=== PATIENT | female | born 1960 | race Caucasian/White ===

== ENCOUNTER 2016-11-14 22:26 | Emergency (ER) | payer MEDICAID ==
[~2016-11-14] VITALS: Ht 170.2 cm; Wt 90.4 kg
[2016-11-14 22:32] VITALS: BP 180/109
[2016-11-14] MEDS ORDERED: IBUPROFEN 200 MG TABLET ONE (23:40)
[2016-11-15] MEDS ORDERED: IBUPROFEN 200 MG TABLET PO ONE
== END 2016-11-14 23:49 | disposition home or self-care (01) ==
LOC: ED 23:45
DX: S93.491A Sprain of other ligament of right ankle, initial encounter (principal); S93.611A Sprain of tarsal ligament of right foot, initial encounter; I10 Essential (primary) hypertension; X50.1XXA Overexertion from prolonged static or awkward postures, initial encounter; Y93.89 Activity, other specified; Y92.828 Other wilderness area as the place of occurrence of the external cause; Y99.8 Other external cause status; Z85.828 Personal history of other malignant neoplasm of skin; Z88.1 Allergy status to other antibiotic agents; Z88.0 Allergy status to penicillin
CPT/HCPCS: 99284

== ENCOUNTER 2016-11-15 19:42 | Emergency (ER) | payer MEDICAID ==
[~2016-11-15] VITALS: Ht 170.2 cm; Wt 92.4 kg
[2016-11-15 20:02] VITALS: BP 146/79
== END 2016-11-15 21:51 | disposition home or self-care (01) ==
LOC: ED 21:45
DX: S93.491A Sprain of other ligament of right ankle, initial encounter (principal); I10 Essential (primary) hypertension; F10.20 Alcohol dependence, uncomplicated; F17.200 Nicotine dependence, unspecified, uncomplicated; Z88.1 Allergy status to other antibiotic agents; Z88.0 Allergy status to penicillin; X50.1XXA Overexertion from prolonged static or awkward postures, initial encounter; Y93.89 Activity, other specified; Y92.89 Other specified places as the place of occurrence of the external cause; Y99.8 Other external cause status
CPT/HCPCS: 99283

== ENCOUNTER 2016-12-06 01:04 | Emergency (ER) | payer MEDICAID ==
[~2016-12-06] VITALS: Ht 170.2 cm; Wt 93.5 kg
[2016-12-06] MEDS ORDERED: ALBUTEROL/IPRATROPIUM 2.5MG/0.5MG, 3 ML NPPB SCH (02:30)
[2016-12-06 02:52] VITALS: BP 108/67
[2016-12-06] MEDS ORDERED: HYDROcodone/APAP 5/325 TABLET ONE (03:12)
[2016-12-06] MEDS ORDERED: HYDROcodone/APAP 5/325 TABLET PO ONE (03:30)
== END 2016-12-06 03:24 | disposition home or self-care (01) ==
LOC: ED 02:48
DX: J44.1 Chronic obstructive pulmonary disease with (acute) exacerbation (principal); J15.9 Unspecified bacterial pneumonia; F10.20 Alcohol dependence, uncomplicated
CPT/HCPCS: 71020; 93005; 94640; 99284; J7512; J7620

== ENCOUNTER 2017-01-27 20:52 | Emergency (ER) | payer MEDICAID ==
[~2017-01-27] VITALS: Ht 170.2 cm; Wt 96.1 kg
[2017-01-27 21:00] VITALS: BP 161/101
[2017-01-28] MEDS ORDERED: KETOROLAC 30 MG/1 ML ONE (00:18)
[2017-01-28] MEDS ORDERED: KETOROLAC 30 MG/1 ML IM ONE (00:30)
[2017-01-28] MEDS ORDERED: THIAMINE 100MG TABLET ONE (01:01)
[2017-01-28] MEDS ORDERED: DIAZEPAM 5 MG TABLET ONE (01:02)
[2017-01-28] MEDS ORDERED: ONDANSETRON ODT 4 MG ONE (01:02)
== END 2017-01-28 01:31 | disposition home or self-care (01) ==
LOC: ED 22:59
DX: M54.41 Lumbago with sciatica, right side (principal); I10 Essential (primary) hypertension; F10.10 Alcohol abuse, uncomplicated; E11.9 Type 2 diabetes mellitus without complications; J44.9 Chronic obstructive pulmonary disease, unspecified; Z85.828 Personal history of other malignant neoplasm of skin; F17.200 Nicotine dependence, unspecified, uncomplicated; Z88.0 Allergy status to penicillin
CPT/HCPCS: 72110; 81003; 96372; 99285; J1885

== ENCOUNTER 2017-01-31 20:46 | Emergency (ER) | payer MEDICAID ==
[~2017-01-31] VITALS: Ht 175.3 cm; Wt 97.9 kg
[2017-01-31] MEDS ORDERED: PROMETHAZINE 25 MG/ML, 1ML ONE (21:40)
[2017-01-31] MEDS ORDERED: MAALOX/HYOSCYAMINE/LIDOCAINE 45 ML BTL ONE (21:41)
[2017-01-31] MEDS ORDERED: ONDANSETRON ODT 4 MG ONE (21:41)
[2017-01-31] MEDS ORDERED: PANTOPRAZOLE 20MG TABLET ONE (21:41)
[2017-01-31 21:53] LABS: HEMATOCRIT 40.4 % (34.6-47.8); WHITE BLOOD COUNT 5.9 x10^3/uL (3.4-10)
[2017-01-31] MEDS ORDERED: PROMETHAZINE 25 MG/ML, 1ML IM ONE (22:00)
[2017-01-31] MEDS ORDERED: ONDANSETRON ODT 4 MG PO ONE (22:00)
[2017-01-31] MEDS ORDERED: PANTOPRAZOLE 20MG TABLET PO ONE (22:00)
[2017-01-31] MEDS ORDERED: MAALOX/HYOSCYAMINE/LIDOCAINE 45 ML BTL PO ONE (22:00)
[2017-01-31 22:02] LABS: ASPARTATE AMINO TRANSFERASE 45 U/L (15-37); BLOOD UREA NITROGEN 22 mg/dL (7-18)
[2017-02-01 00:13] VITALS: BP 115/96
== END 2017-02-01 00:21 | disposition home or self-care (01) ==
LOC: ED 22:09
DX: K29.20 Alcoholic gastritis without bleeding (principal); F10.20 Alcohol dependence, uncomplicated; E11.9 Type 2 diabetes mellitus without complications; I10 Essential (primary) hypertension; J44.9 Chronic obstructive pulmonary disease, unspecified; Z88.0 Allergy status to penicillin
CPT/HCPCS: 36415; 80053; 80307; 83690; 85025; 96372; 99284; J2550; Q0162; G0479

== ENCOUNTER 2017-02-13 17:12 | Emergency (ER) | payer MEDICAID ==
[~2017-02-13] VITALS: Ht 170.2 cm; Wt 95.4 kg
[2017-02-13] MEDS ORDERED: ALBUTEROL/IPRATROPIUM 2.5MG/0.5MG, 3 ML ONE (17:59)
[2017-02-13 18:14] LABS: HEMATOCRIT 42.2 % (34.6-47.8); HEMOGLOBIN 14.7 g/dL (11.7-16.4); WHITE BLOOD COUNT 6.5 x10^3/uL (3.4-10)
[2017-02-13 18:22] LABS: ASPARTATE AMINO TRANSFERASE 33 U/L (15-37); BLOOD UREA NITROGEN 11 mg/dL (7-18)
[2017-02-13 18:57] LABS: IS PT STATUS REG ER OR PRE ER? YES
[2017-02-13 19:36] VITALS: BP 138/84
== END 2017-02-13 19:40 | disposition home or self-care (01) ==
LOC: ED 18:30
DX: J20.9 Acute bronchitis, unspecified (principal); J04.0 Acute laryngitis; E11.9 Type 2 diabetes mellitus without complications; I10 Essential (primary) hypertension; J44.9 Chronic obstructive pulmonary disease, unspecified; Z59.0 Homelessness
CPT/HCPCS: 36415; 71010; 80053; 83880; 84484; 85025; 93005; 94640; 99285; J7512

== ENCOUNTER 2017-02-22 16:41 | Emergency (ER) | payer MEDICAID ==
[2017-02-22 16:52] VITALS: BP 160/101
[2017-02-22] MEDS ORDERED: KETOROLAC 30 MG/1 ML ONE (17:28)
[2017-02-22] MEDS ORDERED: KETOROLAC 30 MG/1 ML IM ONE (17:30)
== END 2017-02-22 18:22 | disposition home or self-care (01) ==
LOC: ED 18:10
DX: S80.11XA Contusion of right lower leg, initial encounter (principal); J44.9 Chronic obstructive pulmonary disease, unspecified; E11.9 Type 2 diabetes mellitus without complications; I10 Essential (primary) hypertension; Z59.0 Homelessness; V09.9XXA Pedestrian injured in unspecified transport accident, initial encounter; Y93.89 Activity, other specified; Y99.8 Other external cause status; Y92.410 Unspecified street and highway as the place of occurrence of the external cause
CPT/HCPCS: 73590; 96372; 99284; J1885

== ENCOUNTER 2017-02-28 13:23 | Emergency (ER) | payer MEDICAID ==
[~2017-02-28] VITALS: Ht 170.2 cm; Wt 210.8 kg
[2017-02-28] MEDS ORDERED: SODIUM CHLORIDE FLUSH 10ML SYR IVF ONE (14:00)
[2017-02-28] MEDS ORDERED: ALBUTEROL/IPRATROPIUM 2.5MG/0.5MG, 3 ML ONE (14:25)
[2017-02-28 14:30] LABS: BASOPHILS # (AUTO) 0.01 x10^3/uL (0-0.1); BASOPHILS % (AUTO) 0 % (0-1); EOSINOPHILS # (AUTO) 0.15 x10^3/uL (0-0.4); EOSINOPHILS % (AUTO) 2 % (1-7); LYMPHOCYTES # (AUTO) 2.84 x10^3/uL (1-3.4); LYMPHOCYTES % (AUTO) 35 % (22-44); MD NO; MEAN CORPUSCULAR HEMOGLOBIN 33.7 pg (27.0-34.8); MEAN CORPUSCULAR HGB CONC 34.3 g/dL (32.4-35.8); MEAN CORPUSCULAR VOLUME 98.3 fL (80-100); MONOCYTES # (AUTO) 0.47 x10^3/uL (0.2-0.8); MONOCYTES % (AUTO) 6 % (2-9); NEUTROPHILS # (AUTO) 4.63 x10^3/uL (1.8-6.8); NEUTROPHILS % (AUTO) 57 % (42-75); PLATELET COUNT 199 x10^3/uL (130-400); RED BLOOD COUNT 4.24 x10^6/uL (3.82-5.3); RED CELL DISTRIBUTION WIDTH 14.2 % (9.6-15.2)
[2017-02-28] MEDS: ALBUTEROL/IPRATROPIUM 2.5MG/0.5MG, 3 ML NPPB SCH (14:34)
[2017-02-28 14:43] LABS: ALBUMIN 3.7 g/dL (3.4-5.0); ANION GAP 9 mmol/L (5-15); CALCIUM 9.1 mg/dL (8.5-10.1); CHLORIDE 102 mmol/L (98-107)
[2017-02-28 14:44] LABS: CREATININE 0.67 mg/dL (0.55-1.02)
[2017-02-28] MEDS ORDERED: DEXAMETHASONE 4 MG TABLET ONE ×2 (14:51→14:54)
[2017-02-28] MEDS ORDERED: DEXAMETHASONE 4 MG TABLET PO ONE (15:00)
[2017-02-28] MEDS ORDERED: ALBUTEROL/IPRATROPIUM 2.5MG/0.5MG, 3 ML NPPB SCH (15:00)
[2017-02-28 15:15] VITALS: BP 134/74
== END 2017-02-28 15:20 | disposition home or self-care (01) ==
LOC: ED 14:58
DX: J44.1 Chronic obstructive pulmonary disease with (acute) exacerbation (principal); J20.8 Acute bronchitis due to other specified organisms; I10 Essential (primary) hypertension; E11.9 Type 2 diabetes mellitus without complications
CPT/HCPCS: 36415; 71020; 80048; 82040; 85025; 93005; 94640; 99285; J7512; J7620

== ENCOUNTER 2017-03-02 21:55 | Inpatient (IN) | payer MEDICAID ==
[~2017-03-02] VITALS: Ht 170.2 cm; Wt 97.3 kg
[2017-03-02] MEDS ORDERED: RACEPINEPHRINE INH 2.25%, 0.5ML ONE (22:13)
[2017-03-02] MEDS ORDERED: ALBUTEROL SULFATE 2.5 MG/3 ML NPPB ONE (22:30)
[2017-03-02] MEDS ORDERED: DEXAMETHASONE 4 MG TABLET PO ONE (22:30)
[2017-03-02] MEDS ORDERED: RACEPINEPHRINE INH 2.25%, 0.5ML NPPB PRN (22:30)
[2017-03-02] MEDS ORDERED: DEXAMETHASONE 4 MG TABLET ONE (23:07)
[2017-03-02 23:41] LABS: BASOPHILS # (AUTO) 0.02 x10^3/uL (0-0.1); BASOPHILS % (AUTO) 0 % (0-1); EOSINOPHILS # (AUTO) 0.08 x10^3/uL (0-0.4); EOSINOPHILS % (AUTO) 1 % (1-7); LYMPHOCYTES # (AUTO) 2.92 x10^3/uL (1-3.4); LYMPHOCYTES % (AUTO) 51 % (22-44); MD NO; MEAN CORPUSCULAR HEMOGLOBIN 34.4 pg (27.0-34.8); MEAN CORPUSCULAR HGB CONC 35.1 g/dL (32.4-35.8); MEAN CORPUSCULAR VOLUME 97.9 fL (80-100); MONOCYTES # (AUTO) 0.38 x10^3/uL (0.2-0.8); MONOCYTES % (AUTO) 7 % (2-9); NEUTROPHILS # (AUTO) 2.35 x10^3/uL (1.8-6.8); NEUTROPHILS % (AUTO) 41 % (42-75); PLATELET COUNT 165 x10^3/uL (130-400); RED BLOOD COUNT 3.93 x10^6/uL (3.82-5.3); RED CELL DISTRIBUTION WIDTH 13.9 % (9.6-15.2)
[2017-03-02 23:52] LABS: ALANINE AMINOTRANSFERASE 50 U/L (12-78); ALBUMIN 3.4 g/dL (3.4-5.0); ANION GAP 10 mmol/L (5-15); CALCIUM 8.5 mg/dL (8.5-10.1); CHLORIDE 103 mmol/L (98-107); CREATININE 0.68 mg/dL (0.55-1.02)
[2017-03-02 23:54] LABS: ALKALINE PHOSPHATASE 73 U/L (45-117); BILIRUBIN,TOTAL 0.2 mg/dL (0.2-1.0)
[2017-03-03] MEDS ORDERED: POTASSIUM CHLORIDE 20 MEQ TAB.ER.PRT PO ONE ×2 (00:30→07:00)
[2017-03-03] MEDS ORDERED: POTASSIUM CHLORIDE 20 MEQ TAB.ER.PRT ONE (01:14)
[2017-03-03] MEDS ORDERED: ONDANSETRON 2MG/ML, 2ML IVPush PRN ×2 (01:30→07:00)
[2017-03-03] MEDS ORDERED: POTASSIUM CHLORIDE 20 MEQ PACKET ONE (01:55)
[2017-03-03] MEDS ORDERED: NS + 20MEQ KCL 1,000 ML IV SCH (02:00)
[2017-03-03 03:06] VITALS: BP 155/95
[2017-03-03] MEDS ORDERED: ALBUTEROL SULFATE 2.5 MG/3 ML NPPB PRN (04:00)
[2017-03-03] MEDS ORDERED: OMNIPAQUE 350 MG/ML, 100ML BOTTLE ONE (04:13)
[2017-03-03] MEDS ORDERED: SODIUM CHLORIDE 0.9% 1,000 ML IV SCH (06:50)
[2017-03-03] MEDS ORDERED: POTASSIUM CHLORIDE 40 MEQ, MVI ADULT 10 ML, FOLIC ACID 1 MG, MAGNESIUM SULFATE 2 GM in ... IV SCH (06:57)
[2017-03-03] MEDS ORDERED: morphine SULFATE 10 MG/ML, 1ML IVPush PRN (07:00)
[2017-03-03] MEDS ORDERED: CHLORDIAZEPOXIDE 25 MG CAPSULE PO PRN ×2 (07:00)
[2017-03-03] MEDS ORDERED: DOCUSATE 100 MG CAPSULE PO PRN (07:00)
[2017-03-03] MEDS ORDERED: LORazepam 2 MG/ML, 1ML IV PRN ×2 (07:00)
[2017-03-03] MEDS ORDERED: ACETAMINOPHEN 325 MG TABLET PO PRN ×2 (07:00)
[2017-03-03] MEDS ORDERED: LORazepam 1MG TABLET PO PRN (07:00)
[2017-03-03] MEDS ORDERED: PROMETHAZINE 25 MG/ML, 1ML IM PRN (07:00)
[2017-03-03] MEDS ORDERED: BISACODYL 10 MG SUPP PR PRN (07:00)
[2017-03-03] MEDS ORDERED: CHLORDIAZEPOXIDE 10 MG CAPSULE PO PRN (07:00)
[2017-03-03] MEDS ORDERED: ONDANSETRON ODT 4 MG PO PRN (07:00)
[2017-03-03] MEDS ORDERED: ALUMINUM/MAG/SIMETHICONE 30 ML UDC PO PRN (07:00)
[2017-03-03] MEDS ORDERED: INSULIN ASPART 100 UNITS/ML, PEN SQ-INSULIN SCH (07:30)
[2017-03-03 07:50] VITALS: BP 171/111
[2017-03-03 07:55] LABS: MEAN CORPUSCULAR HEMOGLOBIN 34.2 pg (27.0-34.8); MEAN CORPUSCULAR HGB CONC 34.8 g/dL (32.4-35.8); MEAN CORPUSCULAR VOLUME 98.1 fL (80-100); MEAN PLATELET VOLUME 8.4 fL (7.4-10.4); PLATELET COUNT 180 x10^3/uL (130-400); RED BLOOD COUNT 4.29 x10^6/uL (3.82-5.3); RED CELL DISTRIBUTION WIDTH 14.2 % (9.6-15.2)
[2017-03-03 08:06] LABS: ALANINE AMINOTRANSFERASE 60 U/L (12-78); ALBUMIN 3.7 g/dL (3.4-5.0); ANION GAP 8 mmol/L (5-15); CALCIUM 8.7 mg/dL (8.5-10.1); CHLORIDE 102 mmol/L (98-107)
[2017-03-03 08:09] LABS: ALKALINE PHOSPHATASE 85 U/L (45-117); BILIRUBIN,TOTAL 0.4 mg/dL (0.2-1.0); CHOL/HDL RATIO 2.5; CHOLESTEROL, TOTAL 197 mg/dL (140-239); HDL CHOL % 41 % (28-40); HDL CHOLESTEROL (DIRECT) 80 mg/dL (40-60); LDL CHOLESTEROL,CALCULATED 96 mg/dL (54-169); LDL/HDL RATIO 1.2 (0.5-3.0); TOTAL PROTEIN 7.9 g/dL (6.4-8.2); TRIGLYCERIDES 103 mg/dL (50-200); TROPONIN I 0.112 ng/mL (0.000-0.045); VLDL CHOLESTEROL 21 mg/dL (0-25)
[2017-03-03 08:15] LABS: BASOPHILS # (AUTO) 0.01 x10^3/uL (0-0.1); BASOPHILS % (AUTO) 0 % (0-1); EOSINOPHILS % (AUTO) 0 % (1-7); LYMPHOCYTES # (AUTO) 0.64 x10^3/uL (1-3.4); LYMPHOCYTES % (AUTO) 20 % (22-44); MD SCAN; MONOCYTES # (AUTO) 0.04 x10^3/uL (0.2-0.8); MONOCYTES % (AUTO) 1 % (2-9); NEUTROPHILS # (AUTO) 2.44 x10^3/uL (1.8-6.8); NEUTROPHILS % (AUTO) 78 % (42-75)
[2017-03-03 08:23] LABS: HEMOGLOBIN A1C 5.7 % (4.2-6.3)
[2017-03-03] MEDS: LISINOPRIL 10 MG TABLET PO SCH (08:39)
[2017-03-03] MEDS: AMLODIPINE 5 MG TABLET PO SCH (08:39)
[2017-03-03] MEDS: HEPARIN 5,000 UNITS/ML, 1ML SQ SCH ×3 (08:39→22:50)
[2017-03-03] MEDS: METOPROLOL TARTRATE 25 MG TABLET PO SCH ×2 (08:39→18:40)
[2017-03-03] MEDS: ASPIRIN 325 MG TABLET EC PO SCH (08:39)
[2017-03-03] MEDS: ALBUTEROL SULFATE 2.5 MG/3 ML NPPB SCH ×4 (08:44→18:55)
[2017-03-03 09:50] VITALS: BP 166/97
[2017-03-03 10:07] LABS: MICROSCOPIC NOT IND
[2017-03-03 10:09] LABS: CULTURE INDICATED? NO
[2017-03-03 10:19] LABS: AMPHETAMINE SCREEN, URINE Positive (Negative); BARBITURATE SCREEN, URINE Negative (Negative); BENZODIAZEPINE SCREEN, URINE Negative (Negative); CANNABINOID SCREEN, URINE Negative (Negative); COCAINE SCREEN, URINE Negative (Negative); METHADONE SCREEN, URINE Negative (Negative); OPIATE SCREEN, URINE Negative (Negative)
[2017-03-03] MEDS ORDERED: MAGNESIUM SULFATE 6 GM in SODIUM CHLORIDE 0.9% 150 ML IV ONE (11:00)
[2017-03-03] MEDS ORDERED: hydrALAzine 20 MG/ML, 1ML IV PRN (11:00)
[2017-03-03] MEDS: INSULIN ASPART 100 UNITS/ML, PEN SQ-INSULIN SCH ×3 (12:34→21:13)
[2017-03-03 13:03] LABS: TROPONIN I 0.082 ng/mL (0.000-0.045)
[2017-03-03 13:04] VITALS: BP 125/75
[2017-03-03] MEDS: LORazepam 0.5MG TABLET PO PRN ×2 (13:43→21:13)
[2017-03-03 19:11] VITALS: BP 136/89
[2017-03-04 02:34] VITALS: BP 144/91
[2017-03-04] MEDS: LORazepam 0.5MG TABLET PO PRN ×2 (05:05→09:13)
[2017-03-04] MEDS: HEPARIN 5,000 UNITS/ML, 1ML SQ SCH (05:05)
[2017-03-04] MEDS: ASPIRIN 325 MG TABLET EC PO SCH (05:06)
[2017-03-04] MEDS: METOPROLOL TARTRATE 25 MG TABLET PO SCH (05:06)
[2017-03-04 05:35] LABS: CHLORIDE 103 mmol/L (98-107)
[2017-03-04 05:50] LABS: ANION GAP 6 mmol/L (5-15); CALCIUM 7.8 mg/dL (8.5-10.1); CREATININE 0.61 mg/dL (0.55-1.02); TROPONIN I 0.072 ng/mL (0.000-0.045)
[2017-03-04] MEDS: ALBUTEROL SULFATE 2.5 MG/3 ML NPPB SCH (06:40)
[2017-03-04] MEDS: INSULIN ASPART 100 UNITS/ML, PEN SQ-INSULIN SCH (07:33)
[2017-03-04 07:38] VITALS: BP 120/72
[2017-03-04] MEDS: AMLODIPINE 5 MG TABLET PO SCH (09:05)
[2017-03-04] MEDS: LISINOPRIL 10 MG TABLET PO SCH (09:05)
== END 2017-03-04 11:27 | disposition left against medical advice (07) | DRG 189 ==
LOC: ED 22:31 → EDIP 03-03 01:24 → 4WST 03-03 02:56
PROVIDERS: ADMIT Surgery; ATTEND Internal Medicine
DX: J96.21 Acute and chronic respiratory failure with hypoxia (principal); E11.65 Type 2 diabetes mellitus with hyperglycemia; J44.1 Chronic obstructive pulmonary disease with (acute) exacerbation; E83.42 Hypomagnesemia; E78.5 Hyperlipidemia, unspecified; E87.6 Hypokalemia; F10.229 Alcohol dependence with intoxication, unspecified; I10 Essential (primary) hypertension; J04.0 Acute laryngitis; M85.80 Other specified disorders of bone density and structure, unspecified site; Z87.891 Personal history of nicotine dependence; Z59.0 Homelessness; Z71.6 Tobacco abuse counseling; Z87.01 Personal history of pneumonia (recurrent); Z88.0 Allergy status to penicillin; Z88.1 Allergy status to other antibiotic agents
CPT/HCPCS: 36415; 36600; 70491; 80048; 80053; 80061; 80307; 81003; 82140; 82803; 82962; 83036; 83690; 83735; 84100; 84484; 85025; 93005; 94640; 99285; J1644; J1815; J3475; J3480; J7042; J7613; Q9967; G0479; J7512

== ENCOUNTER 2017-03-11 02:24 | Emergency (ER) | payer MEDICAID ==
[~2017-03-11] VITALS: Ht 170.2 cm; Wt 100.0 kg
[2017-03-11] MEDS ORDERED: ALBUTEROL/IPRATROPIUM 2.5MG/0.5MG, 3 ML ONE (02:48)
[2017-03-11] MEDS ORDERED: SODIUM CHLORIDE FLUSH 10ML SYR IVF ONE (03:00)
[2017-03-11] MEDS ORDERED: ALBUTEROL/IPRATROPIUM 2.5MG/0.5MG, 3 ML NPPB ONE (03:00)
[2017-03-11 03:01] LABS: BASOPHILS # (AUTO) 0.02 x10^3/uL (0-0.1); BASOPHILS % (AUTO) 0 % (0-1); EOSINOPHILS # (AUTO) 0.11 x10^3/uL (0-0.4); EOSINOPHILS % (AUTO) 1 % (1-7); LYMPHOCYTES # (AUTO) 2.82 x10^3/uL (1-3.4); LYMPHOCYTES % (AUTO) 35 % (22-44); MD NO; MEAN CORPUSCULAR HGB CONC 34.4 g/dL (32.4-35.8); MEAN CORPUSCULAR VOLUME 98.8 fL (80-100); MEAN PLATELET VOLUME 7.4 fL (7.4-10.4); MONOCYTES # (AUTO) 0.53 x10^3/uL (0.2-0.8); MONOCYTES % (AUTO) 7 % (2-9); NEUTROPHILS % (AUTO) 56 % (42-75); PLATELET COUNT 193 x10^3/uL (130-400); RED BLOOD COUNT 4.07 x10^6/uL (3.82-5.3); RED CELL DISTRIBUTION WIDTH 14.9 % (9.6-15.2)
[2017-03-11 03:13] LABS: ALBUMIN 3.5 g/dL (3.4-5.0); ANION GAP 5 mmol/L (5-15); CALCIUM 8.5 mg/dL (8.5-10.1); CHLORIDE 104 mmol/L (98-107); CREATININE 0.73 mg/dL (0.55-1.02)
[2017-03-11 04:09] VITALS: BP 137/80
== END 2017-03-11 04:47 | disposition home or self-care (01) ==
LOC: ED 04:41
DX: J44.9 Chronic obstructive pulmonary disease, unspecified (principal); I10 Essential (primary) hypertension; E11.9 Type 2 diabetes mellitus without complications; F10.229 Alcohol dependence with intoxication, unspecified
CPT/HCPCS: 36415; 71045; 80048; 82040; 85025; 93005; 94640; 99285; J7512; J7620

== ENCOUNTER 2017-03-26 15:52 | Inpatient (IN) | payer MEDICAID ==
[~2017-03-26] VITALS: Ht 170.2 cm; Wt 107.8 kg
[2017-03-26] MEDS ORDERED: ALBUTEROL SULFATE 2.5 MG/3 ML NPPB ONE (16:30)
[2017-03-26 16:44] LABS: BASOPHILS # (AUTO) 0.02 x10^3/uL (0-0.1); BASOPHILS % (AUTO) 0 % (0-1); EOSINOPHILS # (AUTO) 0.14 x10^3/uL (0-0.4); EOSINOPHILS % (AUTO) 2 % (1-7); LYMPHOCYTES # (AUTO) 2.56 x10^3/uL (1-3.4); LYMPHOCYTES % (AUTO) 40 % (22-44); MD NO; MEAN CORPUSCULAR HEMOGLOBIN 34.1 pg (27.0-34.8); MEAN CORPUSCULAR VOLUME 100.4 fL (80-100); MEAN PLATELET VOLUME 7.5 fL (7.4-10.4); MONOCYTES # (AUTO) 0.42 x10^3/uL (0.2-0.8); MONOCYTES % (AUTO) 7 % (2-9); NEUTROPHILS # (AUTO) 3.35 x10^3/uL (1.8-6.8); NEUTROPHILS % (AUTO) 52 % (42-75); PLATELET COUNT 201 x10^3/uL (130-400); RED BLOOD COUNT 4.05 x10^6/uL (3.82-5.3); RED CELL DISTRIBUTION WIDTH 14.8 % (9.6-15.2)
[2017-03-26 16:54] LABS: ALANINE AMINOTRANSFERASE 41 U/L (12-78); ALBUMIN 3.4 g/dL (3.4-5.0); ANION GAP 8 mmol/L (5-15); CALCIUM 8.1 mg/dL (8.5-10.1); CHLORIDE 106 mmol/L (98-107); CREATININE 0.87 mg/dL (0.55-1.02)
[2017-03-26 16:57] LABS: ALKALINE PHOSPHATASE 79 U/L (45-117); BILIRUBIN,TOTAL 0.3 mg/dL (0.2-1.0); TOTAL PROTEIN 7.4 g/dL (6.4-8.2)
[2017-03-26] MEDS ORDERED: ALBUTEROL SULFATE 2.5 MG/3 ML ONE (18:51)
[2017-03-26] MEDS ORDERED: ALBUTEROL/IPRATROPIUM 2.5MG/0.5MG, 3 ML NPPB PRN (19:30)
[2017-03-26] MEDS ORDERED: MAGNESIUM SULFATE PMX 2GM/50ML 50 ML IV ONE (22:00)
[2017-03-26] MEDS ORDERED: BISACODYL 10 MG SUPP PR PRN (22:00)
[2017-03-26] MEDS ORDERED: GUAIFENESIN/DM 200-20MG, 10ML UDC PO PRN (22:00)
[2017-03-26] MEDS ORDERED: POLYETHYLENE GLYCOL 17 GM PACKET PO PRN (22:00)
[2017-03-26] MEDS ORDERED: ONDANSETRON 2MG/ML, 2ML IVPush PRN (22:00)
[2017-03-26 22:41] VITALS: BP 164/87
[2017-03-26] MEDS: DOXYCYCLINE 100 MG in DEXTROSE 5% 250 ML IV SCH (23:00)
[2017-03-26] MEDS: methylPREDNISolone SOD SUCC 125 MG/2 ML IVPush SCH (23:46)
[2017-03-26] MEDS: NS + 20MEQ KCL 1,000 ML IV SCH (23:46)
[2017-03-26] MEDS: HEPARIN 5,000 UNITS/ML, 1ML SQ SCH (23:46)
[2017-03-26] MEDS: NICOTINE 21 MG/24 HR PATCH.TD24 TD SCH (23:46)
[2017-03-27] VITALS (10 sets, daily range): BP systolic 132–185; BP diastolic 74–102
[2017-03-27] MEDS: LORazepam 2 MG/ML, 1ML IVPush PRN ×3 (03:10→18:05)
[2017-03-27 06:00] LABS: ALBUMIN 3.4 g/dL (3.4-5.0); ANION GAP 7 mmol/L (5-15); CALCIUM 8.2 mg/dL (8.5-10.1); CHLORIDE 105 mmol/L (98-107)
[2017-03-27] MEDS ORDERED: ALBUTEROL/IPRATROPIUM 2.5MG/0.5MG, 3 ML NPPB SCH (06:00)
[2017-03-27 06:02] LABS: BASOPHILS # (AUTO) 0.01 x10^3/uL (0-0.1); BASOPHILS % (AUTO) 0 % (0-1); EOSINOPHILS % (AUTO) 0 % (1-7); LYMPHOCYTES # (AUTO) 0.58 x10^3/uL (1-3.4); LYMPHOCYTES % (AUTO) 18 % (22-44); MD NO; MEAN CORPUSCULAR HEMOGLOBIN 34.5 pg (27.0-34.8); MEAN CORPUSCULAR HGB CONC 34.5 g/dL (32.4-35.8); MEAN PLATELET VOLUME 8.3 fL (7.4-10.4); MONOCYTES # (AUTO) 0.02 x10^3/uL (0.2-0.8); MONOCYTES % (AUTO) 1 % (2-9); NEUTROPHILS # (AUTO) 2.56 x10^3/uL (1.8-6.8); NEUTROPHILS % (AUTO) 81 % (42-75); PLATELET COUNT 177 x10^3/uL (130-400); RED BLOOD COUNT 4.01 x10^6/uL (3.82-5.3); RED CELL DISTRIBUTION WIDTH 14.7 % (9.6-15.2)
[2017-03-27 06:04] LABS: ALANINE AMINOTRANSFERASE 37 U/L (12-78); ALKALINE PHOSPHATASE 74 U/L (45-117); BILIRUBIN,TOTAL 0.4 mg/dL (0.2-1.0); TOTAL PROTEIN 7.4 g/dL (6.4-8.2)
[2017-03-27] MEDS: methylPREDNISolone SOD SUCC 125 MG/2 ML IVPush SCH ×3 (06:15→18:05)
[2017-03-27] MEDS: ALBUTEROL/IPRATROPIUM 2.5MG/0.5MG, 3 ML NPPB SCH ×5 (07:07→20:42)
[2017-03-27] MEDS: HEPARIN 5,000 UNITS/ML, 1ML SQ SCH ×3 (08:55→22:36)
[2017-03-27] MEDS: MULTIVITAMIN 1 TABLET PO SCH (08:56)
[2017-03-27] MEDS: THIAMINE 100MG TABLET PO SCH (08:56)
[2017-03-27] MEDS: FOLIC ACID 1 MG TABLET PO SCH (08:56)
[2017-03-27] MEDS: GUAIFENESIN ER 600 MG TABLET PO SCH ×2 (08:57→20:54)
[2017-03-27] MEDS: SENNA/DOCUSATE TABLET PO SCH (08:57)
[2017-03-27] MEDS: ACETAMINOPHEN 325 MG TABLET PO PRN ×3 (08:58→18:05)
[2017-03-27] MEDS: FLUTICASONE/VILANTEROL 100-25MCG/INH INH SCH (10:15)
[2017-03-27] MEDS ORDERED: ENALAPRILAT 1.25 MG/ML, 2ML IV PRN (10:30)
[2017-03-27] MEDS: DOXYCYCLINE 100 MG in DEXTROSE 5% 250 ML IV SCH ×2 (10:50→22:37)
[2017-03-27] MEDS ORDERED: KETOROLAC 30 MG/1 ML IVPush ONE (15:00)
[2017-03-27] MEDS: NS + 20MEQ KCL 1,000 ML IV SCH (15:09)
[2017-03-27] MEDS: NICOTINE 21 MG/24 HR PATCH.TD24 TD SCH (20:55)
[2017-03-28] MEDS: methylPREDNISolone SOD SUCC 125 MG/2 ML IVPush SCH ×2 (00:39→05:36)
[2017-03-28] MEDS: ALBUTEROL/IPRATROPIUM 2.5MG/0.5MG, 3 ML NPPB SCH ×2 (01:37→07:35)
[2017-03-28 02:30] VITALS: BP 151/83
[2017-03-28] MEDS: NS + 20MEQ KCL 1,000 ML IV SCH (02:48)
[2017-03-28] MEDS: LORazepam 2 MG/ML, 1ML IVPush PRN ×2 (05:36→09:31)
[2017-03-28 06:04] LABS: BASOPHILS % (AUTO) 0 % (0-1); EOSINOPHILS % (AUTO) 0 % (1-7); LYMPHOCYTES # (AUTO) 0.47 x10^3/uL (1-3.4); LYMPHOCYTES % (AUTO) 4 % (22-44); MD NO; MEAN CORPUSCULAR HEMOGLOBIN 34.2 pg (27.0-34.8); MEAN CORPUSCULAR HGB CONC 33.8 g/dL (32.4-35.8); MEAN CORPUSCULAR VOLUME 101.2 fL (80-100); MEAN PLATELET VOLUME 8.1 fL (7.4-10.4); MONOCYTES # (AUTO) 0.23 x10^3/uL (0.2-0.8); MONOCYTES % (AUTO) 2 % (2-9); NEUTROPHILS # (AUTO) 10.42 x10^3/uL (1.8-6.8); NEUTROPHILS % (AUTO) 94 % (42-75); PLATELET COUNT 201 x10^3/uL (130-400); RED BLOOD COUNT 3.88 x10^6/uL (3.82-5.3); RED CELL DISTRIBUTION WIDTH 15.3 % (9.6-15.2)
[2017-03-28 06:05] LABS: ANION GAP 7 mmol/L (5-15); CALCIUM 8.8 mg/dL (8.5-10.1); CHLORIDE 106 mmol/L (98-107)
[2017-03-28 06:06] LABS: CREATININE 0.71 mg/dL (0.55-1.02)
[2017-03-28] MEDS: FLUTICASONE/VILANTEROL 100-25MCG/INH INH SCH (09:00)
[2017-03-28] MEDS: SENNA/DOCUSATE TABLET PO SCH (09:00)
[2017-03-28] MEDS ORDERED: FLUTICASONE/VILANTEROL 200-25MCG/INH INH SCH (09:00)
[2017-03-28] MEDS: HEPARIN 5,000 UNITS/ML, 1ML SQ SCH (09:31)
[2017-03-28] MEDS: THIAMINE 100MG TABLET PO SCH (09:31)
[2017-03-28] MEDS: GUAIFENESIN ER 600 MG TABLET PO SCH (09:31)
[2017-03-28] MEDS: FOLIC ACID 1 MG TABLET PO SCH (09:31)
[2017-03-28] MEDS: MULTIVITAMIN 1 TABLET PO SCH (09:32)
[2017-03-28 09:33] VITALS: BP 148/98
[2017-03-28] MEDS: ACETAMINOPHEN 325 MG TABLET PO PRN (09:35)
== END 2017-03-28 10:11 | disposition left against medical advice (07) | DRG 189 ==
LOC: ED 19:14 → EDIP 21:18 → 3NE 22:36
PROVIDERS: ADMIT Hospitalist; ATTEND Hospitalist
DX: J96.01 Acute respiratory failure with hypoxia (principal); J44.1 Chronic obstructive pulmonary disease with (acute) exacerbation; D75.89 Other specified diseases of blood and blood-forming organs; E11.9 Type 2 diabetes mellitus without complications; E87.6 Hypokalemia; E66.9 Obesity, unspecified; F10.20 Alcohol dependence, uncomplicated; I10 Essential (primary) hypertension; F17.210 Nicotine dependence, cigarettes, uncomplicated; M54.30 Sciatica, unspecified side; Z53.21 Procedure and treatment not carried out due to patient leaving prior to being seen by health care provider; M85.80 Other specified disorders of bone density and structure, unspecified site; Z71.6 Tobacco abuse counseling; Z90.710 Acquired absence of both cervix and uterus; Z91.19 Patient's noncompliance with other medical treatment and regimen; Z87.01 Personal history of pneumonia (recurrent); Z88.0 Allergy status to penicillin; Z88.1 Allergy status to other antibiotic agents; Z68.37 Body mass index [BMI] 37.0-37.9, adult
CPT/HCPCS: 36415; 71046; 80048; 80053; 85025; 93005; 94640; 99285; J1644; J1885; J3480; J7060; J7613; J7620; J2060; J2930; J3475; J7512

== ENCOUNTER 2017-05-11 16:40 | Emergency (ER) | payer MEDICAID ==
[~2017-05-11] VITALS: Ht 170.2 cm; Wt 109.5 kg
[~2017-05-11 16:40] MED LIST: ALBU0.63 NEB; FLUT1DIS IH; TIOT18CA INH
[2017-05-11] MEDS ORDERED: ALBUTEROL/IPRATROPIUM 2.5MG/0.5MG, 3 ML ONE (17:48)
[2017-05-11] MEDS ORDERED: SODIUM CHLORIDE FLUSH 10ML SYR IVF ONE (18:00)
[2017-05-11] MEDS ORDERED: methylPREDNISolone SOD SUCC 125 MG/2 ML IVP ONE (18:00)
[2017-05-11] MEDS ORDERED: ALBUTEROL/IPRATROPIUM 2.5MG/0.5MG, 3 ML NPPB ONE (18:00)
[2017-05-11] MEDS ORDERED: LIDOCAINE 1%, 20ML INFIL ONE (18:00)
[2017-05-11] MEDS ORDERED: methylPREDNISolone SOD SUCC 125 MG/2 ML ONE (18:12)
[2017-05-11 18:18] LABS: BASOPHILS # (AUTO) 0.02 x10^3/uL (0-0.1); BASOPHILS % (AUTO) 0 % (0-1); EOSINOPHILS # (AUTO) 0.19 x10^3/uL (0-0.4); EOSINOPHILS % (AUTO) 3 % (1-7); LYMPHOCYTES # (AUTO) 2.36 x10^3/uL (1-3.4); LYMPHOCYTES % (AUTO) 34 % (22-44); MD NO; MEAN CORPUSCULAR HEMOGLOBIN 33.4 pg (27.0-34.8); MEAN CORPUSCULAR HGB CONC 34.2 g/dL (32.4-35.8); MEAN CORPUSCULAR VOLUME 97.7 fL (80-100); MEAN PLATELET VOLUME 7.5 fL (7.4-10.4); MONOCYTES # (AUTO) 0.55 x10^3/uL (0.2-0.8); MONOCYTES % (AUTO) 8 % (2-9); NEUTROPHILS # (AUTO) 3.81 x10^3/uL (1.8-6.8); NEUTROPHILS % (AUTO) 55 % (42-75); PLATELET COUNT 229 x10^3/uL (130-400); RED BLOOD COUNT 4.19 x10^6/uL (3.82-5.3); RED CELL DISTRIBUTION WIDTH 12.9 % (9.6-15.2)
[2017-05-11 18:28] LABS: ALANINE AMINOTRANSFERASE 27 U/L (12-78); ALBUMIN 3.7 g/dL (3.4-5.0); ANION GAP 11 mmol/L (5-15); CALCIUM 8.6 mg/dL (8.5-10.1); CHLORIDE 105 mmol/L (98-107); CREATININE 0.74 mg/dL (0.55-1.02)
[2017-05-11] MEDS ORDERED: OXYcodone/APAP 5/325MG TABLET PO ONE (18:30)
[2017-05-11] MEDS ORDERED: CLINDAMYCIN 150 MG CAPSULE PO ONE (18:30)
[2017-05-11 18:31] LABS: ALKALINE PHOSPHATASE 84 U/L (45-117); BILIRUBIN,TOTAL 0.2 mg/dL (0.2-1.0); TOTAL PROTEIN 7.5 g/dL (6.4-8.2)
[2017-05-11] MEDS ORDERED: OXYcodone/APAP 5/325MG TABLET ONE (18:52)
[2017-05-11] MEDS ORDERED: CLINDAMYCIN 150 MG CAPSULE ONE (18:52)
[2017-05-11 19:01] VITALS: BP 168/89
== END 2017-05-11 19:30 | disposition home or self-care (01) ==
LOC: ED 19:00
DX: L03.011 Cellulitis of right finger (principal); J44.1 Chronic obstructive pulmonary disease with (acute) exacerbation; E11.9 Type 2 diabetes mellitus without complications; I10 Essential (primary) hypertension; Z87.891 Personal history of nicotine dependence
CPT/HCPCS: 36415; 71045; 73140; 80053; 85025; 94640; 96374; 99285; J2930; J7620

== ENCOUNTER 2017-05-17 18:21 | Inpatient (IN) | payer MEDICAID ==
[~2017-05-17] VITALS: Ht 170.2 cm; Wt 120.2 kg
[2017-05-17] MEDS ORDERED: ALBUTEROL/IPRATROPIUM 2.5MG/0.5MG, 3 ML ONE (18:47)
[2017-05-17] MEDS ORDERED: VANCOMYCIN PER PHARMACY MC PRN (19:00)
[2017-05-17] MEDS ORDERED: CEFTRIAXONE PMX 1GM/50ML 50 ML IVPB ONE (19:00)
[2017-05-17] MEDS ORDERED: ALBUTEROL/IPRATROPIUM 2.5MG/0.5MG, 3 ML NPPB ONE (19:00)
[2017-05-17] MEDS ORDERED: SODIUM CHLORIDE 0.9% 1,000ML IVBOLUS ONE (19:00)
[2017-05-17] MEDS ORDERED: methylPREDNISolone SOD SUCC 125 MG/2 ML IVP ONE (19:00)
[2017-05-17 19:21] LABS: ALBUMIN 3.6 g/dL (3.4-5.0); ANION GAP 7 mmol/L (5-15); CALCIUM 8.7 mg/dL (8.5-10.1); CHLORIDE 101 mmol/L (98-107); CREATININE 0.82 mg/dL (0.55-1.02)
[2017-05-17 19:26] LABS: TROPONIN I < 0.015 ng/mL (0.000-0.045)
[2017-05-17 19:27] LABS: BASOPHILS # (AUTO) 0.03 x10^3/uL (0-0.1); BASOPHILS % (AUTO) 0 % (0-1); EOSINOPHILS % (AUTO) 1 % (1-7); LYMPHOCYTES # (AUTO) 1.49 x10^3/uL (1-3.4); LYMPHOCYTES % (AUTO) 19 % (22-44); MD NO; MEAN CORPUSCULAR HEMOGLOBIN 33.6 pg (27.0-34.8); MEAN CORPUSCULAR HGB CONC 34.4 g/dL (32.4-35.8); MEAN CORPUSCULAR VOLUME 97.7 fL (80-100); MEAN PLATELET VOLUME 8.1 fL (7.4-10.4); MONOCYTES # (AUTO) 0.78 x10^3/uL (0.2-0.8); MONOCYTES % (AUTO) 10 % (2-9); NEUTROPHILS # (AUTO) 5.62 x10^3/uL (1.8-6.8); NEUTROPHILS % (AUTO) 70 % (42-75); PLATELET COUNT 228 x10^3/uL (130-400); RED BLOOD COUNT 4.59 x10^6/uL (3.82-5.3); RED CELL DISTRIBUTION WIDTH 13.6 % (9.6-15.2)
[2017-05-17] MEDS ORDERED: VANCOMYCIN 2,000 MG in SODIUM CHLORIDE 0.9% 500 ML IV ONE (19:30)
[2017-05-17] MEDS ORDERED: methylPREDNISolone SOD SUCC 125 MG/2 ML ONE (20:23)
[2017-05-17] MEDS ORDERED: CEFTRIAXONE PMX 1GM/50ML 50 ML ONE (20:23)
[2017-05-17] MEDS ORDERED: DIPHENHYDRAMINE 50 MG/ML, 1ML ONE (20:37)
[2017-05-17] MEDS ORDERED: DIPHENHYDRAMINE 50 MG/ML, 1ML IVPush ONE (21:00)
[2017-05-17] MEDS ORDERED: POLYETHYLENE GLYCOL 17 GM PACKET PO PRN (21:30)
[2017-05-17] MEDS ORDERED: BISACODYL 10 MG SUPP PR PRN (21:30)
[2017-05-17] MEDS ORDERED: morphine SULFATE 10 MG/ML, 1ML IVPush PRN (21:30)
[2017-05-17] MEDS: HEPARIN 5,000 UNITS/ML, 1ML SQ SCH (21:30)
[2017-05-17] MEDS: hydrALAzine 20 MG/ML, 1ML IVPush PRN (21:55)
[2017-05-17] MEDS ORDERED: hydrALAzine 20 MG/ML, 1ML ONE (21:56)
[2017-05-17] MEDS ORDERED: MORPHINE SULFATE 4 MG/ML, 1ML ONE ×2 (21:57→22:13)
[2017-05-17 22:00] LABS: HEMOGLOBIN A1C 6.2 % (4.2-6.3)
[2017-05-17] MEDS ORDERED: TEMPLATE NON-FORMULARY MED. (Fluticasone/Salmeterol** (Advair 100-50 Diskus**) 1 PUFF) IH PRN (22:00)
[2017-05-17] MEDS ORDERED: CEFTRIAXONE PMX 1GM/50ML 50 ML IV SCH (22:00)
[2017-05-17] MEDS ORDERED: ALBUTEROL SULFATE 2.5 MG/3 ML NEB PRN (22:00)
[2017-05-17 22:06] LABS: FREE T4 (FREE THYROXINE) 0.93 ng/dL (0.76-1.46); THYROID STIMULATING HORMONE 6.63 mIU/L (0.358-3.740)
[2017-05-17] MEDS ORDERED: ALBUTEROL/IPRATROPIUM 2.5MG/0.5MG, 3 ML NPPB PRN (22:30)
[2017-05-17 22:32] VITALS: BP 198/109
[2017-05-17 22:56] LABS: MICROSCOPIC NOT IND
[2017-05-17 22:58] LABS: CULTURE INDICATED? NO
[2017-05-17] MEDS: DOXYCYCLINE 100MG TABLET PO SCH (23:34)
[2017-05-17] MEDS: LOSARTAN 50MG TABLET PO SCH (23:34)
[2017-05-17] MEDS: methylPREDNISolone SOD SUCC 125 MG/2 ML IVPush SCH (23:34)
[2017-05-17] MEDS: INSULIN LISPRO 100 UNITS/ML, PEN SQ-INSULIN SCH (23:35)
[2017-05-17] MEDS: NICOTINE 14MG/24 HR PATCH.TD24 TD SCH (23:36)
[2017-05-17 23:47] VITALS: BP 193/119
[2017-05-18] VITALS (7 sets, daily range): BP systolic 137–194; BP diastolic 81–128
[2017-05-18] MEDS: FLUTICASONE/VILANTEROL 200-25MCG/INH INH SCH ×2 (00:07→21:21)
[2017-05-18] MEDS: ENALAPRILAT 1.25 MG/ML, 2ML IVPush PRN ×2 (00:08→00:53)
[2017-05-18] MEDS: GUAIFENESIN/DM 200-20MG, 10ML UDC PO PRN ×2 (00:19→11:29)
[2017-05-18] MEDS: OXYcodone IR 5MG TABLET PO PRN ×2 (03:11→07:43)
[2017-05-18] MEDS: hydrALAzine 20 MG/ML, 1ML IVPush PRN (03:13)
[2017-05-18] MEDS: HEPARIN 5,000 UNITS/ML, 1ML SQ SCH ×3 (04:36→21:20)
[2017-05-18] MEDS: methylPREDNISolone SOD SUCC 125 MG/2 ML IVPush SCH ×4 (04:36→23:17)
[2017-05-18 05:47] LABS: BASOPHILS % (AUTO) 0 % (0-1); EOSINOPHILS % (AUTO) 0 % (1-7); LYMPHOCYTES # (AUTO) 0.62 x10^3/uL (1-3.4); LYMPHOCYTES % (AUTO) 9 % (22-44); MD NO; MEAN CORPUSCULAR HEMOGLOBIN 33.8 pg (27.0-34.8); MEAN CORPUSCULAR HGB CONC 34.5 g/dL (32.4-35.8); MEAN PLATELET VOLUME 8.3 fL (7.4-10.4); MONOCYTES # (AUTO) 0.08 x10^3/uL (0.2-0.8); MONOCYTES % (AUTO) 1 % (2-9); NEUTROPHILS # (AUTO) 6.15 x10^3/uL (1.8-6.8); NEUTROPHILS % (AUTO) 90 % (42-75); PLATELET COUNT 229 x10^3/uL (130-400); RED BLOOD COUNT 4.57 x10^6/uL (3.82-5.3); RED CELL DISTRIBUTION WIDTH 13.5 % (9.6-15.2)
[2017-05-18 05:56] LABS: ALBUMIN 3.6 g/dL (3.4-5.0); ANION GAP 7 mmol/L (5-15); CALCIUM 8.2 mg/dL (8.5-10.1); CHLORIDE 99 mmol/L (98-107)
[2017-05-18 06:01] LABS: ALANINE AMINOTRANSFERASE 34 U/L (12-78); ALKALINE PHOSPHATASE 88 U/L (45-117); BILIRUBIN,TOTAL 0.4 mg/dL (0.2-1.0); CHOL/HDL RATIO 2.6; CHOLESTEROL, TOTAL 219 mg/dL (140-239); CREATININE 1.02 mg/dL (0.55-1.02); HDL CHOL % 39 % (28-40); HDL CHOLESTEROL (DIRECT) 85 mg/dL (40-60); LDL CHOLESTEROL,CALCULATED 117 mg/dL (54-169); LDL/HDL RATIO 1.4 (0.5-3.0); TOTAL PROTEIN 7.7 g/dL (6.4-8.2); TRIGLYCERIDES 83 mg/dL (50-200); VLDL CHOLESTEROL 17 mg/dL (0-25)
[2017-05-18] MEDS: INSULIN LISPRO 100 UNITS/ML, PEN SQ-INSULIN SCH ×4 (08:05→21:00)
[2017-05-18] MEDS: SENNA/DOCUSATE TABLET PO SCH (08:06)
[2017-05-18] MEDS: LOSARTAN 50MG TABLET PO SCH (08:06)
[2017-05-18] MEDS: DOXYCYCLINE 100MG TABLET PO SCH ×2 (08:06→21:20)
[2017-05-18] MEDS: ALBUTEROL/IPRATROPIUM 2.5MG/0.5MG, 3 ML NPPB SCH ×4 (08:30→19:03)
[2017-05-18] MEDS: IPRATROPIUM 0.5 MG/2.5 ML INHA HHN SCH ×3 (10:54→21:00)
[2017-05-18] MEDS: ACETAMINOPHEN 325 MG TABLET PO PRN ×2 (17:48→23:19)
[2017-05-18] MEDS: CEFTRIAXONE 1,000 MG in DEXTROSE 5% 50 ML IV SCH (21:20)
[2017-05-18] MEDS: GUAIFENESIN ER 600 MG TABLET PO SCH (21:20)
[2017-05-18] MEDS: KETOROLAC 30 MG/1 ML IVPush PRN (21:26)
[2017-05-18] MEDS: NICOTINE 14MG/24 HR PATCH.TD24 TD SCH (21:26)
[2017-05-19 01:13] VITALS: BP 156/87
[2017-05-19] MEDS: IPRATROPIUM 0.5 MG/2.5 ML INHA HHN SCH ×4 (03:00→20:34)
[2017-05-19] MEDS: HEPARIN 5,000 UNITS/ML, 1ML SQ SCH ×3 (04:55→23:42)
[2017-05-19] MEDS: methylPREDNISolone SOD SUCC 125 MG/2 ML IVPush SCH ×4 (04:55→23:42)
[2017-05-19] MEDS: KETOROLAC 30 MG/1 ML IVPush PRN ×3 (04:55→20:41)
[2017-05-19 05:33] LABS: ANION GAP 7 mmol/L (5-15); CALCIUM 8.3 mg/dL (8.5-10.1); CHLORIDE 99 mmol/L (98-107)
[2017-05-19 05:34] LABS: CREATININE 0.83 mg/dL (0.55-1.02)
[2017-05-19 05:57] LABS: BASOPHILS % (AUTO) 0 % (0-1); EOSINOPHILS % (AUTO) 0 % (1-7); LYMPHOCYTES # (AUTO) 0.86 x10^3/uL (1-3.4); LYMPHOCYTES % (AUTO) 6 % (22-44); MD NO; MEAN CORPUSCULAR HEMOGLOBIN 33.1 pg (27.0-34.8); MEAN CORPUSCULAR VOLUME 97.3 fL (80-100); MEAN PLATELET VOLUME 8.4 fL (7.4-10.4); MONOCYTES # (AUTO) 0.34 x10^3/uL (0.2-0.8); MONOCYTES % (AUTO) 2 % (2-9); NEUTROPHILS # (AUTO) 14.05 x10^3/uL (1.8-6.8); NEUTROPHILS % (AUTO) 92 % (42-75); PLATELET COUNT 218 x10^3/uL (130-400); RED BLOOD COUNT 4.16 x10^6/uL (3.82-5.3); RED CELL DISTRIBUTION WIDTH 13.4 % (9.6-15.2)
[2017-05-19 06:40] VITALS: BP 143/84
[2017-05-19] MEDS: ALBUTEROL/IPRATROPIUM 2.5MG/0.5MG, 3 ML NPPB SCH ×4 (07:25→18:58)
[2017-05-19] MEDS: SENNA/DOCUSATE TABLET PO SCH (07:53)
[2017-05-19] MEDS: GUAIFENESIN ER 600 MG TABLET PO SCH ×2 (08:03→20:33)
[2017-05-19] MEDS: DOXYCYCLINE 100MG TABLET PO SCH ×2 (08:03→20:33)
[2017-05-19] MEDS: LOSARTAN 50MG TABLET PO SCH (08:03)
[2017-05-19] MEDS: ACETAMINOPHEN 325 MG TABLET PO PRN ×2 (08:03→15:05)
[2017-05-19] MEDS: INSULIN LISPRO 100 UNITS/ML, PEN SQ-INSULIN SCH ×4 (08:04→20:34)
[2017-05-19] MEDS: ONDANSETRON 2MG/ML, 2ML IVPush PRN ×2 (11:31→18:38)
[2017-05-19 12:55] VITALS: BP 147/75
[2017-05-19] MEDS: CALCIUM CARBONATE 500 MG TAB.CHEW PO PRN (19:44)
[2017-05-19 19:53] VITALS: BP 139/81
[2017-05-19] MEDS: NICOTINE 14MG/24 HR PATCH.TD24 TD SCH (20:34)
[2017-05-19] MEDS: CEFTRIAXONE 1,000 MG in DEXTROSE 5% 50 ML IV SCH (22:05)
[2017-05-19] MEDS: FLUTICASONE/VILANTEROL 200-25MCG/INH INH SCH (22:05)
[2017-05-20] VITALS (7 sets, daily range): BP systolic 143–180; BP diastolic 84–109
[2017-05-20] MEDS: ACETAMINOPHEN 325 MG TABLET PO PRN ×2 (03:02→20:32)
[2017-05-20] MEDS: methylPREDNISolone SOD SUCC 125 MG/2 ML IVPush SCH ×4 (05:11→23:13)
[2017-05-20 05:35] LABS: BASOPHILS % (AUTO) 0 % (0-1); EOSINOPHILS % (AUTO) 0 % (1-7); LYMPHOCYTES # (AUTO) 0.71 x10^3/uL (1-3.4); LYMPHOCYTES % (AUTO) 5 % (22-44); MD NO; MEAN CORPUSCULAR HEMOGLOBIN 32.9 pg (27.0-34.8); MEAN CORPUSCULAR HGB CONC 33.1 g/dL (32.4-35.8); MEAN CORPUSCULAR VOLUME 99.3 fL (80-100); MEAN PLATELET VOLUME 8.4 fL (7.4-10.4); MONOCYTES # (AUTO) 0.36 x10^3/uL (0.2-0.8); MONOCYTES % (AUTO) 2 % (2-9); NEUTROPHILS # (AUTO) 14.66 x10^3/uL (1.8-6.8); NEUTROPHILS % (AUTO) 93 % (42-75); PLATELET COUNT 209 x10^3/uL (130-400); RED BLOOD COUNT 4.12 x10^6/uL (3.82-5.3)
[2017-05-20 05:47] LABS: ANION GAP 5 mmol/L (5-15); CALCIUM 8.7 mg/dL (8.5-10.1); CHLORIDE 99 mmol/L (98-107)
[2017-05-20] MEDS: ALBUTEROL/IPRATROPIUM 2.5MG/0.5MG, 3 ML NPPB SCH ×4 (07:00→19:00)
[2017-05-20] MEDS: SENNA/DOCUSATE TABLET PO SCH (07:48)
[2017-05-20] MEDS: HEPARIN 5,000 UNITS/ML, 1ML SQ SCH ×3 (08:01→23:13)
[2017-05-20] MEDS: GUAIFENESIN ER 600 MG TABLET PO SCH ×2 (08:01→20:32)
[2017-05-20] MEDS: DOXYCYCLINE 100MG TABLET PO SCH ×2 (08:01→20:31)
[2017-05-20] MEDS: CALCIUM CARBONATE 500 MG TAB.CHEW PO PRN ×2 (08:01→20:11)
[2017-05-20] MEDS: LOSARTAN 50MG TABLET PO SCH (08:01)
[2017-05-20] MEDS: KETOROLAC 30 MG/1 ML IVPush PRN ×3 (08:02→21:38)
[2017-05-20] MEDS: INSULIN LISPRO 100 UNITS/ML, PEN SQ-INSULIN SCH ×4 (08:02→20:32)
[2017-05-20] MEDS: ONDANSETRON 2MG/ML, 2ML IVPush PRN ×2 (11:01→20:10)
[2017-05-20] MEDS ORDERED: OMNIPAQUE 350 MG/ML, 100ML BOTTLE ONE (11:41)
[2017-05-20] MEDS: ENALAPRILAT 1.25 MG/ML, 2ML IVPush PRN (14:01)
[2017-05-20] MEDS ORDERED: MAALOX/HYOSCYAMINE/LIDOCAINE 45 ML BTL PO ONE ×2 (14:30→23:00)
[2017-05-20] MEDS: NICOTINE 14MG/24 HR PATCH.TD24 TD SCH (20:36)
[2017-05-20] MEDS: FLUTICASONE/VILANTEROL 200-25MCG/INH INH SCH (21:38)
[2017-05-20] MEDS: CEFTRIAXONE 1,000 MG in DEXTROSE 5% 50 ML IV SCH (21:38)
[2017-05-20] MEDS: FAMOTIDINE 20 MG TABLET PO SCH (23:13)
[2017-05-21 00:56] VITALS: BP_SYST 164; BP_SYST 171; BP_DIAS 107; BP_DIAS 82
[2017-05-21] MEDS: KETOROLAC 30 MG/1 ML IVPush PRN ×3 (04:08→22:04)
[2017-05-21] MEDS: methylPREDNISolone SOD SUCC 125 MG/2 ML IVPush SCH ×4 (06:01→22:05)
[2017-05-21] MEDS: HEPARIN 5,000 UNITS/ML, 1ML SQ SCH ×2 (06:13→16:38)
[2017-05-21] MEDS: ALBUTEROL/IPRATROPIUM 2.5MG/0.5MG, 3 ML NPPB SCH ×4 (07:20→20:00)
[2017-05-21 07:53] VITALS: BP 126/76
[2017-05-21] MEDS: DOXYCYCLINE 100MG TABLET PO SCH ×2 (07:59→20:27)
[2017-05-21] MEDS: FAMOTIDINE 20 MG TABLET PO SCH ×2 (07:59→20:28)
[2017-05-21] MEDS: GUAIFENESIN ER 600 MG TABLET PO SCH ×2 (07:59→20:27)
[2017-05-21] MEDS: LOSARTAN 50MG TABLET PO SCH (08:00)
[2017-05-21] MEDS: INSULIN LISPRO 100 UNITS/ML, PEN SQ-INSULIN SCH ×4 (08:02→20:28)
[2017-05-21] MEDS: SENNA/DOCUSATE TABLET PO SCH (08:02)
[2017-05-21] MEDS: NICOTINE 14MG/24 HR PATCH.TD24 TD SCH (12:32)
[2017-05-21 13:06] VITALS: BP 172/90
[2017-05-21 19:29] VITALS: BP 189/110
[2017-05-21 20:27] VITALS: BP 169/96
[2017-05-21] MEDS: MONTELUKAST 10 MG TABLET PO SCH (20:27)
[2017-05-21] MEDS: DIPHENHYDRAMINE 25 MG CAPSULE PO PRN (20:27)
[2017-05-21] MEDS: CEFTRIAXONE 1,000 MG in DEXTROSE 5% 50 ML IV SCH (22:04)
[2017-05-21] MEDS: FLUTICASONE/VILANTEROL 200-25MCG/INH INH SCH (22:04)
[2017-05-22] VITALS (8 sets, daily range): BP systolic 150–183; BP diastolic 79–114
[2017-05-22] MEDS: HEPARIN 5,000 UNITS/ML, 1ML SQ SCH ×3 (00:35→17:03)
[2017-05-22] MEDS: hydrALAzine 20 MG/ML, 1ML IVPush PRN ×2 (00:37→22:11)
[2017-05-22] MEDS: ENALAPRILAT 1.25 MG/ML, 2ML IVPush PRN ×2 (01:42→19:59)
[2017-05-22] MEDS: methylPREDNISolone SOD SUCC 125 MG/2 ML IVPush SCH ×2 (05:07→13:05)
[2017-05-22] MEDS: KETOROLAC 30 MG/1 ML IVPush PRN ×3 (05:07→18:21)
[2017-05-22 05:44] LABS: BASOPHILS % (AUTO) 0 % (0-1); EOSINOPHILS % (AUTO) 0 % (1-7); LYMPHOCYTES # (AUTO) 0.74 x10^3/uL (1-3.4); LYMPHOCYTES % (AUTO) 6 % (22-44); MD NO; MEAN CORPUSCULAR HEMOGLOBIN 33.2 pg (27.0-34.8); MEAN CORPUSCULAR HGB CONC 33.9 g/dL (32.4-35.8); MEAN CORPUSCULAR VOLUME 97.7 fL (80-100); MEAN PLATELET VOLUME 8.1 fL (7.4-10.4); MONOCYTES # (AUTO) 0.38 x10^3/uL (0.2-0.8); MONOCYTES % (AUTO) 3 % (2-9); NEUTROPHILS # (AUTO) 10.97 x10^3/uL (1.8-6.8); NEUTROPHILS % (AUTO) 91 % (42-75); PLATELET COUNT 204 x10^3/uL (130-400); RED BLOOD COUNT 4.13 x10^6/uL (3.82-5.3); RED CELL DISTRIBUTION WIDTH 13.3 % (9.6-15.2)
[2017-05-22 05:56] LABS: CHLORIDE 95 mmol/L (98-107)
[2017-05-22 06:00] LABS: ANION GAP 4 mmol/L (5-15); CALCIUM 8.7 mg/dL (8.5-10.1); CREATININE 0.79 mg/dL (0.55-1.02)
[2017-05-22] MEDS: ALBUTEROL/IPRATROPIUM 2.5MG/0.5MG, 3 ML NPPB SCH ×4 (07:00→20:00)
[2017-05-22] MEDS: INSULIN LISPRO 100 UNITS/ML, PEN SQ-INSULIN SCH ×4 (08:37→20:54)
[2017-05-22] MEDS: SENNA/DOCUSATE TABLET PO SCH (08:38)
[2017-05-22] MEDS: LOSARTAN 50MG TABLET PO SCH (08:39)
[2017-05-22] MEDS: FAMOTIDINE 20 MG TABLET PO SCH ×2 (08:39→20:54)
[2017-05-22] MEDS: GUAIFENESIN ER 600 MG TABLET PO SCH ×2 (08:39→20:53)
[2017-05-22] MEDS: DOXYCYCLINE 100MG TABLET PO SCH ×2 (08:39→20:54)
[2017-05-22] MEDS: DIPHENHYDRAMINE 25 MG CAPSULE PO PRN ×2 (08:54→22:16)
[2017-05-22] MEDS: NICOTINE 14MG/24 HR PATCH.TD24 TD SCH (13:05)
[2017-05-22] MEDS: ACETAMINOPHEN 325 MG TABLET PO PRN ×2 (17:13→23:21)
[2017-05-22] MEDS: MONTELUKAST 10 MG TABLET PO SCH (20:54)
[2017-05-22] MEDS ORDERED: CEFTRIAXONE PMX 1GM/50ML 50 ML IV SCH (22:00)
[2017-05-22] MEDS: FLUTICASONE/VILANTEROL 200-25MCG/INH INH SCH (22:11)
[2017-05-23] MEDS: HEPARIN 5,000 UNITS/ML, 1ML SQ SCH ×3 (00:18→16:31)
[2017-05-23 01:05] VITALS: BP 197/118
[2017-05-23] MEDS: ENALAPRILAT 1.25 MG/ML, 2ML IVPush PRN (01:19)
[2017-05-23] MEDS: KETOROLAC 30 MG/1 ML IVPush PRN ×2 (01:22→09:06)
[2017-05-23 03:30] VITALS: BP 154/96
[2017-05-23 07:35] VITALS: BP 152/93
[2017-05-23] MEDS: ALBUTEROL/IPRATROPIUM 2.5MG/0.5MG, 3 ML NPPB SCH ×3 (08:04→15:15)
[2017-05-23] MEDS: INSULIN LISPRO 100 UNITS/ML, PEN SQ-INSULIN SCH ×3 (08:20→16:31)
[2017-05-23] MEDS: SENNA/DOCUSATE TABLET PO SCH (08:21)
[2017-05-23] MEDS: FAMOTIDINE 20 MG TABLET PO SCH (08:21)
[2017-05-23] MEDS: GUAIFENESIN ER 600 MG TABLET PO SCH (08:21)
[2017-05-23] MEDS: DOXYCYCLINE 100MG TABLET PO SCH (08:21)
[2017-05-23] MEDS: LOSARTAN 50MG TABLET PO SCH (08:21)
[2017-05-23] MEDS ORDERED: PRED20TA PO ×2 (13:04→13:05)
[2017-05-23] MEDS ORDERED: NICO-486 TD (13:11)
[2017-05-23 13:35] VITALS: BP 159/89
[2017-05-23] MEDS: NICOTINE 14MG/24 HR PATCH.TD24 TD SCH (13:47)
== END 2017-05-23 17:47 | disposition home or self-care (01) | DRG 189 ==
LOC: ED 19:10 → EDIP 20:11 → 4EST 22:26
PROVIDERS: ADMIT Internal Medicine; ATTEND Internal Medicine
DX: J96.01 Acute respiratory failure with hypoxia (principal); E11.65 Type 2 diabetes mellitus with hyperglycemia; J44.1 Chronic obstructive pulmonary disease with (acute) exacerbation; J98.11 Atelectasis; D72.829 Elevated white blood cell count, unspecified; F10.10 Alcohol abuse, uncomplicated; F15.10 Other stimulant abuse, uncomplicated; I10 Essential (primary) hypertension; M54.30 Sciatica, unspecified side; R00.0 Tachycardia, unspecified; M85.80 Other specified disorders of bone density and structure, unspecified site; T38.0X5A Adverse effect of glucocorticoids and synthetic analogues, initial encounter; Z72.0 Tobacco use; Z86.14 Personal history of Methicillin resistant Staphylococcus aureus infection; Z90.710 Acquired absence of both cervix and uterus; Z91.14 Patient's other noncompliance with medication regimen; Z91.19 Patient's noncompliance with other medical treatment and regimen
CPT/HCPCS: 36415; 36600; 71045; 71275; 80048; 80053; 80061; 81003; 82040; 82803; 82962; 83036; 83605; 83735; 84439; 84443; 84484; 85025; 87040; 87070; 87205; 93005; 94640; 96374; 96375; 96376; C8929; J0696; J1644; J1885; J2405; J3370; J7613; J7620; Q9967; J0360; J1200; J1815; J2930; J7030; J7040; J7512; Q0163

== ENCOUNTER 2017-06-04 05:12 | Inpatient (IN) | payer MEDICAID ==
[~2017-06-04] VITALS: Ht 170.2 cm; Wt 115.0 kg
[~2017-06-04 05:12] MED LIST changes: +NICO-486 TD; +PRED20TA PO
[2017-06-04] MEDS ORDERED: ALBUTEROL/IPRATROPIUM 2.5MG/0.5MG, 3 ML NPPB ONE (05:30)
[2017-06-04] MEDS ORDERED: methylPREDNISolone SOD SUCC 125 MG/2 ML IVP ONE (05:30)
[2017-06-04] MEDS ORDERED: SODIUM CHLORIDE FLUSH 10ML SYR IVF ONE (05:30)
[2017-06-04] MEDS ORDERED: ALBUTEROL/IPRATROPIUM 2.5MG/0.5MG, 3 ML ONE (05:36)
[2017-06-04] MEDS ORDERED: methylPREDNISolone SOD SUCC 125 MG/2 ML ONE (05:39)
[2017-06-04 06:07] LABS: BASOPHILS # (AUTO) 0.04 x10^3/uL (0-0.1); BASOPHILS % (AUTO) 0 % (0-1); EOSINOPHILS # (AUTO) 0.08 x10^3/uL (0-0.4); EOSINOPHILS % (AUTO) 1 % (1-7); LYMPHOCYTES # (AUTO) 1.48 x10^3/uL (1-3.4); LYMPHOCYTES % (AUTO) 16 % (22-44); MD NO; MEAN CORPUSCULAR HEMOGLOBIN 33.3 pg (27.0-34.8); MEAN CORPUSCULAR HGB CONC 34.2 g/dL (32.4-35.8); MEAN CORPUSCULAR VOLUME 97.6 fL (80-100); MEAN PLATELET VOLUME 7.4 fL (7.4-10.4); MONOCYTES # (AUTO) 0.54 x10^3/uL (0.2-0.8); MONOCYTES % (AUTO) 6 % (2-9); NEUTROPHILS # (AUTO) 7.04 x10^3/uL (1.8-6.8); NEUTROPHILS % (AUTO) 77 % (42-75); PLATELET COUNT 193 x10^3/uL (130-400); RED BLOOD COUNT 3.76 x10^6/uL (3.82-5.3); RED CELL DISTRIBUTION WIDTH 13.6 % (9.6-15.2)
[2017-06-04 06:14] LABS: INTERNATIONAL NORMALIZED RATIO 0.93 (0.93-1.1); PROTHROMBIN TIME 9.6 Seconds (9.6-11.5)
[2017-06-04 06:21] LABS: ALBUMIN 3.5 g/dL (3.4-5.0); ANION GAP 9 mmol/L (5-15); CALCIUM 8.2 mg/dL (8.5-10.1); CHLORIDE 97 mmol/L (98-107)
[2017-06-04 06:26] LABS: ALANINE AMINOTRANSFERASE 29 U/L (12-78); ALKALINE PHOSPHATASE 75 U/L (45-117); BILIRUBIN,TOTAL 0.4 mg/dL (0.2-1.0); CREATININE 0.65 mg/dL (0.55-1.02); TOTAL PROTEIN 7.1 g/dL (6.4-8.2); TROPONIN I < 0.015 ng/mL (0.000-0.045)
[2017-06-04] MEDS ORDERED: MAGNESIUM SULFATE 1 GM in SODIUM CHLORIDE 0.9% 50 ML IV ONE (07:30)
[2017-06-04] MEDS ORDERED: hydrALAzine 20 MG/ML, 1ML ONE (07:47)
[2017-06-04] MEDS ORDERED: hydrALAzine 20 MG/ML, 1ML IV ONE (08:00)
[2017-06-04 08:11] VITALS: BP 179/96
[2017-06-04] MEDS ORDERED: CEFTRIAXONE 2 GM in DEXTROSE 5% 50 ML IVPB SCH (11:00)
[2017-06-04] MEDS ORDERED: GLIMEPIRIDE 4 MG TABLET PO SCH (11:00)
[2017-06-04] MEDS ORDERED: INSULIN LISPRO 100 UNITS/ML, PEN SQ-INSULIN SCH (11:00)
[2017-06-04] MEDS ORDERED: methylPREDNISolone SOD SUCC 125 MG/2 ML IVPush SCH (11:00)
[2017-06-04] MEDS ORDERED: morphine SULFATE 10 MG/ML, 1ML IVPush PRN (11:00)
[2017-06-04] MEDS ORDERED: HYDROcodone/APAP 5/325 TABLET PO PRN (11:00)
[2017-06-04] MEDS ORDERED: DOXYCYCLINE 100MG TABLET PO SCH (11:00)
[2017-06-04] MEDS ORDERED: DILTIAZEM 60 MG TABLET PO SCH (11:00)
[2017-06-04] MEDS ORDERED: hydrALAzine 20 MG/ML, 1ML IVPush PRN (11:00)
[2017-06-04] MEDS ORDERED: NICOTINE 21 MG/24 HR PATCH.TD24 TD SCH (11:00)
[2017-06-04] MEDS ORDERED: ONDANSETRON 2MG/ML, 2ML IVPush PRN (11:00)
[2017-06-04] MEDS ORDERED: ENOXAPARIN 40 MG/0.4 ML SQ SCH (11:00)
[2017-06-04] MEDS ORDERED: ONDANSETRON ODT 4 MG PO PRN (11:00)
[2017-06-04] MEDS ORDERED: ACETAMINOPHEN 325 MG TABLET PO PRN (11:00)
[2017-06-04] MEDS ORDERED: DILTIAZEM 120 MG TABLET ONE (11:01)
[2017-06-04 12:33] LABS: HEMOGLOBIN A1C 6.8 % (4.2-6.3)
== END 2017-06-04 12:25 | disposition left against medical advice (07) | DRG 189 ==
LOC: ED 05:54 → EDIP 07:14 → 3NW 08:23
PROVIDERS: ADMIT Hospitalist; ATTEND Internal Medicine
DX: J96.21 Acute and chronic respiratory failure with hypoxia (principal); E11.65 Type 2 diabetes mellitus with hyperglycemia; E87.8 Other disorders of electrolyte and fluid balance, not elsewhere classified; E87.2 Acidosis; E87.1 Hypo-osmolality and hyponatremia; J44.1 Chronic obstructive pulmonary disease with (acute) exacerbation; E66.01 Morbid (severe) obesity due to excess calories; F17.210 Nicotine dependence, cigarettes, uncomplicated; I11.9 Hypertensive heart disease without heart failure; I16.0 Hypertensive urgency; I51.7 Cardiomegaly; I71.4 Abdominal aortic aneurysm, without rupture; Z80.0 Family history of malignant neoplasm of digestive organs; Z80.3 Family history of malignant neoplasm of breast; Z86.14 Personal history of Methicillin resistant Staphylococcus aureus infection; Z91.14 Patient's other noncompliance with medication regimen; Z90.710 Acquired absence of both cervix and uterus; Z72.89 Other problems related to lifestyle; Z53.21 Procedure and treatment not carried out due to patient leaving prior to being seen by health care provider; Z68.32 Body mass index [BMI] 32.0-32.9, adult
CPT/HCPCS: 36415; 36600; 71045; 80053; 82803; 83036; 83605; 83880; 84484; 85025; 85610; 87040; 93005; 94640; 96374; 96375; J0696; J3475; J7620; J0360; J2930

== ENCOUNTER 2017-06-10 16:19 | Inpatient (IN) | payer MEDICAID ==
[~2017-06-10] VITALS: Ht 170.2 cm; Wt 120.7 kg
[2017-06-10] MEDS ORDERED: methylPREDNISolone SOD SUCC 125 MG/2 ML IVP ONE (16:30)
[2017-06-10] MEDS ORDERED: SODIUM CHLORIDE FLUSH 10ML SYR IVF ONE (16:30)
[2017-06-10] MEDS ORDERED: ALBUTEROL/IPRATROPIUM 2.5MG/0.5MG, 3 ML ONE (16:53)
[2017-06-10 16:54] LABS: BASOPHILS # (AUTO) 0.02 x10^3/uL (0-0.1); BASOPHILS % (AUTO) 0 % (0-1); EOSINOPHILS # (AUTO) 0.22 x10^3/uL (0-0.4); EOSINOPHILS % (AUTO) 4 % (1-7); LYMPHOCYTES # (AUTO) 1.43 x10^3/uL (1-3.4); LYMPHOCYTES % (AUTO) 23 % (22-44); MD NO; MEAN CORPUSCULAR HEMOGLOBIN 34.1 pg (27.0-34.8); MEAN CORPUSCULAR HGB CONC 34.4 g/dL (32.4-35.8); MEAN CORPUSCULAR VOLUME 99.2 fL (80-100); MEAN PLATELET VOLUME 7.3 fL (7.4-10.4); MONOCYTES # (AUTO) 0.56 x10^3/uL (0.2-0.8); MONOCYTES % (AUTO) 9 % (2-9); NEUTROPHILS # (AUTO) 4.03 x10^3/uL (1.8-6.8); NEUTROPHILS % (AUTO) 64 % (42-75); PLATELET COUNT 183 x10^3/uL (130-400); RED CELL DISTRIBUTION WIDTH 15.4 % (9.6-15.2)
[2017-06-10 16:59] LABS: INTERNATIONAL NORMALIZED RATIO 0.92 (0.93-1.1); PROTHROMBIN TIME 9.5 Seconds (9.6-11.5)
[2017-06-10 17:03] LABS: ALANINE AMINOTRANSFERASE 34 U/L (12-78); ALBUMIN 3.5 g/dL (3.4-5.0); ANION GAP 8 mmol/L (5-15); CHLORIDE 97 mmol/L (98-107); CREATININE 0.67 mg/dL (0.55-1.02)
[2017-06-10 17:07] LABS: ALKALINE PHOSPHATASE 81 U/L (45-117); BILIRUBIN,TOTAL 0.2 mg/dL (0.2-1.0); TROPONIN I < 0.015 ng/mL (0.000-0.045)
[2017-06-10] MEDS ORDERED: methylPREDNISolone SOD SUCC 125 MG/2 ML ONE (18:11)
[2017-06-10] MEDS ORDERED: BISACODYL 10 MG SUPP PR PRN (19:00)
[2017-06-10] MEDS ORDERED: hydrALAzine 20 MG/ML, 1ML IVPush PRN (19:00)
[2017-06-10] MEDS ORDERED: POLYETHYLENE GLYCOL 17 GM PACKET PO PRN (19:00)
[2017-06-10] MEDS ORDERED: GUAIFENESIN/DM 200-20MG, 10ML UDC PO PRN (19:00)
[2017-06-10] MEDS ORDERED: ALBUTEROL/IPRATROPIUM 2.5MG/0.5MG, 3 ML NPPB SCH (20:00)
[2017-06-10] MEDS: DOXYCYCLINE 100 MG in DEXTROSE 5% 250 ML IV SCH (20:25)
[2017-06-10] MEDS: SODIUM CHLORIDE 0.9% 1,000 ML IV SCH (20:25)
[2017-06-10] MEDS: methylPREDNISolone SOD SUCC 125 MG/2 ML IVPush SCH (20:25)
[2017-06-10] MEDS: NICOTINE 21 MG/24 HR PATCH.TD24 TD SCH (20:25)
[2017-06-10] MEDS: HEPARIN 5,000 UNITS/ML, 1ML SQ SCH (20:26)
[2017-06-10] MEDS: IPRATROPIUM 0.5 MG/2.5 ML INHA HHN SCH (21:00)
[2017-06-11] MEDS ORDERED: LABETALOL 5MG/ML, 20ML ONE (01:15)
[2017-06-11] MEDS ORDERED: LABETALOL 5MG/ML, 20ML IVPush ONE (01:30)
[2017-06-11] MEDS ORDERED: LABETALOL 5MG/ML, 20ML IVPush SCH (01:30)
[2017-06-11] MEDS: LABETALOL 5MG/ML, 20ML IVPush PRN ×3 (02:35→15:19)
[2017-06-11] MEDS: methylPREDNISolone SOD SUCC 125 MG/2 ML IVPush SCH ×4 (02:35→20:12)
[2017-06-11 04:18] VITALS: BP 176/89
[2017-06-11 04:27] LABS: FIO2 57.2 %
[2017-06-11] MEDS: HEPARIN 5,000 UNITS/ML, 1ML SQ SCH ×3 (04:29→20:12)
[2017-06-11 04:30] LABS: BASOPHILS % (AUTO) 0 % (0-1); EOSINOPHILS % (AUTO) 0 % (1-7); LYMPHOCYTES # (AUTO) 0.41 x10^3/uL (1-3.4); LYMPHOCYTES % (AUTO) 8 % (22-44); MD NO; MEAN CORPUSCULAR HEMOGLOBIN 32.9 pg (27.0-34.8); MEAN CORPUSCULAR VOLUME 99.6 fL (80-100); MEAN PLATELET VOLUME 7.5 fL (7.4-10.4); MONOCYTES # (AUTO) 0.03 x10^3/uL (0.2-0.8); MONOCYTES % (AUTO) 1 % (2-9); NEUTROPHILS # (AUTO) 4.69 x10^3/uL (1.8-6.8); NEUTROPHILS % (AUTO) 92 % (42-75); PLATELET COUNT 180 x10^3/uL (130-400); RED BLOOD COUNT 4.07 x10^6/uL (3.82-5.3); RED CELL DISTRIBUTION WIDTH 16.3 % (9.6-15.2)
[2017-06-11 04:42] LABS: CHLORIDE 101 mmol/L (98-107)
[2017-06-11 04:49] LABS: ALANINE AMINOTRANSFERASE 34 U/L (12-78); ALBUMIN 3.6 g/dL (3.4-5.0); ALKALINE PHOSPHATASE 81 U/L (45-117); ANION GAP 7 mmol/L (5-15); BILIRUBIN,TOTAL 0.5 mg/dL (0.2-1.0); CALCIUM 8.6 mg/dL (8.5-10.1); CREATININE 0.71 mg/dL (0.55-1.02); TOTAL PROTEIN 7.4 g/dL (6.4-8.2)
[2017-06-11] MEDS ORDERED: FUROSEMIDE 20 MG/2 ML IV ONE (06:00)
[2017-06-11] MEDS: IPRATROPIUM 0.5 MG/2.5 ML INHA HHN SCH ×4 (06:37→20:39)
[2017-06-11] MEDS: SENNA/DOCUSATE TABLET PO SCH (07:16)
[2017-06-11] MEDS: FLUTICASONE/VILANTEROL 100-25MCG/INH INH SCH (09:00)
[2017-06-11] MEDS: SODIUM CHLORIDE 0.9% 1,000 ML IV SCH ×2 (09:12→22:49)
[2017-06-11] MEDS: THIAMINE 100MG TABLET PO SCH (09:12)
[2017-06-11] MEDS: FOLIC ACID 1 MG TABLET PO SCH (09:12)
[2017-06-11 10:21] LABS: AMPHETAMINE SCREEN, URINE Negative (Negative); BARBITURATE SCREEN, URINE Negative (Negative); BENZODIAZEPINE SCREEN, URINE Negative (Negative); CANNABINOID SCREEN, URINE Negative (Negative); COCAINE SCREEN, URINE Negative (Negative); METHADONE SCREEN, URINE Negative (Negative); OPIATE SCREEN, URINE Negative (Negative)
[2017-06-11] MEDS: DOXYCYCLINE 100 MG in DEXTROSE 5% 250 ML IV SCH ×2 (10:36→20:12)
[2017-06-11 12:55] LABS: MICROSCOPIC NOT IND
[2017-06-11 12:59] LABS: CULTURE INDICATED? NO
[2017-06-11] MEDS: hydrALAzine 20 MG/ML, 1ML IVPush PRN (18:13)
[2017-06-11] MEDS: NICOTINE 21 MG/24 HR PATCH.TD24 TD SCH (19:19)
[2017-06-11] MEDS: ACETAMINOPHEN 325 MG TABLET PO PRN (19:20)
[2017-06-11] MEDS: HYDROcodone/APAP 5/325 TABLET PO PRN (20:12)
[2017-06-11] MEDS ORDERED: ENOXAPARIN 120MG/0.8ML SQ SCH (21:00)
[2017-06-12] MEDS: ONDANSETRON ODT 4 MG PO PRN (00:52)
[2017-06-12] MEDS: methylPREDNISolone SOD SUCC 125 MG/2 ML IVPush SCH ×4 (02:45→20:48)
[2017-06-12] MEDS: ACETAMINOPHEN 325 MG TABLET PO PRN ×3 (02:45→23:08)
[2017-06-12 04:03] VITALS: BP 159/93
[2017-06-12 04:29] LABS: BASOPHILS # (AUTO) 0.01 x10^3/uL (0-0.1); BASOPHILS % (AUTO) 0 % (0-1); EOSINOPHILS % (AUTO) 0 % (1-7); LYMPHOCYTES # (AUTO) 0.44 x10^3/uL (1-3.4); LYMPHOCYTES % (AUTO) 3 % (22-44); MD NO; MEAN CORPUSCULAR HEMOGLOBIN 33.1 pg (27.0-34.8); MEAN CORPUSCULAR HGB CONC 33.1 g/dL (32.4-35.8); MEAN CORPUSCULAR VOLUME 99.9 fL (80-100); MEAN PLATELET VOLUME 7.6 fL (7.4-10.4); MONOCYTES # (AUTO) 0.36 x10^3/uL (0.2-0.8); MONOCYTES % (AUTO) 3 % (2-9); NEUTROPHILS # (AUTO) 12.03 x10^3/uL (1.8-6.8); NEUTROPHILS % (AUTO) 94 % (42-75); PLATELET COUNT 214 x10^3/uL (130-400); RED BLOOD COUNT 3.87 x10^6/uL (3.82-5.3); RED CELL DISTRIBUTION WIDTH 16.3 % (9.6-15.2)
[2017-06-12 04:41] LABS: ALBUMIN 3.3 g/dL (3.4-5.0); ANION GAP 6 mmol/L (5-15); CALCIUM 8.1 mg/dL (8.5-10.1); CHLORIDE 100 mmol/L (98-107)
[2017-06-12 04:44] LABS: ALANINE AMINOTRANSFERASE 28 U/L (12-78); ALKALINE PHOSPHATASE 69 U/L (45-117); BILIRUBIN,TOTAL 0.4 mg/dL (0.2-1.0); CREATININE 0.72 mg/dL (0.55-1.02); TOTAL PROTEIN 6.9 g/dL (6.4-8.2)
[2017-06-12] MEDS: HYDROcodone/APAP 5/325 TABLET PO PRN (06:26)
[2017-06-12] MEDS: IPRATROPIUM 0.5 MG/2.5 ML INHA HHN SCH ×3 (06:45→21:00)
[2017-06-12] MEDS: DOXYCYCLINE 100 MG in DEXTROSE 5% 250 ML IV SCH ×2 (08:02→20:48)
[2017-06-12] MEDS: SENNA/DOCUSATE TABLET PO SCH (09:00)
[2017-06-12] MEDS: FLUTICASONE/VILANTEROL 100-25MCG/INH INH SCH (09:00)
[2017-06-12] MEDS: FOLIC ACID 1 MG TABLET PO SCH (09:12)
[2017-06-12] MEDS: THIAMINE 100MG TABLET PO SCH (09:12)
[2017-06-12] MEDS: hydrALAzine 20 MG/ML, 1ML IVPush PRN ×2 (15:48→20:48)
[2017-06-12] MEDS: CHLORDIAZEPOXIDE 25 MG CAPSULE PO PRN (17:43)
[2017-06-12] MEDS: ENOXAPARIN 40 MG/0.4 ML SQ SCH (21:00)
[2017-06-12] MEDS: NICOTINE 21 MG/24 HR PATCH.TD24 TD SCH (22:51)
[2017-06-13] MEDS: IPRATROPIUM 0.5 MG/2.5 ML INHA HHN SCH ×4 (03:00→21:00)
[2017-06-13] MEDS: methylPREDNISolone SOD SUCC 125 MG/2 ML IVPush SCH (03:22)
[2017-06-13] MEDS: hydrALAzine 20 MG/ML, 1ML IVPush PRN ×4 (03:30→18:32)
[2017-06-13 04:00] VITALS: BP 153/90
[2017-06-13 04:33] LABS: BASOPHILS # (AUTO) 0.01 x10^3/uL (0-0.1); BASOPHILS % (AUTO) 0 % (0-1); EOSINOPHILS % (AUTO) 0 % (1-7); LYMPHOCYTES # (AUTO) 0.67 x10^3/uL (1-3.4); LYMPHOCYTES % (AUTO) 6 % (22-44); MD NO; MEAN CORPUSCULAR HEMOGLOBIN 32.7 pg (27.0-34.8); MEAN CORPUSCULAR HGB CONC 32.7 g/dL (32.4-35.8); MEAN CORPUSCULAR VOLUME 100.3 fL (80-100); MEAN PLATELET VOLUME 7.1 fL (7.4-10.4); MONOCYTES # (AUTO) 0.78 x10^3/uL (0.2-0.8); MONOCYTES % (AUTO) 7 % (2-9); NEUTROPHILS # (AUTO) 9.67 x10^3/uL (1.8-6.8); NEUTROPHILS % (AUTO) 87 % (42-75); PLATELET COUNT 226 x10^3/uL (130-400); RED BLOOD COUNT 3.88 x10^6/uL (3.82-5.3); RED CELL DISTRIBUTION WIDTH 16.4 % (9.6-15.2)
[2017-06-13 04:56] LABS: ALBUMIN 3.3 g/dL (3.4-5.0); ANION GAP 4 mmol/L (5-15); CALCIUM 8.7 mg/dL (8.5-10.1); CHLORIDE 98 mmol/L (98-107)
[2017-06-13 04:59] LABS: ALANINE AMINOTRANSFERASE 23 U/L (12-78); ALKALINE PHOSPHATASE 62 U/L (45-117); BILIRUBIN,TOTAL 0.3 mg/dL (0.2-1.0); TOTAL PROTEIN 6.7 g/dL (6.4-8.2)
[2017-06-13] MEDS: CHLORDIAZEPOXIDE 25 MG CAPSULE PO PRN (07:33)
[2017-06-13] MEDS: THIAMINE 100MG TABLET PO SCH (07:33)
[2017-06-13] MEDS: FOLIC ACID 1 MG TABLET PO SCH (07:33)
[2017-06-13] MEDS: SENNA/DOCUSATE TABLET PO SCH (07:33)
[2017-06-13] MEDS: LORazepam 2 MG/ML, 1ML IVPush PRN (07:34)
[2017-06-13] MEDS: FLUTICASONE/VILANTEROL 100-25MCG/INH INH SCH (09:00)
[2017-06-13] MEDS: DOXYCYCLINE 100 MG in DEXTROSE 5% 250 ML IV SCH ×2 (09:25→21:13)
[2017-06-13] MEDS: PROPRANOLOL 10 MG TABLET PO SCH ×3 (09:25→21:13)
[2017-06-13] MEDS ORDERED: KETOROLAC 30 MG/1 ML ONE (13:56)
[2017-06-13] MEDS: KETOROLAC 30 MG/1 ML IVPush PRN ×2 (13:59→21:13)
[2017-06-13] MEDS ORDERED: FUROSEMIDE 20 MG/2 ML IV ONE (17:00)
[2017-06-13] MEDS: ONDANSETRON ODT 4 MG PO PRN (18:33)
[2017-06-13] MEDS: ENOXAPARIN 40 MG/0.4 ML SQ SCH (21:13)
[2017-06-13] MEDS: DILTIAZEM 60 MG TABLET PO SCH (21:30)
[2017-06-13] MEDS ORDERED: HEPARIN 5,000 UNITS/ML, 1ML IV ONE (22:00)
[2017-06-13] MEDS ORDERED: HEPARIN 25,000 UNITS/500ML PMX 500 ML IV PRN (22:00)
[2017-06-13] MEDS ORDERED: HEPARIN 5,000 UNITS/ML, 1ML IV PRN (22:00)
[2017-06-14] MEDS: NICOTINE 21 MG/24 HR PATCH.TD24 TD SCH ×2 (00:46→23:45)
[2017-06-14] MEDS: hydrALAzine 20 MG/ML, 1ML IVPush PRN (00:46)
[2017-06-14] MEDS: IPRATROPIUM 0.5 MG/2.5 ML INHA HHN SCH ×4 (03:00→21:28)
[2017-06-14] MEDS: DILTIAZEM 60 MG TABLET PO SCH ×4 (03:17→23:45)
[2017-06-14 04:00] VITALS: BP 144/72
[2017-06-14 05:05] LABS: BASOPHILS # (AUTO) 0.04 x10^3/uL (0-0.1); BASOPHILS % (AUTO) 0 % (0-1); EOSINOPHILS # (AUTO) 0.02 x10^3/uL (0-0.4); EOSINOPHILS % (AUTO) 0 % (1-7); LYMPHOCYTES # (AUTO) 1.63 x10^3/uL (1-3.4); LYMPHOCYTES % (AUTO) 15 % (22-44); MD NO; MEAN CORPUSCULAR HEMOGLOBIN 33.5 pg (27.0-34.8); MEAN CORPUSCULAR HGB CONC 33.7 g/dL (32.4-35.8); MEAN CORPUSCULAR VOLUME 99.3 fL (80-100); MEAN PLATELET VOLUME 7.1 fL (7.4-10.4); MONOCYTES # (AUTO) 1.23 x10^3/uL (0.2-0.8); MONOCYTES % (AUTO) 11 % (2-9); NEUTROPHILS # (AUTO) 7.98 x10^3/uL (1.8-6.8); NEUTROPHILS % (AUTO) 73 % (42-75); PLATELET COUNT 227 x10^3/uL (130-400); RED BLOOD COUNT 3.99 x10^6/uL (3.82-5.3); RED CELL DISTRIBUTION WIDTH 16.1 % (9.6-15.2)
[2017-06-14 05:11] LABS: ALANINE AMINOTRANSFERASE 23 U/L (12-78); ALBUMIN 3.2 g/dL (3.4-5.0); ANION GAP 3 mmol/L (5-15); CALCIUM 8.4 mg/dL (8.5-10.1); CHLORIDE 97 mmol/L (98-107); CREATININE 0.62 mg/dL (0.55-1.02)
[2017-06-14 05:13] LABS: ALKALINE PHOSPHATASE 60 U/L (45-117); BILIRUBIN,TOTAL 0.4 mg/dL (0.2-1.0); TOTAL PROTEIN 6.5 g/dL (6.4-8.2)
[2017-06-14] MEDS: ONDANSETRON ODT 4 MG PO PRN ×3 (07:43→21:20)
[2017-06-14] MEDS: DOXYCYCLINE 100 MG in DEXTROSE 5% 250 ML IV SCH ×2 (07:45→21:16)
[2017-06-14] MEDS: KETOROLAC 30 MG/1 ML IVPush PRN ×2 (07:52→21:15)
[2017-06-14] MEDS ORDERED: TAMSULOSIN 0.4 MG CAP.ER.24H PO ONE (08:30)
[2017-06-14] MEDS: SENNA/DOCUSATE TABLET PO SCH (08:32)
[2017-06-14] MEDS: FOLIC ACID 1 MG TABLET PO SCH (08:53)
[2017-06-14] MEDS: THIAMINE 100MG TABLET PO SCH (08:53)
[2017-06-14] MEDS: FLUTICASONE/VILANTEROL 100-25MCG/INH INH SCH (09:00)
[2017-06-14] MEDS ORDERED: ENOXAPARIN 40 MG/0.4 ML SQ SCH (17:00)
[2017-06-14 19:02] VITALS: BP 141/79
[2017-06-15 01:33] VITALS: BP 130/74
[2017-06-15] MEDS: IPRATROPIUM 0.5 MG/2.5 ML INHA HHN SCH ×4 (02:50→21:30)
[2017-06-15] MEDS: DILTIAZEM 60 MG TABLET PO SCH (05:41)
[2017-06-15 05:45] LABS: BASOPHILS # (AUTO) 0.02 x10^3/uL (0-0.1); BASOPHILS % (AUTO) 0 % (0-1); EOSINOPHILS # (AUTO) 0.04 x10^3/uL (0-0.4); EOSINOPHILS % (AUTO) 1 % (1-7); LYMPHOCYTES # (AUTO) 1.15 x10^3/uL (1-3.4); LYMPHOCYTES % (AUTO) 21 % (22-44); MD NO; MEAN CORPUSCULAR HEMOGLOBIN 33.4 pg (27.0-34.8); MEAN CORPUSCULAR HGB CONC 33.7 g/dL (32.4-35.8); MEAN CORPUSCULAR VOLUME 99.1 fL (80-100); MONOCYTES # (AUTO) 0.51 x10^3/uL (0.2-0.8); MONOCYTES % (AUTO) 9 % (2-9); NEUTROPHILS # (AUTO) 3.86 x10^3/uL (1.8-6.8); NEUTROPHILS % (AUTO) 69 % (42-75); PLATELET COUNT 192 x10^3/uL (130-400); RED BLOOD COUNT 3.73 x10^6/uL (3.82-5.3); RED CELL DISTRIBUTION WIDTH 15.1 % (9.6-15.2)
[2017-06-15 05:51] LABS: ALBUMIN 3.1 g/dL (3.4-5.0); ANION GAP 1 mmol/L (5-15); CALCIUM 8.6 mg/dL (8.5-10.1); CHLORIDE 95 mmol/L (98-107)
[2017-06-15 05:54] LABS: ALANINE AMINOTRANSFERASE 26 U/L (12-78); ALKALINE PHOSPHATASE 56 U/L (45-117); BILIRUBIN,TOTAL 0.5 mg/dL (0.2-1.0); CREATININE 0.61 mg/dL (0.55-1.02); TOTAL PROTEIN 6.3 g/dL (6.4-8.2)
[2017-06-15 07:00] VITALS: BP 155/93
[2017-06-15] MEDS: KETOROLAC 30 MG/1 ML IVPush PRN ×2 (08:57→21:30)
[2017-06-15] MEDS: DOXYCYCLINE 100 MG in DEXTROSE 5% 250 ML IV SCH ×2 (09:03→21:28)
[2017-06-15] MEDS: FLUTICASONE/VILANTEROL 100-25MCG/INH INH SCH (09:09)
[2017-06-15] MEDS: THIAMINE 100MG TABLET PO SCH (09:12)
[2017-06-15] MEDS: SENNA/DOCUSATE TABLET PO SCH (09:12)
[2017-06-15] MEDS: ONDANSETRON ODT 4 MG PO PRN ×3 (09:12→23:45)
[2017-06-15] MEDS: FOLIC ACID 1 MG TABLET PO SCH (09:12)
[2017-06-15] MEDS: TAMSULOSIN 0.4 MG CAP.ER.24H PO SCH (09:13)
[2017-06-15 10:49] LABS: HEMOGLOBIN A1C 6.9 % (4.2-6.3)
[2017-06-15] MEDS: INSULIN LISPRO 100 UNITS/ML, PEN SQ-INSULIN SCH ×3 (11:00→21:39)
[2017-06-15] MEDS: SODIUM CHLORIDE 0.9% 1,000 ML IV SCH ×2 (12:41→23:45)
[2017-06-15 14:21] VITALS: BP 173/90
[2017-06-15 17:27] VITALS: BP 148/88
[2017-06-15] MEDS: CARVEDILOL 6.25 MG TABLET PO SCH (17:33)
[2017-06-15 18:55] VITALS: BP 147/89
[2017-06-15] MEDS: ENOXAPARIN 30 MG/0.3 ML SQ SCH (21:00)
[2017-06-15] MEDS: NICOTINE 21 MG/24 HR PATCH.TD24 TD SCH (23:45)
[2017-06-16] VITALS (7 sets, daily range): BP systolic 142–184; BP diastolic 78–101
[2017-06-16] MEDS: IPRATROPIUM 0.5 MG/2.5 ML INHA HHN SCH ×2 (03:00→09:00)
[2017-06-16] MEDS: LABETALOL 5MG/ML, 20ML IVPush PRN (04:33)
[2017-06-16] MEDS: KETOROLAC 30 MG/1 ML IVPush PRN ×3 (05:33→20:38)
[2017-06-16] MEDS: hydrALAzine 20 MG/ML, 1ML IVPush PRN (05:33)
[2017-06-16] MEDS: CARVEDILOL 6.25 MG TABLET PO SCH ×2 (05:33→16:49)
[2017-06-16] MEDS: ONDANSETRON ODT 4 MG PO PRN (05:34)
[2017-06-16] MEDS: INSULIN LISPRO 100 UNITS/ML, PEN SQ-INSULIN SCH ×4 (07:00→20:41)
[2017-06-16] MEDS: DOXYCYCLINE 100 MG in DEXTROSE 5% 250 ML IV SCH ×2 (08:02→20:38)
[2017-06-16] MEDS: TAMSULOSIN 0.4 MG CAP.ER.24H PO SCH (08:06)
[2017-06-16] MEDS: SENNA/DOCUSATE TABLET PO SCH (08:07)
[2017-06-16] MEDS: THIAMINE 100MG TABLET PO SCH (08:07)
[2017-06-16] MEDS: ISOSORBIDE DINITRATE 10 MG TABLET PO SCH ×3 (08:07→20:38)
[2017-06-16] MEDS: metFORMIN 850 MG TABLET PO SCH ×2 (08:07→16:48)
[2017-06-16] MEDS: FOLIC ACID 1 MG TABLET PO SCH (08:07)
[2017-06-16] MEDS: FLUTICASONE/VILANTEROL 100-25MCG/INH INH SCH (08:11)
[2017-06-16] MEDS: ENOXAPARIN 30 MG/0.3 ML SQ SCH ×2 (08:11→20:39)
[2017-06-16] MEDS: SODIUM CHLORIDE 0.9% 1,000 ML IV SCH (20:38)
[2017-06-16] MEDS: NICOTINE 21 MG/24 HR PATCH.TD24 TD SCH (23:57)
[2017-06-17 00:29] VITALS: BP 155/84
[2017-06-17] MEDS: ACETAMINOPHEN 325 MG TABLET PO PRN ×3 (02:53→23:23)
[2017-06-17] MEDS: CARVEDILOL 6.25 MG TABLET PO SCH ×2 (05:51→17:20)
[2017-06-17] MEDS: SODIUM CHLORIDE 0.9% 1,000 ML IV SCH (07:30)
[2017-06-17 07:52] VITALS: BP 145/86
[2017-06-17] MEDS: DOXYCYCLINE 100 MG in DEXTROSE 5% 250 ML IV SCH (08:30)
[2017-06-17] MEDS: ONDANSETRON ODT 4 MG PO PRN ×2 (08:46→15:46)
[2017-06-17] MEDS: FOLIC ACID 1 MG TABLET PO SCH (08:46)
[2017-06-17] MEDS: FLUTICASONE/VILANTEROL 100-25MCG/INH INH SCH (08:46)
[2017-06-17] MEDS: metFORMIN 850 MG TABLET PO SCH ×2 (08:46→15:46)
[2017-06-17] MEDS: SENNA/DOCUSATE TABLET PO SCH (08:47)
[2017-06-17] MEDS: TAMSULOSIN 0.4 MG CAP.ER.24H PO SCH (08:47)
[2017-06-17] MEDS: ISOSORBIDE DINITRATE 10 MG TABLET PO SCH ×3 (08:47→19:54)
[2017-06-17] MEDS: INSULIN LISPRO 100 UNITS/ML, PEN SQ-INSULIN SCH ×4 (08:47→20:18)
[2017-06-17] MEDS: THIAMINE 100MG TABLET PO SCH (08:48)
[2017-06-17] MEDS: ENOXAPARIN 30 MG/0.3 ML SQ SCH ×2 (08:49→19:54)
[2017-06-17 13:03] VITALS: BP 147/82
[2017-06-17 17:19] VITALS: BP 165/95
[2017-06-17 19:04] VITALS: BP 143/85
[2017-06-17] MEDS: KETOROLAC 30 MG/1 ML IVPush PRN (19:54)
[2017-06-17] MEDS: NICOTINE 21 MG/24 HR PATCH.TD24 TD SCH (23:19)
[2017-06-18] MEDS: ONDANSETRON ODT 4 MG PO PRN ×3 (01:28→23:06)
[2017-06-18 01:41] VITALS: BP 141/86
[2017-06-18] MEDS: KETOROLAC 30 MG/1 ML IVPush PRN ×4 (02:51→23:05)
[2017-06-18] MEDS: CARVEDILOL 6.25 MG TABLET PO SCH ×2 (06:49→16:51)
[2017-06-18 07:40] VITALS: BP 146/86
[2017-06-18] MEDS: INSULIN LISPRO 100 UNITS/ML, PEN SQ-INSULIN SCH ×4 (07:54→19:59)
[2017-06-18] MEDS: FLUTICASONE/VILANTEROL 100-25MCG/INH INH SCH (07:55)
[2017-06-18] MEDS: metFORMIN 850 MG TABLET PO SCH ×2 (07:55→16:48)
[2017-06-18] MEDS: SENNA/DOCUSATE TABLET PO SCH (07:55)
[2017-06-18] MEDS: TAMSULOSIN 0.4 MG CAP.ER.24H PO SCH (07:56)
[2017-06-18] MEDS: THIAMINE 100MG TABLET PO SCH (07:56)
[2017-06-18] MEDS: FOLIC ACID 1 MG TABLET PO SCH (07:57)
[2017-06-18] MEDS: ENOXAPARIN 30 MG/0.3 ML SQ SCH ×2 (07:57→19:53)
[2017-06-18] MEDS: ISOSORBIDE DINITRATE 10 MG TABLET PO SCH ×3 (07:57→19:52)
[2017-06-18 10:08] LABS: ALANINE AMINOTRANSFERASE 34 U/L (12-78); ALBUMIN 3.1 g/dL (3.4-5.0); ANION GAP 3 mmol/L (5-15); CALCIUM 8.5 mg/dL (8.5-10.1); CHLORIDE 91 mmol/L (98-107); CREATININE 0.75 mg/dL (0.55-1.02)
[2017-06-18 10:10] LABS: ALKALINE PHOSPHATASE 52 U/L (45-117); BILIRUBIN,TOTAL 0.4 mg/dL (0.2-1.0); TOTAL PROTEIN 6.1 g/dL (6.4-8.2)
[2017-06-18 13:01] VITALS: BP 149/79
[2017-06-18] MEDS ORDERED: KETOROLAC 30 MG/1 ML IVPush SCH (16:30)
[2017-06-18 19:42] VITALS: BP 141/81
[2017-06-18] MEDS: ACETAMINOPHEN 325 MG TABLET PO PRN (19:52)
[2017-06-18] MEDS: NICOTINE 21 MG/24 HR PATCH.TD24 TD SCH (23:06)
[2017-06-19 01:15] VITALS: BP 166/98
[2017-06-19] MEDS: ACETAMINOPHEN 325 MG TABLET PO PRN ×4 (01:40→20:26)
[2017-06-19] MEDS: KETOROLAC 30 MG/1 ML IVPush PRN ×2 (05:46→11:59)
[2017-06-19] MEDS: CARVEDILOL 6.25 MG TABLET PO SCH (05:46)
[2017-06-19] MEDS: ONDANSETRON ODT 4 MG PO PRN ×3 (05:49→20:26)
[2017-06-19 06:25] VITALS: BP 157/98
[2017-06-19] MEDS: FOLIC ACID 1 MG TABLET PO SCH (08:09)
[2017-06-19] MEDS: metFORMIN 850 MG TABLET PO SCH ×2 (08:10→16:06)
[2017-06-19] MEDS: ENOXAPARIN 30 MG/0.3 ML SQ SCH ×2 (08:13→20:24)
[2017-06-19] MEDS: FLUTICASONE/VILANTEROL 100-25MCG/INH INH SCH (08:13)
[2017-06-19] MEDS: ISOSORBIDE DINITRATE 10 MG TABLET PO SCH ×3 (08:14→20:26)
[2017-06-19] MEDS: THIAMINE 100MG TABLET PO SCH (08:14)
[2017-06-19] MEDS: INSULIN LISPRO 100 UNITS/ML, PEN SQ-INSULIN SCH ×4 (08:14→20:24)
[2017-06-19] MEDS: SENNA/DOCUSATE TABLET PO SCH (08:14)
[2017-06-19] MEDS: TAMSULOSIN 0.4 MG CAP.ER.24H PO SCH (08:14)
[2017-06-19 12:50] VITALS: BP 164/80
[2017-06-19] MEDS: LORazepam 2 MG/ML, 1ML IVPush PRN ×2 (16:07→20:25)
[2017-06-19] MEDS: CARVEDILOL 12.5 MG TABLET PO SCH (16:11)
[2017-06-19 19:53] VITALS: BP 157/94
[2017-06-19] MEDS: NICOTINE 21 MG/24 HR PATCH.TD24 TD SCH (20:25)
[2017-06-20] MEDS: LORazepam 2 MG/ML, 1ML IVPush PRN ×3 (00:29→12:08)
[2017-06-20] MEDS: ACETAMINOPHEN 325 MG TABLET PO PRN ×2 (00:29→05:00)
[2017-06-20 01:20] VITALS: BP 168/95
[2017-06-20] MEDS: ONDANSETRON ODT 4 MG PO PRN ×4 (01:53→21:45)
[2017-06-20] MEDS: CARVEDILOL 12.5 MG TABLET PO SCH ×2 (05:00→16:48)
[2017-06-20 06:41] VITALS: BP 138/86
[2017-06-20] MEDS: INSULIN LISPRO 100 UNITS/ML, PEN SQ-INSULIN SCH ×4 (07:00→20:33)
[2017-06-20] MEDS ORDERED: MORPHINE SULFATE 4 MG/ML, 1ML IVPush PRN (07:30)
[2017-06-20] MEDS: MORPHINE SULFATE 4 MG/ML, 1ML IVPush PRN ×3 (07:57→21:45)
[2017-06-20] MEDS: metFORMIN 850 MG TABLET PO SCH ×2 (08:03→16:47)
[2017-06-20] MEDS: ISOSORBIDE DINITRATE 10 MG TABLET PO SCH ×3 (08:04→20:33)
[2017-06-20] MEDS: THIAMINE 100MG TABLET PO SCH (08:04)
[2017-06-20] MEDS: FOLIC ACID 1 MG TABLET PO SCH (08:04)
[2017-06-20] MEDS: TAMSULOSIN 0.4 MG CAP.ER.24H PO SCH (08:05)
[2017-06-20] MEDS: ENOXAPARIN 30 MG/0.3 ML SQ SCH ×2 (08:05→20:32)
[2017-06-20] MEDS: SENNA/DOCUSATE TABLET PO SCH (08:05)
[2017-06-20] MEDS ORDERED: ALBUTEROL/IPRATROPIUM 2.5MG/0.5MG, 3 ML ONE (11:51)
[2017-06-20] MEDS: ALBUTEROL/IPRATROPIUM 2.5MG/0.5MG, 3 ML NPPB PRN (11:55)
[2017-06-20] MEDS: FLUTICASONE/VILANTEROL 100-25MCG/INH INH SCH (12:23)
[2017-06-20 13:43] VITALS: BP 163/95
[2017-06-20 18:56] VITALS: BP 89/52
[2017-06-20 20:11] VITALS: BP 118/74
[2017-06-20] MEDS: FAMOTIDINE 20 MG TABLET PO PRN (20:32)
[2017-06-20] MEDS: NICOTINE 21 MG/24 HR PATCH.TD24 TD SCH (20:32)
[2017-06-21 01:51] VITALS: BP 164/79
[2017-06-21] MEDS: MORPHINE SULFATE 4 MG/ML, 1ML IVPush PRN ×6 (02:02→22:28)
[2017-06-21] MEDS: ONDANSETRON ODT 4 MG PO PRN ×5 (02:02→22:28)
[2017-06-21] MEDS: LORazepam 2 MG/ML, 1ML IVPush PRN (04:00)
[2017-06-21 06:03] VITALS: BP 165/90
[2017-06-21] MEDS: CARVEDILOL 12.5 MG TABLET PO SCH ×2 (06:09→17:15)
[2017-06-21] MEDS: INSULIN LISPRO 100 UNITS/ML, PEN SQ-INSULIN SCH ×4 (07:00→20:30)
[2017-06-21] MEDS ORDERED: morphine SULFATE 10 MG/ML, 1ML ONE ×2 (10:05→14:00)
[2017-06-21] MEDS: FOLIC ACID 1 MG TABLET PO SCH (10:16)
[2017-06-21] MEDS: metFORMIN 850 MG TABLET PO SCH ×2 (10:16→17:14)
[2017-06-21] MEDS: TAMSULOSIN 0.4 MG CAP.ER.24H PO SCH (10:16)
[2017-06-21] MEDS: FAMOTIDINE 20 MG TABLET PO PRN (10:17)
[2017-06-21] MEDS: SENNA/DOCUSATE TABLET PO SCH (10:17)
[2017-06-21] MEDS: ISOSORBIDE DINITRATE 10 MG TABLET PO SCH ×3 (10:17→20:35)
[2017-06-21] MEDS: THIAMINE 100MG TABLET PO SCH (10:18)
[2017-06-21] MEDS: ENOXAPARIN 30 MG/0.3 ML SQ SCH ×2 (10:20→20:35)
[2017-06-21] MEDS: FLUTICASONE/VILANTEROL 100-25MCG/INH INH SCH (10:21)
[2017-06-21 14:20] VITALS: BP 142/85
[2017-06-21 20:20] VITALS: BP 130/83
[2017-06-21] MEDS: NICOTINE 21 MG/24 HR PATCH.TD24 TD SCH (20:35)
[2017-06-22] MEDS: ONDANSETRON ODT 4 MG PO PRN ×4 (02:28→14:57)
[2017-06-22] MEDS: MORPHINE SULFATE 4 MG/ML, 1ML IVPush PRN ×3 (02:28→14:53)
[2017-06-22 02:50] VITALS: BP 153/90
[2017-06-22] MEDS: CARVEDILOL 12.5 MG TABLET PO SCH (06:21)
[2017-06-22 06:38] VITALS: BP 166/88
[2017-06-22] MEDS: INSULIN LISPRO 100 UNITS/ML, PEN SQ-INSULIN SCH ×4 (07:00→20:22)
[2017-06-22] MEDS: SENNA/DOCUSATE TABLET PO SCH (09:00)
[2017-06-22] MEDS: ALBUTEROL/IPRATROPIUM 2.5MG/0.5MG, 3 ML NPPB PRN ×2 (09:56→19:48)
[2017-06-22] MEDS: metFORMIN 850 MG TABLET PO SCH ×2 (10:28→18:14)
[2017-06-22] MEDS: FLUTICASONE/VILANTEROL 100-25MCG/INH INH SCH (10:28)
[2017-06-22] MEDS: TAMSULOSIN 0.4 MG CAP.ER.24H PO SCH (10:29)
[2017-06-22] MEDS: ENOXAPARIN 30 MG/0.3 ML SQ SCH ×2 (10:29→20:20)
[2017-06-22] MEDS: ISOSORBIDE DINITRATE 10 MG TABLET PO SCH (10:29)
[2017-06-22] MEDS: THIAMINE 100MG TABLET PO SCH (10:29)
[2017-06-22] MEDS: FAMOTIDINE 20 MG TABLET PO PRN (10:29)
[2017-06-22] MEDS: FOLIC ACID 1 MG TABLET PO SCH (10:29)
[2017-06-22 15:12] VITALS: BP 159/79
[2017-06-22] MEDS: GABAPENTIN 300 MG CAPSULE PO SCH ×2 (18:14→20:20)
[2017-06-22] MEDS: HYDROCHLOROTHIAZIDE 25 MG TABLET PO SCH (18:14)
[2017-06-22 19:35] VITALS: BP 127/82
[2017-06-22] MEDS: NICOTINE 21 MG/24 HR PATCH.TD24 TD SCH (20:22)
[2017-06-23 00:41] VITALS: BP 135/82
[2017-06-23] MEDS: IBUPROFEN 200 MG TABLET PO PRN ×3 (01:11→13:24)
[2017-06-23] MEDS: ALBUTEROL/IPRATROPIUM 2.5MG/0.5MG, 3 ML NPPB PRN (02:46)
[2017-06-23] MEDS: ACETAMINOPHEN 325 MG TABLET PO PRN (03:09)
[2017-06-23] MEDS: FAMOTIDINE 20 MG TABLET PO PRN ×2 (03:34→13:33)
[2017-06-23] MEDS ORDERED: HYDR25TA6 PO (06:54)
[2017-06-23] MEDS ORDERED: METF850T PO (06:54)
[2017-06-23] MEDS ORDERED: TAMS-11 PO (06:54)
[2017-06-23] MEDS: INSULIN LISPRO 100 UNITS/ML, PEN SQ-INSULIN SCH ×3 (07:00→16:00)
[2017-06-23] MEDS: FLUTICASONE/VILANTEROL 100-25MCG/INH INH SCH (08:00)
[2017-06-23] MEDS: ENOXAPARIN 30 MG/0.3 ML SQ SCH (08:01)
[2017-06-23] MEDS: THIAMINE 100MG TABLET PO SCH (08:01)
[2017-06-23] MEDS: metFORMIN 850 MG TABLET PO SCH (08:02)
[2017-06-23] MEDS: GABAPENTIN 300 MG CAPSULE PO SCH ×2 (08:02→16:00)
[2017-06-23] MEDS: FOLIC ACID 1 MG TABLET PO SCH (08:02)
[2017-06-23] MEDS: SENNA/DOCUSATE TABLET PO SCH (08:02)
[2017-06-23] MEDS: HYDROCHLOROTHIAZIDE 25 MG TABLET PO SCH (08:03)
[2017-06-23 08:25] VITALS: BP 172/108
[2017-06-23] MEDS: TAMSULOSIN 0.4 MG CAP.ER.24H PO SCH (08:46)
[2017-06-23 09:00] VITALS: BP 160/68
[2017-06-23] MEDS: ONDANSETRON ODT 4 MG PO PRN (13:23)
[2017-06-23 14:00] VITALS: BP 152/79
== END 2017-06-23 16:56 | disposition home or self-care (01) | DRG 189 ==
LOC: ED 17:37 → EDIP 17:48 → 3NE 19:30 → CCU 22:58 → 5SO 06-14 14:07 → 3NE 06-17 18:21
PROVIDERS: ADMIT Hospitalist; ATTEND Hospitalist
DX: J96.01 Acute respiratory failure with hypoxia (principal); G92 Toxic encephalopathy; E11.65 Type 2 diabetes mellitus with hyperglycemia; E66.01 Morbid (severe) obesity due to excess calories; E87.2 Acidosis; E87.1 Hypo-osmolality and hyponatremia; F10.239 Alcohol dependence with withdrawal, unspecified; J44.1 Chronic obstructive pulmonary disease with (acute) exacerbation; Z68.41 Body mass index [BMI] 40.0-44.9, adult; I99.8 Other disorder of circulatory system; R33.9 Retention of urine, unspecified; F17.210 Nicotine dependence, cigarettes, uncomplicated; I10 Essential (primary) hypertension; K59.00 Constipation, unspecified; Z51.5 Encounter for palliative care; Z66 Do not resuscitate; Z79.899 Other long term (current) drug therapy; Z85.828 Personal history of other malignant neoplasm of skin; Z90.710 Acquired absence of both cervix and uterus; Z88.0 Allergy status to penicillin; Z88.1 Allergy status to other antibiotic agents
CPT/HCPCS: 36415; 36600; 71045; 71275; 80053; 80307; 81003; 82803; 82962; 83036; 83605; 83735; 83880; 84100; 84484; 85025; 85520; 85610; 85730; 87040; 87081; 93005; 93931; 94640; 99291; C8929; J1644; J1650; J1885; J7060; J7620; J7644; Q0162; J0360; J1815; J1940; J2060; J2930; J7030; J7512

== ENCOUNTER 2017-06-26 10:34 | Emergency (ER) | payer MEDICAID ==
[~2017-06-26] VITALS: Ht 170.2 cm; Wt 113.9 kg
[~2017-06-26 10:34] MED LIST changes: +HYDR25TA6 PO; +METF850T PO; +TAMS-11 PO
[2017-06-26 13:18] LABS: MEAN CORPUSCULAR HEMOGLOBIN 32.9 pg (27.0-34.8); MEAN CORPUSCULAR HGB CONC 34.2 g/dL (32.4-35.8); MEAN CORPUSCULAR VOLUME 96.2 fL (80-100); MEAN PLATELET VOLUME 7.6 fL (7.4-10.4); PLATELET COUNT 353 x10^3/uL (130-400); RED BLOOD COUNT 3.85 x10^6/uL (3.82-5.3)
[2017-06-26 13:34] LABS: BASOPHILS # (AUTO) 0.06 x10^3/uL (0-0.1); BASOPHILS % (AUTO) 1 % (0-1); EOSINOPHILS # (AUTO) 0.08 x10^3/uL (0-0.4); EOSINOPHILS % (AUTO) 1 % (1-7); LYMPHOCYTES # (AUTO) 2.12 x10^3/uL (1-3.4); LYMPHOCYTES % (AUTO) 23 % (22-44); MD MORPH REVIEW ONLY; MONOCYTES # (AUTO) 0.85 x10^3/uL (0.2-0.8); MONOCYTES % (AUTO) 9 % (2-9); NEUTROPHILS # (AUTO) 6.08 x10^3/uL (1.8-6.8); NEUTROPHILS % (AUTO) 66 % (42-75)
[2017-06-26 13:35] LABS: ANISOCYTOSIS 1+; RED CELL DISTRIBUTION WIDTH 15.1 % (9.6-15.2)
[2017-06-26 13:36] LABS: <PLATELET ESTIMATE> ADEQUATE; <PLT MORPHOLOGY> NORMAL PLT MORPH
[2017-06-26 14:00] VITALS: BP 147/83
== END 2017-06-26 14:55 | disposition home or self-care (01) ==
LOC: ED 13:06
DX: M79.641 Pain in right hand (principal); I10 Essential (primary) hypertension; E11.9 Type 2 diabetes mellitus without complications; J44.1 Chronic obstructive pulmonary disease with (acute) exacerbation
CPT/HCPCS: 36415; 85025; 99285

== ENCOUNTER 2017-06-29 12:29 | Inpatient (IN) | payer MEDICAID ==
[~2017-06-29] VITALS: Ht 170.2 cm; Wt 115.8 kg
[2017-06-29 12:59] LABS: BASOPHILS # (AUTO) 0.02 x10^3/uL (0-0.1); BASOPHILS % (AUTO) 0 % (0-1); EOSINOPHILS % (AUTO) 2 % (1-7); LYMPHOCYTES # (AUTO) 1.92 x10^3/uL (1-3.4); LYMPHOCYTES % (AUTO) 28 % (22-44); MD NO; MEAN CORPUSCULAR HEMOGLOBIN 33.7 pg (27.0-34.8); MEAN CORPUSCULAR HGB CONC 34.5 g/dL (32.4-35.8); MEAN CORPUSCULAR VOLUME 97.6 fL (80-100); MEAN PLATELET VOLUME 7.3 fL (7.4-10.4); MONOCYTES # (AUTO) 0.61 x10^3/uL (0.2-0.8); MONOCYTES % (AUTO) 9 % (2-9); NEUTROPHILS # (AUTO) 4.32 x10^3/uL (1.8-6.8); NEUTROPHILS % (AUTO) 62 % (42-75); PLATELET COUNT 269 x10^3/uL (130-400); RED BLOOD COUNT 3.68 x10^6/uL (3.82-5.3); RED CELL DISTRIBUTION WIDTH 15.9 % (9.6-15.2)
[2017-06-29 13:10] LABS: ALBUMIN 3.4 g/dL (3.4-5.0); ANION GAP 13 mmol/L (5-15); CALCIUM 7.8 mg/dL (8.5-10.1); CHLORIDE 97 mmol/L (98-107); CREATININE 0.66 mg/dL (0.55-1.02)
[2017-06-29 13:14] LABS: TROPONIN I 0.016 ng/mL (0.000-0.045)
[2017-06-29] MEDS ORDERED: ALBUTEROL/IPRATROPIUM 2.5MG/0.5MG, 3 ML ONE (13:34)
[2017-06-29] MEDS ORDERED: LABETALOL 5MG/ML, 20ML IVPush PRN (14:00)
[2017-06-29] MEDS ORDERED: SODIUM CHLORIDE FLUSH 10ML SYR IVF PRN (14:00)
[2017-06-29] MEDS ORDERED: POLYETHYLENE GLYCOL 17 GM PACKET PO PRN (14:00)
[2017-06-29] MEDS ORDERED: hydrALAzine 20 MG/ML, 1ML IVPush PRN (14:00)
[2017-06-29] MEDS ORDERED: GUAIFENESIN/DM 200-20MG, 10ML UDC PO PRN (14:00)
[2017-06-29] MEDS ORDERED: ENOXAPARIN 40 MG/0.4 ML ONE (14:47)
[2017-06-29] MEDS ORDERED: hydrALAzine 20 MG/ML, 1ML ONE (14:47)
[2017-06-29] MEDS: ENOXAPARIN 40 MG/0.4 ML SQ SCH (14:50)
[2017-06-29] MEDS ORDERED: CLINDAMYCIN 150 MG CAPSULE PO SCH (15:00)
[2017-06-29] MEDS ORDERED: ALBUTEROL/IPRATROPIUM 2.5MG/0.5MG, 3 ML NPPB SCH (15:00)
[2017-06-29] MEDS ORDERED: LORazepam 2 MG/ML, 1ML ONE (15:10)
[2017-06-29] MEDS ORDERED: LORazepam 2 MG/ML, 1ML IVPush ONE (15:30)
[2017-06-29 16:45] VITALS: BP 161/89
[2017-06-29] MEDS: NICOTINE 21 MG/24 HR PATCH.TD24 TD SCH (17:36)
[2017-06-29] MEDS: CLINDAMYCIN 300 MG CAPSULE PO SCH ×2 (17:37→23:27)
[2017-06-29] MEDS: metFORMIN 850 MG TABLET PO SCH (17:37)
[2017-06-29] MEDS: ALBUTEROL/IPRATROPIUM 2.5MG/0.5MG, 3 ML NPPB SCH ×2 (19:00→23:00)
[2017-06-29 20:16] VITALS: BP 146/82
[2017-06-29] MEDS ORDERED: MAALOX/HYOSCYAMINE/LIDOCAINE 45 ML BTL PO ONE (21:00)
[2017-06-29] MEDS: ACETAMINOPHEN 325 MG TABLET PO PRN (21:15)
[2017-06-30 02:55] VITALS: BP 150/83
[2017-06-30] MEDS: ACETAMINOPHEN 325 MG TABLET PO PRN ×2 (04:26→08:30)
[2017-06-30] MEDS: CLINDAMYCIN 300 MG CAPSULE PO SCH ×4 (04:26→23:25)
[2017-06-30] MEDS: ALBUTEROL/IPRATROPIUM 2.5MG/0.5MG, 3 ML NPPB SCH ×5 (07:20→21:44)
[2017-06-30 08:02] VITALS: BP 164/100
[2017-06-30] MEDS: SENNA/DOCUSATE TABLET PO SCH (08:31)
[2017-06-30] MEDS: HYDROCHLOROTHIAZIDE 25 MG TABLET PO SCH (08:31)
[2017-06-30] MEDS: metFORMIN 850 MG TABLET PO SCH ×2 (08:31→17:56)
[2017-06-30] MEDS ORDERED: CHLORDIAZEPOXIDE 25 MG CAPSULE PO PRN ×3 (11:00)
[2017-06-30] MEDS: KETOROLAC 30 MG/1 ML IVPush PRN ×2 (11:34→17:57)
[2017-06-30] MEDS: CHLORDIAZEPOXIDE 10 MG CAPSULE PO PRN ×2 (11:35→23:25)
[2017-06-30 12:45] VITALS: BP 161/99
[2017-06-30] MEDS: ENOXAPARIN 40 MG/0.4 ML SQ SCH (14:47)
[2017-06-30] MEDS: NICOTINE 21 MG/24 HR PATCH.TD24 TD SCH (17:55)
[2017-06-30 19:10] VITALS: BP 160/86
[2017-07-01] MEDS: KETOROLAC 30 MG/1 ML IVPush PRN ×4 (00:45→18:26)
[2017-07-01 01:29] VITALS: BP 141/74
[2017-07-01] MEDS: CHLORDIAZEPOXIDE 10 MG CAPSULE PO PRN (03:58)
[2017-07-01] MEDS: ALBUTEROL/IPRATROPIUM 2.5MG/0.5MG, 3 ML NPPB SCH ×4 (06:00→19:05)
[2017-07-01] MEDS: CLINDAMYCIN 300 MG CAPSULE PO SCH ×4 (06:33→23:48)
[2017-07-01 07:33] VITALS: BP 149/89
[2017-07-01] MEDS: metFORMIN 850 MG TABLET PO SCH ×2 (08:58→18:26)
[2017-07-01] MEDS: HYDROCHLOROTHIAZIDE 25 MG TABLET PO SCH (08:58)
[2017-07-01] MEDS: SENNA/DOCUSATE TABLET PO SCH (08:58)
[2017-07-01 14:30] VITALS: BP 142/89
[2017-07-01] MEDS: ENOXAPARIN 40 MG/0.4 ML SQ SCH (14:49)
[2017-07-01] MEDS: NICOTINE 21 MG/24 HR PATCH.TD24 TD SCH (18:26)
[2017-07-01 19:58] VITALS: BP 165/90
[2017-07-01] MEDS: ACETAMINOPHEN 325 MG TABLET PO PRN (20:27)
[2017-07-02 01:39] VITALS: BP 149/84
[2017-07-02] MEDS: KETOROLAC 30 MG/1 ML IVPush PRN ×2 (01:49→08:29)
[2017-07-02] MEDS: CLINDAMYCIN 300 MG CAPSULE PO SCH ×2 (05:23→11:26)
[2017-07-02] MEDS: ALBUTEROL/IPRATROPIUM 2.5MG/0.5MG, 3 ML NPPB SCH ×3 (06:40→14:02)
[2017-07-02 07:30] VITALS: BP 157/93
[2017-07-02] MEDS: metFORMIN 850 MG TABLET PO SCH (08:00)
[2017-07-02] MEDS: SENNA/DOCUSATE TABLET PO SCH (08:28)
[2017-07-02] MEDS: HYDROCHLOROTHIAZIDE 25 MG TABLET PO SCH (08:29)
[2017-07-02] MEDS ORDERED: PANTOPRAZOLE 20MG TABLET PO SCH (10:30)
[2017-07-02] MEDS ORDERED: ALUMINUM/MAG/SIMETHICONE 30 ML UDC PO PRN (10:30)
[2017-07-02] MEDS ORDERED: ALBU0.63 NEB (12:21)
[2017-07-02] MEDS ORDERED: POLY17PO5 PO (12:21)
[2017-07-02] MEDS ORDERED: METF850T PO (12:21)
[2017-07-02] MEDS ORDERED: TIOT18CA INH (12:21)
[2017-07-02] MEDS ORDERED: FLUT1DIS IH (12:21)
[2017-07-02] MEDS ORDERED: OMEP-110 PO (12:21)
[2017-07-02] MEDS ORDERED: TAMS-11 PO (12:21)
[2017-07-02] MEDS ORDERED: HYDR25TA6 PO (12:21)
[2017-07-02] MEDS ORDERED: LEVO750T26 PO (12:27)
[2017-07-02] MEDS ORDERED: LOSA50TA2 PO (12:28)
[2017-07-02] MEDS ORDERED: PNEUMOCOCCAL 23 VACCINE IM-VACC ONE (13:00)
== END 2017-07-02 14:07 | disposition home or self-care (01) | DRG 193 ==
LOC: ED 13:02 → EDIP 13:31 → 3NE 15:31
PROVIDERS: ADMIT Internal Medicine Pulmonary Disease; ATTEND Internal Medicine Pulmonary Disease
DX: J18.9 Pneumonia, unspecified organism (principal); J96.91 Respiratory failure, unspecified with hypoxia; F10.239 Alcohol dependence with withdrawal, unspecified; J44.1 Chronic obstructive pulmonary disease with (acute) exacerbation; J44.0 Chronic obstructive pulmonary disease with (acute) lower respiratory infection; I11.0 Hypertensive heart disease with heart failure; I50.9 Heart failure, unspecified; E66.01 Morbid (severe) obesity due to excess calories; E11.9 Type 2 diabetes mellitus without complications; K21.9 Gastro-esophageal reflux disease without esophagitis; M85.80 Other specified disorders of bone density and structure, unspecified site; Z59.0 Homelessness; Z66 Do not resuscitate; F17.200 Nicotine dependence, unspecified, uncomplicated; Z85.828 Personal history of other malignant neoplasm of skin; Z86.14 Personal history of Methicillin resistant Staphylococcus aureus infection; Z88.0 Allergy status to penicillin; Z91.14 Patient's other noncompliance with medication regimen
CPT/HCPCS: 36415; 71045; 80048; 82040; 82962; 84484; 85025; 90732; 93005; 94640; 96372; 96374; 96375; J1650; J1885; J7620; J0360; J2060; J7512

== ENCOUNTER 2017-07-16 19:13 | Emergency (ER) | payer MEDICAID ==
[~2017-07-16] VITALS: Ht 170.2 cm; Wt 113.8 kg
[~2017-07-16 19:13] MED LIST changes: +LEVO750T26 PO; +LOSA50TA2 PO; +OMEP-110 PO; +POLY17PO5 PO
[2017-07-16 20:15] LABS: BASOPHILS # (AUTO) 0.03 x10^3/uL (0-0.1); BASOPHILS % (AUTO) 0 % (0-1); EOSINOPHILS # (AUTO) 0.09 x10^3/uL (0-0.4); EOSINOPHILS % (AUTO) 2 % (1-7); LYMPHOCYTES # (AUTO) 2.63 x10^3/uL (1-3.4); LYMPHOCYTES % (AUTO) 43 % (22-44); MD NO; MEAN CORPUSCULAR HEMOGLOBIN 32.9 pg (27.0-34.8); MEAN CORPUSCULAR VOLUME 96.8 fL (80-100); MEAN PLATELET VOLUME 6.8 fL (7.4-10.4); MONOCYTES # (AUTO) 0.47 x10^3/uL (0.2-0.8); MONOCYTES % (AUTO) 8 % (2-9); NEUTROPHILS % (AUTO) 47 % (42-75); PLATELET COUNT 309 x10^3/uL (130-400); RED BLOOD COUNT 4.26 x10^6/uL (3.82-5.3); RED CELL DISTRIBUTION WIDTH 15.5 % (9.6-15.2)
[2017-07-16 20:23] LABS: ALANINE AMINOTRANSFERASE 83 U/L (12-78); ALBUMIN 3.4 g/dL (3.4-5.0); ANION GAP 9 mmol/L (5-15); CALCIUM 8.5 mg/dL (8.5-10.1); CHLORIDE 104 mmol/L (98-107); CREATININE 0.61 mg/dL (0.55-1.02)
[2017-07-16] MEDS ORDERED: ALBUTEROL/IPRATROPIUM 2.5MG/0.5MG, 3 ML ONE (20:24)
[2017-07-16 20:27] LABS: ALKALINE PHOSPHATASE 86 U/L (45-117); BILIRUBIN,TOTAL 0.4 mg/dL (0.2-1.0); TOTAL PROTEIN 7.7 g/dL (6.4-8.2); TROPONIN I < 0.015 ng/mL (0.000-0.045)
[2017-07-16] MEDS ORDERED: ALBUTEROL/IPRATROPIUM 2.5MG/0.5MG, 3 ML NPPB ONE (20:30)
[2017-07-16] MEDS ORDERED: SODIUM CHLORIDE FLUSH 10ML SYR IVF ONE (20:30)
[2017-07-16] MEDS ORDERED: methylPREDNISolone SOD SUCC 125 MG/2 ML IVP ONE (20:30)
[2017-07-16] MEDS ORDERED: methylPREDNISolone SOD SUCC 125 MG/2 ML ONE (20:43)
[2017-07-16] MEDS ORDERED: OMNIPAQUE 350 MG/ML, 100ML BOTTLE ONE (20:54)
[2017-07-16 22:43] VITALS: BP 179/98
== END 2017-07-16 22:46 | disposition home or self-care (01) ==
LOC: ED 21:02
DX: J44.1 Chronic obstructive pulmonary disease with (acute) exacerbation (principal); E66.01 Morbid (severe) obesity due to excess calories; I10 Essential (primary) hypertension; E11.9 Type 2 diabetes mellitus without complications; F17.210 Nicotine dependence, cigarettes, uncomplicated; Z88.0 Allergy status to penicillin
CPT/HCPCS: 36415; 71046; 71275; 80053; 84484; 85025; 93005; 94640; 96374; 99285; J2930; Q9967; J7620

== ENCOUNTER 2017-07-22 12:05 | Inpatient (IN) | payer MEDICAID ==
[~2017-07-22] VITALS: Ht 170.2 cm; Wt 112.7 kg
[2017-07-22] MEDS ORDERED: LORazepam 2 MG/ML, 1ML IVP ONE (12:30)
[2017-07-22] MEDS ORDERED: ONDANSETRON ODT 4 MG PO ONE (12:30)
[2017-07-22] MEDS ORDERED: SODIUM CHLORIDE FLUSH 10ML SYR IVF ONE (12:30)
[2017-07-22] MEDS ORDERED: SODIUM CHLORIDE 0.9% 1,000ML IVBOLUS ONE (12:30)
[2017-07-22] MEDS ORDERED: ALBUTEROL/IPRATROPIUM 2.5MG/0.5MG, 3 ML NPPB SCH (12:30)
[2017-07-22] MEDS ORDERED: ONDANSETRON ODT 4 MG ONE (12:33)
[2017-07-22] MEDS ORDERED: LORazepam 2 MG/ML, 1ML ONE (12:36)
[2017-07-22] MEDS ORDERED: ALBUTEROL/IPRATROPIUM 2.5MG/0.5MG, 3 ML ONE ×2 (12:41→22:05)
[2017-07-22 12:55] LABS: MEAN CORPUSCULAR HEMOGLOBIN 32.2 pg (27.0-34.8); MEAN CORPUSCULAR HGB CONC 33.6 g/dL (32.4-35.8); MEAN CORPUSCULAR VOLUME 95.7 fL (80-100); MEAN PLATELET VOLUME 7.2 fL (7.4-10.4); PLATELET COUNT 285 x10^3/uL (130-400); RED BLOOD COUNT 4.16 x10^6/uL (3.82-5.3); RED CELL DISTRIBUTION WIDTH 15.3 % (9.6-15.2)
[2017-07-22 13:02] LABS: ALBUMIN 3.5 g/dL (3.4-5.0); ANION GAP 13 mmol/L (5-15); CALCIUM 8.1 mg/dL (8.5-10.1); CHLORIDE 100 mmol/L (98-107); SALICYLATE LEVEL 2.9 mg/dL (2.8-20.0)
[2017-07-22 13:07] LABS: ALANINE AMINOTRANSFERASE 60 U/L (12-78); ALKALINE PHOSPHATASE 85 U/L (45-117); BILIRUBIN,TOTAL 0.3 mg/dL (0.2-1.0); CREATININE 0.88 mg/dL (0.55-1.02); TOTAL PROTEIN 7.2 g/dL (6.4-8.2); TROPONIN I < 0.015 ng/mL (0.000-0.045)
[2017-07-22 13:08] LABS: ACETAMINOPHEN < 2 mcg/mL (10-30)
[2017-07-22 13:10] LABS: BASOPHILS # (AUTO) 0.04 x10^3/uL (0-0.1); BASOPHILS % (AUTO) 1 % (0-1); EOSINOPHILS # (AUTO) 0.11 x10^3/uL (0-0.4); EOSINOPHILS % (AUTO) 1 % (1-7); LYMPHOCYTES # (AUTO) 3.32 x10^3/uL (1-3.4); LYMPHOCYTES % (AUTO) 43 % (22-44); MD SCAN; MONOCYTES % (AUTO) 5 % (2-9); NEUTROPHILS # (AUTO) 3.94 x10^3/uL (1.8-6.8); NEUTROPHILS % (AUTO) 50 % (42-75)
[2017-07-22 14:04] LABS: HCG UR SG 1.007 (1.003-1.030)
[2017-07-22 14:11] LABS: MICROSCOPIC AUTO
[2017-07-22 14:16] LABS: AMPHETAMINE SCREEN, URINE Positive (Negative); BARBITURATE SCREEN, URINE Negative (Negative); BENZODIAZEPINE SCREEN, URINE Negative (Negative); CANNABINOID SCREEN, URINE Negative (Negative); COCAINE SCREEN, URINE Negative (Negative); METHADONE SCREEN, URINE Negative (Negative); OPIATE SCREEN, URINE Negative (Negative)
[2017-07-22 14:20] LABS: CULTURE INDICATED? YES
[2017-07-22] MEDS ORDERED: SODIUM CHLORIDE FLUSH 10ML SYR IVF PRN (19:30)
[2017-07-22] MEDS ORDERED: LORazepam 2 MG/ML, 1ML IVPush PRN (20:00)
[2017-07-22] MEDS ORDERED: DOCUSATE 100 MG CAPSULE PO PRN (20:00)
[2017-07-22] MEDS ORDERED: ONDANSETRON 2MG/ML, 2ML IVPush PRN (20:00)
[2017-07-22] MEDS ORDERED: POLYETHYLENE GLYCOL 17 GM PACKET PO PRN ×2 (20:00)
[2017-07-22] MEDS ORDERED: KETOROLAC 30 MG/1 ML IVPush ONE (20:30)
[2017-07-22] MEDS ORDERED: POTASSIUM CHLORIDE 20 MEQ TAB.ER.PRT PO ONE (20:30)
[2017-07-22] MEDS ORDERED: ALBUTEROL SULFATE 2.5 MG/3 ML NPPB PRN ×2 (21:00→22:00)
[2017-07-22] MEDS ORDERED: IPRATROPIUM 0.5 MG/2.5 ML INHA HHN SCH (21:00)
[2017-07-22] MEDS: ENOXAPARIN 40 MG/0.4 ML SQ SCH (21:45)
[2017-07-22] MEDS: methylPREDNISolone SOD SUCC 40 MG/ML IVPush SCH (21:45)
[2017-07-22] MEDS: OMEPRAZOLE 20 MG CAPSULE.DR PO SCH (21:46)
[2017-07-22] MEDS: SODIUM CHLORIDE 0.9% 1,000 ML IV SCH (21:50)
[2017-07-22 22:00] VITALS: BP 153/92
[2017-07-22] MEDS: INSULIN LISPRO 100 UNITS/ML, PEN SQ-INSULIN SCH (22:58)
[2017-07-22 23:19] LABS: TROPONIN I < 0.015 ng/mL (0.000-0.045)
[2017-07-23 01:58] VITALS: BP 152/93
[2017-07-23] MEDS: methylPREDNISolone SOD SUCC 40 MG/ML IVPush SCH ×4 (04:14→21:37)
[2017-07-23] MEDS: SODIUM CHLORIDE 0.9% 1,000 ML IV SCH (05:42)
[2017-07-23 05:59] LABS: BASOPHILS # (AUTO) 0.01 x10^3/uL (0-0.1); BASOPHILS % (AUTO) 0 % (0-1); EOSINOPHILS % (AUTO) 0 % (1-7); LYMPHOCYTES % (AUTO) 14 % (22-44); MD NO; MEAN CORPUSCULAR HEMOGLOBIN 32.4 pg (27.0-34.8); MEAN CORPUSCULAR HGB CONC 33.4 g/dL (32.4-35.8); MEAN PLATELET VOLUME 7.9 fL (7.4-10.4); MONOCYTES # (AUTO) 0.08 x10^3/uL (0.2-0.8); MONOCYTES % (AUTO) 1 % (2-9); NEUTROPHILS # (AUTO) 4.95 x10^3/uL (1.8-6.8); NEUTROPHILS % (AUTO) 85 % (42-75); PLATELET COUNT 253 x10^3/uL (130-400); RED BLOOD COUNT 4.16 x10^6/uL (3.82-5.3); RED CELL DISTRIBUTION WIDTH 15.6 % (9.6-15.2)
[2017-07-23 06:08] LABS: ANION GAP 5 mmol/L (5-15); CALCIUM 7.8 mg/dL (8.5-10.1); CHLORIDE 103 mmol/L (98-107)
[2017-07-23 06:14] LABS: CHOL/HDL RATIO 3.8; CHOLESTEROL, TOTAL 245 mg/dL (140-239); CREATININE 0.73 mg/dL (0.55-1.02); HDL CHOL % 26 % (28-40); HDL CHOLESTEROL (DIRECT) 64 mg/dL (40-60); LDL CHOLESTEROL,CALCULATED 160 mg/dL (54-169); LDL/HDL RATIO 2.5 (0.5-3.0); TRIGLYCERIDES 105 mg/dL (50-200); TROPONIN I < 0.015 ng/mL (0.000-0.045); VLDL CHOLESTEROL 21 mg/dL (0-25)
[2017-07-23] MEDS: ALBUTEROL/IPRATROPIUM 2.5MG/0.5MG, 3 ML NPPB SCH ×4 (07:00→18:52)
[2017-07-23 07:39] VITALS: BP 147/85
[2017-07-23] MEDS: ACETAMINOPHEN 325 MG TABLET PO PRN ×2 (07:58→12:39)
[2017-07-23] MEDS ORDERED: metFORMIN 850 MG TABLET PO SCH (08:00)
[2017-07-23] MEDS: TAMSULOSIN 0.4 MG CAP.ER.24H PO SCH (08:20)
[2017-07-23] MEDS: HYDROCHLOROTHIAZIDE 25 MG TABLET PO SCH (08:20)
[2017-07-23] MEDS: LOSARTAN 50MG TABLET PO SCH (08:20)
[2017-07-23] MEDS: INSULIN LISPRO 100 UNITS/ML, PEN SQ-INSULIN SCH ×4 (08:21→21:37)
[2017-07-23] MEDS: OMEPRAZOLE 20 MG CAPSULE.DR PO SCH ×2 (08:21→21:36)
[2017-07-23] MEDS: FLUTICASONE/VILANTEROL 100-25MCG/INH INH SCH (10:17)
[2017-07-23] MEDS: morphine SULFATE 10 MG/ML, 1ML IVPush PRN ×4 (10:18→22:06)
[2017-07-23] MEDS ORDERED: MORPHINE SULFATE 4 MG/ML, 1ML ONE ×2 (13:12→16:57)
[2017-07-23] MEDS ORDERED: NITROGLYCERIN 0.4 MG BOTTLE (25 TABS) SL PRN (14:00)
[2017-07-23] MEDS ORDERED: MAGNESIUM SULFATE PMX 2GM/50ML 50 ML IV ONE (14:00)
[2017-07-23] MEDS ORDERED: NITROGLYCERIN SINGLE TAB 0.4 MG SL PRN (14:00)
[2017-07-23] MEDS ORDERED: NITROGLYCERIN 0.4 MG/SPRAY SL PRN (14:00)
[2017-07-23] MEDS ORDERED: LORazepam 0.5MG TABLET PO PRN (14:30)
[2017-07-23] MEDS ORDERED: LORazepam 2 MG/ML, 1ML IV PRN ×4 (14:30)
[2017-07-23] MEDS ORDERED: LORazepam 1MG TABLET PO PRN ×3 (14:30)
[2017-07-23 14:32] VITALS: BP 140/80
[2017-07-23] MEDS: NICOTINE 14MG/24 HR PATCH.TD24 TD SCH (17:08)
[2017-07-23] MEDS: FOLIC ACID 1 MG TABLET PO SCH (17:08)
[2017-07-23] MEDS: THIAMINE 100MG TABLET PO SCH (17:08)
[2017-07-23 18:46] VITALS: BP 164/89
[2017-07-23] MEDS: ENOXAPARIN 40 MG/0.4 ML SQ SCH (21:35)
[2017-07-23] MEDS: ATORVASTATIN 20 MG TABLET PO SCH (21:36)
[2017-07-23] MEDS: SODIUM CHLORIDE FLUSH 10ML SYR IVF SCH (21:36)
[2017-07-23 21:57] VITALS: BP 168/100
[2017-07-23] MEDS: DIPHENHYDRAMINE 25 MG CAPSULE PO PRN (23:16)
[2017-07-24 01:07] VITALS: BP 185/102
[2017-07-24 01:16] VITALS: BP 181/105
[2017-07-24] MEDS: hydrALAzine 20 MG/ML, 1ML IVPush PRN (01:19)
[2017-07-24 02:30] VITALS: BP 164/89
[2017-07-24] MEDS: morphine SULFATE 10 MG/ML, 1ML IVPush PRN ×5 (04:58→21:28)
[2017-07-24] MEDS: methylPREDNISolone SOD SUCC 40 MG/ML IVPush SCH ×4 (04:58→20:23)
[2017-07-24 06:32] LABS: ANION GAP 5 mmol/L (5-15); CALCIUM 8.8 mg/dL (8.5-10.1); CHLORIDE 97 mmol/L (98-107); CREATININE 0.79 mg/dL (0.55-1.02)
[2017-07-24] MEDS: ALBUTEROL/IPRATROPIUM 2.5MG/0.5MG, 3 ML NPPB SCH ×4 (07:00→19:17)
[2017-07-24 07:32] LABS: MEAN CORPUSCULAR HEMOGLOBIN 32.2 pg (27.0-34.8); MEAN CORPUSCULAR HGB CONC 33.2 g/dL (32.4-35.8); MEAN CORPUSCULAR VOLUME 96.9 fL (80-100); PLATELET COUNT 267 x10^3/uL (130-400); RED BLOOD COUNT 4.26 x10^6/uL (3.82-5.3); RED CELL DISTRIBUTION WIDTH 15.5 % (9.6-15.2)
[2017-07-24 07:37] LABS: BASOPHILS % (AUTO) 0 % (0-1); EOSINOPHILS % (AUTO) 0 % (1-7); LYMPHOCYTES # (AUTO) 0.94 x10^3/uL (1-3.4); LYMPHOCYTES % (AUTO) 7 % (22-44); MD SCAN; MONOCYTES # (AUTO) 0.39 x10^3/uL (0.2-0.8); MONOCYTES % (AUTO) 3 % (2-9); NEUTROPHILS # (AUTO) 12.12 x10^3/uL (1.8-6.8); NEUTROPHILS % (AUTO) 90 % (42-75)
[2017-07-24] MEDS: ASPIRIN 325 MG TABLET EC PO SCH (07:57)
[2017-07-24 08:00] VITALS: BP 176/100
[2017-07-24] MEDS ORDERED: MORPHINE SULFATE 4 MG/ML, 1ML ONE ×3 (09:41→18:08)
[2017-07-24] MEDS: THIAMINE 100MG TABLET PO SCH (09:45)
[2017-07-24] MEDS: FLUTICASONE/VILANTEROL 100-25MCG/INH INH SCH (09:45)
[2017-07-24] MEDS: TAMSULOSIN 0.4 MG CAP.ER.24H PO SCH (09:45)
[2017-07-24] MEDS: OMEPRAZOLE 20 MG CAPSULE.DR PO SCH ×2 (09:45→20:23)
[2017-07-24] MEDS: HYDROCHLOROTHIAZIDE 25 MG TABLET PO SCH (09:45)
[2017-07-24] MEDS: LOSARTAN 50MG TABLET PO SCH (09:46)
[2017-07-24] MEDS: INSULIN LISPRO 100 UNITS/ML, PEN SQ-INSULIN SCH ×4 (09:46→20:23)
[2017-07-24] MEDS: FOLIC ACID 1 MG TABLET PO SCH (09:46)
[2017-07-24] MEDS: SODIUM CHLORIDE FLUSH 10ML SYR IVF SCH ×2 (09:47→20:23)
[2017-07-24] MEDS ORDERED: REGADENOSON 0.4 MG/5 ML SYRINGE ONE (12:34)
[2017-07-24 14:01] VITALS: BP 169/97
[2017-07-24] MEDS ORDERED: ENALAPRILAT 1.25 MG/ML, 2ML IV PRN (14:30)
[2017-07-24] MEDS: NICOTINE 14MG/24 HR PATCH.TD24 TD SCH (15:05)
[2017-07-24] MEDS: METOPROLOL TARTRATE 25 MG TABLET PO SCH (17:58)
[2017-07-24 19:31] VITALS: BP 161/89
[2017-07-24] MEDS: ENOXAPARIN 40 MG/0.4 ML SQ SCH (20:23)
[2017-07-24] MEDS: ATORVASTATIN 20 MG TABLET PO SCH (20:23)
[2017-07-24] MEDS: DIPHENHYDRAMINE 25 MG CAPSULE PO PRN (22:13)
[2017-07-25] VITALS (7 sets, daily range): BP systolic 108–197; BP diastolic 70–118
[2017-07-25] MEDS: morphine SULFATE 10 MG/ML, 1ML IVPush PRN ×4 (01:28→12:35)
[2017-07-25] MEDS: ASPIRIN 325 MG TABLET EC PO SCH (05:21)
[2017-07-25] MEDS: METOPROLOL TARTRATE 25 MG TABLET PO SCH ×2 (05:22→17:17)
[2017-07-25] MEDS: DIPHENHYDRAMINE 25 MG CAPSULE PO PRN ×2 (05:22→18:43)
[2017-07-25 05:46] LABS: BASOPHILS % (AUTO) 0 % (0-1); EOSINOPHILS % (AUTO) 0 % (1-7); LYMPHOCYTES % (AUTO) 11 % (22-44); MEAN CORPUSCULAR HEMOGLOBIN 32.6 pg (27.0-34.8); MEAN CORPUSCULAR HGB CONC 33.5 g/dL (32.4-35.8); MEAN CORPUSCULAR VOLUME 97.1 fL (80-100); MEAN PLATELET VOLUME 8.3 fL (7.4-10.4); MONOCYTES % (AUTO) 5 % (2-9); NEUTROPHILS # (AUTO) 10.36 x10^3/uL (1.8-6.8); NEUTROPHILS % (AUTO) 85 % (42-75); PLATELET COUNT 245 x10^3/uL (130-400); RED CELL DISTRIBUTION WIDTH 15.3 % (9.6-15.2)
[2017-07-25 05:47] LABS: BASOPHILS # (AUTO) 0.01 x10^3/uL (0-0.1); LYMPHOCYTES # (AUTO) 1.29 x10^3/uL (1-3.4); MD NO
[2017-07-25 05:47] LABS: ANION GAP 5 mmol/L (5-15); CALCIUM 8.8 mg/dL (8.5-10.1); CHLORIDE 94 mmol/L (98-107); CREATININE 0.83 mg/dL (0.55-1.02)
[2017-07-25] MEDS: ALBUTEROL/IPRATROPIUM 2.5MG/0.5MG, 3 ML NPPB SCH ×4 (07:02→20:05)
[2017-07-25] MEDS: INSULIN LISPRO 100 UNITS/ML, PEN SQ-INSULIN SCH ×4 (08:02→20:51)
[2017-07-25] MEDS: methylPREDNISolone SOD SUCC 40 MG/ML IVPush SCH (08:03)
[2017-07-25] MEDS: THIAMINE 100MG TABLET PO SCH (08:03)
[2017-07-25] MEDS: TAMSULOSIN 0.4 MG CAP.ER.24H PO SCH (08:03)
[2017-07-25] MEDS: LOSARTAN 50MG TABLET PO SCH ×2 (08:03→20:52)
[2017-07-25] MEDS: SODIUM CHLORIDE FLUSH 10ML SYR IVF SCH ×2 (08:03→20:51)
[2017-07-25] MEDS: HYDROCHLOROTHIAZIDE 25 MG TABLET PO SCH (08:03)
[2017-07-25] MEDS: OMEPRAZOLE 20 MG CAPSULE.DR PO SCH ×2 (08:03→20:52)
[2017-07-25] MEDS: FLUTICASONE/VILANTEROL 100-25MCG/INH INH SCH (08:03)
[2017-07-25] MEDS: FOLIC ACID 1 MG TABLET PO SCH (08:03)
[2017-07-25] MEDS: metFORMIN 850 MG TABLET PO SCH ×2 (09:00→16:21)
[2017-07-25] MEDS: hydrALAzine 20 MG/ML, 1ML IVPush PRN (09:22)
[2017-07-25] MEDS: NICOTINE 14MG/24 HR PATCH.TD24 TD SCH (15:43)
[2017-07-25] MEDS: ACETAMINOPHEN 325 MG TABLET PO PRN ×2 (15:46→20:52)
[2017-07-25] MEDS: ATORVASTATIN 20 MG TABLET PO SCH (20:51)
[2017-07-25] MEDS: ENOXAPARIN 40 MG/0.4 ML SQ SCH (20:51)
[2017-07-25] MEDS: INSULIN GLARGINE 100 UNITS/ML, PEN SQ-INSULIN SCH (21:44)
[2017-07-26 01:07] VITALS: BP 166/85
[2017-07-26 05:38] LABS: CHLORIDE 95 mmol/L (98-107)
[2017-07-26 05:46] LABS: ANION GAP 7 mmol/L (5-15); CALCIUM 9.3 mg/dL (8.5-10.1); CREATININE 0.68 mg/dL (0.55-1.02)
[2017-07-26 05:54] LABS: BASOPHILS # (AUTO) 0.01 x10^3/uL (0-0.1); BASOPHILS % (AUTO) 0 % (0-1); EOSINOPHILS # (AUTO) 0.01 x10^3/uL (0-0.4); EOSINOPHILS % (AUTO) 0 % (1-7); LYMPHOCYTES # (AUTO) 1.57 x10^3/uL (1-3.4); LYMPHOCYTES % (AUTO) 17 % (22-44); MD NO; MEAN CORPUSCULAR HEMOGLOBIN 32.6 pg (27.0-34.8); MEAN CORPUSCULAR HGB CONC 33.6 g/dL (32.4-35.8); MEAN CORPUSCULAR VOLUME 97.2 fL (80-100); MEAN PLATELET VOLUME 8.2 fL (7.4-10.4); MONOCYTES % (AUTO) 8 % (2-9); NEUTROPHILS # (AUTO) 6.82 x10^3/uL (1.8-6.8); NEUTROPHILS % (AUTO) 75 % (42-75); PLATELET COUNT 196 x10^3/uL (130-400); RED BLOOD COUNT 4.44 x10^6/uL (3.82-5.3); RED CELL DISTRIBUTION WIDTH 15.9 % (9.6-15.2)
[2017-07-26] MEDS: METOPROLOL TARTRATE 25 MG TABLET PO SCH ×2 (06:11→17:02)
[2017-07-26] MEDS: ACETAMINOPHEN 325 MG TABLET PO PRN ×2 (06:11→14:51)
[2017-07-26] MEDS: ASPIRIN 81 MG TABLET EC PO SCH (06:11)
[2017-07-26] MEDS: ALBUTEROL/IPRATROPIUM 2.5MG/0.5MG, 3 ML NPPB SCH ×4 (07:00→20:58)
[2017-07-26] MEDS: INSULIN LISPRO 100 UNITS/ML, PEN SQ-INSULIN SCH ×4 (07:00→21:10)
[2017-07-26] MEDS: metFORMIN 850 MG TABLET PO SCH ×2 (08:00→16:49)
[2017-07-26 08:12] VITALS: BP 159/80
[2017-07-26] MEDS: FLUTICASONE/VILANTEROL 100-25MCG/INH INH SCH (09:00)
[2017-07-26] MEDS: THIAMINE 100MG TABLET PO SCH (09:41)
[2017-07-26] MEDS: FOLIC ACID 1 MG TABLET PO SCH (09:41)
[2017-07-26] MEDS: TAMSULOSIN 0.4 MG CAP.ER.24H PO SCH (09:42)
[2017-07-26] MEDS: OMEPRAZOLE 20 MG CAPSULE.DR PO SCH ×2 (09:42→21:05)
[2017-07-26] MEDS: LOSARTAN 50MG TABLET PO SCH ×2 (09:42→21:06)
[2017-07-26] MEDS: HYDROCHLOROTHIAZIDE 25 MG TABLET PO SCH (09:42)
[2017-07-26] MEDS: SODIUM CHLORIDE FLUSH 10ML SYR IVF SCH ×2 (09:43→21:00)
[2017-07-26 13:59] VITALS: BP 142/92
[2017-07-26] MEDS: NICOTINE 14MG/24 HR PATCH.TD24 TD SCH (14:51)
[2017-07-26] MEDS: GUAIFENESIN 200 MG TABLET PO SCH ×2 (17:02→21:05)
[2017-07-26 19:15] VITALS: BP 144/89
[2017-07-26] MEDS: ENOXAPARIN 40 MG/0.4 ML SQ SCH (21:00)
[2017-07-26] MEDS: ATORVASTATIN 20 MG TABLET PO SCH (21:05)
[2017-07-26] MEDS: INSULIN GLARGINE 100 UNITS/ML, PEN SQ-INSULIN SCH (21:10)
[2017-07-27 01:05] VITALS: BP 162/109
[2017-07-27] MEDS: hydrALAzine 20 MG/ML, 1ML IVPush PRN (01:12)
[2017-07-27 02:27] VITALS: BP 158/88
[2017-07-27] MEDS: METOPROLOL TARTRATE 25 MG TABLET PO SCH ×2 (05:14→18:22)
[2017-07-27] MEDS: ASPIRIN 81 MG TABLET EC PO SCH (05:14)
[2017-07-27] MEDS: GUAIFENESIN 200 MG TABLET PO SCH ×4 (05:14→20:33)
[2017-07-27] MEDS: ALBUTEROL/IPRATROPIUM 2.5MG/0.5MG, 3 ML NPPB SCH ×4 (06:35→19:30)
[2017-07-27] MEDS: INSULIN LISPRO 100 UNITS/ML, PEN SQ-INSULIN SCH ×4 (07:00→20:41)
[2017-07-27] MEDS: metFORMIN 850 MG TABLET PO SCH ×2 (08:00→16:08)
[2017-07-27 08:33] VITALS: BP 124/80
[2017-07-27] MEDS ORDERED: MAALOX/HYOSCYAMINE/LIDOCAINE 45 ML BTL PO PRN (09:00)
[2017-07-27] MEDS: SODIUM CHLORIDE FLUSH 10ML SYR IVF SCH ×2 (10:26→20:33)
[2017-07-27] MEDS: FLUTICASONE/VILANTEROL 100-25MCG/INH INH SCH (10:26)
[2017-07-27] MEDS: LOSARTAN 50MG TABLET PO SCH ×2 (10:26→20:33)
[2017-07-27] MEDS: TAMSULOSIN 0.4 MG CAP.ER.24H PO SCH (10:26)
[2017-07-27] MEDS: HYDROCHLOROTHIAZIDE 25 MG TABLET PO SCH (10:27)
[2017-07-27] MEDS: THIAMINE 100MG TABLET PO SCH (10:27)
[2017-07-27] MEDS: OMEPRAZOLE 20 MG CAPSULE.DR PO SCH ×2 (10:27→20:33)
[2017-07-27] MEDS: FOLIC ACID 1 MG TABLET PO SCH (11:17)
[2017-07-27] MEDS: ACETAMINOPHEN 325 MG TABLET PO PRN ×2 (12:03→20:33)
[2017-07-27 15:49] VITALS: BP 132/85
[2017-07-27] MEDS ORDERED: LIDODERM 5% PATCH TD SCH (17:00)
[2017-07-27] MEDS: NICOTINE 14MG/24 HR PATCH.TD24 TD SCH (17:16)
[2017-07-27] MEDS: ENOXAPARIN 40 MG/0.4 ML SQ SCH (20:33)
[2017-07-27] MEDS: INSULIN GLARGINE 100 UNITS/ML, PEN SQ-INSULIN SCH (20:41)
[2017-07-27 21:26] VITALS: BP 106/64
[2017-07-28 02:39] VITALS: BP 136/80
[2017-07-28] MEDS: GUAIFENESIN 200 MG TABLET PO SCH ×4 (06:08→20:25)
[2017-07-28] MEDS: METOPROLOL TARTRATE 25 MG TABLET PO SCH ×2 (06:09→17:41)
[2017-07-28] MEDS: INSULIN LISPRO 100 UNITS/ML, PEN SQ-INSULIN SCH ×4 (07:00→20:24)
[2017-07-28 07:27] VITALS: BP 126/88
[2017-07-28] MEDS: metFORMIN 850 MG TABLET PO SCH ×2 (08:00→16:42)
[2017-07-28] MEDS: ALBUTEROL/IPRATROPIUM 2.5MG/0.5MG, 3 ML NPPB SCH ×4 (09:00→19:18)
[2017-07-28] MEDS: FLUTICASONE/VILANTEROL 100-25MCG/INH INH SCH (09:00)
[2017-07-28] MEDS: SODIUM CHLORIDE FLUSH 10ML SYR IVF SCH ×2 (09:00→20:26)
[2017-07-28] MEDS: HYDROCHLOROTHIAZIDE 25 MG TABLET PO SCH (09:45)
[2017-07-28] MEDS: TAMSULOSIN 0.4 MG CAP.ER.24H PO SCH (09:45)
[2017-07-28] MEDS: LOSARTAN 50MG TABLET PO SCH ×2 (09:45→20:26)
[2017-07-28] MEDS: THIAMINE 100MG TABLET PO SCH (09:45)
[2017-07-28] MEDS: FOLIC ACID 1 MG TABLET PO SCH (09:45)
[2017-07-28] MEDS: OMEPRAZOLE 20 MG CAPSULE.DR PO SCH ×2 (09:45→20:25)
[2017-07-28] MEDS: NAPROXEN 250 MG TABLET PO SCH ×2 (10:02→20:25)
[2017-07-28 13:34] VITALS: BP 116/70
[2017-07-28] MEDS: NICOTINE 14MG/24 HR PATCH.TD24 TD SCH (16:16)
[2017-07-28 19:34] VITALS: BP 106/69
[2017-07-28] MEDS: ENOXAPARIN 40 MG/0.4 ML SQ SCH (20:25)
[2017-07-28] MEDS ORDERED: INSULIN GLARGINE 100 UNITS/ML, PEN SQ-INSULIN SCH (21:00)
[2017-07-29 00:40] VITALS: BP 125/76
[2017-07-29] MEDS: GUAIFENESIN 200 MG TABLET PO SCH ×4 (05:26→20:05)
[2017-07-29] MEDS: METOPROLOL TARTRATE 25 MG TABLET PO SCH ×2 (05:26→17:46)
[2017-07-29] MEDS: INSULIN LISPRO 100 UNITS/ML, PEN SQ-INSULIN SCH ×4 (07:00→20:04)
[2017-07-29 07:21] VITALS: BP 132/87
[2017-07-29] MEDS: metFORMIN 850 MG TABLET PO SCH ×2 (08:00→17:00)
[2017-07-29] MEDS: ALBUTEROL/IPRATROPIUM 2.5MG/0.5MG, 3 ML NPPB SCH ×4 (08:30→20:20)
[2017-07-29] MEDS: THIAMINE 100MG TABLET PO SCH (08:53)
[2017-07-29] MEDS: OMEPRAZOLE 20 MG CAPSULE.DR PO SCH ×2 (08:53→20:05)
[2017-07-29] MEDS: HYDROCHLOROTHIAZIDE 25 MG TABLET PO SCH (08:53)
[2017-07-29] MEDS: SODIUM CHLORIDE FLUSH 10ML SYR IVF SCH ×2 (08:54→20:04)
[2017-07-29] MEDS: LOSARTAN 50MG TABLET PO SCH ×2 (08:54→20:05)
[2017-07-29] MEDS: FLUTICASONE/VILANTEROL 100-25MCG/INH INH SCH (08:54)
[2017-07-29] MEDS: NAPROXEN 250 MG TABLET PO SCH ×2 (08:54→20:05)
[2017-07-29] MEDS: FOLIC ACID 1 MG TABLET PO SCH (08:54)
[2017-07-29] MEDS: TAMSULOSIN 0.4 MG CAP.ER.24H PO SCH (08:54)
[2017-07-29 12:47] VITALS: BP 99/63
[2017-07-29] MEDS: NICOTINE 14MG/24 HR PATCH.TD24 TD SCH (16:45)
[2017-07-29 19:14] VITALS: BP 142/76
[2017-07-29] MEDS: ENOXAPARIN 40 MG/0.4 ML SQ SCH (20:05)
[2017-07-29] MEDS ORDERED: INSULIN GLARGINE 100 UNITS/ML, PEN SQ-INSULIN SCH (21:00)
[2017-07-30 01:15] VITALS: BP 144/80
[2017-07-30] MEDS: GUAIFENESIN 200 MG TABLET PO SCH ×2 (05:50→12:13)
[2017-07-30] MEDS: METOPROLOL TARTRATE 25 MG TABLET PO SCH (05:50)
[2017-07-30] MEDS: INSULIN LISPRO 100 UNITS/ML, PEN SQ-INSULIN SCH ×2 (07:00→12:13)
[2017-07-30 07:41] VITALS: BP 108/70
[2017-07-30] MEDS: ALBUTEROL/IPRATROPIUM 2.5MG/0.5MG, 3 ML NPPB SCH ×2 (07:45→10:59)
[2017-07-30] MEDS: metFORMIN 850 MG TABLET PO SCH (08:00)
[2017-07-30] MEDS: THIAMINE 100MG TABLET PO SCH (09:00)
[2017-07-30] MEDS: SODIUM CHLORIDE FLUSH 10ML SYR IVF SCH (09:00)
[2017-07-30] MEDS: HYDROCHLOROTHIAZIDE 25 MG TABLET PO SCH (09:03)
[2017-07-30] MEDS: LOSARTAN 50MG TABLET PO SCH (09:03)
[2017-07-30] MEDS: OMEPRAZOLE 20 MG CAPSULE.DR PO SCH (09:03)
[2017-07-30] MEDS: FOLIC ACID 1 MG TABLET PO SCH (09:03)
[2017-07-30] MEDS: TAMSULOSIN 0.4 MG CAP.ER.24H PO SCH (09:04)
[2017-07-30] MEDS: NAPROXEN 250 MG TABLET PO SCH (09:04)
[2017-07-30] MEDS: FLUTICASONE/VILANTEROL 100-25MCG/INH INH SCH (09:04)
[2017-07-30] MEDS ORDERED: GUAI200T3 PO (10:17)
[2017-07-30] MEDS ORDERED: INSU100I11 SQ-INSULIN (10:17)
[2017-07-30] MEDS ORDERED: NAPR250T6 PO (10:17)
[2017-07-30] MEDS ORDERED: PRED20TA PO (10:17)
== END 2017-07-30 13:14 | disposition home or self-care (01) | DRG 189 ==
LOC: ED 14:40 → EDIP 19:24 → SUATTDRO 19:50 → 4WST 20:42 → 3NE 07-26 13:55
PROVIDERS: ADMIT Hospitalist; ATTEND Hospitalist
DX: J96.21 Acute and chronic respiratory failure with hypoxia (principal); C34.90 Malignant neoplasm of unspecified part of unspecified bronchus or lung; I50.32 Chronic diastolic (congestive) heart failure; I11.0 Hypertensive heart disease with heart failure; R45.851 Suicidal ideations; E66.01 Morbid (severe) obesity due to excess calories; J44.1 Chronic obstructive pulmonary disease with (acute) exacerbation; J98.11 Atelectasis; E11.9 Type 2 diabetes mellitus without complications; E78.5 Hyperlipidemia, unspecified; E83.42 Hypomagnesemia; F15.10 Other stimulant abuse, uncomplicated; F32.9 Major depressive disorder, single episode, unspecified; K21.9 Gastro-esophageal reflux disease without esophagitis; M85.80 Other specified disorders of bone density and structure, unspecified site; M94.0 Chondrocostal junction syndrome [Tietze]; R07.89 Other chest pain; Z51.5 Encounter for palliative care; Z59.0 Homelessness; Z85.118 Personal history of other malignant neoplasm of bronchus and lung; Z85.828 Personal history of other malignant neoplasm of skin; Z86.14 Personal history of Methicillin resistant Staphylococcus aureus infection; Z87.891 Personal history of nicotine dependence; Z91.14 Patient's other noncompliance with medication regimen; Z91.19 Patient's noncompliance with other medical treatment and regimen; F10.220 Alcohol dependence with intoxication, uncomplicated; Z68.38 Body mass index [BMI] 38.0-38.9, adult
CPT/HCPCS: 36415; 71045; 71275; 78452; 78582; 80048; 80053; 80061; 80307; 80329; 81001; 81025; 82962; 83735; 83880; 84100; 84484; 85025; 87086; 93005; 93017; 94640; 96361; 96374; J1650; J1885; J2785; J7620; Q0162; A9502; A9540; A9558; C9898; G0480; J0360; J1815; J2060; J2270; J2920; J3475; J7030; J7512; Q0163

== ENCOUNTER 2017-08-14 23:16 | Inpatient (IN) | payer MEDICAID ==
[~2017-08-14] VITALS: Ht 170.2 cm; Wt 127.2 kg
[~2017-08-14 23:16] MED LIST changes: +GUAI200T3 PO; +INSU100I11 SQ-INSULIN; +NAPR250T6 PO
[2017-08-14] MEDS ORDERED: ALBUTEROL/IPRATROPIUM 2.5MG/0.5MG, 3 ML ONE (23:56)
[2017-08-15] MEDS ORDERED: methylPREDNISolone SOD SUCC 125 MG/2 ML IVP ONE
[2017-08-15] MEDS ORDERED: SODIUM CHLORIDE 0.9% 1,000ML IVBOLUS ONE
[2017-08-15] MEDS ORDERED: methylPREDNISolone SOD SUCC 125 MG/2 ML ONE (00:15)
[2017-08-15 00:19] LABS: BASOPHILS # (AUTO) 0.02 x10^3/uL (0-0.1); BASOPHILS % (AUTO) 0 % (0-1); EOSINOPHILS # (AUTO) 0.05 x10^3/uL (0-0.4); EOSINOPHILS % (AUTO) 1 % (1-7); LYMPHOCYTES # (AUTO) 2.44 x10^3/uL (1-3.4); LYMPHOCYTES % (AUTO) 24 % (22-44); MD NO; MEAN CORPUSCULAR HEMOGLOBIN 32.7 pg (27.0-34.8); MEAN CORPUSCULAR HGB CONC 33.8 g/dL (32.4-35.8); MEAN CORPUSCULAR VOLUME 96.7 fL (80-100); MEAN PLATELET VOLUME 7.5 fL (7.4-10.4); MONOCYTES # (AUTO) 0.69 x10^3/uL (0.2-0.8); MONOCYTES % (AUTO) 7 % (2-9); NEUTROPHILS # (AUTO) 6.84 x10^3/uL (1.8-6.8); NEUTROPHILS % (AUTO) 68 % (42-75); PLATELET COUNT 228 x10^3/uL (130-400); RED BLOOD COUNT 4.01 x10^6/uL (3.82-5.3); RED CELL DISTRIBUTION WIDTH 15.1 % (9.6-15.2)
[2017-08-15 00:25] LABS: ALBUMIN 3.4 g/dL (3.4-5.0); ANION GAP 12 mmol/L (5-15); CALCIUM 9.6 mg/dL (8.5-10.1); CHLORIDE 95 mmol/L (98-107); CREATININE 1.29 mg/dL (0.55-1.02); INTERNATIONAL NORMALIZED RATIO 0.99 (0.93-1.1); PROTHROMBIN TIME 10.2 Seconds (9.6-11.5)
[2017-08-15] MEDS ORDERED: OMNIPAQUE 350 MG/ML, 100ML BOTTLE ONE (00:25)
[2017-08-15 00:29] LABS: TROPONIN I 0.022 ng/mL (0.000-0.045)
[2017-08-15] MEDS ORDERED: LEVOFLOXACIN/PMX 750MG/150ML 150 ML IV ONE (02:00)
[2017-08-15] MEDS ORDERED: LORazepam 2 MG/ML, 1ML IVPush ONE (02:00)
[2017-08-15] MEDS ORDERED: LEVOFLOXACIN/PMX 750MG/150ML 150 ML ONE (02:06)
[2017-08-15] MEDS ORDERED: LORazepam 2 MG/ML, 1ML ONE (02:07)
[2017-08-15] MEDS ORDERED: LEVO750T26 PO (02:26)
[2017-08-15] MEDS ORDERED: DILT180T PO (02:26)
[2017-08-15] MEDS ORDERED: GABA300C10 PO (02:26)
[2017-08-15] MEDS ORDERED: TERA2CAP3 PO (02:26)
[2017-08-15] MEDS ORDERED: INSU200I SC (03:27)
[2017-08-15 03:52] VITALS: BP 123/80
[2017-08-15] MEDS ORDERED: BISACODYL 10 MG SUPP PR PRN (04:30)
[2017-08-15] MEDS ORDERED: morphine SULFATE 10 MG/ML, 1ML IVPush PRN (04:30)
[2017-08-15] MEDS ORDERED: hydrALAzine 20 MG/ML, 1ML IVPush PRN (04:30)
[2017-08-15] MEDS ORDERED: POLYETHYLENE GLYCOL 17 GM PACKET PO PRN (04:30)
[2017-08-15] MEDS ORDERED: ONDANSETRON 2MG/ML, 2ML IVPush PRN (04:30)
[2017-08-15] MEDS ORDERED: ONDANSETRON ODT 4 MG PO PRN (04:30)
[2017-08-15] MEDS ORDERED: ALBUTEROL/IPRATROPIUM 2.5MG/0.5MG, 3 ML NPPB SCH (04:30)
[2017-08-15] MEDS ORDERED: LABETALOL 5MG/ML, 20ML IVPush PRN (04:30)
[2017-08-15] MEDS ORDERED: POTASSIUM CHLORIDE 20 MEQ TAB.ER.PRT PO ONE (05:00)
[2017-08-15] MEDS: SODIUM CHLORIDE 0.9% 1,000 ML IV SCH ×2 (05:26→17:05)
[2017-08-15] MEDS: NICOTINE 7 MG/24 HR PATCH.TD24 TD SCH (05:27)
[2017-08-15] MEDS: GABAPENTIN 100 MG CAPSULE PO SCH ×4 (05:27→22:32)
[2017-08-15] MEDS: GUAIFENESIN 200 MG TABLET PO SCH ×2 (05:27→17:04)
[2017-08-15] MEDS: HEPARIN 5,000 UNITS/ML, 1ML SQ SCH ×3 (05:27→22:31)
[2017-08-15] MEDS: methylPREDNISolone SOD SUCC 125 MG/2 ML IVPush SCH ×4 (05:28→22:42)
[2017-08-15] MEDS: ALBUTEROL/IPRATROPIUM 2.5MG/0.5MG, 3 ML NPPB SCH ×3 (06:41→18:52)
[2017-08-15 07:25] VITALS: BP 104/70
[2017-08-15] MEDS: INSULIN LISPRO 100 UNITS/ML, PEN SQ-INSULIN SCH ×4 (08:00→22:34)
[2017-08-15 08:29] LABS: TROPONIN I < 0.015 ng/mL (0.000-0.045)
[2017-08-15 08:36] LABS: THYROID STIMULATING HORMONE 1.42 mIU/L (0.358-3.740)
[2017-08-15 08:38] LABS: HEMOGLOBIN A1C 7.2 % (4.2-6.3)
[2017-08-15 11:29] VITALS: BP 132/76
[2017-08-15] MEDS: FLUTICASONE/VILANTEROL 200-25MCG/INH INH SCH (11:48)
[2017-08-15] MEDS: DOXYCYCLINE 100MG TABLET PO SCH ×2 (11:51→22:32)
[2017-08-15] MEDS: SENNA/DOCUSATE TABLET PO SCH (11:51)
[2017-08-15] MEDS: DILTIAZEM CD 180 MG CAP.ER.24H PO SCH (11:51)
[2017-08-15] MEDS: OMEPRAZOLE 20 MG CAPSULE.DR PO SCH ×2 (11:51→22:32)
[2017-08-15] MEDS: OXYcodone IR 5MG TABLET PO PRN ×3 (12:23→22:33)
[2017-08-15] MEDS ORDERED: MAGNESIUM SULFATE 2 GM in SODIUM CHLORIDE 0.9% 50 ML IV ONE (13:30)
[2017-08-15 14:00] VITALS: BP 113/75
[2017-08-15 15:43] LABS: TROPONIN I < 0.015 ng/mL (0.000-0.045)
[2017-08-15 18:55] LABS: MICROSCOPIC AUTO
[2017-08-15 18:56] LABS: CULTURE INDICATED? NO
[2017-08-15 19:37] VITALS: BP 160/97
[2017-08-15] MEDS: TERAZOSIN 2MG CAPSULE PO SCH (22:31)
[2017-08-16 00:32] VITALS: BP 165/99
[2017-08-16] MEDS: methylPREDNISolone SOD SUCC 125 MG/2 ML IVPush SCH ×4 (05:14→23:07)
[2017-08-16] MEDS: NICOTINE 7 MG/24 HR PATCH.TD24 TD SCH (05:14)
[2017-08-16] MEDS: HEPARIN 5,000 UNITS/ML, 1ML SQ SCH ×3 (05:15→20:48)
[2017-08-16] MEDS: GUAIFENESIN 200 MG TABLET PO SCH ×2 (05:15→16:44)
[2017-08-16] MEDS: OXYcodone IR 5MG TABLET PO PRN ×4 (05:15→20:56)
[2017-08-16 05:34] LABS: BASOPHILS % (AUTO) 0 % (0-1); EOSINOPHILS % (AUTO) 0 % (1-7); LYMPHOCYTES # (AUTO) 0.51 x10^3/uL (1-3.4); LYMPHOCYTES % (AUTO) 5 % (22-44); MD NO; MEAN CORPUSCULAR HEMOGLOBIN 32.4 pg (27.0-34.8); MEAN CORPUSCULAR HGB CONC 33.3 g/dL (32.4-35.8); MEAN CORPUSCULAR VOLUME 97.3 fL (80-100); MEAN PLATELET VOLUME 7.5 fL (7.4-10.4); MONOCYTES # (AUTO) 0.18 x10^3/uL (0.2-0.8); MONOCYTES % (AUTO) 2 % (2-9); NEUTROPHILS # (AUTO) 10.48 x10^3/uL (1.8-6.8); NEUTROPHILS % (AUTO) 94 % (42-75); PLATELET COUNT 169 x10^3/uL (130-400); RED CELL DISTRIBUTION WIDTH 15.6 % (9.6-15.2)
[2017-08-16 05:35] LABS: ALANINE AMINOTRANSFERASE 39 U/L (12-78); ALBUMIN 3.5 g/dL (3.4-5.0); ANION GAP 6 mmol/L (5-15); CALCIUM 8.8 mg/dL (8.5-10.1); CHLORIDE 96 mmol/L (98-107); CHOLESTEROL, TOTAL 224 mg/dL (140-239); CREATININE 0.95 mg/dL (0.55-1.02)
[2017-08-16 05:38] LABS: ALKALINE PHOSPHATASE 55 U/L (45-117); BILIRUBIN,TOTAL 0.2 mg/dL (0.2-1.0); CHOL/HDL RATIO 2.2; HDL CHOL % 45 % (28-40); HDL CHOLESTEROL (DIRECT) 100 mg/dL (40-60); LDL CHOLESTEROL,CALCULATED 100 mg/dL (54-169); TOTAL PROTEIN 6.7 g/dL (6.4-8.2); TRIGLYCERIDES 118 mg/dL (50-200); VLDL CHOLESTEROL 24 mg/dL (0-25)
[2017-08-16 07:37] VITALS: BP 155/92
[2017-08-16] MEDS: ALBUTEROL/IPRATROPIUM 2.5MG/0.5MG, 3 ML NPPB SCH ×4 (07:50→19:32)
[2017-08-16] MEDS: SENNA/DOCUSATE TABLET PO SCH (09:00)
[2017-08-16] MEDS: DOXYCYCLINE 100MG TABLET PO SCH ×2 (09:09→20:47)
[2017-08-16] MEDS: INSULIN LISPRO 100 UNITS/ML, PEN SQ-INSULIN SCH ×4 (09:09→20:49)
[2017-08-16] MEDS: FLUTICASONE/VILANTEROL 200-25MCG/INH INH SCH (09:09)
[2017-08-16] MEDS: DILTIAZEM CD 180 MG CAP.ER.24H PO SCH (09:10)
[2017-08-16] MEDS: GABAPENTIN 100 MG CAPSULE PO SCH ×3 (09:10→20:47)
[2017-08-16] MEDS: OMEPRAZOLE 20 MG CAPSULE.DR PO SCH ×2 (09:10→20:47)
[2017-08-16 12:31] VITALS: BP 134/79
[2017-08-16] MEDS: LORATADINE 10 MG TABLET PO SCH (16:44)
[2017-08-16] MEDS ORDERED: DIPHENHYDRAMINE 25 MG CAPSULE PO ONE (19:30)
[2017-08-16 20:27] VITALS: BP 150/80
[2017-08-16] MEDS: TERAZOSIN 2MG CAPSULE PO SCH (20:47)
[2017-08-16] MEDS: FAMOTIDINE 20 MG TABLET PO SCH (20:48)
[2017-08-17 01:46] VITALS: BP 155/95
[2017-08-17] MEDS: OXYcodone IR 5MG TABLET PO PRN ×5 (01:56→23:21)
[2017-08-17] MEDS: ALBUTEROL/IPRATROPIUM 2.5MG/0.5MG, 3 ML NPPB PRN (03:43)
[2017-08-17] MEDS: HEPARIN 5,000 UNITS/ML, 1ML SQ SCH ×3 (04:52→21:31)
[2017-08-17] MEDS: NICOTINE 7 MG/24 HR PATCH.TD24 TD SCH (04:52)
[2017-08-17] MEDS: GUAIFENESIN 200 MG TABLET PO SCH ×2 (04:52→16:34)
[2017-08-17] MEDS: methylPREDNISolone SOD SUCC 125 MG/2 ML IVPush SCH ×4 (04:52→23:21)
[2017-08-17] MEDS: ALBUTEROL/IPRATROPIUM 2.5MG/0.5MG, 3 ML NPPB SCH ×4 (07:13→19:51)
[2017-08-17] MEDS: FAMOTIDINE 20 MG TABLET PO SCH ×2 (07:30→21:38)
[2017-08-17] MEDS: OMEPRAZOLE 20 MG CAPSULE.DR PO SCH ×2 (07:30→21:37)
[2017-08-17] MEDS: LORATADINE 10 MG TABLET PO SCH (07:30)
[2017-08-17] MEDS: DILTIAZEM 240 MG CAP.ER.24H PO SCH (07:30)
[2017-08-17] MEDS: DOXYCYCLINE 100MG TABLET PO SCH ×2 (07:30→21:38)
[2017-08-17] MEDS: GABAPENTIN 100 MG CAPSULE PO SCH ×3 (07:30→21:32)
[2017-08-17] MEDS: SENNA/DOCUSATE TABLET PO SCH (07:31)
[2017-08-17] MEDS: FLUTICASONE/VILANTEROL 200-25MCG/INH INH SCH (07:31)
[2017-08-17] MEDS: INSULIN LISPRO 100 UNITS/ML, PEN SQ-INSULIN SCH ×4 (07:34→21:38)
[2017-08-17 07:37] VITALS: BP 156/94
[2017-08-17 11:22] LABS: O2 FLOW 4 L/min
[2017-08-17] MEDS: INSULIN GLARGINE 100 UNITS/ML, PEN SQ-INSULIN SCH ×2 (11:35→21:39)
[2017-08-17 13:16] VITALS: BP 154/77
[2017-08-17] MEDS: DIPHENHYDRAMINE 50 MG/ML, 1ML IVPush PRN ×2 (13:36→23:21)
[2017-08-17] MEDS: TERAZOSIN 2MG CAPSULE PO SCH (21:32)
[2017-08-17 21:46] VITALS: BP 147/84
[2017-08-18 01:52] VITALS: BP 167/98
[2017-08-18 02:30] VITALS: BP 147/87
[2017-08-18] MEDS: NICOTINE 7 MG/24 HR PATCH.TD24 TD SCH (05:33)
[2017-08-18] MEDS: GUAIFENESIN 200 MG TABLET PO SCH ×2 (05:33→16:39)
[2017-08-18] MEDS: methylPREDNISolone SOD SUCC 125 MG/2 ML IVPush SCH ×4 (05:33→22:48)
[2017-08-18] MEDS: HEPARIN 5,000 UNITS/ML, 1ML SQ SCH ×3 (05:33→20:52)
[2017-08-18 06:05] LABS: CHLORIDE 98 mmol/L (98-107)
[2017-08-18 06:25] LABS: ANION GAP 7 mmol/L (5-15); CALCIUM 8.3 mg/dL (8.5-10.1); CREATININE 0.89 mg/dL (0.55-1.02)
[2017-08-18] MEDS: ALBUTEROL/IPRATROPIUM 2.5MG/0.5MG, 3 ML NPPB SCH ×4 (07:00→18:30)
[2017-08-18 07:05] VITALS: BP 162/88
[2017-08-18] MEDS: FLUTICASONE/VILANTEROL 200-25MCG/INH INH SCH (08:10)
[2017-08-18] MEDS: GABAPENTIN 100 MG CAPSULE PO SCH ×3 (08:10→21:03)
[2017-08-18] MEDS: FAMOTIDINE 20 MG TABLET PO SCH ×2 (08:10→20:51)
[2017-08-18] MEDS: OMEPRAZOLE 20 MG CAPSULE.DR PO SCH ×2 (08:11→20:51)
[2017-08-18] MEDS: DOXYCYCLINE 100MG TABLET PO SCH ×2 (08:11→20:51)
[2017-08-18] MEDS: LORATADINE 10 MG TABLET PO SCH (08:11)
[2017-08-18] MEDS: DILTIAZEM 240 MG CAP.ER.24H PO SCH (08:11)
[2017-08-18] MEDS: OXYcodone IR 5MG TABLET PO PRN ×5 (08:11→20:51)
[2017-08-18] MEDS: SENNA/DOCUSATE TABLET PO SCH (08:12)
[2017-08-18] MEDS: INSULIN LISPRO 100 UNITS/ML, PEN SQ-INSULIN SCH ×4 (08:20→21:04)
[2017-08-18] MEDS: INSULIN GLARGINE 100 UNITS/ML, PEN SQ-INSULIN SCH ×2 (08:20→21:04)
[2017-08-18 12:48] VITALS: BP 143/77
[2017-08-18] MEDS: DIPHENHYDRAMINE 50 MG/ML, 1ML IVPush PRN ×2 (13:47→21:03)
[2017-08-18 20:43] VITALS: BP 155/85
[2017-08-18] MEDS: TERAZOSIN 2MG CAPSULE PO SCH (20:51)
[2017-08-18] MEDS: MONTELUKAST 5 MG TAB.CHEW PO SCH (20:51)
[2017-08-19 03:23] VITALS: BP 164/88
[2017-08-19] MEDS: HEPARIN 5,000 UNITS/ML, 1ML SQ SCH ×3 (05:26→21:06)
[2017-08-19] MEDS: NICOTINE 7 MG/24 HR PATCH.TD24 TD SCH (05:27)
[2017-08-19] MEDS: methylPREDNISolone SOD SUCC 125 MG/2 ML IVPush SCH ×2 (05:27→09:53)
[2017-08-19] MEDS: GUAIFENESIN 200 MG TABLET PO SCH ×2 (05:27→15:56)
[2017-08-19] MEDS: OXYcodone IR 5MG TABLET PO PRN ×4 (05:27→21:03)
[2017-08-19 06:10] LABS: ANION GAP 9 mmol/L (5-15); CALCIUM 8.1 mg/dL (8.5-10.1); CHLORIDE 97 mmol/L (98-107)
[2017-08-19 06:11] LABS: CREATININE 0.84 mg/dL (0.55-1.02)
[2017-08-19] MEDS: DIPHENHYDRAMINE 50 MG/ML, 1ML IVPush PRN ×2 (06:26→23:02)
[2017-08-19] MEDS: ALBUTEROL/IPRATROPIUM 2.5MG/0.5MG, 3 ML NPPB SCH ×4 (06:40→19:49)
[2017-08-19 07:15] VITALS: BP 159/90
[2017-08-19] MEDS: SENNA/DOCUSATE TABLET PO SCH (09:00)
[2017-08-19] MEDS: INSULIN LISPRO 100 UNITS/ML, PEN SQ-INSULIN SCH ×4 (09:23→21:06)
[2017-08-19] MEDS: OMEPRAZOLE 20 MG CAPSULE.DR PO SCH ×2 (09:24→21:04)
[2017-08-19] MEDS: FLUTICASONE/VILANTEROL 200-25MCG/INH INH SCH (09:24)
[2017-08-19] MEDS: GABAPENTIN 100 MG CAPSULE PO SCH ×3 (09:24→21:03)
[2017-08-19] MEDS: DILTIAZEM 240 MG CAP.ER.24H PO SCH (09:24)
[2017-08-19] MEDS: INSULIN GLARGINE 100 UNITS/ML, PEN SQ-INSULIN SCH ×2 (09:24→21:06)
[2017-08-19] MEDS: FAMOTIDINE 20 MG TABLET PO SCH ×2 (09:24→21:03)
[2017-08-19] MEDS: DOXYCYCLINE 100MG TABLET PO SCH ×2 (09:25→21:04)
[2017-08-19] MEDS: LORATADINE 10 MG TABLET PO SCH (09:25)
[2017-08-19 12:55] VITALS: BP 144/72
[2017-08-19 20:14] VITALS: BP 147/82
[2017-08-19] MEDS: MONTELUKAST 5 MG TAB.CHEW PO SCH (21:00)
[2017-08-19] MEDS: TERAZOSIN 2MG CAPSULE PO SCH (21:04)
[2017-08-20] MEDS ORDERED: MAGNESIUM SULFATE PMX 4GM/100M 100 ML IVPB ONE (01:30)
[2017-08-20 03:48] VITALS: BP 171/92
[2017-08-20 04:24] VITALS: BP 159/90
[2017-08-20] MEDS: NICOTINE 7 MG/24 HR PATCH.TD24 TD SCH (04:26)
[2017-08-20] MEDS: HEPARIN 5,000 UNITS/ML, 1ML SQ SCH ×2 (04:28→15:09)
[2017-08-20] MEDS: GUAIFENESIN 200 MG TABLET PO SCH ×2 (04:29→17:19)
[2017-08-20] MEDS: OXYcodone IR 5MG TABLET PO PRN ×3 (06:25→20:27)
[2017-08-20] MEDS: ALBUTEROL/IPRATROPIUM 2.5MG/0.5MG, 3 ML NPPB SCH ×4 (06:30→20:00)
[2017-08-20 07:55] VITALS: BP 167/89
[2017-08-20] MEDS: INSULIN GLARGINE 100 UNITS/ML, PEN SQ-INSULIN SCH ×2 (08:58→20:28)
[2017-08-20] MEDS: INSULIN LISPRO 100 UNITS/ML, PEN SQ-INSULIN SCH ×4 (08:58→20:28)
[2017-08-20] MEDS: SENNA/DOCUSATE TABLET PO SCH (09:00)
[2017-08-20] MEDS: FLUTICASONE/VILANTEROL 200-25MCG/INH INH SCH (09:00)
[2017-08-20] MEDS: DILTIAZEM 240 MG CAP.ER.24H PO SCH (09:01)
[2017-08-20] MEDS: GABAPENTIN 100 MG CAPSULE PO SCH ×3 (09:01→20:27)
[2017-08-20] MEDS: FAMOTIDINE 20 MG TABLET PO SCH ×2 (09:01→20:27)
[2017-08-20] MEDS: DOXYCYCLINE 100MG TABLET PO SCH ×2 (09:02→20:27)
[2017-08-20] MEDS: OMEPRAZOLE 20 MG CAPSULE.DR PO SCH ×2 (09:02→20:27)
[2017-08-20] MEDS: LORATADINE 10 MG TABLET PO SCH (09:02)
[2017-08-20] MEDS: DIPHENHYDRAMINE 50 MG/ML, 1ML IVPush PRN ×2 (09:11→17:32)
[2017-08-20 13:38] VITALS: BP 160/82
[2017-08-20 19:46] VITALS: BP 166/93
[2017-08-20] MEDS: TERAZOSIN 2MG CAPSULE PO SCH (20:27)
[2017-08-20] MEDS: MONTELUKAST 5 MG TAB.CHEW PO SCH (20:28)
[2017-08-21] MEDS: HEPARIN 5,000 UNITS/ML, 1ML SQ SCH ×3 (00:36→16:36)
[2017-08-21] MEDS: OXYcodone IR 5MG TABLET PO PRN ×5 (00:36→21:19)
[2017-08-21 00:39] VITALS: BP 154/92
[2017-08-21] MEDS: NICOTINE 7 MG/24 HR PATCH.TD24 TD SCH (05:45)
[2017-08-21] MEDS: GUAIFENESIN 200 MG TABLET PO SCH ×2 (05:46→16:35)
[2017-08-21] MEDS: ALBUTEROL/IPRATROPIUM 2.5MG/0.5MG, 3 ML NPPB SCH ×4 (07:00→20:09)
[2017-08-21 07:50] VITALS: BP 148/76
[2017-08-21] MEDS: OMEPRAZOLE 20 MG CAPSULE.DR PO SCH ×2 (08:50→21:35)
[2017-08-21] MEDS: INSULIN LISPRO 100 UNITS/ML, PEN SQ-INSULIN SCH ×4 (08:50→21:21)
[2017-08-21] MEDS: LORATADINE 10 MG TABLET PO SCH (08:50)
[2017-08-21] MEDS: FLUTICASONE/VILANTEROL 200-25MCG/INH INH SCH (08:50)
[2017-08-21] MEDS: DILTIAZEM 240 MG CAP.ER.24H PO SCH (08:51)
[2017-08-21] MEDS: DOXYCYCLINE 100MG TABLET PO SCH ×2 (08:51→21:18)
[2017-08-21] MEDS: SENNA/DOCUSATE TABLET PO SCH (08:51)
[2017-08-21] MEDS: GABAPENTIN 100 MG CAPSULE PO SCH ×3 (08:51→21:18)
[2017-08-21] MEDS: FAMOTIDINE 20 MG TABLET PO SCH ×2 (08:51→21:18)
[2017-08-21] MEDS: INSULIN GLARGINE 100 UNITS/ML, PEN SQ-INSULIN SCH ×2 (08:52→21:20)
[2017-08-21 12:46] VITALS: BP 147/85
[2017-08-21 19:19] VITALS: BP 144/82
[2017-08-21] MEDS: MONTELUKAST 5 MG TAB.CHEW PO SCH (21:19)
[2017-08-21] MEDS: TERAZOSIN 2MG CAPSULE PO SCH (21:19)
[2017-08-21] MEDS: DIPHENHYDRAMINE 50 MG/ML, 1ML IVPush PRN (21:35)
[2017-08-22 02:00] VITALS: BP 162/88
[2017-08-22] MEDS: HEPARIN 5,000 UNITS/ML, 1ML SQ SCH ×3 (02:17→17:10)
[2017-08-22] MEDS: OXYcodone IR 5MG TABLET PO PRN ×4 (02:39→21:41)
[2017-08-22 03:20] VITALS: BP 136/79
[2017-08-22] MEDS ORDERED: DILTIAZEM 125 MG in SODIUM CHLORIDE 0.9% 100 ML IV ONE (04:00)
[2017-08-22] MEDS: ALBUTEROL/IPRATROPIUM 2.5MG/0.5MG, 3 ML NPPB PRN (04:29)
[2017-08-22] MEDS: NICOTINE 7 MG/24 HR PATCH.TD24 TD SCH (05:36)
[2017-08-22] MEDS: GUAIFENESIN 200 MG TABLET PO SCH ×2 (05:36→17:07)
[2017-08-22 07:47] VITALS: BP 110/72
[2017-08-22] MEDS: ALBUTEROL/IPRATROPIUM 2.5MG/0.5MG, 3 ML NPPB SCH ×2 (08:20→19:01)
[2017-08-22] MEDS: FAMOTIDINE 20 MG TABLET PO SCH ×2 (08:51→21:41)
[2017-08-22] MEDS: DOXYCYCLINE 100MG TABLET PO SCH ×2 (08:51→21:41)
[2017-08-22] MEDS: GABAPENTIN 100 MG CAPSULE PO SCH ×3 (08:51→21:40)
[2017-08-22] MEDS: OMEPRAZOLE 20 MG CAPSULE.DR PO SCH ×2 (08:51→21:40)
[2017-08-22] MEDS: LORATADINE 10 MG TABLET PO SCH (08:51)
[2017-08-22] MEDS: DILTIAZEM 240 MG CAP.ER.24H PO SCH (08:51)
[2017-08-22] MEDS: INSULIN LISPRO 100 UNITS/ML, PEN SQ-INSULIN SCH ×4 (08:52→21:42)
[2017-08-22] MEDS: FLUTICASONE/VILANTEROL 200-25MCG/INH INH SCH (08:52)
[2017-08-22] MEDS: SENNA/DOCUSATE TABLET PO SCH (08:53)
[2017-08-22] MEDS: INSULIN GLARGINE 100 UNITS/ML, PEN SQ-INSULIN SCH ×2 (08:53→21:43)
[2017-08-22 10:58] LABS: BASOPHILS # (AUTO) 0.05 x10^3/uL (0-0.1); BASOPHILS % (AUTO) 0 % (0-1); EOSINOPHILS # (AUTO) 0.04 x10^3/uL (0-0.4); EOSINOPHILS % (AUTO) 0 % (1-7); LYMPHOCYTES # (AUTO) 1.65 x10^3/uL (1-3.4); LYMPHOCYTES % (AUTO) 12 % (22-44); MD NO; MEAN CORPUSCULAR HEMOGLOBIN 32.3 pg (27.0-34.8); MEAN CORPUSCULAR HGB CONC 33.4 g/dL (32.4-35.8); MEAN CORPUSCULAR VOLUME 96.5 fL (80-100); MEAN PLATELET VOLUME 7.4 fL (7.4-10.4); MONOCYTES # (AUTO) 0.78 x10^3/uL (0.2-0.8); MONOCYTES % (AUTO) 6 % (2-9); NEUTROPHILS # (AUTO) 11.03 x10^3/uL (1.8-6.8); NEUTROPHILS % (AUTO) 81 % (42-75); PLATELET COUNT 208 x10^3/uL (130-400); RED BLOOD COUNT 4.02 x10^6/uL (3.82-5.3); RED CELL DISTRIBUTION WIDTH 15.3 % (9.6-15.2)
[2017-08-22 11:09] LABS: ANION GAP 4 mmol/L (5-15); CALCIUM 8.7 mg/dL (8.5-10.1); CHLORIDE 97 mmol/L (98-107)
[2017-08-22 11:20] LABS: CREATININE 0.81 mg/dL (0.55-1.02)
[2017-08-22 13:17] VITALS: BP 114/78
[2017-08-22] MEDS ORDERED: MAGNESIUM SULFATE PMX 2GM/50ML 50 ML IV ONE ×2 (14:00→18:00)
[2017-08-22] MEDS: DIPHENHYDRAMINE 50 MG/ML, 1ML IVPush PRN ×2 (14:01→22:18)
[2017-08-22] MEDS: METOPROLOL TARTRATE 25 MG TABLET PO SCH (17:07)
[2017-08-22 17:12] VITALS: BP 113/75
[2017-08-22 17:58] LABS: AMPHETAMINE SCREEN, URINE Negative (Negative); BARBITURATE SCREEN, URINE Negative (Negative); BENZODIAZEPINE SCREEN, URINE Negative (Negative); CANNABINOID SCREEN, URINE Negative (Negative); COCAINE SCREEN, URINE Negative (Negative); METHADONE SCREEN, URINE Negative (Negative); OPIATE SCREEN, URINE Positive (Negative)
[2017-08-22] MEDS ORDERED: DIGOXIN 0.25 MG/ML, 2ML IVPush ONE (18:00)
[2017-08-22] MEDS ORDERED: DILTIAZEM 5 MG/ML, 5ML IVPush ONE (19:30)
[2017-08-22 20:53] VITALS: BP 128/79
[2017-08-22] MEDS: MONTELUKAST 5 MG TAB.CHEW PO SCH (21:41)
[2017-08-22] MEDS: TERAZOSIN 2MG CAPSULE PO SCH (21:41)
[2017-08-23] MEDS: ACETAMINOPHEN 325 MG TABLET PO PRN ×2 (00:09→20:34)
[2017-08-23] MEDS: HEPARIN 5,000 UNITS/ML, 1ML SQ SCH ×3 (01:54→17:08)
[2017-08-23] MEDS: OXYcodone IR 5MG TABLET PO PRN ×4 (02:18→20:53)
[2017-08-23 02:59] VITALS: BP 129/75
[2017-08-23 04:37] LABS: BASOPHILS # (AUTO) 0.04 x10^3/uL (0-0.1); BASOPHILS % (AUTO) 0 % (0-1); EOSINOPHILS # (AUTO) 0.03 x10^3/uL (0-0.4); EOSINOPHILS % (AUTO) 0 % (1-7); LYMPHOCYTES # (AUTO) 1.56 x10^3/uL (1-3.4); LYMPHOCYTES % (AUTO) 17 % (22-44); MD NO; MEAN CORPUSCULAR HEMOGLOBIN 32.7 pg (27.0-34.8); MEAN CORPUSCULAR HGB CONC 33.7 g/dL (32.4-35.8); MEAN PLATELET VOLUME 7.4 fL (7.4-10.4); MONOCYTES # (AUTO) 0.54 x10^3/uL (0.2-0.8); MONOCYTES % (AUTO) 6 % (2-9); NEUTROPHILS % (AUTO) 76 % (42-75); PLATELET COUNT 192 x10^3/uL (130-400); RED BLOOD COUNT 3.72 x10^6/uL (3.82-5.3); RED CELL DISTRIBUTION WIDTH 15.6 % (9.6-15.2)
[2017-08-23 04:50] LABS: ANION GAP 4 mmol/L (5-15); CALCIUM 8.4 mg/dL (8.5-10.1); CHLORIDE 97 mmol/L (98-107)
[2017-08-23] MEDS: GUAIFENESIN 200 MG TABLET PO SCH ×2 (05:53→17:07)
[2017-08-23] MEDS: METOPROLOL TARTRATE 25 MG TABLET PO SCH ×2 (05:53→17:07)
[2017-08-23] MEDS: NICOTINE 7 MG/24 HR PATCH.TD24 TD SCH (05:53)
[2017-08-23 05:55] VITALS: BP 133/80
[2017-08-23] MEDS: DIPHENHYDRAMINE 50 MG/ML, 1ML IVPush PRN ×2 (05:57→20:34)
[2017-08-23] MEDS: INSULIN LISPRO 100 UNITS/ML, PEN SQ-INSULIN SCH ×4 (07:00→20:53)
[2017-08-23 07:46] VITALS: BP 116/75
[2017-08-23] MEDS: SENNA/DOCUSATE TABLET PO SCH (08:54)
[2017-08-23] MEDS: DOXYCYCLINE 100MG TABLET PO SCH (09:00)
[2017-08-23] MEDS: LORATADINE 10 MG TABLET PO SCH (09:35)
[2017-08-23] MEDS: GABAPENTIN 100 MG CAPSULE PO SCH ×3 (09:35→20:34)
[2017-08-23] MEDS: OMEPRAZOLE 20 MG CAPSULE.DR PO SCH ×2 (09:35→20:35)
[2017-08-23] MEDS: FAMOTIDINE 20 MG TABLET PO SCH ×2 (09:35→20:34)
[2017-08-23] MEDS: INSULIN GLARGINE 100 UNITS/ML, PEN SQ-INSULIN SCH ×2 (09:36→20:53)
[2017-08-23] MEDS: FLUTICASONE/VILANTEROL 200-25MCG/INH INH SCH (09:49)
[2017-08-23] MEDS ORDERED: FUROSEMIDE 40 MG/4 ML IV ONE (10:00)
[2017-08-23] MEDS: ALBUTEROL/IPRATROPIUM 2.5MG/0.5MG, 3 ML NPPB SCH ×2 (12:30→15:09)
[2017-08-23 15:00] VITALS: BP 132/80
[2017-08-23] MEDS: POTASSIUM CHLORIDE 20 MEQ TAB.ER.PRT PO SCH (17:07)
[2017-08-23 18:41] VITALS: BP 125/78
[2017-08-23] MEDS: TERAZOSIN 2MG CAPSULE PO SCH (20:33)
[2017-08-23] MEDS: MONTELUKAST 5 MG TAB.CHEW PO SCH (20:35)
[2017-08-24] MEDS: HEPARIN 5,000 UNITS/ML, 1ML SQ SCH ×3 (01:53→16:57)
[2017-08-24] MEDS: OXYcodone IR 5MG TABLET PO PRN ×3 (01:55→23:12)
[2017-08-24 02:00] VITALS: BP 143/93
[2017-08-24] MEDS: GUAIFENESIN 200 MG TABLET PO SCH ×2 (06:20→17:16)
[2017-08-24] MEDS: NICOTINE 7 MG/24 HR PATCH.TD24 TD SCH (06:20)
[2017-08-24] MEDS: METOPROLOL TARTRATE 25 MG TABLET PO SCH ×2 (06:21→17:16)
[2017-08-24 08:00] VITALS: BP 145/90
[2017-08-24] MEDS: FLUTICASONE/VILANTEROL 200-25MCG/INH INH SCH (08:52)
[2017-08-24] MEDS: INSULIN LISPRO 100 UNITS/ML, PEN SQ-INSULIN SCH ×4 (08:53→22:35)
[2017-08-24] MEDS: INSULIN GLARGINE 100 UNITS/ML, PEN SQ-INSULIN SCH ×2 (08:53→22:34)
[2017-08-24] MEDS: GABAPENTIN 100 MG CAPSULE PO SCH ×3 (08:53→22:33)
[2017-08-24] MEDS: LORATADINE 10 MG TABLET PO SCH (08:54)
[2017-08-24] MEDS: SENNA/DOCUSATE TABLET PO SCH (08:54)
[2017-08-24] MEDS: OMEPRAZOLE 20 MG CAPSULE.DR PO SCH ×2 (08:54→22:33)
[2017-08-24] MEDS: FAMOTIDINE 20 MG TABLET PO SCH (08:54)
[2017-08-24] MEDS: POTASSIUM CHLORIDE 20 MEQ TAB.ER.PRT PO SCH ×2 (08:55→17:16)
[2017-08-24] MEDS: ALBUTEROL/IPRATROPIUM 2.5MG/0.5MG, 3 ML NPPB SCH ×4 (09:00→20:11)
[2017-08-24] MEDS ORDERED: FUROSEMIDE 40 MG/4 ML IV ONE (10:30)
[2017-08-24 10:53] LABS: BASOPHILS # (AUTO) 0.03 x10^3/uL (0-0.1); BASOPHILS % (AUTO) 0 % (0-1); EOSINOPHILS # (AUTO) 0.03 x10^3/uL (0-0.4); EOSINOPHILS % (AUTO) 0 % (1-7); LYMPHOCYTES # (AUTO) 1.15 x10^3/uL (1-3.4); LYMPHOCYTES % (AUTO) 13 % (22-44); MD NO; MEAN CORPUSCULAR HEMOGLOBIN 32.7 pg (27.0-34.8); MEAN CORPUSCULAR HGB CONC 33.6 g/dL (32.4-35.8); MEAN CORPUSCULAR VOLUME 97.3 fL (80-100); MEAN PLATELET VOLUME 7.4 fL (7.4-10.4); MONOCYTES # (AUTO) 0.48 x10^3/uL (0.2-0.8); MONOCYTES % (AUTO) 5 % (2-9); NEUTROPHILS # (AUTO) 7.25 x10^3/uL (1.8-6.8); NEUTROPHILS % (AUTO) 81 % (42-75); PLATELET COUNT 173 x10^3/uL (130-400); RED BLOOD COUNT 3.77 x10^6/uL (3.82-5.3); RED CELL DISTRIBUTION WIDTH 15.9 % (9.6-15.2)
[2017-08-24] MEDS ORDERED: ALBUMIN HUMAN 25% 100 ML IV ONE (11:00)
[2017-08-24 11:05] LABS: ALANINE AMINOTRANSFERASE 47 U/L (12-78); CHLORIDE 94 mmol/L (98-107)
[2017-08-24 11:07] LABS: ALKALINE PHOSPHATASE 53 U/L (45-117); BILIRUBIN,TOTAL 0.4 mg/dL (0.2-1.0); TOTAL PROTEIN 5.8 g/dL (6.4-8.2)
[2017-08-24 11:40] LABS: CREATININE 0.72 mg/dL (0.55-1.02)
[2017-08-24 11:48] LABS: ANION GAP 2 mmol/L (5-15)
[2017-08-24] MEDS: LOSARTAN 50MG TABLET PO SCH (13:12)
[2017-08-24] MEDS: HYDROCHLOROTHIAZIDE 25 MG TABLET PO SCH (13:12)
[2017-08-24] MEDS: ACETAMINOPHEN 325 MG TABLET PO PRN (13:17)
[2017-08-24] MEDS ORDERED: MAGNESIUM SULFATE 4 GM in STERILE WATER 42 ML IV ONE (14:00)
[2017-08-24] MEDS ORDERED: FUROSEMIDE 40 MG/4 ML ONE (15:14)
[2017-08-24 16:08] VITALS: BP 132/85
[2017-08-24 20:40] VITALS: BP 137/85
[2017-08-24] MEDS: TERAZOSIN 2MG CAPSULE PO SCH (22:33)
[2017-08-24] MEDS: MONTELUKAST 5 MG TAB.CHEW PO SCH (22:35)
[2017-08-25] MEDS: HEPARIN 5,000 UNITS/ML, 1ML SQ SCH ×3 (01:11→16:59)
[2017-08-25 01:17] VITALS: BP 131/82
[2017-08-25 05:45] LABS: ALANINE AMINOTRANSFERASE 49 U/L (12-78); ALBUMIN 3.1 g/dL (3.4-5.0); ANION GAP 6 mmol/L (5-15); CALCIUM 8.7 mg/dL (8.5-10.1); CHLORIDE 94 mmol/L (98-107); CREATININE 0.66 mg/dL (0.55-1.02)
[2017-08-25 05:48] LABS: ALKALINE PHOSPHATASE 50 U/L (45-117); BILIRUBIN,TOTAL 0.4 mg/dL (0.2-1.0)
[2017-08-25 05:52] LABS: BASOPHILS # (AUTO) 0.05 x10^3/uL (0-0.1); BASOPHILS % (AUTO) 1 % (0-1); EOSINOPHILS # (AUTO) 0.06 x10^3/uL (0-0.4); EOSINOPHILS % (AUTO) 1 % (1-7); LYMPHOCYTES # (AUTO) 1.59 x10^3/uL (1-3.4); LYMPHOCYTES % (AUTO) 19 % (22-44); MD NO; MEAN CORPUSCULAR HEMOGLOBIN 32.9 pg (27.0-34.8); MEAN CORPUSCULAR HGB CONC 34.3 g/dL (32.4-35.8); MEAN PLATELET VOLUME 7.2 fL (7.4-10.4); MONOCYTES # (AUTO) 0.44 x10^3/uL (0.2-0.8); MONOCYTES % (AUTO) 5 % (2-9); NEUTROPHILS # (AUTO) 6.14 x10^3/uL (1.8-6.8); NEUTROPHILS % (AUTO) 74 % (42-75); PLATELET COUNT 170 x10^3/uL (130-400); RED BLOOD COUNT 3.71 x10^6/uL (3.82-5.3); RED CELL DISTRIBUTION WIDTH 15.4 % (9.6-15.2)
[2017-08-25] MEDS: GUAIFENESIN 200 MG TABLET PO SCH ×2 (06:27→17:01)
[2017-08-25] MEDS: NICOTINE 7 MG/24 HR PATCH.TD24 TD SCH (06:27)
[2017-08-25] MEDS: METOPROLOL TARTRATE 25 MG TABLET PO SCH ×2 (06:28→16:59)
[2017-08-25] MEDS: OXYcodone IR 5MG TABLET PO PRN ×3 (06:39→22:03)
[2017-08-25 06:57] VITALS: BP 125/77
[2017-08-25] MEDS: INSULIN LISPRO 100 UNITS/ML, PEN SQ-INSULIN SCH ×4 (08:06→22:05)
[2017-08-25] MEDS: INSULIN GLARGINE 100 UNITS/ML, PEN SQ-INSULIN SCH ×2 (08:06→22:05)
[2017-08-25] MEDS: FLUTICASONE/VILANTEROL 200-25MCG/INH INH SCH (08:06)
[2017-08-25] MEDS: LORATADINE 10 MG TABLET PO SCH (08:06)
[2017-08-25] MEDS: GABAPENTIN 100 MG CAPSULE PO SCH ×3 (08:07→22:15)
[2017-08-25] MEDS: SENNA/DOCUSATE TABLET PO SCH (08:07)
[2017-08-25] MEDS: LOSARTAN 50MG TABLET PO SCH (08:07)
[2017-08-25] MEDS: OMEPRAZOLE 20 MG CAPSULE.DR PO SCH ×2 (08:07→22:02)
[2017-08-25] MEDS: HYDROCHLOROTHIAZIDE 25 MG TABLET PO SCH (08:07)
[2017-08-25] MEDS: FUROSEMIDE 40 MG/4 ML IV SCH ×2 (12:24→17:01)
[2017-08-25 12:31] VITALS: BP 111/72
[2017-08-25] MEDS: ACETAMINOPHEN 325 MG TABLET PO PRN (13:58)
[2017-08-25 18:06] LABS: AMPHETAMINE SCREEN, URINE Negative (Negative); BARBITURATE SCREEN, URINE Negative (Negative); BENZODIAZEPINE SCREEN, URINE Negative (Negative); CANNABINOID SCREEN, URINE Negative (Negative); COCAINE SCREEN, URINE Negative (Negative); METHADONE SCREEN, URINE Negative (Negative); OPIATE SCREEN, URINE Negative (Negative)
[2017-08-25 19:17] VITALS: BP 103/62
[2017-08-25] MEDS: ALBUTEROL/IPRATROPIUM 2.5MG/0.5MG, 3 ML NPPB SCH (20:11)
[2017-08-25] MEDS: TERAZOSIN 2MG CAPSULE PO SCH (22:02)
[2017-08-25] MEDS: MONTELUKAST 5 MG TAB.CHEW PO SCH (22:03)
[2017-08-26 00:40] VITALS: BP 98/62
[2017-08-26] MEDS: HEPARIN 5,000 UNITS/ML, 1ML SQ SCH ×3 (02:57→17:32)
[2017-08-26] MEDS: OXYcodone IR 5MG TABLET PO PRN ×2 (03:00→20:44)
[2017-08-26 05:22] LABS: BASOPHILS # (AUTO) 0.02 x10^3/uL (0-0.1); BASOPHILS % (AUTO) 0 % (0-1); EOSINOPHILS # (AUTO) 0.03 x10^3/uL (0-0.4); EOSINOPHILS % (AUTO) 0 % (1-7); LYMPHOCYTES % (AUTO) 18 % (22-44); MD NO; MEAN CORPUSCULAR HEMOGLOBIN 32.4 pg (27.0-34.8); MEAN CORPUSCULAR HGB CONC 33.5 g/dL (32.4-35.8); MEAN CORPUSCULAR VOLUME 96.7 fL (80-100); MEAN PLATELET VOLUME 7.9 fL (7.4-10.4); MONOCYTES # (AUTO) 0.66 x10^3/uL (0.2-0.8); MONOCYTES % (AUTO) 7 % (2-9); NEUTROPHILS # (AUTO) 6.63 x10^3/uL (1.8-6.8); NEUTROPHILS % (AUTO) 74 % (42-75); PLATELET COUNT 183 x10^3/uL (130-400); RED BLOOD COUNT 3.72 x10^6/uL (3.82-5.3); RED CELL DISTRIBUTION WIDTH 15.8 % (9.6-15.2)
[2017-08-26 05:32] LABS: ALBUMIN 2.9 g/dL (3.4-5.0); ANION GAP 4 mmol/L (5-15); CALCIUM 8.4 mg/dL (8.5-10.1); CHLORIDE 93 mmol/L (98-107)
[2017-08-26 05:35] LABS: ALANINE AMINOTRANSFERASE 49 U/L (12-78); ALKALINE PHOSPHATASE 57 U/L (45-117); BILIRUBIN,TOTAL 0.4 mg/dL (0.2-1.0); CREATININE 0.89 mg/dL (0.55-1.02); TOTAL PROTEIN 5.8 g/dL (6.4-8.2)
[2017-08-26] MEDS: NICOTINE 7 MG/24 HR PATCH.TD24 TD SCH (06:09)
[2017-08-26] MEDS: GUAIFENESIN 200 MG TABLET PO SCH ×2 (06:14→17:31)
[2017-08-26] MEDS: METOPROLOL TARTRATE 25 MG TABLET PO SCH ×2 (06:14→17:31)
[2017-08-26 07:37] VITALS: BP 100/65
[2017-08-26] MEDS: ALBUTEROL/IPRATROPIUM 2.5MG/0.5MG, 3 ML NPPB SCH ×2 (07:41→20:42)
[2017-08-26] MEDS: FUROSEMIDE 40 MG/4 ML IV SCH ×2 (08:01→17:32)
[2017-08-26] MEDS: OMEPRAZOLE 20 MG CAPSULE.DR PO SCH ×2 (08:01→20:33)
[2017-08-26] MEDS: LORATADINE 10 MG TABLET PO SCH (08:01)
[2017-08-26] MEDS: SENNA/DOCUSATE TABLET PO SCH (08:02)
[2017-08-26] MEDS: LOSARTAN 50MG TABLET PO SCH (08:02)
[2017-08-26] MEDS: HYDROCHLOROTHIAZIDE 25 MG TABLET PO SCH (08:02)
[2017-08-26] MEDS: GABAPENTIN 100 MG CAPSULE PO SCH ×3 (08:02→20:33)
[2017-08-26] MEDS: FLUTICASONE/VILANTEROL 200-25MCG/INH INH SCH (08:02)
[2017-08-26] MEDS: INSULIN LISPRO 100 UNITS/ML, PEN SQ-INSULIN SCH ×4 (08:03→20:37)
[2017-08-26] MEDS: INSULIN GLARGINE 100 UNITS/ML, PEN SQ-INSULIN SCH ×2 (08:04→20:36)
[2017-08-26] MEDS ORDERED: MAGNESIUM SULFATE IN WATER 50 ML IV ONE (08:30)
[2017-08-26 13:12] VITALS: BP 99/65
[2017-08-26] MEDS: TERAZOSIN 2MG CAPSULE PO SCH (20:31)
[2017-08-26] MEDS: MONTELUKAST 5 MG TAB.CHEW PO SCH (20:34)
[2017-08-26 20:37] VITALS: BP 109/74
[2017-08-27 01:04] VITALS: BP 100/66
[2017-08-27] MEDS: HEPARIN 5,000 UNITS/ML, 1ML SQ SCH ×2 (01:38→09:00)
[2017-08-27] MEDS: OXYcodone IR 5MG TABLET PO PRN (01:38)
[2017-08-27 05:43] LABS: BASOPHILS # (AUTO) 0.03 x10^3/uL (0-0.1); BASOPHILS % (AUTO) 0 % (0-1); EOSINOPHILS # (AUTO) 0.03 x10^3/uL (0-0.4); EOSINOPHILS % (AUTO) 0 % (1-7); LYMPHOCYTES # (AUTO) 1.47 x10^3/uL (1-3.4); LYMPHOCYTES % (AUTO) 17 % (22-44); MD NO; MEAN CORPUSCULAR HEMOGLOBIN 32.5 pg (27.0-34.8); MEAN CORPUSCULAR HGB CONC 33.9 g/dL (32.4-35.8); MEAN CORPUSCULAR VOLUME 95.9 fL (80-100); MEAN PLATELET VOLUME 7.6 fL (7.4-10.4); MONOCYTES # (AUTO) 0.63 x10^3/uL (0.2-0.8); MONOCYTES % (AUTO) 7 % (2-9); NEUTROPHILS # (AUTO) 6.65 x10^3/uL (1.8-6.8); NEUTROPHILS % (AUTO) 75 % (42-75); PLATELET COUNT 191 x10^3/uL (130-400); RED BLOOD COUNT 3.52 x10^6/uL (3.82-5.3); RED CELL DISTRIBUTION WIDTH 15.3 % (9.6-15.2)
[2017-08-27 05:53] LABS: ALANINE AMINOTRANSFERASE 41 U/L (12-78); ANION GAP 7 mmol/L (5-15); CALCIUM 8.5 mg/dL (8.5-10.1); CHLORIDE 94 mmol/L (98-107); CREATININE 0.69 mg/dL (0.55-1.02)
[2017-08-27 05:55] LABS: ALKALINE PHOSPHATASE 60 U/L (45-117); BILIRUBIN,TOTAL 0.1 mg/dL (0.2-1.0); TOTAL PROTEIN 5.9 g/dL (6.4-8.2)
[2017-08-27] MEDS: ACETAMINOPHEN 325 MG TABLET PO PRN (05:57)
[2017-08-27] MEDS: GUAIFENESIN 200 MG TABLET PO SCH (05:57)
[2017-08-27] MEDS: METOPROLOL TARTRATE 25 MG TABLET PO SCH (05:58)
[2017-08-27] MEDS: NICOTINE 7 MG/24 HR PATCH.TD24 TD SCH (05:58)
[2017-08-27] MEDS: ALBUTEROL/IPRATROPIUM 2.5MG/0.5MG, 3 ML NPPB SCH (07:27)
[2017-08-27 07:39] VITALS: BP 104/66
[2017-08-27] MEDS: INSULIN LISPRO 100 UNITS/ML, PEN SQ-INSULIN SCH ×2 (08:58→12:12)
[2017-08-27] MEDS: INSULIN GLARGINE 100 UNITS/ML, PEN SQ-INSULIN SCH (08:58)
[2017-08-27] MEDS: FUROSEMIDE 40 MG/4 ML IV SCH (08:59)
[2017-08-27] MEDS: LORATADINE 10 MG TABLET PO SCH (08:59)
[2017-08-27] MEDS: HYDROCHLOROTHIAZIDE 25 MG TABLET PO SCH (08:59)
[2017-08-27] MEDS: LOSARTAN 50MG TABLET PO SCH (08:59)
[2017-08-27] MEDS: OMEPRAZOLE 20 MG CAPSULE.DR PO SCH (08:59)
[2017-08-27] MEDS: SENNA/DOCUSATE TABLET PO SCH (08:59)
[2017-08-27] MEDS: GABAPENTIN 100 MG CAPSULE PO SCH (09:00)
[2017-08-27] MEDS: FLUTICASONE/VILANTEROL 200-25MCG/INH INH SCH (09:00)
[2017-08-27] MEDS ORDERED: POTASSIUM CHLORIDE 20 MEQ TAB.ER.PRT PO ONE ×2 (11:30→14:00)
[2017-08-27] MEDS ORDERED: AMOXICILLIN/CLAV 875-125MG TABLET PO SCH (11:30)
[2017-08-27] MEDS ORDERED: DOXYCYCLINE 100MG TABLET PO SCH (11:30)
[2017-08-27 13:18] VITALS: BP 100/69
[2017-08-27] MEDS ORDERED: FUROSEMIDE 40 MG/4 ML IV SCH (16:00)
== END 2017-08-27 14:03 | disposition left against medical advice (07) | DRG 682 ==
LOC: ED 23:59 → EDIP 08-15 02:03 → 4EST 08-15 02:58
PROVIDERS: ADMIT Internal Medicine; ATTEND Internal Medicine
DX: N17.0 Acute kidney failure with tubular necrosis (principal); J96.21 Acute and chronic respiratory failure with hypoxia; Z68.41 Body mass index [BMI] 40.0-44.9, adult; E66.2 Morbid (severe) obesity with alveolar hypoventilation; E87.2 Acidosis; I50.30 Unspecified diastolic (congestive) heart failure; J44.1 Chronic obstructive pulmonary disease with (acute) exacerbation; D64.9 Anemia, unspecified; Z53.21 Procedure and treatment not carried out due to patient leaving prior to being seen by health care provider; E11.9 Type 2 diabetes mellitus without complications; E78.5 Hyperlipidemia, unspecified; E86.0 Dehydration; E87.6 Hypokalemia; F10.20 Alcohol dependence, uncomplicated; F15.10 Other stimulant abuse, uncomplicated; F17.200 Nicotine dependence, unspecified, uncomplicated; I05.9 Rheumatic mitral valve disease, unspecified; I11.0 Hypertensive heart disease with heart failure; I25.10 Atherosclerotic heart disease of native coronary artery without angina pectoris; I48.91 Unspecified atrial fibrillation; K21.9 Gastro-esophageal reflux disease without esophagitis; N61.0 Mastitis without abscess; Z59.0 Homelessness; Z85.828 Personal history of other malignant neoplasm of skin; Z86.14 Personal history of Methicillin resistant Staphylococcus aureus infection; Z90.710 Acquired absence of both cervix and uterus; Z91.19 Patient's noncompliance with other medical treatment and regimen; Z99.81 Dependence on supplemental oxygen; Z88.0 Allergy status to penicillin; Z88.8 Allergy status to other drugs, medicaments and biological substances; Z79.899 Other long term (current) drug therapy; Z87.01 Personal history of pneumonia (recurrent)
CPT/HCPCS: 36415; 36600; 70450; 71045; 71275; 78582; 80048; 80053; 80061; 80307; 81001; 82040; 82803; 82962; 83036; 83605; 83735; 83880; 84100; 84439; 84443; 84484; 85025; 85610; 87040; 93005; 93306; 93922; 93970; 94640; 96361; 96365; 96375; J1644; J1940; J1956; J3475; J7620; P9047; Q9967; A9540; A9558; C9898; J0360; J1160; J1200; J1815; J2060; J2930; J7030; J7512; Q0163

== ENCOUNTER 2017-09-05 03:09 | Emergency (ER) | payer MEDICAID ==
[~2017-09-05] VITALS: Ht 170.2 cm; Wt 116.0 kg
[~2017-09-05 03:09] MED LIST changes: +DILT180T PO; +GABA300C10 PO; +INSU200I SC; +TERA2CAP3 PO
[2017-09-05] MEDS ORDERED: ALBUTEROL SULFATE 2.5 MG/3 ML NPPB ONE (03:30)
[2017-09-05] MEDS ORDERED: ALBUTEROL/IPRATROPIUM 2.5MG/0.5MG, 3 ML NPPB ONE (03:30)
[2017-09-05] MEDS ORDERED: ALBUTEROL SULFATE 2.5 MG/3 ML ONE (03:33)
[2017-09-05] MEDS ORDERED: ALBUTEROL/IPRATROPIUM 2.5MG/0.5MG, 3 ML ONE (03:45)
[2017-09-05 05:04] VITALS: BP 116/71
== END 2017-09-05 05:06 | disposition home or self-care (01) ==
LOC: ED 03:32
DX: J44.1 Chronic obstructive pulmonary disease with (acute) exacerbation (principal); E11.22 Type 2 diabetes mellitus with diabetic chronic kidney disease; N18.9 Chronic kidney disease, unspecified; I10 Essential (primary) hypertension; J44.9 Chronic obstructive pulmonary disease, unspecified; K21.9 Gastro-esophageal reflux disease without esophagitis; R60.9 Edema, unspecified; Z72.9 Problem related to lifestyle, unspecified
CPT/HCPCS: 93005; 94640; 99283; J7613; J7620

== ENCOUNTER 2017-12-15 16:05 | Emergency (ER) | payer MEDICAID ==
[~2017-12-15] VITALS: Ht 170.2 cm; Wt 109.0 kg
[2017-12-15 16:45] LABS: BASOPHILS # (AUTO) 0.07 x10^3/uL (0-0.1); BASOPHILS % (AUTO) 1 % (0-1); EOSINOPHILS % (AUTO) 1 % (1-7); LYMPHOCYTES # (AUTO) 3.44 x10^3/uL (1-3.4); LYMPHOCYTES % (AUTO) 37 % (22-44); MD NO; MEAN CORPUSCULAR HEMOGLOBIN 28.7 pg (27.0-34.8); MEAN CORPUSCULAR HGB CONC 33.3 g/dL (32.4-35.8); MEAN CORPUSCULAR VOLUME 86.3 fL (80-100); MEAN PLATELET VOLUME 7.3 fL (7.4-10.4); MONOCYTES # (AUTO) 0.43 x10^3/uL (0.2-0.8); MONOCYTES % (AUTO) 5 % (2-9); NEUTROPHILS # (AUTO) 5.29 x10^3/uL (1.8-6.8); NEUTROPHILS % (AUTO) 57 % (42-75); PLATELET COUNT 301 x10^3/uL (130-400); RED BLOOD COUNT 4.65 x10^6/uL (3.82-5.3); RED CELL DISTRIBUTION WIDTH 16.8 % (9.6-15.2)
[2017-12-15 16:56] LABS: ALBUMIN 3.2 g/dL (3.4-5.0); ANION GAP 14 mmol/L (5-15); CALCIUM 8.7 mg/dL (8.5-10.1); CHLORIDE 103 mmol/L (98-107); CREATININE 0.75 mg/dL (0.55-1.02)
[2017-12-15] MEDS ORDERED: DIGO250T PO (17:34)
[2017-12-15] MEDS ORDERED: SULF-169 PO (17:36)
[2017-12-15] MEDS ORDERED: INSU100I13 IM (17:37)
[2017-12-15] MEDS ORDERED: ACET325T21 PO (17:41)
[2017-12-15] MEDS ORDERED: ESCI10TA PO (17:43)
[2017-12-15] MEDS ORDERED: ARIP10TA15 PO (17:46)
[2017-12-15] MEDS ORDERED: FAMO20TA37 PO (17:47)
[2017-12-15] MEDS ORDERED: SENN8.6T5 PO (17:49)
[2017-12-15] MEDS ORDERED: IPRA3AMP30 INH (17:51)
[2017-12-15] MEDS ORDERED: BACITRACIN ZINC OINT 500U/GM, 0.9 GM ONE ×2 (19:00→19:01)
[2017-12-15 19:02] VITALS: BP 132/70
== END 2017-12-15 19:54 | disposition home or self-care (01) ==
LOC: ED 19:10
DX: L03.116 Cellulitis of left lower limb (principal); K21.9 Gastro-esophageal reflux disease without esophagitis; J44.9 Chronic obstructive pulmonary disease, unspecified; I10 Essential (primary) hypertension; E11.9 Type 2 diabetes mellitus without complications; Z88.0 Allergy status to penicillin
CPT/HCPCS: 36415; 80048; 82040; 85025; 99285

== ENCOUNTER 2018-01-12 05:16 | Inpatient (IN) | payer MEDICAID ==
[~2018-01-12] VITALS: Ht 170.2 cm; Wt 93.6 kg
[~2018-01-12 05:16] MED LIST changes: +ACET325T21 PO; +ARIP10TA15 PO; +DIGO250T PO; +ESCI10TA PO; +FAMO20TA37 PO; +INSU100I13 SC; +IPRA3AMP30 INH; +SENN8.6T5 PO; +SULF-169 PO
[2018-01-12] MEDS ORDERED: ASPIRIN 81 MG TABLET CHEW PO ONE (06:00)
[2018-01-12] MEDS ORDERED: SODIUM CHLORIDE 0.9% 1,000ML IVBOLUS ONE ×2 (06:00→07:00)
[2018-01-12] MEDS ORDERED: DILTIAZEM 5 MG/ML, 5ML IVPush ONE ×2 (06:00→14:30)
[2018-01-12] MEDS ORDERED: SODIUM CHLORIDE FLUSH 10ML SYR IVF ONE (06:00)
[2018-01-12] MEDS ORDERED: ASPIRIN 81 MG TABLET CHEW ONE (06:04)
[2018-01-12] MEDS ORDERED: DILTIAZEM 5 MG/ML, 5ML ONE (06:04)
[2018-01-12 06:08] LABS: BASOPHILS # (AUTO) 0.04 x10^3/uL (0-0.1); BASOPHILS % (AUTO) 0 % (0-1); EOSINOPHILS # (AUTO) 0.14 x10^3/uL (0-0.4); EOSINOPHILS % (AUTO) 2 % (1-7); LYMPHOCYTES # (AUTO) 3.07 x10^3/uL (1-3.4); LYMPHOCYTES % (AUTO) 35 % (22-44); MD NO; MEAN CORPUSCULAR HGB CONC 33.1 g/dL (32.4-35.8); MEAN CORPUSCULAR VOLUME 84.7 fL (80-100); MEAN PLATELET VOLUME 7.7 fL (7.4-10.4); MONOCYTES # (AUTO) 0.43 x10^3/uL (0.2-0.8); MONOCYTES % (AUTO) 5 % (2-9); NEUTROPHILS # (AUTO) 5.16 x10^3/uL (1.8-6.8); NEUTROPHILS % (AUTO) 58 % (42-75); PLATELET COUNT 301 x10^3/uL (130-400); RED CELL DISTRIBUTION WIDTH 16.4 % (9.6-15.2)
[2018-01-12 06:16] LABS: ALBUMIN 3.6 g/dL (3.4-5.0); ANION GAP 14 mmol/L (5-15); CALCIUM 8.4 mg/dL (8.5-10.1); CHLORIDE 104 mmol/L (98-107)
[2018-01-12 06:21] LABS: CREATININE 0.74 mg/dL (0.55-1.02); TROPONIN I < 0.015 ng/mL (0.000-0.045)
[2018-01-12 06:49] LABS: INTERNATIONAL NORMALIZED RATIO 0.97 (0.93-1.1); PROTHROMBIN TIME 10.1 Seconds (9.6-11.5)
[2018-01-12 06:57] LABS: ALANINE AMINOTRANSFERASE 39 U/L (12-78); ALBUMIN 3.5 g/dL (3.4-5.0)
[2018-01-12 06:59] LABS: ALKALINE PHOSPHATASE 95 U/L (45-117); BILIRUBIN,TOTAL 0.2 mg/dL (0.2-1.0); TOTAL PROTEIN 7.8 g/dL (6.4-8.2)
[2018-01-12 07:10] LABS: BILIRUBIN, DIRECT < 0.1 mg/dL (0.1-0.2); BILIRUBIN,INDIRECT 0.1 mg/dL (0.0-2.0)
[2018-01-12 08:16] VITALS: BP 101/75
[2018-01-12] MEDS ORDERED: LABETALOL 5MG/ML, 20ML IVPush PRN (09:00)
[2018-01-12] MEDS ORDERED: ONDANSETRON ODT 4 MG PO PRN (09:00)
[2018-01-12] MEDS ORDERED: ONDANSETRON 2MG/ML, 2ML IVPush PRN (09:00)
[2018-01-12] MEDS ORDERED: POTASSIUM CHLORIDE 20 MEQ TAB.ER.PRT PO ONE (09:00)
[2018-01-12] MEDS ORDERED: POLYETHYLENE GLYCOL 17 GM PACKET PO PRN (09:00)
[2018-01-12] MEDS ORDERED: hydrALAzine 20 MG/ML, 1ML IVPush PRN (09:00)
[2018-01-12] MEDS ORDERED: GLUCAGON 1 MG IM PRN (09:00)
[2018-01-12] MEDS ORDERED: BISACODYL 10 MG SUPP PR PRN (09:00)
[2018-01-12] MEDS ORDERED: DEXTROSE 4 GM TAB.CHEW PO PRN (09:00)
[2018-01-12] MEDS ORDERED: DEXTROSE 50%, 50ML SYRINGE IVPush PRN (09:00)
[2018-01-12] MEDS ORDERED: DOCUSATE 100 MG CAPSULE PO PRN (09:00)
[2018-01-12] MEDS ORDERED: LOSA25TA6 PO (09:07)
[2018-01-12] MEDS ORDERED: ACET325C PO (09:07)
[2018-01-12] MEDS ORDERED: METO50TA6 PO (09:07)
[2018-01-12] MEDS ORDERED: DILT240C74 PO (09:07)
[2018-01-12] MEDS ORDERED: BUDE10.22 INH (09:07)
[2018-01-12] MEDS ORDERED: RIVA20TA PO (09:07)
[2018-01-12 09:56] LABS: THYROID STIMULATING HORMONE 3.21 mIU/L (0.358-3.740)
[2018-01-12] MEDS ORDERED: MAGNESIUM SULFATE PMX 2GM/50ML 50 ML IV ONE (10:30)
[2018-01-12] MEDS: SODIUM CHLORIDE FLUSH 10ML SYR IVF SCH ×2 (10:44→21:00)
[2018-01-12] MEDS ORDERED: ALBUTEROL/IPRATROPIUM 2.5MG/0.5MG, 3 ML NPPB SCH (11:30)
[2018-01-12] MEDS ORDERED: DIGO250T12 PO (11:40)
[2018-01-12 11:51] VITALS: BP 101/72
[2018-01-12] MEDS: METOPROLOL TARTRATE 50 MG TABLET PO SCH (11:53)
[2018-01-12] MEDS: OMEPRAZOLE 20 MG CAPSULE.DR PO SCH ×2 (11:54→21:15)
[2018-01-12] MEDS: GABAPENTIN 100 MG CAPSULE PO SCH ×3 (11:54→21:15)
[2018-01-12] MEDS: ARIPIPRAZOLE 10 MG TABLET PO SCH (11:54)
[2018-01-12] MEDS: FAMOTIDINE 20 MG TABLET PO SCH ×2 (11:55→21:14)
[2018-01-12] MEDS: RIVAROXABAN 20 MG TABLET PO SCH (11:55)
[2018-01-12] MEDS: CITALOPRAM 20 MG TABLET PO SCH (11:55)
[2018-01-12] MEDS: LOSARTAN 25MG TABLET PO SCH (11:55)
[2018-01-12] MEDS: DILTIAZEM 240 MG CAP.ER.24H PO SCH (11:56)
[2018-01-12 13:03] VITALS: BP 121/81
[2018-01-12] MEDS ORDERED: DIGOXIN 0.25 MG TABLET ONE (14:10)
[2018-01-12 14:26] VITALS: BP 115/81
[2018-01-12] MEDS ORDERED: DIGOXIN 250 MCG PO SCH (14:30)
[2018-01-12] MEDS ORDERED: DIGOXIN 0.25 MG TABLET PO SCH (14:30)
[2018-01-12] MEDS: ACETAMINOPHEN 325 MG TABLET PO PRN (14:38)
[2018-01-12] MEDS ORDERED: DILTIAZEM 125 MG in SODIUM CHLORIDE 0.9% 100 ML IV SCH (15:00)
[2018-01-12 19:25] VITALS: BP 96/64
[2018-01-12] MEDS: TEMPLATE NON-FORMULARY MED. (Budesonide/Formoterol Fumarate (Symbicort 80-4.5 Mcg Inhaler) INH SCH (21:00)
[2018-01-12] MEDS: INSULIN GLARGINE 100 UNITS/ML, PEN SQ-INSULIN SCH (21:00)
[2018-01-13 00:55] VITALS: BP 119/79
[2018-01-13 05:27] LABS: BASOPHILS # (AUTO) 0.05 x10^3/uL (0-0.1); BASOPHILS % (AUTO) 1 % (0-1); EOSINOPHILS # (AUTO) 0.11 x10^3/uL (0-0.4); EOSINOPHILS % (AUTO) 2 % (1-7); LYMPHOCYTES # (AUTO) 1.78 x10^3/uL (1-3.4); LYMPHOCYTES % (AUTO) 28 % (22-44); MD NO; MEAN CORPUSCULAR HEMOGLOBIN 28.3 pg (27.0-34.8); MEAN CORPUSCULAR HGB CONC 33.5 g/dL (32.4-35.8); MEAN CORPUSCULAR VOLUME 84.3 fL (80-100); MEAN PLATELET VOLUME 7.9 fL (7.4-10.4); MONOCYTES # (AUTO) 0.44 x10^3/uL (0.2-0.8); MONOCYTES % (AUTO) 7 % (2-9); NEUTROPHILS # (AUTO) 4.04 x10^3/uL (1.8-6.8); NEUTROPHILS % (AUTO) 63 % (42-75); PLATELET COUNT 221 x10^3/uL (130-400); RED BLOOD COUNT 4.08 x10^6/uL (3.82-5.3); RED CELL DISTRIBUTION WIDTH 16.7 % (9.6-15.2)
[2018-01-13 05:47] LABS: ANION GAP 8 mmol/L (5-15); CALCIUM 8.2 mg/dL (8.5-10.1); CHLORIDE 106 mmol/L (98-107)
[2018-01-13 05:48] LABS: CREATININE 0.64 mg/dL (0.55-1.02)
[2018-01-13 06:54] VITALS: BP 139/83
[2018-01-13] MEDS: DIGOXIN 0.25 MG TABLET PO SCH (08:55)
[2018-01-13] MEDS: ARIPIPRAZOLE 10 MG TABLET PO SCH (08:56)
[2018-01-13] MEDS: RIVAROXABAN 20 MG TABLET PO SCH (08:56)
[2018-01-13] MEDS: CITALOPRAM 20 MG TABLET PO SCH (08:56)
[2018-01-13] MEDS: METOPROLOL TARTRATE 50 MG TABLET PO SCH (08:56)
[2018-01-13] MEDS: FAMOTIDINE 20 MG TABLET PO SCH (08:56)
[2018-01-13] MEDS: GABAPENTIN 100 MG CAPSULE PO SCH ×3 (08:56→21:46)
[2018-01-13] MEDS: LOSARTAN 25MG TABLET PO SCH (08:56)
[2018-01-13] MEDS: DILTIAZEM 240 MG CAP.ER.24H PO SCH (08:57)
[2018-01-13] MEDS: OMEPRAZOLE 20 MG CAPSULE.DR PO SCH ×2 (08:57→21:46)
[2018-01-13] MEDS: SODIUM CHLORIDE FLUSH 10ML SYR IVF SCH ×2 (08:57→21:45)
[2018-01-13] MEDS: TEMPLATE NON-FORMULARY MED. (Budesonide/Formoterol Fumarate (Symbicort 80-4.5 Mcg Inhaler) INH SCH (08:58)
[2018-01-13] MEDS: INSULIN GLARGINE 100 UNITS/ML, PEN SQ-INSULIN SCH ×2 (08:59→21:46)
[2018-01-13] MEDS ORDERED: DIGOXIN 250 MCG PO SCH (09:00)
[2018-01-13] MEDS: DILTIAZEM 125 MG in SODIUM CHLORIDE 0.9% 100 ML IV SCH ×2 (10:00→12:07)
[2018-01-13] MEDS: INSULIN LISPRO 100 UNITS/ML, PEN SQ-INSULIN SCH ×3 (11:00→21:46)
[2018-01-13 12:59] VITALS: BP 119/83
[2018-01-13] MEDS ORDERED: DILTIAZEM 125 MG in SODIUM CHLORIDE 0.9% 100 ML IV SCH (15:00)
[2018-01-13] MEDS ORDERED: ALBUTEROL/IPRATROPIUM 2.5MG/0.5MG, 3 ML NPPB PRN (16:30)
[2018-01-13 18:58] VITALS: BP 134/88
[2018-01-14 01:06] VITALS: BP 142/79
[2018-01-14 05:29] LABS: BASOPHILS # (AUTO) 0.02 x10^3/uL (0-0.1); BASOPHILS % (AUTO) 1 % (0-1); EOSINOPHILS # (AUTO) 0.07 x10^3/uL (0-0.4); EOSINOPHILS % (AUTO) 2 % (1-7); LYMPHOCYTES # (AUTO) 1.81 x10^3/uL (1-3.4); LYMPHOCYTES % (AUTO) 35 % (22-44); MD NO; MEAN CORPUSCULAR HEMOGLOBIN 28.1 pg (27.0-34.8); MEAN CORPUSCULAR HGB CONC 33.6 g/dL (32.4-35.8); MEAN CORPUSCULAR VOLUME 83.6 fL (80-100); MEAN PLATELET VOLUME 7.8 fL (7.4-10.4); MONOCYTES # (AUTO) 0.37 x10^3/uL (0.2-0.8); MONOCYTES % (AUTO) 7 % (2-9); NEUTROPHILS % (AUTO) 56 % (42-75); PLATELET COUNT 200 x10^3/uL (130-400); RED BLOOD COUNT 4.11 x10^6/uL (3.82-5.3); RED CELL DISTRIBUTION WIDTH 16.7 % (9.6-15.2)
[2018-01-14 05:40] LABS: ANION GAP 8 mmol/L (5-15); CALCIUM 8.5 mg/dL (8.5-10.1); CHLORIDE 102 mmol/L (98-107); CREATININE 0.49 mg/dL (0.55-1.02)
[2018-01-14] MEDS: INSULIN LISPRO 100 UNITS/ML, PEN SQ-INSULIN SCH ×4 (07:00→20:52)
[2018-01-14 07:26] VITALS: BP 147/89
[2018-01-14] MEDS ORDERED: MAGNESIUM SULFATE PMX 2GM/50ML 50 ML IV ONE (07:30)
[2018-01-14] MEDS: LOSARTAN 25MG TABLET PO SCH (08:28)
[2018-01-14] MEDS: DIGOXIN 0.25 MG TABLET PO SCH (08:28)
[2018-01-14] MEDS: RIVAROXABAN 20 MG TABLET PO SCH (08:28)
[2018-01-14] MEDS: OMEPRAZOLE 20 MG CAPSULE.DR PO SCH ×2 (08:28→20:52)
[2018-01-14] MEDS: SODIUM CHLORIDE FLUSH 10ML SYR IVF SCH ×2 (08:28→20:55)
[2018-01-14] MEDS: METOPROLOL TARTRATE 50 MG TABLET PO SCH (08:29)
[2018-01-14] MEDS: DILTIAZEM 240 MG CAP.ER.24H PO SCH (08:29)
[2018-01-14] MEDS: CITALOPRAM 20 MG TABLET PO SCH (08:29)
[2018-01-14] MEDS: GABAPENTIN 100 MG CAPSULE PO SCH ×3 (08:30→20:52)
[2018-01-14] MEDS: INSULIN GLARGINE 100 UNITS/ML, PEN SQ-INSULIN SCH ×2 (08:36→20:52)
[2018-01-14] MEDS ORDERED: FUROSEMIDE 20 MG/2 ML IV ONE (09:00)
[2018-01-14] MEDS: FLUTICASONE/VILANTEROL 100-25MCG/INH INH SCH (10:07)
[2018-01-14] MEDS: ARIPIPRAZOLE 10 MG TABLET PO SCH (10:09)
[2018-01-14 12:48] VITALS: BP 127/81
[2018-01-14 12:53] VITALS: BP 126/76
[2018-01-14 19:39] VITALS: BP 146/85
[2018-01-14 23:33] VITALS: BP 147/91
[2018-01-15 00:56] VITALS: BP 152/109
[2018-01-15 05:15] VITALS: BP 144/96
[2018-01-15] MEDS: DILTIAZEM 60 MG TABLET PO SCH ×4 (05:32→22:05)
[2018-01-15] MEDS: INSULIN LISPRO 100 UNITS/ML, PEN SQ-INSULIN SCH ×4 (07:00→22:08)
[2018-01-15 08:30] VITALS: BP 115/73
[2018-01-15] MEDS: INSULIN GLARGINE 100 UNITS/ML, PEN SQ-INSULIN SCH ×2 (09:00→22:11)
[2018-01-15] MEDS: RIVAROXABAN 20 MG TABLET PO SCH (09:00)
[2018-01-15] MEDS ORDERED: VANCOMYCIN PMX 1GM/200ML 200 ML IVPB SCH (09:30)
[2018-01-15] MEDS: SODIUM CHLORIDE FLUSH 10ML SYR IVF SCH ×2 (10:13→22:04)
[2018-01-15] MEDS: FLUTICASONE/VILANTEROL 100-25MCG/INH INH SCH (10:13)
[2018-01-15] MEDS: GABAPENTIN 100 MG CAPSULE PO SCH ×3 (10:14→22:05)
[2018-01-15] MEDS: CITALOPRAM 20 MG TABLET PO SCH (10:14)
[2018-01-15] MEDS: ARIPIPRAZOLE 10 MG TABLET PO SCH (10:14)
[2018-01-15] MEDS: LOSARTAN 25MG TABLET PO SCH (10:16)
[2018-01-15] MEDS: OMEPRAZOLE 20 MG CAPSULE.DR PO SCH ×2 (10:16→22:05)
[2018-01-15 12:13] VITALS: BP 147/82
[2018-01-15] MEDS ORDERED: CEFAZOLIN PMX 1GM/50ML 0 ML ONE (14:20)
[2018-01-15] MEDS ORDERED: MIDAZOLAM 1 MG/ML, 5ML ONE (14:20)
[2018-01-15] MEDS ORDERED: FENTANYL PF 100 MCG/2ML ONE ×2 (14:20→15:20)
[2018-01-15] MEDS ORDERED: LIDOCAINE/PF 1%, 30ML ONE (14:20)
[2018-01-15] MEDS ORDERED: CEFAZOLIN 1,000 MG ONE (14:20)
[2018-01-15] MEDS ORDERED: VANCOMYCIN PMX 1GM/200ML 200 ML ONE (14:23)
[2018-01-15] MEDS ORDERED: VANCOMYCIN 500 MG ONE (14:23)
[2018-01-15 14:31] LABS: HEMOGLOBIN A1C 7.9 % (4.2-6.3)
[2018-01-15] MEDS: SODIUM CHLORIDE 0.9% 1,000 ML IV SCH ×2 (14:38→16:28)
[2018-01-15 19:03] VITALS: BP 102/67
[2018-01-15 22:00] VITALS: BP 129/82
[2018-01-16] MEDS: SODIUM CHLORIDE 0.9% 1,000 ML IV SCH ×2 (00:40→09:02)
[2018-01-16 01:17] VITALS: BP 133/84
[2018-01-16] MEDS ORDERED: VANCOMYCIN PMX 1GM/200ML 200 ML IVPB ONE (03:00)
[2018-01-16] MEDS: ACETAMINOPHEN 325 MG TABLET PO PRN ×2 (03:13→09:00)
[2018-01-16 05:23] LABS: BASOPHILS # (AUTO) 0.02 x10^3/uL (0-0.1); BASOPHILS % (AUTO) 0 % (0-1); EOSINOPHILS # (AUTO) 0.13 x10^3/uL (0-0.4); EOSINOPHILS % (AUTO) 1 % (1-7); LYMPHOCYTES # (AUTO) 2.14 x10^3/uL (1-3.4); LYMPHOCYTES % (AUTO) 23 % (22-44); MD NO; MEAN CORPUSCULAR HEMOGLOBIN 27.8 pg (27.0-34.8); MEAN CORPUSCULAR VOLUME 84.5 fL (80-100); MEAN PLATELET VOLUME 7.8 fL (7.4-10.4); MONOCYTES # (AUTO) 0.47 x10^3/uL (0.2-0.8); MONOCYTES % (AUTO) 5 % (2-9); NEUTROPHILS # (AUTO) 6.57 x10^3/uL (1.8-6.8); NEUTROPHILS % (AUTO) 71 % (42-75); PLATELET COUNT 203 x10^3/uL (130-400); RED BLOOD COUNT 4.49 x10^6/uL (3.82-5.3); RED CELL DISTRIBUTION WIDTH 17.3 % (9.6-15.2)
[2018-01-16 05:29] VITALS: BP 123/80
[2018-01-16 05:30] LABS: ANION GAP 10 mmol/L (5-15); CALCIUM 8.8 mg/dL (8.5-10.1); CHLORIDE 100 mmol/L (98-107)
[2018-01-16] MEDS: DILTIAZEM 60 MG TABLET PO SCH (05:30)
[2018-01-16 07:00] VITALS: BP 119/83
[2018-01-16 08:23] VITALS: BP 119/83
[2018-01-16] MEDS: INSULIN LISPRO 100 UNITS/ML, PEN SQ-INSULIN SCH ×2 (08:25→12:03)
[2018-01-16] MEDS: GABAPENTIN 100 MG CAPSULE PO SCH (09:00)
[2018-01-16] MEDS ORDERED: MAGNESIUM SULFATE PMX 2GM/50ML 50 ML IV ONE (09:00)
[2018-01-16] MEDS: OMEPRAZOLE 20 MG CAPSULE.DR PO SCH (09:00)
[2018-01-16] MEDS: RIVAROXABAN 20 MG TABLET PO SCH (09:00)
[2018-01-16] MEDS: SODIUM CHLORIDE FLUSH 10ML SYR IVF SCH (09:01)
[2018-01-16] MEDS: FLUTICASONE/VILANTEROL 100-25MCG/INH INH SCH (09:01)
[2018-01-16] MEDS: INSULIN GLARGINE 100 UNITS/ML, PEN SQ-INSULIN SCH (09:01)
[2018-01-16] MEDS: ARIPIPRAZOLE 10 MG TABLET PO SCH (09:01)
[2018-01-16] MEDS: LOSARTAN 25MG TABLET PO SCH (09:01)
[2018-01-16] MEDS: CITALOPRAM 20 MG TABLET PO SCH (09:01)
[2018-01-16] MEDS ORDERED: DILTIAZEM 240 MG CAP.ER.24H PO SCH (09:30)
[2018-01-16 10:03] VITALS: BP 104/76
== END 2018-01-16 14:17 | disposition home or self-care (01) | DRG 243 ==
LOC: ED 06:23 → EDIP 07:11 → INTOOBSV 07:11 → 5SO 08:05 → OBSVTOIN 01-13 12:13
PROVIDERS: ADMIT Family Medicine; ATTEND Hospitalist
PROC: 0JH604Z Insertion of Pacemaker, Single Chamber into Chest Subcutaneous Tissue and Fascia, Open Approach (ICD-10-PCS; principal; 2018-01-15)
PROC: 02HK3JZ Insertion of Pacemaker Lead into Right Ventricle, Percutaneous Approach (ICD-10-PCS; 2018-01-15)
DX: I48.0 Paroxysmal atrial fibrillation (principal); K76.6 Portal hypertension; I49.5 Sick sinus syndrome; E11.65 Type 2 diabetes mellitus with hyperglycemia; E78.5 Hyperlipidemia, unspecified; E83.42 Hypomagnesemia; E86.9 Volume depletion, unspecified; E87.6 Hypokalemia; F12.90 Cannabis use, unspecified, uncomplicated; I11.0 Hypertensive heart disease with heart failure; I27.21 Secondary pulmonary arterial hypertension; I50.9 Heart failure, unspecified; J44.9 Chronic obstructive pulmonary disease, unspecified; K21.9 Gastro-esophageal reflux disease without esophagitis; M85.80 Other specified disorders of bone density and structure, unspecified site; Z59.0 Homelessness; Z72.0 Tobacco use; Z79.4 Long term (current) use of insulin; Z85.828 Personal history of other malignant neoplasm of skin; Z86.14 Personal history of Methicillin resistant Staphylococcus aureus infection; Z90.710 Acquired absence of both cervix and uterus; Z91.14 Patient's other noncompliance with medication regimen; Z95.0 Presence of cardiac pacemaker; Z89.021 Acquired absence of right finger(s); Z88.0 Allergy status to penicillin; Z88.8 Allergy status to other drugs, medicaments and biological substances
CPT/HCPCS: 33207; 36415; 71045; 71046; 71275; 80048; 80076; 80162; 82040; 82962; 83036; 83605; 83735; 83880; 84100; 84145; 84443; 84484; 85025; 85610; 85730; 87040; 93005; 93306; 96361; 96374; 99156; 99157; 99291; C1779; C1786; C1892; G0378; J0690; J2250; J3010; J3370; J3490; J1815; J1940; J3475; J7030

== ENCOUNTER 2018-01-27 11:26 | Inpatient (IN) | payer MEDICAID ==
[~2018-01-27] VITALS: Ht 170.2 cm; Wt 118.3 kg
[~2018-01-27 11:26] MED LIST changes: +ACET325C PO; +BUDE10.22 INH; +DIGO250T12 PO; +DILT240C87 PO; +LOSA25TA6 PO; +METO50TA6 PO; +RIVA20TA PO
[2018-01-27] MEDS ORDERED: DILTIAZEM 125 MG in DEXTROSE 5% 100 ML IV SCH (11:40)
[2018-01-27] MEDS ORDERED: DILTIAZEM 5 MG/ML, 5ML IV ONE (12:00)
[2018-01-27] MEDS ORDERED: SODIUM CHLORIDE FLUSH 10ML SYR IVF ONE (12:00)
[2018-01-27 12:02] LABS: BASOPHILS # (AUTO) 0.07 x10^3/uL (0-0.1); BASOPHILS % (AUTO) 1 % (0-1); EOSINOPHILS # (AUTO) 0.11 x10^3/uL (0-0.4); EOSINOPHILS % (AUTO) 1 % (1-7); LYMPHOCYTES # (AUTO) 2.37 x10^3/uL (1-3.4); LYMPHOCYTES % (AUTO) 25 % (22-44); MD NO; MEAN CORPUSCULAR HEMOGLOBIN 28.5 pg (27.0-34.8); MEAN CORPUSCULAR HGB CONC 34.1 g/dL (32.4-35.8); MEAN CORPUSCULAR VOLUME 83.6 fL (80-100); MEAN PLATELET VOLUME 7.1 fL (7.4-10.4); MONOCYTES # (AUTO) 0.53 x10^3/uL (0.2-0.8); MONOCYTES % (AUTO) 6 % (2-9); NEUTROPHILS # (AUTO) 6.45 x10^3/uL (1.8-6.8); NEUTROPHILS % (AUTO) 68 % (42-75); PLATELET COUNT 326 x10^3/uL (130-400); RED BLOOD COUNT 4.54 x10^6/uL (3.82-5.3); RED CELL DISTRIBUTION WIDTH 17.5 % (9.6-15.2)
[2018-01-27 12:10] LABS: INTERNATIONAL NORMALIZED RATIO 1.01 (0.93-1.1); PROTHROMBIN TIME 10.7 Seconds (9.6-11.5)
[2018-01-27] MEDS ORDERED: DILTIAZEM 5 MG/ML, 5ML ONE (12:11)
[2018-01-27 12:12] LABS: ALBUMIN 3.5 g/dL (3.4-5.0); ANION GAP 15 mmol/L (5-15); CALCIUM 8.1 mg/dL (8.5-10.1); CHLORIDE 98 mmol/L (98-107)
[2018-01-27 12:18] LABS: ALANINE AMINOTRANSFERASE 49 U/L (12-78); ALKALINE PHOSPHATASE 104 U/L (45-117); BILIRUBIN,TOTAL 0.4 mg/dL (0.2-1.0); CREATININE 0.64 mg/dL (0.55-1.02); TOTAL PROTEIN 7.8 g/dL (6.4-8.2); TROPONIN I < 0.015 ng/mL (0.000-0.045)
[2018-01-27] MEDS ORDERED: DIGOXIN 0.25 MG/ML, 2ML ONE (13:26)
[2018-01-27] MEDS ORDERED: POTASSIUM CHLORIDE 20 MEQ TAB.ER.PRT ONE (13:26)
[2018-01-27] MEDS ORDERED: POTASSIUM CHLORIDE 20 MEQ TAB.ER.PRT PO ONE (13:30)
[2018-01-27] MEDS ORDERED: SODIUM CHLORIDE FLUSH 10ML SYR IVF PRN (13:30)
[2018-01-27] MEDS ORDERED: DIGOXIN 0.25 MG/ML, 2ML IVPush ONE (13:30)
[2018-01-27] MEDS ORDERED: ACETAMINOPHEN 325 MG TABLET PO PRN (15:30)
[2018-01-27] MEDS ORDERED: BISACODYL 10 MG SUPP PR PRN (15:30)
[2018-01-27] MEDS ORDERED: ONDANSETRON 2MG/ML, 2ML IVPush PRN (15:30)
[2018-01-27] MEDS ORDERED: DEXTROSE 50%, 50ML SYRINGE IVPush PRN (15:30)
[2018-01-27] MEDS ORDERED: ONDANSETRON ODT 4 MG PO PRN (15:30)
[2018-01-27] MEDS ORDERED: GLUCAGON 1 MG IM PRN (15:30)
[2018-01-27] MEDS ORDERED: NS + 20MEQ KCL 1,000 ML IV SCH (15:30)
[2018-01-27] MEDS ORDERED: DEXTROSE 4 GM TAB.CHEW PO PRN (15:30)
[2018-01-27] MEDS ORDERED: ENALAPRILAT 1.25 MG/ML, 2ML IVPush PRN (15:30)
[2018-01-27] MEDS ORDERED: LABETALOL 5MG/ML, 20ML IVPush PRN (15:30)
[2018-01-27] MEDS ORDERED: POLYETHYLENE GLYCOL 17 GM PACKET PO PRN (15:30)
[2018-01-27] MEDS ORDERED: HEPARIN 5,000 UNITS/ML, 1ML IV ONE (16:30)
[2018-01-27] MEDS ORDERED: ALBUTEROL SULFATE 2.5 MG/3 ML NPPB SCH (16:30)
[2018-01-27] MEDS ORDERED: HEPARIN 25,000 UNITS/500ML PMX 500 ML IV PRN (16:30)
[2018-01-27] MEDS: GABAPENTIN 100 MG CAPSULE PO SCH ×2 (16:52→21:07)
[2018-01-27] MEDS ORDERED: LORazepam 2 MG/ML, 1ML IV PRN ×4 (17:30)
[2018-01-27] MEDS ORDERED: LORazepam 1MG TABLET PO PRN ×2 (17:30)
[2018-01-27] MEDS ORDERED: LORazepam 0.5MG TABLET PO PRN (17:30)
[2018-01-27 17:47] LABS: CULTURE INDICATED? YES; MICROSCOPIC INDICATED
[2018-01-27] MEDS: NICOTINE 14MG/24 HR PATCH.TD24 TD SCH (18:15)
[2018-01-27] MEDS: INSULIN LISPRO 100 UNITS/ML, PEN SQ-INSULIN SCH ×2 (18:49→21:00)
[2018-01-27] MEDS: OMEPRAZOLE 20 MG CAPSULE.DR PO SCH (19:06)
[2018-01-27 19:26] VITALS: BP 105/73
[2018-01-27] MEDS ORDERED: INSULIN GLARGINE 100 UNITS/ML, PEN SQ-INSULIN SCH (21:00)
[2018-01-27] MEDS ORDERED: BUDESONIDE 0.5 MG/2 ML INHA NPPB SCH (21:00)
[2018-01-27] MEDS: DOCUSATE 100 MG CAPSULE PO SCH (21:07)
[2018-01-27] MEDS: SODIUM CHLORIDE FLUSH 10ML SYR IVF SCH (21:07)
[2018-01-27] MEDS: ALBUTEROL SULFATE 2.5 MG/3 ML NPPB SCH (21:30)
[2018-01-28 00:11] VITALS: BP 120/71
[2018-01-28] MEDS: HEPARIN 5,000 UNITS/ML, 1ML IV PRN ×2 (01:22→09:13)
[2018-01-28 02:04] VITALS: BP 101/71
[2018-01-28] MEDS: ALBUTEROL SULFATE 2.5 MG/3 ML NPPB SCH ×3 (03:30→15:05)
[2018-01-28 05:40] LABS: BASOPHILS # (AUTO) 0.04 x10^3/uL (0-0.1); BASOPHILS % (AUTO) 1 % (0-1); EOSINOPHILS # (AUTO) 0.16 x10^3/uL (0-0.4); EOSINOPHILS % (AUTO) 4 % (1-7); LYMPHOCYTES # (AUTO) 1.73 x10^3/uL (1-3.4); LYMPHOCYTES % (AUTO) 45 % (22-44); MD NO; MEAN CORPUSCULAR HEMOGLOBIN 28.4 pg (27.0-34.8); MEAN CORPUSCULAR HGB CONC 33.8 g/dL (32.4-35.8); MEAN CORPUSCULAR VOLUME 83.9 fL (80-100); MEAN PLATELET VOLUME 7.6 fL (7.4-10.4); MONOCYTES # (AUTO) 0.28 x10^3/uL (0.2-0.8); MONOCYTES % (AUTO) 7 % (2-9); NEUTROPHILS # (AUTO) 1.65 x10^3/uL (1.8-6.8); NEUTROPHILS % (AUTO) 43 % (42-75); PLATELET COUNT 254 x10^3/uL (130-400); RED BLOOD COUNT 3.85 x10^6/uL (3.82-5.3)
[2018-01-28 05:45] LABS: ANION GAP 10 mmol/L (5-15); CALCIUM 7.9 mg/dL (8.5-10.1); CHLORIDE 103 mmol/L (98-107); CREATININE 0.58 mg/dL (0.55-1.02)
[2018-01-28 06:49] VITALS: BP 107/70
[2018-01-28] MEDS: INSULIN LISPRO 100 UNITS/ML, PEN SQ-INSULIN SCH ×4 (07:00→20:03)
[2018-01-28] MEDS: BUDESONIDE 0.5 MG/2 ML INHA NPPB SCH ×2 (07:10→20:29)
[2018-01-28] MEDS: SODIUM CHLORIDE FLUSH 10ML SYR IVF SCH ×2 (08:25→19:46)
[2018-01-28] MEDS: OMEPRAZOLE 20 MG CAPSULE.DR PO SCH ×2 (08:25→16:24)
[2018-01-28] MEDS: DOCUSATE 100 MG CAPSULE PO SCH ×2 (08:25→19:47)
[2018-01-28] MEDS: GABAPENTIN 100 MG CAPSULE PO SCH ×3 (08:25→19:47)
[2018-01-28] MEDS: DILTIAZEM 240 MG CAP.ER.24H PO SCH (08:33)
[2018-01-28] MEDS ORDERED: MAGNESIUM SULFATE PMX 2GM/50ML 50 ML IV ONE ×2 (09:00→10:00)
[2018-01-28] MEDS ORDERED: ALBUTEROL/IPRATROPIUM 2.5MG/0.5MG, 3 ML NEB SCH (09:00)
[2018-01-28] MEDS ORDERED: VANCOMYCIN 500 MG ONE (11:01)
[2018-01-28] MEDS ORDERED: LIDOCAINE/PF 1%, 30ML ONE (11:01)
[2018-01-28] MEDS ORDERED: CEFAZOLIN 1,000 MG ONE (11:43)
[2018-01-28] MEDS ORDERED: PROPOFOL 10 MG/ML, 20ML ONE (11:48)
[2018-01-28] MEDS ORDERED: ROCURONIUM 10 MG/ML,10ML ONE (11:48)
[2018-01-28] MEDS ORDERED: ESMOLOL 100 MG/10 ML ONE (11:48)
[2018-01-28] MEDS ORDERED: DEXAMETHASONE 4 MG/ML, 1ML ONE (11:48)
[2018-01-28] MEDS ORDERED: SUCCINYLCHOLINE 20 MG/ML, 10ML ONE (11:48)
[2018-01-28] MEDS ORDERED: ONDANSETRON 2MG/ML, 2ML ONE (11:48)
[2018-01-28] MEDS ORDERED: MIDAZOLAM 1 MG/ML, 2ML ONE (12:28)
[2018-01-28] MEDS ORDERED: EPHEDRINE 50 MG/ML, 1ML IVPush PRN (13:00)
[2018-01-28] MEDS ORDERED: ALBUTEROL SULFATE 2.5 MG/3 ML NPPB PRN ×2 (13:00→19:30)
[2018-01-28] MEDS ORDERED: MIDAZOLAM 1 MG/ML, 2ML IV PRN (13:00)
[2018-01-28] MEDS ORDERED: hydrALAzine 20 MG/ML, 1ML IV PRN (13:00)
[2018-01-28] MEDS ORDERED: PROMETHAZINE 25 MG/ML, 1ML IM PRN (13:00)
[2018-01-28] MEDS ORDERED: HOLD MEDICATION MC PRN (13:00)
[2018-01-28] MEDS ORDERED: FENTANYL PF 100 MCG/2ML IV PRN (13:00)
[2018-01-28] MEDS ORDERED: HALOPERIDOL 5 MG/ML IV PRN (13:00)
[2018-01-28] MEDS ORDERED: PROMETHAZINE 12.5 MG SUPP PR PRN (13:00)
[2018-01-28] MEDS ORDERED: MORPHINE SULFATE 4 MG/ML, 1ML IVPush PRN (13:00)
[2018-01-28] MEDS ORDERED: LABETALOL 5MG/ML, 20ML IV PRN (13:00)
[2018-01-28] MEDS ORDERED: OXYcodone 5 MG/5 ML ORAL.SOL UDC PO PRN (13:00)
[2018-01-28] MEDS ORDERED: MEPERIDINE/PF 25MG/0.5ML IVPush PRN (13:00)
[2018-01-28] MEDS ORDERED: HYDROmorphone 1 MG/ML, 1ML IV PRN (13:00)
[2018-01-28] MEDS ORDERED: DIAZEPAM 5 MG/ML, 2ML IVPush PRN (13:00)
[2018-01-28] MEDS ORDERED: ONDANSETRON ODT 8 MG PO PRN (13:00)
[2018-01-28] MEDS ORDERED: ONDANSETRON 2MG/ML, 2ML IV PRN (13:00)
[2018-01-28 13:55] VITALS: BP 123/70
[2018-01-28] MEDS ORDERED: DIGOXIN 0.25 MG/ML, 2ML IVPush ONE (15:00)
[2018-01-28] MEDS ORDERED: VANCOMYCIN PER PHARMACY MC PRN (18:00)
[2018-01-28] MEDS: NICOTINE 14MG/24 HR PATCH.TD24 TD SCH (18:02)
[2018-01-28 19:39] VITALS: BP 138/78
[2018-01-28] MEDS: CEFAZOLIN PMX 1GM/50ML 50 ML IVPB SCH (19:46)
[2018-01-28] MEDS: METOPROLOL TARTRATE 25 MG TABLET PO SCH (19:47)
[2018-01-28] MEDS ORDERED: PHARMACOKINETIC MONITORING MC PRN (20:00)
[2018-01-28] MEDS: HYDROcodone/APAP 5/325 TABLET PO PRN (20:13)
[2018-01-28] MEDS: ALBUTEROL/IPRATROPIUM 2.5MG/0.5MG, 3 ML NEB SCH (20:29)
[2018-01-28] MEDS: VANCOMYCIN 2,200 MG in SODIUM CHLORIDE 0.9% 500 ML IV SCH (20:50)
[2018-01-29 01:42] VITALS: BP 133/81
[2018-01-29] MEDS: CEFAZOLIN PMX 1GM/50ML 50 ML IVPB SCH ×2 (03:40→11:54)
[2018-01-29] MEDS: METOPROLOL TARTRATE 25 MG TABLET PO SCH ×4 (03:40→20:54)
[2018-01-29 06:42] VITALS: BP 129/84
[2018-01-29] MEDS: BUDESONIDE 0.5 MG/2 ML INHA NPPB SCH ×2 (07:10→19:50)
[2018-01-29] MEDS: ALBUTEROL/IPRATROPIUM 2.5MG/0.5MG, 3 ML NEB SCH ×4 (07:10→19:50)
[2018-01-29] MEDS: HYDROcodone/APAP 5/325 TABLET PO PRN ×3 (08:04→20:54)
[2018-01-29] MEDS: OMEPRAZOLE 20 MG CAPSULE.DR PO SCH ×2 (08:04→16:30)
[2018-01-29] MEDS: DILTIAZEM 240 MG CAP.ER.24H PO SCH (08:05)
[2018-01-29] MEDS: GABAPENTIN 100 MG CAPSULE PO SCH ×3 (08:05→20:54)
[2018-01-29] MEDS: DOCUSATE 100 MG CAPSULE PO SCH ×2 (08:05→20:55)
[2018-01-29] MEDS: SODIUM CHLORIDE FLUSH 10ML SYR IVF SCH ×2 (08:08→20:54)
[2018-01-29] MEDS: INSULIN LISPRO 100 UNITS/ML, PEN SQ-INSULIN SCH ×4 (08:08→20:55)
[2018-01-29] MEDS ORDERED: METO25TA35 PO (09:19)
[2018-01-29] MEDS ORDERED: SULF1TAB24 PO (09:23)
[2018-01-29 12:32] VITALS: BP 121/77
[2018-01-29] MEDS: VANCOMYCIN 2,200 MG in SODIUM CHLORIDE 0.9% 500 ML IV SCH (15:25)
[2018-01-29] MEDS: NICOTINE 14MG/24 HR PATCH.TD24 TD SCH (18:08)
[2018-01-29 19:29] VITALS: BP 132/87
[2018-01-30 01:42] VITALS: BP 129/86
[2018-01-30] MEDS: METOPROLOL TARTRATE 25 MG TABLET PO SCH ×4 (02:48→21:03)
[2018-01-30] MEDS: ALBUTEROL/IPRATROPIUM 2.5MG/0.5MG, 3 ML NEB SCH ×4 (06:59→19:26)
[2018-01-30] MEDS: BUDESONIDE 0.5 MG/2 ML INHA NPPB SCH ×2 (06:59→19:27)
[2018-01-30] MEDS: INSULIN LISPRO 100 UNITS/ML, PEN SQ-INSULIN SCH ×4 (07:34→21:03)
[2018-01-30 07:46] VITALS: BP 133/82
[2018-01-30] MEDS: OMEPRAZOLE 20 MG CAPSULE.DR PO SCH ×2 (07:48→17:23)
[2018-01-30] MEDS: HYDROcodone/APAP 5/325 TABLET PO PRN ×3 (07:48→21:03)
[2018-01-30] MEDS: DOCUSATE 100 MG CAPSULE PO SCH ×2 (07:48→21:02)
[2018-01-30] MEDS: DILTIAZEM 240 MG CAP.ER.24H PO SCH (07:48)
[2018-01-30] MEDS: GABAPENTIN 100 MG CAPSULE PO SCH ×3 (07:49→21:02)
[2018-01-30] MEDS: SODIUM CHLORIDE FLUSH 10ML SYR IVF SCH ×2 (07:50→21:03)
[2018-01-30] MEDS: VANCOMYCIN 2,200 MG in SODIUM CHLORIDE 0.9% 500 ML IV SCH (08:03)
[2018-01-30 13:29] VITALS: BP 120/83
[2018-01-30] MEDS: NICOTINE 14MG/24 HR PATCH.TD24 TD SCH (17:23)
[2018-01-30 18:52] VITALS: BP 114/80
[2018-01-31 01:15] VITALS: BP 120/76
[2018-01-31] MEDS: METOPROLOL TARTRATE 25 MG TABLET PO SCH ×4 (02:25→20:05)
[2018-01-31] MEDS: VANCOMYCIN 2,200 MG in SODIUM CHLORIDE 0.9% 500 ML IV SCH ×2 (02:25→20:05)
[2018-01-31] MEDS: ALBUTEROL/IPRATROPIUM 2.5MG/0.5MG, 3 ML NEB SCH ×3 (06:50→20:23)
[2018-01-31] MEDS: BUDESONIDE 0.5 MG/2 ML INHA NPPB SCH ×2 (06:50→20:23)
[2018-01-31 07:16] VITALS: BP 127/85
[2018-01-31] MEDS: GABAPENTIN 100 MG CAPSULE PO SCH ×3 (08:18→20:05)
[2018-01-31] MEDS: OMEPRAZOLE 20 MG CAPSULE.DR PO SCH ×2 (08:18→18:04)
[2018-01-31] MEDS: DILTIAZEM 240 MG CAP.ER.24H PO SCH (08:18)
[2018-01-31] MEDS: INSULIN LISPRO 100 UNITS/ML, PEN SQ-INSULIN SCH ×4 (08:21→20:14)
[2018-01-31] MEDS: DOCUSATE 100 MG CAPSULE PO SCH ×2 (08:22→20:05)
[2018-01-31] MEDS: SODIUM CHLORIDE FLUSH 10ML SYR IVF SCH ×2 (09:00→20:13)
[2018-01-31] MEDS: HYDROcodone/APAP 5/325 TABLET PO PRN ×3 (11:11→23:50)
[2018-01-31 13:35] VITALS: BP 137/85
[2018-01-31] MEDS: DILTIAZEM 30 MG TABLET PO SCH ×2 (17:30→23:51)
[2018-01-31] MEDS: NICOTINE 14MG/24 HR PATCH.TD24 TD SCH (18:18)
[2018-01-31 19:09] VITALS: BP 137/63
[2018-01-31 23:49] VITALS: BP 145/85
[2018-02-01 01:22] VITALS: BP 145/85
[2018-02-01] MEDS: METOPROLOL TARTRATE 25 MG TABLET PO SCH ×2 (03:35→08:50)
[2018-02-01] MEDS: DILTIAZEM 30 MG TABLET PO SCH ×2 (05:35→11:23)
[2018-02-01 06:43] VITALS: BP 148/92
[2018-02-01] MEDS: INSULIN LISPRO 100 UNITS/ML, PEN SQ-INSULIN SCH ×2 (07:00→11:23)
[2018-02-01] MEDS: ALBUTEROL/IPRATROPIUM 2.5MG/0.5MG, 3 ML NEB SCH ×2 (07:20→12:00)
[2018-02-01] MEDS: BUDESONIDE 0.5 MG/2 ML INHA NPPB SCH (07:20)
[2018-02-01] MEDS ORDERED: RIVAROXABAN 20 MG TABLET ONE (08:42)
[2018-02-01] MEDS ORDERED: RIVAROXABAN 20 MG TABLET PO SCH (08:48)
[2018-02-01] MEDS: OMEPRAZOLE 20 MG CAPSULE.DR PO SCH (08:49)
[2018-02-01] MEDS: GABAPENTIN 100 MG CAPSULE PO SCH (08:49)
[2018-02-01] MEDS: DOCUSATE 100 MG CAPSULE PO SCH (08:49)
[2018-02-01] MEDS: SODIUM CHLORIDE FLUSH 10ML SYR IVF SCH (08:50)
[2018-02-01] MEDS: DILTIAZEM 240 MG CAP.ER.24H PO SCH (08:57)
[2018-02-01] MEDS: HYDROcodone/APAP 5/325 TABLET PO PRN (08:59)
[2018-02-01] MEDS ORDERED: DILT360T PO (11:42)
[2018-02-01] MEDS ORDERED: SIMV20TA PO (11:44)
== END 2018-02-01 13:15 | disposition home or self-care (01) | DRG 261 ==
LOC: ED 13:20 → EDIP 13:21 → 5SO 14:35
PROVIDERS: ADMIT Family Medicine; ATTEND Family Medicine
PROC: 02WA3MZ Revision of Cardiac Lead in Heart, Percutaneous Approach (ICD-10-PCS; principal; 2018-01-28 13:00)
PROC: 4B02XSZ Measurement of Cardiac Pacemaker, External Approach (ICD-10-PCS; 2018-01-29)
DX: T82.120A Displacement of cardiac electrode, initial encounter (principal); D68.59 Other primary thrombophilia; I48.1 Persistent atrial fibrillation; K76.6 Portal hypertension; Z68.41 Body mass index [BMI] 40.0-44.9, adult; E11.65 Type 2 diabetes mellitus with hyperglycemia; E66.01 Morbid (severe) obesity due to excess calories; E78.5 Hyperlipidemia, unspecified; E87.6 Hypokalemia; F17.210 Nicotine dependence, cigarettes, uncomplicated; I11.0 Hypertensive heart disease with heart failure; I27.20 Pulmonary hypertension, unspecified; I48.2 Chronic atrial fibrillation; I50.9 Heart failure, unspecified; K21.9 Gastro-esophageal reflux disease without esophagitis; J44.9 Chronic obstructive pulmonary disease, unspecified; M85.80 Other specified disorders of bone density and structure, unspecified site; W05.0XXA Fall from non-moving wheelchair, initial encounter; K59.09 Other constipation; F10.129 Alcohol abuse with intoxication, unspecified; Y90.0 Blood alcohol level of less than 20 mg/100 ml; I95.9 Hypotension, unspecified; Y83.8 Other surgical procedures as the cause of abnormal reaction of the patient, or of later complication, without mention of misadventure at the time of the procedure; Z59.0 Homelessness; Z91.19 Patient's noncompliance with other medical treatment and regimen; Z91.14 Patient's other noncompliance with medication regimen; Z85.828 Personal history of other malignant neoplasm of skin; Z79.899 Other long term (current) drug therapy; Z79.01 Long term (current) use of anticoagulants; Z79.4 Long term (current) use of insulin; Z86.14 Personal history of Methicillin resistant Staphylococcus aureus infection; Z90.710 Acquired absence of both cervix and uterus; Z89.021 Acquired absence of right finger(s); Y93.89 Activity, other specified; Y99.8 Other external cause status; Z88.0 Allergy status to penicillin; Z88.1 Allergy status to other antibiotic agents; Y92.89 Other specified places as the place of occurrence of the external cause
CPT/HCPCS: 33215; 36415; 99285; J7613; J7620; J7626; 71045; 80048; 80053; 80202; 81001; 82962; 83735; 83880; 84484; 85025; 85520; 85610; 85730; 87070; 87077; 87086; 87147; 87186; 87205; 93005; 94640; 96374; 96375; G0378; J0690; J1100; J1644; J2250; J2405; J2704; J3370; J3480; J3490; J0330; J1160; J1815; J2060; J3475; J7040

== ENCOUNTER 2018-02-24 10:56 | Inpatient (IN) | payer MEDICAID ==
[~2018-02-24] VITALS: Ht 170.2 cm; Wt 109.9 kg
[~2018-02-24 10:56] MED LIST changes: +DILT360T PO; +LOSA25TA25 PO; -LOSA25TA6 PO; +METO25TA35 PO; +SIMV20TA PO; +SULF1TAB24 PO
[2018-02-24] MEDS ORDERED: DILTIAZEM 5 MG/ML, 5ML IVPush ONE (11:30)
[2018-02-24] MEDS ORDERED: DILTIAZEM 125 MG in SODIUM CHLORIDE 0.9% 100 ML IV PRN (11:30)
[2018-02-24] MEDS ORDERED: DILTIAZEM 5 MG/ML, 5ML ONE (11:36)
[2018-02-24 11:52] LABS: BASOPHILS # (AUTO) 0.05 x10^3/uL (0-0.1); BASOPHILS % (AUTO) 1 % (0-1); EOSINOPHILS # (AUTO) 0.08 x10^3/uL (0-0.4); EOSINOPHILS % (AUTO) 1 % (1-7); LYMPHOCYTES # (AUTO) 1.57 x10^3/uL (1-3.4); LYMPHOCYTES % (AUTO) 21 % (22-44); MD NO; MEAN CORPUSCULAR HEMOGLOBIN 26.8 pg (27.0-34.8); MEAN CORPUSCULAR HGB CONC 32.3 g/dL (32.4-35.8); MEAN CORPUSCULAR VOLUME 82.9 fL (80-100); MEAN PLATELET VOLUME 7.9 fL (7.4-10.4); MONOCYTES # (AUTO) 0.39 x10^3/uL (0.2-0.8); MONOCYTES % (AUTO) 5 % (2-9); NEUTROPHILS % (AUTO) 72 % (42-75); PLATELET COUNT 344 x10^3/uL (130-400); RED BLOOD COUNT 4.48 x10^6/uL (3.82-5.3); RED CELL DISTRIBUTION WIDTH 17.7 % (9.6-15.2)
[2018-02-24 12:00] LABS: INTERNATIONAL NORMALIZED RATIO 1.07 (0.93-1.1); PROTHROMBIN TIME 11.3 Seconds (9.6-11.5)
[2018-02-24 12:01] LABS: ALANINE AMINOTRANSFERASE 33 U/L (12-78); ALBUMIN 3.5 g/dL (3.4-5.0); ANION GAP 8 mmol/L (5-15); CALCIUM 8.4 mg/dL (8.5-10.1); CHLORIDE 101 mmol/L (98-107)
[2018-02-24 12:06] LABS: ALKALINE PHOSPHATASE 131 U/L (45-117); BILIRUBIN,TOTAL 0.5 mg/dL (0.2-1.0); CREATININE 0.99 mg/dL (0.55-1.02); TOTAL PROTEIN 7.8 g/dL (6.4-8.2); TROPONIN I < 0.015 ng/mL (0.000-0.045)
[2018-02-24] MEDS ORDERED: ONDANSETRON ODT 4 MG PO PRN (13:00)
[2018-02-24] MEDS ORDERED: POLYETHYLENE GLYCOL 17 GM PACKET PO PRN (13:00)
[2018-02-24] MEDS ORDERED: ONDANSETRON 2MG/ML, 2ML IVPush PRN (13:00)
[2018-02-24] MEDS ORDERED: LABETALOL 5MG/ML, 20ML IVPush PRN (13:00)
[2018-02-24] MEDS ORDERED: DEXTROSE 4 GM TAB.CHEW PO PRN (13:30)
[2018-02-24] MEDS ORDERED: GLUCAGON 1 MG IM PRN (13:30)
[2018-02-24] MEDS ORDERED: DEXTROSE 50%, 50ML SYRINGE IVPush PRN (13:30)
[2018-02-24] MEDS ORDERED: RIVAROXABAN 20 MG TABLET PO SCH (13:30)
[2018-02-24 13:36] LABS: FREE T4 (FREE THYROXINE) 1.09 ng/dL (0.76-1.46)
[2018-02-24 13:48] LABS: CHOL/HDL RATIO 7.3; CHOLESTEROL, TOTAL 169 mg/dL (140-239); HDL CHOL % 14 % (28-40); HDL CHOLESTEROL (DIRECT) 23 mg/dL (40-60); LDL CHOLESTEROL,CALCULATED 91 mg/dL (54-169); TRIGLYCERIDES 274 mg/dL (50-200); VLDL CHOLESTEROL 55 mg/dL (0-25)
[2018-02-24 14:01] LABS: HEMOGLOBIN A1C 8.2 % (4.2-6.3)
[2018-02-24 14:20] VITALS: BP 112/80
[2018-02-24] MEDS ORDERED: DILTIAZEM 125 MG in SODIUM CHLORIDE 0.9% 100 ML IV SCH (15:00)
[2018-02-24] MEDS ORDERED: ALBUTEROL/IPRATROPIUM 2.5MG/0.5MG, 3 ML NPPB PRN (16:00)
[2018-02-24] MEDS: GABAPENTIN 400 MG CAPSULE PO SCH ×2 (16:28→20:33)
[2018-02-24] MEDS: INSULIN LISPRO 100 UNITS/ML, PEN SQ-INSULIN SCH ×2 (16:47→21:00)
[2018-02-24 18:01] LABS: AMPHETAMINE SCREEN, URINE Positive (Negative); BARBITURATE SCREEN, URINE Negative (Negative); BENZODIAZEPINE SCREEN, URINE Negative (Negative); CANNABINOID SCREEN, URINE Negative (Negative); COCAINE SCREEN, URINE Negative (Negative); METHADONE SCREEN, URINE Negative (Negative); OPIATE SCREEN, URINE Negative (Negative)
[2018-02-24 18:54] VITALS: BP 108/69
[2018-02-24 19:44] LABS: ANION GAP 7 mmol/L (5-15); CALCIUM 8.1 mg/dL (8.5-10.1); CHLORIDE 101 mmol/L (98-107); CREATININE 1.03 mg/dL (0.55-1.02)
[2018-02-24] MEDS: BUDESONIDE 0.5 MG/2 ML INHA NPPB SCH (20:19)
[2018-02-24] MEDS: ALBUTEROL/IPRATROPIUM 2.5MG/0.5MG, 3 ML NPPB SCH (20:19)
[2018-02-24] MEDS: SODIUM CHLORIDE FLUSH 10ML SYR IVF SCH (20:33)
[2018-02-24] MEDS ORDERED: INSULIN GLARGINE 100 UNITS/ML, PEN SQ-INSULIN SCH (21:00)
[2018-02-24] MEDS: TEMPLATE NON-FORMULARY MED. (Budesonide/Formoterol Fumarate (Symbicort 80-4.5 Mcg Inhaler) INH SCH (21:00)
[2018-02-24] MEDS: DILTIAZEM 125 MG in SODIUM CHLORIDE 0.9% 100 ML IV SCH (23:50)
[2018-02-25 02:31] VITALS: BP 100/64
[2018-02-25] MEDS: DILTIAZEM 125 MG in SODIUM CHLORIDE 0.9% 100 ML IV SCH ×2 (04:19→16:47)
[2018-02-25 05:20] LABS: BASOPHILS # (AUTO) 0.03 x10^3/uL (0-0.1); BASOPHILS % (AUTO) 0 % (0-1); EOSINOPHILS # (AUTO) 0.19 x10^3/uL (0-0.4); EOSINOPHILS % (AUTO) 3 % (1-7); LYMPHOCYTES # (AUTO) 1.56 x10^3/uL (1-3.4); LYMPHOCYTES % (AUTO) 23 % (22-44); MD NO; MEAN CORPUSCULAR HEMOGLOBIN 26.8 pg (27.0-34.8); MEAN CORPUSCULAR VOLUME 83.7 fL (80-100); MEAN PLATELET VOLUME 7.7 fL (7.4-10.4); MONOCYTES # (AUTO) 0.57 x10^3/uL (0.2-0.8); MONOCYTES % (AUTO) 8 % (2-9); NEUTROPHILS # (AUTO) 4.37 x10^3/uL (1.8-6.8); NEUTROPHILS % (AUTO) 65 % (42-75); PLATELET COUNT 306 x10^3/uL (130-400); RED BLOOD COUNT 3.96 x10^6/uL (3.82-5.3); RED CELL DISTRIBUTION WIDTH 17.6 % (9.6-15.2)
[2018-02-25 05:30] LABS: ALANINE AMINOTRANSFERASE 29 U/L (12-78); ANION GAP 8 mmol/L (5-15); CHLORIDE 102 mmol/L (98-107); CREATININE 0.89 mg/dL (0.55-1.02)
[2018-02-25 05:40] LABS: ALKALINE PHOSPHATASE 111 U/L (45-117); BILIRUBIN,TOTAL 0.4 mg/dL (0.2-1.0); TOTAL PROTEIN 6.9 g/dL (6.4-8.2)
[2018-02-25] MEDS: INSULIN LISPRO 100 UNITS/ML, PEN SQ-INSULIN SCH ×5 (07:00→21:27)
[2018-02-25] MEDS ORDERED: MAGNESIUM SULFATE PMX 2GM/50ML 50 ML IV ONE (07:30)
[2018-02-25 07:46] VITALS: BP 108/56
[2018-02-25] MEDS: BUDESONIDE 0.5 MG/2 ML INHA NPPB SCH ×2 (08:51→20:51)
[2018-02-25] MEDS: ALBUTEROL/IPRATROPIUM 2.5MG/0.5MG, 3 ML NPPB SCH ×3 (08:51→20:52)
[2018-02-25] MEDS: TEMPLATE NON-FORMULARY MED. (Budesonide/Formoterol Fumarate (Symbicort 80-4.5 Mcg Inhaler) INH SCH (09:00)
[2018-02-25] MEDS: GABAPENTIN 400 MG CAPSULE PO SCH ×3 (10:09→21:00)
[2018-02-25] MEDS: SENNA/DOCUSATE TABLET PO SCH (10:09)
[2018-02-25] MEDS: SODIUM CHLORIDE FLUSH 10ML SYR IVF SCH ×2 (10:10→21:24)
[2018-02-25 10:38] LABS: CULTURE INDICATED? YES; MICROSCOPIC INDICATED
[2018-02-25] MEDS ORDERED: ALBUTEROL/IPRATROPIUM 2.5MG/0.5MG, 3 ML NPPB PRN (11:30)
[2018-02-25] MEDS ORDERED: BUDESONIDE 0.5 MG/2 ML INHA NPPB PRN (11:30)
[2018-02-25] MEDS ORDERED: TEMPLATE NON-FORMULARY MED. (Budesonide/Formoterol Fumarate (Symbicort 80-4.5 Mcg Inhaler) INH PRN (11:30)
[2018-02-25] MEDS ORDERED: ALBUTEROL/IPRATROPIUM 2.5MG/0.5MG, 3 ML ONE (11:55)
[2018-02-25] MEDS: CEFTRIAXONE PMX 2GM/50ML 50 ML IV SCH (12:26)
[2018-02-25 14:55] VITALS: BP 117/73
[2018-02-25] MEDS ORDERED: TEMPLATE NON-FORMULARY MED. (Budesonide/Formoterol Fumarate (Symbicort 80-4.5 Mcg Inhaler) INH SCH (15:00)
[2018-02-25] MEDS: RIVAROXABAN 20 MG TABLET PO SCH (16:48)
[2018-02-25 18:44] VITALS: BP 131/75
[2018-02-25] MEDS: INSULIN GLARGINE 100 UNITS/ML, PEN SQ-INSULIN SCH (21:26)
[2018-02-26 00:21] VITALS: BP 121/81
[2018-02-26] MEDS: DILTIAZEM 125 MG in SODIUM CHLORIDE 0.9% 100 ML IV SCH ×2 (03:51→17:48)
[2018-02-26 04:49] LABS: BASOPHILS # (AUTO) 0.03 x10^3/uL (0-0.1); BASOPHILS % (AUTO) 0 % (0-1); EOSINOPHILS # (AUTO) 0.09 x10^3/uL (0-0.4); EOSINOPHILS % (AUTO) 1 % (1-7); LYMPHOCYTES % (AUTO) 23 % (22-44); MD NO; MEAN CORPUSCULAR HEMOGLOBIN 27.3 pg (27.0-34.8); MEAN CORPUSCULAR HGB CONC 32.6 g/dL (32.4-35.8); MEAN CORPUSCULAR VOLUME 83.7 fL (80-100); MEAN PLATELET VOLUME 7.4 fL (7.4-10.4); MONOCYTES # (AUTO) 0.54 x10^3/uL (0.2-0.8); MONOCYTES % (AUTO) 8 % (2-9); NEUTROPHILS # (AUTO) 4.84 x10^3/uL (1.8-6.8); NEUTROPHILS % (AUTO) 68 % (42-75); PLATELET COUNT 267 x10^3/uL (130-400); RED BLOOD COUNT 3.68 x10^6/uL (3.82-5.3); RED CELL DISTRIBUTION WIDTH 18.1 % (9.6-15.2)
[2018-02-26 05:04] LABS: ALBUMIN 2.8 g/dL (3.4-5.0); ANION GAP 4 mmol/L (5-15); CALCIUM 8.1 mg/dL (8.5-10.1); CHLORIDE 102 mmol/L (98-107)
[2018-02-26 05:08] LABS: ALANINE AMINOTRANSFERASE 28 U/L (12-78); ALKALINE PHOSPHATASE 102 U/L (45-117); BILIRUBIN,TOTAL 0.4 mg/dL (0.2-1.0); CREATININE 0.76 mg/dL (0.55-1.02); TOTAL PROTEIN 6.7 g/dL (6.4-8.2)
[2018-02-26] MEDS: BUDESONIDE 0.5 MG/2 ML INHA NPPB SCH ×2 (07:21→20:10)
[2018-02-26] MEDS: ALBUTEROL/IPRATROPIUM 2.5MG/0.5MG, 3 ML NPPB SCH ×4 (07:21→20:10)
[2018-02-26 07:48] VITALS: BP 123/73
[2018-02-26] MEDS ORDERED: FUROSEMIDE 40 MG/4 ML IV ONE (08:30)
[2018-02-26] MEDS ORDERED: DIGOXIN 0.25 MG/ML, 2ML IVPush ONE (08:30)
[2018-02-26] MEDS: INSULIN LISPRO 100 UNITS/ML, PEN SQ-INSULIN SCH ×4 (08:59→22:20)
[2018-02-26] MEDS: SODIUM CHLORIDE FLUSH 10ML SYR IVF SCH ×2 (09:00→22:19)
[2018-02-26] MEDS: SENNA/DOCUSATE TABLET PO SCH (09:00)
[2018-02-26] MEDS: GABAPENTIN 400 MG CAPSULE PO SCH ×3 (09:00→22:19)
[2018-02-26] MEDS: CEFTRIAXONE PMX 2GM/50ML 50 ML IV SCH (11:55)
[2018-02-26 13:35] VITALS: BP 103/71
[2018-02-26] MEDS: RIVAROXABAN 20 MG TABLET PO SCH (17:08)
[2018-02-26 20:05] VITALS: BP 126/80
[2018-02-26] MEDS: INSULIN GLARGINE 100 UNITS/ML, PEN SQ-INSULIN SCH (22:20)
[2018-02-27 01:44] VITALS: BP 123/81
[2018-02-27 05:50] LABS: BASOPHILS # (AUTO) 0.05 x10^3/uL (0-0.1); BASOPHILS % (AUTO) 1 % (0-1); EOSINOPHILS # (AUTO) 0.15 x10^3/uL (0-0.4); EOSINOPHILS % (AUTO) 2 % (1-7); LYMPHOCYTES # (AUTO) 1.52 x10^3/uL (1-3.4); LYMPHOCYTES % (AUTO) 20 % (22-44); MD NO; MEAN CORPUSCULAR HGB CONC 32.5 g/dL (32.4-35.8); MEAN CORPUSCULAR VOLUME 83.1 fL (80-100); MEAN PLATELET VOLUME 7.6 fL (7.4-10.4); MONOCYTES # (AUTO) 0.43 x10^3/uL (0.2-0.8); MONOCYTES % (AUTO) 6 % (2-9); NEUTROPHILS # (AUTO) 5.31 x10^3/uL (1.8-6.8); NEUTROPHILS % (AUTO) 71 % (42-75); PLATELET COUNT 215 x10^3/uL (130-400); RED BLOOD COUNT 3.72 x10^6/uL (3.82-5.3)
[2018-02-27 05:55] LABS: ALBUMIN 2.8 g/dL (3.4-5.0); ANION GAP 3 mmol/L (5-15); CALCIUM 8.4 mg/dL (8.5-10.1); CHLORIDE 99 mmol/L (98-107); CREATININE 0.77 mg/dL (0.55-1.02)
[2018-02-27] MEDS: ALBUTEROL/IPRATROPIUM 2.5MG/0.5MG, 3 ML NPPB SCH ×4 (07:00→19:33)
[2018-02-27] MEDS: DILTIAZEM 125 MG in SODIUM CHLORIDE 0.9% 100 ML IV SCH (07:51)
[2018-02-27 07:59] VITALS: BP 123/74
[2018-02-27] MEDS ORDERED: DIGOXIN 0.25 MG/ML, 2ML IVPush ONE (09:00)
[2018-02-27] MEDS: BUDESONIDE 0.5 MG/2 ML INHA NPPB SCH ×2 (09:00→19:33)
[2018-02-27] MEDS: methylPREDNISolone SOD SUCC 125 MG/2 ML IVPush SCH ×3 (09:06→21:08)
[2018-02-27] MEDS: GABAPENTIN 400 MG CAPSULE PO SCH ×3 (09:07→21:08)
[2018-02-27] MEDS: SODIUM CHLORIDE FLUSH 10ML SYR IVF SCH ×2 (09:07→21:10)
[2018-02-27] MEDS: SENNA/DOCUSATE TABLET PO SCH (09:07)
[2018-02-27] MEDS: DILTIAZEM 90 MG TABLET PO SCH ×4 (09:08→21:07)
[2018-02-27] MEDS: INSULIN LISPRO 100 UNITS/ML, PEN SQ-INSULIN SCH ×4 (09:09→21:09)
[2018-02-27] MEDS: CEFTRIAXONE PMX 2GM/50ML 50 ML IV SCH (11:02)
[2018-02-27] MEDS ORDERED: INSULIN GLARGINE 100 UNITS/ML, PEN SQ-INSULIN SCH (13:00)
[2018-02-27 13:40] VITALS: BP 125/85
[2018-02-27] MEDS: RIVAROXABAN 20 MG TABLET PO SCH (17:07)
[2018-02-27 19:48] VITALS: BP 115/78
[2018-02-27] MEDS: INSULIN GLARGINE 100 UNITS/ML, PEN SQ-INSULIN SCH (21:09)
[2018-02-28 01:25] VITALS: BP 111/71
[2018-02-28] MEDS: methylPREDNISolone SOD SUCC 125 MG/2 ML IVPush SCH ×3 (02:48→15:22)
[2018-02-28 05:35] VITALS: BP 131/75
[2018-02-28 05:54] LABS: ALBUMIN 2.9 g/dL (3.4-5.0); ANION GAP 5 mmol/L (5-15); CALCIUM 8.7 mg/dL (8.5-10.1); CHLORIDE 98 mmol/L (98-107); CREATININE 0.81 mg/dL (0.55-1.02)
[2018-02-28 06:01] LABS: BASOPHILS % (AUTO) 0 % (0-1); EOSINOPHILS % (AUTO) 0 % (1-7); LYMPHOCYTES # (AUTO) 0.61 x10^3/uL (1-3.4); LYMPHOCYTES % (AUTO) 6 % (22-44); MD NO; MEAN CORPUSCULAR HGB CONC 32.3 g/dL (32.4-35.8); MEAN CORPUSCULAR VOLUME 83.6 fL (80-100); MONOCYTES # (AUTO) 0.05 x10^3/uL (0.2-0.8); MONOCYTES % (AUTO) 0 % (2-9); NEUTROPHILS # (AUTO) 10.46 x10^3/uL (1.8-6.8); NEUTROPHILS % (AUTO) 94 % (42-75); PLATELET COUNT 262 x10^3/uL (130-400); RED BLOOD COUNT 3.98 x10^6/uL (3.82-5.3); RED CELL DISTRIBUTION WIDTH 17.6 % (9.6-15.2)
[2018-02-28 06:31] VITALS: BP 130/68
[2018-02-28] MEDS: DILTIAZEM 90 MG TABLET PO SCH ×4 (06:33→20:29)
[2018-02-28] MEDS: ALBUTEROL/IPRATROPIUM 2.5MG/0.5MG, 3 ML NPPB SCH ×4 (07:00→20:15)
[2018-02-28] MEDS: SENNA/DOCUSATE TABLET PO SCH (08:58)
[2018-02-28] MEDS: GABAPENTIN 400 MG CAPSULE PO SCH ×3 (08:58→20:27)
[2018-02-28] MEDS: SODIUM CHLORIDE FLUSH 10ML SYR IVF SCH ×2 (08:59→20:28)
[2018-02-28] MEDS: BUDESONIDE 0.5 MG/2 ML INHA NPPB SCH ×2 (08:59→20:15)
[2018-02-28] MEDS ORDERED: INSULIN GLARGINE 100 UNITS/ML, PEN SQ-INSULIN SCH ×2 (09:00→21:00)
[2018-02-28] MEDS ORDERED: FUROSEMIDE 40 MG/4 ML IV ONE (09:30)
[2018-02-28] MEDS ORDERED: DIGOXIN 0.25 MG/ML, 2ML IVPush ONE ×2 (09:30→18:30)
[2018-02-28] MEDS ORDERED: DILTIAZEM 30 MG TABLET ONE ×2 (10:45→20:18)
[2018-02-28] MEDS ORDERED: DILTIAZEM 60 MG TABLET ONE ×2 (10:45→20:18)
[2018-02-28] MEDS: CEFTRIAXONE PMX 2GM/50ML 50 ML IV SCH (10:57)
[2018-02-28] MEDS: INSULIN LISPRO 100 UNITS/ML, PEN SQ-INSULIN SCH ×3 (11:09→20:59)
[2018-02-28 15:08] VITALS: BP 124/82
[2018-02-28] MEDS: RIVAROXABAN 20 MG TABLET PO SCH (16:53)
[2018-02-28 19:32] VITALS: BP 139/97
[2018-03-01 00:36] VITALS: BP 145/76
[2018-03-01] MEDS: DILTIAZEM 90 MG TABLET PO SCH (05:03)
[2018-03-01 05:16] LABS: BASOPHILS # (AUTO) 0.03 x10^3/uL (0-0.1); BASOPHILS % (AUTO) 0 % (0-1); EOSINOPHILS % (AUTO) 0 % (1-7); LYMPHOCYTES # (AUTO) 0.55 x10^3/uL (1-3.4); LYMPHOCYTES % (AUTO) 5 % (22-44); MD NO; MEAN CORPUSCULAR HEMOGLOBIN 26.9 pg (27.0-34.8); MEAN CORPUSCULAR HGB CONC 32.3 g/dL (32.4-35.8); MEAN CORPUSCULAR VOLUME 83.3 fL (80-100); MEAN PLATELET VOLUME 7.7 fL (7.4-10.4); MONOCYTES # (AUTO) 0.31 x10^3/uL (0.2-0.8); MONOCYTES % (AUTO) 3 % (2-9); NEUTROPHILS # (AUTO) 10.72 x10^3/uL (1.8-6.8); NEUTROPHILS % (AUTO) 92 % (42-75); PLATELET COUNT 289 x10^3/uL (130-400); RED BLOOD COUNT 3.87 x10^6/uL (3.82-5.3); RED CELL DISTRIBUTION WIDTH 18.2 % (9.6-15.2)
[2018-03-01 05:23] LABS: ALANINE AMINOTRANSFERASE 20 U/L (12-78); ANION GAP 8 mmol/L (5-15); CALCIUM 8.3 mg/dL (8.5-10.1); CHLORIDE 97 mmol/L (98-107); CREATININE 0.88 mg/dL (0.55-1.02)
[2018-03-01 05:25] LABS: ALKALINE PHOSPHATASE 97 U/L (45-117); BILIRUBIN,TOTAL 0.2 mg/dL (0.2-1.0); TOTAL PROTEIN 7.2 g/dL (6.4-8.2)
[2018-03-01 07:14] VITALS: BP 121/77
[2018-03-01] MEDS ORDERED: DILTIAZEM 120 MG CAP.ER.12H ONE (07:58)
[2018-03-01] MEDS: ALBUTEROL/IPRATROPIUM 2.5MG/0.5MG, 3 ML NPPB SCH ×4 (08:05→20:00)
[2018-03-01] MEDS: FUROSEMIDE 40 MG/4 ML IV SCH ×2 (08:06→16:46)
[2018-03-01] MEDS: INSULIN GLARGINE 100 UNITS/ML, PEN SQ-INSULIN SCH (08:07)
[2018-03-01] MEDS: INSULIN LISPRO 100 UNITS/ML, PEN SQ-INSULIN SCH ×4 (08:07→20:29)
[2018-03-01] MEDS: DIGOXIN 0.125 MG TABLET PO SCH (08:08)
[2018-03-01] MEDS: GABAPENTIN 400 MG CAPSULE PO SCH ×3 (08:08→20:29)
[2018-03-01] MEDS: BUDESONIDE 0.5 MG/2 ML INHA NPPB SCH ×2 (08:10→20:15)
[2018-03-01] MEDS: SODIUM CHLORIDE FLUSH 10ML SYR IVF SCH ×2 (08:10→20:30)
[2018-03-01] MEDS: SENNA/DOCUSATE TABLET PO SCH (08:11)
[2018-03-01] MEDS ORDERED: DILTIAZEM 300 MG CAP.ER.24H PO SCH (09:00)
[2018-03-01] MEDS ORDERED: CEFTRIAXONE PMX 2GM/50ML 50 ML IV SCH (11:00)
[2018-03-01 13:43] VITALS: BP 118/75
[2018-03-01] MEDS ORDERED: INSULIN NPH HUMAN 100 UNIT/ML, 3ML VIAL SQ-INSULIN ONE (14:30)
[2018-03-01] MEDS: RIVAROXABAN 20 MG TABLET PO SCH (16:52)
[2018-03-01 20:52] VITALS: BP 99/62
[2018-03-01] MEDS ORDERED: INSULIN GLARGINE 100 UNITS/ML, PEN SQ-INSULIN SCH (21:00)
[2018-03-02 01:50] VITALS: BP 142/78
[2018-03-02 05:38] LABS: BASOPHILS # (AUTO) 0.03 x10^3/uL (0-0.1); BASOPHILS % (AUTO) 0 % (0-1); EOSINOPHILS # (AUTO) 0.02 x10^3/uL (0-0.4); EOSINOPHILS % (AUTO) 0 % (1-7); LYMPHOCYTES # (AUTO) 1.52 x10^3/uL (1-3.4); LYMPHOCYTES % (AUTO) 16 % (22-44); MD NO; MEAN CORPUSCULAR HEMOGLOBIN 26.4 pg (27.0-34.8); MEAN CORPUSCULAR HGB CONC 31.8 g/dL (32.4-35.8); MEAN CORPUSCULAR VOLUME 83.1 fL (80-100); MEAN PLATELET VOLUME 7.5 fL (7.4-10.4); MONOCYTES # (AUTO) 0.66 x10^3/uL (0.2-0.8); MONOCYTES % (AUTO) 7 % (2-9); NEUTROPHILS # (AUTO) 7.15 x10^3/uL (1.8-6.8); NEUTROPHILS % (AUTO) 76 % (42-75); PLATELET COUNT 294 x10^3/uL (130-400); RED BLOOD COUNT 4.27 x10^6/uL (3.82-5.3); RED CELL DISTRIBUTION WIDTH 18.2 % (9.6-15.2)
[2018-03-02 05:46] LABS: ANION GAP 4 mmol/L (5-15); CALCIUM 8.5 mg/dL (8.5-10.1); CHLORIDE 99 mmol/L (98-107); CREATININE 0.67 mg/dL (0.55-1.02)
[2018-03-02 06:40] VITALS: BP 133/83
[2018-03-02] MEDS: ALBUTEROL/IPRATROPIUM 2.5MG/0.5MG, 3 ML NPPB SCH ×3 (06:50→14:40)
[2018-03-02] MEDS: INSULIN LISPRO 100 UNITS/ML, PEN SQ-INSULIN SCH ×3 (08:34→18:17)
[2018-03-02] MEDS: INSULIN GLARGINE 100 UNITS/ML, PEN SQ-INSULIN SCH (08:37)
[2018-03-02] MEDS: SENNA/DOCUSATE TABLET PO SCH (08:40)
[2018-03-02] MEDS: GABAPENTIN 400 MG CAPSULE PO SCH ×3 (08:41→18:24)
[2018-03-02] MEDS: DIGOXIN 0.125 MG TABLET PO SCH (08:41)
[2018-03-02] MEDS ORDERED: DILTIAZEM 60 MG CAP.ER.12H ONE (08:54)
[2018-03-02] MEDS ORDERED: DILTIAZEM CD 180 MG CAP.ER.24H PO SCH (09:00)
[2018-03-02] MEDS: BUDESONIDE 0.5 MG/2 ML INHA NPPB SCH (09:00)
[2018-03-02] MEDS: SODIUM CHLORIDE FLUSH 10ML SYR IVF SCH (09:00)
[2018-03-02] MEDS ORDERED: PRED10TA14 PO (11:10)
[2018-03-02] MEDS ORDERED: DILT180C53 PO (11:10)
[2018-03-02] MEDS ORDERED: RIVA20TA PO (11:10)
[2018-03-02] MEDS ORDERED: DIGO125T PO (11:10)
[2018-03-02] MEDS ORDERED: INSU100I13 SC (11:10)
[2018-03-02] MEDS ORDERED: INSU100I11 SQ-INSULIN (11:10)
[2018-03-02] MEDS ORDERED: BLOO-1267 XX (12:43)
[2018-03-02] MEDS ORDERED: ALPH1COM XX (12:45)
[2018-03-02 12:57] VITALS: BP 132/76
[2018-03-02] MEDS: RIVAROXABAN 20 MG TABLET PO SCH (18:24)
== END 2018-03-02 18:36 | disposition home or self-care (01) | DRG 189 ==
LOC: ED 11:43 → 5SO 12:57
PROVIDERS: ADMIT Hospitalist; ATTEND Hospitalist
DX: J96.01 Acute respiratory failure with hypoxia (principal); D68.59 Other primary thrombophilia; N39.0 Urinary tract infection, site not specified; I48.0 Paroxysmal atrial fibrillation; D64.9 Anemia, unspecified; E11.65 Type 2 diabetes mellitus with hyperglycemia; E66.01 Morbid (severe) obesity due to excess calories; E78.5 Hyperlipidemia, unspecified; I11.0 Hypertensive heart disease with heart failure; I27.20 Pulmonary hypertension, unspecified; J44.9 Chronic obstructive pulmonary disease, unspecified; F17.200 Nicotine dependence, unspecified, uncomplicated; F10.20 Alcohol dependence, uncomplicated; I50.9 Heart failure, unspecified; B96.20 Unspecified Escherichia coli [E. coli] as the cause of diseases classified elsewhere; K21.9 Gastro-esophageal reflux disease without esophagitis; Z68.37 Body mass index [BMI] 37.0-37.9, adult; Z79.01 Long term (current) use of anticoagulants; Z79.4 Long term (current) use of insulin; Z22.322 Carrier or suspected carrier of Methicillin resistant Staphylococcus aureus; Z90.710 Acquired absence of both cervix and uterus; Z91.14 Patient's other noncompliance with medication regimen; Z95.0 Presence of cardiac pacemaker; Z89.021 Acquired absence of right finger(s); Z71.3 Dietary counseling and surveillance
CPT/HCPCS: 36415; 99291; J7620; J7626; 71045; 80048; 80053; 80061; 80162; 80307; 81001; 82040; 82947; 82962; 83036; 83735; 83880; 84100; 84439; 84443; 84484; 85025; 85610; 85730; 87040; 87077; 87086; 87186; 93005; 94640; 96374; G0378; J0696; J1815; J1940; J1160; J2930; J3475; J7512

== ENCOUNTER 2018-03-10 15:34 | Inpatient (IN) | payer MEDICAID ==
[~2018-03-10] VITALS: Ht 170.2 cm; Wt 111.6 kg
[~2018-03-10 15:34] MED LIST changes: -ACET325C PO; +ACET325C3 PO; +ALPH1COM XX; +BLOO-1267 XX; +DIGO125T PO; +DILT180C53 PO; +PRED10TA14 PO
[2018-03-10] MEDS ORDERED: ALBUTEROL SULFATE 2.5 MG/3 ML NPPB SCH (16:00)
[2018-03-10] MEDS ORDERED: ALBUTEROL/IPRATROPIUM 2.5MG/0.5MG, 3 ML ONE (16:25)
[2018-03-10 16:31] LABS: BASOPHILS # (AUTO) 0.02 x10^3/uL (0-0.1); BASOPHILS % (AUTO) 0 % (0-1); EOSINOPHILS # (AUTO) 0.11 x10^3/uL (0-0.4); EOSINOPHILS % (AUTO) 1 % (1-7); LYMPHOCYTES # (AUTO) 2.17 x10^3/uL (1-3.4); LYMPHOCYTES % (AUTO) 19 % (22-44); MD NO; MEAN CORPUSCULAR HEMOGLOBIN 25.8 pg (27.0-34.8); MEAN CORPUSCULAR HGB CONC 31.7 g/dL (32.4-35.8); MEAN CORPUSCULAR VOLUME 81.6 fL (80-100); MEAN PLATELET VOLUME 7.7 fL (7.4-10.4); MONOCYTES % (AUTO) 4 % (2-9); NEUTROPHILS # (AUTO) 8.66 x10^3/uL (1.8-6.8); NEUTROPHILS % (AUTO) 76 % (42-75); PLATELET COUNT 359 x10^3/uL (130-400); RED BLOOD COUNT 4.78 x10^6/uL (3.82-5.3); RED CELL DISTRIBUTION WIDTH 18.5 % (9.6-15.2)
[2018-03-10] MEDS ORDERED: methylPREDNISolone SOD SUCC 125 MG/2 ML ONE ×2 (16:32→20:59)
[2018-03-10 16:42] LABS: ALBUMIN 3.3 g/dL (3.4-5.0); ANION GAP 10 mmol/L (5-15); CALCIUM 8.5 mg/dL (8.5-10.1); CHLORIDE 99 mmol/L (98-107); CREATININE 0.78 mg/dL (0.55-1.02)
--- NOTE | 2018-03-10 17:00 | NUR ---
LATE NOTE ENTRY FOR 1653: First contact with pt. RT at bedside. Pt has strong productive cough. Pt appears in poor hygeine. RT asks pt if she wears oxygen at home. Pt responds, "I am suppose to but I don't because I am homeless." Placed 2 g PIV in left forearm for meds per EMAR.
--- NOTE | 2018-03-10 17:00 | NUR ---
PT TRANSPORTED ON GURNEY TO IMAGING.
[2018-03-10 17:13] LABS: TROPONIN I < 0.015 ng/mL (0.000-0.045)
[2018-03-10] MEDS: methylPREDNISolone SOD SUCC 125 MG/2 ML IVPush SCH ×3 (17:14→21:12)
[2018-03-10] MEDS ORDERED: CEFTRIAXONE PMX 1GM/50ML 50 ML ONE (18:34)
[2018-03-10] MEDS: CEFTRIAXONE PMX 2GM/50ML 50 ML IV SCH (18:37)
--- NOTE | 2018-03-10 18:58 | NUR ---
PROVIDED REPORT TO SHERIF JONES. ALL QUESTIONS ANSWERED.
[2018-03-10] MEDS ORDERED: ONDANSETRON 2MG/ML, 2ML IVPush PRN (19:00)
[2018-03-10] MEDS ORDERED: hydrALAzine 20 MG/ML, 1ML IVPush PRN (19:00)
--- NOTE | 2018-03-10 19:38 | NUR ---
PT SLEEPING AT THIS TIME. VSS AND WILL CONT TO MONITOR.
[2018-03-10] MEDS ORDERED: GABAPENTIN 400 MG CAPSULE ONE (20:58)
[2018-03-10] MEDS ORDERED: POTASSIUM CHLORIDE 20 MEQ TAB.ER.PRT ONE (20:59)
[2018-03-10] MEDS ORDERED: INSULIN GLARGINE 100 UNITS/ML, PEN SQ-INSULIN SCH (21:00)
[2018-03-10] MEDS ORDERED: TEMPLATE NON-FORMULARY MED. (Gabapentin** 800 MG) PO SCH (21:00)
[2018-03-10] MEDS: POTASSIUM CHLORIDE 20 MEQ TAB.ER.PRT PO SCH (21:13)
[2018-03-10] MEDS: AZITHROMYCIN 500 MG in SODIUM CHLORIDE 0.9% 250 ML IV SCH (21:13)
--- NOTE | 2018-03-10 21:26 | NUR ---
PT MEDICATED WITH EVENING MEDS. PT O2 SAT 89% 6L NC, SWITHCED PT TO OXY MASK AND PT IS MOUTH BREATHING. VSS AND WILL CONT TO MONITOR.
[2018-03-10 23:36] VITALS: BP 113/70
[2018-03-11] MEDS: POTASSIUM CHLORIDE 20 MEQ TAB.ER.PRT PO SCH ×2 (00:10→02:19)
[2018-03-11] MEDS: GUAIFENESIN ER 600 MG TABLET PO SCH ×3 (00:10→20:33)
[2018-03-11] MEDS: INSULIN LISPRO 100 UNITS/ML, PEN SQ-INSULIN SCH ×5 (00:23→20:34)
[2018-03-11] MEDS ORDERED: ALBUTEROL/IPRATROPIUM 2.5MG/0.5MG, 3 ML NPPB SCH ×2 (01:00→05:30)
[2018-03-11] MEDS: methylPREDNISolone SOD SUCC 125 MG/2 ML IVPush SCH ×4 (02:19→20:33)
[2018-03-11 03:50] VITALS: BP 132/66
[2018-03-11] MEDS: RIVAROXABAN 20 MG TABLET PO SCH (05:34)
[2018-03-11 06:59] VITALS: BP 126/80
[2018-03-11] MEDS ORDERED: ALBUTEROL/IPRATROPIUM 2.5MG/0.5MG, 3 ML ONE (07:24)
[2018-03-11] MEDS: ALBUTEROL/IPRATROPIUM 2.5MG/0.5MG, 3 ML NPPB SCH ×6 (07:30→22:00)
[2018-03-11] MEDS: OMEPRAZOLE 20 MG CAPSULE.DR PO SCH (07:55)
[2018-03-11] MEDS: DILTIAZEM CD 180 MG CAP.ER.24H PO SCH (07:55)
[2018-03-11] MEDS: DIGOXIN 0.125 MG TABLET PO SCH (07:56)
[2018-03-11] MEDS: GABAPENTIN 400 MG CAPSULE PO SCH ×3 (07:59→20:33)
[2018-03-11 13:41] VITALS: BP 109/71
[2018-03-11 14:20] LABS: CULTURE INDICATED? YES; MICROSCOPIC INDICATED
[2018-03-11 14:24] LABS: AMPHETAMINE SCREEN, URINE Positive (Negative); BARBITURATE SCREEN, URINE Negative (Negative); BENZODIAZEPINE SCREEN, URINE Negative (Negative); CANNABINOID SCREEN, URINE Negative (Negative); COCAINE SCREEN, URINE Negative (Negative); METHADONE SCREEN, URINE Negative (Negative); OPIATE SCREEN, URINE Negative (Negative)
[2018-03-11] MEDS: CEFTRIAXONE PMX 2GM/50ML 50 ML IV SCH (18:18)
[2018-03-11 19:55] VITALS: BP 131/73
[2018-03-11] MEDS: AZITHROMYCIN 500 MG in SODIUM CHLORIDE 0.9% 250 ML IV SCH (20:33)
[2018-03-11] MEDS: INSULIN GLARGINE 100 UNITS/ML, PEN SQ-INSULIN SCH (20:35)
[2018-03-12 00:01] VITALS: BP 143/79
[2018-03-12] MEDS: methylPREDNISolone SOD SUCC 125 MG/2 ML IVPush SCH ×4 (03:31→21:00)
[2018-03-12] MEDS: RIVAROXABAN 20 MG TABLET PO SCH (05:50)
[2018-03-12 06:05] LABS: CHLORIDE 98 mmol/L (98-107)
[2018-03-12 06:19] LABS: ANION GAP 8 mmol/L (5-15); CALCIUM 8.9 mg/dL (8.5-10.1); CREATININE 0.78 mg/dL (0.55-1.02)
[2018-03-12] MEDS: ALBUTEROL/IPRATROPIUM 2.5MG/0.5MG, 3 ML NPPB SCH ×4 (08:04→22:00)
[2018-03-12 08:09] VITALS: BP 104/60
[2018-03-12] MEDS: DILTIAZEM CD 180 MG CAP.ER.24H PO SCH (09:30)
[2018-03-12] MEDS: INSULIN GLARGINE 100 UNITS/ML, PEN SQ-INSULIN SCH ×2 (09:30→21:00)
[2018-03-12] MEDS: OMEPRAZOLE 20 MG CAPSULE.DR PO SCH (09:30)
[2018-03-12] MEDS: GABAPENTIN 400 MG CAPSULE PO SCH ×3 (09:30→20:59)
[2018-03-12] MEDS: GUAIFENESIN ER 600 MG TABLET PO SCH ×2 (09:30→21:00)
[2018-03-12] MEDS: DIGOXIN 0.125 MG TABLET PO SCH (09:31)
[2018-03-12] MEDS: INSULIN LISPRO 100 UNITS/ML, PEN SQ-INSULIN SCH ×4 (09:36→21:01)
[2018-03-12] MEDS ORDERED: INSULIN GLARGINE 100 UNITS/ML, PEN SQ-INSULIN ONE (12:30)
[2018-03-12 14:30] VITALS: BP 128/78
[2018-03-12] MEDS ORDERED: INSULIN LISPRO 100 UNITS/ML, PEN SQ-INSULIN ONE (17:30)
[2018-03-12] MEDS ORDERED: HALOPERIDOL 5 MG/ML IM PRN (18:30)
[2018-03-12] MEDS ORDERED: LORazepam 2 MG/ML, 1ML IVPush PRN (18:30)
[2018-03-12] MEDS: CEFTRIAXONE PMX 2GM/50ML 50 ML IV SCH (18:31)
[2018-03-12 18:43] VITALS: BP 124/74
[2018-03-12] MEDS: AZITHROMYCIN 500 MG in SODIUM CHLORIDE 0.9% 250 ML IV SCH (20:59)
[2018-03-13 00:11] VITALS: BP 128/85
[2018-03-13] MEDS: methylPREDNISolone SOD SUCC 125 MG/2 ML IVPush SCH ×4 (03:05→21:20)
[2018-03-13] MEDS: RIVAROXABAN 20 MG TABLET PO SCH (05:22)
[2018-03-13 06:28] LABS: CHLORIDE 99 mmol/L (98-107)
[2018-03-13 07:01] LABS: ALANINE AMINOTRANSFERASE 37 U/L (12-78); ALBUMIN 3.1 g/dL (3.4-5.0); ALKALINE PHOSPHATASE 83 U/L (45-117); ANION GAP 7 mmol/L (5-15); BILIRUBIN,TOTAL 0.2 mg/dL (0.2-1.0); CALCIUM 8.6 mg/dL (8.5-10.1); CREATININE 0.71 mg/dL (0.55-1.02); TOTAL PROTEIN 6.7 g/dL (6.4-8.2)
[2018-03-13 07:25] VITALS: BP 124/87
[2018-03-13] MEDS: ALBUTEROL/IPRATROPIUM 2.5MG/0.5MG, 3 ML NPPB SCH ×2 (07:52→10:37)
[2018-03-13] MEDS: OMEPRAZOLE 20 MG CAPSULE.DR PO SCH (08:37)
[2018-03-13] MEDS: DIGOXIN 0.125 MG TABLET PO SCH (08:38)
[2018-03-13] MEDS: DILTIAZEM CD 180 MG CAP.ER.24H PO SCH (08:38)
[2018-03-13] MEDS: GUAIFENESIN ER 600 MG TABLET PO SCH ×2 (08:38→21:20)
[2018-03-13] MEDS: GABAPENTIN 400 MG CAPSULE PO SCH ×3 (08:38→21:20)
[2018-03-13] MEDS: INSULIN GLARGINE 100 UNITS/ML, PEN SQ-INSULIN SCH ×2 (08:41→21:21)
[2018-03-13] MEDS: INSULIN LISPRO 100 UNITS/ML, PEN SQ-INSULIN SCH ×4 (08:42→21:21)
[2018-03-13] MEDS ORDERED: ALBUTEROL/IPRATROPIUM 2.5MG/0.5MG, 3 ML NPPB PRN (12:00)
[2018-03-13] MEDS ORDERED: INSULIN GLARGINE 100 UNITS/ML, PEN SQ-INSULIN ONE (13:00)
[2018-03-13 13:40] VITALS: BP 127/83
[2018-03-13] MEDS: CEFTRIAXONE PMX 2GM/50ML 50 ML IV SCH (18:44)
[2018-03-13 20:03] VITALS: BP 149/83
[2018-03-13] MEDS: AZITHROMYCIN 500 MG in SODIUM CHLORIDE 0.9% 250 ML IV SCH (21:20)
[2018-03-14] VITALS (7 sets, daily range): BP systolic 138–157; BP diastolic 81–92
[2018-03-14] MEDS: methylPREDNISolone SOD SUCC 125 MG/2 ML IVPush SCH ×2 (03:36→09:02)
[2018-03-14] MEDS: RIVAROXABAN 20 MG TABLET PO SCH (05:58)
[2018-03-14] MEDS: INSULIN LISPRO 100 UNITS/ML, PEN SQ-INSULIN SCH ×4 (09:02→21:38)
[2018-03-14] MEDS: INSULIN GLARGINE 100 UNITS/ML, PEN SQ-INSULIN SCH ×2 (09:03→21:38)
[2018-03-14] MEDS: DIGOXIN 0.125 MG TABLET PO SCH (09:03)
[2018-03-14] MEDS: GUAIFENESIN ER 600 MG TABLET PO SCH ×2 (09:04→21:37)
[2018-03-14] MEDS: GABAPENTIN 400 MG CAPSULE PO SCH ×3 (09:04→21:37)
[2018-03-14] MEDS: DILTIAZEM CD 180 MG CAP.ER.24H PO SCH (09:04)
[2018-03-14] MEDS: OMEPRAZOLE 20 MG CAPSULE.DR PO SCH (09:04)
[2018-03-14] MEDS ORDERED: CALCIUM GLUCONATE 4.6 MEQ/10 ML IVPush ONE (13:30)
[2018-03-14] MEDS ORDERED: CALCIUM GLUCONATE 4.6 MEQ in SODIUM CHLORIDE 0.9% 50 ML IV ONE (13:32)
[2018-03-14] MEDS: ERTAPENEM 1 GM in SODIUM CHLORIDE 0.9% 50 ML IV SCH (15:51)
[2018-03-14] MEDS: DILTIAZEM 5 MG/ML, 5ML IVPush PRN ×2 (21:14→23:03)
[2018-03-15 04:05] VITALS: BP 148/97
[2018-03-15] MEDS: RIVAROXABAN 20 MG TABLET PO SCH (05:16)
[2018-03-15 06:21] LABS: BASOPHILS # (AUTO) 0.02 x10^3/uL (0-0.1); BASOPHILS % (AUTO) 0 % (0-1); EOSINOPHILS % (AUTO) 0 % (1-7); LYMPHOCYTES % (AUTO) 8 % (22-44); MD NO; MEAN CORPUSCULAR HEMOGLOBIN 26.3 pg (27.0-34.8); MEAN CORPUSCULAR HGB CONC 32.1 g/dL (32.4-35.8); MEAN PLATELET VOLUME 7.9 fL (7.4-10.4); MONOCYTES # (AUTO) 0.48 x10^3/uL (0.2-0.8); MONOCYTES % (AUTO) 6 % (2-9); NEUTROPHILS # (AUTO) 7.06 x10^3/uL (1.8-6.8); NEUTROPHILS % (AUTO) 86 % (42-75); PLATELET COUNT 240 x10^3/uL (130-400); RED BLOOD COUNT 4.39 x10^6/uL (3.82-5.3); RED CELL DISTRIBUTION WIDTH 18.1 % (9.6-15.2)
[2018-03-15 06:29] LABS: CALCIUM 8.4 mg/dL (8.5-10.1); CHLORIDE 98 mmol/L (98-107)
[2018-03-15 06:35] LABS: ALANINE AMINOTRANSFERASE 47 U/L (12-78); ALKALINE PHOSPHATASE 75 U/L (45-117); ANION GAP 3 mmol/L (5-15); BILIRUBIN,TOTAL 0.4 mg/dL (0.2-1.0); TOTAL PROTEIN 6.5 g/dL (6.4-8.2)
[2018-03-15 07:29] VITALS: BP 115/69
[2018-03-15 07:40] VITALS: BP 153/90
[2018-03-15] MEDS: INSULIN LISPRO 100 UNITS/ML, PEN SQ-INSULIN SCH ×4 (09:06→20:15)
[2018-03-15] MEDS: DILTIAZEM CD 180 MG CAP.ER.24H PO SCH (09:07)
[2018-03-15] MEDS: GUAIFENESIN ER 600 MG TABLET PO SCH ×2 (09:07→20:15)
[2018-03-15] MEDS: OMEPRAZOLE 20 MG CAPSULE.DR PO SCH (09:07)
[2018-03-15] MEDS: DIGOXIN 0.125 MG TABLET PO SCH (09:07)
[2018-03-15] MEDS: GABAPENTIN 400 MG CAPSULE PO SCH ×3 (09:07→20:15)
[2018-03-15] MEDS: INSULIN GLARGINE 100 UNITS/ML, PEN SQ-INSULIN SCH ×2 (09:08→20:15)
[2018-03-15 15:55] VITALS: BP 134/71
[2018-03-15] MEDS: ERTAPENEM 1 GM in SODIUM CHLORIDE 0.9% 50 ML IV SCH (16:43)
[2018-03-15 20:50] VITALS: BP 148/86
[2018-03-15 22:25] VITALS: BP 169/91
[2018-03-15] MEDS: DILTIAZEM 5 MG/ML, 5ML IVPush PRN (22:27)
[2018-03-16 01:05] VITALS: BP 149/101
[2018-03-16] MEDS: RIVAROXABAN 20 MG TABLET PO SCH (05:31)
[2018-03-16] MEDS: INSULIN LISPRO 100 UNITS/ML, PEN SQ-INSULIN SCH ×4 (07:00→22:25)
[2018-03-16 07:32] VITALS: BP 158/92
[2018-03-16] MEDS: DIGOXIN 0.125 MG TABLET PO SCH (08:38)
[2018-03-16] MEDS: OMEPRAZOLE 20 MG CAPSULE.DR PO SCH (08:38)
[2018-03-16] MEDS: GABAPENTIN 400 MG CAPSULE PO SCH ×3 (08:39→22:24)
[2018-03-16] MEDS: GUAIFENESIN ER 600 MG TABLET PO SCH ×2 (08:39→22:24)
[2018-03-16] MEDS: DILTIAZEM CD 180 MG CAP.ER.24H PO SCH (08:39)
[2018-03-16] MEDS: INSULIN GLARGINE 100 UNITS/ML, PEN SQ-INSULIN SCH ×2 (08:39→22:26)
[2018-03-16] MEDS ORDERED: OMEP-110 PO (10:34)
[2018-03-16] MEDS ORDERED: GUAI600T31 PO (10:34)
[2018-03-16] MEDS ORDERED: IPRA3AMP30 NPPB (10:34)
[2018-03-16] MEDS ORDERED: INSU100I11 SQ-INSULIN (10:34)
[2018-03-16] MEDS ORDERED: ACET325T14 PO (10:34)
[2018-03-16] MEDS ORDERED: INSU100I13 SQ-INSULIN (10:34)
[2018-03-16] MEDS ORDERED: ERTA1VIA IV (10:34)
[2018-03-16] MEDS ORDERED: PRED5TAB PO (10:34)
[2018-03-16] MEDS ORDERED: METO50TA82 PO (10:36)
[2018-03-16] MEDS ORDERED: IPRA4AER INH (10:43)
[2018-03-16] MEDS ORDERED: RIVA20TA PO (10:43)
[2018-03-16] MEDS: METOPROLOL TARTRATE 50 MG TABLET PO SCH ×2 (11:34→17:38)
[2018-03-16 13:41] VITALS: BP 143/78
[2018-03-16] MEDS: ERTAPENEM 1 GM in SODIUM CHLORIDE 0.9% 50 ML IV SCH (15:46)
[2018-03-16] MEDS ORDERED: METOPROLOL TARTRATE 50 MG TABLET PO SCH (18:00)
[2018-03-16 21:11] VITALS: BP 133/84
[2018-03-17 02:04] VITALS: BP 141/89
[2018-03-17] MEDS: METOPROLOL TARTRATE 50 MG TABLET PO SCH ×2 (05:53→17:18)
[2018-03-17] MEDS: RIVAROXABAN 20 MG TABLET PO SCH (05:53)
[2018-03-17] MEDS: INSULIN LISPRO 100 UNITS/ML, PEN SQ-INSULIN SCH ×4 (07:00→21:08)
[2018-03-17 08:00] VITALS: BP 110/73
[2018-03-17] MEDS: INSULIN GLARGINE 100 UNITS/ML, PEN SQ-INSULIN SCH ×3 (09:00→21:07)
[2018-03-17] MEDS: DILTIAZEM CD 180 MG CAP.ER.24H PO SCH (09:10)
[2018-03-17] MEDS: GUAIFENESIN ER 600 MG TABLET PO SCH ×2 (09:10→21:08)
[2018-03-17] MEDS: DIGOXIN 0.25 MG TABLET PO SCH (09:10)
[2018-03-17] MEDS: GABAPENTIN 400 MG CAPSULE PO SCH ×3 (09:10→21:09)
[2018-03-17] MEDS: OMEPRAZOLE 20 MG CAPSULE.DR PO SCH (09:11)
[2018-03-17] MEDS ORDERED: GLUCAGON 1 MG IM PRN (10:30)
[2018-03-17] MEDS ORDERED: POLYETHYLENE GLYCOL 17 GM PACKET NG PRN (10:30)
[2018-03-17] MEDS ORDERED: DEXTROSE 4 GM TAB.CHEW PO PRN (10:30)
[2018-03-17] MEDS ORDERED: DEXTROSE 50%, 50ML SYRINGE IVPush PRN (10:30)
[2018-03-17] MEDS ORDERED: BISACODYL 10 MG SUPP PR PRN (10:30)
[2018-03-17] MEDS ORDERED: DOCUSATE 100 MG CAPSULE PO PRN (10:30)
[2018-03-17 15:13] VITALS: BP 146/89
[2018-03-17] MEDS: ERTAPENEM 1 GM in SODIUM CHLORIDE 0.9% 50 ML IV SCH (16:09)
[2018-03-17] MEDS ORDERED: GABAPENTIN 100 MG CAPSULE ONE (20:58)
[2018-03-17] MEDS: SODIUM CHLORIDE FLUSH 10ML SYR IVF SCH (21:08)
[2018-03-17 21:31] VITALS: BP 149/87
[2018-03-18 04:11] VITALS: BP 156/84
[2018-03-18] MEDS: RIVAROXABAN 20 MG TABLET PO SCH (05:51)
[2018-03-18] MEDS: METOPROLOL TARTRATE 50 MG TABLET PO SCH ×2 (05:51→17:26)
[2018-03-18] MEDS: INSULIN LISPRO 100 UNITS/ML, PEN SQ-INSULIN SCH ×4 (07:00→20:38)
[2018-03-18 08:51] VITALS: BP 129/85
[2018-03-18] MEDS: INSULIN GLARGINE 100 UNITS/ML, PEN SQ-INSULIN SCH ×2 (10:08→20:37)
[2018-03-18] MEDS: OMEPRAZOLE 20 MG CAPSULE.DR PO SCH (10:09)
[2018-03-18] MEDS: GUAIFENESIN ER 600 MG TABLET PO SCH ×2 (10:09→20:37)
[2018-03-18] MEDS: DILTIAZEM CD 180 MG CAP.ER.24H PO SCH (10:09)
[2018-03-18] MEDS: GABAPENTIN 400 MG CAPSULE PO SCH ×3 (10:09→20:37)
[2018-03-18] MEDS: DIGOXIN 0.25 MG TABLET PO SCH (10:10)
[2018-03-18 12:39] VITALS: BP 110/71
[2018-03-18] MEDS: SODIUM CHLORIDE FLUSH 10ML SYR IVF SCH ×2 (12:41→20:36)
[2018-03-18 14:20] VITALS: BP 121/79
[2018-03-18] MEDS: ERTAPENEM 1 GM in SODIUM CHLORIDE 0.9% 50 ML IV SCH (15:49)
[2018-03-18 19:35] VITALS: BP 138/83
[2018-03-19 01:36] VITALS: BP 117/84
[2018-03-19 05:29] VITALS: BP 146/89
[2018-03-19] MEDS: METOPROLOL TARTRATE 50 MG TABLET PO SCH ×2 (05:32→17:17)
[2018-03-19] MEDS: RIVAROXABAN 20 MG TABLET PO SCH (05:32)
[2018-03-19 08:10] VITALS: BP 134/83
[2018-03-19] MEDS: INSULIN LISPRO 100 UNITS/ML, PEN SQ-INSULIN SCH ×5 (08:41→20:49)
[2018-03-19] MEDS: SODIUM CHLORIDE FLUSH 10ML SYR IVF SCH ×3 (09:29→20:48)
[2018-03-19] MEDS: GABAPENTIN 400 MG CAPSULE PO SCH ×3 (09:30→20:49)
[2018-03-19] MEDS: DIGOXIN 0.25 MG TABLET PO SCH (09:30)
[2018-03-19] MEDS: GUAIFENESIN ER 600 MG TABLET PO SCH ×2 (09:31→20:49)
[2018-03-19] MEDS: OMEPRAZOLE 20 MG CAPSULE.DR PO SCH (09:31)
[2018-03-19] MEDS: INSULIN GLARGINE 100 UNITS/ML, PEN SQ-INSULIN SCH ×2 (09:31→20:50)
[2018-03-19] MEDS: DILTIAZEM CD 180 MG CAP.ER.24H PO SCH (09:31)
[2018-03-19] MEDS: ERTAPENEM 1 GM in SODIUM CHLORIDE 0.9% 50 ML IV SCH (15:01)
[2018-03-19] MEDS ORDERED: GLUCAGON 1 MG IM PRN (15:30)
[2018-03-19] MEDS ORDERED: DEXTROSE 4 GM TAB.CHEW PO PRN (15:30)
[2018-03-19] MEDS ORDERED: DEXTROSE 50%, 50ML SYRINGE IVPush PRN (15:30)
[2018-03-19 20:44] VITALS: BP 125/82
[2018-03-20 01:30] VITALS: BP 132/85
[2018-03-20 06:02] VITALS: BP 138/89
[2018-03-20] MEDS: RIVAROXABAN 20 MG TABLET PO SCH (06:03)
[2018-03-20] MEDS: METOPROLOL TARTRATE 50 MG TABLET PO SCH ×2 (06:03→17:04)
[2018-03-20 08:00] VITALS: BP 125/85
[2018-03-20] MEDS: INSULIN LISPRO 100 UNITS/ML, PEN SQ-INSULIN SCH ×4 (08:50→21:12)
[2018-03-20] MEDS: GABAPENTIN 400 MG CAPSULE PO SCH ×3 (08:51→21:11)
[2018-03-20] MEDS: GUAIFENESIN ER 600 MG TABLET PO SCH ×2 (08:51→21:11)
[2018-03-20] MEDS: DIGOXIN 0.25 MG TABLET PO SCH (08:51)
[2018-03-20] MEDS: OMEPRAZOLE 20 MG CAPSULE.DR PO SCH (08:51)
[2018-03-20] MEDS: DILTIAZEM CD 180 MG CAP.ER.24H PO SCH (08:51)
[2018-03-20] MEDS: INSULIN GLARGINE 100 UNITS/ML, PEN SQ-INSULIN SCH ×2 (08:51→21:13)
[2018-03-20] MEDS: SODIUM CHLORIDE FLUSH 10ML SYR IVF SCH ×4 (08:52→21:11)
[2018-03-20 13:03] VITALS: BP 118/75
[2018-03-20] MEDS: ERTAPENEM 1 GM in SODIUM CHLORIDE 0.9% 50 ML IV SCH (16:40)
[2018-03-20 20:16] VITALS: BP 123/85
[2018-03-21 02:00] VITALS: BP 138/87
[2018-03-21 05:01] VITALS: BP 132/85
[2018-03-21] MEDS: RIVAROXABAN 20 MG TABLET PO SCH (05:02)
[2018-03-21] MEDS: METOPROLOL TARTRATE 50 MG TABLET PO SCH ×2 (05:02→17:02)
[2018-03-21] MEDS ORDERED: methylPREDNISolone SOD SUCC 125 MG/2 ML IVPush STA (07:39)
[2018-03-21 07:55] VITALS: BP 132/79
[2018-03-21] MEDS: INSULIN GLARGINE 100 UNITS/ML, PEN SQ-INSULIN SCH ×2 (08:06→22:17)
[2018-03-21] MEDS: INSULIN LISPRO 100 UNITS/ML, PEN SQ-INSULIN SCH ×4 (08:06→22:17)
[2018-03-21] MEDS: GABAPENTIN 400 MG CAPSULE PO SCH ×3 (08:07→22:16)
[2018-03-21] MEDS: GUAIFENESIN ER 600 MG TABLET PO SCH ×2 (08:07→22:15)
[2018-03-21] MEDS: DILTIAZEM CD 180 MG CAP.ER.24H PO SCH (08:07)
[2018-03-21] MEDS: SODIUM CHLORIDE FLUSH 10ML SYR IVF SCH ×4 (08:08→22:21)
[2018-03-21] MEDS: OMEPRAZOLE 20 MG CAPSULE.DR PO SCH (08:08)
[2018-03-21] MEDS: DIGOXIN 0.25 MG TABLET PO SCH (08:08)
[2018-03-21] MEDS: ERTAPENEM 1 GM in SODIUM CHLORIDE 0.9% 50 ML IV SCH (15:46)
[2018-03-21 15:50] VITALS: BP 118/85
[2018-03-21 19:52] VITALS: BP 103/64
[2018-03-21] MEDS: ACETAMINOPHEN 325 MG TABLET PO PRN (22:16)
[2018-03-22] VITALS: BP 112/72
[2018-03-22 05:19] VITALS: BP 120/72
[2018-03-22] MEDS: RIVAROXABAN 20 MG TABLET PO SCH (05:23)
[2018-03-22] MEDS: METOPROLOL TARTRATE 50 MG TABLET PO SCH ×2 (05:23→17:08)
[2018-03-22] MEDS: INSULIN LISPRO 100 UNITS/ML, PEN SQ-INSULIN SCH ×4 (07:00→21:36)
[2018-03-22 07:43] VITALS: BP 124/82
[2018-03-22] MEDS: INSULIN GLARGINE 100 UNITS/ML, PEN SQ-INSULIN SCH ×2 (08:17→21:35)
[2018-03-22] MEDS: DILTIAZEM CD 180 MG CAP.ER.24H PO SCH (08:18)
[2018-03-22] MEDS: GABAPENTIN 400 MG CAPSULE PO SCH ×3 (08:18→21:14)
[2018-03-22] MEDS: OMEPRAZOLE 20 MG CAPSULE.DR PO SCH (08:19)
[2018-03-22] MEDS: SODIUM CHLORIDE FLUSH 10ML SYR IVF SCH ×4 (08:19→21:14)
[2018-03-22] MEDS: DIGOXIN 0.25 MG TABLET PO SCH (08:19)
[2018-03-22] MEDS: GUAIFENESIN ER 600 MG TABLET PO SCH ×2 (08:19→21:14)
[2018-03-22] MEDS: ERTAPENEM 1 GM in SODIUM CHLORIDE 0.9% 50 ML IV SCH (15:46)
[2018-03-22 21:03] VITALS: BP 122/79
[2018-03-22] MEDS: ACETAMINOPHEN 325 MG TABLET PO PRN (21:35)
[2018-03-23 00:50] VITALS: BP 121/85
[2018-03-23 06:00] VITALS: BP 136/87
[2018-03-23] MEDS: RIVAROXABAN 20 MG TABLET PO SCH (06:02)
[2018-03-23] MEDS: METOPROLOL TARTRATE 50 MG TABLET PO SCH ×2 (06:02→17:28)
[2018-03-23] MEDS: ACETAMINOPHEN 325 MG TABLET PO PRN (06:03)
[2018-03-23 07:00] VITALS: BP 126/80
[2018-03-23] MEDS ORDERED: INSU100I13 SQ-INSULIN (07:01)
[2018-03-23] MEDS ORDERED: DOCU-131 PO (07:01)
[2018-03-23] MEDS ORDERED: METO50TA82 PO ×2 (07:01)
[2018-03-23] MEDS ORDERED: INSU100I11 SQ-INSULIN (07:01)
[2018-03-23] MEDS ORDERED: DIGO250T PO (07:01)
[2018-03-23] MEDS: INSULIN GLARGINE 100 UNITS/ML, PEN SQ-INSULIN SCH (09:00)
[2018-03-23] MEDS: INSULIN LISPRO 100 UNITS/ML, PEN SQ-INSULIN SCH ×3 (09:00→16:00)
[2018-03-23] MEDS: SODIUM CHLORIDE FLUSH 10ML SYR IVF SCH ×2 (09:00)
[2018-03-23] MEDS: DILTIAZEM CD 180 MG CAP.ER.24H PO SCH (09:01)
[2018-03-23] MEDS: GABAPENTIN 400 MG CAPSULE PO SCH ×2 (09:01→17:28)
[2018-03-23] MEDS: OMEPRAZOLE 20 MG CAPSULE.DR PO SCH (09:01)
[2018-03-23] MEDS: GUAIFENESIN ER 600 MG TABLET PO SCH (09:01)
[2018-03-23] MEDS: DIGOXIN 0.25 MG TABLET PO SCH (09:01)
[2018-03-23 13:35] VITALS: BP 97/60
[2018-03-23] MEDS: ERTAPENEM 1 GM in SODIUM CHLORIDE 0.9% 50 ML IV SCH (15:30)
== END 2018-03-23 19:08 | disposition home or self-care (01) | DRG 871 ==
LOC: ED 16:15 → EDIP 17:25 → 4EST 23:22 → 4WST 03-13 16:21
PROVIDERS: ADMIT Hospitalist; ATTEND Internal Medicine
DX: A41.9 Sepsis, unspecified organism (principal); J96.01 Acute respiratory failure with hypoxia; D68.69 Other thrombophilia; J44.1 Chronic obstructive pulmonary disease with (acute) exacerbation; N39.0 Urinary tract infection, site not specified; J98.11 Atelectasis; E11.9 Type 2 diabetes mellitus without complications; E66.01 Morbid (severe) obesity due to excess calories; E78.5 Hyperlipidemia, unspecified; E87.6 Hypokalemia; F17.210 Nicotine dependence, cigarettes, uncomplicated; I11.0 Hypertensive heart disease with heart failure; I27.20 Pulmonary hypertension, unspecified; I48.2 Chronic atrial fibrillation; I50.9 Heart failure, unspecified; K21.9 Gastro-esophageal reflux disease without esophagitis; Z86.14 Personal history of Methicillin resistant Staphylococcus aureus infection; Z90.710 Acquired absence of both cervix and uterus; Z91.14 Patient's other noncompliance with medication regimen; Z95.0 Presence of cardiac pacemaker; Z68.38 Body mass index [BMI] 38.0-38.9, adult; B96.20 Unspecified Escherichia coli [E. coli] as the cause of diseases classified elsewhere; Z16.12 Extended spectrum beta lactamase (ESBL) resistance
CPT/HCPCS: 36415; 84145; 99285; J7613; J7620; 71045; 71250; 80047; 80048; 80053; 80307; 81001; 82040; 82947; 82962; 83605; 83735; 83880; 84100; 84443; 84484; 85025; 87040; 87077; 87086; 87184; 87186; 93005; 94640; G0378; J0456; J0610; J0696; J1335; J1815; J2060; J2930; J7050; J7512

== ENCOUNTER 2018-04-06 15:56 | Emergency (ER) | payer MEDICAID ==
[~2018-04-06] VITALS: Ht 170.2 cm; Wt 115.0 kg
[~2018-04-06 15:56] MED LIST changes: +ACET325T14 PO; +DOCU-131 PO; +ERTA1VIA IV; +GUAI600T31 PO; +INSU100I13 SQ-INSULIN; +IPRA3AMP30 NPPB; +IPRA4AER INH; +METO50TA82 PO; +PRED5TAB PO
[2018-04-06 16:02] VITALS: BP 111/60
[2018-04-06] MEDS ORDERED: ALBUTEROL/IPRATROPIUM 2.5MG/0.5MG, 3 ML NPPB SCH (16:30)
[2018-04-06 17:27] LABS: MEAN CORPUSCULAR HEMOGLOBIN 26.5 pg (27.0-34.8); MEAN CORPUSCULAR HGB CONC 32.8 g/dL (32.4-35.8); MEAN CORPUSCULAR VOLUME 80.8 fL (80-100); MEAN PLATELET VOLUME 7.8 fL (7.4-10.4); PLATELET COUNT 285 x10^3/uL (130-400); RED BLOOD COUNT 5.03 x10^6/uL (3.82-5.3); RED CELL DISTRIBUTION WIDTH 20.1 % (9.6-15.2)
[2018-04-06 17:42] LABS: ALBUMIN 2.9 g/dL (3.4-5.0); ANION GAP 16 mmol/L (5-15); CHLORIDE 101 mmol/L (98-107); CREATININE 0.72 mg/dL (0.55-1.02)
[2018-04-06 18:18] LABS: MD YES
[2018-04-06 18:22] LABS: BAND#(MANUAL) 0.15 x10^3/uL; BANDS%(MANUAL) 3 % (0-7); EOS#(MANUAL) 0.05 x10^3/uL (0.0-0.4); EOS% (MANUAL) 1 % (1-7); LYMPH#(MANUAL) 2.55 x10^3/uL (1-3.4); LYMPHS% (MANUAL) 50 % (22-44); MONOS#(MANUAL) 0.26 x10^3/uL (0.3-2.7); MONOS% (MANUAL) 5 % (2-9); MYELOCYTES# (MANUAL) 0.05 x10^3/uL (0-0); MYELOCYTES% (MANUAL) 1 % (0-0); SEG#(MANUAL) 2.04 x10^3/uL (1.8-6.8); SEGS% (MANUAL) 40 % (42-75)
[2018-04-06 18:27] LABS: ANISOCYTOSIS 1+; MICROCYTOSIS 1+
[2018-04-06 18:28] LABS: <PLATELET ESTIMATE> ADEQUATE; <PLT MORPHOLOGY> NORMAL PLT MORPH; TEAR DROPS 1+
[2018-04-06] MEDS ORDERED: ALBUTEROL/IPRATROPIUM 2.5MG/0.5MG, 3 ML ONE (19:05)
== END 2018-04-06 20:07 | disposition home or self-care (01) ==
LOC: ED 19:46
DX: M25.511 Pain in right shoulder (principal); J96.11 Chronic respiratory failure with hypoxia; J43.9 Emphysema, unspecified; I48.91 Unspecified atrial fibrillation; E11.9 Type 2 diabetes mellitus without complications; K21.9 Gastro-esophageal reflux disease without esophagitis; I11.0 Hypertensive heart disease with heart failure; I50.9 Heart failure, unspecified; Z59.0 Homelessness; Z85.828 Personal history of other malignant neoplasm of skin; Z86.14 Personal history of Methicillin resistant Staphylococcus aureus infection
CPT/HCPCS: 36415; 71045; 73030; 80048; 82040; 85025; 93005; 94640; 99284; J7620

== ENCOUNTER 2018-04-11 21:26 | Inpatient (IN) | payer MEDICAID ==
[~2018-04-11] VITALS: Ht 170.2 cm; Wt 113.5 kg
[2018-04-11] MEDS ORDERED: methylPREDNISolone SOD SUCC 125 MG/2 ML IVP ONE (22:00)
[2018-04-11] MEDS ORDERED: ALBUTEROL SULFATE 2.5 MG/3 ML NPPB ONE (22:00)
[2018-04-11] MEDS ORDERED: ALBUTEROL SULFATE 2.5 MG/3 ML ONE (22:12)
--- NOTE | 2018-04-11 22:12 | NUR ---
ASSUMED CARE OF PATIENT. PATIENT REPORTS SHE IS HAVING SOB. PT IS COUGHING. VS STABLE. AGRICULTURAL EXTENSION AGENT ON. AFIB NOTED. PT HAS A HISTORY OF AFIB. PT ALSO REPORTS SHE HAS CELLULITIS TO HER LEFT FOOT AND HAS NOT BEEN TAKING CARE OF IT. WHEN ASKED ABOUT HER HEALTH PT STATES, "I DO NOT KNOW MY DOES." PT THEN STARTED TO CRY. DR SCHAEFER HAS SEEN PATIENT. WARM BLANKET GIVEN. CALL LIGHT IN PLACE. WILL CONTINUE TO MONITOR.
[2018-04-11] MEDS ORDERED: methylPREDNISolone SOD SUCC 125 MG/2 ML ONE (22:15)
[2018-04-11 22:26] LABS: BASOPHILS # (AUTO) 0.02 x10^3/uL (0-0.1); BASOPHILS % (AUTO) 0 % (0-1); EOSINOPHILS # (AUTO) 0.05 x10^3/uL (0-0.4); EOSINOPHILS % (AUTO) 1 % (1-7); LYMPHOCYTES # (AUTO) 3.65 x10^3/uL (1-3.4); LYMPHOCYTES % (AUTO) 46 % (22-44); MD NO; MEAN CORPUSCULAR HEMOGLOBIN 26.4 pg (27.0-34.8); MEAN CORPUSCULAR HGB CONC 32.9 g/dL (32.4-35.8); MEAN CORPUSCULAR VOLUME 80.4 fL (80-100); MEAN PLATELET VOLUME 7.4 fL (7.4-10.4); MONOCYTES # (AUTO) 0.48 x10^3/uL (0.2-0.8); MONOCYTES % (AUTO) 6 % (2-9); NEUTROPHILS # (AUTO) 3.75 x10^3/uL (1.8-6.8); NEUTROPHILS % (AUTO) 47 % (42-75); PLATELET COUNT 299 x10^3/uL (130-400); RED BLOOD COUNT 4.81 x10^6/uL (3.82-5.3); RED CELL DISTRIBUTION WIDTH 19.9 % (9.6-15.2)
--- NOTE | 2018-04-11 22:29 | NUR ---
PT SMELLS OF ETOH. PT REPORTS SHE IS NOT SURE IF SHE TAKING ALL OF HER MEDS. PT IS A POOR HISTORIAN. CALL LIGHT IN PLACE. WILL CONTINUE TO MONITOR.
[2018-04-11 22:39] LABS: ALANINE AMINOTRANSFERASE 31 U/L (12-78); ALBUMIN 2.7 g/dL (3.4-5.0); ANION GAP 13 mmol/L (5-15); CALCIUM 7.8 mg/dL (8.5-10.1); CHLORIDE 99 mmol/L (98-107)
[2018-04-11 22:43] LABS: ALKALINE PHOSPHATASE 119 U/L (45-117); BILIRUBIN,TOTAL 0.2 mg/dL (0.2-1.0); TOTAL PROTEIN 6.6 g/dL (6.4-8.2); TROPONIN I 0.019 ng/mL (0.000-0.045)
[2018-04-11] MEDS ORDERED: SODIUM CHLORIDE 0.9% 1,000ML IVBOLUS ONE (23:00)
--- NOTE | 2018-04-11 23:04 | NUR ---
PT RESTING IN ROOM WITH EYES CLOSED. NO ACUTE DISTRESS NOTED. WILL CONTINUE TO MONITOR.
--- NOTE | 2018-04-11 23:28 | NUR ---
PT RESTING IN ROOM. NO ACUTE DISTRESS NOTED. WILL CONTINUE TO MONITOR.
--- NOTE | 2018-04-12 00:16 | NUR ---
PT RSETING IN ROOM. NO ACUTE DISTRESS NOTED. WILL CONTINUE TO MONITOR.
--- NOTE | 2018-04-12 00:20 | NUR ---
PT REPORTS SHE SHOULD BE TAKING A BLOOD THINNER BUT SHE IS NOT. PARKING RAMP ATTENDANT AFIB NOTED. WILL CONTINUE TO MONITOR.
--- NOTE | 2018-04-12 01:17 | NUR ---
DR SCHAEFER AWARE OF VS. WAITING ORDERS
[2018-04-12] MEDS ORDERED: DILTIAZEM 5 MG/ML, 5ML ONE (01:41)
[2018-04-12] MEDS ORDERED: THIAMINE 100 MG/ML, 2ML ONE (01:41)
--- NOTE | 2018-04-12 01:41 | NUR ---
TASK RN: PT RESTING IN RNEY W/ EYES CLOSED. EVEN/REGULAR RESPIRATIONS NOTED. SPO2 >90% ON 2L BY NC. BP/SPO2/ECG MONITORING IN PLACE. AFIB RVR ON MONITOR, RATE 140'S.
--- NOTE | 2018-04-12 01:48 | NUR ---
DILT AND THIAMINE GIVEN PER ORDER. PT SLEEPING QUIETLY, HR DECREASE FROM 140-150 AFTER DILT TO 90'S-110, REMAIN FIB. AWAIOT ADMISSION AND ROOM ASSIGMENET.
--- NOTE | 2018-04-12 01:51 | NUR ---
LAB AT BEDSIDE TO REDRAW REPEAT LACTIC.
[2018-04-12] MEDS ORDERED: ONDANSETRON 2MG/ML, 2ML IVPush PRN ×2 (02:00→04:30)
[2018-04-12] MEDS ORDERED: DILTIAZEM 5 MG/ML, 5ML IVPush ONE ×3 (02:00→02:30)
[2018-04-12] MEDS ORDERED: THIAMINE 100 MG in SODIUM CHLORIDE 0.9% 50 ML IVPB ONE (02:00)
--- NOTE | 2018-04-12 02:07 | NUR ---
2ND DOSE OF CARDIZEM PER ORDER. HR INCREASE TO 110-140'S, WILL RE-EVAL. PT SLEEPING QUIETLY, RESP RATE EVEN AND REG.
--- NOTE | 2018-04-12 02:25 | NUR ---
DR SCHAEFER AWARE OF FSBS NO NEW ORDERS AT THIS TIME
[2018-04-12 03:05] VITALS: BP 141/80
[2018-04-12] MEDS ORDERED: SODIUM CHLORIDE 0.9% 1,000 ML IV SCH (04:14)
[2018-04-12] MEDS ORDERED: POLYETHYLENE GLYCOL 17 GM PACKET PO PRN (04:30)
[2018-04-12] MEDS ORDERED: methylPREDNISolone SOD SUCC 40 MG/ML IVPush SCH (04:30)
[2018-04-12] MEDS ORDERED: ALBUTEROL/IPRATROPIUM 2.5MG/0.5MG, 3 ML NPPB PRN (04:30)
[2018-04-12] MEDS ORDERED: GUAIFENESIN/DM 200-20MG, 10ML UDC PO PRN (04:30)
[2018-04-12] MEDS ORDERED: DEXTROSE 50%, 50ML SYRINGE IVPush PRN (05:30)
[2018-04-12] MEDS ORDERED: DEXTROSE 4 GM TAB.CHEW PO PRN (05:30)
[2018-04-12] MEDS ORDERED: GLUCAGON 1 MG IM PRN (05:30)
[2018-04-12] MEDS: ENOXAPARIN 40 MG/0.4 ML SQ SCH (05:53)
[2018-04-12] MEDS: DILTIAZEM 125 MG in SODIUM CHLORIDE 0.9% 100 ML IV SCH ×3 (06:12→12:35)
[2018-04-12 06:16] LABS: MICROSCOPIC AUTO
[2018-04-12 06:19] LABS: CULTURE INDICATED? YES
[2018-04-12 07:24] VITALS: BP 119/75
[2018-04-12] MEDS ORDERED: INSULIN GLARGINE 100 UNITS/ML, PEN SQ-INSULIN SCH (09:00)
[2018-04-12] MEDS ORDERED: METOPROLOL TARTRATE 50 MG TABLET PO SCH (09:00)
[2018-04-12] MEDS: OMEPRAZOLE 20 MG CAPSULE.DR PO SCH (09:25)
[2018-04-12] MEDS: INSULIN LISPRO 100 UNITS/ML, PEN SQ-INSULIN SCH ×4 (09:25→21:35)
[2018-04-12] MEDS: GABAPENTIN 400 MG CAPSULE PO SCH ×3 (09:26→21:27)
[2018-04-12] MEDS: SODIUM CHLORIDE FLUSH 10ML SYR IVF SCH ×2 (09:27→21:26)
[2018-04-12] MEDS: BUDESONIDE 0.5 MG/2 ML INHA NPPB SCH ×2 (09:30→20:46)
[2018-04-12] MEDS: ALBUTEROL/IPRATROPIUM 2.5MG/0.5MG, 3 ML NPPB SCH ×4 (09:30→20:40)
[2018-04-12] MEDS: DIGOXIN 0.25 MG TABLET PO SCH (12:19)
[2018-04-12] MEDS: DOXYCYCLINE 100MG TABLET PO SCH ×2 (12:19→21:28)
[2018-04-12 12:20] VITALS: BP 125/71
[2018-04-12] MEDS ORDERED: METOPROLOL TARTRATE 100 MG TABLET ONE ×2 (14:16→14:22)
[2018-04-12] MEDS ORDERED: METOPROLOL TARTRATE 50 MG TABLET PO ONE (14:30)
[2018-04-12] MEDS ORDERED: CEFTRIAXONE PMX 2GM/50ML 50 ML IV SCH (14:30)
[2018-04-12] MEDS: methylPREDNISolone SOD SUCC 40 MG/ML IVPush SCH ×2 (16:07→22:52)
[2018-04-12] MEDS: CEFTRIAXONE PMX 2GM/50ML 50 ML IV SCH (16:36)
[2018-04-12 18:42] VITALS: BP 110/73
[2018-04-12] MEDS: METOPROLOL TARTRATE 50 MG TABLET PO SCH (21:00)
[2018-04-12] MEDS: INSULIN GLARGINE 100 UNITS/ML, PEN SQ-INSULIN SCH (21:36)
[2018-04-13 01:19] VITALS: BP 119/74
[2018-04-13] MEDS: DILTIAZEM 125 MG in SODIUM CHLORIDE 0.9% 100 ML IV SCH (02:21)
[2018-04-13] MEDS: ENOXAPARIN 40 MG/0.4 ML SQ SCH (04:43)
[2018-04-13] MEDS: methylPREDNISolone SOD SUCC 40 MG/ML IVPush SCH ×4 (04:43→22:17)
[2018-04-13 05:03] LABS: BASOPHILS # (AUTO) 0.02 x10^3/uL (0-0.1); BASOPHILS % (AUTO) 0 % (0-1); EOSINOPHILS % (AUTO) 0 % (1-7); LYMPHOCYTES # (AUTO) 1.16 x10^3/uL (1-3.4); LYMPHOCYTES % (AUTO) 12 % (22-44); MD NO; MEAN CORPUSCULAR HEMOGLOBIN 26.7 pg (27.0-34.8); MEAN CORPUSCULAR HGB CONC 32.7 g/dL (32.4-35.8); MEAN CORPUSCULAR VOLUME 81.5 fL (80-100); MEAN PLATELET VOLUME 7.9 fL (7.4-10.4); MONOCYTES # (AUTO) 0.14 x10^3/uL (0.2-0.8); MONOCYTES % (AUTO) 1 % (2-9); NEUTROPHILS # (AUTO) 8.62 x10^3/uL (1.8-6.8); NEUTROPHILS % (AUTO) 87 % (42-75); PLATELET COUNT 261 x10^3/uL (130-400); RED BLOOD COUNT 4.19 x10^6/uL (3.82-5.3); RED CELL DISTRIBUTION WIDTH 20.2 % (9.6-15.2)
[2018-04-13 05:08] LABS: ANION GAP 7 mmol/L (5-15); CALCIUM 7.9 mg/dL (8.5-10.1); CHLORIDE 100 mmol/L (98-107)
[2018-04-13 05:10] LABS: CREATININE 0.86 mg/dL (0.55-1.02)
[2018-04-13] MEDS: ALBUTEROL/IPRATROPIUM 2.5MG/0.5MG, 3 ML NPPB SCH ×4 (07:00→19:13)
[2018-04-13 07:09] VITALS: BP 147/81
[2018-04-13] MEDS: BUDESONIDE 0.5 MG/2 ML INHA NPPB SCH ×2 (09:00→12:27)
[2018-04-13] MEDS: GABAPENTIN 400 MG CAPSULE PO SCH ×3 (09:07→21:55)
[2018-04-13] MEDS: DOXYCYCLINE 100MG TABLET PO SCH ×2 (09:07→21:54)
[2018-04-13] MEDS: OMEPRAZOLE 20 MG CAPSULE.DR PO SCH (09:07)
[2018-04-13] MEDS: INSULIN GLARGINE 100 UNITS/ML, PEN SQ-INSULIN SCH ×2 (09:08→22:17)
[2018-04-13] MEDS: DIGOXIN 0.25 MG TABLET PO SCH (09:08)
[2018-04-13] MEDS: INSULIN LISPRO 100 UNITS/ML, PEN SQ-INSULIN SCH ×4 (09:09→22:16)
[2018-04-13] MEDS: SODIUM CHLORIDE FLUSH 10ML SYR IVF SCH ×2 (09:10→21:54)
[2018-04-13] MEDS: METOPROLOL TARTRATE 50 MG TABLET PO SCH ×3 (09:11→21:54)
[2018-04-13 13:07] VITALS: BP 123/64
[2018-04-13] MEDS ORDERED: POTASSIUM PHOSPHATE 44 MEQ in SODIUM CHLORIDE 0.9% 500 ML IV ONE (13:30)
[2018-04-13] MEDS ORDERED: MAGNESIUM SULFATE 4 GM in SODIUM CHLORIDE 0.9% 100 ML IV ONE (13:30)
[2018-04-13 13:54] LABS: HEMOGLOBIN A1C 8.3 % (4.2-6.3)
[2018-04-13] MEDS: ASPIRIN 325 MG TABLET PO SCH (14:14)
[2018-04-13] MEDS: CEFTRIAXONE PMX 2GM/50ML 50 ML IV SCH (16:46)
[2018-04-13 20:52] VITALS: BP 151/89
[2018-04-14 04:20] VITALS: BP 159/96
[2018-04-14] MEDS: ASPIRIN 325 MG TABLET PO SCH (04:44)
[2018-04-14] MEDS: methylPREDNISolone SOD SUCC 40 MG/ML IVPush SCH ×3 (04:44→17:16)
[2018-04-14] MEDS: ENOXAPARIN 40 MG/0.4 ML SQ SCH (04:44)
[2018-04-14 05:49] LABS: ANION GAP 5 mmol/L (5-15); CALCIUM 8.1 mg/dL (8.5-10.1); CHLORIDE 101 mmol/L (98-107); CREATININE 0.64 mg/dL (0.55-1.02)
[2018-04-14 07:34] VITALS: BP 158/105
[2018-04-14] MEDS: ALBUTEROL/IPRATROPIUM 2.5MG/0.5MG, 3 ML NPPB SCH (08:34)
[2018-04-14] MEDS: BUDESONIDE 0.5 MG/2 ML INHA NPPB SCH ×2 (08:35→20:17)
[2018-04-14] MEDS: SODIUM CHLORIDE FLUSH 10ML SYR IVF SCH ×2 (09:00→21:04)
[2018-04-14] MEDS: GABAPENTIN 400 MG CAPSULE PO SCH ×3 (09:25→21:03)
[2018-04-14] MEDS: OMEPRAZOLE 20 MG CAPSULE.DR PO SCH (09:25)
[2018-04-14] MEDS: DOXYCYCLINE 100MG TABLET PO SCH ×2 (09:25→21:03)
[2018-04-14] MEDS: DIGOXIN 0.25 MG TABLET PO SCH (09:26)
[2018-04-14] MEDS: METOPROLOL TARTRATE 50 MG TABLET PO SCH ×2 (09:26→21:04)
[2018-04-14] MEDS: INSULIN LISPRO 100 UNITS/ML, PEN SQ-INSULIN SCH ×4 (09:30→21:16)
[2018-04-14] MEDS: INSULIN GLARGINE 100 UNITS/ML, PEN SQ-INSULIN SCH ×2 (09:31→21:17)
[2018-04-14] MEDS ORDERED: ALBUTEROL/IPRATROPIUM 2.5MG/0.5MG, 3 ML NPPB PRN (12:30)
[2018-04-14 12:41] VITALS: BP 143/78
[2018-04-14] MEDS: CEFTRIAXONE PMX 2GM/50ML 50 ML IV SCH (17:07)
[2018-04-14 19:48] VITALS: BP 188/106
[2018-04-14] MEDS: hydrALAzine 20 MG/ML, 1ML IVPush PRN (21:17)
[2018-04-15 00:04] VITALS: BP 172/86
[2018-04-15] MEDS: methylPREDNISolone SOD SUCC 40 MG/ML IVPush SCH ×4 (00:08→17:13)
[2018-04-15] MEDS: hydrALAzine 20 MG/ML, 1ML IVPush PRN (02:01)
[2018-04-15] MEDS: ASPIRIN 325 MG TABLET PO SCH (05:30)
[2018-04-15] MEDS: ENOXAPARIN 40 MG/0.4 ML SQ SCH (05:30)
[2018-04-15 06:58] VITALS: BP 156/113
[2018-04-15] MEDS: INSULIN LISPRO 100 UNITS/ML, PEN SQ-INSULIN SCH ×4 (07:33→20:36)
[2018-04-15] MEDS: GABAPENTIN 400 MG CAPSULE PO SCH ×3 (08:59→20:32)
[2018-04-15] MEDS: SODIUM CHLORIDE FLUSH 10ML SYR IVF SCH ×2 (09:00→20:32)
[2018-04-15] MEDS: OMEPRAZOLE 20 MG CAPSULE.DR PO SCH (09:00)
[2018-04-15] MEDS: METOPROLOL TARTRATE 50 MG TABLET PO SCH (09:00)
[2018-04-15] MEDS: DOXYCYCLINE 100MG TABLET PO SCH ×2 (09:00→20:31)
[2018-04-15] MEDS: DIGOXIN 0.25 MG TABLET PO SCH (09:01)
[2018-04-15] MEDS: BUDESONIDE 0.5 MG/2 ML INHA NPPB SCH ×2 (10:00→21:00)
[2018-04-15] MEDS: INSULIN GLARGINE 100 UNITS/ML, PEN SQ-INSULIN SCH ×2 (10:33→20:36)
[2018-04-15 13:17] VITALS: BP 138/87
[2018-04-15] MEDS: CEFTRIAXONE PMX 2GM/50ML 50 ML IV SCH (17:33)
[2018-04-15 18:56] VITALS: BP 142/72
[2018-04-15] MEDS ORDERED: METOPROLOL TARTRATE 50 MG TABLET PO ONE ×2 (19:30→20:00)
[2018-04-15] MEDS ORDERED: METOPROLOL TARTRATE 50 MG TABLET PO SCH (21:00)
[2018-04-15 22:20] VITALS: BP 172/102
[2018-04-15] MEDS ORDERED: DILTIAZEM 5 MG/ML, 5ML IVPush ONE (22:30)
[2018-04-16] MEDS: methylPREDNISolone SOD SUCC 40 MG/ML IVPush SCH ×3 (00:34→11:34)
[2018-04-16 00:38] VITALS: BP 140/90
[2018-04-16] MEDS: ENOXAPARIN 40 MG/0.4 ML SQ SCH (04:50)
[2018-04-16] MEDS: ASPIRIN 325 MG TABLET PO SCH (06:20)
[2018-04-16] MEDS: GABAPENTIN 400 MG CAPSULE PO SCH ×3 (08:35→21:04)
[2018-04-16] MEDS: DOXYCYCLINE 100MG TABLET PO SCH ×2 (08:36→21:04)
[2018-04-16] MEDS: DIGOXIN 0.25 MG TABLET PO SCH (08:36)
[2018-04-16] MEDS: METOPROLOL TARTRATE 100 MG TABLET PO SCH ×2 (08:37→21:04)
[2018-04-16] MEDS: OMEPRAZOLE 20 MG CAPSULE.DR PO SCH (08:38)
[2018-04-16] MEDS: INSULIN LISPRO 100 UNITS/ML, PEN SQ-INSULIN SCH ×4 (08:39→21:09)
[2018-04-16] MEDS: INSULIN GLARGINE 100 UNITS/ML, PEN SQ-INSULIN SCH ×2 (08:39→21:10)
[2018-04-16 08:42] VITALS: BP 125/91
[2018-04-16] MEDS: SODIUM CHLORIDE FLUSH 10ML SYR IVF SCH ×2 (09:00→21:04)
[2018-04-16] MEDS: BUDESONIDE 0.5 MG/2 ML INHA NPPB SCH ×2 (11:40→21:00)
[2018-04-16 15:40] VITALS: BP 160/84
[2018-04-16] MEDS: CEFTRIAXONE PMX 2GM/50ML 50 ML IV SCH (16:47)
[2018-04-16 18:33] VITALS: BP 167/96
[2018-04-17 03:00] VITALS: BP 162/93
[2018-04-17] MEDS: ASPIRIN 325 MG TABLET PO SCH (05:22)
[2018-04-17] MEDS: ENOXAPARIN 40 MG/0.4 ML SQ SCH (05:22)
[2018-04-17 05:46] LABS: ANION GAP 3 mmol/L (5-15); CALCIUM 8.4 mg/dL (8.5-10.1); CHLORIDE 101 mmol/L (98-107)
[2018-04-17 05:47] LABS: CREATININE 0.67 mg/dL (0.55-1.02)
[2018-04-17] MEDS: INSULIN LISPRO 100 UNITS/ML, PEN SQ-INSULIN SCH ×4 (07:00→20:10)
[2018-04-17 07:15] VITALS: BP 171/100
[2018-04-17] MEDS: BUDESONIDE 0.5 MG/2 ML INHA NPPB SCH (07:40)
[2018-04-17] MEDS: DIGOXIN 0.25 MG TABLET PO SCH (08:49)
[2018-04-17] MEDS: DOXYCYCLINE 100MG TABLET PO SCH ×2 (08:49→20:05)
[2018-04-17] MEDS: OMEPRAZOLE 20 MG CAPSULE.DR PO SCH (08:49)
[2018-04-17] MEDS: GABAPENTIN 400 MG CAPSULE PO SCH ×3 (08:49→20:06)
[2018-04-17] MEDS: INSULIN GLARGINE 100 UNITS/ML, PEN SQ-INSULIN SCH ×2 (08:50→20:09)
[2018-04-17] MEDS: SODIUM CHLORIDE FLUSH 10ML SYR IVF SCH ×2 (08:50→20:06)
[2018-04-17] MEDS: METOPROLOL TARTRATE 100 MG TABLET PO SCH ×2 (08:52→20:05)
[2018-04-17 13:30] VITALS: BP 153/94
[2018-04-17] MEDS: CEFTRIAXONE PMX 2GM/50ML 50 ML IV SCH (16:32)
[2018-04-17 19:06] VITALS: BP 136/80
[2018-04-18 01:05] VITALS: BP 152/97
[2018-04-18] MEDS: ENOXAPARIN 40 MG/0.4 ML SQ SCH (05:19)
[2018-04-18] MEDS: ASPIRIN 325 MG TABLET PO SCH (05:19)
[2018-04-18] MEDS: INSULIN LISPRO 100 UNITS/ML, PEN SQ-INSULIN SCH ×4 (07:00→21:14)
[2018-04-18 07:25] VITALS: BP 155/93
[2018-04-18] MEDS: SODIUM CHLORIDE FLUSH 10ML SYR IVF SCH ×2 (09:00→21:06)
[2018-04-18] MEDS: BUDESONIDE 0.5 MG/2 ML INHA NPPB SCH ×4 (09:00→21:00)
[2018-04-18] MEDS: OMEPRAZOLE 20 MG CAPSULE.DR PO SCH (10:09)
[2018-04-18] MEDS: METOPROLOL TARTRATE 100 MG TABLET PO SCH ×2 (10:10→21:05)
[2018-04-18] MEDS: DIGOXIN 0.25 MG TABLET PO SCH (10:10)
[2018-04-18] MEDS: DOXYCYCLINE 100MG TABLET PO SCH ×2 (10:10→21:06)
[2018-04-18] MEDS: GABAPENTIN 400 MG CAPSULE PO SCH ×3 (10:10→21:05)
[2018-04-18] MEDS: INSULIN GLARGINE 100 UNITS/ML, PEN SQ-INSULIN SCH ×2 (10:17→21:15)
[2018-04-18 14:11] VITALS: BP 142/79
[2018-04-18] MEDS: CEFTRIAXONE PMX 2GM/50ML 50 ML IV SCH (16:33)
[2018-04-18 19:26] VITALS: BP 107/74
[2018-04-19 02:25] VITALS: BP 155/95
[2018-04-19] MEDS: ENOXAPARIN 40 MG/0.4 ML SQ SCH (05:21)
[2018-04-19] MEDS: ASPIRIN 325 MG TABLET PO SCH (05:22)
[2018-04-19] MEDS: INSULIN LISPRO 100 UNITS/ML, PEN SQ-INSULIN SCH ×4 (07:00→21:22)
[2018-04-19 07:25] VITALS: BP 171/93
[2018-04-19] MEDS: GABAPENTIN 400 MG CAPSULE PO SCH ×3 (07:55→21:17)
[2018-04-19] MEDS: DIGOXIN 0.25 MG TABLET PO SCH (07:55)
[2018-04-19] MEDS: DOXYCYCLINE 100MG TABLET PO SCH ×2 (07:55→21:18)
[2018-04-19] MEDS: OMEPRAZOLE 20 MG CAPSULE.DR PO SCH (07:55)
[2018-04-19] MEDS: METOPROLOL TARTRATE 100 MG TABLET PO SCH ×2 (07:56→21:18)
[2018-04-19] MEDS: SODIUM CHLORIDE FLUSH 10ML SYR IVF SCH ×2 (07:56→21:18)
[2018-04-19] MEDS: BUDESONIDE 0.5 MG/2 ML INHA NPPB SCH ×3 (09:00→20:31)
[2018-04-19] MEDS: INSULIN GLARGINE 100 UNITS/ML, PEN SQ-INSULIN SCH ×2 (11:13→21:23)
[2018-04-19 13:35] VITALS: BP 144/85
[2018-04-19] MEDS: CEFTRIAXONE PMX 2GM/50ML 50 ML IV SCH (16:34)
[2018-04-19 18:43] VITALS: BP 130/68
[2018-04-20] MEDS: ACETAMINOPHEN 325 MG TABLET PO PRN ×3 (01:14→21:30)
[2018-04-20 02:07] VITALS: BP 127/90
[2018-04-20] MEDS: ASPIRIN 325 MG TABLET PO SCH (05:14)
[2018-04-20] MEDS: ENOXAPARIN 40 MG/0.4 ML SQ SCH (05:14)
[2018-04-20 07:00] VITALS: BP 107/70
[2018-04-20] MEDS: INSULIN LISPRO 100 UNITS/ML, PEN SQ-INSULIN SCH ×4 (07:00→21:31)
[2018-04-20] MEDS: BUDESONIDE 0.5 MG/2 ML INHA NPPB SCH ×2 (11:00→20:35)
[2018-04-20] MEDS: METOPROLOL TARTRATE 100 MG TABLET PO SCH ×2 (11:14→21:30)
[2018-04-20] MEDS: DOXYCYCLINE 100MG TABLET PO SCH ×2 (11:15→21:30)
[2018-04-20] MEDS: GABAPENTIN 400 MG CAPSULE PO SCH ×3 (11:15→21:30)
[2018-04-20] MEDS: DIGOXIN 0.25 MG TABLET PO SCH (11:15)
[2018-04-20] MEDS: OMEPRAZOLE 20 MG CAPSULE.DR PO SCH (11:15)
[2018-04-20] MEDS: SODIUM CHLORIDE FLUSH 10ML SYR IVF SCH ×2 (11:17→21:30)
[2018-04-20] MEDS: INSULIN GLARGINE 100 UNITS/ML, PEN SQ-INSULIN SCH ×2 (11:18→21:32)
[2018-04-20 13:53] VITALS: BP 122/78
[2018-04-20] MEDS: CEFTRIAXONE PMX 2GM/50ML 50 ML IV SCH (16:27)
[2018-04-20 19:06] VITALS: BP 132/86
[2018-04-21 01:38] VITALS: BP 146/84
[2018-04-21] MEDS: ASPIRIN 325 MG TABLET PO SCH (05:20)
[2018-04-21] MEDS: ENOXAPARIN 40 MG/0.4 ML SQ SCH (05:20)
[2018-04-21] MEDS: INSULIN LISPRO 100 UNITS/ML, PEN SQ-INSULIN SCH ×2 (07:00→11:24)
[2018-04-21 07:01] VITALS: BP 138/81
[2018-04-21] MEDS: METOPROLOL TARTRATE 100 MG TABLET PO SCH (08:07)
[2018-04-21] MEDS: GABAPENTIN 400 MG CAPSULE PO SCH (08:07)
[2018-04-21] MEDS: OMEPRAZOLE 20 MG CAPSULE.DR PO SCH (08:07)
[2018-04-21] MEDS: DOXYCYCLINE 100MG TABLET PO SCH (08:07)
[2018-04-21] MEDS: DIGOXIN 0.25 MG TABLET PO SCH (08:07)
[2018-04-21] MEDS: SODIUM CHLORIDE FLUSH 10ML SYR IVF SCH (08:07)
[2018-04-21] MEDS: BUDESONIDE 0.5 MG/2 ML INHA NPPB SCH (09:00)
[2018-04-21] MEDS ORDERED: IPRA3AMP30 INH (10:07)
[2018-04-21] MEDS ORDERED: INSU100I13 SQ-INSULIN (10:07)
[2018-04-21] MEDS ORDERED: SIMV40TA PO (10:07)
[2018-04-21] MEDS ORDERED: PRED10TA PO (10:07)
[2018-04-21] MEDS ORDERED: BUDE10.22 INH (10:07)
[2018-04-21] MEDS ORDERED: METO50TA82 PO (10:07)
[2018-04-21] MEDS ORDERED: ASPI325T17 PO (10:07)
[2018-04-21] MEDS ORDERED: DIGO250T PO (10:07)
[2018-04-21] MEDS ORDERED: OMEP-110 PO (10:07)
[2018-04-21] MEDS ORDERED: IPRA4AER INH (10:07)
[2018-04-21] MEDS ORDERED: DILT360T PO (10:23)
[2018-04-21] MEDS: INSULIN GLARGINE 100 UNITS/ML, PEN SQ-INSULIN SCH (11:24)
== END 2018-04-21 14:10 | disposition home or self-care (01) | DRG 189 ==
LOC: ED 22:23 → EDIP 04-12 01:44 → 5SO 04-12 03:01
PROVIDERS: ADMIT Hospitalist; ATTEND Internal Medicine
DX: J96.01 Acute respiratory failure with hypoxia (principal); E43 Unspecified severe protein-calorie malnutrition; I50.21 Acute systolic (congestive) heart failure; J44.1 Chronic obstructive pulmonary disease with (acute) exacerbation; D68.69 Other thrombophilia; N39.0 Urinary tract infection, site not specified; E87.2 Acidosis; I48.2 Chronic atrial fibrillation; K21.9 Gastro-esophageal reflux disease without esophagitis; E11.65 Type 2 diabetes mellitus with hyperglycemia; B96.20 Unspecified Escherichia coli [E. coli] as the cause of diseases classified elsewhere; E66.01 Morbid (severe) obesity due to excess calories; I27.20 Pulmonary hypertension, unspecified; E78.5 Hyperlipidemia, unspecified; E83.42 Hypomagnesemia; E87.6 Hypokalemia; F10.120 Alcohol abuse with intoxication, uncomplicated; I11.0 Hypertensive heart disease with heart failure; M85.80 Other specified disorders of bone density and structure, unspecified site; Z59.0 Homelessness; Z91.14 Patient's other noncompliance with medication regimen; Z68.39 Body mass index [BMI] 39.0-39.9, adult; Z87.891 Personal history of nicotine dependence; Z95.0 Presence of cardiac pacemaker; Z79.4 Long term (current) use of insulin; Z86.14 Personal history of Methicillin resistant Staphylococcus aureus infection; Z90.710 Acquired absence of both cervix and uterus; Z89.021 Acquired absence of right finger(s); Z88.0 Allergy status to penicillin; Z88.1 Allergy status to other antibiotic agents
CPT/HCPCS: 36415; 99291; J7613; J7620; J7626; 71045; 80048; 80053; 80307; 81001; 82962; 83036; 83605; 83735; 83880; 84100; 84484; 85025; 87040; 87077; 87086; 87186; 90656; 93005; 94640; 96365; 96375; C8929; G0378; J0696; J1650; J3411; J3475; J0360; J1815; J2920; J2930; J7030; J7040; J7512

== ENCOUNTER 2018-04-23 21:36 | Inpatient (IN) | payer MEDICAID ==
[~2018-04-23] VITALS: Ht 170.2 cm; Wt 111.0 kg
[~2018-04-23 21:36] MED LIST changes: +ASPI325T17 PO; +PRED10TA PO; +SIMV40TA PO
--- NOTE | 2018-04-23 22:15 | NUR ---
PT BROUGHT BACK TO ROOM VIA WHEELCHAIR, C/O SOB BREATH AND HER A-FIB BOTHERING HER. SKIN APPROPIATE COLOR FOR ETHNICTY, PT ANXIOUS AND GRUNTING. PLACE ON MONITOR, IV ESTABLISHED WITH ULTRASOUND BY SHERIF SANTIZO. PT IN A-FIB WITH RVR
[2018-04-23] MEDS ORDERED: ONDANSETRON 2MG/ML, 2ML ONE (22:17)
[2018-04-23] MEDS ORDERED: ASPIRIN 81 MG TABLET CHEW ONE (22:17)
[2018-04-23] MEDS ORDERED: LORazepam 2 MG/ML, 1ML ONE (22:18)
[2018-04-23] MEDS ORDERED: MORPHINE SULFATE 4 MG/ML, 1ML ONE (22:18)
[2018-04-23] MEDS ORDERED: DILTIAZEM 5 MG/ML, 5ML ONE ×2 (22:19→23:14)
[2018-04-23] MEDS ORDERED: ONDANSETRON 2MG/ML, 2ML IVPush ONE (22:30)
[2018-04-23] MEDS ORDERED: LORazepam 2 MG/ML, 1ML IVPush ONE (22:30)
[2018-04-23] MEDS ORDERED: DILTIAZEM 5 MG/ML, 5ML IV ONE (22:30)
[2018-04-23] MEDS ORDERED: ASPIRIN 81 MG TABLET CHEW PO ONE (22:30)
[2018-04-23] MEDS ORDERED: SODIUM CHLORIDE FLUSH 10ML SYR IVF ONE (22:30)
[2018-04-23] MEDS ORDERED: MORPHINE SULFATE 4 MG/ML, 1ML IVPush PRN (22:30)
--- NOTE | 2018-04-23 22:30 | NUR ---
PT PRESENTS TO E/D C/O INTERMITTENT CPxMULTIPLE DAYS AND ASSOCIATED SOB, "DIZZINESS" INTERMITTENT. PT DENIES ANY SYCOPAL EPISODES. NEURO OTHERWISE INTACT. PT STATES HX OF AFIB W/ PACEMAKER IN PLACE. PT STATES NOT CURRENT ON BLOOD THINNER MEDICATIONS AND PRESENTS W/ HR 150-170 RANGE. IV ESTABLISHED AND CARDIZEM PUSH AND DRIP INITIATED. HR 120-150 RANGE AFTER MEDICATION. PT ON 2 L O2 FOR SPO2 OF HIGH 80'S TO LOW 90'S AT THIS TIME, AFTER NARCOTIC ADMINISTRATION. ALL MONITORING IN PLACE. HOB ABORE 30 DEGREES.
[2018-04-23 22:38] LABS: BASOPHILS # (AUTO) 0.13 x10^3/uL (0-0.1); BASOPHILS % (AUTO) 1 % (0-1); EOSINOPHILS # (AUTO) 0.04 x10^3/uL (0-0.4); EOSINOPHILS % (AUTO) 0 % (1-7); LYMPHOCYTES # (AUTO) 3.19 x10^3/uL (1-3.4); LYMPHOCYTES % (AUTO) 21 % (22-44); MD NO; MEAN CORPUSCULAR HEMOGLOBIN 26.6 pg (27.0-34.8); MEAN CORPUSCULAR HGB CONC 32.7 g/dL (32.4-35.8); MEAN CORPUSCULAR VOLUME 81.3 fL (80-100); MEAN PLATELET VOLUME 8.1 fL (7.4-10.4); MONOCYTES # (AUTO) 0.86 x10^3/uL (0.2-0.8); MONOCYTES % (AUTO) 6 % (2-9); NEUTROPHILS # (AUTO) 11.01 x10^3/uL (1.8-6.8); NEUTROPHILS % (AUTO) 72 % (42-75); PLATELET COUNT 270 x10^3/uL (130-400); RED CELL DISTRIBUTION WIDTH 21.5 % (9.6-15.2)
[2018-04-23] MEDS: DILTIAZEM 125 MG in DEXTROSE 5% 100 ML IV SCH (22:42)
[2018-04-23 22:48] LABS: PROTHROMBIN TIME 10.6 Seconds (9.6-11.5)
[2018-04-23 22:54] LABS: ALBUMIN 3.3 g/dL (3.4-5.0); CALCIUM 8.3 mg/dL (8.5-10.1)
--- NOTE | 2018-04-23 22:55 | NUR ---
PT STILL IN 120-150 RANGE. NOTIFIED. AWAITING NEW ORDERS.
[2018-04-23 23:11] LABS: ALANINE AMINOTRANSFERASE 54 U/L (12-78); ALKALINE PHOSPHATASE 77 U/L (45-117); ANION GAP 13 mmol/L (5-15); BILIRUBIN,TOTAL 0.6 mg/dL (0.2-1.0); CHLORIDE 101 mmol/L (98-107); CREATININE 0.65 mg/dL (0.55-1.02); TOTAL PROTEIN 6.5 g/dL (6.4-8.2); TROPONIN I < 0.015 ng/mL (0.000-0.045)
--- NOTE | 2018-04-23 23:14 | NUR ---
PT BP ELEVATED AND HR STILL HIGH. MD AWARE. THIS RN GAVE ANOTHER 20 MG IV PUSH CARDIZEM PER MD ORDER. NO IMMEDIATE RESULTS. IV DRIP REINITIATED.
[2018-04-23 23:20] LABS: T4 (THYROXINE) 12.5 mcg/dL (4.8-13.9)
--- NOTE | 2018-04-23 23:23 | NUR ---
PT FEELING BETTER, PT GIVEN WARM BLANKET. HR 90'S TO 110
[2018-04-23] MEDS ORDERED: DILTIAZEM 5 MG/ML, 5ML IVPush ONE (23:30)
--- NOTE | 2018-04-23 23:42 | NUR ---
THIS RN CALLED FOR COMPATABILITY OF 2 IV INFUSIONS ORDERED. PHARMACY STATES OK TO RUN THROUGH SAME IV.
--- NOTE | 2018-04-23 23:47 | NUR ---
PT REFUSING LASIX. "IS THAT THE SHIT THAT MAKES ME PEE ALL THE TIME?..... I DONT WANT THAT. ITS TORTURE." PT EDUCATED ON NEED. STILL REFUSING. MD AWARE. NO NEW ORDERS.
[2018-04-23] MEDS ORDERED: POTASSIUM CHLORIDE 20 MEQ TAB.ER.PRT ONE (23:49)
[2018-04-24] MEDS ORDERED: FUROSEMIDE 40 MG/4 ML IV ONE
[2018-04-24] MEDS ORDERED: MAGNESIUM SULFATE 1 GM, THIAMINE 100 MG, FOLIC ACID 1 MG, MVI ADULT 10 ML in SODIUM CHL... IV ONE
[2018-04-24] MEDS ORDERED: POTASSIUM CHLORIDE 20 MEQ TAB.ER.PRT PO ONE
--- NOTE | 2018-04-24 00:45 | NUR ---
TASK RN: PT LAYING IN ADITHYA, DANE NOTED. HOSPITALIST AT BEDSIDE FOR EVAL. BP/SPO2/ECG MONITORING IN PLACE. AFIB, HR 125-135 ON MONITOR.
[2018-04-24] MEDS ORDERED: POLYETHYLENE GLYCOL 17 GM PACKET PO PRN (01:00)
[2018-04-24] MEDS ORDERED: BISACODYL 10 MG SUPP PR PRN (01:00)
[2018-04-24] MEDS ORDERED: ENALAPRILAT 1.25 MG/ML, 2ML IVPush PRN (01:00)
[2018-04-24] MEDS ORDERED: LORazepam 2 MG/ML, 1ML IVPush PRN (01:00)
[2018-04-24] MEDS ORDERED: ACETAMINOPHEN 325 MG TABLET PO PRN (01:00)
[2018-04-24] MEDS ORDERED: DOCUSATE 100 MG CAPSULE PO PRN (01:00)
[2018-04-24] MEDS ORDERED: DILTIAZEM 125 MG in SODIUM CHLORIDE 0.9% 100 ML IV SCH (01:00)
[2018-04-24] MEDS ORDERED: ONDANSETRON 2MG/ML, 2ML IVPush PRN (01:00)
--- NOTE | 2018-04-24 02:00 | NUR ---
RX CONTACTED ON POTENTIAL INTERACTION FOR VIBRAMYCIN AND ROCEPHIN. NO INTERACTION NOTED. TO BE Y'D INTO SAME SITE.
[2018-04-24] MEDS ORDERED: ENOXAPARIN 40 MG/0.4 ML ONE (02:16)
[2018-04-24] MEDS ORDERED: CEFTRIAXONE PMX 1GM/50ML 50 ML ONE (02:16)
[2018-04-24] MEDS ORDERED: methylPREDNISolone SOD SUCC 125 MG/2 ML ONE ×2 (02:17→07:23)
[2018-04-24] MEDS: CEFTRIAXONE PMX 1GM/50ML 50 ML IV SCH (02:39)
[2018-04-24] MEDS: ENOXAPARIN 40 MG/0.4 ML SQ SCH (02:39)
[2018-04-24] MEDS: methylPREDNISolone SOD SUCC 125 MG/2 ML IVPush SCH ×3 (02:39→21:26)
[2018-04-24] MEDS: BACLOFEN 10 MG TABLET PO SCH ×3 (02:39→21:28)
--- NOTE | 2018-04-24 02:50 | NUR ---
PT TRANSFERRED TO HOSPITAL BED WITHOUT INCIDENT. LOGHTS TURNED DOWN, PT RESTING QUIETLY
[2018-04-24] MEDS: DOXYCYCLINE 100 MG in DEXTROSE 5% 250 ML IV SCH ×3 (03:30→22:20)
[2018-04-24] MEDS ORDERED: ALBUTEROL/IPRATROPIUM 2.5MG/0.5MG, 3 ML NPPB PRN ×2 (04:00→12:00)
--- NOTE | 2018-04-24 04:05 | NUR ---
PT GIVEN ICE CHIPS PER REQUEST
[2018-04-24] MEDS ORDERED: LORazepam 2 MG/ML, 1ML ONE (04:14)
--- NOTE | 2018-04-24 04:24 | NUR ---
PT HR UP IN 120'S, MEDICATED PER eMAR
[2018-04-24 05:12] LABS: ANION GAP 7 mmol/L (5-15); CHLORIDE 101 mmol/L (98-107)
[2018-04-24 05:22] LABS: BASOPHILS # (AUTO) 0.01 x10^3/uL (0-0.1); BASOPHILS % (AUTO) 0 % (0-1); EOSINOPHILS # (AUTO) 0.01 x10^3/uL (0-0.4); EOSINOPHILS % (AUTO) 0 % (1-7); LYMPHOCYTES # (AUTO) 0.98 x10^3/uL (1-3.4); LYMPHOCYTES % (AUTO) 8 % (22-44); MD NO; MEAN CORPUSCULAR HEMOGLOBIN 26.9 pg (27.0-34.8); MEAN CORPUSCULAR HGB CONC 32.8 g/dL (32.4-35.8); MEAN CORPUSCULAR VOLUME 81.8 fL (80-100); MEAN PLATELET VOLUME 8.4 fL (7.4-10.4); MONOCYTES # (AUTO) 0.23 x10^3/uL (0.2-0.8); MONOCYTES % (AUTO) 2 % (2-9); NEUTROPHILS # (AUTO) 10.41 x10^3/uL (1.8-6.8); NEUTROPHILS % (AUTO) 89 % (42-75); PLATELET COUNT 227 x10^3/uL (130-400); RED CELL DISTRIBUTION WIDTH 21.7 % (9.6-15.2)
--- NOTE | 2018-04-24 05:59 | NUR ---
PT ASSISTED TO BATHROOM AND BACK, WALKED WITH STEADY GAIT BUT GOT WINDED, PLACED BACK ON MONITOR
[2018-04-24] MEDS: ASPIRIN 325 MG TABLET PO SCH (06:00)
[2018-04-24] MEDS ORDERED: ASPIRIN 325 MG TABLET ONE (06:02)
--- NOTE | 2018-04-24 06:02 | NUR ---
PT HR FROM 90-150'S. BP IS 100'S OVER 50'S CONSISTENTLY. HOSPITALIST AWARE. NO NEW ORDERS.
[2018-04-24] MEDS ORDERED: ALBUTEROL/IPRATROPIUM 2.5MG/0.5MG, 3 ML NPPB SCH (07:00)
[2018-04-24] MEDS ORDERED: INSULIN LISPRO 100 UNITS/ML, PEN ONE (07:23)
--- NOTE | 2018-04-24 07:26 | NUR ---
BEDSIDE REPORT FROM RENE RN, PT RESTING IN BED, CARDIZEM GTT AT 5ML/HR, NAD, WCTM
[2018-04-24] MEDS: INSULIN LISPRO 100 UNITS/ML, PEN SQ-INSULIN SCH ×4 (07:40→21:26)
--- NOTE | 2018-04-24 08:30 | NUR ---
PT TO CT SCAN IN NAD
[2018-04-24] MEDS ORDERED: OMNIPAQUE 350 MG/ML, 100ML BOTTLE ONE (08:52)
[2018-04-24] MEDS ORDERED: ACETAMINOPHEN 325 MG TABLET ONE (08:56)
[2018-04-24] MEDS ORDERED: TEMPLATE NON-FORMULARY MED. (Ipratropium/Albuterol Sulfate (Combivent Respimat Inhal Spray INH SCH (09:00)
[2018-04-24] MEDS: TEMPLATE NON-FORMULARY MED. (Budesonide/Formoterol Fumarate (Symbicort 80-4.5 Mcg Inhaler) INH SCH (09:00)
--- NOTE | 2018-04-24 09:25 | NUR ---
MEDS ORDERED FROM PHARMACY
--- NOTE | 2018-04-24 09:41 | NUR ---
REPORT GIVEN TO HERNANDEZ GORMAN, PT RESTING IN BED, NAD ON 2L NC AND CARDIZEM @10ML/H
[2018-04-24] MEDS: INSULIN GLARGINE 100 UNITS/ML, PEN SQ-INSULIN SCH ×2 (12:01→21:26)
[2018-04-24] MEDS: GUAIFENESIN ER 600 MG TABLET PO SCH ×2 (12:02→21:29)
[2018-04-24] MEDS: DILTIAZEM 125 MG in DEXTROSE 5% 100 ML IV SCH (12:02)
[2018-04-24] MEDS: DIGOXIN 0.25 MG TABLET PO SCH (12:02)
[2018-04-24] MEDS: METOPROLOL TARTRATE 50 MG TABLET PO SCH ×2 (12:02→21:28)
[2018-04-24] MEDS: SODIUM CHLORIDE FLUSH 10ML SYR IVF SCH ×2 (12:02→21:33)
[2018-04-24 12:18] VITALS: BP 120/84
[2018-04-24] MEDS: DILTIAZEM 90 MG TABLET PO SCH ×2 (16:00→21:28)
[2018-04-24] MEDS ORDERED: DILTIAZEM 90 MG TABLET PO SCH (16:00)
[2018-04-24 19:44] VITALS: BP 128/79
[2018-04-24] MEDS: KETOROLAC 30 MG/1 ML IV PRN (21:27)
[2018-04-24] MEDS: SIMVASTATIN 40 MG TABLET PO SCH (21:28)
[2018-04-25 01:07] VITALS: BP 117/76
[2018-04-25] MEDS: ENOXAPARIN 40 MG/0.4 ML SQ SCH (01:29)
[2018-04-25] MEDS: CEFTRIAXONE PMX 1GM/50ML 50 ML IV SCH (01:29)
[2018-04-25] MEDS: ASPIRIN 325 MG TABLET PO SCH (05:32)
[2018-04-25] MEDS: BACLOFEN 10 MG TABLET PO SCH ×3 (05:32→21:04)
[2018-04-25] MEDS: DILTIAZEM 90 MG TABLET PO SCH (05:33)
[2018-04-25 08:25] LABS: ANION GAP 6 mmol/L (5-15); CALCIUM 8.5 mg/dL (8.5-10.1); CHLORIDE 99 mmol/L (98-107); CREATININE 0.82 mg/dL (0.55-1.02)
[2018-04-25 08:33] LABS: BASOPHILS % (AUTO) 0 % (0-1); EOSINOPHILS % (AUTO) 0 % (1-7); LYMPHOCYTES # (AUTO) 1.08 x10^3/uL (1-3.4); LYMPHOCYTES % (AUTO) 7 % (22-44); MD NO; MEAN CORPUSCULAR HEMOGLOBIN 26.3 pg (27.0-34.8); MEAN PLATELET VOLUME 8.7 fL (7.4-10.4); MONOCYTES % (AUTO) 2 % (2-9); NEUTROPHILS % (AUTO) 91 % (42-75); PLATELET COUNT 236 x10^3/uL (130-400); RED BLOOD COUNT 4.33 x10^6/uL (3.82-5.3)
[2018-04-25] MEDS ORDERED: FUROSEMIDE 40 MG/4 ML IV SCH ×2 (09:00→17:00)
[2018-04-25] MEDS: TEMPLATE NON-FORMULARY MED. (Budesonide/Formoterol Fumarate (Symbicort 80-4.5 Mcg Inhaler) INH SCH (09:00)
[2018-04-25 09:11] VITALS: BP 132/82
[2018-04-25] MEDS: GUAIFENESIN ER 600 MG TABLET PO SCH ×2 (10:04→21:03)
[2018-04-25] MEDS: DIGOXIN 0.25 MG TABLET PO SCH (10:05)
[2018-04-25] MEDS: methylPREDNISolone SOD SUCC 125 MG/2 ML IVPush SCH (10:05)
[2018-04-25] MEDS: METOPROLOL TARTRATE 50 MG TABLET PO SCH ×2 (10:05→21:04)
[2018-04-25] MEDS: DILTIAZEM CD 180 MG CAP.ER.24H PO SCH (10:05)
[2018-04-25] MEDS: DOXYCYCLINE 100 MG in DEXTROSE 5% 250 ML IV SCH ×2 (10:06→21:42)
[2018-04-25] MEDS: INSULIN GLARGINE 100 UNITS/ML, PEN SQ-INSULIN SCH ×2 (10:06→21:42)
[2018-04-25] MEDS: INSULIN LISPRO 100 UNITS/ML, PEN SQ-INSULIN SCH ×4 (10:06→21:41)
[2018-04-25] MEDS: SODIUM CHLORIDE FLUSH 10ML SYR IVF SCH ×2 (10:06→21:03)
[2018-04-25] MEDS ORDERED: INSULIN LISPRO 100 UNITS/ML, PEN SQ-INSULIN SCH ×3 (11:00→17:02)
[2018-04-25 14:16] VITALS: BP 93/57
[2018-04-25 19:38] VITALS: BP 128/63
[2018-04-25] MEDS: KETOROLAC 30 MG/1 ML IV PRN (20:48)
[2018-04-25] MEDS: SIMVASTATIN 40 MG TABLET PO SCH (21:04)
[2018-04-26 00:35] VITALS: BP 113/69
[2018-04-26] MEDS: CEFTRIAXONE PMX 1GM/50ML 50 ML IV SCH (00:35)
[2018-04-26] MEDS: ENOXAPARIN 40 MG/0.4 ML SQ SCH (00:35)
[2018-04-26] MEDS: ASPIRIN 325 MG TABLET PO SCH (05:10)
[2018-04-26] MEDS: BACLOFEN 10 MG TABLET PO SCH ×3 (05:11→22:42)
[2018-04-26 05:18] LABS: MEAN CORPUSCULAR HEMOGLOBIN 26.5 pg (27.0-34.8); MEAN CORPUSCULAR VOLUME 82.7 fL (80-100); MEAN PLATELET VOLUME 8.7 fL (7.4-10.4); PLATELET COUNT 224 x10^3/uL (130-400); RED BLOOD COUNT 4.02 x10^6/uL (3.82-5.3); RED CELL DISTRIBUTION WIDTH 21.6 % (9.6-15.2)
[2018-04-26 05:19] LABS: ANION GAP 7 mmol/L (5-15); CALCIUM 8.4 mg/dL (8.5-10.1); CHLORIDE 98 mmol/L (98-107)
[2018-04-26 05:20] LABS: CREATININE 0.86 mg/dL (0.55-1.02)
[2018-04-26 06:01] LABS: BASOPHILS % (AUTO) 0 % (0-1); EOSINOPHILS % (AUTO) 0 % (1-7); LYMPHOCYTES # (AUTO) 0.89 x10^3/uL (1-3.4); LYMPHOCYTES % (AUTO) 6 % (22-44); MD SCAN; MONOCYTES % (AUTO) 3 % (2-9); NEUTROPHILS # (AUTO) 13.88 x10^3/uL (1.8-6.8); NEUTROPHILS % (AUTO) 91 % (42-75)
[2018-04-26 07:14] VITALS: BP 137/81
[2018-04-26] MEDS ORDERED: predniSONE 50MG TABLET PO SCH (08:00)
[2018-04-26] MEDS ORDERED: FUROSEMIDE 100 MG/10 ML ONE (08:13)
[2018-04-26] MEDS: INSULIN LISPRO 100 UNITS/ML, PEN SQ-INSULIN SCH ×5 (08:17→22:42)
[2018-04-26] MEDS: INSULIN GLARGINE 100 UNITS/ML, PEN SQ-INSULIN SCH ×2 (08:18→22:42)
[2018-04-26] MEDS: GUAIFENESIN ER 600 MG TABLET PO SCH ×2 (08:20→22:42)
[2018-04-26] MEDS: DILTIAZEM CD 180 MG CAP.ER.24H PO SCH (08:20)
[2018-04-26] MEDS: METOPROLOL TARTRATE 50 MG TABLET PO SCH ×2 (08:20→22:42)
[2018-04-26] MEDS: DIGOXIN 0.25 MG TABLET PO SCH (08:21)
[2018-04-26] MEDS: FUROSEMIDE 20 MG/2 ML IV SCH (08:23)
[2018-04-26] MEDS: SODIUM CHLORIDE FLUSH 10ML SYR IVF SCH ×2 (08:26→22:41)
[2018-04-26] MEDS: TEMPLATE NON-FORMULARY MED. (Budesonide/Formoterol Fumarate (Symbicort 80-4.5 Mcg Inhaler) INH SCH (09:00)
[2018-04-26] MEDS: DOXYCYCLINE 100 MG in DEXTROSE 5% 250 ML IV SCH ×2 (10:26→22:43)
[2018-04-26] MEDS ORDERED: INSULIN LISPRO 100 UNITS/ML, PEN SQ-INSULIN SCH ×2 (11:00→12:00)
[2018-04-26 12:19] VITALS: BP 98/55
[2018-04-26 20:05] VITALS: BP 122/75
[2018-04-26] MEDS: SIMVASTATIN 40 MG TABLET PO SCH (22:42)
[2018-04-26] MEDS: KETOROLAC 30 MG/1 ML IV PRN (22:43)
[2018-04-27] MEDS: ENOXAPARIN 40 MG/0.4 ML SQ SCH (01:12)
[2018-04-27] MEDS: CEFTRIAXONE PMX 1GM/50ML 50 ML IV SCH (01:15)
[2018-04-27 01:59] VITALS: BP 136/78
[2018-04-27 03:04] LABS: MICROSCOPIC NOT IND
[2018-04-27 03:07] LABS: CULTURE INDICATED? NO
[2018-04-27 05:37] LABS: ANION GAP 5 mmol/L (5-15); CALCIUM 8.3 mg/dL (8.5-10.1); CHLORIDE 102 mmol/L (98-107); CREATININE 0.63 mg/dL (0.55-1.02)
[2018-04-27 05:55] LABS: BASOPHILS # (AUTO) 0.05 x10^3/uL (0-0.1); BASOPHILS % (AUTO) 1 % (0-1); EOSINOPHILS # (AUTO) 0.02 x10^3/uL (0-0.4); EOSINOPHILS % (AUTO) 0 % (1-7); LYMPHOCYTES # (AUTO) 1.91 x10^3/uL (1-3.4); LYMPHOCYTES % (AUTO) 19 % (22-44); MD NO; MEAN CORPUSCULAR HEMOGLOBIN 27.3 pg (27.0-34.8); MEAN CORPUSCULAR HGB CONC 32.8 g/dL (32.4-35.8); MEAN CORPUSCULAR VOLUME 83.1 fL (80-100); MEAN PLATELET VOLUME 8.3 fL (7.4-10.4); MONOCYTES # (AUTO) 0.49 x10^3/uL (0.2-0.8); MONOCYTES % (AUTO) 5 % (2-9); NEUTROPHILS % (AUTO) 75 % (42-75); PLATELET COUNT 197 x10^3/uL (130-400); RED BLOOD COUNT 4.07 x10^6/uL (3.82-5.3); RED CELL DISTRIBUTION WIDTH 21.7 % (9.6-15.2)
[2018-04-27] MEDS: ASPIRIN 325 MG TABLET PO SCH (06:30)
[2018-04-27] MEDS: BACLOFEN 10 MG TABLET PO SCH ×3 (06:30→20:26)
[2018-04-27] MEDS: TEMPLATE NON-FORMULARY MED. (Budesonide/Formoterol Fumarate (Symbicort 80-4.5 Mcg Inhaler) INH SCH (07:28)
[2018-04-27 07:46] VITALS: BP 145/90
[2018-04-27] MEDS: INSULIN LISPRO 100 UNITS/ML, PEN SQ-INSULIN SCH ×7 (07:52→20:28)
[2018-04-27] MEDS: FUROSEMIDE 20 MG/2 ML IV SCH (07:53)
[2018-04-27] MEDS ORDERED: POTASSIUM CHLORIDE 20 MEQ TAB.ER.PRT PO ONE (09:00)
[2018-04-27] MEDS: SODIUM CHLORIDE FLUSH 10ML SYR IVF SCH ×2 (09:00→20:27)
[2018-04-27] MEDS: GUAIFENESIN ER 600 MG TABLET PO SCH ×2 (09:15→20:26)
[2018-04-27] MEDS: INSULIN GLARGINE 100 UNITS/ML, PEN SQ-INSULIN SCH ×2 (09:16→20:27)
[2018-04-27] MEDS: METOPROLOL TARTRATE 50 MG TABLET PO SCH ×2 (09:16→20:26)
[2018-04-27] MEDS: DILTIAZEM CD 180 MG CAP.ER.24H PO SCH (09:16)
[2018-04-27] MEDS: DIGOXIN 0.25 MG TABLET PO SCH (09:16)
[2018-04-27] MEDS: DOXYCYCLINE 100 MG in DEXTROSE 5% 250 ML IV SCH ×2 (11:25→23:23)
[2018-04-27 13:00] VITALS: BP 127/82
[2018-04-27] MEDS: FUROSEMIDE 100 MG/10 ML IV SCH (17:27)
[2018-04-27 19:46] VITALS: BP 133/86
[2018-04-27] MEDS: SIMVASTATIN 40 MG TABLET PO SCH (20:26)
[2018-04-28] MEDS: CEFTRIAXONE PMX 1GM/50ML 50 ML IV SCH (01:37)
[2018-04-28] MEDS: ENOXAPARIN 40 MG/0.4 ML SQ SCH (01:37)
[2018-04-28 01:40] VITALS: BP 127/70
[2018-04-28] MEDS: BACLOFEN 10 MG TABLET PO SCH (05:13)
[2018-04-28] MEDS: ASPIRIN 325 MG TABLET PO SCH (05:13)
[2018-04-28 05:33] LABS: BASOPHILS # (AUTO) 0.02 x10^3/uL (0-0.1); BASOPHILS % (AUTO) 0 % (0-1); EOSINOPHILS # (AUTO) 0.05 x10^3/uL (0-0.4); EOSINOPHILS % (AUTO) 1 % (1-7); LYMPHOCYTES # (AUTO) 2.07 x10^3/uL (1-3.4); LYMPHOCYTES % (AUTO) 21 % (22-44); MD NO; MEAN CORPUSCULAR HEMOGLOBIN 27.2 pg (27.0-34.8); MEAN CORPUSCULAR HGB CONC 32.8 g/dL (32.4-35.8); MEAN CORPUSCULAR VOLUME 82.8 fL (80-100); MEAN PLATELET VOLUME 8.6 fL (7.4-10.4); MONOCYTES # (AUTO) 0.52 x10^3/uL (0.2-0.8); MONOCYTES % (AUTO) 5 % (2-9); NEUTROPHILS # (AUTO) 7.08 x10^3/uL (1.8-6.8); NEUTROPHILS % (AUTO) 73 % (42-75); PLATELET COUNT 220 x10^3/uL (130-400); RED BLOOD COUNT 4.65 x10^6/uL (3.82-5.3); RED CELL DISTRIBUTION WIDTH 21.9 % (9.6-15.2)
[2018-04-28 06:04] LABS: CHLORIDE 99 mmol/L (98-107)
[2018-04-28 06:13] LABS: ANION GAP 6 mmol/L (5-15); CALCIUM 8.8 mg/dL (8.5-10.1)
[2018-04-28] MEDS: INSULIN LISPRO 100 UNITS/ML, PEN SQ-INSULIN SCH ×4 (07:00→10:27)
[2018-04-28] MEDS ORDERED: POTASSIUM CHLORIDE 20 MEQ TAB.ER.PRT PO ONE (07:00)
[2018-04-28] MEDS: TEMPLATE NON-FORMULARY MED. (Budesonide/Formoterol Fumarate (Symbicort 80-4.5 Mcg Inhaler) INH SCH (07:44)
[2018-04-28] MEDS: INSULIN GLARGINE 100 UNITS/ML, PEN SQ-INSULIN SCH (08:03)
[2018-04-28] MEDS: FUROSEMIDE 100 MG/10 ML IV SCH (08:03)
[2018-04-28] MEDS: METOPROLOL TARTRATE 50 MG TABLET PO SCH (08:04)
[2018-04-28] MEDS: SODIUM CHLORIDE FLUSH 10ML SYR IVF SCH (08:04)
[2018-04-28] MEDS: GUAIFENESIN ER 600 MG TABLET PO SCH (08:04)
[2018-04-28] MEDS: DILTIAZEM CD 180 MG CAP.ER.24H PO SCH (08:04)
[2018-04-28] MEDS: DIGOXIN 0.25 MG TABLET PO SCH (08:04)
[2018-04-28 08:09] VITALS: BP 164/90
[2018-04-28] MEDS ORDERED: POLYETHYLENE GLYCOL 17 GM PACKET PO SCH (09:05)
[2018-04-28] MEDS: DOXYCYCLINE 100 MG in DEXTROSE 5% 250 ML IV SCH (10:29)
[2018-04-28] MEDS ORDERED: INSULIN LISPRO 100 UNITS/ML, PEN SQ-INSULIN SCH (12:00)
[2018-04-28 13:21] VITALS: BP 121/77
[2018-04-28] MEDS ORDERED: POTA20TA14 PO (15:07)
[2018-04-28] MEDS ORDERED: FURO-92 PO (15:07)
[2018-04-28] MEDS ORDERED: INSU100I11 SQ-INSULIN (15:07)
[2018-04-28] MEDS ORDERED: INSULIN GLARGINE 100 UNITS/ML, PEN SQ-INSULIN SCH (21:00)
== END 2018-04-28 17:07 | disposition home or self-care (01) | DRG 871 ==
LOC: ED 23:34 → EDIP 23:38 → ED 23:39 → 5SO 04-24 10:10 → 4WST 04-27 13:32
PROVIDERS: ADMIT Internal Medicine; ATTEND Internal Medicine
DX: A41.9 Sepsis, unspecified organism (principal); J96.01 Acute respiratory failure with hypoxia; D68.69 Other thrombophilia; E44.1 Mild protein-calorie malnutrition; F10.239 Alcohol dependence with withdrawal, unspecified; J44.0 Chronic obstructive pulmonary disease with (acute) lower respiratory infection; J44.1 Chronic obstructive pulmonary disease with (acute) exacerbation; J98.11 Atelectasis; E11.65 Type 2 diabetes mellitus with hyperglycemia; E78.5 Hyperlipidemia, unspecified; E87.6 Hypokalemia; F17.200 Nicotine dependence, unspecified, uncomplicated; I11.0 Hypertensive heart disease with heart failure; I27.20 Pulmonary hypertension, unspecified; I48.0 Paroxysmal atrial fibrillation; J20.9 Acute bronchitis, unspecified; Z68.38 Body mass index [BMI] 38.0-38.9, adult; K21.9 Gastro-esophageal reflux disease without esophagitis; Z79.4 Long term (current) use of insulin; Z82.49 Family history of ischemic heart disease and other diseases of the circulatory system; Z83.3 Family history of diabetes mellitus; Z86.14 Personal history of Methicillin resistant Staphylococcus aureus infection; Z90.710 Acquired absence of both cervix and uterus; Z91.14 Patient's other noncompliance with medication regimen; Z95.0 Presence of cardiac pacemaker; Z89.021 Acquired absence of right finger(s); Z71.6 Tobacco abuse counseling
CPT/HCPCS: 36415; 71045; 74177; 80048; 80053; 80307; 81003; 82947; 82962; 83735; 83880; 84145; 84436; 84443; 84484; 85025; 85610; 85730; 87040; 93005; 96365; 96375; 96376; 99291; G0378; J0696; J1650; J1885; J1940; J2405; J3411; J3475; J7060; Q9967; J1815; J2060; J2930; J7030; J7512

== ENCOUNTER 2018-05-04 11:34 | Emergency (ER) | payer MEDICAID ==
[~2018-05-04] VITALS: Ht 170.2 cm; Wt 110.0 kg
[~2018-05-04 11:34] MED LIST changes: +FURO-92 PO; +POTA20TA14 PO
--- NOTE | 2018-05-04 11:45 | NUR ---
PT HYPERVENTALATING WITH PAIN "SCIATICA AND KNEE PAIN" PT ALSO SOB AND STATES SHE IS COUGHING UP GREEN STUFF. USES OXYGEN BUT HAS NOT HAD ANY BECAUSE SHE IS HOMELESS. ON MONITOR AND OXYGEN 3L
[2018-05-04] MEDS ORDERED: ONDANSETRON ODT 4 MG ONE (12:25)
[2018-05-04] MEDS ORDERED: MORPHINE SULFATE 4 MG/ML, 1ML ONE (12:26)
[2018-05-04 12:29] LABS: BASOPHILS # (AUTO) 0.05 x10^3/uL (0-0.1); BASOPHILS % (AUTO) 1 % (0-1); EOSINOPHILS # (AUTO) 0.09 x10^3/uL (0-0.4); EOSINOPHILS % (AUTO) 1 % (1-7); LYMPHOCYTES # (AUTO) 1.62 x10^3/uL (1-3.4); LYMPHOCYTES % (AUTO) 18 % (22-44); MD NO; MEAN CORPUSCULAR HEMOGLOBIN 26.8 pg (27.0-34.8); MEAN CORPUSCULAR HGB CONC 32.5 g/dL (32.4-35.8); MEAN CORPUSCULAR VOLUME 82.6 fL (80-100); MEAN PLATELET VOLUME 8.2 fL (7.4-10.4); MONOCYTES # (AUTO) 0.53 x10^3/uL (0.2-0.8); MONOCYTES % (AUTO) 6 % (2-9); NEUTROPHILS # (AUTO) 6.75 x10^3/uL (1.8-6.8); NEUTROPHILS % (AUTO) 75 % (42-75); PLATELET COUNT 201 x10^3/uL (130-400); RED BLOOD COUNT 4.27 x10^6/uL (3.82-5.3); RED CELL DISTRIBUTION WIDTH 21.8 % (9.6-15.2)
[2018-05-04] MEDS ORDERED: MORPHINE SULFATE 4 MG/ML, 1ML IVPush PRN (12:30)
[2018-05-04] MEDS ORDERED: ONDANSETRON ODT 4 MG PO ONE (12:30)
[2018-05-04] MEDS ORDERED: DIAZEPAM 5 MG/ML, 2ML IVPush ONE (12:30)
[2018-05-04] MEDS ORDERED: SODIUM CHLORIDE FLUSH 10ML SYR IVF ONE (12:30)
[2018-05-04 12:42] LABS: ALANINE AMINOTRANSFERASE 46 U/L (12-78); ALBUMIN 3.2 g/dL (3.4-5.0); ANION GAP 8 mmol/L (5-15); CALCIUM 8.3 mg/dL (8.5-10.1); CHLORIDE 102 mmol/L (98-107); CREATININE 0.66 mg/dL (0.55-1.02)
[2018-05-04 12:46] LABS: ALKALINE PHOSPHATASE 74 U/L (45-117); BILIRUBIN,TOTAL 0.8 mg/dL (0.2-1.0); TOTAL PROTEIN 6.1 g/dL (6.4-8.2)
--- NOTE | 2018-05-04 13:25 | NUR ---
REPORT FROM ROGER GORMAN
--- NOTE | 2018-05-04 14:24 | NUR ---
MINICATH PREFORMED. PATIENT HAS AREAS ON BILATERAL THIGHS OF BLANCABLE REDNESS AND EXCORIATION. BARRIER CREAM APPLIED
--- NOTE | 2018-05-04 14:34 | NUR ---
PATIETN REPOSITIONED. NOT TOLERATING POSITON CHANGE WELL. UNSURE IF UNABLE OR UNWILLING TO SIT FORWARD. PATIENT NOW SITTING UP, ON OXYGEN. PATIENT CONTINUES TO REQUIRE OXYGEN. MD DWYER HAD BEEN AT FOR UPDATE ON PLAN OF CARE
[2018-05-04 14:37] LABS: MICROSCOPIC NOT IND
[2018-05-04 14:45] LABS: CULTURE INDICATED? NO
--- NOTE | 2018-05-04 15:13 | NUR ---
PATIENT GIVEN MEAL TRAY, SITTING UP AND EATING
[2018-05-04 16:38] VITALS: BP 140/87
== END 2018-05-04 16:41 | disposition home or self-care (01) ==
LOC: ED 15:49
DX: M54.41 Lumbago with sciatica, right side (principal); J44.9 Chronic obstructive pulmonary disease, unspecified; J42 Unspecified chronic bronchitis; F17.200 Nicotine dependence, unspecified, uncomplicated; I48.91 Unspecified atrial fibrillation; I50.9 Heart failure, unspecified; K21.9 Gastro-esophageal reflux disease without esophagitis; E11.9 Type 2 diabetes mellitus without complications; I11.0 Hypertensive heart disease with heart failure
CPT/HCPCS: 36415; 71045; 72148; 80053; 81003; 83880; 85025; 93005; 96374; 96375; 99284; J3360; Q0162

== ENCOUNTER 2018-05-05 07:25 | Emergency (ER) | payer MEDICAID ==
[~2018-05-05] VITALS: Ht 170.2 cm; Wt 110.0 kg
--- NOTE | 2018-05-05 07:35 | NUR ---
57 Y/O FEMALE BIB AMBULANCE WITH C/O BACK PAIN. PER PATIENT "I WAS HERE YESTERDAY AND I HAVE BACK PAIN STILL. I COULDN'T GET UP OFF THE FLOOR AT MY FRIENDS HOUSE. I NEVER FILLED MY PRESCRIPTIONS FROM YESTERDAY." PER REPORT PT IS NON COMPLIANT WITH HOME OXYGEN. PIV ESTABLISHED STONE AND CONCRETE WASHER. PT PLACED ON CONT PULSE OX,NIBP. NO C/O N/V/D, TRAUMA,
[2018-05-05] MEDS ORDERED: OXYcodone/APAP 5/325MG TABLET PO ONE (08:00)
--- NOTE | 2018-05-05 08:23 | NUR ---
PT RESTING ON G[place]LEV[place]. NO ACUTE DISTRESS NOTED.
[2018-05-05 08:40] LABS: ALANINE AMINOTRANSFERASE 52 U/L (12-78); ALBUMIN 3.3 g/dL (3.4-5.0); ANION GAP 7 mmol/L (5-15); BASOPHILS # (AUTO) 0.06 x10^3/uL (0-0.1); BASOPHILS % (AUTO) 1 % (0-1); CALCIUM 8.2 mg/dL (8.5-10.1); CHLORIDE 99 mmol/L (98-107); EOSINOPHILS # (AUTO) 0.01 x10^3/uL (0-0.4); EOSINOPHILS % (AUTO) 0 % (1-7); LYMPHOCYTES # (AUTO) 1.41 x10^3/uL (1-3.4); LYMPHOCYTES % (AUTO) 15 % (22-44); MD NO; MEAN CORPUSCULAR HEMOGLOBIN 26.9 pg (27.0-34.8); MEAN CORPUSCULAR HGB CONC 32.5 g/dL (32.4-35.8); MEAN CORPUSCULAR VOLUME 82.7 fL (80-100); MEAN PLATELET VOLUME 7.9 fL (7.4-10.4); MONOCYTES # (AUTO) 0.61 x10^3/uL (0.2-0.8); MONOCYTES % (AUTO) 7 % (2-9); NEUTROPHILS # (AUTO) 7.12 x10^3/uL (1.8-6.8); NEUTROPHILS % (AUTO) 77 % (42-75); PLATELET COUNT 232 x10^3/uL (130-400); RED BLOOD COUNT 4.13 x10^6/uL (3.82-5.3); RED CELL DISTRIBUTION WIDTH 22.2 % (9.6-15.2)
[2018-05-05 08:43] LABS: ALKALINE PHOSPHATASE 80 U/L (45-117); BILIRUBIN,TOTAL 0.5 mg/dL (0.2-1.0); CREATININE 0.82 mg/dL (0.55-1.02); TOTAL PROTEIN 6.5 g/dL (6.4-8.2)
[2018-05-05] MEDS ORDERED: OXYcodone/APAP 5/325MG TABLET ONE (09:04)
--- NOTE | 2018-05-05 09:11 | NUR ---
PT RESTING ON GURNEY. NO ACUTE DISTRESS NOTED. VSS. MEDICATION ADMINISTERED PER EMAR. WILL CONTINUE TO MONITOR.
--- NOTE | 2018-05-05 10:24 | NUR ---
PT RESTING ON GURNEY. PT STATES "I FEEL BETTER AFTER THE MEDICATION." PT NOT FIDIGETY OR IN ANY ACUTE DISTRESS. NO NEEDS REQUESTED AT THIS TIME.
[2018-05-05 10:25] VITALS: BP 163/84
--- NOTE | 2018-05-05 11:03 | NUR ---
Jamila RN: Patient/Caregiver given discharge instructions and they have confirmed that they understand the instructions. Patient ambulatory with steady gait. Addendum: 05/05/18 at 1106 by EMANUELILLISCH NOTE WRITTEN BY KATHRYN FARNSWORTH RN. PATIENT REFUSES TAXI VOUCHER, STATES SHE LIVES ON THE [address] AND IS JUST GOING TO WHEEL HERSELF AWAY. PATIENT PROVIDED DC INFORMATION AND PLACED IN BAG, ABLE TO TRANSFER HERSELF FROM GURNEY TO WHEELCHAIR WITHOUT DIFFICULTY.
== END 2018-05-05 11:13 | disposition home or self-care (01) ==
LOC: ED 08:53
DX: G89.29 Other chronic pain (principal); M54.5 Low back pain; I50.9 Heart failure, unspecified; I11.0 Hypertensive heart disease with heart failure; E11.65 Type 2 diabetes mellitus with hyperglycemia; I48.91 Unspecified atrial fibrillation; K21.9 Gastro-esophageal reflux disease without esophagitis; J44.9 Chronic obstructive pulmonary disease, unspecified; F17.200 Nicotine dependence, unspecified, uncomplicated
CPT/HCPCS: 36415; 80053; 85025; 99283

== ENCOUNTER 2018-05-08 02:18 | Inpatient (IN) | payer MEDICAID ==
[~2018-05-08] VITALS: Ht 170.2 cm; Wt 109.3 kg
[2018-05-08] MEDS ORDERED: DILTIAZEM 5 MG/ML, 10ML ONE (02:42)
--- NOTE | 2018-05-08 02:47 | NUR ---
PT MEDICATED PER eMAR, 5 RIGHTS ADDRESSED
[2018-05-08] MEDS ORDERED: ALBUTEROL SULFATE 2.5 MG/3 ML ONE (02:54)
--- NOTE | 2018-05-08 02:59 | NUR ---
JPT BROUGHT IN BY [facility] FOR SOB FOR 3 DAYS, WORSE TONIGHT. PT HAD ONE ALBUTEROL TX AND 2 DUONEB TREATMENTS. PT IS RESTLESS AND THRASHING AROUND, UNCOOPERATIVE AT TIMES WITH REQUESTS, STATES SHE GOING TO . EKG DONE, AT , PT ON ASSISTANT IN NURSING AND 02, REASSURED, CALL LIGHT IN REACH
[2018-05-08] MEDS ORDERED: ALBUTEROL SULFATE 2.5 MG/3 ML NPPB ONE (03:00)
[2018-05-08] MEDS ORDERED: DILTIAZEM 5 MG/ML, 5ML IVPush ONE ×2 (03:00)
[2018-05-08 03:16] LABS: MEAN CORPUSCULAR HGB CONC 33.2 g/dL (32.4-35.8); MEAN CORPUSCULAR VOLUME 84.1 fL (80-100); MEAN PLATELET VOLUME 7.7 fL (7.4-10.4); PLATELET COUNT 223 x10^3/uL (130-400); RED BLOOD COUNT 3.91 x10^6/uL (3.82-5.3)
[2018-05-08 03:17] LABS: ALBUMIN 3.3 g/dL (3.4-5.0); ANION GAP 11 mmol/L (5-15); CALCIUM 8.2 mg/dL (8.5-10.1); CHLORIDE 96 mmol/L (98-107)
[2018-05-08 03:22] LABS: ALANINE AMINOTRANSFERASE 42 U/L (12-78); ALKALINE PHOSPHATASE 89 U/L (45-117); BILIRUBIN,TOTAL 0.8 mg/dL (0.2-1.0); CREATININE 0.75 mg/dL (0.55-1.02); TOTAL PROTEIN 6.2 g/dL (6.4-8.2)
[2018-05-08 03:27] LABS: TROPONIN I 0.186 ng/mL (0.000-0.045)
[2018-05-08 03:31] LABS: BASOPHILS # (AUTO) 0.02 x10^3/uL (0-0.1); BASOPHILS % (AUTO) 0 % (0-1); EOSINOPHILS # (AUTO) 0.13 x10^3/uL (0-0.4); EOSINOPHILS % (AUTO) 2 % (1-7); LYMPHOCYTES # (AUTO) 1.36 x10^3/uL (1-3.4); LYMPHOCYTES % (AUTO) 20 % (22-44); MD SCAN; MONOCYTES # (AUTO) 0.53 x10^3/uL (0.2-0.8); MONOCYTES % (AUTO) 8 % (2-9); NEUTROPHILS # (AUTO) 4.72 x10^3/uL (1.8-6.8); NEUTROPHILS % (AUTO) 70 % (42-75)
--- NOTE | 2018-05-08 03:55 | NUR ---
PT THRASHING ON STRETCHER, REASSURED
[2018-05-08] MEDS ORDERED: ASPIRIN 81 MG TABLET CHEW PO ONE (04:00)
--- NOTE | 2018-05-08 04:04 | NUR ---
UNABLE TO VERIFY PT MEDS, HOSPITALIST AWARE
[2018-05-08] MEDS ORDERED: ASPIRIN 81 MG TABLET CHEW ONE (04:06)
[2018-05-08] MEDS ORDERED: GUAIFENESIN/COD200MG-20MG/10ML LIQUID PO PRN (04:30)
[2018-05-08] MEDS ORDERED: DILTIAZEM 5 MG/ML, 5ML IVPush PRN (04:30)
[2018-05-08] MEDS ORDERED: LABETALOL 5MG/ML, 20ML IVPush PRN (04:30)
[2018-05-08] MEDS ORDERED: DILTIAZEM 60 MG TABLET PO SCH (04:30)
[2018-05-08] MEDS ORDERED: ALBUTEROL/IPRATROPIUM 2.5MG/0.5MG, 3 ML NPPB PRN (04:30)
[2018-05-08] MEDS ORDERED: DILTIAZEM 60 MG TABLET ONE (04:41)
[2018-05-08] MEDS ORDERED: methylPREDNISolone SOD SUCC 40 MG/ML ONE (04:41)
[2018-05-08] MEDS: methylPREDNISolone SOD SUCC 40 MG/ML IVPush SCH ×4 (04:49→22:56)
[2018-05-08] MEDS ORDERED: POTASSIUM CHLORIDE 20 MEQ TAB.ER.PRT PO ONE (05:00)
--- NOTE | 2018-05-08 05:18 | NUR ---
PT RESTING WITH EYES CLOSED, STILL FIDGITY BUT NO DISTRESS NOTED
--- NOTE | 2018-05-08 05:56 | NUR ---
ASSISTED PT. TO STAND ON SCALE FOR ACCURATE WEIGHT BEFORE HEPARIN. PHARMACY AWARE AND TO DOSE ACCORDINGLY; AWAITING CALL BACK FROM PHARMACY.
[2018-05-08] MEDS ORDERED: HEPARIN 5,000 UNITS/ML, 1ML ONE (05:59)
[2018-05-08] MEDS ORDERED: HEPARIN 5,000 UNITS/ML, 1ML IV ONE (06:00)
[2018-05-08] MEDS ORDERED: HEPARIN 5,000 UNITS/ML, 1ML IV PRN (06:00)
[2018-05-08] MEDS ORDERED: HEPARIN 25,000 UNITS/500ML PMX 500 ML ONE (06:00)
[2018-05-08] MEDS ORDERED: HEPARIN 25,000 UNITS/500ML PMX 500 ML IV PRN ×3 (06:00→15:30)
--- NOTE | 2018-05-08 06:08 | NUR ---
SPOKE WITH SHANTELL CASTRO D TO CONFIRM BOLUS AND DOSE RATE FOR HEPARIN DRIP. 4,000 UNIT BOLUS AND 900UNITS/HR CONFIRMED.
[2018-05-08] MEDS ORDERED: POTASSIUM CHLORIDE 20 MEQ TAB.ER.PRT ONE (06:09)
--- NOTE | 2018-05-08 06:49 | NUR ---
PT. ASSISTED TO BED STANLEY AND OFF. FSBS CHECKED AND PT. EATING OWN FOOD SHE BROUGHT TO ED WITH HER; DIET TRAY ORDERED. PT. CONTINUES TO THRASH AROUND ON ADITHYA CURSING "THAT FUCKING BITCH, IF IT WEREN'T FOR HIM I WOULDN'T HAVE EVEN HAD THIS HEART ATTACK". PT. NOT PLEASANT WITH STAFF AND CONTINUALLY SHOUTING FOUL LANGUAGE. PT. OFFERED REASSURANCE. CALL LIGHT IN REACH, ALL SAFETY MEASURES OBSERVED.
[2018-05-08] MEDS ORDERED: INSULIN LISPRO 100 UNITS/ML, PEN ONE (06:54)
[2018-05-08] MEDS: INSULIN LISPRO 100 UNITS/ML, PEN SQ-INSULIN SCH ×4 (07:00→22:57)
--- NOTE | 2018-05-08 07:00 | NUR ---
REPORT FROM RENE GORMAN.
--- NOTE | 2018-05-08 08:10 | NUR ---
PT GIVEN BREAKFAST TO EAT. PT STATED THAT SHE IS NOT HUNGRY RIGHT NOW.
[2018-05-08] MEDS ORDERED: ALBUTEROL/IPRATROPIUM 2.5MG/0.5MG, 3 ML ONE (08:22)
[2018-05-08] MEDS: ALBUTEROL/IPRATROPIUM 2.5MG/0.5MG, 3 ML HHN SCH ×4 (08:30→22:30)
--- NOTE | 2018-05-08 08:32 | NUR ---
RT AT BEDSIDE.
--- NOTE | 2018-05-08 08:48 | NUR ---
LAB AT BEDSIDE.
[2018-05-08] MEDS ORDERED: TEMPLATE NON-FORMULARY MED. (Ipratropium/Albuterol Sulfate (Combivent Respimat Inhal Spray INH SCH (09:00)
[2018-05-08] MEDS ORDERED: BUDESONIDE 0.5 MG/2 ML INHA NPPB SCH (09:00)
[2018-05-08] MEDS: ASPIRIN 325 MG TABLET PO SCH (09:00)
[2018-05-08] MEDS ORDERED: TEMPLATE NON-FORMULARY MED. (Budesonide/Formoterol Fumarate (Symbicort 80-4.5 Mcg Inhaler) INH SCH (09:00)
[2018-05-08] MEDS: OMEPRAZOLE 20 MG CAPSULE.DR PO SCH (09:00)
[2018-05-08] MEDS: METOPROLOL TARTRATE 50 MG TABLET PO SCH ×2 (09:00→22:56)
[2018-05-08] MEDS: DOXYCYCLINE 100MG CAP PO SCH ×2 (09:00→22:56)
[2018-05-08] MEDS: DIGOXIN 0.25 MG TABLET PO SCH (09:00)
[2018-05-08] MEDS ORDERED: ALBUTEROL/IPRATROPIUM 2.5MG/0.5MG, 3 ML NPPB SCH (09:00)
[2018-05-08] MEDS ORDERED: DILTIAZEM HCL 360 MG PO SCH (09:00)
[2018-05-08] MEDS: FUROSEMIDE 40 MG/4 ML IV SCH ×2 (09:00→22:56)
[2018-05-08 09:16] LABS: TROPONIN I 0.156 ng/mL (0.000-0.045)
--- NOTE | 2018-05-08 09:17 | NUR ---
PT PLACED IN HOSPITAL BED. PT KEEPS TAKING OFF MONITORING EQUIPMENT AND IS REFUSING BP. EXPLAINED THAT WE NEED BP BEFORE MEDICATIONS. PT STATED "I DONT CARE ABOUT MEDICATIONS", "JUST LEAVE ME ALONE".
--- NOTE | 2018-05-08 09:23 | NUR ---
MEDICAL OFFICE PROFESSIONAL INSTRUCTOR: MD TY CALLED REGARDING TROP, NO NEW ORDERS AT THIS TIME TROP IS DECREASING
[2018-05-08] MEDS ORDERED: BUDESONIDE 0.5 MG/2 ML INHA ONE (09:31)
--- NOTE | 2018-05-08 09:57 | NUR ---
REPORT GIVEN TO VINITA GORMAN.
[2018-05-08 10:40] VITALS: BP 118/79
[2018-05-08 15:48] LABS: TROPONIN I 0.112 ng/mL (0.000-0.045)
[2018-05-08] MEDS: POTASSIUM CHLORIDE 20 MEQ TAB.ER.PRT PO SCH (17:26)
[2018-05-08 19:53] VITALS: BP 124/88
[2018-05-08] MEDS: BUDESONIDE 0.5 MG/2 ML INHA INH SCH (20:29)
[2018-05-08] MEDS: HEPARIN 5,000 UNITS/ML, 1ML IV PRN (20:33)
[2018-05-08] MEDS ORDERED: SIMVASTATIN 40 MG TABLET PO SCH (21:00)
[2018-05-08] MEDS: ATORVASTATIN 80 MG TABLET PO SCH (22:56)
[2018-05-08] MEDS: BENZONATATE 100 MG CAPSULE PO PRN (22:56)
[2018-05-08] MEDS: INSULIN GLARGINE 100 UNITS/ML, PEN SQ-INSULIN SCH (22:57)
[2018-05-09 01:17] VITALS: BP 114/77
[2018-05-09 02:14] LABS: MEAN CORPUSCULAR HEMOGLOBIN 27.9 pg (27.0-34.8); MEAN CORPUSCULAR HGB CONC 33.3 g/dL (32.4-35.8); MEAN CORPUSCULAR VOLUME 83.8 fL (80-100); MEAN PLATELET VOLUME 7.9 fL (7.4-10.4); PLATELET COUNT 196 x10^3/uL (130-400); RED BLOOD COUNT 3.82 x10^6/uL (3.82-5.3); RED CELL DISTRIBUTION WIDTH 23.8 % (9.6-15.2)
[2018-05-09 02:19] LABS: ALANINE AMINOTRANSFERASE 36 U/L (12-78); ALBUMIN 3.1 g/dL (3.4-5.0); ANION GAP 7 mmol/L (5-15); CALCIUM 8.2 mg/dL (8.5-10.1); CHLORIDE 98 mmol/L (98-107); CREATININE 0.85 mg/dL (0.55-1.02)
[2018-05-09 02:21] LABS: ALKALINE PHOSPHATASE 89 U/L (45-117); BILIRUBIN,TOTAL 0.5 mg/dL (0.2-1.0); TOTAL PROTEIN 6.3 g/dL (6.4-8.2)
[2018-05-09 02:47] LABS: BASOPHILS % (AUTO) 0 % (0-1); EOSINOPHILS % (AUTO) 0 % (1-7); LYMPHOCYTES # (AUTO) 0.45 x10^3/uL (1-3.4); LYMPHOCYTES % (AUTO) 9 % (22-44); MD MORPH REVIEW ONLY; MONOCYTES % (AUTO) 2 % (2-9); NEUTROPHILS # (AUTO) 4.37 x10^3/uL (1.8-6.8); NEUTROPHILS % (AUTO) 89 % (42-75)
[2018-05-09 02:49] LABS: HYPOCHROMIA 1+; MICROCYTOSIS 1+; POLYCHROMASIA 1+
[2018-05-09] MEDS: HEPARIN 5,000 UNITS/ML, 1ML IV PRN ×2 (02:49→10:56)
[2018-05-09 02:50] LABS: ROULEAUX 1+
[2018-05-09 02:51] LABS: <PLATELET ESTIMATE> ADEQUATE; <PLT MORPHOLOGY> NORMAL PLT MORPH
[2018-05-09] MEDS: ALBUTEROL/IPRATROPIUM 2.5MG/0.5MG, 3 ML HHN SCH ×4 (02:52→22:30)
[2018-05-09] MEDS: methylPREDNISolone SOD SUCC 40 MG/ML IVPush SCH ×4 (04:13→21:49)
[2018-05-09] MEDS ORDERED: DOXYCYCLINE 100MG TABLET ONE (08:14)
[2018-05-09] MEDS: DILTIAZEM CD 180 MG CAP.ER.24H PO SCH (08:21)
[2018-05-09] MEDS: POTASSIUM CHLORIDE 20 MEQ TAB.ER.PRT PO SCH ×2 (08:21→16:37)
[2018-05-09] MEDS: FUROSEMIDE 40 MG/4 ML IV SCH ×2 (08:21→20:59)
[2018-05-09] MEDS: ASPIRIN 325 MG TABLET PO SCH (08:21)
[2018-05-09] MEDS: DIGOXIN 0.25 MG TABLET PO SCH (08:23)
[2018-05-09] MEDS: METOPROLOL TARTRATE 50 MG TABLET PO SCH ×2 (08:23→20:58)
[2018-05-09] MEDS: OMEPRAZOLE 20 MG CAPSULE.DR PO SCH (08:25)
[2018-05-09] MEDS: DOXYCYCLINE 100MG CAP PO SCH ×2 (08:26→20:58)
[2018-05-09] MEDS: INSULIN LISPRO 100 UNITS/ML, PEN SQ-INSULIN SCH ×4 (08:39→21:12)
[2018-05-09] MEDS: INSULIN GLARGINE 100 UNITS/ML, PEN SQ-INSULIN SCH (08:40)
[2018-05-09] MEDS ORDERED: ALBUTEROL/IPRATROPIUM 2.5MG/0.5MG, 3 ML NPPB SCH (09:00)
[2018-05-09 09:10] VITALS: BP 124/83
[2018-05-09] MEDS: BUDESONIDE 0.5 MG/2 ML INHA INH SCH ×2 (10:32→21:00)
[2018-05-09] MEDS: OXYcodone/APAP 5/325MG TABLET PO PRN ×2 (11:28→21:12)
[2018-05-09] MEDS: BENZONATATE 100 MG CAPSULE PO PRN ×2 (11:28→18:09)
[2018-05-09 12:20] VITALS: BP 100/70
[2018-05-09] MEDS: ENOXAPARIN 40 MG/0.4 ML SQ SCH (16:37)
[2018-05-09 17:12] LABS: RAPID INFLUENZA A Negative (Negative); RAPID INFLUENZA B Negative (Negative)
[2018-05-09] MEDS ORDERED: INSULIN LISPRO 100 UNITS/ML, PEN SQ-INSULIN ONE (18:00)
[2018-05-09 20:54] VITALS: BP 140/84
[2018-05-09] MEDS: ATORVASTATIN 80 MG TABLET PO SCH (20:58)
[2018-05-09] MEDS: GUAIFENESIN ER 600 MG TABLET PO SCH (20:59)
[2018-05-09] MEDS ORDERED: INSULIN GLARGINE 100 UNITS/ML, PEN SQ-INSULIN SCH (21:00)
[2018-05-09 21:45] VITALS: BP 114/74
[2018-05-10] MEDS: ALBUTEROL/IPRATROPIUM 2.5MG/0.5MG, 3 ML HHN SCH ×3 (03:25→21:56)
[2018-05-10 03:55] VITALS: BP 131/84
[2018-05-10] MEDS: methylPREDNISolone SOD SUCC 40 MG/ML IVPush SCH (04:32)
[2018-05-10 06:26] LABS: ALANINE AMINOTRANSFERASE 35 U/L (12-78); ANION GAP 5 mmol/L (5-15); CHLORIDE 97 mmol/L (98-107)
[2018-05-10 06:29] LABS: ALKALINE PHOSPHATASE 79 U/L (45-117); BILIRUBIN,TOTAL 0.5 mg/dL (0.2-1.0); CREATININE 0.81 mg/dL (0.55-1.02); TOTAL PROTEIN 6.1 g/dL (6.4-8.2)
[2018-05-10] MEDS ORDERED: prednisOLONE 15 MG/5 ML ORAL SOLN PO SCH (08:00)
[2018-05-10] MEDS: INSULIN LISPRO 100 UNITS/ML, PEN SQ-INSULIN SCH ×4 (08:15→20:24)
[2018-05-10 08:29] VITALS: BP 107/73
[2018-05-10] MEDS ORDERED: INSULIN GLARGINE 100 UNITS/ML, PEN SQ-INSULIN SCH ×2 (09:00→21:00)
[2018-05-10] MEDS: FUROSEMIDE 40 MG/4 ML IV SCH ×2 (10:15→20:27)
[2018-05-10] MEDS: METOPROLOL TARTRATE 50 MG TABLET PO SCH ×2 (10:16→20:27)
[2018-05-10] MEDS: BUDESONIDE 0.5 MG/2 ML INHA INH SCH ×2 (10:20→21:57)
[2018-05-10] MEDS: ASPIRIN 325 MG TABLET PO SCH (10:31)
[2018-05-10] MEDS: OMEPRAZOLE 20 MG CAPSULE.DR PO SCH (10:32)
[2018-05-10] MEDS: OXYcodone/APAP 5/325MG TABLET PO PRN ×2 (10:32→20:24)
[2018-05-10] MEDS: POTASSIUM CHLORIDE 20 MEQ TAB.ER.PRT PO SCH (10:33)
[2018-05-10] MEDS: DOXYCYCLINE 100MG CAP PO SCH ×2 (10:33→20:24)
[2018-05-10] MEDS: DILTIAZEM CD 180 MG CAP.ER.24H PO SCH (10:34)
[2018-05-10] MEDS: DIGOXIN 0.25 MG TABLET PO SCH (10:34)
[2018-05-10] MEDS: GUAIFENESIN ER 600 MG TABLET PO SCH ×2 (10:34→20:25)
[2018-05-10] MEDS ORDERED: INSULIN GLARGINE 100 UNITS/ML, PEN SQ-INSULIN ONE (12:00)
[2018-05-10 14:56] VITALS: BP 119/81
[2018-05-10] MEDS: ENOXAPARIN 40 MG/0.4 ML SQ SCH (17:07)
[2018-05-10] MEDS: ATORVASTATIN 80 MG TABLET PO SCH (20:24)
[2018-05-10 20:27] VITALS: BP 130/84
[2018-05-10 20:56] VITALS: BP 110/62
[2018-05-11 01:20] VITALS: BP 112/68
[2018-05-11] MEDS: ALBUTEROL/IPRATROPIUM 2.5MG/0.5MG, 3 ML HHN SCH ×3 (03:08→21:41)
[2018-05-11 06:07] LABS: ALBUMIN 2.9 g/dL (3.4-5.0); ANION GAP 6 mmol/L (5-15); CALCIUM 8.1 mg/dL (8.5-10.1); CHLORIDE 96 mmol/L (98-107)
[2018-05-11 06:11] LABS: ALANINE AMINOTRANSFERASE 36 U/L (12-78); ALKALINE PHOSPHATASE 82 U/L (45-117); BILIRUBIN,TOTAL 0.4 mg/dL (0.2-1.0); CREATININE 0.69 mg/dL (0.55-1.02); TOTAL PROTEIN 6.2 g/dL (6.4-8.2)
[2018-05-11 07:57] VITALS: BP 122/85
[2018-05-11] MEDS: BUDESONIDE 0.5 MG/2 ML INHA INH SCH ×2 (08:00→21:41)
[2018-05-11] MEDS ORDERED: prednisOLONE 15 MG/5 ML ORAL SOLN PO SCH (08:00)
[2018-05-11] MEDS: prednisOLONE 15 MG/5 ML ORAL SOLN PO SCH (08:00)
[2018-05-11] MEDS ORDERED: DOXYCYCLINE 100MG TABLET ONE (08:40)
[2018-05-11] MEDS: INSULIN LISPRO 100 UNITS/ML, PEN SQ-INSULIN SCH ×4 (08:51→20:54)
[2018-05-11] MEDS: INSULIN GLARGINE 100 UNITS/ML, PEN SQ-INSULIN SCH ×2 (08:52→20:54)
[2018-05-11] MEDS: GUAIFENESIN ER 600 MG TABLET PO SCH ×2 (08:57→20:55)
[2018-05-11] MEDS: ASPIRIN 325 MG TABLET PO SCH (08:57)
[2018-05-11] MEDS: POTASSIUM CHLORIDE 20 MEQ TAB.ER.PRT PO SCH (08:57)
[2018-05-11] MEDS: METOPROLOL TARTRATE 50 MG TABLET PO SCH ×2 (08:57→20:55)
[2018-05-11] MEDS: DIGOXIN 0.25 MG TABLET PO SCH (08:58)
[2018-05-11] MEDS: OMEPRAZOLE 20 MG CAPSULE.DR PO SCH (08:58)
[2018-05-11] MEDS: DILTIAZEM CD 180 MG CAP.ER.24H PO SCH (08:58)
[2018-05-11] MEDS: FUROSEMIDE 40 MG TABLET PO SCH (09:00)
[2018-05-11] MEDS: DOXYCYCLINE 100MG CAP PO SCH ×2 (09:00→20:55)
[2018-05-11 13:03] VITALS: BP 123/78
[2018-05-11] MEDS: ENOXAPARIN 40 MG/0.4 ML SQ SCH (16:58)
[2018-05-11] MEDS: OXYcodone/APAP 5/325MG TABLET PO PRN ×2 (17:05→23:57)
[2018-05-11 20:35] VITALS: BP 149/93
[2018-05-11] MEDS: ATORVASTATIN 80 MG TABLET PO SCH (20:55)
[2018-05-12 01:14] VITALS: BP 143/79
[2018-05-12] MEDS ORDERED: SIMETHICONE 125 MG CHEW TAB PO ONE (02:30)
[2018-05-12] MEDS: ALBUTEROL/IPRATROPIUM 2.5MG/0.5MG, 3 ML HHN SCH ×3 (02:51→16:00)
[2018-05-12] MEDS ORDERED: OXYcodone/APAP 5/325MG TABLET PO ONE (04:30)
[2018-05-12] MEDS: INSULIN LISPRO 100 UNITS/ML, PEN SQ-INSULIN SCH ×5 (07:00→21:30)
[2018-05-12 07:16] LABS: ALANINE AMINOTRANSFERASE 77 U/L (12-78); ALBUMIN 3.1 g/dL (3.4-5.0); ANION GAP 5 mmol/L (5-15); CALCIUM 8.3 mg/dL (8.5-10.1); CHLORIDE 98 mmol/L (98-107)
[2018-05-12 07:18] LABS: ALKALINE PHOSPHATASE 85 U/L (45-117); BILIRUBIN,TOTAL 0.6 mg/dL (0.2-1.0); TOTAL PROTEIN 6.3 g/dL (6.4-8.2)
[2018-05-12 07:58] VITALS: BP 142/88
[2018-05-12] MEDS: ASPIRIN 325 MG TABLET PO SCH (08:05)
[2018-05-12] MEDS: INSULIN GLARGINE 100 UNITS/ML, PEN SQ-INSULIN SCH ×2 (08:05→21:00)
[2018-05-12] MEDS: prednisOLONE 15 MG/5 ML ORAL SOLN PO SCH (08:05)
[2018-05-12] MEDS: GUAIFENESIN ER 600 MG TABLET PO SCH ×2 (08:05→21:00)
[2018-05-12] MEDS: METOPROLOL TARTRATE 50 MG TABLET PO SCH ×2 (08:06→21:00)
[2018-05-12] MEDS: POTASSIUM CHLORIDE 20 MEQ TAB.ER.PRT PO SCH ×2 (08:06→21:00)
[2018-05-12] MEDS: OMEPRAZOLE 20 MG CAPSULE.DR PO SCH (08:06)
[2018-05-12] MEDS: DILTIAZEM CD 180 MG CAP.ER.24H PO SCH (08:06)
[2018-05-12] MEDS: DIGOXIN 0.25 MG TABLET PO SCH (08:06)
[2018-05-12] MEDS: FUROSEMIDE 40 MG TABLET PO SCH (08:06)
[2018-05-12] MEDS: DOXYCYCLINE 100MG CAP PO SCH ×2 (08:07→21:00)
[2018-05-12] MEDS: BUDESONIDE 0.5 MG/2 ML INHA INH SCH (09:00)
[2018-05-12] MEDS ORDERED: OMNIPAQUE 350 MG/ML, 100ML BOTTLE ONE (10:53)
[2018-05-12] MEDS: morphine SULFATE 10 MG/ML, 1ML IVPush PRN ×3 (11:41→13:19)
[2018-05-12] MEDS: SODIUM CHLORIDE 0.9% 1,000 ML IV SCH ×2 (12:25→20:40)
[2018-05-12] MEDS: MEROPENEM 500 MG in SODIUM CHLORIDE 0.9% 100 ML IV SCH ×2 (12:26→20:00)
[2018-05-12] MEDS: METRONIDAZOLE PMX 500MG/100ML 100 ML IV SCH ×2 (13:11→23:13)
[2018-05-12 13:30] LABS: MEAN CORPUSCULAR HEMOGLOBIN 26.7 pg (27.0-34.8); MEAN CORPUSCULAR VOLUME 83.3 fL (80-100); MEAN PLATELET VOLUME 8.1 fL (7.4-10.4); PLATELET COUNT 253 x10^3/uL (130-400); RED BLOOD COUNT 4.98 x10^6/uL (3.82-5.3); RED CELL DISTRIBUTION WIDTH 21.6 % (9.6-15.2)
[2018-05-12 13:45] LABS: MD YES
[2018-05-12 13:47] LABS: BAND#(MANUAL) 0.43 x10^3/uL; BANDS%(MANUAL) 5 % (0-7); LYMPH#(MANUAL) 1.29 x10^3/uL (1-3.4); LYMPHS% (MANUAL) 15 % (22-44); MONOS#(MANUAL) 0.26 x10^3/uL (0.3-2.7); MONOS% (MANUAL) 3 % (2-9); SEG#(MANUAL) 6.62 x10^3/uL (1.8-6.8); SEGS% (MANUAL) 77 % (42-75)
[2018-05-12 13:51] LABS: <PLATELET ESTIMATE> ADEQUATE; <PLT MORPHOLOGY> NORMAL PLT MORPH; ANISOCYTOSIS 1+
[2018-05-12 13:54] LABS: HEMOGRAM NOTE RECHECKED
[2018-05-12 14:37] VITALS: BP 129/91
[2018-05-12] MEDS ORDERED: BUPIVACAINE/PF-EPI 0.5% 1:200K ONE (16:47)
[2018-05-12] MEDS ORDERED: FENTANYL PF 250 MCG/5ML ONE (16:56)
[2018-05-12] MEDS ORDERED: ROCURONIUM 10MG/ML,5ML ONE (19:11)
[2018-05-12] MEDS ORDERED: PROPOFOL 10 MG/ML, 20ML ONE (19:11)
[2018-05-12] MEDS ORDERED: SUCCINYLCHOLINE 20 MG/ML, 10ML ONE (19:11)
[2018-05-12] MEDS ORDERED: PHENYLEPHRINE 10 MG/ML ONE (19:11)
[2018-05-12] MEDS ORDERED: MIDAZOLAM 1 MG/ML, 2ML ONE ×3 (19:38→21:19)
[2018-05-12] MEDS ORDERED: FENTANYL PF 100 MCG/2ML ONE (19:45)
[2018-05-12] MEDS ORDERED: PROPOFOL 100 ML IV ONE (20:06)
[2018-05-12] MEDS: ALBUTEROL/IPRATROPIUM 2.5MG/0.5MG, 3 ML INLINE SCH ×2 (20:30→21:30)
[2018-05-12] MEDS: ATORVASTATIN 80 MG TABLET PO SCH (21:00)
[2018-05-12] MEDS ORDERED: DEXMEDETOMIDINE 1,000 MCG in SODIUM CHLORIDE 0.9% 240 ML IV PRN (21:01)
[2018-05-12] MEDS ORDERED: SODIUM CHLORIDE 0.9%, 500ML IV ONE (21:30)
[2018-05-12] MEDS ORDERED: PHARMACY MAY ADJ FOR RENAL FX MC SCH (21:30)
[2018-05-12] MEDS ORDERED: GLUCAGON 1 MG IM PRN (21:30)
[2018-05-12] MEDS ORDERED: BISACODYL 10 MG SUPP PR PRN (21:30)
[2018-05-12] MEDS ORDERED: SENNOSIDES 8.8 MG/5 ML ORAL SOL NG PRN (21:30)
[2018-05-12] MEDS ORDERED: SENNA/DOCUSATE TABLET NG PRN (21:30)
[2018-05-12] MEDS ORDERED: LACTULOSE 20 GM/30 ML UDC NG PRN (21:30)
[2018-05-12] MEDS ORDERED: DEXTROSE 50%, 50ML SYRINGE IVPush PRN (21:30)
[2018-05-12] MEDS ORDERED: DEXTROSE 4 GM TAB.CHEW PO PRN (21:30)
[2018-05-12] MEDS ORDERED: LIDOCAINE-MPF 1%, 2ML ENDO PRN (21:30)
[2018-05-12] MEDS: FENTANYL PF 100 MCG/2ML IVPush PRN ×2 (21:36→22:45)
[2018-05-12] MEDS: METOPROLOL 1 MG/ML, 5ML IVPush PRN (22:24)
[2018-05-12] MEDS: SODIUM CHLORIDE FLUSH 10ML SYR IVF SCH (23:21)
[2018-05-13] MEDS: ALBUTEROL/IPRATROPIUM 2.5MG/0.5MG, 3 ML INLINE SCH ×7 (00:30→21:30)
[2018-05-13] MEDS: LINEZOLID PMX 600MG/300ML 300 ML IV SCH ×3 (00:34→21:49)
[2018-05-13] MEDS: FENTANYL PF 100 MCG/2ML IVPush PRN ×7 (01:21→22:38)
[2018-05-13] MEDS: METRONIDAZOLE PMX 500MG/100ML 100 ML IV SCH ×2 (02:36→06:14)
[2018-05-13] MEDS: MEROPENEM 500 MG in SODIUM CHLORIDE 0.9% 100 ML IV SCH ×3 (04:48→19:58)
[2018-05-13 04:52] LABS: MEAN CORPUSCULAR HGB CONC 32.4 g/dL (32.4-35.8); MEAN CORPUSCULAR VOLUME 83.3 fL (80-100); MEAN PLATELET VOLUME 7.5 fL (7.4-10.4); PLATELET COUNT 242 x10^3/uL (130-400); RED BLOOD COUNT 4.56 x10^6/uL (3.82-5.3); RED CELL DISTRIBUTION WIDTH 22.5 % (9.6-15.2)
[2018-05-13 04:55] LABS: ALBUMIN 2.5 g/dL (3.4-5.0); ANION GAP 5 mmol/L (5-15); CALCIUM 7.6 mg/dL (8.5-10.1); CHLORIDE 100 mmol/L (98-107)
[2018-05-13 04:59] LABS: ALANINE AMINOTRANSFERASE 65 U/L (12-78); ALKALINE PHOSPHATASE 72 U/L (45-117); BILIRUBIN,TOTAL 0.7 mg/dL (0.2-1.0); CREATININE 0.61 mg/dL (0.55-1.02); TOTAL PROTEIN 5.4 g/dL (6.4-8.2)
[2018-05-13 05:53] LABS: BASOPHILS # (AUTO) 0.02 x10^3/uL (0-0.1); BASOPHILS % (AUTO) 0 % (0-1); EOSINOPHILS # (AUTO) 0.01 x10^3/uL (0-0.4); EOSINOPHILS % (AUTO) 0 % (1-7); LYMPHOCYTES # (AUTO) 0.72 x10^3/uL (1-3.4); LYMPHOCYTES % (AUTO) 8 % (22-44); MD SCAN; MONOCYTES # (AUTO) 0.11 x10^3/uL (0.2-0.8); MONOCYTES % (AUTO) 1 % (2-9); NEUTROPHILS % (AUTO) 90 % (42-75)
[2018-05-13] MEDS: INSULIN LISPRO 100 UNITS/ML, PEN SQ-INSULIN SCH ×7 (07:00→17:04)
[2018-05-13] MEDS ORDERED: MAGNESIUM SULFATE PMX 2GM/50ML 50 ML IV ONE ×2 (08:30→10:30)
[2018-05-13] MEDS ORDERED: AMIODARONE 900 MG in DEXTROSE 5% 482 ML IV PRN (09:00)
[2018-05-13] MEDS: INSULIN GLARGINE 100 UNITS/ML, PEN SQ-INSULIN SCH ×2 (09:00→21:00)
[2018-05-13] MEDS ORDERED: AMIODARONE 150 MG in DEXTROSE 5% 100 ML IV ONE (09:00)
[2018-05-13] MEDS ORDERED: FILTER 0.22 MICRON IV PRN (09:00)
[2018-05-13] MEDS: GUAIFENESIN ER 600 MG TABLET PO SCH (09:00)
[2018-05-13] MEDS: BUDESONIDE 0.5 MG/2 ML INHA NPPB SCH ×2 (10:20→19:34)
[2018-05-13] MEDS: PROPOFOL 100 ML IV PRN ×3 (10:50→20:21)
[2018-05-13] MEDS: SODIUM CHLORIDE FLUSH 10ML SYR IVF SCH ×2 (11:32→21:46)
[2018-05-13] MEDS: PANTOPRAZOLE 40 MG IV IV SCH (11:32)
[2018-05-13] MEDS: SODIUM CHLORIDE 0.9% 1,000 ML IV SCH ×2 (12:08→21:46)
[2018-05-13] MEDS: METOPROLOL TARTRATE 25 MG TABLET PO SCH ×2 (12:27→17:02)
[2018-05-13] MEDS: POTASSIUM CHLORIDE 20 MEQ TAB.ER.PRT PO SCH ×2 (12:27→21:29)
[2018-05-13] MEDS: DIGOXIN 0.25 MG TABLET PO SCH (12:28)
[2018-05-13 14:14] LABS: CULTURE INDICATED? YES; MICROSCOPIC INDICATED
[2018-05-13] MEDS: METOPROLOL 1 MG/ML, 5ML IVPush PRN ×2 (15:07→20:17)
[2018-05-13] MEDS: GUAIFENESIN 100 MG/5 ML, 10ML UDC NG SCH (21:46)
[2018-05-14] MEDS: PROPOFOL 100 ML IV PRN ×2 (00:49→05:38)
[2018-05-14] MEDS: FENTANYL PF 100 MCG/2ML IVPush PRN ×6 (00:53→14:54)
[2018-05-14] MEDS: INSULIN LISPRO 100 UNITS/ML, PEN SQ-INSULIN SCH ×4 (00:59→18:00)
[2018-05-14] MEDS: METOPROLOL 1 MG/ML, 5ML IVPush PRN ×2 (01:15→09:39)
[2018-05-14] MEDS: ALBUTEROL/IPRATROPIUM 2.5MG/0.5MG, 3 ML INLINE SCH ×2 (03:05→07:14)
[2018-05-14] MEDS: GUAIFENESIN 100 MG/5 ML, 10ML UDC NG SCH ×6 (03:15→22:56)
[2018-05-14] MEDS: MEROPENEM 500 MG in SODIUM CHLORIDE 0.9% 100 ML IV SCH ×3 (04:07→20:12)
[2018-05-14 04:15] VITALS: BP 111/72
[2018-05-14] MEDS: METOPROLOL TARTRATE 25 MG TABLET PO SCH ×3 (05:37→18:20)
[2018-05-14 05:49] LABS: MEAN CORPUSCULAR HEMOGLOBIN 27.4 pg (27.0-34.8); MEAN CORPUSCULAR HGB CONC 32.8 g/dL (32.4-35.8); MEAN CORPUSCULAR VOLUME 83.4 fL (80-100); MEAN PLATELET VOLUME 7.8 fL (7.4-10.4); PLATELET COUNT 253 x10^3/uL (130-400); RED BLOOD COUNT 4.27 x10^6/uL (3.82-5.3); RED CELL DISTRIBUTION WIDTH 23.1 % (9.6-15.2)
[2018-05-14 05:58] LABS: ANION GAP 5 mmol/L (5-15); CALCIUM 7.7 mg/dL (8.5-10.1); CHLORIDE 102 mmol/L (98-107); CREATININE 0.65 mg/dL (0.55-1.02)
[2018-05-14 06:09] LABS: BASOPHILS # (AUTO) 0.04 x10^3/uL (0-0.1); BASOPHILS % (AUTO) 0 % (0-1); EOSINOPHILS # (AUTO) 0.14 x10^3/uL (0-0.4); EOSINOPHILS % (AUTO) 1 % (1-7); LYMPHOCYTES # (AUTO) 1.28 x10^3/uL (1-3.4); LYMPHOCYTES % (AUTO) 11 % (22-44); MD SCAN; MONOCYTES # (AUTO) 0.32 x10^3/uL (0.2-0.8); MONOCYTES % (AUTO) 3 % (2-9); NEUTROPHILS % (AUTO) 84 % (42-75)
[2018-05-14] MEDS: SODIUM CHLORIDE 0.9% 1,000 ML IV SCH (06:12)
[2018-05-14] MEDS: BUDESONIDE 0.5 MG/2 ML INHA NPPB SCH ×2 (07:14→19:12)
[2018-05-14] MEDS ORDERED: CALCIUM CHLORIDE 10% IV ONE (09:00)
[2018-05-14] MEDS ORDERED: SODIUM CHLORIDE 0.9% IV ONE (09:00)
[2018-05-14] MEDS: DIGOXIN 0.25 MG TABLET PO SCH (09:32)
[2018-05-14] MEDS: LINEZOLID PMX 600MG/300ML 300 ML IV SCH ×2 (09:33→22:57)
[2018-05-14] MEDS: SODIUM CHLORIDE FLUSH 10ML SYR IVF SCH ×2 (09:33→22:57)
[2018-05-14] MEDS: POTASSIUM CHLORIDE 20 MEQ TAB.ER.PRT PO SCH ×2 (09:33→20:12)
[2018-05-14] MEDS: PANTOPRAZOLE 40 MG IV IV SCH (09:33)
[2018-05-14] MEDS ORDERED: ALBUTEROL/IPRATROPIUM 2.5MG/0.5MG, 3 ML NPPB PRN (13:30)
[2018-05-14] MEDS ORDERED: CALCIUM CHLORIDE 13.6 MEQ in SODIUM CHLORIDE 0.9% 100 ML IV ONE (15:30)
[2018-05-14] MEDS ORDERED: METOPROLOL TARTRATE 25 MG TABLET PO SCH (18:00)
[2018-05-14] MEDS: ALBUTEROL/IPRATROPIUM 2.5MG/0.5MG, 3 ML NPPB SCH ×3 (18:00→22:50)
[2018-05-14] MEDS: morphine SULFATE 10 MG/ML, 1ML IVPush PRN ×2 (18:20→22:56)
[2018-05-15] MEDS: METOPROLOL TARTRATE 25 MG TABLET PO SCH ×4 (00:24→18:56)
[2018-05-15] MEDS: morphine SULFATE 10 MG/ML, 1ML IVPush PRN ×7 (00:38→23:07)
[2018-05-15] MEDS: INSULIN LISPRO 100 UNITS/ML, PEN SQ-INSULIN SCH ×4 (00:47→17:55)
[2018-05-15] MEDS: GUAIFENESIN 100 MG/5 ML, 10ML UDC NG SCH ×5 (02:47→20:09)
[2018-05-15 04:00] VITALS: BP 158/104
[2018-05-15] MEDS: MEROPENEM 500 MG in SODIUM CHLORIDE 0.9% 100 ML IV SCH ×3 (04:56→19:48)
[2018-05-15 05:28] LABS: MEAN CORPUSCULAR HEMOGLOBIN 26.7 pg (27.0-34.8); MEAN CORPUSCULAR VOLUME 83.4 fL (80-100); MEAN PLATELET VOLUME 7.8 fL (7.4-10.4); PLATELET COUNT 296 x10^3/uL (130-400); RED BLOOD COUNT 4.49 x10^6/uL (3.82-5.3); RED CELL DISTRIBUTION WIDTH 22.2 % (9.6-15.2)
[2018-05-15 05:34] LABS: ANION GAP 5 mmol/L (5-15); CALCIUM 8.2 mg/dL (8.5-10.1); CHLORIDE 101 mmol/L (98-107)
[2018-05-15 05:36] LABS: CREATININE 0.65 mg/dL (0.55-1.02); TRIGLYCERIDES 140 mg/dL (50-200)
[2018-05-15] MEDS: ALBUTEROL/IPRATROPIUM 2.5MG/0.5MG, 3 ML NPPB SCH ×5 (06:00→23:50)
[2018-05-15 06:17] LABS: MD SCAN
[2018-05-15 06:18] LABS: BASOPHILS # (AUTO) 0.01 x10^3/uL (0-0.1); BASOPHILS % (AUTO) 0 % (0-1); EOSINOPHILS # (AUTO) 0.17 x10^3/uL (0-0.4); EOSINOPHILS % (AUTO) 2 % (1-7); LYMPHOCYTES # (AUTO) 1.68 x10^3/uL (1-3.4); LYMPHOCYTES % (AUTO) 20 % (22-44); MONOCYTES # (AUTO) 0.43 x10^3/uL (0.2-0.8); MONOCYTES % (AUTO) 5 % (2-9); NEUTROPHILS % (AUTO) 73 % (42-75)
[2018-05-15] MEDS: BUDESONIDE 0.5 MG/2 ML INHA NPPB SCH ×2 (06:32→19:34)
[2018-05-15] MEDS: POTASSIUM CHLORIDE 20 MEQ TAB.ER.PRT PO SCH ×2 (08:28→20:09)
[2018-05-15] MEDS: DIGOXIN 0.25 MG TABLET PO SCH (08:28)
[2018-05-15] MEDS: PANTOPRAZOLE 40 MG IV IV SCH (08:28)
[2018-05-15] MEDS: SODIUM CHLORIDE FLUSH 10ML SYR IVF SCH ×2 (08:29→20:10)
[2018-05-15] MEDS ORDERED: MAGNESIUM SULFATE PMX 2GM/50ML 50 ML IV ONE (11:30)
[2018-05-15 19:18] VITALS: BP 144/92
[2018-05-15] MEDS: APIXABAN 5 MG TABLET PO SCH (20:09)
[2018-05-15] MEDS: METOPROLOL 1 MG/ML, 5ML IVPush PRN (22:36)
[2018-05-16] MEDS: METOPROLOL TARTRATE 25 MG TABLET PO SCH ×2 (00:15→04:34)
[2018-05-16] MEDS: HYDROcodone/APAP 10/325 MG TABLET PO PRN ×4 (00:51→20:33)
[2018-05-16] MEDS: GUAIFENESIN 100 MG/5 ML, 10ML UDC NG SCH ×7 (00:51→20:33)
[2018-05-16 01:12] VITALS: BP 142/108
[2018-05-16] MEDS: MEROPENEM 500 MG in SODIUM CHLORIDE 0.9% 100 ML IV SCH ×3 (03:27→20:32)
[2018-05-16] MEDS ORDERED: HYDROcodone/APAP 10/325 MG TABLET PO ONE (03:30)
[2018-05-16 04:39] VITALS: BP 173/110
[2018-05-16] MEDS: INSULIN LISPRO 100 UNITS/ML, PEN SQ-INSULIN SCH ×4 (05:33→18:00)
[2018-05-16] MEDS: ALBUTEROL/IPRATROPIUM 2.5MG/0.5MG, 3 ML NPPB SCH ×5 (06:00→22:00)
[2018-05-16] MEDS: BUDESONIDE 0.5 MG/2 ML INHA NPPB SCH ×2 (07:08→19:09)
[2018-05-16 07:16] LABS: ALANINE AMINOTRANSFERASE 37 U/L (12-78); ALBUMIN 2.6 g/dL (3.4-5.0); ANION GAP 6 mmol/L (5-15); CALCIUM 8.8 mg/dL (8.5-10.1); CHLORIDE 98 mmol/L (98-107); CREATININE 0.51 mg/dL (0.55-1.02)
[2018-05-16 07:18] LABS: ALKALINE PHOSPHATASE 78 U/L (45-117); BILIRUBIN,TOTAL 1.1 mg/dL (0.2-1.0); TOTAL PROTEIN 6.6 g/dL (6.4-8.2)
[2018-05-16 07:29] LABS: MEAN CORPUSCULAR HEMOGLOBIN 26.6 pg (27.0-34.8); MEAN CORPUSCULAR VOLUME 83.1 fL (80-100); MEAN PLATELET VOLUME 7.1 fL (7.4-10.4); PLATELET COUNT 348 x10^3/uL (130-400); RED BLOOD COUNT 5.12 x10^6/uL (3.82-5.3); RED CELL DISTRIBUTION WIDTH 21.7 % (9.6-15.2)
[2018-05-16 07:33] VITALS: BP 151/104
[2018-05-16 08:33] LABS: MD MORPH REVIEW ONLY
[2018-05-16 08:34] LABS: ANISOCYTOSIS 1+; BASOPHILS # (AUTO) 0.01 x10^3/uL (0-0.1); BASOPHILS % (AUTO) 0 % (0-1); EOSINOPHILS % (AUTO) 1 % (1-7); LYMPHOCYTES # (AUTO) 1.27 x10^3/uL (1-3.4); LYMPHOCYTES % (AUTO) 12 % (22-44); MONOCYTES # (AUTO) 0.09 x10^3/uL (0.2-0.8); MONOCYTES % (AUTO) 1 % (2-9); NEUTROPHILS # (AUTO) 9.35 x10^3/uL (1.8-6.8); NEUTROPHILS % (AUTO) 86 % (42-75)
[2018-05-16 08:35] LABS: <PLATELET ESTIMATE> ADEQUATE; <PLT MORPHOLOGY> NORMAL PLT MORPH; OVALOCYTES 1+; SPHEROCYTES 1+; TEAR DROPS 1+
[2018-05-16] MEDS: POTASSIUM CHLORIDE 20 MEQ TAB.ER.PRT PO SCH ×3 (09:00→20:33)
[2018-05-16] MEDS: APIXABAN 5 MG TABLET PO SCH ×2 (09:03→20:33)
[2018-05-16] MEDS: PANTOPRAZOLE 40 MG IV IV SCH (09:03)
[2018-05-16] MEDS: DIGOXIN 0.25 MG TABLET PO SCH (09:03)
[2018-05-16] MEDS: SODIUM CHLORIDE FLUSH 10ML SYR IVF SCH ×2 (09:03→20:35)
[2018-05-16] MEDS ORDERED: MORPHINE SULFATE 4 MG/ML, 1ML ONE (09:20)
[2018-05-16] MEDS: MORPHINE SULFATE 4 MG/ML, 1ML IVPush PRN ×2 (09:23→16:07)
[2018-05-16 09:45] VITALS: BP 143/87
[2018-05-16] MEDS: METOPROLOL 1 MG/ML, 5ML IVPush PRN (09:45)
[2018-05-16 12:39] VITALS: BP 141/68
[2018-05-16] MEDS ORDERED: METOPROLOL TARTRATE 50 MG TABLET PO ONE (13:00)
[2018-05-16] MEDS: METOPROLOL TARTRATE 50 MG TABLET PO SCH (18:28)
[2018-05-16 20:52] VITALS: BP 140/92
[2018-05-17] MEDS: GUAIFENESIN 100 MG/5 ML, 10ML UDC NG SCH ×6 (00:04→20:00)
[2018-05-17] MEDS: MORPHINE SULFATE 4 MG/ML, 1ML IVPush PRN ×5 (00:31→19:19)
[2018-05-17] MEDS: ALBUTEROL/IPRATROPIUM 2.5MG/0.5MG, 3 ML NPPB SCH ×7 (02:08→22:33)
[2018-05-17 02:16] VITALS: BP 150/88
[2018-05-17] MEDS: HYDROcodone/APAP 10/325 MG TABLET PO PRN ×3 (03:08→23:41)
[2018-05-17] MEDS: MEROPENEM 500 MG in SODIUM CHLORIDE 0.9% 100 ML IV SCH ×3 (04:11→19:59)
[2018-05-17 05:31] LABS: MEAN CORPUSCULAR HEMOGLOBIN 26.8 pg (27.0-34.8); MEAN CORPUSCULAR HGB CONC 32.2 g/dL (32.4-35.8); MEAN CORPUSCULAR VOLUME 83.3 fL (80-100); MEAN PLATELET VOLUME 7.2 fL (7.4-10.4); PLATELET COUNT 302 x10^3/uL (130-400); RED BLOOD COUNT 4.78 x10^6/uL (3.82-5.3); RED CELL DISTRIBUTION WIDTH 21.6 % (9.6-15.2)
[2018-05-17 05:41] LABS: ALBUMIN 2.3 g/dL (3.4-5.0); ANION GAP 6 mmol/L (5-15); CALCIUM 8.2 mg/dL (8.5-10.1); CHLORIDE 99 mmol/L (98-107)
[2018-05-17 05:46] LABS: ALANINE AMINOTRANSFERASE 31 U/L (12-78); ALKALINE PHOSPHATASE 75 U/L (45-117); BILIRUBIN,TOTAL 0.8 mg/dL (0.2-1.0); CREATININE 0.41 mg/dL (0.55-1.02); TOTAL PROTEIN 5.9 g/dL (6.4-8.2)
[2018-05-17] MEDS: INSULIN LISPRO 100 UNITS/ML, PEN SQ-INSULIN SCH ×4 (06:00→20:13)
[2018-05-17 06:08] LABS: BASOPHILS # (AUTO) 0.04 x10^3/uL (0-0.1); BASOPHILS % (AUTO) 0 % (0-1); EOSINOPHILS # (AUTO) 0.09 x10^3/uL (0-0.4); EOSINOPHILS % (AUTO) 1 % (1-7); LYMPHOCYTES # (AUTO) 1.55 x10^3/uL (1-3.4); LYMPHOCYTES % (AUTO) 14 % (22-44); MD SCAN; MONOCYTES % (AUTO) 6 % (2-9); NEUTROPHILS # (AUTO) 8.86 x10^3/uL (1.8-6.8); NEUTROPHILS % (AUTO) 79 % (42-75)
[2018-05-17] MEDS: METOPROLOL TARTRATE 50 MG TABLET PO SCH ×2 (06:09→17:56)
[2018-05-17 07:10] VITALS: BP 125/81
[2018-05-17] MEDS: BUDESONIDE 0.5 MG/2 ML INHA NPPB SCH ×4 (08:10→19:30)
[2018-05-17] MEDS: PANTOPRAZOLE 40 MG IV IV SCH (09:00)
[2018-05-17] MEDS ORDERED: SODIUM CHLORIDE 0.9% 1,000 ML IV SCH (09:00)
[2018-05-17] MEDS: DIGOXIN 0.25 MG TABLET PO SCH (10:16)
[2018-05-17] MEDS: APIXABAN 5 MG TABLET PO SCH ×2 (10:16→20:00)
[2018-05-17] MEDS: SODIUM CHLORIDE FLUSH 10ML SYR IVF SCH ×2 (10:17→19:59)
[2018-05-17 14:18] VITALS: BP 165/108
[2018-05-17] MEDS: ONDANSETRON ODT 4 MG PO PRN ×2 (15:55→16:07)
[2018-05-17] MEDS: METOPROLOL 1 MG/ML, 5ML IVPush PRN (19:59)
[2018-05-17 20:24] VITALS: BP 116/78
[2018-05-18] MEDS: GUAIFENESIN 100 MG/5 ML, 10ML UDC NG SCH ×6 (01:00→20:00)
[2018-05-18 02:08] VITALS: BP 126/88
[2018-05-18] MEDS: MORPHINE SULFATE 4 MG/ML, 1ML IVPush PRN ×3 (02:43→12:18)
[2018-05-18] MEDS: INSULIN LISPRO 100 UNITS/ML, PEN SQ-INSULIN SCH ×4 (02:51→21:00)
[2018-05-18] MEDS: MEROPENEM 500 MG in SODIUM CHLORIDE 0.9% 100 ML IV SCH ×2 (03:40→12:18)
[2018-05-18] MEDS: ONDANSETRON ODT 4 MG PO PRN (03:40)
[2018-05-18] MEDS: METOPROLOL TARTRATE 50 MG TABLET PO SCH ×2 (05:09→19:56)
[2018-05-18] MEDS: HYDROcodone/APAP 10/325 MG TABLET PO PRN ×2 (05:09→19:55)
[2018-05-18] MEDS: SODIUM CHLORIDE 0.9% 1,000 ML IV SCH (05:14)
[2018-05-18 07:02] VITALS: BP 150/95
[2018-05-18 08:25] LABS: BASOPHILS # (AUTO) 0.02 x10^3/uL (0-0.1); BASOPHILS % (AUTO) 0 % (0-1); EOSINOPHILS # (AUTO) 0.08 x10^3/uL (0-0.4); EOSINOPHILS % (AUTO) 1 % (1-7); LYMPHOCYTES # (AUTO) 1.41 x10^3/uL (1-3.4); LYMPHOCYTES % (AUTO) 11 % (22-44); MD NO; MEAN CORPUSCULAR HEMOGLOBIN 26.6 pg (27.0-34.8); MEAN CORPUSCULAR HGB CONC 32.1 g/dL (32.4-35.8); MEAN CORPUSCULAR VOLUME 82.9 fL (80-100); MEAN PLATELET VOLUME 7.2 fL (7.4-10.4); MONOCYTES # (AUTO) 0.62 x10^3/uL (0.2-0.8); MONOCYTES % (AUTO) 5 % (2-9); NEUTROPHILS # (AUTO) 10.32 x10^3/uL (1.8-6.8); NEUTROPHILS % (AUTO) 83 % (42-75); PLATELET COUNT 316 x10^3/uL (130-400); RED BLOOD COUNT 4.53 x10^6/uL (3.82-5.3)
[2018-05-18 08:39] LABS: ALBUMIN 2.3 g/dL (3.4-5.0); ANION GAP 6 mmol/L (5-15); CALCIUM 8.1 mg/dL (8.5-10.1); CHLORIDE 100 mmol/L (98-107); CREATININE 0.38 mg/dL (0.55-1.02)
[2018-05-18] MEDS: SODIUM CHLORIDE FLUSH 10ML SYR IVF SCH ×2 (09:00→20:00)
[2018-05-18] MEDS: APIXABAN 5 MG TABLET PO SCH ×2 (09:15→20:01)
[2018-05-18] MEDS: DIGOXIN 0.25 MG TABLET PO SCH (09:15)
[2018-05-18] MEDS: PANTOPRAZOLE 40 MG IV IV SCH (09:16)
[2018-05-18] MEDS: ALBUTEROL/IPRATROPIUM 2.5MG/0.5MG, 3 ML NPPB SCH ×3 (14:00→21:12)
[2018-05-18 14:44] VITALS: BP 117/75
[2018-05-18 20:03] VITALS: BP 150/113
[2018-05-18] MEDS: BUDESONIDE 0.5 MG/2 ML INHA NPPB SCH (21:00)
[2018-05-19] MEDS: GUAIFENESIN 100 MG/5 ML, 10ML UDC NG SCH ×6 (01:00→20:28)
[2018-05-19 01:18] VITALS: BP 156/93
[2018-05-19] MEDS: MEROPENEM 500 MG in SODIUM CHLORIDE 0.9% 100 ML IV SCH ×3 (01:24→17:17)
[2018-05-19] MEDS: MORPHINE SULFATE 4 MG/ML, 1ML IVPush PRN ×3 (01:25→20:27)
[2018-05-19] MEDS: INSULIN LISPRO 100 UNITS/ML, PEN SQ-INSULIN SCH ×4 (02:55→20:41)
[2018-05-19 05:04] LABS: ALBUMIN 2.4 g/dL (3.4-5.0); ANION GAP 8 mmol/L (5-15); CALCIUM 8.2 mg/dL (8.5-10.1); CHLORIDE 101 mmol/L (98-107)
[2018-05-19 05:09] LABS: ALANINE AMINOTRANSFERASE 30 U/L (12-78); ALKALINE PHOSPHATASE 82 U/L (45-117); BILIRUBIN,TOTAL 0.7 mg/dL (0.2-1.0); CREATININE 0.42 mg/dL (0.55-1.02); MEAN CORPUSCULAR HEMOGLOBIN 26.8 pg (27.0-34.8); MEAN CORPUSCULAR HGB CONC 31.9 g/dL (32.4-35.8); MEAN CORPUSCULAR VOLUME 84.1 fL (80-100); MEAN PLATELET VOLUME 7.3 fL (7.4-10.4); PLATELET COUNT 351 x10^3/uL (130-400); RED BLOOD COUNT 4.72 x10^6/uL (3.82-5.3); RED CELL DISTRIBUTION WIDTH 22.3 % (9.6-15.2)
[2018-05-19] MEDS: HYDROcodone/APAP 10/325 MG TABLET PO PRN ×3 (05:33→18:28)
[2018-05-19] MEDS: SODIUM CHLORIDE 0.9% 1,000 ML IV SCH (05:33)
[2018-05-19] MEDS: METOPROLOL TARTRATE 50 MG TABLET PO SCH ×2 (05:34→17:17)
[2018-05-19 05:42] LABS: BASOPHILS # (AUTO) 0.04 x10^3/uL (0-0.1); BASOPHILS % (AUTO) 0 % (0-1); EOSINOPHILS # (AUTO) 0.09 x10^3/uL (0-0.4); EOSINOPHILS % (AUTO) 1 % (1-7); LYMPHOCYTES # (AUTO) 1.47 x10^3/uL (1-3.4); LYMPHOCYTES % (AUTO) 11 % (22-44); MD SCAN; MONOCYTES # (AUTO) 0.53 x10^3/uL (0.2-0.8); MONOCYTES % (AUTO) 4 % (2-9); NEUTROPHILS # (AUTO) 11.83 x10^3/uL (1.8-6.8); NEUTROPHILS % (AUTO) 85 % (42-75)
[2018-05-19] MEDS: ALBUTEROL/IPRATROPIUM 2.5MG/0.5MG, 3 ML NPPB SCH (06:00)
[2018-05-19] MEDS: BUDESONIDE 0.5 MG/2 ML INHA NPPB SCH ×2 (06:57→21:00)
[2018-05-19 07:52] VITALS: BP 140/88
[2018-05-19] MEDS ORDERED: MAGNESIUM SULFATE 3 GM in SODIUM CHLORIDE 0.9% 100 ML IV ONE (08:30)
[2018-05-19] MEDS: PANTOPRAZOLE 40 MG IV IV SCH (08:52)
[2018-05-19] MEDS: DIGOXIN 0.25 MG TABLET PO SCH (08:53)
[2018-05-19] MEDS: APIXABAN 5 MG TABLET PO SCH ×2 (08:53→20:27)
[2018-05-19] MEDS: SODIUM CHLORIDE FLUSH 10ML SYR IVF SCH ×2 (08:53→20:28)
[2018-05-19 14:39] VITALS: BP 149/94
[2018-05-19 20:00] VITALS: BP 158/96
[2018-05-20] VITALS: BP 139/84
[2018-05-20] MEDS: HYDROcodone/APAP 10/325 MG TABLET PO PRN ×5 (00:14→21:18)
[2018-05-20] MEDS: GUAIFENESIN 100 MG/5 ML, 10ML UDC NG SCH ×8 (01:00→21:18)
[2018-05-20] MEDS: MEROPENEM 500 MG in SODIUM CHLORIDE 0.9% 100 ML IV SCH ×3 (01:47→17:24)
[2018-05-20] MEDS: INSULIN LISPRO 100 UNITS/ML, PEN SQ-INSULIN SCH ×4 (03:00→21:00)
[2018-05-20] MEDS: METOPROLOL TARTRATE 50 MG TABLET PO SCH ×2 (05:41→18:09)
[2018-05-20 06:49] LABS: MEAN CORPUSCULAR HEMOGLOBIN 26.6 pg (27.0-34.8); MEAN CORPUSCULAR HGB CONC 32.2 g/dL (32.4-35.8); MEAN CORPUSCULAR VOLUME 82.6 fL (80-100); MEAN PLATELET VOLUME 7.3 fL (7.4-10.4); PLATELET COUNT 323 x10^3/uL (130-400); RED BLOOD COUNT 4.77 x10^6/uL (3.82-5.3); RED CELL DISTRIBUTION WIDTH 22.4 % (9.6-15.2)
[2018-05-20 07:01] LABS: ALBUMIN 2.4 g/dL (3.4-5.0); ANION GAP 7 mmol/L (5-15); CALCIUM 8.3 mg/dL (8.5-10.1); CHLORIDE 101 mmol/L (98-107); CREATININE 0.43 mg/dL (0.55-1.02)
[2018-05-20] MEDS: BUDESONIDE 0.5 MG/2 ML INHA NPPB SCH (07:15)
[2018-05-20 07:17] LABS: BASOPHILS # (AUTO) 0.04 x10^3/uL (0-0.1); BASOPHILS % (AUTO) 0 % (0-1); EOSINOPHILS # (AUTO) 0.05 x10^3/uL (0-0.4); EOSINOPHILS % (AUTO) 0 % (1-7); LYMPHOCYTES # (AUTO) 1.15 x10^3/uL (1-3.4); LYMPHOCYTES % (AUTO) 10 % (22-44); MD SCAN; MONOCYTES # (AUTO) 0.64 x10^3/uL (0.2-0.8); MONOCYTES % (AUTO) 6 % (2-9); NEUTROPHILS # (AUTO) 9.87 x10^3/uL (1.8-6.8); NEUTROPHILS % (AUTO) 84 % (42-75)
[2018-05-20] MEDS ORDERED: MAGNESIUM SULFATE 1 GM in SODIUM CHLORIDE 0.9% 50 ML IV ONE (07:30)
[2018-05-20 07:51] VITALS: BP 145/92
[2018-05-20] MEDS: PANTOPRAZOLE 40 MG IV IV SCH (08:49)
[2018-05-20] MEDS: APIXABAN 5 MG TABLET PO SCH ×2 (08:50→21:18)
[2018-05-20] MEDS: SODIUM CHLORIDE FLUSH 10ML SYR IVF SCH ×2 (08:50→21:18)
[2018-05-20] MEDS: DIGOXIN 0.25 MG TABLET PO SCH (08:50)
[2018-05-20] MEDS: SODIUM CHLORIDE 0.9% 1,000 ML IV SCH (08:51)
[2018-05-20] MEDS ORDERED: MORPHINE SULFATE 4 MG/ML, 1ML IVPush PRN (10:30)
[2018-05-20 13:07] VITALS: BP 141/89
[2018-05-20] MEDS ORDERED: BUDESONIDE 0.5 MG/2 ML INHA NPPB PRN (18:00)
[2018-05-20 20:00] VITALS: BP 137/83
[2018-05-21] MEDS: GUAIFENESIN 100 MG/5 ML, 10ML UDC NG SCH ×6 (01:00→21:00)
[2018-05-21] MEDS: HYDROcodone/APAP 10/325 MG TABLET PO PRN ×6 (01:31→23:43)
[2018-05-21] MEDS: MEROPENEM 500 MG in SODIUM CHLORIDE 0.9% 100 ML IV SCH ×3 (01:31→19:37)
[2018-05-21 01:33] VITALS: BP 136/80
[2018-05-21] MEDS: INSULIN LISPRO 100 UNITS/ML, PEN SQ-INSULIN SCH ×4 (03:00→23:00)
[2018-05-21] MEDS: ONDANSETRON ODT 4 MG PO PRN (06:04)
[2018-05-21] MEDS: METOPROLOL TARTRATE 50 MG TABLET PO SCH ×2 (06:05→19:37)
[2018-05-21 06:30] LABS: ALBUMIN 2.4 g/dL (3.4-5.0); ANION GAP 11 mmol/L (5-15); CALCIUM 8.4 mg/dL (8.5-10.1); CHLORIDE 102 mmol/L (98-107)
[2018-05-21 07:44] VITALS: BP 151/95
[2018-05-21] MEDS: POLYETHYLENE GLYCOL 17 GM PACKET PO SCH (09:00)
[2018-05-21] MEDS: SODIUM CHLORIDE 0.9% 1,000 ML IV SCH (09:00)
[2018-05-21] MEDS: DIGOXIN 0.25 MG TABLET PO SCH (09:26)
[2018-05-21] MEDS: APIXABAN 5 MG TABLET PO SCH (09:26)
[2018-05-21] MEDS: PANTOPRAZOLE 40 MG IV IV SCH (09:26)
[2018-05-21] MEDS: SODIUM CHLORIDE FLUSH 10ML SYR IVF SCH ×2 (09:28→21:00)
[2018-05-21 13:36] VITALS: BP 128/76
[2018-05-21] MEDS ORDERED: OMNIPAQUE 350 MG/ML, 100ML BOTTLE ONE (17:29)
[2018-05-21 19:49] VITALS: BP 141/78
[2018-05-22] MEDS: SODIUM CHLORIDE 0.9% 1,000 ML IV SCH ×2 (00:05→20:45)
[2018-05-22] MEDS: APIXABAN 5 MG TABLET PO SCH ×3 (00:45→20:46)
[2018-05-22 00:56] VITALS: BP 124/82
[2018-05-22] MEDS: GUAIFENESIN 100 MG/5 ML, 10ML UDC NG SCH ×6 (01:00→20:46)
[2018-05-22] MEDS: MEROPENEM 500 MG in SODIUM CHLORIDE 0.9% 100 ML IV SCH ×3 (02:48→20:45)
[2018-05-22] MEDS: INSULIN LISPRO 100 UNITS/ML, PEN SQ-INSULIN SCH ×4 (05:00→21:00)
[2018-05-22 05:44] VITALS: BP 141/86
[2018-05-22 05:44] LABS: MEAN CORPUSCULAR HEMOGLOBIN 27.6 pg (27.0-34.8); MEAN CORPUSCULAR VOLUME 83.5 fL (80-100); MEAN PLATELET VOLUME 7.8 fL (7.4-10.4); PLATELET COUNT 306 x10^3/uL (130-400); RED BLOOD COUNT 4.43 x10^6/uL (3.82-5.3); RED CELL DISTRIBUTION WIDTH 22.3 % (9.6-15.2)
[2018-05-22] MEDS: METOPROLOL TARTRATE 50 MG TABLET PO SCH ×2 (05:45→20:45)
[2018-05-22] MEDS: HYDROcodone/APAP 10/325 MG TABLET PO PRN ×4 (05:45→20:46)
[2018-05-22 05:50] LABS: ALANINE AMINOTRANSFERASE 27 U/L (12-78); ALBUMIN 2.4 g/dL (3.4-5.0); ANION GAP 11 mmol/L (5-15); CALCIUM 8.2 mg/dL (8.5-10.1); CHLORIDE 102 mmol/L (98-107); CREATININE 0.37 mg/dL (0.55-1.02)
[2018-05-22 05:52] LABS: ALKALINE PHOSPHATASE 70 U/L (45-117); BILIRUBIN,TOTAL 0.5 mg/dL (0.2-1.0); TOTAL PROTEIN 5.7 g/dL (6.4-8.2)
[2018-05-22 06:16] LABS: MD SCAN
[2018-05-22 06:19] LABS: BASOPHILS # (AUTO) 0.03 x10^3/uL (0-0.1); BASOPHILS % (AUTO) 0 % (0-1); EOSINOPHILS # (AUTO) 0.05 x10^3/uL (0-0.4); EOSINOPHILS % (AUTO) 0 % (1-7); LYMPHOCYTES # (AUTO) 1.18 x10^3/uL (1-3.4); LYMPHOCYTES % (AUTO) 10 % (22-44); MONOCYTES # (AUTO) 0.37 x10^3/uL (0.2-0.8); MONOCYTES % (AUTO) 3 % (2-9); NEUTROPHILS # (AUTO) 10.17 x10^3/uL (1.8-6.8); NEUTROPHILS % (AUTO) 86 % (42-75)
[2018-05-22] MEDS: POLYETHYLENE GLYCOL 17 GM PACKET PO SCH (09:00)
[2018-05-22 09:17] VITALS: BP 152/83
[2018-05-22] MEDS ORDERED: MAGNESIUM SULFATE PMX 2GM/50ML 50 ML IV ONE (09:30)
[2018-05-22] MEDS: PANTOPRAZOLE 40 MG IV IV SCH (10:03)
[2018-05-22] MEDS: DIGOXIN 0.25 MG TABLET PO SCH (10:03)
[2018-05-22] MEDS: SODIUM CHLORIDE FLUSH 10ML SYR IVF SCH ×2 (10:04→20:46)
[2018-05-22] MEDS ORDERED: TPN PER PHARMACY MC PRN (11:30)
[2018-05-22 12:50] VITALS: BP 132/80
[2018-05-22] MEDS ORDERED: DEXTROSE 70% IV SCH ×2 (17:00→21:00)
[2018-05-22] MEDS ORDERED: AMINO ACID 10% IV SCH ×2 (17:00→21:00)
[2018-05-22] MEDS ORDERED: [UNRECOGNIZED DRUG - OTHER] IV SCH ×2 (17:00→21:00)
[2018-05-22] MEDS ORDERED: DEXTROSE 10% 500 ML IV PRN (17:00)
[2018-05-22] MEDS ORDERED: SMOF TPN IV SCH ×2 (17:00→21:00)
[2018-05-22] MEDS ORDERED: FAT EMUL IV SCH ×2 (17:00→21:00)
[2018-05-22] MEDS ORDERED: DEXTROSE 50%, 50ML SYRINGE IVPush PRN (17:00)
[2018-05-22 19:50] VITALS: BP 136/83
[2018-05-23 00:05] VITALS: BP 143/84
[2018-05-23] MEDS: GUAIFENESIN 100 MG/5 ML, 10ML UDC NG SCH ×7 (00:28→23:02)
[2018-05-23] MEDS: HYDROcodone/APAP 10/325 MG TABLET PO PRN ×5 (01:05→23:02)
[2018-05-23] MEDS: INSULIN LISPRO 100 UNITS/ML, PEN SQ-INSULIN SCH ×4 (02:58→23:13)
[2018-05-23] MEDS: MEROPENEM 500 MG in SODIUM CHLORIDE 0.9% 100 ML IV SCH ×3 (03:58→23:00)
[2018-05-23] MEDS: METOPROLOL TARTRATE 50 MG TABLET PO SCH ×2 (05:58→17:37)
[2018-05-23 06:00] LABS: ALANINE AMINOTRANSFERASE 22 U/L (12-78); ALBUMIN 2.1 g/dL (3.4-5.0); ANION GAP 6 mmol/L (5-15); CALCIUM 7.6 mg/dL (8.5-10.1); CHLORIDE 105 mmol/L (98-107)
[2018-05-23 06:07] LABS: ALKALINE PHOSPHATASE 66 U/L (45-117); BILIRUBIN,TOTAL 0.5 mg/dL (0.2-1.0); CREATININE 0.51 mg/dL (0.55-1.02); PREALBUMIN 8.5 mg/dL (20.0-40.0); TOTAL PROTEIN 5.1 g/dL (6.4-8.2); TRIGLYCERIDES 167 mg/dL (50-200)
[2018-05-23] MEDS ORDERED: MAGNESIUM SULFATE PMX 2GM/50ML 50 ML IV ONE (08:00)
[2018-05-23 09:11] VITALS: BP 120/77
[2018-05-23] MEDS: PANTOPRAZOLE 40 MG IV IV SCH (09:59)
[2018-05-23] MEDS: APIXABAN 5 MG TABLET PO SCH ×2 (10:00→23:02)
[2018-05-23] MEDS: DIGOXIN 0.25 MG TABLET PO SCH (10:00)
[2018-05-23] MEDS: POLYETHYLENE GLYCOL 17 GM PACKET PO SCH (10:00)
[2018-05-23] MEDS: SODIUM CHLORIDE FLUSH 10ML SYR IVF SCH ×2 (10:00→23:13)
[2018-05-23] MEDS: SODIUM CHLORIDE 0.9% 1,000 ML IV SCH (10:11)
[2018-05-23 15:42] VITALS: BP 125/86
[2018-05-23] MEDS ORDERED: FAT EMUL IV SCH (17:00)
[2018-05-23] MEDS ORDERED: DEXTROSE 70% IV SCH (17:00)
[2018-05-23] MEDS ORDERED: [UNRECOGNIZED DRUG - OTHER] IV SCH (17:00)
[2018-05-23] MEDS ORDERED: SMOF TPN IV SCH (17:00)
[2018-05-23] MEDS ORDERED: AMINO ACID 10% IV SCH (17:00)
[2018-05-23] MEDS: FILTER, DISP 1.2 MICRON FOR TPN/PVN IV PRN (17:48)
[2018-05-23 19:01] VITALS: BP 136/69
[2018-05-24 00:04] VITALS: BP 121/76
[2018-05-24] MEDS: GUAIFENESIN 100 MG/5 ML, 10ML UDC NG SCH ×6 (01:00→22:55)
[2018-05-24] MEDS: INSULIN LISPRO 100 UNITS/ML, PEN SQ-INSULIN SCH ×4 (03:51→22:54)
[2018-05-24] MEDS: HYDROcodone/APAP 10/325 MG TABLET PO PRN ×5 (03:51→21:55)
[2018-05-24 04:43] LABS: ANION GAP 7 mmol/L (5-15); CALCIUM 7.8 mg/dL (8.5-10.1); CHLORIDE 103 mmol/L (98-107); CREATININE 0.32 mg/dL (0.55-1.02)
[2018-05-24] MEDS: METOPROLOL TARTRATE 50 MG TABLET PO SCH ×2 (06:10→18:06)
[2018-05-24] MEDS: MEROPENEM 500 MG in SODIUM CHLORIDE 0.9% 100 ML IV SCH ×3 (06:10→22:06)
[2018-05-24 06:16] VITALS: BP 134/83
[2018-05-24 06:49] VITALS: BP 120/45
[2018-05-24] MEDS: POLYETHYLENE GLYCOL 17 GM PACKET PO SCH (08:01)
[2018-05-24] MEDS: SODIUM CHLORIDE FLUSH 10ML SYR IVF SCH ×2 (09:00→21:00)
[2018-05-24] MEDS: APIXABAN 5 MG TABLET PO SCH ×2 (09:05→21:55)
[2018-05-24] MEDS: PANTOPRAZOLE 40 MG IV IV SCH (09:05)
[2018-05-24] MEDS: DIGOXIN 0.25 MG TABLET PO SCH (09:05)
[2018-05-24 13:50] LABS: ALANINE AMINOTRANSFERASE 16 U/L (12-78); ALBUMIN 2.1 g/dL (3.4-5.0); ANION GAP 6 mmol/L (5-15); CALCIUM 7.8 mg/dL (8.5-10.1); CHLORIDE 103 mmol/L (98-107); CREATININE 0.32 mg/dL (0.55-1.02)
[2018-05-24 13:52] LABS: ALKALINE PHOSPHATASE 73 U/L (45-117); BILIRUBIN,TOTAL 0.3 mg/dL (0.2-1.0); TOTAL PROTEIN 5.3 g/dL (6.4-8.2)
[2018-05-24 14:19] VITALS: BP 119/86
[2018-05-24] MEDS ORDERED: FAT EMUL IV SCH (17:00)
[2018-05-24] MEDS ORDERED: AMINO ACID 10% IV SCH (17:00)
[2018-05-24] MEDS ORDERED: SMOF TPN IV SCH (17:00)
[2018-05-24] MEDS ORDERED: [UNRECOGNIZED DRUG - OTHER] IV SCH (17:00)
[2018-05-24] MEDS ORDERED: DEXTROSE 70% IV SCH (17:00)
[2018-05-24] MEDS: FILTER, DISP 1.2 MICRON FOR TPN/PVN IV PRN (18:07)
[2018-05-24 19:14] VITALS: BP 127/84
[2018-05-25] MEDS: GUAIFENESIN 100 MG/5 ML, 10ML UDC NG SCH ×6 (01:00→20:11)
[2018-05-25 02:46] VITALS: BP 141/82
[2018-05-25] MEDS: HYDROcodone/APAP 10/325 MG TABLET PO PRN ×5 (03:19→20:36)
[2018-05-25] MEDS: INSULIN LISPRO 100 UNITS/ML, PEN SQ-INSULIN SCH ×4 (03:30→20:11)
[2018-05-25] MEDS: MEROPENEM 500 MG in SODIUM CHLORIDE 0.9% 100 ML IV SCH ×3 (06:39→23:06)
[2018-05-25] MEDS: METOPROLOL TARTRATE 50 MG TABLET PO SCH ×2 (06:39→18:01)
[2018-05-25] MEDS: POLYETHYLENE GLYCOL 17 GM PACKET PO SCH (07:49)
[2018-05-25 08:23] LABS: ALBUMIN 2.3 g/dL (3.4-5.0); ANION GAP 5 mmol/L (5-15); CALCIUM 8.3 mg/dL (8.5-10.1); CHLORIDE 102 mmol/L (98-107)
[2018-05-25 08:27] LABS: ALANINE AMINOTRANSFERASE 22 U/L (12-78); ALKALINE PHOSPHATASE 81 U/L (45-117); BILIRUBIN,TOTAL 0.5 mg/dL (0.2-1.0); TOTAL PROTEIN 5.6 g/dL (6.4-8.2)
[2018-05-25 08:37] VITALS: BP 138/83
[2018-05-25] MEDS: APIXABAN 5 MG TABLET PO SCH ×2 (11:20→20:11)
[2018-05-25] MEDS: PANTOPRAZOLE 40 MG IV IV SCH (11:20)
[2018-05-25] MEDS: DIGOXIN 0.25 MG TABLET PO SCH (11:21)
[2018-05-25] MEDS: SODIUM CHLORIDE FLUSH 10ML SYR IVF SCH ×2 (11:21→20:11)
[2018-05-25 15:04] VITALS: BP 139/84
[2018-05-25] MEDS ORDERED: AMINO ACID 10% IV SCH (17:00)
[2018-05-25] MEDS ORDERED: [UNRECOGNIZED DRUG - OTHER] IV SCH (17:00)
[2018-05-25] MEDS ORDERED: FAT EMUL IV SCH (17:00)
[2018-05-25] MEDS ORDERED: SMOF TPN IV SCH (17:00)
[2018-05-25] MEDS ORDERED: DEXTROSE 70% IV SCH (17:00)
[2018-05-25 20:35] VITALS: BP 122/89
[2018-05-26] MEDS: GUAIFENESIN 100 MG/5 ML, 10ML UDC NG SCH ×7 (01:00→21:00)
[2018-05-26 01:40] VITALS: BP 147/84
[2018-05-26] MEDS: HYDROcodone/APAP 10/325 MG TABLET PO PRN ×4 (02:44→21:30)
[2018-05-26] MEDS: INSULIN LISPRO 100 UNITS/ML, PEN SQ-INSULIN SCH ×4 (02:44→21:49)
[2018-05-26 05:53] LABS: ALBUMIN 2.3 g/dL (3.4-5.0); ANION GAP 6 mmol/L (5-15); CALCIUM 8.2 mg/dL (8.5-10.1); CHLORIDE 100 mmol/L (98-107)
[2018-05-26 05:57] LABS: ALANINE AMINOTRANSFERASE 21 U/L (12-78); ALKALINE PHOSPHATASE 85 U/L (45-117); BILIRUBIN,TOTAL 0.4 mg/dL (0.2-1.0); CREATININE 0.42 mg/dL (0.55-1.02); TOTAL PROTEIN 5.7 g/dL (6.4-8.2)
[2018-05-26 06:02] LABS: MEAN CORPUSCULAR HEMOGLOBIN 26.7 pg (27.0-34.8); MEAN CORPUSCULAR VOLUME 83.6 fL (80-100); MEAN PLATELET VOLUME 8.4 fL (7.4-10.4); PLATELET COUNT 346 x10^3/uL (130-400); RED BLOOD COUNT 4.45 x10^6/uL (3.82-5.3)
[2018-05-26] MEDS: METOPROLOL TARTRATE 50 MG TABLET PO SCH ×2 (06:39→16:13)
[2018-05-26 06:59] LABS: MD YES
[2018-05-26 07:02] LABS: BAND#(MANUAL) 0.24 x10^3/uL; BANDS%(MANUAL) 3 % (0-7); EOS% (MANUAL) 5 % (1-7); LYMPHS% (MANUAL) 24 % (22-44); METAMYELOCYTES# (MANUAL) 0.08 x10^3/uL (0-0); METAMYELOCYTES% (MANUAL) 1 % (0-1); MONOS% (MANUAL) 5 % (2-9); SEGS% (MANUAL) 62 % (42-75)
[2018-05-26 07:04] LABS: ANISOCYTOSIS 1+; POLYCHROMASIA 1+
[2018-05-26 07:05] LABS: <PLATELET ESTIMATE> ADEQUATE; <PLT MORPHOLOGY> NORMAL PLT MORPH
[2018-05-26 07:50] VITALS: BP 146/86
[2018-05-26] MEDS: PANTOPRAZOLE 40 MG IV IV SCH (07:58)
[2018-05-26] MEDS: APIXABAN 5 MG TABLET PO SCH ×2 (07:58→21:30)
[2018-05-26] MEDS: DIGOXIN 0.25 MG TABLET PO SCH (07:58)
[2018-05-26] MEDS: POLYETHYLENE GLYCOL 17 GM PACKET PO SCH (07:58)
[2018-05-26] MEDS: MEROPENEM 500 MG in SODIUM CHLORIDE 0.9% 100 ML IV SCH ×2 (07:58→15:10)
[2018-05-26] MEDS: SODIUM CHLORIDE FLUSH 10ML SYR IVF SCH ×2 (07:58→21:30)
[2018-05-26] MEDS ORDERED: OMNIPAQUE 350 MG/ML, 100ML BOTTLE ONE (10:25)
[2018-05-26 15:19] VITALS: BP 139/93
[2018-05-26] MEDS: FILTER, DISP 1.2 MICRON FOR TPN/PVN IV PRN (16:13)
[2018-05-26] MEDS ORDERED: [UNRECOGNIZED DRUG - OTHER] IV SCH (17:00)
[2018-05-26] MEDS ORDERED: SMOF TPN IV SCH (17:00)
[2018-05-26] MEDS ORDERED: AMINO ACID 10% IV SCH (17:00)
[2018-05-26] MEDS ORDERED: DEXTROSE 70% IV SCH (17:00)
[2018-05-26] MEDS ORDERED: FAT EMUL IV SCH (17:00)
[2018-05-26 19:26] VITALS: BP 125/84
[2018-05-27] MEDS: GUAIFENESIN 100 MG/5 ML, 10ML UDC NG SCH ×6 (00:07→20:54)
[2018-05-27 01:10] VITALS: BP 126/86
[2018-05-27] MEDS: INSULIN LISPRO 100 UNITS/ML, PEN SQ-INSULIN SCH ×4 (03:53→20:51)
[2018-05-27] MEDS: HYDROcodone/APAP 10/325 MG TABLET PO PRN ×4 (03:56→20:50)
[2018-05-27 04:22] LABS: MEAN CORPUSCULAR HEMOGLOBIN 27.4 pg (27.0-34.8); MEAN CORPUSCULAR VOLUME 83.1 fL (80-100); MEAN PLATELET VOLUME 7.9 fL (7.4-10.4); PLATELET COUNT 365 x10^3/uL (130-400); RED BLOOD COUNT 4.46 x10^6/uL (3.82-5.3)
[2018-05-27 04:30] LABS: ALANINE AMINOTRANSFERASE 22 U/L (12-78); ALBUMIN 2.3 g/dL (3.4-5.0); ANION GAP 7 mmol/L (5-15); CALCIUM 8.2 mg/dL (8.5-10.1); CHLORIDE 100 mmol/L (98-107); CREATININE 0.44 mg/dL (0.55-1.02)
[2018-05-27 04:32] LABS: ALKALINE PHOSPHATASE 87 U/L (45-117); BILIRUBIN,TOTAL 0.3 mg/dL (0.2-1.0); TOTAL PROTEIN 5.9 g/dL (6.4-8.2)
[2018-05-27 04:38] LABS: BASOPHILS # (AUTO) 0.07 x10^3/uL (0-0.1); BASOPHILS % (AUTO) 1 % (0-1); EOSINOPHILS # (AUTO) 0.35 x10^3/uL (0-0.4); EOSINOPHILS % (AUTO) 4 % (1-7); LYMPHOCYTES # (AUTO) 1.77 x10^3/uL (1-3.4); LYMPHOCYTES % (AUTO) 22 % (22-44); MD SCAN; MONOCYTES # (AUTO) 0.67 x10^3/uL (0.2-0.8); MONOCYTES % (AUTO) 9 % (2-9); NEUTROPHILS # (AUTO) 5.07 x10^3/uL (1.8-6.8); NEUTROPHILS % (AUTO) 64 % (42-75)
[2018-05-27] MEDS: METOPROLOL TARTRATE 50 MG TABLET PO SCH ×2 (06:33→17:17)
[2018-05-27 08:52] VITALS: BP 139/91
[2018-05-27] MEDS: DIGOXIN 0.25 MG TABLET PO SCH (08:56)
[2018-05-27] MEDS: SODIUM CHLORIDE FLUSH 10ML SYR IVF SCH ×2 (08:56→20:51)
[2018-05-27] MEDS: PANTOPRAZOLE 40 MG IV IV SCH (08:56)
[2018-05-27] MEDS: POLYETHYLENE GLYCOL 17 GM PACKET PO SCH (08:56)
[2018-05-27] MEDS: APIXABAN 5 MG TABLET PO SCH ×2 (08:56→20:50)
[2018-05-27 14:43] VITALS: BP 136/80
[2018-05-27] MEDS ORDERED: FAT EMUL IV SCH (17:00)
[2018-05-27] MEDS ORDERED: [UNRECOGNIZED DRUG - OTHER] IV SCH (17:00)
[2018-05-27] MEDS ORDERED: AMINO ACID 10% IV SCH (17:00)
[2018-05-27] MEDS ORDERED: DEXTROSE 70% IV SCH (17:00)
[2018-05-27] MEDS ORDERED: SMOF TPN IV SCH (17:00)
[2018-05-27] MEDS: FILTER, DISP 1.2 MICRON FOR TPN/PVN IV PRN (17:17)
[2018-05-27 20:07] VITALS: BP 130/83
[2018-05-27] MEDS: ACETAMINOPHEN 325 MG TABLET PO PRN (22:34)
[2018-05-28] MEDS: HYDROcodone/APAP 10/325 MG TABLET PO PRN ×5 (00:56→20:58)
[2018-05-28] MEDS: GUAIFENESIN 100 MG/5 ML, 10ML UDC NG SCH ×7 (00:58→21:00)
[2018-05-28 00:59] VITALS: BP 104/75
[2018-05-28] MEDS: INSULIN LISPRO 100 UNITS/ML, PEN SQ-INSULIN SCH ×4 (02:42→20:58)
[2018-05-28] MEDS: METOPROLOL TARTRATE 50 MG TABLET PO SCH ×2 (05:07→17:11)
[2018-05-28 07:12] LABS: ANION GAP 8 mmol/L (5-15); CALCIUM 8.2 mg/dL (8.5-10.1); CHLORIDE 101 mmol/L (98-107); CREATININE 0.44 mg/dL (0.55-1.02)
[2018-05-28 07:18] VITALS: BP 110/79
[2018-05-28] MEDS: PANTOPRAZOLE 40 MG IV IV SCH (08:34)
[2018-05-28] MEDS: DIGOXIN 0.25 MG TABLET PO SCH (08:35)
[2018-05-28] MEDS: SODIUM CHLORIDE FLUSH 10ML SYR IVF SCH ×2 (08:35→20:59)
[2018-05-28] MEDS: APIXABAN 5 MG TABLET PO SCH ×2 (08:35→20:58)
[2018-05-28] MEDS: POLYETHYLENE GLYCOL 17 GM PACKET PO SCH (08:42)
[2018-05-28] MEDS ORDERED: AMINO ACID 10% IV SCH ×2 (09:30→17:00)
[2018-05-28] MEDS ORDERED: FAT EMUL IV SCH ×2 (09:30→17:00)
[2018-05-28] MEDS ORDERED: DEXTROSE 70% IV SCH ×2 (09:30→17:00)
[2018-05-28] MEDS ORDERED: [UNRECOGNIZED DRUG - OTHER] IV SCH ×2 (09:30→17:00)
[2018-05-28] MEDS ORDERED: SMOF TPN IV SCH ×2 (09:30→17:00)
[2018-05-28 11:36] LABS: BASOPHILS # (AUTO) 0.03 x10^3/uL (0-0.1); BASOPHILS % (AUTO) 0 % (0-1); EOSINOPHILS % (AUTO) 6 % (1-7); LYMPHOCYTES # (AUTO) 1.76 x10^3/uL (1-3.4); LYMPHOCYTES % (AUTO) 20 % (22-44); MD NO; MEAN CORPUSCULAR HEMOGLOBIN 27.1 pg (27.0-34.8); MEAN CORPUSCULAR HGB CONC 32.4 g/dL (32.4-35.8); MEAN CORPUSCULAR VOLUME 83.5 fL (80-100); MEAN PLATELET VOLUME 7.7 fL (7.4-10.4); MONOCYTES # (AUTO) 0.84 x10^3/uL (0.2-0.8); MONOCYTES % (AUTO) 10 % (2-9); NEUTROPHILS # (AUTO) 5.72 x10^3/uL (1.8-6.8); NEUTROPHILS % (AUTO) 65 % (42-75); PLATELET COUNT 348 x10^3/uL (130-400); RED BLOOD COUNT 4.29 x10^6/uL (3.82-5.3); RED CELL DISTRIBUTION WIDTH 22.4 % (9.6-15.2)
[2018-05-28 12:00] LABS: ALKALINE PHOSPHATASE 89 U/L (45-117); BILIRUBIN,TOTAL 0.3 mg/dL (0.2-1.0); TOTAL PROTEIN 5.8 g/dL (6.4-8.2)
[2018-05-28 12:07] LABS: ANION GAP 9 mmol/L (5-15); CHLORIDE 103 mmol/L (98-107)
[2018-05-28 12:22] LABS: ALANINE AMINOTRANSFERASE 20 U/L (12-78); ALBUMIN 2.2 g/dL (3.4-5.0); CALCIUM 8.4 mg/dL (8.5-10.1); CREATININE 0.39 mg/dL (0.55-1.02)
[2018-05-28 12:49] VITALS: BP 112/74
[2018-05-28] MEDS: FILTER, DISP 1.2 MICRON FOR TPN/PVN IV PRN (17:10)
[2018-05-28 19:31] VITALS: BP 102/70
[2018-05-29 00:51] VITALS: BP 110/75
[2018-05-29] MEDS: GUAIFENESIN 100 MG/5 ML, 10ML UDC NG SCH ×6 (01:03→21:15)
[2018-05-29] MEDS: INSULIN LISPRO 100 UNITS/ML, PEN SQ-INSULIN SCH ×4 (03:13→21:16)
[2018-05-29 03:51] LABS: MEAN CORPUSCULAR HEMOGLOBIN 27.8 pg (27.0-34.8); MEAN CORPUSCULAR HGB CONC 33.6 g/dL (32.4-35.8); MEAN CORPUSCULAR VOLUME 82.8 fL (80-100); MEAN PLATELET VOLUME 8.1 fL (7.4-10.4); PLATELET COUNT 311 x10^3/uL (130-400); RED BLOOD COUNT 3.98 x10^6/uL (3.82-5.3); RED CELL DISTRIBUTION WIDTH 22.8 % (9.6-15.2)
[2018-05-29 04:19] LABS: BASOPHILS # (AUTO) 0.04 x10^3/uL (0-0.1); BASOPHILS % (AUTO) 1 % (0-1); EOSINOPHILS # (AUTO) 0.58 x10^3/uL (0-0.4); EOSINOPHILS % (AUTO) 8 % (1-7); LYMPHOCYTES % (AUTO) 27 % (22-44); MD SCAN; MONOCYTES # (AUTO) 0.68 x10^3/uL (0.2-0.8); MONOCYTES % (AUTO) 10 % (2-9); NEUTROPHILS # (AUTO) 3.89 x10^3/uL (1.8-6.8); NEUTROPHILS % (AUTO) 55 % (42-75)
[2018-05-29] MEDS: METOPROLOL TARTRATE 50 MG TABLET PO SCH ×2 (05:14→18:13)
[2018-05-29] MEDS: HYDROcodone/APAP 10/325 MG TABLET PO PRN ×3 (05:14→18:13)
[2018-05-29 07:20] VITALS: BP 114/78
[2018-05-29] MEDS: POLYETHYLENE GLYCOL 17 GM PACKET PO SCH (08:31)
[2018-05-29] MEDS: SODIUM CHLORIDE FLUSH 10ML SYR IVF SCH ×2 (08:31→21:16)
[2018-05-29] MEDS: DIGOXIN 0.25 MG TABLET PO SCH (08:31)
[2018-05-29] MEDS: APIXABAN 5 MG TABLET PO SCH ×2 (08:31→21:15)
[2018-05-29] MEDS: PANTOPRAZOLE 40 MG IV IV SCH (08:31)
[2018-05-29 10:17] LABS: ALANINE AMINOTRANSFERASE 17 U/L (12-78); ALBUMIN 2.1 g/dL (3.4-5.0); ANION GAP 7 mmol/L (5-15); CALCIUM 8.3 mg/dL (8.5-10.1); CHLORIDE 104 mmol/L (98-107); CREATININE 0.41 mg/dL (0.55-1.02)
[2018-05-29 10:20] LABS: ALKALINE PHOSPHATASE 84 U/L (45-117); BILIRUBIN,TOTAL 0.3 mg/dL (0.2-1.0); TOTAL PROTEIN 5.6 g/dL (6.4-8.2)
[2018-05-29] MEDS: ONDANSETRON ODT 4 MG PO PRN (13:15)
[2018-05-29 14:16] VITALS: BP 118/76
[2018-05-29] MEDS ORDERED: [UNRECOGNIZED DRUG - OTHER] IV SCH (17:00)
[2018-05-29] MEDS ORDERED: SMOF TPN IV SCH (17:00)
[2018-05-29] MEDS ORDERED: FAT EMUL IV SCH (17:00)
[2018-05-29] MEDS ORDERED: AMINO ACID 10% IV SCH (17:00)
[2018-05-29] MEDS ORDERED: DEXTROSE 70% IV SCH (17:00)
[2018-05-29 19:52] VITALS: BP 128/86
[2018-05-30 00:04] VITALS: BP 118/76
[2018-05-30] MEDS: GUAIFENESIN 100 MG/5 ML, 10ML UDC NG SCH ×5 (00:25→16:36)
[2018-05-30] MEDS: HYDROcodone/APAP 10/325 MG TABLET PO PRN ×4 (02:10→21:09)
[2018-05-30] MEDS: INSULIN LISPRO 100 UNITS/ML, PEN SQ-INSULIN SCH ×4 (02:24→21:08)
[2018-05-30 05:10] VITALS: BP 114/77
[2018-05-30] MEDS: METOPROLOL TARTRATE 50 MG TABLET PO SCH ×2 (05:11→18:25)
[2018-05-30 06:45] LABS: ANION GAP 6 mmol/L (5-15); CALCIUM 8.1 mg/dL (8.5-10.1); CHLORIDE 104 mmol/L (98-107); CREATININE 0.42 mg/dL (0.55-1.02)
[2018-05-30 07:00] VITALS: BP 116/74
[2018-05-30] MEDS: POLYETHYLENE GLYCOL 17 GM PACKET PO SCH (09:00)
[2018-05-30] MEDS: APIXABAN 5 MG TABLET PO SCH ×2 (09:18→21:08)
[2018-05-30] MEDS: SODIUM CHLORIDE FLUSH 10ML SYR IVF SCH ×2 (09:19→21:08)
[2018-05-30] MEDS: DIGOXIN 0.25 MG TABLET PO SCH (09:19)
[2018-05-30] MEDS: PANTOPRAZOLE 40 MG IV IV SCH (09:19)
[2018-05-30] MEDS: ONDANSETRON ODT 4 MG PO PRN (11:41)
[2018-05-30 13:51] VITALS: BP 114/76
[2018-05-30] MEDS ORDERED: CATHFLO-ALTEPLASE 2 MG/2 ML CATHFLUSH ONE ×2 (16:30→17:00)
[2018-05-30] MEDS ORDERED: [UNRECOGNIZED DRUG - OTHER] IV SCH (17:00)
[2018-05-30] MEDS ORDERED: SMOF TPN IV SCH (17:00)
[2018-05-30] MEDS ORDERED: FAT EMUL IV SCH (17:00)
[2018-05-30] MEDS ORDERED: AMINO ACID 10% IV SCH (17:00)
[2018-05-30] MEDS ORDERED: DEXTROSE 70% IV SCH (17:00)
[2018-05-30 18:53] VITALS: BP 119/78
[2018-05-30] MEDS: GUAIFENESIN 100 MG/5 ML, 10ML UDC PO SCH ×2 (19:54→23:31)
[2018-05-30] MEDS: FILTER, DISP 1.2 MICRON FOR TPN/PVN IV PRN (21:11)
[2018-05-31 03:15] VITALS: BP 130/86
[2018-05-31] MEDS: HYDROcodone/APAP 10/325 MG TABLET PO PRN ×4 (03:42→23:02)
[2018-05-31] MEDS: INSULIN LISPRO 100 UNITS/ML, PEN SQ-INSULIN SCH ×5 (03:42→20:32)
[2018-05-31] MEDS: GUAIFENESIN 100 MG/5 ML, 10ML UDC PO SCH ×2 (03:44→07:54)
[2018-05-31 04:55] LABS: ANION GAP 6 mmol/L (5-15); CALCIUM 8.2 mg/dL (8.5-10.1); CHLORIDE 103 mmol/L (98-107); CREATININE 0.46 mg/dL (0.55-1.02)
[2018-05-31 05:55] VITALS: BP 112/66
[2018-05-31] MEDS: METOPROLOL TARTRATE 50 MG TABLET PO SCH ×2 (05:56→17:17)
[2018-05-31 07:25] VITALS: BP 101/70
[2018-05-31] MEDS: APIXABAN 5 MG TABLET PO SCH ×2 (08:14→20:33)
[2018-05-31] MEDS: PANTOPRAZOLE 40 MG IV IV SCH (08:14)
[2018-05-31] MEDS: MAGNESIUM OXIDE 400 MG TABLET PO SCH ×2 (08:14→20:33)
[2018-05-31] MEDS: DIGOXIN 0.25 MG TABLET PO SCH (08:14)
[2018-05-31] MEDS: SODIUM CHLORIDE FLUSH 10ML SYR IVF SCH ×2 (08:15→20:33)
[2018-05-31] MEDS: POLYETHYLENE GLYCOL 17 GM PACKET PO SCH (08:15)
[2018-05-31] MEDS ORDERED: INSULIN LISPRO 100 UNITS/ML, PEN SQ-INSULIN SCH (11:00)
[2018-05-31 14:39] VITALS: BP 109/75
[2018-05-31 19:45] VITALS: BP 119/81
[2018-06-01 00:41] VITALS: BP 114/77
[2018-06-01] MEDS: METOPROLOL TARTRATE 50 MG TABLET PO SCH ×2 (05:45→17:13)
[2018-06-01] MEDS: PANTOPROZOLE 40MG TABLET PO SCH (05:46)
[2018-06-01 07:00] VITALS: BP 117/82
[2018-06-01] MEDS: INSULIN LISPRO 100 UNITS/ML, PEN SQ-INSULIN SCH ×4 (07:00→20:24)
[2018-06-01] MEDS: MAGNESIUM OXIDE 400 MG TABLET PO SCH ×2 (08:02→21:25)
[2018-06-01] MEDS: DIGOXIN 0.25 MG TABLET PO SCH (08:02)
[2018-06-01] MEDS: HYDROcodone/APAP 10/325 MG TABLET PO PRN ×3 (08:02→21:25)
[2018-06-01] MEDS: APIXABAN 5 MG TABLET PO SCH ×2 (08:02→21:25)
[2018-06-01] MEDS: SODIUM CHLORIDE FLUSH 10ML SYR IVF SCH ×2 (08:02→21:24)
[2018-06-01] MEDS: POLYETHYLENE GLYCOL 17 GM PACKET PO SCH (08:04)
[2018-06-01 13:50] VITALS: BP 115/78
[2018-06-01 20:19] VITALS: BP 108/77
[2018-06-01] MEDS: ONDANSETRON ODT 4 MG PO PRN (23:00)
[2018-06-01] MEDS: ACETAMINOPHEN 325 MG TABLET PO PRN (23:21)
[2018-06-02 00:52] VITALS: BP 100/62
[2018-06-02 05:05] VITALS: BP 124/81
[2018-06-02] MEDS: METOPROLOL TARTRATE 50 MG TABLET PO SCH (05:20)
[2018-06-02] MEDS: PANTOPROZOLE 40MG TABLET PO SCH (05:20)
[2018-06-02] MEDS: HYDROcodone/APAP 10/325 MG TABLET PO PRN (05:21)
[2018-06-02] MEDS: ONDANSETRON ODT 4 MG PO PRN ×2 (06:04→08:30)
[2018-06-02 06:45] VITALS: BP 99/65
[2018-06-02] MEDS ORDERED: IPRA4AER INH (08:14)
[2018-06-02] MEDS ORDERED: APIX5TAB PO (08:27)
[2018-06-02] MEDS: MAGNESIUM OXIDE 400 MG TABLET PO SCH (08:31)
[2018-06-02] MEDS: APIXABAN 5 MG TABLET PO SCH (08:31)
[2018-06-02] MEDS: POLYETHYLENE GLYCOL 17 GM PACKET PO SCH (08:31)
[2018-06-02] MEDS: DIGOXIN 0.25 MG TABLET PO SCH (08:31)
[2018-06-02] MEDS: SODIUM CHLORIDE FLUSH 10ML SYR IVF SCH (08:32)
[2018-06-02] MEDS: INSULIN LISPRO 100 UNITS/ML, PEN SQ-INSULIN SCH (08:33)
== END 2018-06-02 12:45 | disposition home or self-care (01) | DRG 981 ==
LOC: ED 02:37 → EDIP 03:48 → 5SO 10:23 → CCU 05-12 20:00 → 5SO 05-15 18:48 → 4EST 05-27 18:40
PROVIDERS: ADMIT Family Medicine; ATTEND Family Medicine
PROC: 4B02XSZ Measurement of Cardiac Pacemaker, External Approach (ICD-10-PCS; 2018-05-08)
PROC: 0DTN4ZZ Resection of Sigmoid Colon, Percutaneous Endoscopic Approach (ICD-10-PCS; 2018-05-12)
PROC: 0DNU4ZZ Release Omentum, Percutaneous Endoscopic Approach (ICD-10-PCS; 2018-05-12)
PROC: 0D1M4Z4 Bypass Descending Colon to Cutaneous, Percutaneous Endoscopic Approach (ICD-10-PCS; 2018-05-12)
PROC: 5A1945Z Respiratory Ventilation, 24-96 Consecutive Hours (ICD-10-PCS; 2018-05-12)
PROC: 0BH17EZ Insertion of Endotracheal Airway into Trachea, Via Natural or Artificial Opening (ICD-10-PCS; 2018-05-12)
PROC: 03HY32Z Insertion of Monitoring Device into Upper Artery, Percutaneous Approach (ICD-10-PCS; 2018-05-12)
PROC: 0T9B70Z Drainage of Bladder with Drainage Device, Via Natural or Artificial Opening (ICD-10-PCS; 2018-05-13)
PROC: 02HV33Z Insertion of Infusion Device into Superior Vena Cava, Percutaneous Approach (ICD-10-PCS; principal; 2018-05-22)
PROC: B5181ZA Fluoroscopy of Superior Vena Cava using Low Osmolar Contrast, Guidance (ICD-10-PCS; 2018-05-22)
PROC: B548ZZA Ultrasonography of Superior Vena Cava, Guidance (ICD-10-PCS; 2018-05-22)
DX: I11.0 Hypertensive heart disease with heart failure (principal); J96.21 Acute and chronic respiratory failure with hypoxia; K65.9 Peritonitis, unspecified; K26.5 Chronic or unspecified duodenal ulcer with perforation; D68.69 Other thrombophilia; I48.1 Persistent atrial fibrillation; J44.1 Chronic obstructive pulmonary disease with (acute) exacerbation; J98.11 Atelectasis; K56.600 Partial intestinal obstruction, unspecified as to cause; K57.20 Diverticulitis of large intestine with perforation and abscess without bleeding; N28.0 Ischemia and infarction of kidney; I50.43 Acute on chronic combined systolic (congestive) and diastolic (congestive) heart failure; E11.65 Type 2 diabetes mellitus with hyperglycemia; E66.01 Morbid (severe) obesity due to excess calories; E78.5 Hyperlipidemia, unspecified; E83.42 Hypomagnesemia; E83.51 Hypocalcemia; F10.10 Alcohol abuse, uncomplicated; K43.9 Ventral hernia without obstruction or gangrene; F15.10 Other stimulant abuse, uncomplicated; F17.200 Nicotine dependence, unspecified, uncomplicated; I27.20 Pulmonary hypertension, unspecified; I35.8 Other nonrheumatic aortic valve disorders; K21.9 Gastro-esophageal reflux disease without esophagitis; N14.1 Nephropathy induced by other drugs, medicaments and biological substances; T50.8X5A Adverse effect of diagnostic agents, initial encounter; Y92.89 Other specified places as the place of occurrence of the external cause; Z59.0 Homelessness; Z63.8 Other specified problems related to primary support group; Z79.01 Long term (current) use of anticoagulants; Z79.4 Long term (current) use of insulin; Z79.899 Other long term (current) drug therapy; Z86.14 Personal history of Methicillin resistant Staphylococcus aureus infection; Z87.01 Personal history of pneumonia (recurrent); Z90.49 Acquired absence of other specified parts of digestive tract; Z90.710 Acquired absence of both cervix and uterus; Z91.14 Patient's other noncompliance with medication regimen; Z95.0 Presence of cardiac pacemaker
CPT/HCPCS: 36415; 36600; 74018; 87400; 99285; J3475; J7613; J7620; J7626; 36573; 70492; 71045; 74177; 80048; 80053; 80162; 81001; 82040; 82310; 82330; 82803; 82947; 82962; 83036; 83605; 83735; 84100; 84134; 84478; 84484; 85025; 85520; 87040; 87070; 87081; 87086; 87205; 88307; 93005; 93308; 93321; 93325; 94002; 94003; 94150; 94640; 96365; 96375; G0378; J0610; J1644; J1650; J1815; J1940; J2020; J2185; J2250; J2704; J2997; J3010; J3480; Q0162; Q9967; C1751; C9113; J0330; J1720; J2270; J2370; J2920; J3420; J7030; J7040; J7050; J7510

== ENCOUNTER 2018-06-04 22:58 | Emergency (ER) | payer MEDICAID ==
[~2018-06-04] VITALS: Ht 170.2 cm; Wt 103.0 kg
[~2018-06-04 22:58] MED LIST changes: +APIX5TAB PO
--- NOTE | 2018-06-04 23:06 | NUR ---
LEÓN. REPORT FROM EMS. PT STATES "MY COLOSTOMY BAG IS NOT WORKING." PT C/O ALL QUADRANTS ABD PAIN WELL. PT'S AOX4. RESPS EVEN AND UNLABORED. SKIN INTACT AND PWD AROUND COLOSTOMY BAG. BP/SPO2 MONITORS IN PLACE. CALL LIGHT WITHIN REACH. EDMD AT BEDSIDE TO ASSESS AT THIS TIME.
--- NOTE | 2018-06-04 23:11 | NUR ---
PT TO CT NOW.
--- NOTE | 2018-06-04 23:22 | NUR ---
PT BACK TO ROOM FROM CT NOW.
[2018-06-04 23:50] LABS: INTERNATIONAL NORMALIZED RATIO 1.19 (0.93-1.1); PROTHROMBIN TIME 12.4 Seconds (9.6-11.5)
[2018-06-04 23:53] LABS: ALANINE AMINOTRANSFERASE 33 U/L (12-78); ALBUMIN 2.8 g/dL (3.4-5.0); ANION GAP 17 mmol/L (5-15); CALCIUM 8.2 mg/dL (8.5-10.1); CHLORIDE 101 mmol/L (98-107); CREATININE 0.79 mg/dL (0.55-1.02); MEAN CORPUSCULAR HEMOGLOBIN 27.7 pg (27.0-34.8); MEAN CORPUSCULAR HGB CONC 33.7 g/dL (32.4-35.8); MEAN CORPUSCULAR VOLUME 82.3 fL (80-100); MEAN PLATELET VOLUME 7.7 fL (7.4-10.4); PLATELET COUNT 338 x10^3/uL (130-400); RED BLOOD COUNT 3.94 x10^6/uL (3.82-5.3); RED CELL DISTRIBUTION WIDTH 22.5 % (9.6-15.2)
[2018-06-04 23:55] LABS: ALKALINE PHOSPHATASE 112 U/L (45-117); BILIRUBIN,TOTAL 0.5 mg/dL (0.2-1.0); TOTAL PROTEIN 6.5 g/dL (6.4-8.2)
--- NOTE | 2018-06-04 23:56 | NUR ---
PT HAS AFIB RATE 110-140'S ON PATTERN PERFORATING MACHINE OPERATOR. EDMD NOTIFIED.
[2018-06-04] MEDS ORDERED: MORPHINE SULFATE 4 MG/ML, 1ML ONE (23:58)
[2018-06-05] MEDS ORDERED: MORPHINE SULFATE 4 MG/ML, 1ML IVPush PRN
[2018-06-05] MEDS ORDERED: SODIUM CHLORIDE FLUSH 10ML SYR IVF ONE
--- NOTE | 2018-06-05 00:03 | NUR ---
EKG DONE AT BEDSIDE BY EMT.
[2018-06-05 00:16] LABS: BASOPHILS # (AUTO) 0.05 x10^3/uL (0-0.1); BASOPHILS % (AUTO) 1 % (0-1); EOSINOPHILS # (AUTO) 0.17 x10^3/uL (0-0.4); EOSINOPHILS % (AUTO) 2 % (1-7); LYMPHOCYTES # (AUTO) 1.79 x10^3/uL (1-3.4); LYMPHOCYTES % (AUTO) 20 % (22-44); MD SCAN; MONOCYTES # (AUTO) 0.69 x10^3/uL (0.2-0.8); MONOCYTES % (AUTO) 8 % (2-9); NEUTROPHILS # (AUTO) 6.46 x10^3/uL (1.8-6.8); NEUTROPHILS % (AUTO) 71 % (42-75)
--- NOTE | 2018-06-05 00:34 | NUR ---
PT MEDICATED PER EMAR. PT TOLERATED WELL. PT'S AOX4. RESPS EVEN AND UNLABORED. ALL MONITORS IN PLACE. CALL LIGHT WITHIN REACH.
[2018-06-05] MEDS ORDERED: DILTIAZEM 5 MG/ML, 10ML ONE (00:38)
--- NOTE | 2018-06-05 00:49 | NUR ---
PT MEDICATED PER EMAR. PT TOLERATED WELL. PT'S AOX4. RESPS EVEN AND UNLABORED.
--- NOTE | 2018-06-05 00:49 | NUR ---
EDMD AT BEDSIDE TO EXPLAIN ALL RESULTS AT THIS TIME. AWAITING DC NOW.
[2018-06-05] MEDS ORDERED: DILTIAZEM 5 MG/ML, 5ML IVPush ONE (01:00)
[2018-06-05 01:17] VITALS: BP 109/76
--- NOTE | 2018-06-05 01:17 | NUR ---
Patient/Caregiver given discharge instructions and they have confirmed that they understand the instructions. Patient ambulatory with steady gait.
--- NOTE | 2018-06-05 01:49 | NUR ---
Patient/Caregiver given discharge instructions and they have confirmed that they understand the instructions. Patient ambulatory with steady gait.
== END 2018-06-05 01:51 | disposition home or self-care (01) ==
LOC: ED 23:42
DX: I48.2 Chronic atrial fibrillation (principal); K43.9 Ventral hernia without obstruction or gangrene; I25.2 Old myocardial infarction; I50.9 Heart failure, unspecified; I11.0 Hypertensive heart disease with heart failure; K21.9 Gastro-esophageal reflux disease without esophagitis; J44.9 Chronic obstructive pulmonary disease, unspecified; E11.9 Type 2 diabetes mellitus without complications; F17.200 Nicotine dependence, unspecified, uncomplicated; Z89.021 Acquired absence of right finger(s)
CPT/HCPCS: 36415; 74176; 80053; 80162; 83690; 85025; 85610; 93005; 96374; 96375

== ENCOUNTER 2018-06-10 00:04 | Emergency (ER) | payer MEDICAID ==
[~2018-06-10] VITALS: Ht 170.2 cm; Wt 110.0 kg
--- NOTE | 2018-06-10 00:21 | NUR ---
BIB BY [facility] FOR MALFUNCTIONING OSTOMY AND INCREASING LEG WEAKNESS X 3 DAYS. BP 110/50, FSBS 146. COVERED IN STOOL
--- NOTE | 2018-06-10 00:22 | NUR ---
OSTOMY KIT ORDERED
--- NOTE | 2018-06-10 01:05 | NUR ---
STOOL/DRIED URINE CLEANED FROM ABDOMEN AND GROIN. SKIN AROUND OSTOMY QUITE EXORIATED. CALAMINE LOTION APPLIED AND NO STING PLACED WHERE WAFER NEEDED TO SEAL. NEW 2 3/4 WAFER/OSTOMY POUCH APPLIED WHILE PATIENT/BOYFRIEND WATCHED FOR RE-EDUCATION
[2018-06-10 01:48] VITALS: BP 145/77
== END 2018-06-10 01:51 | disposition home or self-care (01) ==
LOC: ED 01:03
DX: K94.03 Colostomy malfunction (principal); F17.210 Nicotine dependence, cigarettes, uncomplicated; I10 Essential (primary) hypertension; E11.9 Type 2 diabetes mellitus without complications
CPT/HCPCS: 99284

== ENCOUNTER 2018-06-10 13:15 | Emergency (ER) | payer MEDICAID ==
[~2018-06-10] VITALS: Ht 170.2 cm; Wt 105.0 kg
[2018-06-10 13:23] VITALS: BP 116/73
[2018-06-10] MEDS ORDERED: NYSTATIN TOPICAL POWDER 15GM TP STA (14:57)
--- NOTE | 2018-06-10 15:21 | NUR ---
TASK RN: CLEAN UNDERWEAR AND PANTS PROVIDED. PT ALSO GIVEN DERMAL WOUND BOARDING ROOM FIXER, NO RINSE SKIN CARE, GAUZE AND NYSTANTIN PWD UPON DISHARGE. D/C INST REV. & QUESTIONS ANSWERED.
== END 2018-06-10 15:25 | disposition home or self-care (01) ==
LOC: ED 15:19
DX: B37.89 Other sites of candidiasis (principal); Z43.3 Encounter for attention to colostomy; E11.65 Type 2 diabetes mellitus with hyperglycemia; I25.2 Old myocardial infarction; J44.9 Chronic obstructive pulmonary disease, unspecified; I50.9 Heart failure, unspecified; I11.0 Hypertensive heart disease with heart failure; I48.91 Unspecified atrial fibrillation; K21.9 Gastro-esophageal reflux disease without esophagitis
CPT/HCPCS: 99281

== ENCOUNTER 2018-06-10 18:38 | Emergency (ER) | payer MEDICAID ==
[~2018-06-10] VITALS: Ht 170.2 cm; Wt 103.0 kg
[2018-06-10 18:43] VITALS: BP 93/66
--- NOTE | 2018-06-10 19:16 | NUR ---
OSTOMY SUPPLIES ORDERED
--- NOTE | 2018-06-10 20:05 | NUR ---
area cleaned as well as possible, pt complaining of pain and asked this rn to stop. ostomy bag secured and seal verified
== END 2018-06-10 21:08 | disposition home or self-care (01) ==
LOC: ED 19:03
DX: K94.03 Colostomy malfunction (principal); F17.200 Nicotine dependence, unspecified, uncomplicated; J44.9 Chronic obstructive pulmonary disease, unspecified; K21.9 Gastro-esophageal reflux disease without esophagitis; I50.9 Heart failure, unspecified; I48.91 Unspecified atrial fibrillation; I25.2 Old myocardial infarction; E11.65 Type 2 diabetes mellitus with hyperglycemia; I11.0 Hypertensive heart disease with heart failure
CPT/HCPCS: 99284

== ENCOUNTER 2018-06-11 14:41 | Emergency (ER) | payer MEDICAID ==
[~2018-06-11] VITALS: Ht 170.2 cm; Wt 103.2 kg
--- NOTE | 2018-06-11 15:04 | NUR ---
PT BIB [facility] FOR OSTOMY RUPTURE, [facility] PLACED DRESSING OVER OSTOMY BAG. PT COVERED IN STOOL, CHANGED INTO GOWN. WOUND RN CALLED, RN TO COME TO BEDSIDE FOR FURTHER OSTOMY EDUCATION AND DIFFERENT SUPPLIES
--- NOTE | 2018-06-11 15:25 | NUR ---
WOUND RN AT BEDSIDE TO PROVIDE NEW BAG AND OSTOMY EDUCATION
--- NOTE | 2018-06-11 15:46 | NUR ---
SW NOTIFIED OF PT STATE OF BEING UNABLE TO CARE FOR SELF/CHANGE OSTOMY/CARBURETOR MECHANIC SUPPLIES. SW AWARE OF PT. PT TBDC WITH OSTOMY BELT AND ADDITIONAL SUPPLIES. PT TO FU WITH OUTPATIENT WOUND CARE FOR FU AND SUPPLIES
[2018-06-11 16:02] VITALS: BP 96/68
--- NOTE | 2018-06-11 16:42 | NUR ---
AWAITING ADDITIONAL SUPPLIES FOR PT TO TAKE HOME, PT GIVEN NEW CLOTHING AND BLANKETS
--- NOTE | 2018-06-11 16:58 | NUR ---
[facility] IS RESTOCKING ON THE FLOOR, AWAITING SUPPLIES FOR PT, [facility] WILL SEND DIAZ WHEN THEY ARE BACK FROM FLOOR STOCK
== END 2018-06-11 17:17 | disposition home or self-care (01) ==
LOC: ED 17:11
DX: T83.030A Leakage of cystostomy catheter, initial encounter (principal); Z43.3 Encounter for attention to colostomy; Y92.9 Unspecified place or not applicable; F17.200 Nicotine dependence, unspecified, uncomplicated; I25.2 Old myocardial infarction; I48.91 Unspecified atrial fibrillation; I50.9 Heart failure, unspecified; I11.0 Hypertensive heart disease with heart failure; J44.9 Chronic obstructive pulmonary disease, unspecified; E11.65 Type 2 diabetes mellitus with hyperglycemia; K21.9 Gastro-esophageal reflux disease without esophagitis
CPT/HCPCS: 99284

== ENCOUNTER 2018-06-12 11:43 | Emergency (ER) | payer MEDICAID ==
[~2018-06-12] VITALS: Ht 170.2 cm; Wt 103.2 kg
--- NOTE | 2018-06-12 14:58 | NUR ---
Pt wheeled to room with EDT.
--- NOTE | 2018-06-12 15:00 | NUR ---
Dr. Powers at bedside to evaluate pt. Pt changed out of stool covered clothing and into gown, pt assisted onto gurney. Pt's colostomy bag not connected to stoma wafer, stool coming out of ostomy. Pt also with c/o abdominal pain, decreased appetite, shakes, body aches, and right hand pain. Pt has notable wound to left foot and right chin.
--- NOTE | 2018-06-12 15:20 | NUR ---
PIV started, labs drawn. Labs sent with tech. Pt placed on monitors. VSS.
--- NOTE | 2018-06-12 15:29 | NUR ---
Chika, wound care, called regarding pt's ostomy. Chika states that she has provided the patient with extensive education about care of ostomy. Chika has no further suggestions for this RN regarding education and management of ostomy. Chika states that social sciences research scientist was in to discuss options with pt.
[2018-06-12 15:37] LABS: BASOPHILS # (AUTO) 0.09 x10^3/uL (0-0.1); BASOPHILS % (AUTO) 1 % (0-1); EOSINOPHILS # (AUTO) 0.11 x10^3/uL (0-0.4); EOSINOPHILS % (AUTO) 1 % (1-7); LYMPHOCYTES # (AUTO) 2.16 x10^3/uL (1-3.4); LYMPHOCYTES % (AUTO) 22 % (22-44); MD NO; MEAN CORPUSCULAR HEMOGLOBIN 27.6 pg (27.0-34.8); MEAN CORPUSCULAR HGB CONC 32.7 g/dL (32.4-35.8); MEAN CORPUSCULAR VOLUME 84.4 fL (80-100); MEAN PLATELET VOLUME 7.6 fL (7.4-10.4); MONOCYTES # (AUTO) 0.78 x10^3/uL (0.2-0.8); MONOCYTES % (AUTO) 8 % (2-9); NEUTROPHILS # (AUTO) 6.76 x10^3/uL (1.8-6.8); NEUTROPHILS % (AUTO) 68 % (42-75); PLATELET COUNT 332 x10^3/uL (130-400); RED BLOOD COUNT 4.14 x10^6/uL (3.82-5.3); RED CELL DISTRIBUTION WIDTH 21.9 % (9.6-15.2)
--- NOTE | 2018-06-12 15:40 | NUR ---
XR at bedside.
[2018-06-12 15:45] LABS: ALBUMIN 2.8 g/dL (3.4-5.0); ANION GAP 9 mmol/L (5-15); CALCIUM 7.2 mg/dL (8.5-10.1); CHLORIDE 105 mmol/L (98-107)
[2018-06-12 15:49] LABS: ALANINE AMINOTRANSFERASE 37 U/L (12-78); ALKALINE PHOSPHATASE 146 U/L (45-117); BILIRUBIN,TOTAL 0.8 mg/dL (0.2-1.0); CREATININE 0.54 mg/dL (0.55-1.02); TOTAL PROTEIN 6.3 g/dL (6.4-8.2)
[2018-06-12] MEDS ORDERED: SODIUM CHLORIDE 0.9% 1,000ML IVBOLUS ONE (16:30)
[2018-06-12] MEDS ORDERED: POTASSIUM CHLORIDE 20 MEQ TAB.ER.PRT PO ONE (16:30)
[2018-06-12] MEDS ORDERED: POTASSIUM CHLORIDE 20 MEQ TAB.ER.PRT ONE (16:36)
--- NOTE | 2018-06-12 16:40 | NUR ---
Pt medicated per MAR.
--- NOTE | 2018-06-12 16:44 | NUR ---
Pt to imaging, with tech, via guade.
--- NOTE | 2018-06-12 17:03 | NUR ---
Pt back to room from imaging.
--- NOTE | 2018-06-12 17:14 | NUR ---
This RN discussed with pt plan to have pt get into an ED wheelchair and shower herself, per rehabilitation services manager, pt is able to shower without any covering on stoma. RN then advised pt that she will demonstrate how to place new ostomy bag over her stoma. Pt refused, stating "I can't see it, I'm fat. I don't do it, he's supposed to do it" as pt pointed at her boyfriend who is lying on the floor. Pt's boyfriend stated, "I don't know how to do it, no one has ever shown me." Pt's boyfriend was reminded of the fact that the pt and he had been provided education over the course of the 20 days that she was admitted after ostomy placement, as well as the wound RN at bedside yesterday in the ED, attempting to teach him how to change and care for the ostomy and per her note and a phone conversation with that RN, he was unwilling to get up off of the floor to be educated. Pt and boyfriend advised that returning to the ED to change her ostomy bag ever day, sometimes multiple times a day, is not an appropriate way to care for her ostomy. Pt was asked if she agreed and nodded "yes." Pt advised that we are awaiting results of her CT scan and will let her IVF finish and then she will be permitted to shower and we will attempt to find her fitting clothing if she is to be discharged.
--- NOTE | 2018-06-12 17:30 | NUR ---
Dr. Powers at bedside to discuss ED findings and POC. Pt's heart rate now noted to be in the 140-160s, a-fib. EKG ordered and pt's home medications to be ordered as pt states that she has not taken any of her home medications yet today.
[2018-06-12] MEDS ORDERED: DIGOXIN 0.25 MG/ML, 2ML ONE (17:56)
[2018-06-12] MEDS ORDERED: DIGOXIN 0.25 MG/ML, 2ML IVPush ONE (18:00)
--- NOTE | 2018-06-12 18:14 | NUR ---
EKG complete, pt medicated, per MAR. IVF complete. Pt states that she has not taken any of her medications for her afib today. Dr. Gio leblanc.
[2018-06-12] MEDS ORDERED: DILTIAZEM CD 180 MG CAP.ER.24H PO ONE (18:30)
--- NOTE | 2018-06-12 18:45 | NUR ---
Pt wheeled to shower room and given instructions for showering and caring for her stoma while in the shower. EDT to find clothing for pt for discharge.
--- NOTE | 2018-06-12 19:34 | NUR ---
Pt's boyfriend demonstrated proper care of ostomy. Pt complained and yelled at boyfriend and RN throughout entire procedure. Pt stated, "this isn't the same, it's not going to stay on, I'm going to get mad at this nurse, she's not comprehending anything." RN explained to pt and pt's boyfriend that while supplies may be slightly different they are still both effective, RN offered to look at supplies that the pt brought with her and explain how it works. Pt declined.
--- NOTE | 2018-06-12 19:40 | NUR ---
Pt medicated per MAR, as medication has arrived from pharmacy. Pt ambulating in room with minimal assistance from boyfriend, to get dressed and into personal wheelchair.
--- NOTE | 2018-06-12 19:41 | NUR ---
Patient/Caregiver given discharge instructions and they have confirmed that they understand the instructions. Patient wheeled to discharge area in personal wheelchair by boyfriend.
[2018-06-12 19:59] VITALS: BP 134/84
== END 2018-06-12 20:01 | disposition home or self-care (01) ==
LOC: ED 17:13
DX: I48.0 Paroxysmal atrial fibrillation (principal); G89.29 Other chronic pain; R10.84 Generalized abdominal pain; F17.200 Nicotine dependence, unspecified, uncomplicated; J44.9 Chronic obstructive pulmonary disease, unspecified; I25.2 Old myocardial infarction; I11.0 Hypertensive heart disease with heart failure; I50.9 Heart failure, unspecified; E11.9 Type 2 diabetes mellitus without complications; K21.9 Gastro-esophageal reflux disease without esophagitis
CPT/HCPCS: 36415; 71045; 74177; 80053; 80162; 83605; 83690; 84145; 85025; 87040; 93005; 96374; 99284; J1160; J7030

== ENCOUNTER 2018-06-13 15:36 | Emergency (ER) | payer MEDICAID ==
[~2018-06-13] VITALS: Ht 170.2 cm; Wt 102.0 kg
[2018-06-13 15:43] VITALS: BP 104/66
--- NOTE | 2018-06-13 16:24 | NUR ---
PT GIVEN COLOSTOMY BAG AND SUPPLIES TO CLEAN AND DRESS COLOSTOMY. BOYFRIEND AT BEDSIDE AND REPLACED BAG FOR COLOSTOMY. PT THEN DISCHARGED WITH INSTRUCTIONS TO GO TO [facility] FOR FURTHER SUPPLIES. PT VERBALIZED UNDERSTANDING.
== END 2018-06-13 16:30 | disposition home or self-care (01) ==
LOC: ED 16:03
DX: K94.03 Colostomy malfunction (principal); I25.2 Old myocardial infarction; E11.65 Type 2 diabetes mellitus with hyperglycemia; I48.91 Unspecified atrial fibrillation; I50.9 Heart failure, unspecified; K21.9 Gastro-esophageal reflux disease without esophagitis; J44.9 Chronic obstructive pulmonary disease, unspecified; I11.0 Hypertensive heart disease with heart failure
CPT/HCPCS: 99284

== ENCOUNTER 2018-06-15 09:31 | Emergency (ER) | payer MEDICAID ==
[~2018-06-15] VITALS: Ht 170.2 cm; Wt 103.0 kg
--- NOTE | 2018-06-15 10:05 | NUR ---
PT ARRIVED IN ER WITH NO COLSTOMY BAG OR SEAL IN PLACE AND STOOL ON ABDOMEN AND HANDS. SIGNIFICANT OTHER STATES THEY RECEIVED TWO BAGS TWO DAYS AGO AT ER WITH NEW SEAL BUT THAT IT POPPED OFF. THEY HAVE NO MORE SUPPLIES. PT STATES SHE HAS BEEN SHAKY FOR A FEW DAYS. SIGNIFICANT OTHER FRUSTRATED BECAUSE THEY ARE ON THE STREETS AND CANNOT KEEP COLOSTOMY BAG ON HER AND THAT SHE IS BECOMING FULL OF STOOL WITH NO PLACE TO CLEAN UP
--- NOTE | 2018-06-15 10:49 | NUR ---
OBTAINED COLOSTOMY BAG AND CONTACTED WOUND CARE NURSE WHO WILL COME TO ROOM TO HELP REPLACE BAG.
--- NOTE | 2018-06-15 11:04 | NUR ---
This RN communicated to pt & significant other that an appt. with wound care is scheduled for tomorrow at 1430. Given address & both verbalize that they will not miss appt.
--- NOTE | 2018-06-15 11:05 | NUR ---
WOUND CARE NURSE AT BEDSIDE PLACING COLOSTOMY BAG. PT THEN TO SHOWER
[2018-06-15 11:25] LABS: MD YES; MEAN CORPUSCULAR HEMOGLOBIN 27.7 pg (27.0-34.8); MEAN CORPUSCULAR HGB CONC 32.8 g/dL (32.4-35.8); MEAN CORPUSCULAR VOLUME 84.2 fL (80-100); MEAN PLATELET VOLUME 7.4 fL (7.4-10.4); PLATELET COUNT 265 x10^3/uL (130-400); RED BLOOD COUNT 4.07 x10^6/uL (3.82-5.3); RED CELL DISTRIBUTION WIDTH 21.4 % (9.6-15.2)
[2018-06-15 11:34] LABS: ALBUMIN 2.4 g/dL (3.4-5.0); ANION GAP 9 mmol/L (5-15); CALCIUM 6.4 mg/dL (8.5-10.1); CHLORIDE 103 mmol/L (98-107)
[2018-06-15 11:39] LABS: ALANINE AMINOTRANSFERASE 28 U/L (12-78); ALKALINE PHOSPHATASE 123 U/L (45-117); BILIRUBIN,TOTAL 0.5 mg/dL (0.2-1.0); CREATININE 0.68 mg/dL (0.55-1.02); TOTAL PROTEIN 5.9 g/dL (6.4-8.2)
[2018-06-15 11:41] LABS: LYMPHS% (MANUAL) 26 % (22-44); MONOS#(MANUAL) 0.28 x10^3/uL (0.3-2.7); MONOS% (MANUAL) 6 % (2-9); SEG#(MANUAL) 3.13 x10^3/uL (1.8-6.8); SEGS% (MANUAL) 68 % (42-75)
[2018-06-15 11:43] LABS: ANISOCYTOSIS 1+
[2018-06-15 11:44] LABS: <PLATELET ESTIMATE> ADEQUATE; <PLT MORPHOLOGY> NORMAL PLT MORPH; POLYCHROMASIA 1+
[2018-06-15 12:09] VITALS: BP 123/85
== END 2018-06-15 13:03 | disposition home or self-care (01) ==
LOC: ED 10:07
DX: K94.03 Colostomy malfunction (principal); E11.65 Type 2 diabetes mellitus with hyperglycemia; I25.2 Old myocardial infarction; K21.9 Gastro-esophageal reflux disease without esophagitis; J44.9 Chronic obstructive pulmonary disease, unspecified; I50.9 Heart failure, unspecified; I11.0 Hypertensive heart disease with heart failure; I48.91 Unspecified atrial fibrillation; F17.200 Nicotine dependence, unspecified, uncomplicated; Z88.0 Allergy status to penicillin
CPT/HCPCS: 36415; 80053; 85025; 99284

== ENCOUNTER → 2018-06-16 | Outpatient (CLI) | payer MEDICAID | END | disposition home or self-care (01) | LOC: WOUND 14:10 | PROVIDERS: ATTEND Nurse Practitioner Family | DX: Z93.3 Colostomy status (principal); E11.65 Type 2 diabetes mellitus with hyperglycemia; I11.0 Hypertensive heart disease with heart failure; I50.43 Acute on chronic combined systolic (congestive) and diastolic (congestive) heart failure; I48.0 Paroxysmal atrial fibrillation; I48.1 Persistent atrial fibrillation; I48.2 Chronic atrial fibrillation; G89.29 Other chronic pain; E78.5 Hyperlipidemia, unspecified; I25.2 Old myocardial infarction; J44.9 Chronic obstructive pulmonary disease, unspecified; K21.9 Gastro-esophageal reflux disease without esophagitis; E66.01 Morbid (severe) obesity due to excess calories; Z88.0 Allergy status to penicillin; Z79.4 Long term (current) use of insulin; Z88.1 Allergy status to other antibiotic agents; Z87.891 Personal history of nicotine dependence; Z79.01 Long term (current) use of anticoagulants; Z79.899 Other long term (current) drug therapy; Z89.421 Acquired absence of other right toe(s); Z90.710 Acquired absence of both cervix and uterus; Z90.49 Acquired absence of other specified parts of digestive tract | CPT/HCPCS: 99213 ==

== ENCOUNTER 2018-06-17 19:38 | Inpatient (IN) | payer MEDICAID ==
[~2018-06-17] VITALS: Ht 170.2 cm; Wt 105.8 kg
[2018-06-17] MEDS ORDERED: ALBUTEROL/IPRATROPIUM 2.5MG/0.5MG, 3 ML ONE (19:59)
[2018-06-17] MEDS ORDERED: ALBUTEROL/IPRATROPIUM 2.5MG/0.5MG, 3 ML NPPB SCH ×2 (20:00→21:00)
--- NOTE | 2018-06-17 20:16 | NUR ---
ASSUMED CARE OF PT AT THIS TIME. THIS IS A 57 YO FEMALE WHO PRESENTS TO THE ER C/O N/V X 24 HOURS AND EXACERBATION OF HER COPD. PT AO X 4. SKIN PWD. PT HAS RECENT SX WOUND ON ABD FROM AN OSTOMY PLACEMENT. SURGICAL SITE APPEARS TO BE WELL HEALING. PT ABLE TO SPEAK IN FULL 5-7 WORD SENTENCES W/O DIFFICULTY. PT UNSURE WHEN HER SURGERY WAS, POOR HISTORIAN, VAGUE WITH ANSWERS ABOUT MEDICAL HX, SOCIAL HABITS AND PAIN. WILL CONT TO MONITOR PT.
[2018-06-17] MEDS ORDERED: methylPREDNISolone SOD SUCC 125 MG/2 ML IVPush ONE (20:30)
[2018-06-17 20:37] LABS: BASOPHILS # (AUTO) 0.03 x10^3/uL (0-0.1); BASOPHILS % (AUTO) 0 % (0-1); EOSINOPHILS # (AUTO) 0.03 x10^3/uL (0-0.4); EOSINOPHILS % (AUTO) 0 % (1-7); LYMPHOCYTES # (AUTO) 2.23 x10^3/uL (1-3.4); LYMPHOCYTES % (AUTO) 28 % (22-44); MD NO; MEAN CORPUSCULAR HEMOGLOBIN 28.2 pg (27.0-34.8); MEAN CORPUSCULAR HGB CONC 33.1 g/dL (32.4-35.8); MEAN CORPUSCULAR VOLUME 85.3 fL (80-100); MEAN PLATELET VOLUME 7.4 fL (7.4-10.4); MONOCYTES # (AUTO) 0.71 x10^3/uL (0.2-0.8); MONOCYTES % (AUTO) 9 % (2-9); NEUTROPHILS # (AUTO) 5.11 x10^3/uL (1.8-6.8); NEUTROPHILS % (AUTO) 63 % (42-75); PLATELET COUNT 237 x10^3/uL (130-400); RED BLOOD COUNT 4.11 x10^6/uL (3.82-5.3); RED CELL DISTRIBUTION WIDTH 21.8 % (9.6-15.2)
[2018-06-17] MEDS ORDERED: ONDANSETRON 2MG/ML, 2ML ONE (20:45)
[2018-06-17 20:46] LABS: ALBUMIN 2.7 g/dL (3.4-5.0); ANION GAP 11 mmol/L (5-15); CALCIUM 6.4 mg/dL (8.5-10.1); CHLORIDE 99 mmol/L (98-107); CREATININE 0.66 mg/dL (0.55-1.02)
[2018-06-17] MEDS ORDERED: methylPREDNISolone SOD SUCC 125 MG/2 ML ONE (20:46)
[2018-06-17 20:50] LABS: TROPONIN I 0.026 ng/mL (0.000-0.045)
[2018-06-17] MEDS ORDERED: MAGNESIUM SULFATE 1 GM/2 ML IVPush STA (20:54)
[2018-06-17] MEDS ORDERED: ONDANSETRON 2MG/ML, 2ML IVPush ONE (21:00)
[2018-06-17] MEDS ORDERED: SODIUM CHLORIDE 0.9% 1,000ML IVBOLUS ONE (21:00)
[2018-06-17 21:03] LABS: MICROSCOPIC NOT IND
[2018-06-17 21:07] LABS: CULTURE INDICATED? NO
--- NOTE | 2018-06-17 21:17 | NUR ---
PT MEDICATED ORDERED FOR NAUSEA/BREATHING. FREQUENT LOOSE COUGH NOTED. PT HAS HAD ONE EPISODE OF N/V PRIOR TO BEING MEDICATED. PT AO X 4. SKIN PWD. RESP EVEN AND UNLABORED. PT PROVIDED WITH BEAR HUGGER PER PT REQUEST. AT BEDSIDE. PT ON CONT BP, CARDIAC AND O2 MONITORS. CALL LIGHT WITHIN REACH. WILL CONT TO MONITOR PT.
[2018-06-17 21:23] LABS: AMPHETAMINE SCREEN, URINE Negative (Negative); BARBITURATE SCREEN, URINE Negative (Negative); BENZODIAZEPINE SCREEN, URINE Negative (Negative); CANNABINOID SCREEN, URINE Negative (Negative); COCAINE SCREEN, URINE Negative (Negative); METHADONE SCREEN, URINE Negative (Negative); OPIATE SCREEN, URINE Negative (Negative)
[2018-06-17] MEDS ORDERED: MAGNESIUM SULFATE/D5W 100 ML IVPB ONE (21:30)
[2018-06-17] MEDS ORDERED: MAGNESIUM SULFATE 1 GM in SODIUM CHLORIDE 0.9% 50 ML IVPB ONE (21:30)
[2018-06-17] MEDS ORDERED: ENOXAPARIN 40 MG/0.4 ML SQ SCH (22:00)
[2018-06-17] MEDS ORDERED: hydrALAzine 20 MG/ML, 1ML IVPush PRN (22:00)
[2018-06-17] MEDS ORDERED: LORazepam 1MG TABLET PO PRN (22:00)
[2018-06-17] MEDS ORDERED: POLYETHYLENE GLYCOL 17 GM PACKET PO PRN (22:00)
--- NOTE | 2018-06-17 22:05 | NUR ---
PT REPOSITIONED FOR COMFORT. PT AWARE WE ARE WAITNIG FOR ADMISSION. PT AO X 4. SKIN PWD. RESP EVEN AND EQAUL. NAD NOTED. SKIN PWD. RESP EVEN AND EQAUL. CALL LIGHT WITHIN REACH.
--- NOTE | 2018-06-17 22:06 | NUR ---
Bedside SBAR report received from RN, Chika. Pt resting on [facility].
--- NOTE | 2018-06-17 22:08 | NUR ---
REPORT TO SHERIF CARTER WHO ASSUMED CARE OF PT.
[2018-06-17] MEDS ORDERED: POTASSIUM CHLORIDE 20 MEQ TAB.ER.PRT PO ONE (22:30)
[2018-06-17 22:31] LABS: TROPONIN I 0.024 ng/mL (0.000-0.045)
--- NOTE | 2018-06-17 23:07 | NUR ---
Pt sleeping on gurney, wakes up to RN entering room, pt coughing. Water provided. Pt remains on monitors, VSS. Pt's boyfriend sleeping on floor in room.
--- NOTE | 2018-06-18 00:21 | NUR ---
Pt O2 sats noted be dipping into low 80s, and sustaining in mid to high 80s. RN in to assess pt, pt sleeping with mouth open. NC moved to pt's mouth, O2 sats up to mid 90s and sustaining. Pt's BP cuff adjusted and IV flushed. Pt did not wake up throughout procedures.
--- NOTE | 2018-06-18 01:00 | NUR ---
Telephone SBAR report called to Jazz GORMAN.
[2018-06-18 01:14] VITALS: BP 118/64
[2018-06-18] MEDS: methylPREDNISolone SOD SUCC 125 MG/2 ML IVPush SCH ×4 (03:54→21:44)
[2018-06-18] MEDS: OMEPRAZOLE 20 MG CAPSULE.DR PO SCH (05:08)
[2018-06-18 07:12] LABS: ALBUMIN 2.4 g/dL (3.4-5.0); ANION GAP 9 mmol/L (5-15); CALCIUM 6.2 mg/dL (8.5-10.1); CHLORIDE 100 mmol/L (98-107)
[2018-06-18 07:17] LABS: MEAN CORPUSCULAR HEMOGLOBIN 27.6 pg (27.0-34.8); MEAN CORPUSCULAR HGB CONC 32.6 g/dL (32.4-35.8); MEAN CORPUSCULAR VOLUME 84.7 fL (80-100); MEAN PLATELET VOLUME 7.9 fL (7.4-10.4); PLATELET COUNT 208 x10^3/uL (130-400); RED BLOOD COUNT 3.67 x10^6/uL (3.82-5.3)
[2018-06-18 07:18] LABS: ALANINE AMINOTRANSFERASE 25 U/L (12-78); ALKALINE PHOSPHATASE 109 U/L (45-117); BILIRUBIN,TOTAL 0.5 mg/dL (0.2-1.0); CREATININE 0.87 mg/dL (0.55-1.02); TOTAL PROTEIN 5.8 g/dL (6.4-8.2); TROPONIN I < 0.015 ng/mL (0.000-0.045)
[2018-06-18 07:31] LABS: BASOPHILS # (AUTO) 0.01 x10^3/uL (0-0.1); BASOPHILS % (AUTO) 0 % (0-1); EOSINOPHILS % (AUTO) 0 % (1-7); LYMPHOCYTES # (AUTO) 0.62 x10^3/uL (1-3.4); LYMPHOCYTES % (AUTO) 19 % (22-44); MD SCAN; MONOCYTES # (AUTO) 0.04 x10^3/uL (0.2-0.8); MONOCYTES % (AUTO) 1 % (2-9); NEUTROPHILS # (AUTO) 2.58 x10^3/uL (1.8-6.8); NEUTROPHILS % (AUTO) 79 % (42-75)
[2018-06-18 08:00] VITALS: BP 104/68
[2018-06-18] MEDS: APIXABAN 5 MG TABLET PO SCH ×2 (08:42→21:45)
[2018-06-18] MEDS: DIGOXIN 0.25 MG TABLET PO SCH (08:43)
[2018-06-18] MEDS: METOPROLOL TARTRATE 50 MG TABLET PO SCH ×2 (08:43→21:44)
[2018-06-18] MEDS: DILTIAZEM CD 180 MG CAP.ER.24H PO SCH (08:43)
[2018-06-18] MEDS: FUROSEMIDE 40 MG TABLET PO SCH (08:44)
[2018-06-18] MEDS ORDERED: LORazepam 2 MG/ML, 1ML IV PRN ×5 (09:00)
[2018-06-18] MEDS ORDERED: LORazepam 1MG TABLET PO PRN ×4 (09:00)
[2018-06-18] MEDS: ACETAMINOPHEN 325 MG TABLET PO PRN (09:03)
[2018-06-18] MEDS: LORazepam 0.5MG TABLET PO PRN ×2 (09:45→13:28)
[2018-06-18] MEDS: POTASSIUM CHLORIDE 20 MEQ, MAGNESIUM SULFATE 1 GM, FOLIC ACID 1 MG, THIAMINE 200 MG, MV... IV SCH (09:45)
[2018-06-18] MEDS: INSULIN GLARGINE 100 UNITS/ML, PEN SQ-INSULIN SCH ×2 (09:46→21:46)
[2018-06-18] MEDS: BUDESONIDE 0.5 MG/2 ML INHA NPPB SCH ×2 (09:54→19:00)
[2018-06-18] MEDS: ALBUTEROL SULFATE 2.5 MG/3 ML NPPB SCH ×4 (09:54→21:51)
[2018-06-18 15:01] VITALS: BP 108/66
[2018-06-18] MEDS: SODIUM CHLORIDE 0.45% 1,000 ML IV SCH ×2 (16:07→21:44)
[2018-06-18 18:45] VITALS: BP 101/63
[2018-06-18] MEDS: SIMVASTATIN 40 MG TABLET PO SCH (21:45)
[2018-06-19 00:17] VITALS: BP 132/66
[2018-06-19] MEDS: methylPREDNISolone SOD SUCC 125 MG/2 ML IVPush SCH ×4 (03:07→20:31)
[2018-06-19 05:38] LABS: BASOPHILS # (AUTO) 0.01 x10^3/uL (0-0.1); BASOPHILS % (AUTO) 0 % (0-1); EOSINOPHILS % (AUTO) 0 % (1-7); LYMPHOCYTES # (AUTO) 0.61 x10^3/uL (1-3.4); LYMPHOCYTES % (AUTO) 11 % (22-44); MD NO; MEAN CORPUSCULAR HEMOGLOBIN 28.4 pg (27.0-34.8); MEAN CORPUSCULAR HGB CONC 33.2 g/dL (32.4-35.8); MEAN CORPUSCULAR VOLUME 85.6 fL (80-100); MEAN PLATELET VOLUME 7.9 fL (7.4-10.4); MONOCYTES # (AUTO) 0.19 x10^3/uL (0.2-0.8); MONOCYTES % (AUTO) 4 % (2-9); NEUTROPHILS # (AUTO) 4.58 x10^3/uL (1.8-6.8); NEUTROPHILS % (AUTO) 85 % (42-75); PLATELET COUNT 201 x10^3/uL (130-400); RED BLOOD COUNT 3.59 x10^6/uL (3.82-5.3); RED CELL DISTRIBUTION WIDTH 21.8 % (9.6-15.2)
[2018-06-19 05:44] LABS: CHLORIDE 101 mmol/L (98-107)
[2018-06-19 05:51] LABS: ALANINE AMINOTRANSFERASE 26 U/L (12-78); ALBUMIN 2.5 g/dL (3.4-5.0); ALKALINE PHOSPHATASE 97 U/L (45-117); ANION GAP 6 mmol/L (5-15); BILIRUBIN,TOTAL 0.3 mg/dL (0.2-1.0); CALCIUM 6.8 mg/dL (8.5-10.1); CREATININE 0.58 mg/dL (0.55-1.02); TOTAL PROTEIN 5.9 g/dL (6.4-8.2)
[2018-06-19] MEDS: OMEPRAZOLE 20 MG CAPSULE.DR PO SCH (05:57)
[2018-06-19] MEDS: SODIUM CHLORIDE 0.45% 1,000 ML IV SCH (05:57)
[2018-06-19] MEDS: ALBUTEROL SULFATE 2.5 MG/3 ML NPPB SCH ×4 (06:23→18:42)
[2018-06-19 07:37] VITALS: BP 99/68
[2018-06-19] MEDS: POTASSIUM CHLORIDE 20 MEQ, MAGNESIUM SULFATE 1 GM, FOLIC ACID 1 MG, THIAMINE 200 MG, MV... IV SCH (09:48)
[2018-06-19] MEDS: FUROSEMIDE 40 MG TABLET PO SCH (09:48)
[2018-06-19] MEDS: METOPROLOL TARTRATE 50 MG TABLET PO SCH ×2 (09:48→20:32)
[2018-06-19] MEDS: APIXABAN 5 MG TABLET PO SCH ×2 (09:48→20:32)
[2018-06-19] MEDS: DILTIAZEM CD 180 MG CAP.ER.24H PO SCH (09:48)
[2018-06-19] MEDS: DIGOXIN 0.25 MG TABLET PO SCH (09:48)
[2018-06-19] MEDS: INSULIN LISPRO 100 UNITS/ML, PEN SQ-INSULIN SCH ×4 (09:49→20:33)
[2018-06-19] MEDS: INSULIN GLARGINE 100 UNITS/ML, PEN SQ-INSULIN SCH ×2 (09:50→20:33)
[2018-06-19] MEDS ORDERED: MAGNESIUM SULFATE PMX 2GM/50ML 50 ML IV ONE (11:00)
[2018-06-19 12:38] VITALS: BP 122/69
[2018-06-19] MEDS ORDERED: INSULIN GLARGINE 100 UNITS/ML, PEN SQ-INSULIN SCH (13:00)
[2018-06-19] MEDS: BUDESONIDE 0.5 MG/2 ML INHA NPPB SCH ×2 (15:14→18:42)
[2018-06-19] MEDS: ACETAMINOPHEN 325 MG TABLET PO PRN (16:09)
[2018-06-19] MEDS: LORazepam 0.5MG TABLET PO PRN (16:09)
[2018-06-19 19:25] VITALS: BP 110/69
[2018-06-19 20:31] VITALS: BP 120/73
[2018-06-19] MEDS: SIMVASTATIN 40 MG TABLET PO SCH (20:32)
[2018-06-20 00:38] VITALS: BP 132/74
[2018-06-20] MEDS: methylPREDNISolone SOD SUCC 125 MG/2 ML IVPush SCH ×4 (02:58→21:47)
[2018-06-20] MEDS: POTASSIUM CHLORIDE 20 MEQ, MAGNESIUM SULFATE 1 GM, FOLIC ACID 1 MG, THIAMINE 200 MG, MV... IV SCH (03:39)
[2018-06-20 04:02] LABS: BASOPHILS # (AUTO) 0.02 x10^3/uL (0-0.1); BASOPHILS % (AUTO) 0 % (0-1); EOSINOPHILS % (AUTO) 0 % (1-7); LYMPHOCYTES # (AUTO) 0.73 x10^3/uL (1-3.4); LYMPHOCYTES % (AUTO) 10 % (22-44); MD NO; MEAN CORPUSCULAR HEMOGLOBIN 28.4 pg (27.0-34.8); MEAN CORPUSCULAR HGB CONC 32.9 g/dL (32.4-35.8); MEAN CORPUSCULAR VOLUME 86.3 fL (80-100); MEAN PLATELET VOLUME 7.9 fL (7.4-10.4); MONOCYTES # (AUTO) 0.26 x10^3/uL (0.2-0.8); MONOCYTES % (AUTO) 4 % (2-9); NEUTROPHILS # (AUTO) 6.04 x10^3/uL (1.8-6.8); NEUTROPHILS % (AUTO) 86 % (42-75); PLATELET COUNT 220 x10^3/uL (130-400); RED BLOOD COUNT 3.69 x10^6/uL (3.82-5.3); RED CELL DISTRIBUTION WIDTH 21.3 % (9.6-15.2)
[2018-06-20 04:11] LABS: ALBUMIN 2.5 g/dL (3.4-5.0); CALCIUM 6.8 mg/dL (8.5-10.1); CHLORIDE 97 mmol/L (98-107)
[2018-06-20 04:25] LABS: ALANINE AMINOTRANSFERASE 28 U/L (12-78); ALKALINE PHOSPHATASE 94 U/L (45-117); ANION GAP 5 mmol/L (5-15); BILIRUBIN,TOTAL 0.1 mg/dL (0.2-1.0); CREATININE 0.51 mg/dL (0.55-1.02); TOTAL PROTEIN 6.1 g/dL (6.4-8.2)
[2018-06-20] MEDS: OMEPRAZOLE 20 MG CAPSULE.DR PO SCH (05:50)
[2018-06-20] MEDS: ALBUTEROL SULFATE 2.5 MG/3 ML NPPB SCH ×3 (06:00→20:00)
[2018-06-20 06:51] VITALS: BP 114/72
[2018-06-20] MEDS ORDERED: MAGNESIUM SULFATE PMX 2GM/50ML 50 ML IV ONE (08:00)
[2018-06-20] MEDS ORDERED: POTASSIUM CHLORIDE 20 MEQ TAB.ER.PRT PO ONE ×3 (08:00→15:00)
[2018-06-20 08:28] LABS: O2 FLOW 2.5 L/min
[2018-06-20] MEDS: BUDESONIDE 0.5 MG/2 ML INHA NPPB SCH ×2 (09:00→20:00)
[2018-06-20] MEDS: THIAMINE 100MG TABLET PO SCH (09:28)
[2018-06-20] MEDS: METOPROLOL TARTRATE 50 MG TABLET PO SCH ×2 (09:28→21:48)
[2018-06-20] MEDS: NEUTRA PHOS K 250 MG TABLET PO SCH ×3 (09:28→21:48)
[2018-06-20] MEDS: DILTIAZEM CD 180 MG CAP.ER.24H PO SCH (09:28)
[2018-06-20] MEDS: FUROSEMIDE 40 MG TABLET PO SCH (09:29)
[2018-06-20] MEDS: APIXABAN 5 MG TABLET PO SCH ×2 (09:29→21:48)
[2018-06-20] MEDS: DIGOXIN 0.25 MG TABLET PO SCH (09:29)
[2018-06-20] MEDS: FOLIC ACID 1 MG TABLET PO SCH (09:29)
[2018-06-20] MEDS: INSULIN GLARGINE 100 UNITS/ML, PEN SQ-INSULIN SCH ×2 (09:30→21:49)
[2018-06-20] MEDS: INSULIN LISPRO 100 UNITS/ML, PEN SQ-INSULIN SCH ×4 (09:30→21:49)
[2018-06-20 12:31] VITALS: BP 136/80
[2018-06-20] MEDS: ACETAMINOPHEN 325 MG TABLET PO PRN (16:07)
[2018-06-20] MEDS: CLINDAMYCIN 300 MG CAPSULE PO SCH (17:53)
[2018-06-20 20:03] VITALS: BP 120/81
[2018-06-20 21:45] VITALS: BP 144/81
[2018-06-20] MEDS: SIMVASTATIN 40 MG TABLET PO SCH (21:48)
[2018-06-21] MEDS: CLINDAMYCIN 300 MG CAPSULE PO SCH ×4 (00:12→21:13)
[2018-06-21 01:04] VITALS: BP 148/75
[2018-06-21] MEDS: methylPREDNISolone SOD SUCC 125 MG/2 ML IVPush SCH ×4 (03:11→21:13)
[2018-06-21] MEDS: ALBUTEROL SULFATE 2.5 MG/3 ML NPPB SCH ×5 (03:45→20:46)
[2018-06-21 04:14] LABS: BASOPHILS # (AUTO) 0.01 x10^3/uL (0-0.1); BASOPHILS % (AUTO) 0 % (0-1); EOSINOPHILS % (AUTO) 0 % (1-7); LYMPHOCYTES # (AUTO) 0.76 x10^3/uL (1-3.4); LYMPHOCYTES % (AUTO) 11 % (22-44); MD NO; MEAN CORPUSCULAR HEMOGLOBIN 27.8 pg (27.0-34.8); MEAN CORPUSCULAR HGB CONC 32.7 g/dL (32.4-35.8); MEAN CORPUSCULAR VOLUME 84.9 fL (80-100); MEAN PLATELET VOLUME 7.6 fL (7.4-10.4); MONOCYTES # (AUTO) 0.27 x10^3/uL (0.2-0.8); MONOCYTES % (AUTO) 4 % (2-9); NEUTROPHILS # (AUTO) 6.18 x10^3/uL (1.8-6.8); NEUTROPHILS % (AUTO) 86 % (42-75); PLATELET COUNT 239 x10^3/uL (130-400); RED BLOOD COUNT 4.13 x10^6/uL (3.82-5.3); RED CELL DISTRIBUTION WIDTH 20.7 % (9.6-15.2)
[2018-06-21 04:21] LABS: ALANINE AMINOTRANSFERASE 43 U/L (12-78); ALBUMIN 2.7 g/dL (3.4-5.0); ANION GAP 6 mmol/L (5-15); CALCIUM 7.3 mg/dL (8.5-10.1); CHLORIDE 95 mmol/L (98-107)
[2018-06-21 04:24] LABS: ALKALINE PHOSPHATASE 93 U/L (45-117); BILIRUBIN,TOTAL 0.2 mg/dL (0.2-1.0); TOTAL PROTEIN 6.2 g/dL (6.4-8.2)
[2018-06-21] MEDS: OMEPRAZOLE 20 MG CAPSULE.DR PO SCH (05:52)
[2018-06-21 08:32] LABS: FIO2 42 %; O2 FLOW 40 L/min
[2018-06-21] MEDS: NEUTRA PHOS K 250 MG TABLET PO SCH ×3 (08:47→21:13)
[2018-06-21] MEDS: METOPROLOL TARTRATE 50 MG TABLET PO SCH ×2 (08:48→21:13)
[2018-06-21] MEDS: THIAMINE 100MG TABLET PO SCH (08:48)
[2018-06-21] MEDS: FOLIC ACID 1 MG TABLET PO SCH (08:48)
[2018-06-21] MEDS: DIGOXIN 0.25 MG TABLET PO SCH (08:48)
[2018-06-21] MEDS: DILTIAZEM CD 180 MG CAP.ER.24H PO SCH (08:48)
[2018-06-21] MEDS: FUROSEMIDE 40 MG TABLET PO SCH (08:49)
[2018-06-21] MEDS: INSULIN LISPRO 100 UNITS/ML, PEN SQ-INSULIN SCH ×4 (08:50→21:14)
[2018-06-21] MEDS: INSULIN GLARGINE 100 UNITS/ML, PEN SQ-INSULIN SCH ×2 (08:51→21:14)
[2018-06-21] MEDS: BUDESONIDE 0.5 MG/2 ML INHA NPPB SCH ×2 (09:00→20:46)
[2018-06-21] MEDS ORDERED: POTASSIUM CHLORIDE 20 MEQ TAB.ER.PRT PO ONE ×3 (09:00→15:00)
[2018-06-21] MEDS ORDERED: MAGNESIUM SULFATE 3 GM in SODIUM CHLORIDE 0.9% 100 ML IV ONE (09:00)
[2018-06-21] MEDS: APIXABAN 5 MG TABLET PO SCH ×2 (09:07→21:13)
[2018-06-21 09:34] VITALS: BP 132/83
[2018-06-21 12:25] VITALS: BP 132/85
[2018-06-21 14:34] LABS: BASOPHILS % (AUTO) 0 % (0-1); EOSINOPHILS % (AUTO) 0 % (1-7); LYMPHOCYTES # (AUTO) 0.73 x10^3/uL (1-3.4); LYMPHOCYTES % (AUTO) 9 % (22-44); MD NO; MEAN CORPUSCULAR HEMOGLOBIN 27.7 pg (27.0-34.8); MEAN CORPUSCULAR HGB CONC 32.6 g/dL (32.4-35.8); MEAN CORPUSCULAR VOLUME 84.8 fL (80-100); MEAN PLATELET VOLUME 7.9 fL (7.4-10.4); MONOCYTES # (AUTO) 0.32 x10^3/uL (0.2-0.8); MONOCYTES % (AUTO) 4 % (2-9); NEUTROPHILS # (AUTO) 7.52 x10^3/uL (1.8-6.8); NEUTROPHILS % (AUTO) 88 % (42-75); PLATELET COUNT 289 x10^3/uL (130-400); RED BLOOD COUNT 4.32 x10^6/uL (3.82-5.3); RED CELL DISTRIBUTION WIDTH 21.5 % (9.6-15.2)
[2018-06-21 14:40] LABS: ALANINE AMINOTRANSFERASE 52 U/L (12-78); ALBUMIN 2.7 g/dL (3.4-5.0); ANION GAP 7 mmol/L (5-15); CALCIUM 7.4 mg/dL (8.5-10.1); CHLORIDE 92 mmol/L (98-107); CREATININE 0.67 mg/dL (0.55-1.02)
[2018-06-21 14:42] LABS: ALKALINE PHOSPHATASE 97 U/L (45-117); BILIRUBIN,TOTAL 0.2 mg/dL (0.2-1.0); TOTAL PROTEIN 6.4 g/dL (6.4-8.2)
[2018-06-21 17:50] LABS: ANION GAP 7 mmol/L (5-15); CALCIUM 7.4 mg/dL (8.5-10.1); CHLORIDE 91 mmol/L (98-107); CREATININE 0.74 mg/dL (0.55-1.02)
[2018-06-21 18:30] VITALS: BP 129/76
[2018-06-21 21:12] VITALS: BP 136/82
[2018-06-21] MEDS: SIMVASTATIN 40 MG TABLET PO SCH (21:13)
[2018-06-22 01:26] VITALS: BP 163/78
[2018-06-22] MEDS: methylPREDNISolone SOD SUCC 125 MG/2 ML IVPush SCH ×4 (02:07→21:14)
[2018-06-22] MEDS: ALBUTEROL SULFATE 2.5 MG/3 ML NPPB SCH ×4 (02:45→19:45)
[2018-06-22] MEDS: OMEPRAZOLE 20 MG CAPSULE.DR PO SCH (06:14)
[2018-06-22] MEDS: INSULIN LISPRO 100 UNITS/ML, PEN SQ-INSULIN SCH ×7 (07:00→21:12)
[2018-06-22] MEDS: BUDESONIDE 0.5 MG/2 ML INHA NPPB SCH ×2 (07:55→19:45)
[2018-06-22] MEDS ORDERED: POTASSIUM CHLORIDE 20 MEQ TAB.ER.PRT PO ONE ×3 (08:00→11:30)
[2018-06-22] MEDS ORDERED: POTASSIUM CHLORIDE 40 MEQ in SODIUM CHLORIDE 0.9% 500 ML IV ONE (08:00)
[2018-06-22 08:06] VITALS: BP 130/73
[2018-06-22] MEDS: DIGOXIN 0.25 MG TABLET PO SCH (08:51)
[2018-06-22] MEDS: APIXABAN 5 MG TABLET PO SCH ×2 (08:51→21:14)
[2018-06-22] MEDS: FOLIC ACID 1 MG TABLET PO SCH (08:51)
[2018-06-22] MEDS: METOPROLOL TARTRATE 50 MG TABLET PO SCH ×2 (08:51→21:13)
[2018-06-22] MEDS: DILTIAZEM CD 180 MG CAP.ER.24H PO SCH (08:51)
[2018-06-22] MEDS: THIAMINE 100MG TABLET PO SCH (08:51)
[2018-06-22] MEDS: FUROSEMIDE 40 MG TABLET PO SCH (08:52)
[2018-06-22] MEDS: CLINDAMYCIN 300 MG CAPSULE PO SCH ×3 (08:52→21:13)
[2018-06-22] MEDS: INSULIN GLARGINE 100 UNITS/ML, PEN SQ-INSULIN SCH ×2 (08:52→21:12)
[2018-06-22] MEDS: NEUTRA PHOS K 250 MG TABLET PO SCH ×3 (09:05→21:14)
[2018-06-22 14:00] VITALS: BP 132/85
[2018-06-22] MEDS: ACETAMINOPHEN 325 MG TABLET PO PRN (16:35)
[2018-06-22 19:28] VITALS: BP 136/88
[2018-06-22] MEDS: SIMVASTATIN 40 MG TABLET PO SCH (21:13)
[2018-06-23 01:08] VITALS: BP 127/82
[2018-06-23] MEDS: methylPREDNISolone SOD SUCC 125 MG/2 ML IVPush SCH ×4 (02:30→23:05)
[2018-06-23] MEDS: ALBUTEROL SULFATE 2.5 MG/3 ML NPPB SCH ×4 (03:20→19:02)
[2018-06-23 05:01] LABS: ALBUMIN 2.7 g/dL (3.4-5.0); CALCIUM 7.8 mg/dL (8.5-10.1); CHLORIDE 96 mmol/L (98-107)
[2018-06-23 05:05] LABS: ANION GAP 5 mmol/L (5-15); CREATININE 0.52 mg/dL (0.55-1.02)
[2018-06-23] MEDS: OMEPRAZOLE 20 MG CAPSULE.DR PO SCH (05:31)
[2018-06-23 06:58] VITALS: BP 172/99
[2018-06-23] MEDS: INSULIN LISPRO 100 UNITS/ML, PEN SQ-INSULIN SCH ×8 (07:00→21:16)
[2018-06-23] MEDS: BUDESONIDE 0.5 MG/2 ML INHA NPPB SCH ×2 (07:28→19:02)
[2018-06-23] MEDS ORDERED: LORazepam 2 MG/ML, 1ML IVPush PRN (07:30)
[2018-06-23] MEDS ORDERED: POTASSIUM CHLORIDE 20 MEQ TAB.ER.PRT PO ONE ×2 (08:00→11:00)
[2018-06-23] MEDS: INSULIN GLARGINE 100 UNITS/ML, PEN SQ-INSULIN SCH ×2 (08:30→21:17)
[2018-06-23] MEDS: FOLIC ACID 1 MG TABLET PO SCH (08:30)
[2018-06-23] MEDS: DILTIAZEM CD 180 MG CAP.ER.24H PO SCH (08:31)
[2018-06-23] MEDS: DIGOXIN 0.25 MG TABLET PO SCH (08:31)
[2018-06-23] MEDS: CLINDAMYCIN 300 MG CAPSULE PO SCH ×3 (08:31→20:30)
[2018-06-23] MEDS: APIXABAN 5 MG TABLET PO SCH ×2 (08:32→20:30)
[2018-06-23] MEDS: METOPROLOL TARTRATE 50 MG TABLET PO SCH ×2 (08:32→20:30)
[2018-06-23] MEDS: FUROSEMIDE 40 MG TABLET PO SCH (08:32)
[2018-06-23] MEDS: THIAMINE 100MG TABLET PO SCH (08:32)
[2018-06-23 13:05] VITALS: BP 124/68
[2018-06-23] MEDS: ACETAMINOPHEN 325 MG TABLET PO PRN (16:37)
[2018-06-23 19:37] VITALS: BP 159/68
[2018-06-23] MEDS: POTASSIUM CHLORIDE 40 MEQ in SODIUM CHLORIDE 0.9% 500 ML IV ONE ×2 (20:30→23:07)
[2018-06-23] MEDS: SIMVASTATIN 40 MG TABLET PO SCH (20:30)
[2018-06-24 01:16] VITALS: BP 152/64
[2018-06-24] MEDS: ALBUTEROL SULFATE 2.5 MG/3 ML NPPB SCH ×2 (02:50→09:00)
[2018-06-24] MEDS: OMEPRAZOLE 20 MG CAPSULE.DR PO SCH (05:45)
[2018-06-24] MEDS: methylPREDNISolone SOD SUCC 125 MG/2 ML IVPush SCH (05:45)
[2018-06-24 06:56] VITALS: BP 180/90
[2018-06-24] MEDS: INSULIN LISPRO 100 UNITS/ML, PEN SQ-INSULIN SCH ×2 (07:00→09:26)
[2018-06-24] MEDS ORDERED: THIA100T67 PO (07:07)
[2018-06-24] MEDS ORDERED: PRED10TA PO (07:07)
[2018-06-24] MEDS ORDERED: CLIN300C8 PO ×2 (07:16)
[2018-06-24 07:37] LABS: ANION GAP 5 mmol/L (5-15); CALCIUM 8.2 mg/dL (8.5-10.1); CHLORIDE 95 mmol/L (98-107); CREATININE 0.65 mg/dL (0.55-1.02)
[2018-06-24] MEDS: BUDESONIDE 0.5 MG/2 ML INHA NPPB SCH (09:00)
[2018-06-24] MEDS: INSULIN GLARGINE 100 UNITS/ML, PEN SQ-INSULIN SCH (09:26)
[2018-06-24] MEDS: APIXABAN 5 MG TABLET PO SCH (09:27)
[2018-06-24] MEDS: THIAMINE 100MG TABLET PO SCH (09:27)
[2018-06-24] MEDS: CLINDAMYCIN 300 MG CAPSULE PO SCH (09:27)
[2018-06-24] MEDS: METOPROLOL TARTRATE 50 MG TABLET PO SCH (09:27)
[2018-06-24] MEDS: FUROSEMIDE 40 MG TABLET PO SCH (09:27)
[2018-06-24] MEDS: DIGOXIN 0.25 MG TABLET PO SCH (09:27)
[2018-06-24] MEDS: DILTIAZEM CD 180 MG CAP.ER.24H PO SCH (09:27)
[2018-06-24] MEDS ORDERED: LORazepam 2 MG/ML, 1ML IVPush ONE (09:30)
[2018-06-24] MEDS: FOLIC ACID 1 MG TABLET PO SCH (09:44)
[2018-06-24] MEDS ORDERED: CEPH-368 PO (12:48)
== END 2018-06-24 12:20 | disposition home or self-care (01) | DRG 189 ==
LOC: ED 21:32 → EDIP 21:48 → 4WST 06-18 01:42
PROVIDERS: ADMIT Family Medicine; ATTEND Family Medicine
DX: J96.21 Acute and chronic respiratory failure with hypoxia (principal); I50.33 Acute on chronic diastolic (congestive) heart failure; D68.69 Other thrombophilia; J44.1 Chronic obstructive pulmonary disease with (acute) exacerbation; E11.9 Type 2 diabetes mellitus without complications; E66.01 Morbid (severe) obesity due to excess calories; E83.42 Hypomagnesemia; F10.20 Alcohol dependence, uncomplicated; E83.51 Hypocalcemia; F17.210 Nicotine dependence, cigarettes, uncomplicated; I49.5 Sick sinus syndrome; I11.0 Hypertensive heart disease with heart failure; I25.10 Atherosclerotic heart disease of native coronary artery without angina pectoris; I48.91 Unspecified atrial fibrillation; K21.9 Gastro-esophageal reflux disease without esophagitis; Z59.0 Homelessness; Z79.01 Long term (current) use of anticoagulants; Z91.14 Patient's other noncompliance with medication regimen; I25.2 Old myocardial infarction; Z91.19 Patient's noncompliance with other medical treatment and regimen; Z93.3 Colostomy status; Z95.0 Presence of cardiac pacemaker; Z68.36 Body mass index [BMI] 36.0-36.9, adult; Z79.899 Other long term (current) drug therapy
CPT/HCPCS: 36415; 36600; 84145; 96361; 99285; J7121; J7613; J7620; J7626; 71045; 71275; 80048; 80053; 80162; 80307; 81003; 82040; 82330; 82803; 82962; 83036; 83605; 83690; 83735; 83880; 84100; 84484; 85025; 87070; 87077; 87186; 87205; 93005; 94640; 96374; 96375; G0378; J2405; J3411; J3475; J3480; J1815; J2060; J2930; J7030; J7040

== ENCOUNTER → 2018-06-24 | Outpatient (CLI) | payer MEDICAID ==
[~2018-06-24] MED LIST changes: +CEPH-368 PO; +CLIN300C8 PO; +THIA100T67 PO
== END | disposition home or self-care (01) ==
LOC: WOUND 13:19
PROVIDERS: ATTEND Internal Medicine
DX: Z93.3 Colostomy status (principal); E11.65 Type 2 diabetes mellitus with hyperglycemia; I11.0 Hypertensive heart disease with heart failure; I50.43 Acute on chronic combined systolic (congestive) and diastolic (congestive) heart failure; G89.29 Other chronic pain; I48.0 Paroxysmal atrial fibrillation; I48.1 Persistent atrial fibrillation; I48.2 Chronic atrial fibrillation; I25.2 Old myocardial infarction; E78.5 Hyperlipidemia, unspecified; J44.9 Chronic obstructive pulmonary disease, unspecified; K21.9 Gastro-esophageal reflux disease without esophagitis; I25.10 Atherosclerotic heart disease of native coronary artery without angina pectoris; E66.01 Morbid (severe) obesity due to excess calories; Z68.36 Body mass index [BMI] 36.0-36.9, adult; Z88.0 Allergy status to penicillin; Z89.021 Acquired absence of right finger(s); Z79.4 Long term (current) use of insulin; Z79.899 Other long term (current) drug therapy; Z90.710 Acquired absence of both cervix and uterus; Z87.891 Personal history of nicotine dependence; Z88.1 Allergy status to other antibiotic agents; Z79.01 Long term (current) use of anticoagulants; Z90.49 Acquired absence of other specified parts of digestive tract
CPT/HCPCS: 99213

== ENCOUNTER → 2018-07-09 | Outpatient (CLI) | payer MEDICAID ==
[~2018-07-09] MED LIST changes: +MAGN400T7 PO
== END | disposition home or self-care (01) ==
LOC: WOUND 13:22
PROVIDERS: ATTEND Internal Medicine Cardiovascular Disease
DX: Z93.3 Colostomy status (principal); E11.65 Type 2 diabetes mellitus with hyperglycemia; I11.0 Hypertensive heart disease with heart failure; I50.41 Acute combined systolic (congestive) and diastolic (congestive) heart failure; I48.0 Paroxysmal atrial fibrillation; I48.1 Persistent atrial fibrillation; I48.2 Chronic atrial fibrillation; E78.5 Hyperlipidemia, unspecified; I25.2 Old myocardial infarction; G89.29 Other chronic pain; J44.9 Chronic obstructive pulmonary disease, unspecified; K21.9 Gastro-esophageal reflux disease without esophagitis; I25.10 Atherosclerotic heart disease of native coronary artery without angina pectoris; E66.01 Morbid (severe) obesity due to excess calories; Z68.36 Body mass index [BMI] 36.0-36.9, adult; Z88.0 Allergy status to penicillin; Z79.899 Other long term (current) drug therapy; Z87.891 Personal history of nicotine dependence; Z95.0 Presence of cardiac pacemaker; Z89.421 Acquired absence of other right toe(s); Z79.4 Long term (current) use of insulin; Z90.710 Acquired absence of both cervix and uterus; Z89.021 Acquired absence of right finger(s); Z88.1 Allergy status to other antibiotic agents; Z79.01 Long term (current) use of anticoagulants; Z90.49 Acquired absence of other specified parts of digestive tract
CPT/HCPCS: 99213

== ENCOUNTER 2018-07-14 11:34 | Observation (INO) | payer MEDICAID ==
[~2018-07-14] VITALS: Ht 170.2 cm; Wt 105.5 kg
[~2018-07-14 11:34] MED LIST changes: -MAGN400T7 PO
--- NOTE | 2018-07-14 11:46 | NUR ---
pt to ed for generalized weakness, cp, nausea and lack of appetite x "a few days." pt unable to recall medications at this time and is a poor historian. pt connected to monitors. vss. iv established fishing boat captain a ivf started. ivf dc'd upon arrival. edmd present for assessment. ekg complete. awaiting further orders.
[2018-07-14] MEDS ORDERED: ASPIRIN 81 MG TABLET CHEW ONE (11:51)
[2018-07-14] MEDS ORDERED: ASPIRIN 81 MG TABLET CHEW PO ONE (12:00)
[2018-07-14 12:21] LABS: INTERNATIONAL NORMALIZED RATIO 1.29 (0.93-1.1); PROTHROMBIN TIME 13.4 Seconds (9.6-11.5)
--- NOTE | 2018-07-14 12:21 | NUR ---
pt medicated per may. vss on 2l nc. labs complete. cxr complete. pt medicated per may. [facility]
[2018-07-14 12:25] LABS: ALANINE AMINOTRANSFERASE 18 U/L (12-78); ALBUMIN 2.5 g/dL (3.4-5.0); ANION GAP 12 mmol/L (5-15); CALCIUM 7.1 mg/dL (8.5-10.1); CHLORIDE 103 mmol/L (98-107); CREATININE 0.77 mg/dL (0.55-1.02)
[2018-07-14 12:26] LABS: BASOPHILS # (AUTO) 0.03 x10^3/uL (0-0.1); BASOPHILS % (AUTO) 1 % (0-1); EOSINOPHILS % (AUTO) 2 % (1-7); LYMPHOCYTES # (AUTO) 1.89 x10^3/uL (1-3.4); LYMPHOCYTES % (AUTO) 30 % (22-44); MD NO; MEAN CORPUSCULAR VOLUME 84.8 fL (80-100); MEAN PLATELET VOLUME 7.7 fL (7.4-10.4); MONOCYTES # (AUTO) 0.39 x10^3/uL (0.2-0.8); MONOCYTES % (AUTO) 6 % (2-9); NEUTROPHILS # (AUTO) 3.92 x10^3/uL (1.8-6.8); NEUTROPHILS % (AUTO) 62 % (42-75); PLATELET COUNT 392 x10^3/uL (130-400); RED BLOOD COUNT 4.05 x10^6/uL (3.82-5.3); RED CELL DISTRIBUTION WIDTH 17.6 % (9.6-15.2)
[2018-07-14 12:29] LABS: ALKALINE PHOSPHATASE 109 U/L (45-117); BILIRUBIN,TOTAL 0.4 mg/dL (0.2-1.0); TOTAL PROTEIN 5.7 g/dL (6.4-8.2)
--- NOTE | 2018-07-14 12:31 | NUR ---
pt states unable to provide ua sample at this time.
[2018-07-14] MEDS ORDERED: NS + 40MEQ KCL 1,000 ML IV ONE (13:15)
[2018-07-14] MEDS ORDERED: POTASSIUM CHLORIDE 20 MEQ TAB.ER.PRT PO ONE (13:30)
[2018-07-14] MEDS ORDERED: SODIUM CHLORIDE 0.9% 1,000ML IVBOLUS ONE ×2 (13:30)
--- NOTE | 2018-07-14 13:30 | NUR ---
edmd to bs to update on poc.
[2018-07-14] MEDS ORDERED: POTASSIUM CHLORIDE 20 MEQ TAB.ER.PRT ONE (13:58)
--- NOTE | 2018-07-14 14:03 | NUR ---
pt resting in room. vss. no needs expressed.
[2018-07-14 15:42] VITALS: BP 132/88
[2018-07-14 15:50] LABS: MICROSCOPIC AUTO
[2018-07-14 15:51] LABS: CULTURE INDICATED? YES
[2018-07-14 15:58] LABS: AMPHETAMINE SCREEN, URINE Positive (Negative); BARBITURATE SCREEN, URINE Negative (Negative); BENZODIAZEPINE SCREEN, URINE Negative (Negative); CANNABINOID SCREEN, URINE Negative (Negative); COCAINE SCREEN, URINE Negative (Negative); METHADONE SCREEN, URINE Negative (Negative); OPIATE SCREEN, URINE Negative (Negative)
[2018-07-14] MEDS ORDERED: hydrALAzine 20 MG/ML, 1ML IVPush PRN (16:00)
[2018-07-14] MEDS ORDERED: ONDANSETRON 2MG/ML, 2ML IVPush PRN (16:00)
[2018-07-14] MEDS ORDERED: ACETAMINOPHEN 325 MG TABLET PO PRN (16:00)
[2018-07-14] MEDS ORDERED: TEMAZEPAM 15 MG CAPSULE PO PRN (16:00)
[2018-07-14] MEDS: INSULIN LISPRO 100 UNITS/ML, PEN SQ-INSULIN SCH ×2 (16:06→20:27)
[2018-07-14 16:37] LABS: TROPONIN I 0.025 ng/mL (0.000-0.045)
[2018-07-14] MEDS: DIGOXIN 0.25 MG TABLET PO SCH (16:39)
[2018-07-14] MEDS: DILTIAZEM CD 180 MG CAP.ER.24H PO SCH (16:40)
[2018-07-14] MEDS: POTASSIUM CHLORIDE 20 MEQ TAB.ER.PRT PO SCH ×2 (16:40→17:41)
[2018-07-14 18:34] VITALS: BP 122/74
[2018-07-14] MEDS: METOPROLOL TARTRATE 50 MG TABLET PO SCH (20:18)
[2018-07-14] MEDS: APIXABAN 5 MG TABLET PO SCH (20:18)
[2018-07-14] MEDS: INSULIN GLARGINE 100 UNITS/ML, PEN SQ-INSULIN SCH (20:27)
[2018-07-14] MEDS ORDERED: LORazepam 0.5MG TABLET PO ONE (20:30)
[2018-07-14] MEDS ORDERED: METOPROLOL TARTRATE 50 MG TABLET PO SCH (21:00)
[2018-07-14] MEDS ORDERED: SIMVASTATIN 40 MG TABLET PO SCH (21:00)
[2018-07-14 22:09] LABS: TROPONIN I 0.032 ng/mL (0.000-0.045)
[2018-07-15 00:18] VITALS: BP 109/60
[2018-07-15 02:47] LABS: ALANINE AMINOTRANSFERASE 17 U/L (12-78); ALBUMIN 2.3 g/dL (3.4-5.0); ANION GAP 7 mmol/L (5-15); CALCIUM 6.9 mg/dL (8.5-10.1); CHLORIDE 107 mmol/L (98-107)
[2018-07-15 02:50] LABS: ALKALINE PHOSPHATASE 103 U/L (45-117); BILIRUBIN,TOTAL 0.2 mg/dL (0.2-1.0); CREATININE 0.66 mg/dL (0.55-1.02); TOTAL PROTEIN 5.4 g/dL (6.4-8.2); TROPONIN I 0.029 ng/mL (0.000-0.045)
[2018-07-15] MEDS ORDERED: MAGNESIUM SULFATE PMX 4GM/100M 100 ML IV ONE ×2 (06:00→10:00)
[2018-07-15 07:22] VITALS: BP 134/72
[2018-07-15] MEDS: INSULIN LISPRO 100 UNITS/ML, PEN SQ-INSULIN SCH ×3 (08:26→16:23)
[2018-07-15] MEDS ORDERED: REGADENOSON 0.4 MG/5 ML SYRINGE ONE (08:52)
[2018-07-15] MEDS ORDERED: THIAMINE 100MG TABLET PO SCH (09:00)
[2018-07-15] MEDS ORDERED: DIGOXIN 0.25 MG TABLET PO SCH (09:00)
[2018-07-15] MEDS ORDERED: FUROSEMIDE 40 MG TABLET PO SCH (09:00)
[2018-07-15] MEDS ORDERED: OMEPRAZOLE 20 MG CAPSULE.DR PO SCH (09:00)
[2018-07-15] MEDS ORDERED: DILTIAZEM 120 MG CAP.ER.24H PO SCH (09:00)
[2018-07-15] MEDS ORDERED: POTASSIUM CHLORIDE 20 MEQ TAB.ER.PRT PO SCH (09:00)
[2018-07-15] MEDS ORDERED: POTASSIUM PHOSPHATE 44 MEQ in SODIUM CHLORIDE 0.9% 500 ML IV ONE (10:00)
[2018-07-15] MEDS: APIXABAN 5 MG TABLET PO SCH (10:32)
[2018-07-15] MEDS: METOPROLOL TARTRATE 50 MG TABLET PO SCH (10:32)
[2018-07-15] MEDS: INSULIN GLARGINE 100 UNITS/ML, PEN SQ-INSULIN SCH (10:42)
[2018-07-15] MEDS: DIGOXIN 0.25 MG TABLET PO SCH (11:05)
[2018-07-15] MEDS: DILTIAZEM CD 180 MG CAP.ER.24H PO SCH (11:06)
[2018-07-15 14:30] VITALS: BP 122/70
[2018-07-15] MEDS ORDERED: MAGN400T7 PO (16:11)
[2018-07-15] MEDS ORDERED: OMEP-110 PO (16:15)
== END 2018-07-15 18:10 | disposition home or self-care (01) ==
LOC: ED 13:14 → EDIP 13:15 → INTOOBSV 13:15 → ED 13:27 → 5SO 14:31
PROVIDERS: ADMIT Internal Medicine; ATTEND Internal Medicine
DX: R07.89 Other chest pain (principal); E87.6 Hypokalemia; E83.42 Hypomagnesemia; E78.5 Hyperlipidemia, unspecified; E87.2 Acidosis; I48.2 Chronic atrial fibrillation; I11.0 Hypertensive heart disease with heart failure; I50.30 Unspecified diastolic (congestive) heart failure; E11.9 Type 2 diabetes mellitus without complications; D68.69 Other thrombophilia; E83.51 Hypocalcemia; F17.200 Nicotine dependence, unspecified, uncomplicated; I49.5 Sick sinus syndrome; J44.9 Chronic obstructive pulmonary disease, unspecified; Z95.0 Presence of cardiac pacemaker; Z93.3 Colostomy status; Z91.14 Patient's other noncompliance with medication regimen; Z90.710 Acquired absence of both cervix and uterus; Z86.19 Personal history of other infectious and parasitic diseases; Z86.14 Personal history of Methicillin resistant Staphylococcus aureus infection; Z59.0 Homelessness
CPT/HCPCS: 36415; 71045; 78452; 80053; 80307; 81001; 82962; 83605; 83735; 84100; 84484; 85025; 85610; 87086; 93005; 96365; 96366; 96368; 96372; 99284; A9502; C9898; G0378; J1815; J3475; J7030; J7040; J2785

== ENCOUNTER 2018-07-24 15:25 | Emergency (ER) | payer MEDICAID ==
[~2018-07-24] VITALS: Ht 170.2 cm; Wt 103.0 kg
[~2018-07-24 15:25] MED LIST changes: +MAGN400T7 PO
--- NOTE | 2018-07-24 15:30 | NUR ---
LATE ENTRY D/T PATIENT CARE: BREAK RN NOTE; PT BIBA FOR LEFT SIDED CHEST PAIN STARTING THIS AM UPON AWAKENING THIS AM, DENIES RADIATING PAIN. PT ALSO NOTES PRODUCTIVE COUGH X 2 DAYS. REPORT RECEIVED FROM EMS. PT PLACED ON ALL MONITORS. EKG TAKEN ON ARRIVAL BY EDT. CALL LIGHT IN REACH. PT A&O, RESPS EVEN AND UNLABORED. AWAITING MD AND ORDERS AT THIS TIME.
--- NOTE | 2018-07-24 16:08 | NUR ---
PT BIBA FOR LEFT SIDED CHEST PAIN STARTING THIS AM UPON AWAKENING, DENIES RADIATING PAIN. PT ALSO NOTES PRODUCTIVE COUGH X 2 DAYS. APPEARS WELL-PLACED ON MONITOR REPORTS SHE HAS BEEN COMPLIANT W/ RX UPDATED ON POC CALL FRANKS IN HAND/SIDE RAILS UP
--- NOTE | 2018-07-24 16:10 | NUR ---
REPORT GIVEN TO PRIMARY RN DEISY.
--- NOTE | 2018-07-24 16:13 | NUR ---
LAB AT BEDSIDE OBTAINING SPECIMENS PIV DEFERRED PER EXAM/CLARIFIED W/ PROVIDER-AGREEABLE MED RECC COMPLETED-PATIENT REPORTS SHE IS "OUT OF GLARGINE SO I DIDN'T TAKE ANY LAST NIGHT & I ALSO DONT KNOW HOW MUCH I'M SUPPOSED TO TAKE." PROVIDER MADE AWARE
[2018-07-24 16:22] LABS: BASOPHILS # (AUTO) 0.05 x10^3/uL (0-0.1); BASOPHILS % (AUTO) 1 % (0-1); EOSINOPHILS # (AUTO) 0.04 x10^3/uL (0-0.4); EOSINOPHILS % (AUTO) 1 % (1-7); LYMPHOCYTES # (AUTO) 2.38 x10^3/uL (1-3.4); LYMPHOCYTES % (AUTO) 28 % (22-44); MD NO; MEAN CORPUSCULAR HEMOGLOBIN 26.3 pg (27.0-34.8); MEAN CORPUSCULAR HGB CONC 30.8 g/dL (32.4-35.8); MEAN CORPUSCULAR VOLUME 85.3 fL (80-100); MEAN PLATELET VOLUME 7.5 fL (7.4-10.4); MONOCYTES # (AUTO) 0.45 x10^3/uL (0.2-0.8); MONOCYTES % (AUTO) 5 % (2-9); NEUTROPHILS # (AUTO) 5.56 x10^3/uL (1.8-6.8); NEUTROPHILS % (AUTO) 66 % (42-75); PLATELET COUNT 312 x10^3/uL (130-400); RED BLOOD COUNT 4.57 x10^6/uL (3.82-5.3); RED CELL DISTRIBUTION WIDTH 18.1 % (9.6-15.2)
[2018-07-24 16:30] LABS: ALANINE AMINOTRANSFERASE 41 U/L (12-78); ALBUMIN 2.6 g/dL (3.4-5.0); ANION GAP 12 mmol/L (5-15); CALCIUM 7.8 mg/dL (8.5-10.1); CHLORIDE 106 mmol/L (98-107); CREATININE 0.66 mg/dL (0.55-1.02)
[2018-07-24 16:35] LABS: ALKALINE PHOSPHATASE 93 U/L (45-117); BILIRUBIN,TOTAL 0.2 mg/dL (0.2-1.0); TOTAL PROTEIN 6.4 g/dL (6.4-8.2); TROPONIN I 0.018 ng/mL (0.000-0.045)
--- NOTE | 2018-07-24 17:05 | NUR ---
Patient resting comfortably in bed Vitals unchanged on cardiac rehabilitation program director results reviewed-placed for re-check Clarified need for asa w/ provider updated patient on poc
--- NOTE | 2018-07-24 18:31 | NUR ---
TASK RN: FIRST CONTACT WITH PATIENT. Patient/Caregiver given discharge instructions and they have confirmed that they understand the instructions. Patient TO DISCHARGE DESK IN PERSONAL SCOOTER. PT LEFT WITH ALL PERSONAL BELONGINGS.
[2018-07-24 18:32] VITALS: BP 121/71
== END 2018-07-24 18:34 | disposition home or self-care (01) ==
LOC: ED 15:57
DX: J44.1 Chronic obstructive pulmonary disease with (acute) exacerbation (principal); F17.200 Nicotine dependence, unspecified, uncomplicated; I25.2 Old myocardial infarction; I25.10 Atherosclerotic heart disease of native coronary artery without angina pectoris; I50.9 Heart failure, unspecified; I11.0 Hypertensive heart disease with heart failure
CPT/HCPCS: 36415; 71045; 80053; 84484; 85025; 93005; 99284

== ENCOUNTER → 2018-08-26 | Outpatient (CLI) | payer MEDICAID | END | disposition home or self-care (01) | LOC: WOUND 09:32 | PROVIDERS: ATTEND Internal Medicine | DX: Z93.3 Colostomy status (principal); E11.65 Type 2 diabetes mellitus with hyperglycemia; I11.0 Hypertensive heart disease with heart failure; I50.43 Acute on chronic combined systolic (congestive) and diastolic (congestive) heart failure; G89.29 Other chronic pain; I48.0 Paroxysmal atrial fibrillation; I48.1 Persistent atrial fibrillation; I48.2 Chronic atrial fibrillation; I25.2 Old myocardial infarction; E78.5 Hyperlipidemia, unspecified; J44.9 Chronic obstructive pulmonary disease, unspecified; K21.9 Gastro-esophageal reflux disease without esophagitis; I25.10 Atherosclerotic heart disease of native coronary artery without angina pectoris; E66.01 Morbid (severe) obesity due to excess calories; Z68.36 Body mass index [BMI] 36.0-36.9, adult; Z88.0 Allergy status to penicillin; Z89.021 Acquired absence of right finger(s); Z79.4 Long term (current) use of insulin; Z79.899 Other long term (current) drug therapy; Z90.710 Acquired absence of both cervix and uterus; Z87.891 Personal history of nicotine dependence; Z88.1 Allergy status to other antibiotic agents; Z79.01 Long term (current) use of anticoagulants; Z90.49 Acquired absence of other specified parts of digestive tract | CPT/HCPCS: 99213 ==

== ENCOUNTER 2018-09-05 18:28 | Emergency (ER) | payer MEDICAID ==
[~2018-09-05] VITALS: Ht 170.2 cm; Wt 100.0 kg
[2018-09-05 18:31] VITALS: BP 141/90
--- NOTE | 2018-09-05 19:28 | NUR ---
PT GIVEN COLOSTOMY SUPPLIES
--- NOTE | 2018-09-05 20:03 | NUR ---
PT DISCHARGED WITH EXTRA COLOSTOMY SUPPLIES
== END 2018-09-05 20:05 | disposition home or self-care (01) ==
LOC: ED 18:37
DX: K94.23 Gastrostomy malfunction (principal); J44.9 Chronic obstructive pulmonary disease, unspecified; K21.9 Gastro-esophageal reflux disease without esophagitis; I50.9 Heart failure, unspecified; I48.91 Unspecified atrial fibrillation; E11.9 Type 2 diabetes mellitus without complications; I11.0 Hypertensive heart disease with heart failure; I25.2 Old myocardial infarction; I25.10 Atherosclerotic heart disease of native coronary artery without angina pectoris; Z89.029 Acquired absence of unspecified finger(s)
CPT/HCPCS: 99281

== ENCOUNTER 2018-09-10 07:05 | Emergency (ER) | payer MEDICAID ==
[~2018-09-10] VITALS: Ht 170.2 cm; Wt 95.0 kg
[2018-09-10 07:09] VITALS: BP 142/91
[2018-09-10] MEDS ORDERED: ONDANSETRON 2MG/ML, 2ML IVPush ONE (07:30)
[2018-09-10] MEDS ORDERED: HYDROmorphone 2 MG/ML, 1ML IVPush PRN (07:30)
[2018-09-10] MEDS ORDERED: SODIUM CHLORIDE FLUSH 10ML SYR IVF ONE (07:30)
[2018-09-10] MEDS ORDERED: ONDANSETRON 2MG/ML, 2ML ONE (07:41)
[2018-09-10] MEDS ORDERED: HYDROmorphone 2 MG/ML, 1ML ONE (07:41)
[2018-09-10 07:50] LABS: BASOPHILS # (AUTO) 0.06 x10^3/uL (0-0.1); BASOPHILS % (AUTO) 1 % (0-1); EOSINOPHILS # (AUTO) 0.07 x10^3/uL (0-0.4); EOSINOPHILS % (AUTO) 1 % (1-7); LYMPHOCYTES # (AUTO) 2.24 x10^3/uL (1-3.4); LYMPHOCYTES % (AUTO) 24 % (22-44); MD NO; MEAN CORPUSCULAR HEMOGLOBIN 26.2 pg (27.0-34.8); MEAN CORPUSCULAR HGB CONC 31.9 g/dL (32.4-35.8); MEAN CORPUSCULAR VOLUME 82.3 fL (80-100); MEAN PLATELET VOLUME 7.5 fL (7.4-10.4); MONOCYTES # (AUTO) 0.59 x10^3/uL (0.2-0.8); MONOCYTES % (AUTO) 6 % (2-9); NEUTROPHILS # (AUTO) 6.58 x10^3/uL (1.8-6.8); NEUTROPHILS % (AUTO) 69 % (42-75); PLATELET COUNT 401 x10^3/uL (130-400); RED BLOOD COUNT 4.82 x10^6/uL (3.82-5.3); RED CELL DISTRIBUTION WIDTH 18.7 % (9.6-15.2)
[2018-09-10] MEDS ORDERED: METF500T17 PO (07:50)
[2018-09-10] MEDS ORDERED: GLIP10TA13 PO (07:51)
[2018-09-10] MEDS ORDERED: DIGO125T PO (07:52)
[2018-09-10 08:00] LABS: ALANINE AMINOTRANSFERASE 36 U/L (12-78); ALBUMIN 3.3 g/dL (3.4-5.0); ANION GAP 8 mmol/L (5-15); CHLORIDE 102 mmol/L (98-107); CREATININE 0.62 mg/dL (0.55-1.02)
[2018-09-10 08:02] LABS: ALKALINE PHOSPHATASE 101 U/L (45-117); BILIRUBIN,TOTAL 0.4 mg/dL (0.2-1.0); TOTAL PROTEIN 7.7 g/dL (6.4-8.2)
[2018-09-10 09:35] LABS: CULTURE INDICATED? YES; MICROSCOPIC AUTO
[2018-09-10] MEDS ORDERED: OMNIPAQUE 350 MG/ML, 100ML BOTTLE ONE (11:20)
--- NOTE | 2018-09-10 12:12 | NUR ---
Patient/Caregiver given discharge instructions and they have confirmed that they understand the instructions. Patient ambulatory with steady gait.
== END 2018-09-10 12:13 | disposition home or self-care (01) ==
LOC: ED 07:32
DX: R10.84 Generalized abdominal pain (principal); I25.2 Old myocardial infarction; I25.10 Atherosclerotic heart disease of native coronary artery without angina pectoris; I50.9 Heart failure, unspecified; I11.0 Hypertensive heart disease with heart failure; E11.65 Type 2 diabetes mellitus with hyperglycemia; K21.9 Gastro-esophageal reflux disease without esophagitis; J44.9 Chronic obstructive pulmonary disease, unspecified; Z88.0 Allergy status to penicillin
CPT/HCPCS: 36415; 74022; 74177; 80053; 81001; 83690; 85025; 87086; 96374; 96375; 99284; J1170; J2405; Q9967

== ENCOUNTER 2018-09-20 08:39 | Emergency (ER) | payer MEDICAID ==
[~2018-09-20] VITALS: Ht 170.2 cm; Wt 90.0 kg
[~2018-09-20 08:39] MED LIST changes: +GLIP10TA13 PO; +METF500T17 PO
[2018-09-20] MEDS ORDERED: HYDROcodone/APAP 5/325 TABLET ONE (09:30)
[2018-09-20] MEDS ORDERED: HYDROcodone/APAP 5/325 TABLET PO ONE (09:30)
[2018-09-20 09:40] LABS: BASOPHILS # (AUTO) 0.08 x10^3/uL (0-0.1); BASOPHILS % (AUTO) 1 % (0-1); EOSINOPHILS # (AUTO) 0.09 x10^3/uL (0-0.4); EOSINOPHILS % (AUTO) 1 % (1-7); LYMPHOCYTES # (AUTO) 1.95 x10^3/uL (1-3.4); LYMPHOCYTES % (AUTO) 26 % (22-44); MD NO; MEAN CORPUSCULAR HEMOGLOBIN 25.8 pg (27.0-34.8); MEAN CORPUSCULAR VOLUME 80.6 fL (80-100); MEAN PLATELET VOLUME 8.1 fL (7.4-10.4); MONOCYTES # (AUTO) 0.46 x10^3/uL (0.2-0.8); MONOCYTES % (AUTO) 6 % (2-9); NEUTROPHILS # (AUTO) 5.05 x10^3/uL (1.8-6.8); NEUTROPHILS % (AUTO) 66 % (42-75); PLATELET COUNT 273 x10^3/uL (130-400); RED BLOOD COUNT 4.33 x10^6/uL (3.82-5.3); RED CELL DISTRIBUTION WIDTH 18.3 % (9.6-15.2)
[2018-09-20] MEDS ORDERED: CEFAZOLIN 1,000 MG IM ONE (10:00)
[2018-09-20 10:09] LABS: ALBUMIN 3.1 g/dL (3.4-5.0); ANION GAP 12 mmol/L (5-15); CALCIUM 8.6 mg/dL (8.5-10.1); CHLORIDE 105 mmol/L (98-107); CREATININE 0.55 mg/dL (0.55-1.02)
[2018-09-20] MEDS ORDERED: CEFAZOLIN 1,000 MG ONE (10:14)
[2018-09-20 10:26] LABS: ALANINE AMINOTRANSFERASE 30 U/L (12-78); ALKALINE PHOSPHATASE 86 U/L (45-117); BILIRUBIN,TOTAL 0.4 mg/dL (0.2-1.0); TOTAL PROTEIN 6.9 g/dL (6.4-8.2)
[2018-09-20 10:37] VITALS: BP 126/77
== END 2018-09-20 11:29 | disposition home or self-care (01) ==
LOC: ED 10:15
DX: L03.011 Cellulitis of right finger (principal); I25.2 Old myocardial infarction; I25.10 Atherosclerotic heart disease of native coronary artery without angina pectoris; E11.9 Type 2 diabetes mellitus without complications; I48.91 Unspecified atrial fibrillation; I50.9 Heart failure, unspecified; I11.0 Hypertensive heart disease with heart failure; K21.9 Gastro-esophageal reflux disease without esophagitis; J44.9 Chronic obstructive pulmonary disease, unspecified; Z89.021 Acquired absence of right finger(s)
CPT/HCPCS: 36415; 73130; 80053; 85025; 96372; 99284; J0690

== ENCOUNTER 2018-09-22 18:26 | Emergency (ER) | payer MEDICAID ==
[~2018-09-22] VITALS: Ht 170.2 cm; Wt 100.6 kg
[2018-09-22 21:18] VITALS: BP 121/68
== END 2018-09-22 22:41 | disposition home or self-care (01) ==
LOC: ED 20:32 → EDIP 21:03 → UNDOADMIN 21:03 → ED 22:41
DX: R10.12 Left upper quadrant pain (principal); R10.32 Left lower quadrant pain; J44.9 Chronic obstructive pulmonary disease, unspecified; I11.0 Hypertensive heart disease with heart failure; I50.9 Heart failure, unspecified; E11.9 Type 2 diabetes mellitus without complications; F17.200 Nicotine dependence, unspecified, uncomplicated; I48.91 Unspecified atrial fibrillation; I25.2 Old myocardial infarction; I25.10 Atherosclerotic heart disease of native coronary artery without angina pectoris
CPT/HCPCS: 36415; 74177; 80053; 80307; 81003; 83605; 83690; 85025; 87040; 96374; 96375; 99284; J1170; J2405; Q9967

== ENCOUNTER 2018-09-27 15:39 | Inpatient (IN) | payer MEDICAID ==
[~2018-09-27] VITALS: Ht 167.6 cm; Wt 99.9 kg
[~2018-09-27 15:39] MED LIST changes: -GUAI200T3 PO; +GUAI200T37 PO
--- NOTE | 2018-09-27 15:56 | NUR ---
PT BIB EMS FROM [facility] FOR ALTERED BEHAVIOR AND NOT FEELING WELL. PT WAS FOUND DOWN. ON ARRIVAL PT WAS HYPOXIC AND NEEDING SOME 02. PT AT THAT TIME WAS FOUND TO BE IN AFIBB RVR ON SCENE. PT ON ARRIVAL WAS CONNECTED TO ALL MONITORS AND CALL LIGHT IN REACH. PT HAS CALL LIGHT IN REACH AND FALL PREVENTIONS MEASURES IN PLACE. AWAITING FURTHER ORDERS.
--- NOTE | 2018-09-27 16:18 | NUR ---
XRAY IN ROOM.
[2018-09-27] MEDS ORDERED: SODIUM CHLORIDE FLUSH 10ML SYR IVF ONE (16:30)
[2018-09-27] MEDS ORDERED: LORazepam 2 MG/ML, 1ML IVPush ONE (16:30)
[2018-09-27] MEDS ORDERED: LORazepam 2 MG/ML, 1ML ONE (16:37)
--- NOTE | 2018-09-27 16:47 | NUR ---
pt given iv ativan
--- NOTE | 2018-09-27 16:54 | NUR ---
LAB UNABLE TO FIND BLOOD FOR PATIENT AT THIS TIME. PT TO HAVE REDRAW BY LAB.
[2018-09-27 17:13] LABS: BASOPHILS # (AUTO) 0.01 x10^3/uL (0-0.1); BASOPHILS % (AUTO) 0 % (0-1); EOSINOPHILS # (AUTO) 0.08 x10^3/uL (0-0.4); EOSINOPHILS % (AUTO) 1 % (1-7); LYMPHOCYTES # (AUTO) 1.37 x10^3/uL (1-3.4); LYMPHOCYTES % (AUTO) 18 % (22-44); MD NO; MEAN CORPUSCULAR HEMOGLOBIN 26.9 pg (27.0-34.8); MEAN CORPUSCULAR HGB CONC 32.8 g/dL (32.4-35.8); MEAN CORPUSCULAR VOLUME 81.8 fL (80-100); MEAN PLATELET VOLUME 8.2 fL (7.4-10.4); MONOCYTES # (AUTO) 0.41 x10^3/uL (0.2-0.8); MONOCYTES % (AUTO) 5 % (2-9); NEUTROPHILS # (AUTO) 5.81 x10^3/uL (1.8-6.8); NEUTROPHILS % (AUTO) 76 % (42-75); PLATELET COUNT 270 x10^3/uL (130-400); RED BLOOD COUNT 3.74 x10^6/uL (3.82-5.3); RED CELL DISTRIBUTION WIDTH 18.5 % (9.6-15.2)
[2018-09-27 17:25] LABS: ALBUMIN 3.2 g/dL (3.4-5.0); ANION GAP 7 mmol/L (5-15); CALCIUM 8.5 mg/dL (8.5-10.1); CHLORIDE 107 mmol/L (98-107); CREATININE 0.54 mg/dL (0.55-1.02)
[2018-09-27 17:29] LABS: TROPONIN I < 0.015 ng/mL (0.000-0.045)
[2018-09-27] MEDS ORDERED: APIXABAN 5 MG TABLET PO ONE (18:30)
[2018-09-27] MEDS ORDERED: DIGOXIN 0.125 MG TABLET PO ONE (18:30)
[2018-09-27] MEDS ORDERED: METOPROLOL TARTRATE 50 MG TABLET PO ONE (18:30)
[2018-09-27] MEDS ORDERED: DILTIAZEM 5 MG/ML, 5ML IVPush ONE (18:30)
[2018-09-27] MEDS ORDERED: METOPROLOL TARTRATE 50 MG TABLET ONE (18:40)
[2018-09-27] MEDS ORDERED: DILTIAZEM 5 MG/ML, 5ML ONE (18:41)
[2018-09-27] MEDS ORDERED: APIXABAN 5 MG TABLET ONE (18:41)
--- NOTE | 2018-09-27 18:57 | NUR ---
signifigant othr present in room. iv Rx meds given. pt given a blanket. pt's speach is non coherent, mumbling.
--- NOTE | 2018-09-27 19:10 | NUR ---
PTS SIGNIFICANT OTHER CAME OUT OF ROOM INSISTING AN RN RUN INTO THE ROOM TO HELP HIS GO TO THE RESTROOM. EARLIER TODAY THE PT WAS WALKING WITHOUT DISTRESS TO RESTROOM AND ABLE TO WALK WITHOUT ASSITANCE. PT WITH AT BEDSIDE BEGAN KICKING LEGS AND CRYING SAYING THE NURSES ARE BEING MEAN TO ME. THIS RN WAS ENCOURAGING PT TO WALK TO RESTROOM SHE DID BEFORE. RN THEN TOLD HER ITS OKAY IF YOU CANT WE CAN USE A BED STANLEY. PT THEN STARTED KICKING HER LEGS AND SAYING I WANT TO GO HOME I DONT WANT THIS. PT WAS TOLD SHE IS ALLOWED TO LEAVE THAT IS HER DECISION. PT THEN CALMED DOWN ENOUGH TO ROLL HER OVER TO PLACE BED STANLEY UNDERNEATH. THEN RN REMAINED IN THE ROOM AND PT BEGAN SHOUTING "STOP RUSHING ME, I HATE WHEN YOU NICOLE ME" RN WAS NOT SAYING ANYTHING. PT WAS TOLD "IM STAYING IN THE ROOM SO I CAN HELP YOU OFF THE BED STANLEY DIAZ SO WE CAN PREVENT SKIN BREAKDOWN OR INJURY. PT BECAME FRANTIC AND SAYING "FUCK THEY ARE SO RUDE TO ME THEY HAVE BEEN MEAN TO ME ALL DAY LIKE THIS" PT THEN HAD BP CUFF GO OFF AND PT STARTED SCREAMING AND YELLING THAT WE WERE CUTTING HER ARM OFF. THE BP CUFF HAS BEEN ON THE PATIENT SINCE ARRIVAL ON [id number] VITALS PER PROTOCOL AND PT HAD NO ISSUE UNTIL ARRIVED. SAID UPON HIS ARRIVAL HE SWITCHED PTS COLOSTOMY BAG. PT REFUSED TO GO TO RESTROOM "BECUASE SHE DIDNT NEED TO GO AT THIS TIME, DESPITE MINUTES BEFORE YELLING AT RN TO HURRY TO HELP HER TO THE RESTROOM". THIS RN LEFT ROOM AND EXPLAINED TO PT PLEASE CALL WHEN DONE USING THE BED STANLEY SO WE CAN REMOVE IT AND HELP HER CLEAN. PT TOLD TO PLEASE USE CALL LIGHT. PT REMAINS ON BEDPAN AND DOES NOT WANT TO BE TAKEN OFF YET.
[2018-09-27] MEDS ORDERED: DILTIAZEM 5 MG/ML, 5ML IV ONE ×2 (19:30)
--- NOTE | 2018-09-27 19:42 | NUR ---
S/O GIVEN A CUP OF ICE UPON REQUEST. PT IS RESTING NICELY.
--- NOTE | 2018-09-27 19:57 | NUR ---
S/O stepped outside to go smoke
--- NOTE | 2018-09-27 20:00 | NUR ---
VSS. will cont to monitorpt not willing to open her eyes or able to keep eyes open. pt's speach is mummbled. pt states it is may 2015, this is a hospital. "the season is "cold" as this is May." pt falls back to sleep. pt is covered with 2 blankets. NC O2 in place and placed on single stroke preformer.
--- NOTE | 2018-09-27 20:18 | NUR ---
report given to RN ESVIN, going to room 503.
--- NOTE | 2018-09-27 20:27 | NUR ---
pt transported upstairs to her room on a manager monitoring and 2 techs. pt's belongings (WC with blue shopping bag attached, green backpack and white/pinkish bag)
[2018-09-27 20:53] VITALS: BP 124/87
[2018-09-27] MEDS ORDERED: ONDANSETRON ODT 4 MG PO PRN (21:30)
[2018-09-27] MEDS ORDERED: ACETAMINOPHEN 325 MG TABLET PO PRN (21:30)
[2018-09-27] MEDS ORDERED: hydrALAzine 20 MG/ML, 1ML IVPush PRN (21:30)
[2018-09-27] MEDS ORDERED: morphine SULFATE 10 MG/ML, 1ML IVPush PRN (21:30)
[2018-09-27] MEDS ORDERED: ONDANSETRON 2MG/ML, 2ML IVPush PRN (21:30)
[2018-09-27] MEDS ORDERED: DOCUSATE 100 MG CAPSULE PO PRN (21:30)
[2018-09-27] MEDS ORDERED: BISACODYL 10 MG SUPP PR PRN (21:30)
[2018-09-27] MEDS ORDERED: SODIUM CHLORIDE 0.9% 1,000 ML IV SCH (21:30)
[2018-09-27] MEDS ORDERED: LABETALOL 5MG/ML, 20ML IVPush PRN (21:30)
[2018-09-27] MEDS ORDERED: POLYETHYLENE GLYCOL 17 GM PACKET PO PRN (21:30)
[2018-09-27] MEDS ORDERED: PROMETHAZINE 25 MG/ML, 1ML IM PRN (21:30)
[2018-09-27] MEDS ORDERED: POTASSIUM CHLORIDE 40 MEQ in SODIUM CHLORIDE 0.9% 500 ML IV ONE (22:00)
[2018-09-27] MEDS ORDERED: ALBUTEROL/IPRATROPIUM 2.5MG/0.5MG, 3 ML NPPB PRN (22:00)
[2018-09-27 22:07] LABS: HEMOGLOBIN A1C 7.4 % (4.2-6.3)
[2018-09-27] MEDS: DOXYCYCLINE 100MG TABLET PO SCH (22:22)
[2018-09-27] MEDS: APIXABAN 5 MG TABLET PO SCH (22:22)
[2018-09-27] MEDS: METOPROLOL TARTRATE 50 MG TABLET PO SCH (22:22)
[2018-09-27] MEDS: SIMVASTATIN 40 MG TABLET PO SCH (22:22)
[2018-09-27] MEDS ORDERED: ALBUTEROL/IPRATROPIUM 2.5MG/0.5MG, 3 ML ONE (22:33)
[2018-09-27] MEDS: BUDESONIDE 0.5 MG/2 ML INHA NPPB SCH (22:40)
[2018-09-27] MEDS: ALBUTEROL SULFATE 2.5MG/0.5ML NPPB SCH (22:40)
[2018-09-28 02:05] VITALS: BP 134/86
[2018-09-28 05:15] LABS: BASOPHILS # (AUTO) 0.02 x10^3/uL (0-0.1); BASOPHILS % (AUTO) 0 % (0-1); EOSINOPHILS # (AUTO) 0.13 x10^3/uL (0-0.4); EOSINOPHILS % (AUTO) 2 % (1-7); LYMPHOCYTES # (AUTO) 1.72 x10^3/uL (1-3.4); LYMPHOCYTES % (AUTO) 26 % (22-44); MD NO; MEAN CORPUSCULAR HEMOGLOBIN 26.6 pg (27.0-34.8); MEAN PLATELET VOLUME 8.2 fL (7.4-10.4); MONOCYTES # (AUTO) 0.52 x10^3/uL (0.2-0.8); MONOCYTES % (AUTO) 8 % (2-9); NEUTROPHILS # (AUTO) 4.33 x10^3/uL (1.8-6.8); NEUTROPHILS % (AUTO) 64 % (42-75); PLATELET COUNT 277 x10^3/uL (130-400); RED BLOOD COUNT 4.02 x10^6/uL (3.82-5.3); RED CELL DISTRIBUTION WIDTH 19.4 % (9.6-15.2)
[2018-09-28 05:26] LABS: ALANINE AMINOTRANSFERASE 26 U/L (12-78); ANION GAP 6 mmol/L (5-15); CALCIUM 8.5 mg/dL (8.5-10.1); CHLORIDE 109 mmol/L (98-107); CHOLESTEROL, TOTAL 113 mg/dL (140-239); CREATININE 0.58 mg/dL (0.55-1.02); TRIGLYCERIDES 138 mg/dL (50-200); VLDL CHOLESTEROL 28 mg/dL (0-25)
[2018-09-28 05:28] LABS: ALKALINE PHOSPHATASE 94 U/L (45-117); BILIRUBIN,TOTAL 0.6 mg/dL (0.2-1.0); CHOL/HDL RATIO 5.4; HDL CHOL % 19 % (28-40); HDL CHOLESTEROL (DIRECT) 21 mg/dL (40-60); LDL CHOLESTEROL,CALCULATED 64 mg/dL (54-169); TOTAL PROTEIN 6.5 g/dL (6.4-8.2)
[2018-09-28] MEDS ORDERED: LORazepam 1MG TABLET PO PRN ×4 (09:00)
[2018-09-28] MEDS ORDERED: LORazepam 2 MG/ML, 1ML IV PRN ×5 (09:00)
[2018-09-28] MEDS ORDERED: LORazepam 0.5MG TABLET PO PRN (09:00)
[2018-09-28] MEDS ORDERED: DILTIAZEM CD 180 MG CAP.ER.24H PO SCH (09:00)
[2018-09-28] MEDS: ALBUTEROL SULFATE 2.5MG/0.5ML NPPB SCH ×3 (09:07→22:46)
[2018-09-28] MEDS: BUDESONIDE 0.5 MG/2 ML INHA NPPB SCH ×2 (09:08→22:45)
[2018-09-28] MEDS: APIXABAN 5 MG TABLET PO SCH ×2 (09:32→20:36)
[2018-09-28] MEDS: OMEPRAZOLE 20 MG CAPSULE.DR PO SCH ×2 (09:32→20:36)
[2018-09-28] MEDS: DOXYCYCLINE 100MG TABLET PO SCH ×2 (09:33→20:36)
[2018-09-28] MEDS: DIGOXIN 0.125 MG TABLET PO SCH (09:33)
[2018-09-28] MEDS: METOPROLOL TARTRATE 50 MG TABLET PO SCH ×2 (09:33→20:37)
[2018-09-28] MEDS: MAGNESIUM OXIDE 400 MG TABLET PO SCH ×2 (09:33→20:36)
[2018-09-28] MEDS: OXYcodone IR 5MG TABLET PO PRN ×2 (09:44→20:36)
[2018-09-28 10:08] VITALS: BP 127/83
[2018-09-28 12:26] VITALS: BP 112/72
[2018-09-28 13:28] VITALS: BP 112/73
[2018-09-28] MEDS ORDERED: DEXTROSE 4 GM TAB.CHEW PO PRN (15:30)
[2018-09-28] MEDS ORDERED: GLUCAGON 1 MG IM PRN (15:30)
[2018-09-28] MEDS ORDERED: DEXTROSE 50%, 50ML SYRINGE IVPush PRN (15:30)
[2018-09-28] MEDS: INSULIN LISPRO 100 UNITS/ML, PEN SQ-INSULIN SCH ×2 (17:03→20:38)
[2018-09-28] MEDS: methylPREDNISolone SOD SUCC 125 MG/2 ML IVPush SCH ×2 (17:04→23:08)
[2018-09-28 20:22] VITALS: BP 162/94
[2018-09-28] MEDS: SIMVASTATIN 40 MG TABLET PO SCH (20:37)
[2018-09-28] MEDS: SODIUM CHLORIDE FLUSH 10ML SYR IVF SCH (20:37)
[2018-09-28] MEDS ORDERED: ALBUTEROL SULFATE 2.5 MG/3 ML ONE (20:58)
[2018-09-29 01:35] VITALS: BP 147/91
[2018-09-29] MEDS: ALBUTEROL SULFATE 2.5MG/0.5ML NPPB SCH ×4 (03:47→22:00)
[2018-09-29] MEDS: methylPREDNISolone SOD SUCC 125 MG/2 ML IVPush SCH (04:14)
[2018-09-29 05:05] LABS: BASOPHILS # (AUTO) 0.02 x10^3/uL (0-0.1); BASOPHILS % (AUTO) 0 % (0-1); EOSINOPHILS % (AUTO) 0 % (1-7); LYMPHOCYTES # (AUTO) 0.82 x10^3/uL (1-3.4); LYMPHOCYTES % (AUTO) 10 % (22-44); MD NO; MEAN CORPUSCULAR HEMOGLOBIN 26.5 pg (27.0-34.8); MEAN CORPUSCULAR HGB CONC 31.7 g/dL (32.4-35.8); MEAN CORPUSCULAR VOLUME 83.6 fL (80-100); MEAN PLATELET VOLUME 8.3 fL (7.4-10.4); MONOCYTES # (AUTO) 0.07 x10^3/uL (0.2-0.8); MONOCYTES % (AUTO) 1 % (2-9); NEUTROPHILS # (AUTO) 7.54 x10^3/uL (1.8-6.8); NEUTROPHILS % (AUTO) 89 % (42-75); PLATELET COUNT 285 x10^3/uL (130-400); RED BLOOD COUNT 4.16 x10^6/uL (3.82-5.3); RED CELL DISTRIBUTION WIDTH 19.6 % (9.6-15.2)
[2018-09-29 05:10] LABS: CHLORIDE 105 mmol/L (98-107)
[2018-09-29 05:16] LABS: ALANINE AMINOTRANSFERASE 25 U/L (12-78); ALBUMIN 3.1 g/dL (3.4-5.0); ALKALINE PHOSPHATASE 101 U/L (45-117); ANION GAP 7 mmol/L (5-15); BILIRUBIN,TOTAL 0.5 mg/dL (0.2-1.0); CALCIUM 8.5 mg/dL (8.5-10.1); CREATININE 0.55 mg/dL (0.55-1.02); TOTAL PROTEIN 7.1 g/dL (6.4-8.2)
[2018-09-29 07:53] VITALS: BP 168/78
[2018-09-29] MEDS: SODIUM CHLORIDE 0.9% 1,000 ML IV SCH ×2 (08:30→22:48)
[2018-09-29] MEDS ORDERED: ACETAMINOPHEN 325 MG TABLET PO PRN (08:30)
[2018-09-29] MEDS: INSULIN LISPRO 100 UNITS/ML, PEN SQ-INSULIN SCH ×4 (09:01→22:12)
[2018-09-29] MEDS: SODIUM CHLORIDE FLUSH 10ML SYR IVF SCH ×2 (09:01→22:04)
[2018-09-29] MEDS: DOXYCYCLINE 100MG TABLET PO SCH ×2 (09:02→22:03)
[2018-09-29] MEDS: DIGOXIN 0.125 MG TABLET PO SCH (09:02)
[2018-09-29] MEDS: APIXABAN 5 MG TABLET PO SCH ×2 (09:05→22:03)
[2018-09-29] MEDS: LACTOBACILLUS CHEW TABLET PO SCH ×3 (09:05→22:03)
[2018-09-29] MEDS: OMEPRAZOLE 20 MG CAPSULE.DR PO SCH ×2 (09:05→22:03)
[2018-09-29] MEDS: OXYcodone IR 5MG TABLET PO PRN ×2 (09:18→16:57)
[2018-09-29] MEDS: BUDESONIDE 0.5 MG/2 ML INHA NPPB SCH ×2 (09:45→17:00)
[2018-09-29 13:32] LABS: AMPHETAMINE SCREEN, URINE Positive (Negative); BARBITURATE SCREEN, URINE Negative (Negative); BENZODIAZEPINE SCREEN, URINE Negative (Negative); CANNABINOID SCREEN, URINE Negative (Negative); COCAINE SCREEN, URINE Negative (Negative); METHADONE SCREEN, URINE Negative (Negative); OPIATE SCREEN, URINE Negative (Negative)
[2018-09-29 14:00] VITALS: BP 147/48
[2018-09-29 18:17] VITALS: BP 169/79
[2018-09-29] MEDS: CARVEDILOL 6.25 MG TABLET PO SCH (18:19)
[2018-09-29 21:13] VITALS: BP 126/88
[2018-09-29] MEDS: SIMVASTATIN 40 MG TABLET PO SCH (22:03)
[2018-09-30 02:06] VITALS: BP 125/82
[2018-09-30] MEDS: ALBUTEROL SULFATE 2.5MG/0.5ML NPPB SCH (03:00)
[2018-09-30 05:58] VITALS: BP 134/91
[2018-09-30] MEDS: CARVEDILOL 6.25 MG TABLET PO SCH (06:02)
[2018-09-30 08:00] VITALS: BP 139/86
[2018-09-30] MEDS: INSULIN LISPRO 100 UNITS/ML, PEN SQ-INSULIN SCH ×2 (08:51→11:20)
[2018-09-30] MEDS: APIXABAN 5 MG TABLET PO SCH (08:51)
[2018-09-30] MEDS: LACTOBACILLUS CHEW TABLET PO SCH (08:51)
[2018-09-30] MEDS: OMEPRAZOLE 20 MG CAPSULE.DR PO SCH (08:51)
[2018-09-30] MEDS: DIGOXIN 0.125 MG TABLET PO SCH (08:52)
[2018-09-30] MEDS: DOXYCYCLINE 100MG TABLET PO SCH (08:52)
[2018-09-30] MEDS: SODIUM CHLORIDE FLUSH 10ML SYR IVF SCH (08:52)
[2018-09-30] MEDS: OXYcodone IR 5MG TABLET PO PRN (08:52)
[2018-09-30] MEDS: BUDESONIDE 0.5 MG/2 ML INHA NPPB SCH (09:00)
[2018-09-30] MEDS ORDERED: OMEP-110 PO (11:01)
[2018-09-30] MEDS ORDERED: METF1000 PO (11:01)
[2018-09-30] MEDS ORDERED: ACID1TAB7 PO (11:01)
[2018-09-30] MEDS ORDERED: CARV6.2512 PO (11:01)
[2018-09-30 12:32] VITALS: BP 146/68
== END 2018-09-30 12:42 | disposition home or self-care (01) | DRG 133 ==
LOC: ED 16:12 → EDIP 19:23 → 5SO 21:00
PROVIDERS: ADMIT Internal Medicine; ATTEND Internal Medicine
DX: J96.01 Acute respiratory failure with hypoxia (principal); D68.69 Other thrombophilia; E44.0 Moderate protein-calorie malnutrition; E11.65 Type 2 diabetes mellitus with hyperglycemia; E66.01 Morbid (severe) obesity due to excess calories; I50.9 Heart failure, unspecified; I11.0 Hypertensive heart disease with heart failure; I49.5 Sick sinus syndrome; I48.0 Paroxysmal atrial fibrillation; D64.9 Anemia, unspecified; Z68.35 Body mass index [BMI] 35.0-35.9, adult; E78.5 Hyperlipidemia, unspecified; E87.6 Hypokalemia; F10.10 Alcohol abuse, uncomplicated; F15.10 Other stimulant abuse, uncomplicated; F17.200 Nicotine dependence, unspecified, uncomplicated; G47.00 Insomnia, unspecified; I25.10 Atherosclerotic heart disease of native coronary artery without angina pectoris; J44.1 Chronic obstructive pulmonary disease with (acute) exacerbation; K21.9 Gastro-esophageal reflux disease without esophagitis; Z59.0 Homelessness; Z79.01 Long term (current) use of anticoagulants; Z86.14 Personal history of Methicillin resistant Staphylococcus aureus infection; Z86.19 Personal history of other infectious and parasitic diseases; Z90.710 Acquired absence of both cervix and uterus; I25.2 Old myocardial infarction; Z91.14 Patient's other noncompliance with medication regimen; Z93.3 Colostomy status; Z95.0 Presence of cardiac pacemaker; Z88.0 Allergy status to penicillin; Z88.8 Allergy status to other drugs, medicaments and biological substances; Z89.021 Acquired absence of right finger(s); Z71.6 Tobacco abuse counseling; Z71.41 Alcohol abuse counseling and surveillance of alcoholic
CPT/HCPCS: 36415; 71045; 74021; 80048; 80053; 80061; 80162; 80307; 82040; 82962; 83036; 83735; 84100; 84439; 84443; 84484; 85025; 93005; 93306; 94640; 96374; 96375; 99291; G0378; J3480; J7611; J7626; J1815; J2060; J2930; J7030; J7040

== ENCOUNTER 2018-12-23 11:38 | Emergency (ER) | payer MEDICAID ==
[~2018-12-23] VITALS: Ht 170.2 cm; Wt 92.7 kg
[~2018-12-23 11:38] MED LIST changes: +ACID1TAB7 PO; +CARV6.2512 PO; +METF1000 PO
[2018-12-23] MEDS ORDERED: DILT360C26 PO (12:34)
[2018-12-23 12:56] LABS: BASOPHILS # (AUTO) 0.02 x10^3/uL (0-0.1); BASOPHILS % (AUTO) 0 % (0-1); EOSINOPHILS # (AUTO) 0.13 x10^3/uL (0-0.4); EOSINOPHILS % (AUTO) 1 % (1-7); LYMPHOCYTES # (AUTO) 2.06 x10^3/uL (1-3.4); LYMPHOCYTES % (AUTO) 22 % (22-44); MD NO; MEAN CORPUSCULAR HEMOGLOBIN 28.9 pg (27.0-34.8); MEAN CORPUSCULAR VOLUME 87.5 fL (80-100); MEAN PLATELET VOLUME 8.5 fL (7.4-10.4); MONOCYTES # (AUTO) 0.42 x10^3/uL (0.2-0.8); MONOCYTES % (AUTO) 5 % (2-9); NEUTROPHILS # (AUTO) 6.67 x10^3/uL (1.8-6.8); NEUTROPHILS % (AUTO) 72 % (42-75); PLATELET COUNT 218 x10^3/uL (130-400); RED BLOOD COUNT 4.58 x10^6/uL (3.82-5.3); RED CELL DISTRIBUTION WIDTH 15.9 % (9.6-15.2)
[2018-12-23] MEDS ORDERED: METO25TA35 PO (12:58)
[2018-12-23] MEDS ORDERED: FLUT1BLS9 INH (12:58)
[2018-12-23] MEDS ORDERED: INSU100V8 SQ (12:58)
[2018-12-23] MEDS ORDERED: MAGN250T8 PO (12:58)
[2018-12-23] MEDS ORDERED: ONDA4TAB13 SL (12:58)
[2018-12-23] MEDS ORDERED: APIX5TAB PO (12:58)
[2018-12-23] MEDS ORDERED: OXYcodone/APAP 5/325MG TABLET PO ONE (13:00)
[2018-12-23] MEDS ORDERED: METHOCARBAMOL 750 MG TABLET PO ONE (13:00)
[2018-12-23 13:05] LABS: ALANINE AMINOTRANSFERASE 40 U/L (12-78); ALBUMIN 3.1 g/dL (3.4-5.0); ANION GAP 7 mmol/L (5-15); CALCIUM 8.7 mg/dL (8.5-10.1); CHLORIDE 98 mmol/L (98-107)
[2018-12-23] MEDS ORDERED: OXYcodone/APAP 5/325MG TABLET ONE (13:06)
[2018-12-23] MEDS ORDERED: METHOCARBAMOL 750 MG TABLET ONE (13:07)
[2018-12-23 13:08] LABS: ALKALINE PHOSPHATASE 115 U/L (45-117); BILIRUBIN,TOTAL 0.4 mg/dL (0.2-1.0); CREATININE 0.78 mg/dL (0.55-1.02); TOTAL PROTEIN 7.3 g/dL (6.4-8.2)
--- NOTE | 2018-12-23 13:15 | NUR ---
PATIENT RESTING IN BED. BEDSIDE. PATIENT STATES THAT SHE DOES NOT NEED TO URINATE AT THIS TIME.
--- NOTE | 2018-12-23 13:37 | NUR ---
PATIENT URINATED IN UA CUP. IS BACK RESTING IN BED. FRIEND IS BEDSIDE.
[2018-12-23 14:13] VITALS: BP 131/83
[2018-12-23 14:13] LABS: MICROSCOPIC NOT IND
--- NOTE | 2018-12-23 14:14 | NUR ---
PATIENT BEING DISHCHARGED. REPORTS PAIN IMPROVMENT. PAIN LEVEL 5/10.
[2018-12-23 14:17] LABS: CULTURE INDICATED? NO
== END 2018-12-23 14:16 | disposition home or self-care (01) ==
LOC: ED 14:15
DX: E11.65 Type 2 diabetes mellitus with hyperglycemia (principal); E11.40 Type 2 diabetes mellitus with diabetic neuropathy, unspecified; J44.9 Chronic obstructive pulmonary disease, unspecified; I11.0 Hypertensive heart disease with heart failure; I50.9 Heart failure, unspecified; I48.91 Unspecified atrial fibrillation; Z72.9 Problem related to lifestyle, unspecified; Z86.14 Personal history of Methicillin resistant Staphylococcus aureus infection; F17.200 Nicotine dependence, unspecified, uncomplicated
CPT/HCPCS: 36415; 80053; 81003; 85025; 99283

== ENCOUNTER 2019-01-14 18:14 | Emergency (ER) | payer MEDICAID ==
[~2019-01-14] VITALS: Ht 170.2 cm; Wt 92.4 kg
[~2019-01-14 18:14] MED LIST changes: +DILT240C82 PO; -DILT240C87 PO; +DILT360C26 PO; +FLUT1BLS9 INH; +INSU100V8 SQ; +MAGN250T8 PO; -MAGN400T7 PO; +MAGN400T9 PO; +ONDA4TAB13 SL
--- NOTE | 2019-01-14 20:22 | NUR ---
BARIATRIC NURSE: NIL WHEN CALLED FOR ROOM
--- NOTE | 2019-01-14 20:49 | NUR ---
PT C/O NOT FEELING WELL WITH COUGH AND GREEN SPUTUM X3 DAYS. CURRENT SMOKER. CONNECTED TO MONITORING. FAMILY AT BEDSIDE. CALL LIGHT IN REACH.
--- NOTE | 2019-01-14 20:57 | NUR ---
RAPID FLU SWAB COLLECTED AND TAKEN TO LAB. XRAY AT BEDSIDE.
--- NOTE | 2019-01-14 21:17 | NUR ---
REQUESTED OSTOMY SUPPLIED FROM [facility].
[2019-01-14 21:29] LABS: RAPID INFLUENZA A Negative (Negative); RAPID INFLUENZA B Negative (Negative)
--- NOTE | 2019-01-14 21:35 | NUR ---
ALL RESULTS ARE BACK AT THIS TIME. CHART UP FOR RECHECK.
--- NOTE | 2019-01-14 21:50 | NUR ---
PT SLEEPING ON GURNEY. RHETT. SLEEPING ON FLOOR.
[2019-01-14] MEDS ORDERED: ALBUTEROL/IPRATROPIUM 2.5MG/0.5MG, 3 ML NPPB ONE (22:30)
[2019-01-14 23:01] VITALS: BP 148/78
--- NOTE | 2019-01-14 23:02 | NUR ---
PT RESTING COMFORTABLY ON GURNEY. ORDERED OSTOMY SUPPLIES FROM [facility], THE BAG AND WAFER WERE NOT COMPATIBLE TOGETHER.
--- NOTE | 2019-01-14 23:33 | NUR ---
SPOKE WITH HOUSE SUSAN TO LOCATE CORRECT OSOTMY SUPPLIES IN [facility] FOR PT .
--- NOTE | 2019-01-14 23:53 | NUR ---
RECEIVED STOMA SUPPLIES. PT SPOUSE INSISTED ON APPLYING THE COLOSTOMY BAG/WAFER HIMSELF. ALL DC QUESTIONS ANSWERED AT THIS TIME.
--- NOTE | 2019-01-15 00:04 | NUR ---
STOMA COVER WITH WAFER/BAG. PT WHEELED TO DC WITH SPOUSE. ALL QUESITIONS ANSWERED AT THIS TIME.
== END 2019-01-15 00:06 | disposition home or self-care (01) ==
LOC: ED 23:59
DX: J44.1 Chronic obstructive pulmonary disease with (acute) exacerbation (principal); I50.9 Heart failure, unspecified; I25.2 Old myocardial infarction; E11.9 Type 2 diabetes mellitus without complications; I11.0 Hypertensive heart disease with heart failure; F17.200 Nicotine dependence, unspecified, uncomplicated
CPT/HCPCS: 71045; 87400; 94640; 99284; J7620

== ENCOUNTER 2019-01-21 07:45 | Emergency (ER) | payer MEDICAID ==
[~2019-01-21] VITALS: Ht 170.2 cm; Wt 90.9 kg
--- NOTE | 2019-01-21 08:26 | NUR ---
"MY THROAT FEELS LIKE RAZOR BLADES" PT STATES SHE FEELS THOUGH SHE HAS PNA. PT WITH COUGH X3 DAYS WITH GREEN SPUTUM. PT DENIES CP. PT TO BP, CONT PULSE OX
--- NOTE | 2019-01-21 09:10 | NUR ---
PT ASSISTED TO BR, WHEELCHAIR IN USE, PT PREFERRED NOT TO WALK, ABLE TO TRANFER WITHOUT ASSIST. NO OTHER NEEDS AT THIS TIME, AWAITING ERMD EVAL/ORDERS
[2019-01-21 09:54] LABS: BASOPHILS # (AUTO) 0.03 x10^3/uL (0-0.1); BASOPHILS % (AUTO) 0 % (0-1); EOSINOPHILS # (AUTO) 0.07 x10^3/uL (0-0.4); EOSINOPHILS % (AUTO) 1 % (1-7); LYMPHOCYTES # (AUTO) 2.55 x10^3/uL (1-3.4); LYMPHOCYTES % (AUTO) 24 % (22-44); MD NO; MEAN CORPUSCULAR HEMOGLOBIN 29.7 pg (27.0-34.8); MEAN CORPUSCULAR HGB CONC 33.4 g/dL (32.4-35.8); MEAN CORPUSCULAR VOLUME 88.8 fL (80-100); MEAN PLATELET VOLUME 8.4 fL (7.4-10.4); MONOCYTES # (AUTO) 0.42 x10^3/uL (0.2-0.8); MONOCYTES % (AUTO) 4 % (2-9); NEUTROPHILS # (AUTO) 7.77 x10^3/uL (1.8-6.8); NEUTROPHILS % (AUTO) 72 % (42-75); PLATELET COUNT 256 x10^3/uL (130-400); RED BLOOD COUNT 5.18 x10^6/uL (3.82-5.3); RED CELL DISTRIBUTION WIDTH 14.7 % (9.6-15.2)
--- NOTE | 2019-01-21 10:12 | NUR ---
PT RESTING ON DANE HAJI NOTED.
[2019-01-21 10:31] LABS: ANION GAP 13 mmol/L (5-15); CALCIUM 8.3 mg/dL (8.5-10.1); CHLORIDE 96 mmol/L (98-107)
[2019-01-21 10:40] LABS: CREATININE 0.81 mg/dL (0.55-1.02)
[2019-01-21 10:45] LABS: TROPONIN I < 0.015 ng/mL (0.000-0.045)
[2019-01-21] MEDS ORDERED: SODIUM CHLORIDE 0.9% 1,000ML IVBOLUS ONE (11:30)
--- NOTE | 2019-01-21 11:48 | NUR ---
PIV INITITATED, PT MEDICATED PER MAR. VSS, NAD NOTED
--- NOTE | 2019-01-21 12:48 | NUR ---
TASK RN COVERING MEAL BREAK. 2ND BAG OF NS BOLUS INFUSING. VSS/UPDATED IN COMPUTER. ICE CHIPS PROVIDED PER REQUEST AFTER VERIFICATION WITH ERP. CALL LIGHT WITHIN REACH.
[2019-01-21 12:49] VITALS: BP 149/85
== END 2019-01-21 14:00 | disposition home or self-care (01) ==
LOC: ED 12:10
DX: J02.9 Acute pharyngitis, unspecified (principal); E11.65 Type 2 diabetes mellitus with hyperglycemia; I11.0 Hypertensive heart disease with heart failure; I50.9 Heart failure, unspecified; I25.10 Atherosclerotic heart disease of native coronary artery without angina pectoris; I25.2 Old myocardial infarction; J44.9 Chronic obstructive pulmonary disease, unspecified; I48.91 Unspecified atrial fibrillation; E11.40 Type 2 diabetes mellitus with diabetic neuropathy, unspecified; Z89.029 Acquired absence of unspecified finger(s)
CPT/HCPCS: 36415; 71045; 80048; 82040; 83605; 83880; 84484; 85025; 93005; 99284; J7030

== ENCOUNTER 2019-01-27 10:37 | Emergency (ER) | payer MEDICAID ==
[~2019-01-27] VITALS: Ht 170.2 cm; Wt 90.9 kg
--- NOTE | 2019-01-27 10:43 | NUR ---
No answer x 1 from lobby to triage.
[2019-01-27 10:56] VITALS: BP 92/68
== END 2019-01-27 13:20 | disposition home or self-care (01) ==
LOC: ED 13:08
DX: Z93.3 Colostomy status (principal); F17.200 Nicotine dependence, unspecified, uncomplicated; I11.0 Hypertensive heart disease with heart failure; I50.9 Heart failure, unspecified; I25.10 Atherosclerotic heart disease of native coronary artery without angina pectoris; J44.9 Chronic obstructive pulmonary disease, unspecified; I48.91 Unspecified atrial fibrillation; E11.65 Type 2 diabetes mellitus with hyperglycemia; I25.2 Old myocardial infarction; Z89.029 Acquired absence of unspecified finger(s)
CPT/HCPCS: 99281

== ENCOUNTER 2019-02-04 22:54 | Emergency (ER) ==
[~2019-02-04] VITALS: Ht 170.2 cm; Wt 95.0 kg
--- NOTE | 2019-02-04 23:22 | NUR ---
Patient came to ER c/o SOB, abd pain, vaginal pain. Patient states she has abd pain in all quadrants which is worse when she coughs. She states, "I also think I have a yeast infection." Patient has a raspy voice but is in no apparent distress.
[2019-02-04 23:54] LABS: ALANINE AMINOTRANSFERASE 31 U/L (12-78); ALBUMIN 3.2 g/dL (3.4-5.0); ANION GAP 10 mmol/L (5-15); CALCIUM 8.4 mg/dL (8.5-10.1); CHLORIDE 100 mmol/L (98-107)
[2019-02-04 23:59] LABS: ALKALINE PHOSPHATASE 133 U/L (45-117); BILIRUBIN,TOTAL 0.4 mg/dL (0.2-1.0); TOTAL PROTEIN 7.2 g/dL (6.4-8.2); TROPONIN I < 0.015 ng/mL (0.000-0.045)
--- NOTE | 2019-02-05 00:05 | NUR ---
Patient's assisted patient with emptying her colostomy bag. Patient has a constant wet cough. Appears restless.
[2019-02-05 00:10] LABS: BASOPHILS # (AUTO) 0.03 x10^3/uL (0-0.1); BASOPHILS % (AUTO) 0 % (0-1); EOSINOPHILS # (AUTO) 0.07 x10^3/uL (0-0.4); EOSINOPHILS % (AUTO) 1 % (1-7); LYMPHOCYTES # (AUTO) 3.07 x10^3/uL (1-3.4); LYMPHOCYTES % (AUTO) 39 % (22-44); MD SCAN; MEAN CORPUSCULAR HGB CONC 33.2 g/dL (32.4-35.8); MEAN CORPUSCULAR VOLUME 90.3 fL (80-100); MEAN PLATELET VOLUME 8.5 fL (7.4-10.4); MONOCYTES # (AUTO) 0.46 x10^3/uL (0.2-0.8); MONOCYTES % (AUTO) 6 % (2-9); NEUTROPHILS # (AUTO) 4.36 x10^3/uL (1.8-6.8); NEUTROPHILS % (AUTO) 55 % (42-75); PLATELET COUNT 207 x10^3/uL (130-400); RED BLOOD COUNT 4.78 x10^6/uL (3.82-5.3); RED CELL DISTRIBUTION WIDTH 16.1 % (9.6-15.2)
[2019-02-05] MEDS ORDERED: MAALOX/HYOSCYAMINE/LIDOCAINE 45 ML BTL ONE (00:16)
[2019-02-05] MEDS ORDERED: MAALOX/HYOSCYAMINE/LIDOCAINE 45 ML BTL PO ONE (00:30)
--- NOTE | 2019-02-05 01:00 | NUR ---
patient to bathroom. ambulated with steady gait.
--- NOTE | 2019-02-05 01:25 | NUR ---
re-evaluation done. patient discharged with prescriptions and instruction. verbalized understanding.
[2019-02-05 01:26] VITALS: BP 131/93
== END 2019-02-05 01:28 | disposition home or self-care (01) ==
LOC: ED 23:10
DX: J20.9 Acute bronchitis, unspecified (principal); J44.0 Chronic obstructive pulmonary disease with (acute) lower respiratory infection; F10.20 Alcohol dependence, uncomplicated; F15.20 Other stimulant dependence, uncomplicated; F17.200 Nicotine dependence, unspecified, uncomplicated; E11.40 Type 2 diabetes mellitus with diabetic neuropathy, unspecified; I25.2 Old myocardial infarction; I25.10 Atherosclerotic heart disease of native coronary artery without angina pectoris; I48.91 Unspecified atrial fibrillation; I11.0 Hypertensive heart disease with heart failure; I50.9 Heart failure, unspecified; Z89.029 Acquired absence of unspecified finger(s); Y90.0 Blood alcohol level of less than 20 mg/100 ml
CPT/HCPCS: 36415; 71045; 80053; 80307; 83880; 84484; 85025; 93005; 99284; J7512

== ENCOUNTER 2019-02-13 17:20 | Emergency (ER) | payer MEDICAID ==
[~2019-02-13] VITALS: Ht 170.2 cm; Wt 91.0 kg
[2019-02-13 17:24] VITALS: BP 139/87
--- NOTE | 2019-02-13 17:48 | NUR ---
Patient denies medical complaints, requests ostomy bag and supplies as she is not currently wearing one.
--- NOTE | 2019-02-13 19:37 | NUR ---
Discharge instructions discussed with patient including when to return to emergency department, patient verbalizes understanding.
== END 2019-02-13 19:39 | disposition home or self-care (01) ==
LOC: ED 19:33
DX: K59.00 Constipation, unspecified (principal); F10.20 Alcohol dependence, uncomplicated; F15.20 Other stimulant dependence, uncomplicated; F17.200 Nicotine dependence, unspecified, uncomplicated; R10.84 Generalized abdominal pain; E11.9 Type 2 diabetes mellitus without complications; I11.0 Hypertensive heart disease with heart failure; I50.9 Heart failure, unspecified; K21.9 Gastro-esophageal reflux disease without esophagitis; I25.10 Atherosclerotic heart disease of native coronary artery without angina pectoris; J44.9 Chronic obstructive pulmonary disease, unspecified; I25.2 Old myocardial infarction; I48.91 Unspecified atrial fibrillation; Z93.3 Colostomy status; Z87.01 Personal history of pneumonia (recurrent); Z72.9 Problem related to lifestyle, unspecified; Z85.828 Personal history of other malignant neoplasm of skin; Z86.14 Personal history of Methicillin resistant Staphylococcus aureus infection; Y90.9 Presence of alcohol in blood, level not specified
CPT/HCPCS: 74021; 99283

== ENCOUNTER 2019-02-19 16:03 | Emergency (ER) | payer MEDICAID ==
[~2019-02-19] VITALS: Ht 170.2 cm; Wt 90.0 kg
[2019-02-19 16:09] VITALS: BP 118/79
--- NOTE | 2019-02-19 16:28 | NUR ---
THIS IS A 58 YO FEMALE COMING IN FOR " MY VAGINA IS INFLAMED AND IT FEELS LIKE ITS ON FIRE FOR THE PAST WEEK. THERE MIGHT HAVE BEEN SOME DISCHARGE A COUPLE DAYS AGO". PATIENT DENIES ANY CRAMPING. PATIENT PLACED IN GOWN, AND SHEET TO COVER UP WITH. 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 PATIENT IS 30 CIGARETTE PER DAY SMOKER, DAILY ETOH, AND METHAMPHETAMINE USER. HAS COLOSTOMY BAG ON UPPER LEFT SIDE OF ABDOMEN. SIGNIFICANT OTHER IN ROOM, CALL LIGHT IN REACH. DENIES NEEDS AT THIS TIME.
--- NOTE | 2019-02-19 16:34 | NUR ---
SIGNIFICANT OTHER WHEELED PATIENT TO RESTROOM, PROVIDED PATIENT WITH CLEANSING WIPE AND URINE CUP AND INSTRUCTED PATIENT HOW TO OBTAIN CLEAN CATCH SPECIMEN.
--- NOTE | 2019-02-19 17:14 | NUR ---
PATIENT TRANSFERRED TO PELVIC BED. CLASSIFICATION COUNSELOR CART SET UP IN ROOM PER MD ORDERS
--- NOTE | 2019-02-19 17:42 | NUR ---
BEDSIDE REPORT GIVEN TO SHERIF COPE. PLAN OF CARE DISCUSSED.
--- NOTE | 2019-02-19 17:43 | NUR ---
REPORT RECEIVED FROM DOMINIQUE Johnson RN AND ASSUMED PT CARE
[2019-02-19] MEDS ORDERED: FLUCONAZOLE 100 MG TABLET ONE (18:53)
--- NOTE | 2019-02-19 18:59 | NUR ---
PT RESTING IN BED. ABX GIVEN.NO REQUESTS AT THIS TIME
[2019-02-19] MEDS ORDERED: FLUCONAZOLE 100 MG TABLET PO ONE (19:00)
[2019-02-19 19:02] LABS: CLUE CELLS NONE SEEN (NONE SEEN)
[2019-02-19 19:03] LABS: WET PREP WBCS FEW (FEW)
== END 2019-02-19 19:28 | disposition home or self-care (01) ==
LOC: ED 18:16
DX: B37.3 Candidiasis of vulva and vagina (principal); E11.9 Type 2 diabetes mellitus without complications; I25.2 Old myocardial infarction; J45.909 Unspecified asthma, uncomplicated; I48.91 Unspecified atrial fibrillation
CPT/HCPCS: 87210; 87491; 87591; 87808; 99283

== ENCOUNTER 2019-05-21 12:26 | Emergency (ER) | payer MEDICAID ==
[~2019-05-21] VITALS: Ht 170.2 cm; Wt 90.8 kg
[~2019-05-21 12:26] MED LIST changes: -DIGO125T PO; +DIGO125T85 PO; -DIGO250T PO; +DIGO250T3 PO
[2019-05-21 12:27] VITALS: BP 174/104
[2019-05-21 13:28] LABS: BASOPHILS # (AUTO) 0.05 x10^3/uL (0-0.1); BASOPHILS % (AUTO) 1 % (0-1); EOSINOPHILS # (AUTO) 0.07 x10^3/uL (0-0.4); EOSINOPHILS % (AUTO) 1 % (1-7); LYMPHOCYTES # (AUTO) 2.38 x10^3/uL (1-3.4); LYMPHOCYTES % (AUTO) 28 % (22-44); MD NO; MEAN CORPUSCULAR HGB CONC 33.4 g/dL (32.4-35.8); MEAN CORPUSCULAR VOLUME 86.8 fL (80-100); MEAN PLATELET VOLUME 8.1 fL (7.4-10.4); MONOCYTES # (AUTO) 0.49 x10^3/uL (0.2-0.8); MONOCYTES % (AUTO) 6 % (2-9); NEUTROPHILS # (AUTO) 5.57 x10^3/uL (1.8-6.8); NEUTROPHILS % (AUTO) 65 % (42-75); PLATELET COUNT 264 x10^3/uL (130-400); RED BLOOD COUNT 4.79 x10^6/uL (3.82-5.3); RED CELL DISTRIBUTION WIDTH 15.5 % (9.6-15.2)
[2019-05-21] MEDS ORDERED: DIAZEPAM 5 MG TABLET PO ONE (13:30)
[2019-05-21] MEDS ORDERED: KETOROLAC 30 MG/1 ML IM ONE (13:30)
[2019-05-21 13:34] LABS: ALANINE AMINOTRANSFERASE 23 U/L (12-78); ALBUMIN 3.1 g/dL (3.4-5.0); ANION GAP 11 mmol/L (5-15); CALCIUM 7.5 mg/dL (8.5-10.1); CHLORIDE 103 mmol/L (98-107); CREATININE 0.58 mg/dL (0.55-1.02)
[2019-05-21 13:37] LABS: ALKALINE PHOSPHATASE 157 U/L (45-117); BILIRUBIN,TOTAL 0.5 mg/dL (0.2-1.0); TOTAL PROTEIN 7.5 g/dL (6.4-8.2)
--- NOTE | 2019-05-21 14:05 | NUR ---
LATE ENTRY FOR 1345 RECEIVED BEDSIDE REPORT FROM SHERIF MARES (BREAK).
--- NOTE | 2019-05-21 14:06 | NUR ---
PT RESTING ON GURNEY. PT EDUCATED REGARDING NEEDING A UA. PT STATES "WELL, I DON'T HAVE TO PEE." WILL CONTINUE TO MONITOR. RHETT. FRIEND BEDSIDE.
--- NOTE | 2019-05-21 14:59 | NUR ---
REQUEST PT FOR UA. PT STATES "I HAVE A HARD TIME PEEING. BUT I GUESS I'LL TRY." PT GUIDED TO BATHROOM.
[2019-05-21] MEDS ORDERED: POTASSIUM CHLORIDE 20 MEQ TAB.ER.PRT PO ONE (15:00)
--- NOTE | 2019-05-21 15:10 | NUR ---
PT STILL REFUSING NIBP AND CONT PULSE OX. UA TAKEN TO LAB.
--- NOTE | 2019-05-21 15:11 | NUR ---
PT ON ADITHYA EATING CHEETOS AND DRINKING HER WATER.
[2019-05-21] MEDS ORDERED: POTASSIUM CHLORIDE 20 MEQ TAB.ER.PRT ONE (15:15)
[2019-05-21 15:33] LABS: MICROSCOPIC AUTO
[2019-05-21 15:36] LABS: CULTURE INDICATED? YES
[2019-05-21] MEDS ORDERED: LIDODERM 5% PATCH TD ONE (16:00)
--- NOTE | 2019-05-21 16:30 | NUR ---
PT GIVEN NEW COLOSTOMY SUPPLIES. RX REQUEST SENT TO PHARMACY
--- NOTE | 2019-05-21 16:48 | NUR ---
PT ALLOWED NIBP. REFUSED CONT PULSE OX.
--- NOTE | 2019-05-21 17:29 | NUR ---
Patient/Caregiver given discharge instructions and they have confirmed that they understand the instructions. Patient PUSHED OUT IN PERSONAL WHEELCHAIR FROM . NADRomeo. PT LEFT WITH ALL PERSONAL BELONGINGS. PT GIVEN REFERRAL FOR WOUND CARE.
[2019-05-22] MEDS ORDERED: LIDODERM REMOVE PATCH NOTE XX ONE (04:00)
== END 2019-05-21 17:33 | disposition home or self-care (01) ==
LOC: ED 13:07
DX: S39.012A Strain of muscle, fascia and tendon of lower back, initial encounter (principal); N30.00 Acute cystitis without hematuria; F17.210 Nicotine dependence, cigarettes, uncomplicated; I25.2 Old myocardial infarction; J44.9 Chronic obstructive pulmonary disease, unspecified; I48.91 Unspecified atrial fibrillation; E11.9 Type 2 diabetes mellitus without complications; I25.10 Atherosclerotic heart disease of native coronary artery without angina pectoris; K21.9 Gastro-esophageal reflux disease without esophagitis; I11.0 Hypertensive heart disease with heart failure; I50.9 Heart failure, unspecified; Z89.029 Acquired absence of unspecified finger(s); X58.XXXA Exposure to other specified factors, initial encounter; Y93.89 Activity, other specified; Y92.89 Other specified places as the place of occurrence of the external cause; Y99.8 Other external cause status
CPT/HCPCS: 36415; 80053; 81001; 85025; 87077; 87086; 87186; 96372; 99284; J1885

== ENCOUNTER 2019-05-29 16:51 | Emergency (ER) | payer MEDICAID ==
[~2019-05-29] VITALS: Ht 170.2 cm; Wt 87.0 kg
--- NOTE | 2019-05-29 17:36 | NUR ---
PT BROUGHT BACK FROM TRIAGE FOR COLOSTOMY BAG CHANGE
--- NOTE | 2019-05-29 17:41 | NUR ---
CALLED [facility] TO CONFIRM RECEIPT OF OSTOMY SUPPLIES ORDER. PER TECH; SUPPLIES WILL BE SENT TO ED SOON.
--- NOTE | 2019-05-29 17:42 | NUR ---
PT REPORT FROM BREAK RN: J CARLOS
[2019-05-29] MEDS ORDERED: ATOR40TA78 PO (17:47)
[2019-05-29] MEDS ORDERED: POTA20TA14 PO (17:47)
[2019-05-29] MEDS ORDERED: NITR100C6 PO (17:47)
[2019-05-29] MEDS ORDERED: METO50TA6 PO (17:47)
[2019-05-29] MEDS ORDERED: FURO20TA3 PO (17:47)
[2019-05-29] MEDS ORDERED: ALBU6.7H8 INH (17:47)
--- NOTE | 2019-05-29 17:51 | NUR ---
PT RESTING QUIETLY ON [facility]. AWAITING COLOSTOMY SUPPLIES FROM [facility].
[2019-05-29 17:57] VITALS: BP 114/81
--- NOTE | 2019-05-29 19:00 | NUR ---
COLOSTOMY BAG CHANGED, PT UP TO BATHROOM GAIT SLOW AND STEADY TO OWN WC. Patient/Caregiver given discharge instructions and they have confirmed that they understand the instructions. Patient ambulatory with steady gait.
== END 2019-05-29 19:02 | disposition home or self-care (01) ==
LOC: ED 17:11
DX: Z43.3 Encounter for attention to colostomy (principal); J44.9 Chronic obstructive pulmonary disease, unspecified; I11.0 Hypertensive heart disease with heart failure; I50.9 Heart failure, unspecified; E11.9 Type 2 diabetes mellitus without complications; I48.91 Unspecified atrial fibrillation; I25.10 Atherosclerotic heart disease of native coronary artery without angina pectoris
CPT/HCPCS: 99281

== ENCOUNTER → 2019-06-08 | Outpatient (CLI) | payer MEDICAID ==
[~2019-06-08] MED LIST changes: +ALBU6.7H8 INH; +ATOR40TA78 PO; +FURO20TA3 PO; +NITR100C6 PO
== END | disposition home or self-care (01) ==
LOC: WOUND 13:14
PROVIDERS: ATTEND Nurse Practitioner Family
DX: Z93.3 Colostomy status (principal); I11.0 Hypertensive heart disease with heart failure; I50.9 Heart failure, unspecified; I25.2 Old myocardial infarction; E78.5 Hyperlipidemia, unspecified; J44.9 Chronic obstructive pulmonary disease, unspecified; I48.91 Unspecified atrial fibrillation; K21.9 Gastro-esophageal reflux disease without esophagitis; I25.10 Atherosclerotic heart disease of native coronary artery without angina pectoris; E66.01 Morbid (severe) obesity due to excess calories; Z89.021 Acquired absence of right finger(s); Z90.49 Acquired absence of other specified parts of digestive tract
CPT/HCPCS: 99214

== ENCOUNTER 2019-08-23 22:39 | Emergency (ER) | payer MEDICAID ==
[~2019-08-23] VITALS: Ht 170.2 cm; Wt 86.7 kg
[~2019-08-23 22:39] MED LIST changes: +ACET-2274 PO; -ACET325T21 PO
[2019-08-24] MEDS ORDERED: ACETAMINOPHEN 500 MG TABLET PO ONE
--- NOTE | 2019-08-24 00:15 | NUR ---
bs report from Alem RN, pt care transferred at this time. WCTM. pt resting in bed, watching tv, NAD, RESP WNL, VSS, waiting for xr results. placed on SPO2/BP monitor
[2019-08-24] MEDS ORDERED: ACETAMINOPHEN 500 MG TABLET ONE (00:59)
--- NOTE | 2019-08-24 01:00 | NUR ---
PT MEDICATED PER MAY. NO CHANGE IN CONDITION, WCTM. WAITING FOR DISPO AND OSTOMY SUPPLIES
[2019-08-24 02:26] VITALS: BP 121/72
--- NOTE | 2019-08-24 02:27 | NUR ---
Patient given discharge instructions and they have confirmed that they understand the instructions. Patient USING WHEELCHAIR TO GET AROUND. GIVEN OSTOMY SUPPLIES. NAD, VSS. PT DENIES ADDITIONAL QUESTIONS AT THIS TIME.
== END 2019-08-24 02:27 | disposition home or self-care (01) ==
LOC: ED 08-24 01:25
DX: M25.462 Effusion, left knee (principal); R05 Cough; I48.91 Unspecified atrial fibrillation; I25.2 Old myocardial infarction; I25.10 Atherosclerotic heart disease of native coronary artery without angina pectoris; I11.0 Hypertensive heart disease with heart failure; I50.9 Heart failure, unspecified; J44.9 Chronic obstructive pulmonary disease, unspecified; E11.9 Type 2 diabetes mellitus without complications; F17.200 Nicotine dependence, unspecified, uncomplicated; Z89.029 Acquired absence of unspecified finger(s)
CPT/HCPCS: 99283

== ENCOUNTER 2019-09-06 12:56 | Emergency (ER) | payer MEDICAID ==
[~2019-09-06] VITALS: Ht 170.2 cm; Wt 88.2 kg
[2019-09-06 13:01] VITALS: BP 148/83
--- NOTE | 2019-09-06 13:13 | NUR ---
first contact with pt. Pt c/o L knee pain x2 weeks, seen here then for same and diagnosed with a joint effusion. No known injury. CMS intact, able to ambulate with pain. Pt also would like a colostomy bag change. pt's aox4. resps even and unlabored.
[2019-09-06] MEDS ORDERED: OXYcodone/APAP 5/325MG TABLET ONE (13:22)
--- NOTE | 2019-09-06 13:25 | NUR ---
pt in xray at this time.
--- NOTE | 2019-09-06 13:25 | NUR ---
pt medicated per emar. pt tolerated well.
[2019-09-06] MEDS ORDERED: OXYcodone/APAP 5/325MG TABLET PO ONE (13:30)
--- NOTE | 2019-09-06 14:18 | NUR ---
NEW COLOSTOMY KIT GIVEN TO PT AT THIS TIME.
--- NOTE | 2019-09-06 15:39 | NUR ---
Patient given discharge instructions and they have confirmed that they understand the instructions.
== END 2019-09-06 15:40 | disposition home or self-care (01) ==
LOC: ED 14:35
DX: M25.462 Effusion, left knee (principal); M25.562 Pain in left knee; I48.91 Unspecified atrial fibrillation; J44.9 Chronic obstructive pulmonary disease, unspecified; K21.9 Gastro-esophageal reflux disease without esophagitis; I11.0 Hypertensive heart disease with heart failure; I50.9 Heart failure, unspecified; E11.9 Type 2 diabetes mellitus without complications; I25.2 Old myocardial infarction; Z88.0 Allergy status to penicillin; Z88.1 Allergy status to other antibiotic agents; Z89.029 Acquired absence of unspecified finger(s)
CPT/HCPCS: 29505; 99284

== ENCOUNTER 2019-09-15 22:08 | Emergency (ER) | payer MEDICAID ==
[~2019-09-15] VITALS: Ht 170.2 cm; Wt 85.6 kg
[2019-09-15 22:15] VITALS: BP 151/101
--- NOTE | 2019-09-15 22:40 | NUR ---
ORDERED OSTOMY SUPPLIES FROM [facility]. WILL AWAIT SUPPLIES.
== END 2019-09-15 23:30 | disposition home or self-care (01) ==
LOC: ED 23:28
DX: M79.641 Pain in right hand (principal); I11.0 Hypertensive heart disease with heart failure; E11.9 Type 2 diabetes mellitus without complications; J44.9 Chronic obstructive pulmonary disease, unspecified; I25.10 Atherosclerotic heart disease of native coronary artery without angina pectoris; I48.91 Unspecified atrial fibrillation; I25.2 Old myocardial infarction; F17.210 Nicotine dependence, cigarettes, uncomplicated; K21.9 Gastro-esophageal reflux disease without esophagitis; Z89.021 Acquired absence of right finger(s); Z93.3 Colostomy status
CPT/HCPCS: 99283; 99406

== ENCOUNTER 2019-09-28 13:29 | Emergency (ER) | payer MEDICAID ==
[~2019-09-28] VITALS: Ht 170.2 cm; Wt 87.0 kg
--- NOTE | 2019-09-28 14:10 | NUR ---
Wound care team to be here in 30min
[2019-09-28 14:21] LABS: BASOPHILS # (AUTO) 0.04 x10^3/uL (0-0.1); BASOPHILS % (AUTO) 1 % (0-1); EOSINOPHILS # (AUTO) 0.08 x10^3/uL (0-0.4); EOSINOPHILS % (AUTO) 1 % (1-7); LYMPHOCYTES # (AUTO) 2.88 x10^3/uL (1-3.4); LYMPHOCYTES % (AUTO) 34 % (22-44); MD NO; MEAN CORPUSCULAR HEMOGLOBIN 30.4 pg (27.0-34.8); MEAN CORPUSCULAR HGB CONC 33.2 g/dL (32.4-35.8); MEAN CORPUSCULAR VOLUME 91.3 fL (80-100); MEAN PLATELET VOLUME 8.9 fL (7.4-10.4); MONOCYTES # (AUTO) 0.41 x10^3/uL (0.2-0.8); MONOCYTES % (AUTO) 5 % (2-9); NEUTROPHILS # (AUTO) 5.18 x10^3/uL (1.8-6.8); NEUTROPHILS % (AUTO) 60 % (42-75); PLATELET COUNT 211 x10^3/uL (130-400); RED BLOOD COUNT 4.89 x10^6/uL (3.82-5.3); RED CELL DISTRIBUTION WIDTH 15.6 % (9.6-15.2)
[2019-09-28 14:31] LABS: INTERNATIONAL NORMALIZED RATIO 1.04 (0.93-1.1)
[2019-09-28 14:33] LABS: ALANINE AMINOTRANSFERASE 21 U/L (12-78); ANION GAP 11 mmol/L (5-15); CALCIUM 7.7 mg/dL (8.5-10.1); CHLORIDE 101 mmol/L (98-107); CREATININE 0.84 mg/dL (0.55-1.02)
[2019-09-28 14:36] LABS: ALKALINE PHOSPHATASE 116 U/L (45-117); BILIRUBIN,TOTAL 0.6 mg/dL (0.2-1.0); TOTAL PROTEIN 7.7 g/dL (6.4-8.2)
[2019-09-28] MEDS ORDERED: ONDANSETRON 2MG/ML, 2ML IVPush ONE (15:00)
[2019-09-28] MEDS ORDERED: SODIUM CHLORIDE FLUSH 10ML SYR IVF ONE (15:00)
--- NOTE | 2019-09-28 15:07 | NUR ---
Evelyn rn angiography here to help pt with ostomy care.
--- NOTE | 2019-09-28 15:15 | NUR ---
WOUND CARE NURSE AT BEDSIDE FOR EVAL.
[2019-09-28] MEDS ORDERED: ONDANSETRON 2MG/ML, 2ML ONE ×2 (15:27→15:38)
[2019-09-28] MEDS ORDERED: ONDANSETRON ODT 4 MG ONE (15:36)
[2019-09-28] MEDS ORDERED: POTASSIUM CHLORIDE 20 MEQ TAB.ER.PRT ONE (15:49)
--- NOTE | 2019-09-28 15:52 | NUR ---
UNABLE TO COLLECT STOOL SAMPLE AT THIS TIME, PT HAS NOT PRODUCED ANY STOOL FROM OSTOMY. PT MEDICATED PER MAY. PLACED ON 2LNC FOR O2 SAT 80%. NOW 94%2L. PT TAKEN TO CT BY TECH.
[2019-09-28] MEDS ORDERED: POTASSIUM CHLORIDE 20 MEQ TAB.ER.PRT PO ONE (16:00)
[2019-09-28] MEDS ORDERED: OMNIPAQUE 350 MG/ML, 100ML BOTTLE ONE (16:12)
[2019-09-28 16:43] VITALS: BP 140/82
--- NOTE | 2019-09-28 16:50 | NUR ---
PT HR SUSTAINING AT 130'S PT'S SO REPORTS PT RAN OUT OF [facility] 10 DAYS AGO TAKES IT FOR AFIB. Addendum: 09/28/19 at 1651 by BANG REPORTED TO FANTA.
[2019-09-28] MEDS ORDERED: POTASSIUM CHLORIDE 40 MEQ in SODIUM CHLORIDE 0.9% 500 ML IV ONE (17:00)
[2019-09-28] MEDS ORDERED: DILTIAZEM 5 MG/ML, 5ML IVPush ONE (17:00)
--- NOTE | 2019-09-28 17:00 | NUR ---
PT WISHES TO LEAVE AMA. REFUSING MEDS AT THIS TIME.
[2019-09-28] MEDS ORDERED: APIXABAN 5 MG TABLET PO SCH (21:00)
== END 2019-09-28 17:36 | disposition home or self-care (01) ==
LOC: ED 16:08
DX: R10.9 Unspecified abdominal pain (principal); R10.84 Generalized abdominal pain; R11.2 Nausea with vomiting, unspecified; F17.210 Nicotine dependence, cigarettes, uncomplicated; E11.9 Type 2 diabetes mellitus without complications; K21.9 Gastro-esophageal reflux disease without esophagitis; J44.9 Chronic obstructive pulmonary disease, unspecified; I25.2 Old myocardial infarction; I11.0 Hypertensive heart disease with heart failure; I50.9 Heart failure, unspecified; E87.6 Hypokalemia; E83.51 Hypocalcemia; E83.42 Hypomagnesemia; I48.91 Unspecified atrial fibrillation; I44.4 Left anterior fascicular block
CPT/HCPCS: 36415; 74177; 80053; 83690; 85025; 85610; 93005; 96374; 99285; 99406; J2405; Q9967

== ENCOUNTER 2019-10-14 13:22 | Emergency (ER) | payer MEDICAID ==
[~2019-10-14] VITALS: Ht 170.2 cm; Wt 88.0 kg
--- NOTE | 2019-10-14 13:29 | NUR ---
EKG IN TRIAGE
--- NOTE | 2019-10-14 13:49 | NUR ---
PT ADMITS TO METH USE YESTERDAY, AND STATES SHE ALREADY DRANK A PINT TODAY. PULSE 140'S ON MONITOR. PT ON 2L O2, STATES SHE USED TO HAVE HOME O2 BUT HASN'T NEEDED IT FOR "AWHILE". C/O CHEST PAIN THAT GETS WORSE WITH EXERTION, ACCOMPANIED BY SOB, AND LACK OF SUPPLIES/MEDICATIONS FOR CHRONIC CONDITIONS. CALL LIGHT IN REACH, PT ATTACHED TO MONITORS AND DRESSED IN GOWN.
[2019-10-14] MEDS ORDERED: DILTIAZEM 5 MG/ML, 5ML IV ONE (14:30)
[2019-10-14] MEDS ORDERED: SODIUM CHLORIDE FLUSH 10ML SYR IVF ONE (14:30)
[2019-10-14] MEDS ORDERED: ASPIRIN 81 MG TABLET CHEW PO ONE (14:30)
[2019-10-14 14:52] LABS: BASOPHILS # (AUTO) 0.05 x10^3/uL (0-0.1); BASOPHILS % (AUTO) 1 % (0-1); EOSINOPHILS # (AUTO) 0.12 x10^3/uL (0-0.4); EOSINOPHILS % (AUTO) 1 % (1-7); LYMPHOCYTES # (AUTO) 2.85 x10^3/uL (1-3.4); LYMPHOCYTES % (AUTO) 27 % (22-44); MD NO; MEAN CORPUSCULAR HEMOGLOBIN 30.7 pg (27.0-34.8); MEAN CORPUSCULAR HGB CONC 33.5 g/dL (32.4-35.8); MEAN CORPUSCULAR VOLUME 91.8 fL (80-100); MEAN PLATELET VOLUME 8.5 fL (7.4-10.4); MONOCYTES # (AUTO) 0.52 x10^3/uL (0.2-0.8); MONOCYTES % (AUTO) 5 % (2-9); NEUTROPHILS # (AUTO) 7.04 x10^3/uL (1.8-6.8); NEUTROPHILS % (AUTO) 67 % (42-75); PLATELET COUNT 209 x10^3/uL (130-400); RED CELL DISTRIBUTION WIDTH 15.4 % (9.6-15.2)
[2019-10-14 14:55] LABS: ALBUMIN 3.4 g/dL (3.4-5.0); ANION GAP 10 mmol/L (5-15); CALCIUM 6.5 mg/dL (8.5-10.1); CHLORIDE 103 mmol/L (98-107)
[2019-10-14 15:00] LABS: TROPONIN I < 0.015 ng/mL (0.000-0.045)
[2019-10-14 15:14] LABS: INTERNATIONAL NORMALIZED RATIO 1.06 (0.93-1.1); PROTHROMBIN TIME 10.9 Seconds (9.6-11.5)
--- NOTE | 2019-10-14 16:01 | NUR ---
PT SLEEPING SOUNDLY. REUSABLE COFFEE CUP FOUND AT BEDSIDE FULL OF HARD ALCOHOL. REMOVED AT THIS TIME. PT COLOSTOMY BAG AND WAFER CHANGED. VITALS STABLE. CALL LIGHT IN REACH.
[2019-10-14] MEDS ORDERED: DILTIAZEM 5 MG/ML, 5ML ONE (16:15)
[2019-10-14] MEDS ORDERED: SODIUM CHLORIDE 0.9% 1,000ML IVBOLUS ONE (16:30)
[2019-10-14 17:44] VITALS: BP 137/75
== END 2019-10-14 18:04 | disposition home or self-care (01) ==
LOC: ED 14:26
DX: I48.20 Chronic atrial fibrillation, unspecified (principal); F10.20 Alcohol dependence, uncomplicated; F15.20 Other stimulant dependence, uncomplicated; R00.0 Tachycardia, unspecified; I87.8 Other specified disorders of veins; R07.9 Chest pain, unspecified; I11.0 Hypertensive heart disease with heart failure; I50.9 Heart failure, unspecified; E11.9 Type 2 diabetes mellitus without complications; K21.9 Gastro-esophageal reflux disease without esophagitis; J44.9 Chronic obstructive pulmonary disease, unspecified; I25.2 Old myocardial infarction; Z72.9 Problem related to lifestyle, unspecified; Z88.0 Allergy status to penicillin; Z88.1 Allergy status to other antibiotic agents; Z79.01 Long term (current) use of anticoagulants; Z89.029 Acquired absence of unspecified finger(s); Z95.0 Presence of cardiac pacemaker; Y90.9 Presence of alcohol in blood, level not specified
CPT/HCPCS: 36415; 71045; 80048; 82040; 82962; 84484; 85025; 85610; 85730; 93005; 96361; 96374; 99285; J7030

== ENCOUNTER 2019-10-17 04:19 | Emergency (ER) | payer MEDICAID ==
[~2019-10-17] VITALS: Ht 170.2 cm; Wt 89.0 kg
--- NOTE | 2019-10-17 06:25 | NUR ---
OSTOMY POUCH REPLACED, PT EDUCATED ON OSTOMY CARE AND POUCH REPLACEMENT AND PROPER USE. PT AND FAMILY VERBALIZED UNDERSTANDING. ALL QUESTIONS ANSWERED AT THIS TIME. PT PROVIDED ADDITIONAL OSTOMY POUCH.
[2019-10-17 06:42] VITALS: BP 133/92
== END 2019-10-17 06:52 | disposition home or self-care (01) ==
LOC: ED 05:32
DX: S63.521A Sprain of radiocarpal joint of right wrist, initial encounter (principal); I48.20 Chronic atrial fibrillation, unspecified; E11.9 Type 2 diabetes mellitus without complications; I11.0 Hypertensive heart disease with heart failure; I50.9 Heart failure, unspecified; K21.9 Gastro-esophageal reflux disease without esophagitis; I25.10 Atherosclerotic heart disease of native coronary artery without angina pectoris; J44.9 Chronic obstructive pulmonary disease, unspecified; Z89.029 Acquired absence of unspecified finger(s); Z90.49 Acquired absence of other specified parts of digestive tract; X50.1XXA Overexertion from prolonged static or awkward postures, initial encounter; Y93.89 Activity, other specified; Y92.098 Other place in other non-institutional residence as the place of occurrence of the external cause; Y99.8 Other external cause status
CPT/HCPCS: 36415; 80162; 99284

== ENCOUNTER 2019-10-22 17:29 | Emergency (ER) | payer MEDICAID ==
[~2019-10-22] VITALS: Ht 170.2 cm; Wt 86.3 kg
--- NOTE | 2019-10-22 17:35 | NUR ---
nil x 1
[2019-10-22 19:19] LABS: BASOPHILS # (AUTO) 0.05 x10^3/uL (0-0.1); BASOPHILS % (AUTO) 1 % (0-1); EOSINOPHILS % (AUTO) 2 % (1-7); LYMPHOCYTES # (AUTO) 2.94 x10^3/uL (1-3.4); LYMPHOCYTES % (AUTO) 31 % (22-44); MD NO; MEAN CORPUSCULAR HEMOGLOBIN 30.8 pg (27.0-34.8); MEAN CORPUSCULAR HGB CONC 33.3 g/dL (32.4-35.8); MEAN CORPUSCULAR VOLUME 92.6 fL (80-100); MEAN PLATELET VOLUME 8.5 fL (7.4-10.4); MONOCYTES # (AUTO) 0.68 x10^3/uL (0.2-0.8); MONOCYTES % (AUTO) 7 % (2-9); NEUTROPHILS # (AUTO) 5.48 x10^3/uL (1.8-6.8); NEUTROPHILS % (AUTO) 59 % (42-75); PLATELET COUNT 193 x10^3/uL (130-400); RED BLOOD COUNT 4.61 x10^6/uL (3.82-5.3)
[2019-10-22] MEDS ORDERED: ONDANSETRON ODT 4 MG ONE (19:23)
[2019-10-22] MEDS ORDERED: HYDROmorphone 1 MG/ML, 1ML INJ ONE (19:24)
[2019-10-22 19:29] LABS: ALANINE AMINOTRANSFERASE 18 U/L (12-78); ALBUMIN 3.4 g/dL (3.4-5.0); ANION GAP 11 mmol/L (5-15); CALCIUM 6.9 mg/dL (8.5-10.1); CHLORIDE 104 mmol/L (98-107); CREATININE 0.83 mg/dL (0.55-1.02)
[2019-10-22] MEDS ORDERED: ONDANSETRON ODT 4 MG PO ONE (19:30)
[2019-10-22] MEDS ORDERED: HYDROmorphone 2 MG/ML, 1ML IM ONE (19:30)
[2019-10-22 19:32] LABS: ALKALINE PHOSPHATASE 119 U/L (45-117); TOTAL PROTEIN 7.5 g/dL (6.4-8.2)
[2019-10-22 22:36] LABS: CLOSTRIDIUM DIFFICILE ANTIGEN NEGATIVE; CLOSTRIDIUM DIFFICILE TOXIN NEGATIVE (Negative)
[2019-10-23 02:25] VITALS: BP 132/90
== END 2019-10-23 02:27 | disposition home or self-care (01) ==
LOC: ED 20:16
DX: G89.29 Other chronic pain (principal); R10.84 Generalized abdominal pain; R11.2 Nausea with vomiting, unspecified; R19.7 Diarrhea, unspecified; E11.9 Type 2 diabetes mellitus without complications; K21.9 Gastro-esophageal reflux disease without esophagitis; J44.9 Chronic obstructive pulmonary disease, unspecified; I11.0 Hypertensive heart disease with heart failure; I50.9 Heart failure, unspecified; I25.2 Old myocardial infarction
CPT/HCPCS: 36415; 80053; 83690; 85025; 87324; 89055; 96372; 99283; J1170; Q0162

== ENCOUNTER 2019-11-26 11:36 | Emergency (ER) | payer MEDICAID ==
[~2019-11-26] VITALS: Ht 170.2 cm; Wt 90.0 kg
[2019-11-26 11:47] VITALS: BP 142/66
== END 2019-11-26 12:57 | disposition home or self-care (01) ==
LOC: ED 12:50
DX: Z43.3 Encounter for attention to colostomy (principal); I48.91 Unspecified atrial fibrillation; K21.9 Gastro-esophageal reflux disease without esophagitis; I10 Essential (primary) hypertension; E11.65 Type 2 diabetes mellitus with hyperglycemia
CPT/HCPCS: 99281

== ENCOUNTER 2019-11-28 23:23 | Emergency (ER) | payer MEDICAID ==
[~2019-11-28] VITALS: Ht 170.2 cm; Wt 92.0 kg
--- NOTE | 2019-11-28 23:26 | NUR ---
ATTEMPT TO CALL PT FROM LOBBY TO TRIAGE X 1. PT IN RESTROOM AT THIS TIME.
--- NOTE | 2019-11-28 23:36 | NUR ---
TAILINGS DAM PUMPER: EKG DONE IN TRIAGE
--- NOTE | 2019-11-29 | NUR ---
Ostomy supplies ordered at this time, house cleaner to bring supplies to unit
--- NOTE | 2019-11-29 00:24 | NUR ---
New colostomy wafer and bag applied at this time. Stoma noted to be moist and red, draining contents as normal per pt.
--- NOTE | 2019-11-29 00:42 | NUR ---
task rn: report of pt from kang causey and assuming temporary care of pt at this time.
[2019-11-29 01:18] VITALS: BP 151/98
== END 2019-11-29 01:19 | disposition home or self-care (01) ==
LOC: ED 11-29 00:24
DX: Z93.3 Colostomy status (principal); Z72.9 Problem related to lifestyle, unspecified; J44.9 Chronic obstructive pulmonary disease, unspecified; K21.9 Gastro-esophageal reflux disease without esophagitis; I48.91 Unspecified atrial fibrillation; Z85.828 Personal history of other malignant neoplasm of skin
CPT/HCPCS: 93005; 99283

== ENCOUNTER 2019-12-05 14:04 | Emergency (ER) | payer MEDICAID ==
[~2019-12-05] VITALS: Ht 162.6 cm; Wt 98.0 kg
[2019-12-05 14:12] VITALS: BP 120/64
== END 2019-12-05 14:26 | disposition home or self-care (01) ==
LOC: ED 14:10
DX: Z00.00 Encounter for general adult medical examination without abnormal findings (principal); Z76.0 Encounter for issue of repeat prescription; Z72.9 Problem related to lifestyle, unspecified; J45.909 Unspecified asthma, uncomplicated; K21.9 Gastro-esophageal reflux disease without esophagitis; I25.2 Old myocardial infarction; M81.0 Age-related osteoporosis without current pathological fracture
CPT/HCPCS: 99281

== ENCOUNTER 2019-12-06 23:39 | Emergency (ER) | payer MEDICAID ==
[~2019-12-06] VITALS: Ht 170.2 cm; Wt 90.0 kg
--- NOTE | 2019-12-07 00:20 | NUR ---
pt provided with colostomy bag, wafer, cream, and powder. Pt significant other at bedside states "i will do the care", pt states she would prefer significant other to perform colostomy care at this time.
[2019-12-07 00:21] VITALS: BP 158/91
== END 2019-12-07 01:02 | disposition home or self-care (01) ==
LOC: ED 23:55
DX: Z93.3 Colostomy status (principal); F17.290 Nicotine dependence, other tobacco product, uncomplicated; I10 Essential (primary) hypertension; E11.9 Type 2 diabetes mellitus without complications; I25.10 Atherosclerotic heart disease of native coronary artery without angina pectoris; K21.9 Gastro-esophageal reflux disease without esophagitis; I48.91 Unspecified atrial fibrillation; I25.2 Old myocardial infarction; K50.90 Crohn's disease, unspecified, without complications; J44.9 Chronic obstructive pulmonary disease, unspecified; Z85.828 Personal history of other malignant neoplasm of skin
CPT/HCPCS: 99281; 99406

== ENCOUNTER 2019-12-10 12:58 | Emergency (ER) | payer MEDICAID ==
[~2019-12-10] VITALS: Ht 170.2 cm; Wt 91.2 kg
[2019-12-10 13:03] VITALS: BP 159/112
--- NOTE | 2019-12-10 15:02 | NUR ---
TO ROOM FROM LOBBY. NAD .
--- NOTE | 2019-12-10 15:13 | NUR ---
COLOSTOMY SUPPLIES GIVEN TO PT SO. SO IS CLEANING PT AND STATES HE CAN APPLY THE NEW BAG AND WAFER HIMSELF.
== END 2019-12-10 15:44 | disposition home or self-care (01) ==
LOC: ED 13:12
DX: Z43.3 Encounter for attention to colostomy (principal); I25.2 Old myocardial infarction; E11.9 Type 2 diabetes mellitus without complications; I11.0 Hypertensive heart disease with heart failure; I50.9 Heart failure, unspecified; K21.9 Gastro-esophageal reflux disease without esophagitis; I25.10 Atherosclerotic heart disease of native coronary artery without angina pectoris; I48.91 Unspecified atrial fibrillation; J44.9 Chronic obstructive pulmonary disease, unspecified
CPT/HCPCS: 99281

== ENCOUNTER 2019-12-20 19:41 | Inpatient (IN) | payer MEDICAID ==
[~2019-12-20] VITALS: Ht 170.2 cm; Wt 94.7 kg
[~2019-12-20 19:41] MED LIST changes: +ETOMIDATE 20 MG/10 ML ONE; +PROPOFOL 10 MG/ML, 100ML IV ONE; +SUCCINYLCHOLINE 20 MG/ML, 10ML ONE
[2019-12-20] MEDS ORDERED: SODIUM CHLORIDE FLUSH 10ML SYR IVF ONE (20:30)
[2019-12-20] MEDS ORDERED: ONDANSETRON 2MG/ML, 2ML IVPush ONE (20:30)
[2019-12-20] MEDS ORDERED: MORPHINE SULFATE 4 MG/ML, 1ML IVPush PRN (20:30)
[2019-12-20] MEDS ORDERED: ONDANSETRON 2MG/ML, 2ML ONE (20:48)
[2019-12-20] MEDS ORDERED: MORPHINE SULFATE 4 MG/ML, 1ML ONE (20:48)
[2019-12-20] MEDS ORDERED: DILTIAZEM 5 MG/ML, 5ML ONE ×2 (20:48→20:58)
[2019-12-20 20:51] LABS: BASOPHILS % (AUTO) 1 % (0-1); EOSINOPHILS % (AUTO) 1 % (1-7); LYMPHOCYTES % (AUTO) 21 % (22-44); MEAN CORPUSCULAR HEMOGLOBIN 29.8 pg (27.0-34.8); MEAN CORPUSCULAR HGB CONC 32.4 g/dL (32.4-35.8); MEAN PLATELET VOLUME 8.4 fL (7.4-10.4); MONOCYTES % (AUTO) 8 % (2-9); NEUTROPHILS % (AUTO) 70 % (42-75); PLATELET COUNT 265 x10^3/uL (130-400); RED BLOOD COUNT 4.21 x10^6/uL (3.82-5.3); RED CELL DISTRIBUTION WIDTH 15.3 % (9.6-15.2)
[2019-12-20 20:52] LABS: MD NO
[2019-12-20 20:55] LABS: ALANINE AMINOTRANSFERASE 39 U/L (12-78); ALBUMIN 3.2 g/dL (3.4-5.0); ANION GAP 8 mmol/L (5-15); CALCIUM 8.2 mg/dL (8.5-10.1); CHLORIDE 97 mmol/L (98-107); CREATININE 0.67 mg/dL (0.55-1.02)
[2019-12-20] MEDS ORDERED: DIGOXIN 0.25 MG/ML, 2ML ONE (20:57)
[2019-12-20 20:59] LABS: ALKALINE PHOSPHATASE 136 U/L (45-117); BILIRUBIN,TOTAL 0.8 mg/dL (0.2-1.0); TOTAL PROTEIN 7.8 g/dL (6.4-8.2)
[2019-12-20] MEDS ORDERED: DIGOXIN 0.25 MG/ML, 2ML IVPush ONE (21:00)
[2019-12-20] MEDS ORDERED: DILTIAZEM 5 MG/ML, 5ML IVPush ONE ×2 (21:00)
--- NOTE | 2019-12-20 22:32 | NUR ---
2220: Pt became unresponsive. O2 dropped to high 70s NRB with 4L NC. Provider immediately to bedside. Pt moved to trauma room for intubation and higher level of care 2224: 20 mg etomidate given, verbal order from Florentino RICO 2227: 120 succs given, verbal order from 222: pt remained in rapid a-fib to 150s, cardioversion completed with MD at bedside at 100 J with good effect, HR to 80s NSR
[2019-12-20] MEDS ORDERED: PROPOFOL 100 ML IV PRN (22:43)
[2019-12-20] MEDS ORDERED: SUCCINYLCHOLINE 20 MG/ML, 10ML IVPush ONE (23:00)
[2019-12-20] MEDS ORDERED: ETOMIDATE 20 MG/10 ML IVPush ONE (23:00)
--- NOTE | 2019-12-20 23:09 | NUR ---
Delayed noted d/t high level of pt care. A&o x4, answering questions appropriately upon arrival. Pt presents to ED c/o N/V/abd pain x "a few days." Pt asks that we let speak for her. States pt's ostomy output has been increasingly more watery x days. Also c/o "pain all over my belly." No tenderness noted. Abd soft, flat, nondistened. Pt found to be in rapid a-fib to 170s upon this RN assuming care. Providers made aware. See eMAR for interventions. Pt also c/o increased SOB. Placed on NRB by other RN with good effect initially. Pt desats to low 80s with movement in stretcher, placed on 4L NC in addition to NRB with good effect, provider aware. Denies chest pain. Denies fever/chills. Pt remained stable x ~2 hours, became unresponsive. Provider immediately to bedside. Moved to trauma bay for intubation. See timeline note for additional details
[2019-12-20] MEDS ORDERED: PHARMACY MAY ADJ FOR RENAL FX MC SCH (23:30)
[2019-12-20] MEDS ORDERED: LIDOCAINE-MPF 1%, 2ML ENDO PRN (23:30)
[2019-12-20] MEDS ORDERED: FENTANYL PF 100 MCG/2ML IVPush PRN (23:30)
--- NOTE | 2019-12-20 23:30 | NUR ---
PT AGITATED AND WITH IN ROOM PT SAT UP AND PULL ON ET TUBE WITH RETRAINT ON HANDS, PT WAS ABLE TO GET HEAD ON HAND. PT RESTRAINTS TIGHTENED AND PT PROPOFOL ADJUSTED UP. PROVIDER DR SANTOS CAME IN1 MIN AFTER AND GAVE VERBAL ORDER FOR "VERSED DRIP AT 5MG /HR"
--- NOTE | 2019-12-20 23:34 | NUR ---
Report given to Fuad GORMAN
[2019-12-20] MEDS ORDERED: FAMOTIDINE 20 MG/2 ML ONE (23:41)
[2019-12-20] MEDS ORDERED: FENTANYL PF 100 MCG/2ML ONE (23:42)
[2019-12-20] MEDS: FAMOTIDINE 20 MG/2 ML IV SCH (23:47)
[2019-12-20] MEDS: MIDAZOLAM HCL 50 MG in SODIUM CHLORIDE 0.9% 40 ML IV PRN (23:48)
[2019-12-21] MEDS ORDERED: TEMAZEPAM 15 MG CAPSULE PO PRN
[2019-12-21] MEDS ORDERED: METHOCARBAMOL 500 MG TABLET PO PRN
[2019-12-21] MEDS ORDERED: CEFTRIAXONE PMX 1GM/50ML 50 ML IV SCH
[2019-12-21] MEDS ORDERED: morphine SULFATE 10 MG/ML, 1ML IVPush PRN
[2019-12-21] MEDS ORDERED: ACETAMINOPHEN 325 MG TABLET PO PRN
[2019-12-21] MEDS ORDERED: DOCUSATE 100 MG CAPSULE PO PRN
[2019-12-21] MEDS ORDERED: ONDANSETRON 2MG/ML, 2ML IV PRN
[2019-12-21] MEDS ORDERED: ONDANSETRON 2MG/ML, 2ML IVPush PRN
--- NOTE | 2019-12-21 00:19 | NUR ---
Report given to Eugenia GORMAN
[2019-12-21] MEDS ORDERED: OMNIPAQUE 350 MG/ML, 100ML BOTTLE ONE (00:38)
[2019-12-21] MEDS: SODIUM CHLORIDE 0.9% 1,000 ML IV SCH ×2 (01:06→15:42)
[2019-12-21] MEDS: methylPREDNISolone SOD SUCC 40 MG/ML IV SCH ×3 (01:21→17:34)
[2019-12-21] MEDS: DOXYCYCLINE 100 MG in DEXTROSE 5% 250 ML IV SCH ×2 (01:42→12:18)
[2019-12-21] MEDS ORDERED: FUROSEMIDE 20 MG/2 ML IV ONE ×2 (02:00→09:00)
[2019-12-21 02:18] LABS: AMPHETAMINE SCREEN, URINE Positive (Negative); BARBITURATE SCREEN, URINE Negative (Negative); BENZODIAZEPINE SCREEN, URINE Positive (Negative); CANNABINOID SCREEN, URINE Negative (Negative); COCAINE SCREEN, URINE Negative (Negative); METHADONE SCREEN, URINE Negative (Negative); OPIATE SCREEN, URINE Positive (Negative)
[2019-12-21 02:23] LABS: MICROSCOPIC INDICATED
[2019-12-21] MEDS: PROPOFOL 100 ML IV PRN ×4 (02:50→19:31)
[2019-12-21] MEDS: INSULIN REGULAR 100 UNITS/ML, 3ML VIAL SQ-INSULIN SCH ×4 (03:36→20:29)
[2019-12-21 04:00] VITALS: BP 144/82
[2019-12-21 04:32] VITALS: BP 149/84
[2019-12-21 05:15] LABS: ANION GAP 5 mmol/L (5-15); CALCIUM 8.3 mg/dL (8.5-10.1); CHLORIDE 96 mmol/L (98-107); CREATININE 0.86 mg/dL (0.55-1.02)
[2019-12-21 06:26] LABS: BASOPHILS % (AUTO) 0 % (0-1); EOSINOPHILS % (AUTO) 0 % (1-7); LYMPHOCYTES % (AUTO) 5 % (22-44); MEAN CORPUSCULAR HEMOGLOBIN 29.6 pg (27.0-34.8); MEAN CORPUSCULAR HGB CONC 32.4 g/dL (32.4-35.8); MEAN PLATELET VOLUME 8.4 fL (7.4-10.4); MONOCYTES % (AUTO) 3 % (2-9); NEUTROPHILS % (AUTO) 92 % (42-75); PLATELET COUNT 227 x10^3/uL (130-400); RED BLOOD COUNT 4.06 x10^6/uL (3.82-5.3); RED CELL DISTRIBUTION WIDTH 15.4 % (9.6-15.2)
[2019-12-21 06:53] LABS: MD SCAN
[2019-12-21] MEDS ORDERED: METOPROLOL TARTRATE 50 MG TAB PO SCH (09:00)
[2019-12-21] MEDS ORDERED: MAGNESIUM SULFATE PMX 4GM/100M 100 ML IVPB ONE (09:00)
[2019-12-21] MEDS: APIXABAN 5 MG TABLET PO SCH ×2 (09:38→20:26)
[2019-12-21] MEDS: METOPROLOL TARTRATE 25 MG TAB PO SCH ×3 (09:39→20:26)
[2019-12-21] MEDS: MIDAZOLAM HCL 50 MG in SODIUM CHLORIDE 0.9% 40 ML IV PRN (09:42)
[2019-12-21] MEDS ORDERED: SODIUM PHOSPHATE 15 MMOL in SODIUM CHLORIDE 0.9% 500 ML IV ONE (10:00)
[2019-12-21] MEDS: THIAMINE 200 MG in SODIUM CHLORIDE 0.9% 50 ML IV SCH (10:04)
[2019-12-21] MEDS: ENALAPRILAT 1.25 MG/ML, 2ML IVPush PRN (10:32)
[2019-12-21] MEDS: FAMOTIDINE 20 MG/2 ML IV SCH (11:31)
[2019-12-21] MEDS: INSULIN GLARGINE 100 UNITS/ML, PEN SQ-INSULIN SCH ×2 (12:21→21:22)
[2019-12-21] MEDS ORDERED: FUROSEMIDE 40 MG/4 ML IV SCH (21:00)
[2019-12-21] MEDS ORDERED: INSULIN GLARGINE 100 UNITS/ML, PEN SQ-INSULIN SCH (21:00)
[2019-12-22] MEDS: DOXYCYCLINE 100 MG in DEXTROSE 5% 250 ML IV SCH ×2 (00:24→13:46)
[2019-12-22] MEDS: PROPOFOL 100 ML IV PRN ×2 (00:33→06:07)
[2019-12-22] MEDS: METOPROLOL TARTRATE 25 MG TAB PO SCH ×4 (03:38→20:41)
[2019-12-22] MEDS: INSULIN REGULAR 100 UNITS/ML, 3ML VIAL SQ-INSULIN SCH (03:44)
[2019-12-22] MEDS: HYDROcodone/APAP 5/325 TABLET PO PRN ×3 (03:54→20:42)
[2019-12-22] MEDS: FAMOTIDINE 20 MG/2 ML IV SCH ×2 (03:57→15:04)
[2019-12-22] MEDS: SODIUM CHLORIDE 0.9% 1,000 ML IV SCH (03:57)
[2019-12-22 04:00] VITALS: BP 111/58
[2019-12-22 04:37] LABS: BASOPHILS % (AUTO) 0 % (0-1); EOSINOPHILS % (AUTO) 0 % (1-7); LYMPHOCYTES % (AUTO) 6 % (22-44); MEAN CORPUSCULAR HEMOGLOBIN 29.1 pg (27.0-34.8); MEAN CORPUSCULAR HGB CONC 32.6 g/dL (32.4-35.8); MONOCYTES % (AUTO) 6 % (2-9); NEUTROPHILS % (AUTO) 88 % (42-75); PLATELET COUNT 263 x10^3/uL (130-400); RED BLOOD COUNT 4.07 x10^6/uL (3.82-5.3); RED CELL DISTRIBUTION WIDTH 15.7 % (9.6-15.2)
[2019-12-22 04:48] LABS: ANION GAP 6 mmol/L (5-15); CALCIUM 7.6 mg/dL (8.5-10.1); CHLORIDE 95 mmol/L (98-107)
[2019-12-22 04:49] LABS: CREATININE 0.82 mg/dL (0.55-1.02)
[2019-12-22 05:41] LABS: MD SCAN
[2019-12-22] MEDS: methylPREDNISolone SOD SUCC 40 MG/ML IV SCH (05:59)
[2019-12-22] MEDS ORDERED: MAGNESIUM SULFATE PMX 4GM/100M 100 ML IVPB ONE (06:30)
[2019-12-22] MEDS: POTASSIUM CHLORIDE 10% 40 MEQ/30 ML UDC PO SCH ×2 (08:20→20:41)
[2019-12-22] MEDS: APIXABAN 5 MG TABLET PO SCH ×2 (08:21→20:41)
[2019-12-22] MEDS: THIAMINE 200 MG in SODIUM CHLORIDE 0.9% 50 ML IV SCH (08:25)
[2019-12-22] MEDS: INSULIN GLARGINE 100 UNITS/ML, PEN SQ-INSULIN SCH ×2 (08:37→20:46)
[2019-12-22] MEDS: INSULIN REGULAR, HUMAN 100 UNITS/ML, 3ML MEDIUM DOSE SS SQ-INSULIN SCH ×3 (08:38→20:45)
[2019-12-22] MEDS ORDERED: ALBUTEROL/IPRATROPIUM 2.5MG/0.5MG, 3 ML ONE (09:34)
[2019-12-22] MEDS ORDERED: ALBUTEROL/IPRATROPIUM 2.5MG/0.5MG, 3 ML NPPB PRN (10:30)
[2019-12-22] MEDS ORDERED: ALBUTEROL/IPRATROPIUM 2.5MG/0.5MG, 3 ML NPPB SCH (10:30)
[2019-12-22] MEDS: ALBUTEROL-IPRATROPIUM MDI INH INH SCH ×3 (14:00→21:24)
[2019-12-22] MEDS ORDERED: FUROSEMIDE 40 MG/4 ML IV SCH (20:30)
[2019-12-23] MEDS: DOXYCYCLINE 100 MG in DEXTROSE 5% 250 ML IV SCH ×3 (00:25→23:45)
[2019-12-23] MEDS: INSULIN REGULAR, HUMAN 100 UNITS/ML, 3ML MEDIUM DOSE SS SQ-INSULIN SCH ×2 (03:30→08:48)
[2019-12-23] MEDS: METOPROLOL TARTRATE 25 MG TAB PO SCH ×4 (03:38→19:52)
[2019-12-23 04:00] VITALS: BP 138/84
[2019-12-23 04:28] LABS: BASOPHILS % (AUTO) 0 % (0-1); EOSINOPHILS % (AUTO) 0 % (1-7); LYMPHOCYTES % (AUTO) 17 % (22-44); MEAN CORPUSCULAR HEMOGLOBIN 29.5 pg (27.0-34.8); MEAN PLATELET VOLUME 7.6 fL (7.4-10.4); MONOCYTES % (AUTO) 8 % (2-9); NEUTROPHILS % (AUTO) 74 % (42-75); PLATELET COUNT 247 x10^3/uL (130-400); RED BLOOD COUNT 4.19 x10^6/uL (3.82-5.3); RED CELL DISTRIBUTION WIDTH 15.8 % (9.6-15.2)
[2019-12-23 04:29] LABS: MD NO
[2019-12-23 04:39] LABS: ANION GAP 4 mmol/L (5-15); CALCIUM 7.6 mg/dL (8.5-10.1); CHLORIDE 97 mmol/L (98-107)
[2019-12-23 04:40] LABS: CREATININE 0.73 mg/dL (0.55-1.02)
[2019-12-23] MEDS: FAMOTIDINE 20 MG/2 ML IV SCH ×2 (04:44→16:04)
[2019-12-23] MEDS: ALBUTEROL-IPRATROPIUM MDI INH INH SCH ×5 (06:00→19:53)
[2019-12-23] MEDS: APIXABAN 5 MG TABLET PO SCH ×2 (08:47→19:52)
[2019-12-23] MEDS: INSULIN GLARGINE 100 UNITS/ML, PEN SQ-INSULIN SCH ×2 (08:48→20:00)
[2019-12-23] MEDS: THIAMINE 200 MG in SODIUM CHLORIDE 0.9% 50 ML IV SCH (08:58)
[2019-12-23] MEDS: INSULIN REGULAR 100 UNITS/ML, 3ML VIAL SQ-INSULIN SCH ×3 (12:02→19:59)
[2019-12-23] MEDS: CEFTRIAXONE PMX 1GM/50ML 50 ML IV SCH (12:55)
[2019-12-23 19:47] VITALS: BP 122/63
[2019-12-23] MEDS: GUAIFENESIN/DM 200-20MG, 10ML UDC PO PRN (19:53)
[2019-12-23 23:06] VITALS: BP 154/89
[2019-12-23] MEDS: HYDROcodone/APAP 5/325 TABLET PO PRN (23:45)
[2019-12-24 01:58] VITALS: BP 160/95
[2019-12-24 02:31] VITALS: BP 155/97
[2019-12-24] MEDS: METOPROLOL TARTRATE 25 MG TAB PO SCH ×4 (02:34→21:44)
[2019-12-24] MEDS: FAMOTIDINE 20 MG/2 ML IV SCH ×2 (04:10→17:03)
[2019-12-24] MEDS: HYDROcodone/APAP 5/325 TABLET PO PRN ×3 (04:16→21:51)
[2019-12-24] MEDS: ALBUTEROL-IPRATROPIUM MDI INH INH SCH ×5 (05:54→21:14)
[2019-12-24 06:06] LABS: BASOPHILS % (AUTO) 0 % (0-1); EOSINOPHILS % (AUTO) 1 % (1-7); LYMPHOCYTES % (AUTO) 24 % (22-44); MEAN CORPUSCULAR HEMOGLOBIN 29.2 pg (27.0-34.8); MEAN CORPUSCULAR HGB CONC 31.7 g/dL (32.4-35.8); MEAN PLATELET VOLUME 7.6 fL (7.4-10.4); MONOCYTES % (AUTO) 9 % (2-9); NEUTROPHILS % (AUTO) 67 % (42-75); PLATELET COUNT 227 x10^3/uL (130-400); RED BLOOD COUNT 4.32 x10^6/uL (3.82-5.3); RED CELL DISTRIBUTION WIDTH 15.7 % (9.6-15.2)
[2019-12-24 06:20] LABS: CHLORIDE 98 mmol/L (98-107)
[2019-12-24 06:30] LABS: MD NO
[2019-12-24 06:31] LABS: ANION GAP 4 mmol/L (5-15); CALCIUM 8.2 mg/dL (8.5-10.1); CREATININE 0.61 mg/dL (0.55-1.02)
[2019-12-24] MEDS: INSULIN REGULAR 100 UNITS/ML, 3ML VIAL SQ-INSULIN SCH ×5 (07:00→22:15)
[2019-12-24 07:15] VITALS: BP 129/81
[2019-12-24] MEDS: APIXABAN 5 MG TABLET PO SCH ×2 (09:37→21:44)
[2019-12-24] MEDS: THIAMINE 200 MG in SODIUM CHLORIDE 0.9% 50 ML IV SCH (09:37)
[2019-12-24] MEDS: INSULIN GLARGINE 100 UNITS/ML, PEN SQ-INSULIN SCH ×2 (09:38→22:15)
[2019-12-24 09:41] VITALS: BP 114/68
[2019-12-24 12:29] VITALS: BP 148/86
[2019-12-24] MEDS: CEFTRIAXONE PMX 1GM/50ML 50 ML IV SCH (13:12)
[2019-12-24] MEDS: DOXYCYCLINE 100 MG in DEXTROSE 5% 250 ML IV SCH (13:20)
[2019-12-24 19:26] VITALS: BP 146/81
[2019-12-24] MEDS: GUAIFENESIN ER 600 MG TABLET PO SCH (21:43)
[2019-12-25] MEDS: DOXYCYCLINE 100 MG in DEXTROSE 5% 250 ML IV SCH ×2 (00:22→11:17)
[2019-12-25 00:40] VITALS: BP 175/85
[2019-12-25] MEDS: HYDROcodone/APAP 5/325 TABLET PO PRN ×3 (02:15→21:30)
[2019-12-25] MEDS: METOPROLOL TARTRATE 25 MG TAB PO SCH ×4 (02:15→21:29)
[2019-12-25 05:21] VITALS: BP 159/87
[2019-12-25 06:22] LABS: ANION GAP 2 mmol/L (5-15); CALCIUM 8.6 mg/dL (8.5-10.1); CHLORIDE 100 mmol/L (98-107); CREATININE 0.57 mg/dL (0.55-1.02)
[2019-12-25 06:29] LABS: BASOPHILS % (AUTO) 1 % (0-1); EOSINOPHILS % (AUTO) 2 % (1-7); LYMPHOCYTES % (AUTO) 27 % (22-44); MEAN CORPUSCULAR HEMOGLOBIN 29.5 pg (27.0-34.8); MEAN CORPUSCULAR HGB CONC 32.1 g/dL (32.4-35.8); MEAN PLATELET VOLUME 7.7 fL (7.4-10.4); MONOCYTES % (AUTO) 9 % (2-9); NEUTROPHILS % (AUTO) 62 % (42-75); PLATELET COUNT 206 x10^3/uL (130-400); RED BLOOD COUNT 4.12 x10^6/uL (3.82-5.3); RED CELL DISTRIBUTION WIDTH 15.6 % (9.6-15.2)
[2019-12-25 06:45] LABS: MD NO
[2019-12-25] MEDS: INSULIN REGULAR 100 UNITS/ML, 3ML VIAL SQ-INSULIN SCH ×4 (07:00→21:29)
[2019-12-25] MEDS: ALBUTEROL-IPRATROPIUM MDI INH INH SCH ×5 (07:03→21:07)
[2019-12-25 07:20] VITALS: BP 149/83
[2019-12-25] MEDS ORDERED: LIDOCAINE 1%, 10ML ONE (08:18)
[2019-12-25] MEDS: FAMOTIDINE 20 MG TABLET PO SCH ×2 (09:05→21:30)
[2019-12-25] MEDS: APIXABAN 5 MG TABLET PO SCH ×2 (09:06→21:30)
[2019-12-25] MEDS: GUAIFENESIN ER 600 MG TABLET PO SCH ×2 (09:06→21:29)
[2019-12-25] MEDS: INSULIN GLARGINE 100 UNITS/ML, PEN SQ-INSULIN SCH ×2 (09:07→21:29)
[2019-12-25] MEDS: CEFTRIAXONE PMX 1GM/50ML 50 ML IV SCH (11:17)
[2019-12-25 12:39] VITALS: BP 148/72
[2019-12-25 19:33] VITALS: BP 179/92
[2019-12-26] VITALS (8 sets, daily range): BP systolic 148–181; BP diastolic 75–110
[2019-12-26] MEDS: DOXYCYCLINE 100 MG in DEXTROSE 5% 250 ML IV SCH (00:31)
[2019-12-26] MEDS: METOPROLOL TARTRATE 25 MG TAB PO SCH ×4 (03:59→20:25)
[2019-12-26] MEDS: GUAIFENESIN/DM 200-20MG, 10ML UDC PO PRN ×2 (04:42→14:24)
[2019-12-26] MEDS: HYDROcodone/APAP 5/325 TABLET PO PRN ×4 (04:42→20:30)
[2019-12-26] MEDS: ENALAPRILAT 1.25 MG/ML, 2ML IVPush PRN (04:49)
[2019-12-26] MEDS ORDERED: FAMOTIDINE 40 MG TABLET ONE (08:28)
[2019-12-26] MEDS: GUAIFENESIN ER 600 MG TABLET PO SCH ×2 (08:37→20:25)
[2019-12-26] MEDS: APIXABAN 5 MG TABLET PO SCH ×2 (08:37→20:25)
[2019-12-26] MEDS: INSULIN GLARGINE 100 UNITS/ML, PEN SQ-INSULIN SCH ×2 (08:39→20:25)
[2019-12-26] MEDS: INSULIN REGULAR 100 UNITS/ML, 3ML VIAL SQ-INSULIN SCH ×4 (08:39→20:26)
[2019-12-26] MEDS: FAMOTIDINE 20 MG TABLET PO SCH ×2 (08:40→20:25)
[2019-12-26 09:10] LABS: BASOPHILS % (AUTO) 0 % (0-1); EOSINOPHILS % (AUTO) 2 % (1-7); LYMPHOCYTES % (AUTO) 20 % (22-44); MEAN CORPUSCULAR HEMOGLOBIN 29.3 pg (27.0-34.8); MEAN CORPUSCULAR HGB CONC 32.1 g/dL (32.4-35.8); MONOCYTES % (AUTO) 7 % (2-9); NEUTROPHILS % (AUTO) 71 % (42-75); PLATELET COUNT 219 x10^3/uL (130-400); RED BLOOD COUNT 4.34 x10^6/uL (3.82-5.3); RED CELL DISTRIBUTION WIDTH 15.5 % (9.6-15.2)
[2019-12-26 09:12] LABS: MD NO
[2019-12-26 09:18] LABS: ANION GAP 5 mmol/L (5-15); CALCIUM 9.1 mg/dL (8.5-10.1); CHLORIDE 97 mmol/L (98-107); CREATININE 0.52 mg/dL (0.55-1.02)
[2019-12-26] MEDS: ALBUTEROL-IPRATROPIUM MDI INH INH SCH ×6 (10:35→23:17)
[2019-12-26] MEDS: CEFTRIAXONE PMX 1GM/50ML 50 ML IV SCH (12:19)
[2019-12-26] MEDS: DOXYCYCLINE 100MG TABLET PO SCH ×2 (12:31→20:25)
[2019-12-26] MEDS: LISINOPRIL 10 MG TABLET PO SCH (12:37)
[2019-12-27 02:15] VITALS: BP 183/114
[2019-12-27] MEDS: METOPROLOL TARTRATE 25 MG TAB PO SCH ×4 (02:24→20:18)
[2019-12-27] MEDS: ENALAPRILAT 1.25 MG/ML, 2ML IVPush PRN (02:24)
[2019-12-27] MEDS: HYDROcodone/APAP 5/325 TABLET PO PRN ×4 (02:25→22:13)
[2019-12-27] MEDS: INSULIN REGULAR 100 UNITS/ML, 3ML VIAL SQ-INSULIN SCH ×4 (07:00→20:17)
[2019-12-27 07:03] VITALS: BP 166/77
[2019-12-27] MEDS: ALBUTEROL-IPRATROPIUM MDI INH INH SCH ×4 (07:05→19:25)
[2019-12-27] MEDS ORDERED: ALBU6.7H8 INH (09:10)
[2019-12-27] MEDS ORDERED: ATOR40TA78 PO (09:10)
[2019-12-27] MEDS ORDERED: LISI-167 PO (09:10)
[2019-12-27] MEDS ORDERED: IPRA4AER INH (09:10)
[2019-12-27] MEDS ORDERED: APIX5TAB PO (09:10)
[2019-12-27] MEDS ORDERED: FLUT1BLS9 INH (09:10)
[2019-12-27] MEDS ORDERED: METO50TA6 PO (09:10)
[2019-12-27] MEDS ORDERED: OMEP-110 PO (09:10)
[2019-12-27] MEDS ORDERED: INSU100V8 SQ (09:10)
[2019-12-27] MEDS: DOXYCYCLINE 100MG TABLET PO SCH ×2 (09:54→20:17)
[2019-12-27] MEDS: LACTULOSE 10 GM/15 ML UDC PO SCH ×2 (09:54→20:16)
[2019-12-27] MEDS: GUAIFENESIN ER 600 MG TABLET PO SCH ×2 (09:55→20:17)
[2019-12-27] MEDS: LISINOPRIL 10 MG TABLET PO SCH (09:55)
[2019-12-27] MEDS: FAMOTIDINE 20 MG TABLET PO SCH ×2 (09:55→20:17)
[2019-12-27] MEDS: APIXABAN 5 MG TABLET PO SCH ×2 (10:11→20:17)
[2019-12-27] MEDS: INSULIN GLARGINE 100 UNITS/ML, PEN SQ-INSULIN SCH ×2 (10:21→20:17)
[2019-12-27 12:17] VITALS: BP 174/83
[2019-12-27] MEDS: CEFTRIAXONE PMX 1GM/50ML 50 ML IV SCH (13:15)
[2019-12-27 18:59] VITALS: BP 154/86
[2019-12-28 00:47] VITALS: BP 161/71
[2019-12-28] MEDS: METOPROLOL TARTRATE 25 MG TAB PO SCH ×3 (02:10→16:57)
[2019-12-28 06:50] VITALS: BP 110/66
[2019-12-28] MEDS: INSULIN REGULAR 100 UNITS/ML, 3ML VIAL SQ-INSULIN SCH ×2 (07:00→12:10)
[2019-12-28] MEDS: ALBUTEROL-IPRATROPIUM MDI INH INH SCH ×3 (07:17→14:04)
[2019-12-28] MEDS: LACTULOSE 10 GM/15 ML UDC PO SCH (09:11)
[2019-12-28] MEDS: FAMOTIDINE 20 MG TABLET PO SCH (09:11)
[2019-12-28] MEDS: DOXYCYCLINE 100MG TABLET PO SCH (09:11)
[2019-12-28] MEDS: APIXABAN 5 MG TABLET PO SCH (09:11)
[2019-12-28] MEDS: LISINOPRIL 10 MG TABLET PO SCH (09:12)
[2019-12-28] MEDS: GUAIFENESIN ER 600 MG TABLET PO SCH (09:12)
[2019-12-28] MEDS: CEFTRIAXONE PMX 1GM/50ML 50 ML IV SCH (12:05)
[2019-12-28] MEDS: INSULIN GLARGINE 100 UNITS/ML, PEN SQ-INSULIN SCH (12:12)
[2019-12-28 13:54] VITALS: BP 159/92
[2019-12-28] MEDS ORDERED: FLU VACC QS2020-21(6MOS UP)/PF 60MCG/0.5 ML SYR IM-VACC ONE (14:30)
== END 2019-12-28 19:24 | disposition home or self-care (01) | DRG 133 ==
LOC: ED 21:16 → EDIP 22:34 → CCU 12-21 00:39 → 3N 12-23 20:10
PROVIDERS: ADMIT Internal Medicine; ATTEND Hospitalist
PROC: 5A2204Z Restoration of Cardiac Rhythm, Single (ICD-10-PCS; principal; 2019-12-20)
PROC: 5A1945Z Respiratory Ventilation, 24-96 Consecutive Hours (ICD-10-PCS; 2019-12-20)
PROC: 0BH17EZ Insertion of Endotracheal Airway into Trachea, Via Natural or Artificial Opening (ICD-10-PCS; 2019-12-20)
PROC: 0W993ZZ Drainage of Right Pleural Cavity, Percutaneous Approach (ICD-10-PCS; 2019-12-25)
DX: J96.21 Acute and chronic respiratory failure with hypoxia (principal); I48.91 Unspecified atrial fibrillation; D64.9 Anemia, unspecified; E11.9 Type 2 diabetes mellitus without complications; E66.9 Obesity, unspecified; Z68.32 Body mass index [BMI] 32.0-32.9, adult; K21.9 Gastro-esophageal reflux disease without esophagitis; K50.90 Crohn's disease, unspecified, without complications; Y90.2 Blood alcohol level of 40-59 mg/100 ml; Z20.828 Contact with and (suspected) exposure to other viral communicable diseases; Z59.0 Homelessness; Z66 Do not resuscitate; Z79.01 Long term (current) use of anticoagulants; Z91.14 Patient's other noncompliance with medication regimen; Z93.3 Colostomy status; Z95.0 Presence of cardiac pacemaker; Z98.84 Bariatric surgery status; Z99.11 Dependence on respirator [ventilator] status; E78.5 Hyperlipidemia, unspecified; E83.42 Hypomagnesemia; E87.1 Hypo-osmolality and hyponatremia; F10.129 Alcohol abuse with intoxication, unspecified; F15.10 Other stimulant abuse, uncomplicated; F17.200 Nicotine dependence, unspecified, uncomplicated; I11.0 Hypertensive heart disease with heart failure; I25.10 Atherosclerotic heart disease of native coronary artery without angina pectoris; I25.2 Old myocardial infarction; I48.20 Chronic atrial fibrillation, unspecified; I49.5 Sick sinus syndrome; I50.33 Acute on chronic diastolic (congestive) heart failure; J44.0 Chronic obstructive pulmonary disease with (acute) lower respiratory infection; J96.22 Acute and chronic respiratory failure with hypercapnia; J44.1 Chronic obstructive pulmonary disease with (acute) exacerbation; Z88.0 Allergy status to penicillin; Z88.8 Allergy status to other drugs, medicaments and biological substances; E87.4 Mixed disorder of acid-base balance
CPT/HCPCS: 31500; 32555; 36415; 36600; 71045; 71250; 74177; 80048; 80053; 80162; 80307; 81001; 82803; 82962; 83690; 83735; 83880; 84100; 84443; 84478; 85025; 87070; 87081; 87086; 87147; 87205; 87635; 90686; 92960; 93005; 93306; 94002; 94003; 94640; 96374; 96375; 99291; G0378; J0696; J1815; J1940; J2250; J2405; J2704; J3010; J3411; J7060; Q9967; J0330; J1160; J2270; J2920; J3475; J7030; J7040

== ENCOUNTER 2020-01-21 09:03 | Inpatient (IN) | payer MEDICAID ==
[~2020-01-21] VITALS: Ht 165.1 cm; Wt 88.0 kg
[~2020-01-21 09:03] MED LIST changes: -ETOMIDATE 20 MG/10 ML ONE; +LISI-167 PO; -PROPOFOL 10 MG/ML, 100ML IV ONE; -SUCCINYLCHOLINE 20 MG/ML, 10ML ONE
[2020-01-21] MEDS ORDERED: PROPOFOL 10 MG/ML, 20ML ONE (09:17)
[2020-01-21] MEDS ORDERED: KETAMINE 10 MG/ML, 20ML ONE (09:21)
[2020-01-21] MEDS ORDERED: SODIUM CHLORIDE FLUSH 10ML SYR IVF ONE (09:30)
[2020-01-21] MEDS ORDERED: PROPOFOL 10 MG/ML, 20ML IVPush ONE (09:30)
[2020-01-21] MEDS ORDERED: KETAMINE 10 MG/ML, 20ML IV ONE (09:30)
--- NOTE | 2020-01-21 09:33 | NUR ---
PT. ARRIVES BY EMS WITH C/O FEVER, AMS, SOB AND RAPID AFIB WITH RVR. PT. WAS PLACED ON THE CEMENT FINISHER HELPER, PADS ON HER CHEST. IV ACCESS ESTABLISHED IN THE FIELD. PT. IS A & O X 3 WITH A GCS OF 14. PT.'S IV WAS FLUSHED. PT.'S BREATH SOUNDS ARE DIMINISHED THROUGHOUT. CAP REFILL IS LESS THAN 2 SECONDS. PULSES ARE PALPABLE IN ALL EXTREMITIES. PT. GORDON WNL. PT. HAS A STRONG PRODUCTIVE COUGH WITH BLOOD NOTICED IN HER MUCUS. PT.'S ABD. IS SOFT AND ROUND WITH BS + X 4 QUADS. PT. HAS A COLOSTOMY IN PLACE IN HER LEFT UPPER QUAD. PROCEDURE SEDATION IN PLACE. DR. MEHTA IS AT THE BEDSIDE EXPLAINING RISKS AND BENEFITS OF SYNCHRONIZED CARDIOVERSION. ED STAFF AT THE BEDSIDE. 12 LEAD EKG WAS DONE.
--- NOTE | 2020-01-21 09:45 | NUR ---
PT. WAS MEDICATED ORDERED. PROCEDURAL SEDATION WAS DONE. PT. WAS CONVERTED TO SINUS TACHYCARDIA AFTER THE CARDIOVERSION WAS COMPLETE. SHE TOLERATED THE PROCEDURE WELL.
[2020-01-21 09:55] LABS: INTERNATIONAL NORMALIZED RATIO 2.16 (0.93-1.1); PROTHROMBIN TIME 22.7 Seconds (9.6-11.5)
[2020-01-21 09:59] LABS: ALANINE AMINOTRANSFERASE 18 U/L (12-78); ANION GAP 15 mmol/L (5-15); CALCIUM 7.4 mg/dL (8.5-10.1); CHLORIDE 98 mmol/L (98-107); CREATININE 0.67 mg/dL (0.55-1.02)
[2020-01-21 10:03] LABS: ALKALINE PHOSPHATASE 115 U/L (45-117); BILIRUBIN,TOTAL 2.4 mg/dL (0.2-1.0); TROPONIN I 0.071 ng/mL (0.000-0.045)
--- NOTE | 2020-01-21 10:03 | NUR ---
PT. RECEIVED 250CC NS DRAFTER CHIEF DESIGN BY EMS.
[2020-01-21 10:04] LABS: MEAN CORPUSCULAR HEMOGLOBIN 29.5 pg (27.0-34.8); MEAN CORPUSCULAR HGB CONC 32.7 g/dL (32.4-35.8); MEAN PLATELET VOLUME 8.5 fL (7.4-10.4); PLATELET COUNT 144 x10^3/uL (130-400); RED BLOOD COUNT 4.19 x10^6/uL (3.82-5.3); RED CELL DISTRIBUTION WIDTH 17.4 % (9.6-15.2)
[2020-01-21] MEDS ORDERED: CEFTRIAXONE PMX 2GM/50ML 50 ML ONE (10:29)
[2020-01-21] MEDS ORDERED: ACETAMINOPHEN 650 MG SUPP PR ONE (10:30)
[2020-01-21] MEDS ORDERED: CEFTRIAXONE PMX 2GM/50ML 50 ML IVPB ONE (10:30)
[2020-01-21 10:39] LABS: MICROSCOPIC AUTO
[2020-01-21] MEDS ORDERED: ACETAMINOPHEN 650 MG SUPP ONE (10:47)
[2020-01-21] MEDS ORDERED: POTASSIUM CHLORIDE 20 MEQ TAB.ER.PRT ONE (10:48)
[2020-01-21] MEDS ORDERED: MAGNESIUM SULFATE PMX 4GM/100M 100 ML ONE (10:48)
[2020-01-21] MEDS ORDERED: NS + 40MEQ KCL 0 ML IV ONE (10:48)
[2020-01-21 11:00] LABS: AMPHETAMINE SCREEN, URINE Positive (Negative); BARBITURATE SCREEN, URINE Negative (Negative); BENZODIAZEPINE SCREEN, URINE Negative (Negative); CANNABINOID SCREEN, URINE Negative (Negative); COCAINE SCREEN, URINE Negative (Negative); METHADONE SCREEN, URINE Negative (Negative); OPIATE SCREEN, URINE Negative (Negative)
[2020-01-21] MEDS ORDERED: POTASSIUM CHLORIDE 20 MEQ TAB.ER.PRT PO ONE (11:00)
[2020-01-21] MEDS ORDERED: MAGNESIUM SULFATE PMX 4GM/100M 100 ML IVPB ONE (11:00)
[2020-01-21] MEDS ORDERED: POTASSIUM CHLORIDE 40 MEQ in SODIUM CHLORIDE 0.9% 500 ML IV ONE (11:00)
[2020-01-21 11:03] LABS: MD YES
[2020-01-21 11:05] LABS: LYMPH#(MANUAL) 0.78 x10^3/uL (1-3.4); LYMPHS% (MANUAL) 4 % (22-44); MONOS#(MANUAL) 1.36 x10^3/uL (0.3-2.7); MONOS% (MANUAL) 7 % (2-9)
[2020-01-21 11:07] LABS: BAND#(MANUAL) 3.88 x10^3/uL; BANDS%(MANUAL) 20 % (0-7); SEGS% (MANUAL) 69 % (42-75)
[2020-01-21 11:08] LABS: ANISOCYTOSIS 1+; POLYCHROMASIA 1+; TOXIC GRAN 1+
[2020-01-21 11:09] LABS: <PLATELET ESTIMATE> ADEQUATE; <PLT MORPHOLOGY> NORMAL PLT MORPH
[2020-01-21] MEDS ORDERED: VANCOMYCIN PER PHARMACY MC ONE (11:30)
[2020-01-21] MEDS ORDERED: VANCOMYCIN 2,200 MG in SODIUM CHLORIDE 0.9% 500 ML IV ONE (11:45)
--- NOTE | 2020-01-21 11:46 | NUR ---
A SECOND IV WAS ESTABLISHED. PT.'S MEDICATIONS ARE LABELED AND INFUSING ON PUMPS. PT. IS RESTING WITH BLANKETS IN PLACE. HOB IS ELEVATED GREATER THAN 30 DEGREES AND THE PT REMAINS ON THE CP MONITOR.
--- NOTE | 2020-01-21 12:10 | NUR ---
REPORT RECEIVED FROM SHERIF SHANKAR FOR TRANSFER OF PATIENT CARE.
--- NOTE | 2020-01-21 12:49 | NUR ---
20 gauge iv started left wrist, rosa phillips. assisted living manager at bedside for ekg.
[2020-01-21] MEDS ORDERED: ONDANSETRON 2MG/ML, 2ML IVPush PRN (13:00)
[2020-01-21] MEDS ORDERED: morphine SULFATE 10 MG/ML, 1ML IVPush PRN (13:00)
[2020-01-21] MEDS ORDERED: ACETAMINOPHEN 325 MG TABLET PO PRN (13:00)
[2020-01-21] MEDS ORDERED: ONDANSETRON ODT 4 MG PO PRN (13:00)
--- NOTE | 2020-01-21 13:02 | NUR ---
REPORT GIVEN TO SHERIF SONG ON [employer].
[2020-01-21] MEDS ORDERED: ALBUTEROL HFA 90 MCG/SPRAY INH PRN (13:30)
--- NOTE | 2020-01-21 13:33 | NUR ---
PATIENT TRANSFERRED IN STABLE CONDITION TO [facility] FLOOR VIA [facility] WITH HYDROCHLORIC MANUFACTURING SUPERVISOR. ALL PATIENT BELONGINGS GATHERED AND TAKEN TO FLOOR WITH PATIENT.
[2020-01-21 13:42] LABS: CHOLESTEROL, TOTAL 105 mg/dL (140-239)
[2020-01-21 13:45] VITALS: BP 117/70
[2020-01-21 13:51] LABS: CHOL/HDL RATIO 3.1; FREE T4 (FREE THYROXINE) 1.17 ng/dL (0.76-1.46); HDL CHOL % 32 % (28-40); HDL CHOLESTEROL (DIRECT) 34 mg/dL (40-60); LDL CHOLESTEROL,CALCULATED 54 mg/dL (54-169); LDL/HDL RATIO 1.6 (0.5-3.0); TRIGLYCERIDES 87 mg/dL (50-200); TROPONIN I 0.066 ng/mL (0.000-0.045); VLDL CHOLESTEROL 17 mg/dL (0-25)
[2020-01-21 13:57] VITALS: BP 117/70
[2020-01-21 14:06] LABS: C-REACTIVE PROTEIN, QUANT > 19.00 mg/dL (0.02-0.49)
[2020-01-21] MEDS: DEXAMETHASONE 4 MG/ML, 1ML IVPush SCH (14:14)
[2020-01-21] MEDS: METOPROLOL TARTRATE 25 MG TAB PO SCH ×2 (14:17→20:00)
[2020-01-21] MEDS: AZITHROMYCIN 500 MG in SODIUM CHLORIDE 0.9% 250 ML IV SCH (15:49)
[2020-01-21] MEDS: FUROSEMIDE 40 MG/4 ML IV SCH (17:26)
[2020-01-21] MEDS: ASCORBIC ACID 500 MG TABLET PO SCH (17:33)
[2020-01-21] MEDS: INSULIN REGULAR 100 UNITS/ML, 3ML VIAL SQ-INSULIN SCH ×2 (18:21→20:44)
[2020-01-21 18:25] LABS: TROPONIN I 0.057 ng/mL (0.000-0.045)
[2020-01-21 19:44] VITALS: BP 91/61
[2020-01-21] MEDS: APIXABAN 5 MG TABLET PO SCH (20:43)
[2020-01-21] MEDS: ATORVASTATIN 40 MG TABLET PO SCH (20:43)
[2020-01-22 01:13] LABS: TROPONIN I 0.022 ng/mL (0.000-0.045)
[2020-01-22 02:00] VITALS: BP 97/66
[2020-01-22] MEDS: METOPROLOL TARTRATE 25 MG TAB PO SCH ×4 (02:00→20:31)
[2020-01-22] MEDS: HYDROcodone/APAP 5/325 TABLET PO PRN ×3 (02:42→20:30)
[2020-01-22 07:02] VITALS: BP 98/64
[2020-01-22 07:23] LABS: MEAN CORPUSCULAR HEMOGLOBIN 29.6 pg (27.0-34.8); MEAN CORPUSCULAR HGB CONC 32.4 g/dL (32.4-35.8); MEAN PLATELET VOLUME 8.9 fL (7.4-10.4); PLATELET COUNT 144 x10^3/uL (130-400); RED BLOOD COUNT 4.08 x10^6/uL (3.82-5.3); RED CELL DISTRIBUTION WIDTH 17.5 % (9.6-15.2)
[2020-01-22 07:29] LABS: ANION GAP 7 mmol/L (5-15); CALCIUM 7.6 mg/dL (8.5-10.1); CHLORIDE 105 mmol/L (98-107)
[2020-01-22 07:32] LABS: CREATININE 1.02 mg/dL (0.55-1.02)
[2020-01-22 08:24] LABS: MD YES
[2020-01-22 08:29] LABS: BAND#(MANUAL) 4.23 x10^3/uL; BANDS%(MANUAL) 25 % (0-7); LYMPH#(MANUAL) 0.34 x10^3/uL (1-3.4); LYMPHS% (MANUAL) 2 % (22-44); METAMYELOCYTES# (MANUAL) 0.17 x10^3/uL (0-0); METAMYELOCYTES% (MANUAL) 1 % (0-1); MONOS#(MANUAL) 0.34 x10^3/uL (0.3-2.7); MONOS% (MANUAL) 2 % (2-9); SEG#(MANUAL) 11.83 x10^3/uL (1.8-6.8); SEGS% (MANUAL) 70 % (42-75)
[2020-01-22 08:30] LABS: <PLATELET ESTIMATE> ADEQUATE; <PLT MORPHOLOGY> NORMAL PLT MORPH; ANISOCYTOSIS 1+; PMNS WITH VACUOLES 1+; POLYCHROMASIA 1+; TOXIC GRAN 1+
[2020-01-22] MEDS: FUROSEMIDE 40 MG/4 ML IV SCH ×2 (09:18→16:39)
[2020-01-22] MEDS: OMEPRAZOLE 20 MG CAPSULE.DR PO SCH (09:18)
[2020-01-22] MEDS: DEXAMETHASONE 4 MG/ML, 1ML IVPush SCH (09:18)
[2020-01-22] MEDS: ASCORBIC ACID 500 MG TABLET PO SCH ×2 (09:18→16:40)
[2020-01-22] MEDS: CHOLECALCIFEROL 1,000 UNIT TABLET PO SCH (09:18)
[2020-01-22] MEDS: ZINC SULFATE 220 MG CAPSULE PO SCH (09:19)
[2020-01-22] MEDS: APIXABAN 5 MG TABLET PO SCH ×2 (09:19→20:29)
[2020-01-22 09:20] VITALS: BP 101/68
[2020-01-22] MEDS: INSULIN REGULAR 100 UNITS/ML, 3ML VIAL SQ-INSULIN SCH ×2 (10:26→12:18)
[2020-01-22 12:40] VITALS: BP 123/70
[2020-01-22] MEDS ORDERED: CEFTRIAXONE PMX 1GM/50ML 50 ML IV SCH (13:30)
[2020-01-22 15:20] VITALS: BP 106/66
[2020-01-22] MEDS: AZITHROMYCIN 500 MG in SODIUM CHLORIDE 0.9% 250 ML IV SCH (15:28)
[2020-01-22] MEDS ORDERED: CEFTRIAXONE PMX 1GM/50ML 50 ML IV ONE (15:30)
[2020-01-22] MEDS: INSULIN LISPRO 100 UNITS/ML, PEN SQ-INSULIN SCH ×2 (16:38→20:50)
[2020-01-22] MEDS ORDERED: OMNIPAQUE 350 MG/ML, 100ML BOTTLE ONE (18:02)
[2020-01-22 19:18] VITALS: BP 123/80
[2020-01-22] MEDS: TRAZODONE 50MG TABLET PO PRN (20:30)
[2020-01-22] MEDS: ATORVASTATIN 40 MG TABLET PO SCH (20:30)
[2020-01-22] MEDS: DOCUSATE 100 MG CAPSULE PO PRN (20:39)
[2020-01-23 00:03] VITALS: BP 121/82
[2020-01-23] MEDS: METOPROLOL TARTRATE 25 MG TAB PO SCH ×4 (02:25→21:12)
[2020-01-23] MEDS: HYDROcodone/APAP 5/325 TABLET PO PRN ×4 (02:25→22:51)
[2020-01-23 05:42] LABS: BASOPHILS % (AUTO) 0 % (0-1); EOSINOPHILS % (AUTO) 0 % (1-7); LYMPHOCYTES % (AUTO) 4 % (22-44); MEAN CORPUSCULAR HGB CONC 32.7 g/dL (32.4-35.8); MEAN PLATELET VOLUME 8.4 fL (7.4-10.4); MONOCYTES % (AUTO) 4 % (2-9); NEUTROPHILS % (AUTO) 92 % (42-75); PLATELET COUNT 168 x10^3/uL (130-400); RED BLOOD COUNT 3.86 x10^6/uL (3.82-5.3); RED CELL DISTRIBUTION WIDTH 17.8 % (9.6-15.2)
[2020-01-23 05:50] LABS: ANION GAP 5 mmol/L (5-15); CHLORIDE 99 mmol/L (98-107)
[2020-01-23 05:52] LABS: CREATININE 1.27 mg/dL (0.55-1.02)
[2020-01-23 06:27] LABS: MD SCAN
[2020-01-23 07:17] VITALS: BP 122/77
[2020-01-23] MEDS: ZINC SULFATE 220 MG CAPSULE PO SCH (09:37)
[2020-01-23] MEDS: INSULIN LISPRO 100 UNITS/ML, PEN SQ-INSULIN SCH ×4 (09:37→21:13)
[2020-01-23] MEDS: DEXAMETHASONE 4 MG/ML, 1ML IVPush SCH (09:37)
[2020-01-23] MEDS: FUROSEMIDE 40 MG/4 ML IV SCH ×2 (09:37→16:33)
[2020-01-23] MEDS: APIXABAN 5 MG TABLET PO SCH (09:37)
[2020-01-23] MEDS: ASCORBIC ACID 500 MG TABLET PO SCH ×2 (09:37→16:32)
[2020-01-23] MEDS: CHOLECALCIFEROL 1,000 UNIT TABLET PO SCH (09:39)
[2020-01-23] MEDS: OMEPRAZOLE 20 MG CAPSULE.DR PO SCH (09:39)
[2020-01-23] MEDS: CEFTRIAXONE PMX 2GM/50ML 50 ML IVPB SCH (14:26)
[2020-01-23 14:33] VITALS: BP 123/78
[2020-01-23] MEDS: AZITHROMYCIN 500 MG in SODIUM CHLORIDE 0.9% 250 ML IV SCH (15:39)
[2020-01-23] MEDS ORDERED: LORazepam 2 MG/ML, 1ML ONE (17:23)
[2020-01-23] MEDS: DOCUSATE 100 MG CAPSULE PO PRN (17:27)
[2020-01-23] MEDS ORDERED: LORazepam 2 MG/ML, 1ML IV PRN ×5 (17:30)
[2020-01-23] MEDS ORDERED: LORazepam 0.5MG TABLET PO PRN (17:30)
[2020-01-23] MEDS ORDERED: LORazepam 2 MG/ML, 1ML IVPush ONE (17:30)
[2020-01-23] MEDS ORDERED: LORazepam 1MG TABLET PO PRN ×4 (17:30)
[2020-01-23 20:13] VITALS: BP 128/81
[2020-01-23] MEDS: ATORVASTATIN 40 MG TABLET PO SCH (21:12)
[2020-01-23] MEDS: INSULIN GLARGINE 100 UNITS/ML, PEN SQ-INSULIN SCH (22:29)
[2020-01-23] MEDS: TRAZODONE 50MG TABLET PO PRN (22:52)
[2020-01-23 23:51] VITALS: BP 148/93
[2020-01-24] MEDS: METOPROLOL TARTRATE 25 MG TAB PO SCH ×3 (03:00→15:00)
[2020-01-24 06:58] VITALS: BP 135/85
[2020-01-24] MEDS: DEXAMETHASONE 4 MG/ML, 1ML IVPush SCH (09:27)
[2020-01-24] MEDS: FUROSEMIDE 40 MG/4 ML IV SCH ×2 (09:27→16:44)
[2020-01-24] MEDS: INSULIN LISPRO 100 UNITS/ML, PEN SQ-INSULIN SCH ×4 (09:28→20:34)
[2020-01-24] MEDS: ASCORBIC ACID 500 MG TABLET PO SCH (10:28)
[2020-01-24] MEDS: ZINC SULFATE 220 MG CAPSULE PO SCH (10:28)
[2020-01-24] MEDS: OMEPRAZOLE 20 MG CAPSULE.DR PO SCH (10:28)
[2020-01-24] MEDS: CHOLECALCIFEROL 1,000 UNIT TABLET PO SCH (10:28)
[2020-01-24] MEDS ORDERED: ENOXAPARIN 40 MG/0.4 ML SQ SCH (11:00)
[2020-01-24] MEDS ORDERED: APIXABAN 5 MG TABLET PO SCH (12:00)
[2020-01-24 12:14] LABS: MEAN CORPUSCULAR HEMOGLOBIN 29.5 pg (27.0-34.8); MEAN CORPUSCULAR HGB CONC 31.8 g/dL (32.4-35.8); PLATELET COUNT 161 x10^3/uL (130-400); RED BLOOD COUNT 4.05 x10^6/uL (3.82-5.3); RED CELL DISTRIBUTION WIDTH 17.6 % (9.6-15.2)
[2020-01-24 12:22] LABS: ALBUMIN 2.9 g/dL (3.4-5.0); ANION GAP 6 mmol/L (5-15); CALCIUM 8.2 mg/dL (8.5-10.1); CHLORIDE 96 mmol/L (98-107)
[2020-01-24 12:30] LABS: ALANINE AMINOTRANSFERASE 35 U/L (12-78); ALKALINE PHOSPHATASE 125 U/L (45-117); BILIRUBIN,TOTAL 0.4 mg/dL (0.2-1.0); CREATININE 1.53 mg/dL (0.55-1.02); TOTAL PROTEIN 7.9 g/dL (6.4-8.2); TROPONIN I < 0.015 ng/mL (0.000-0.045)
[2020-01-24 13:21] LABS: MD YES
[2020-01-24 13:24] LABS: <PLATELET ESTIMATE> ADEQUATE; <PLT MORPHOLOGY> NORMAL PLT MORPH; ANISOCYTOSIS 1+; BAND#(MANUAL) 0.91 x10^3/uL; BANDS%(MANUAL) 8 % (0-7); LYMPH#(MANUAL) 0.34 x10^3/uL (1-3.4); LYMPHS% (MANUAL) 3 % (22-44); MONOS#(MANUAL) 0.23 x10^3/uL (0.3-2.7); MONOS% (MANUAL) 2 % (2-9); PMNS WITH VACUOLES 1+; POLYCHROMASIA 1+; SEG#(MANUAL) 9.92 x10^3/uL (1.8-6.8); SEGS% (MANUAL) 87 % (42-75); TOXIC GRAN 1+
[2020-01-24] MEDS: CEFTRIAXONE PMX 2GM/50ML 50 ML IVPB SCH (15:22)
[2020-01-24] MEDS: AZITHROMYCIN 500 MG in SODIUM CHLORIDE 0.9% 250 ML IV SCH (16:04)
[2020-01-24] MEDS: METOPROLOL 1 MG/ML, 5ML IVPush SCH ×2 (16:44→22:44)
[2020-01-24] MEDS: methylPREDNISolone SOD SUCC 40 MG/ML IVPush SCH (16:44)
[2020-01-24] MEDS: HEPARIN 5,000 UNITS/ML, 1ML SQ SCH (16:44)
[2020-01-24] MEDS: THIAMINE 100 MG in SODIUM CHLORIDE 0.9% 50 ML IV SCH (17:27)
[2020-01-24] MEDS: SODIUM CHLORIDE 0.9% 1,000 ML IV SCH (17:27)
[2020-01-24] MEDS: INSULIN GLARGINE 100 UNITS/ML, PEN SQ-INSULIN SCH (20:35)
[2020-01-25] MEDS: methylPREDNISolone SOD SUCC 40 MG/ML IVPush SCH (00:31)
[2020-01-25] MEDS: HEPARIN 5,000 UNITS/ML, 1ML SQ SCH ×3 (00:31→17:01)
[2020-01-25] MEDS: SODIUM CHLORIDE 0.9% 1,000 ML IV SCH (02:00)
[2020-01-25] MEDS: METOPROLOL 1 MG/ML, 5ML IVPush SCH (04:34)
[2020-01-25 05:09] LABS: BASOPHILS % (AUTO) 0 % (0-1); EOSINOPHILS % (AUTO) 0 % (1-7); LYMPHOCYTES % (AUTO) 7 % (22-44); MEAN CORPUSCULAR HEMOGLOBIN 29.7 pg (27.0-34.8); MEAN CORPUSCULAR HGB CONC 32.1 g/dL (32.4-35.8); MEAN PLATELET VOLUME 7.8 fL (7.4-10.4); MONOCYTES % (AUTO) 5 % (2-9); NEUTROPHILS % (AUTO) 88 % (42-75); PLATELET COUNT 140 x10^3/uL (130-400); RED BLOOD COUNT 3.79 x10^6/uL (3.82-5.3); RED CELL DISTRIBUTION WIDTH 17.3 % (9.6-15.2)
[2020-01-25 05:13] LABS: INTERNATIONAL NORMALIZED RATIO 1.08 (0.93-1.1); PROTHROMBIN TIME 11.4 Seconds (9.6-11.5)
[2020-01-25 05:17] LABS: ALANINE AMINOTRANSFERASE 31 U/L (12-78); ALBUMIN 2.9 g/dL (3.4-5.0); ANION GAP 3 mmol/L (5-15); CALCIUM 8.1 mg/dL (8.5-10.1); CHLORIDE 102 mmol/L (98-107); CREATININE 0.98 mg/dL (0.55-1.02)
[2020-01-25 05:20] LABS: ALKALINE PHOSPHATASE 110 U/L (45-117); BILIRUBIN,TOTAL 0.4 mg/dL (0.2-1.0); TOTAL PROTEIN 7.2 g/dL (6.4-8.2)
[2020-01-25 05:21] LABS: MD NO
[2020-01-25] MEDS ORDERED: LORazepam 2 MG/ML, 1ML IVPush PRN (06:30)
[2020-01-25] MEDS: INSULIN LISPRO 100 UNITS/ML, PEN SQ-INSULIN SCH ×4 (06:49→23:19)
[2020-01-25] MEDS: FUROSEMIDE 40 MG/4 ML IV SCH ×2 (07:43→17:11)
[2020-01-25] MEDS: LABETALOL 5MG/ML, 20ML IVPush PRN ×2 (08:16→12:17)
[2020-01-25 08:52] VITALS: BP 167/93
[2020-01-25] MEDS ORDERED: ENALAPRILAT 1.25 MG/ML, 2ML ONE (14:02)
[2020-01-25] MEDS: ENALAPRILAT 1.25 MG/ML, 2ML IVPush PRN (14:10)
[2020-01-25 14:38] VITALS: BP 161/78
[2020-01-25] MEDS: CEFTRIAXONE PMX 2GM/50ML 50 ML IVPB SCH (16:01)
[2020-01-25] MEDS: AZITHROMYCIN 500 MG in SODIUM CHLORIDE 0.9% 250 ML IV SCH (16:51)
[2020-01-25] MEDS: THIAMINE 100 MG in SODIUM CHLORIDE 0.9% 50 ML IV SCH (17:01)
[2020-01-25 20:32] VITALS: BP 153/92
[2020-01-25] MEDS: INSULIN GLARGINE 100 UNITS/ML, PEN SQ-INSULIN SCH (23:18)
[2020-01-26 00:49] VITALS: BP 145/69
[2020-01-26] MEDS: HEPARIN 5,000 UNITS/ML, 1ML SQ SCH ×2 (01:09→08:30)
[2020-01-26] MEDS ORDERED: BUPIVACAINE/PF 0.5% ONE (06:45)
[2020-01-26] MEDS ORDERED: EPINEPHRINE 1 MG/ML, 1ML ONE (06:45)
[2020-01-26] MEDS ORDERED: FENTANYL PF 250 MCG/5ML ONE (06:57)
[2020-01-26] MEDS: INSULIN LISPRO 100 UNITS/ML, PEN SQ-INSULIN SCH ×3 (07:00→20:05)
[2020-01-26] MEDS ORDERED: CHLORHEXIDINE 15 ML UDC MM ONE (07:00)
[2020-01-26] MEDS ORDERED: CHLORHEXIDINE 15 ML UDC ONE (07:00)
[2020-01-26] MEDS ORDERED: PHENYLEPHRINE 10 MG/ML ONE (07:30)
[2020-01-26] MEDS: FUROSEMIDE 40 MG/4 ML IV SCH ×2 (07:30→11:31)
[2020-01-26] MEDS ORDERED: DEXAMETHASONE 4 MG/ML, 1ML ONE (07:50)
[2020-01-26] MEDS ORDERED: ROCURONIUM 10MG/ML,5ML ONE (08:26)
[2020-01-26] MEDS ORDERED: ONDANSETRON 2MG/ML, 2ML ONE (08:26)
[2020-01-26] MEDS ORDERED: PROPOFOL 10 MG/ML, 20ML ONE (08:26)
[2020-01-26] MEDS ORDERED: hydrALAzine 20 MG/ML, 1ML IV PRN (08:30)
[2020-01-26] MEDS ORDERED: OXYcodone 5 MG/5 ML ORAL.SOL UDC PO PRN (08:30)
[2020-01-26] MEDS ORDERED: ALBUTEROL/IPRATROPIUM 2.5MG/0.5MG, 3 ML NPPB PRN (08:30)
[2020-01-26] MEDS ORDERED: LABETALOL 5MG/ML, 20ML IV PRN (08:30)
[2020-01-26] MEDS ORDERED: PROMETHAZINE 25 MG/ML, 1ML IVPush PRN (08:30)
[2020-01-26] MEDS ORDERED: HYDROmorphone 1 MG/ML, 1ML INJ IVPush PRN (08:30)
[2020-01-26] MEDS ORDERED: FENTANYL PF 100 MCG/2ML IV PRN (08:30)
[2020-01-26] MEDS ORDERED: LORazepam 2 MG/ML, 1ML IVPush PRN (08:30)
[2020-01-26] MEDS ORDERED: ONDANSETRON 2MG/ML, 2ML IVPush PRN (08:30)
[2020-01-26] MEDS ORDERED: ACETAMINOPHEN 325 MG TABLET PO PRN (08:30)
[2020-01-26] MEDS ORDERED: PROPOFOL 100 ML IV ONE (09:19)
[2020-01-26] MEDS ORDERED: FENTANYL PF 100 MCG/2ML IVPush PRN (09:30)
[2020-01-26] MEDS: PROPOFOL 100 ML IV PRN ×6 (09:33→23:54)
[2020-01-26] MEDS: FENTANYL PF 1,000 MCG in SODIUM CHLORIDE 0.9% 80 ML IV PRN (11:02)
[2020-01-26] MEDS ORDERED: BISACODYL 10 MG SUPP PR PRN (15:00)
[2020-01-26] MEDS ORDERED: SENNA 176 MG/5 ML ORAL SOL NG PRN (15:00)
[2020-01-26] MEDS ORDERED: LIDOCAINE-MPF 1%, 2ML ENDO PRN (15:00)
[2020-01-26] MEDS ORDERED: DEXTROSE 4 GM TAB.CHEW PO PRN (15:00)
[2020-01-26] MEDS ORDERED: GLUCAGON 1 MG IM PRN (15:00)
[2020-01-26] MEDS ORDERED: LACTULOSE 20 GM/30 ML UDC NG PRN (15:00)
[2020-01-26] MEDS ORDERED: PHARMACY MAY ADJ FOR RENAL FX MC SCH (15:00)
[2020-01-26] MEDS ORDERED: FENTANYL PF 1,000 MCG in SODIUM CHLORIDE 0.9% 80 ML IV PRN (15:00)
[2020-01-26] MEDS ORDERED: SENNA/DOCUSATE TABLET NG PRN (15:00)
[2020-01-26] MEDS ORDERED: DEXTROSE 50%, 50ML SYRINGE IVPush PRN (15:00)
[2020-01-26] MEDS ORDERED: ONDANSETRON 2MG/ML, 2ML IV PRN (15:00)
[2020-01-26] MEDS ORDERED: NOREPINEPHRINE 8 MG in SODIUM CHLORIDE 0.9% 242 ML IV PRN (15:00)
[2020-01-26] MEDS ORDERED: PROPOFOL 100 ML IV PRN (15:00)
[2020-01-26] MEDS: CEFTRIAXONE PMX 2GM/50ML 50 ML IVPB SCH (16:04)
[2020-01-26] MEDS: THIAMINE 100 MG in SODIUM CHLORIDE 0.9% 50 ML IV SCH (16:10)
[2020-01-26] MEDS: AZITHROMYCIN 500 MG in SODIUM CHLORIDE 0.9% 250 ML IV SCH (16:36)
[2020-01-26] MEDS: SODIUM CHLORIDE FLUSH 10ML SYR IVF SCH (20:05)
[2020-01-26] MEDS: INSULIN GLARGINE 100 UNITS/ML, PEN SQ-INSULIN SCH (20:11)
[2020-01-27] MEDS: ALBUTEROL/IPRATROPIUM 2.5MG/0.5MG, 3 ML NPPB SCH ×6 (02:38→22:50)
[2020-01-27] MEDS: INSULIN LISPRO 100 UNITS/ML, PEN SQ-INSULIN SCH ×4 (03:35→21:00)
[2020-01-27] MEDS: PROPOFOL 100 ML IV PRN ×5 (03:56→21:35)
[2020-01-27] MEDS: FENTANYL PF 1,000 MCG in SODIUM CHLORIDE 0.9% 80 ML IV PRN (03:57)
[2020-01-27 04:39] LABS: ANION GAP 5 mmol/L (5-15); CALCIUM 8.4 mg/dL (8.5-10.1); CHLORIDE 100 mmol/L (98-107); CREATININE 0.63 mg/dL (0.55-1.02)
[2020-01-27 04:45] LABS: BASOPHILS % (AUTO) 0 % (0-1); EOSINOPHILS % (AUTO) 1 % (1-7); LYMPHOCYTES % (AUTO) 21 % (22-44); MEAN CORPUSCULAR HEMOGLOBIN 29.7 pg (27.0-34.8); MEAN CORPUSCULAR HGB CONC 33.2 g/dL (32.4-35.8); MEAN PLATELET VOLUME 7.6 fL (7.4-10.4); MONOCYTES % (AUTO) 10 % (2-9); NEUTROPHILS % (AUTO) 68 % (42-75); PLATELET COUNT 205 x10^3/uL (130-400); RED BLOOD COUNT 4.06 x10^6/uL (3.82-5.3); RED CELL DISTRIBUTION WIDTH 17.3 % (9.6-15.2)
[2020-01-27 04:52] LABS: MD NO
[2020-01-27] MEDS ORDERED: MAGNESIUM SULFATE PMX 4GM/100M 100 ML IVPB ONE (06:30)
[2020-01-27] MEDS: POTASSIUM CHLORIDE 10% 40 MEQ/30 ML UDC PO SCH ×2 (09:35→21:28)
[2020-01-27] MEDS: SODIUM CHLORIDE FLUSH 10ML SYR IVF SCH ×2 (09:37→21:00)
[2020-01-27] MEDS: CEFTRIAXONE PMX 2GM/50ML 50 ML IVPB SCH (14:17)
[2020-01-27] MEDS: AZITHROMYCIN 500 MG in SODIUM CHLORIDE 0.9% 250 ML IV SCH (14:53)
[2020-01-27] MEDS: THIAMINE 100 MG in SODIUM CHLORIDE 0.9% 50 ML IV SCH (16:05)
[2020-01-27] MEDS: INSULIN GLARGINE 100 UNITS/ML, PEN SQ-INSULIN SCH (21:00)
[2020-01-28] MEDS: FENTANYL PF 1,000 MCG in SODIUM CHLORIDE 0.9% 80 ML IV PRN (00:02)
[2020-01-28] MEDS: PROPOFOL 100 ML IV PRN ×3 (00:03→06:23)
[2020-01-28] MEDS: ALBUTEROL/IPRATROPIUM 2.5MG/0.5MG, 3 ML NPPB SCH ×3 (02:55→10:20)
[2020-01-28] MEDS: INSULIN LISPRO 100 UNITS/ML, PEN SQ-INSULIN SCH ×4 (03:00→19:53)
[2020-01-28 04:33] LABS: BASOPHILS % (AUTO) 0 % (0-1); EOSINOPHILS % (AUTO) 3 % (1-7); LYMPHOCYTES % (AUTO) 22 % (22-44); MEAN CORPUSCULAR HEMOGLOBIN 29.9 pg (27.0-34.8); MEAN CORPUSCULAR HGB CONC 33.2 g/dL (32.4-35.8); MEAN PLATELET VOLUME 7.5 fL (7.4-10.4); MONOCYTES % (AUTO) 8 % (2-9); NEUTROPHILS % (AUTO) 67 % (42-75); PLATELET COUNT 213 x10^3/uL (130-400); RED CELL DISTRIBUTION WIDTH 17.9 % (9.6-15.2)
[2020-01-28 04:41] LABS: MD NO
[2020-01-28 06:43] LABS: ANION GAP 4 mmol/L (5-15); CALCIUM 8.4 mg/dL (8.5-10.1); CHLORIDE 99 mmol/L (98-107); CREATININE 0.47 mg/dL (0.55-1.02)
[2020-01-28] MEDS ORDERED: DEXMEDETOMIDINE 200 MCG in SODIUM CHLORIDE 0.9% 48 ML IV ONE (08:30)
[2020-01-28] MEDS: SODIUM CHLORIDE FLUSH 10ML SYR IVF SCH ×2 (09:23→19:54)
[2020-01-28] MEDS: LABETALOL 5MG/ML, 20ML IVPush PRN ×2 (14:31→19:53)
[2020-01-28] MEDS: CEFTRIAXONE PMX 2GM/50ML 50 ML IVPB SCH (14:40)
[2020-01-28] MEDS: AZITHROMYCIN 500 MG in SODIUM CHLORIDE 0.9% 250 ML IV SCH (15:00)
[2020-01-28 20:19] VITALS: BP 167/88
[2020-01-28] MEDS: OXYcodone 5 MG/5 ML ORAL.SOL UDC PO PRN ×2 (21:06→22:19)
[2020-01-28] MEDS: INSULIN GLARGINE 100 UNITS/ML, PEN SQ-INSULIN SCH (22:38)
[2020-01-28] MEDS ORDERED: ENALAPRILAT 1.25 MG/ML, 1ML ONE (22:54)
[2020-01-28 23:02] VITALS: BP 173/94
[2020-01-28] MEDS: ENALAPRILAT 1.25 MG/ML, 2ML IVPush PRN (23:03)
[2020-01-28 23:35] VITALS: BP 154/86
[2020-01-29 00:40] VITALS: BP 153/80
[2020-01-29] MEDS ORDERED: morphine SULFATE 10 MG/ML, 1ML IVPush PRN ×3 (01:00→04:00)
[2020-01-29] MEDS ORDERED: MORPHINE SULFATE 4 MG/ML, 1ML ONE (01:20)
[2020-01-29] MEDS: OXYcodone 5 MG/5 ML ORAL.SOL UDC PO PRN ×4 (02:44→20:06)
[2020-01-29] MEDS: INSULIN LISPRO 100 UNITS/ML, PEN SQ-INSULIN SCH ×4 (02:58→20:26)
[2020-01-29 06:45] VITALS: BP 177/80
[2020-01-29] MEDS: SODIUM CHLORIDE FLUSH 10ML SYR IVF SCH ×2 (09:41→20:14)
[2020-01-29 12:09] VITALS: BP 136/71
[2020-01-29] MEDS: CEFTRIAXONE PMX 2GM/50ML 50 ML IVPB SCH (14:58)
[2020-01-29] MEDS: AZITHROMYCIN 500 MG in SODIUM CHLORIDE 0.9% 250 ML IV SCH (16:27)
[2020-01-29 19:47] VITALS: BP 136/83
[2020-01-29] MEDS: INSULIN GLARGINE 100 UNITS/ML, PEN SQ-INSULIN SCH (20:25)
[2020-01-30] MEDS: OXYcodone 5 MG/5 ML ORAL.SOL UDC PO PRN ×5 (00:10→22:41)
[2020-01-30 03:03] VITALS: BP 151/82
[2020-01-30 04:53] VITALS: BP 113/58
[2020-01-30 05:22] LABS: ANION GAP 7 mmol/L (5-15); CALCIUM 8.8 mg/dL (8.5-10.1); CHLORIDE 98 mmol/L (98-107); CREATININE 0.64 mg/dL (0.55-1.02)
[2020-01-30 05:42] LABS: BASOPHILS % (AUTO) 0 % (0-1); EOSINOPHILS % (AUTO) 2 % (1-7); LYMPHOCYTES % (AUTO) 16 % (22-44); MEAN CORPUSCULAR HEMOGLOBIN 29.9 pg (27.0-34.8); MEAN CORPUSCULAR HGB CONC 33.2 g/dL (32.4-35.8); MEAN PLATELET VOLUME 7.8 fL (7.4-10.4); MONOCYTES % (AUTO) 8 % (2-9); NEUTROPHILS % (AUTO) 74 % (42-75); PLATELET COUNT 271 x10^3/uL (130-400); RED BLOOD COUNT 4.49 x10^6/uL (3.82-5.3); RED CELL DISTRIBUTION WIDTH 17.7 % (9.6-15.2)
[2020-01-30 05:49] LABS: MD NO
[2020-01-30] MEDS: DILTIAZEM 5 MG/ML, 5ML IVPush PRN ×3 (06:21→08:50)
[2020-01-30 06:24] VITALS: BP 93/66
[2020-01-30 07:42] VITALS: BP 127/70
[2020-01-30] MEDS ORDERED: METOPROLOL TARTRATE 25 MG TAB PO SCH (08:30)
[2020-01-30 08:50] VITALS: BP 109/75
[2020-01-30] MEDS: SODIUM CHLORIDE FLUSH 10ML SYR IVF SCH ×2 (08:55→20:22)
[2020-01-30] MEDS: INSULIN LISPRO 100 UNITS/ML, PEN SQ-INSULIN SCH ×4 (09:02→20:25)
[2020-01-30 12:40] VITALS: BP 115/73
[2020-01-30] MEDS: CEFTRIAXONE PMX 2GM/50ML 50 ML IVPB SCH (14:58)
[2020-01-30] MEDS ORDERED: HEPARIN 5,000 UNITS/ML, 1ML IV ONE (15:30)
[2020-01-30] MEDS ORDERED: DILTIAZEM 125 MG in SODIUM CHLORIDE 0.9% 100 ML IV SCH (15:30)
[2020-01-30] MEDS: AZITHROMYCIN 500 MG in SODIUM CHLORIDE 0.9% 250 ML IV SCH (16:04)
[2020-01-30] MEDS: HEPARIN 25,000 UNITS/250ML PMX 250 ML IV PRN (17:32)
[2020-01-30] MEDS: METOPROLOL TARTRATE 25 MG TAB PO SCH (17:33)
[2020-01-30] MEDS: INSULIN GLARGINE 100 UNITS/ML, PEN SQ-INSULIN SCH (20:32)
[2020-01-31] MEDS: HEPARIN 5,000 UNITS/ML, 1ML IV PRN ×3 (00:53→17:35)
[2020-01-31 01:19] VITALS: BP 123/83
[2020-01-31] MEDS: OXYcodone 5 MG/5 ML ORAL.SOL UDC PO PRN ×3 (05:38→23:23)
[2020-01-31] MEDS: METOPROLOL TARTRATE 25 MG TAB PO SCH ×2 (05:41→17:52)
[2020-01-31 06:16] LABS: CHLORIDE 99 mmol/L (98-107)
[2020-01-31 06:18] LABS: BASOPHILS % (AUTO) 0 % (0-1); EOSINOPHILS % (AUTO) 2 % (1-7); LYMPHOCYTES % (AUTO) 21 % (22-44); MEAN CORPUSCULAR HEMOGLOBIN 29.5 pg (27.0-34.8); MEAN CORPUSCULAR HGB CONC 32.9 g/dL (32.4-35.8); MEAN PLATELET VOLUME 8.3 fL (7.4-10.4); MONOCYTES % (AUTO) 10 % (2-9); NEUTROPHILS % (AUTO) 68 % (42-75); PLATELET COUNT 261 x10^3/uL (130-400); RED BLOOD COUNT 4.41 x10^6/uL (3.82-5.3); RED CELL DISTRIBUTION WIDTH 17.1 % (9.6-15.2)
[2020-01-31 06:23] LABS: ALANINE AMINOTRANSFERASE 17 U/L (12-78); ALBUMIN 2.4 g/dL (3.4-5.0); ALKALINE PHOSPHATASE 92 U/L (45-117); ANION GAP 8 mmol/L (5-15); BILIRUBIN,TOTAL 0.5 mg/dL (0.2-1.0); CALCIUM 8.5 mg/dL (8.5-10.1); TOTAL PROTEIN 6.3 g/dL (6.4-8.2)
[2020-01-31 06:51] LABS: MD NO
[2020-01-31 07:05] VITALS: BP 116/76
[2020-01-31] MEDS: INSULIN LISPRO 100 UNITS/ML, PEN SQ-INSULIN SCH ×4 (08:04→22:16)
[2020-01-31] MEDS ORDERED: METOPROLOL TARTRATE 25 MG TAB PO ONE (09:00)
[2020-01-31] MEDS ORDERED: KETOROLAC 30 MG/1 ML IVPush PRN (09:00)
[2020-01-31] MEDS: SODIUM CHLORIDE FLUSH 10ML SYR IVF SCH ×2 (10:31→21:00)
[2020-01-31 12:43] VITALS: BP 121/59
[2020-01-31] MEDS: CEFTRIAXONE PMX 2GM/50ML 50 ML IVPB SCH (17:33)
[2020-01-31] MEDS: HEPARIN 25,000 UNITS/250ML PMX 250 ML IV PRN (17:38)
[2020-01-31 20:00] VITALS: BP 108/71
[2020-01-31] MEDS: INSULIN GLARGINE 100 UNITS/ML, PEN SQ-INSULIN SCH (22:17)
[2020-01-31 23:11] VITALS: BP 127/76
[2020-02-01] MEDS: HEPARIN 5,000 UNITS/ML, 1ML IV PRN (01:04)
[2020-02-01 01:41] VITALS: BP 117/74
[2020-02-01] MEDS: METOPROLOL TARTRATE 25 MG TAB PO SCH ×2 (05:36→17:18)
[2020-02-01] MEDS: OXYcodone 5 MG/5 ML ORAL.SOL UDC PO PRN ×3 (05:37→22:59)
[2020-02-01] MEDS: INSULIN LISPRO 100 UNITS/ML, PEN SQ-INSULIN SCH ×4 (07:00→21:27)
[2020-02-01 08:00] VITALS: BP 94/64
[2020-02-01] MEDS: SODIUM CHLORIDE FLUSH 10ML SYR IVF SCH ×2 (09:00→22:58)
[2020-02-01] MEDS: APIXABAN 5 MG TABLET PO SCH ×2 (11:23→22:56)
[2020-02-01 14:00] VITALS: BP 125/80
[2020-02-01 17:13] VITALS: BP 102/70
[2020-02-01] MEDS: CEFTRIAXONE PMX 2GM/50ML 50 ML IVPB SCH (17:16)
[2020-02-01 19:05] VITALS: BP 128/62
[2020-02-01] MEDS: INSULIN GLARGINE 100 UNITS/ML, PEN SQ-INSULIN SCH (22:57)
[2020-02-02 01:05] VITALS: BP 133/86
[2020-02-02] MEDS: OXYcodone 5 MG/5 ML ORAL.SOL UDC PO PRN ×4 (03:38→22:07)
[2020-02-02] MEDS: METOPROLOL TARTRATE 25 MG TAB PO SCH ×2 (06:24→16:51)
[2020-02-02 06:50] VITALS: BP 137/84
[2020-02-02 06:58] LABS: ANION GAP 7 mmol/L (5-15); CALCIUM 8.8 mg/dL (8.5-10.1); CHLORIDE 101 mmol/L (98-107)
[2020-02-02] MEDS: INSULIN LISPRO 100 UNITS/ML, PEN SQ-INSULIN SCH ×4 (07:00→20:41)
[2020-02-02 07:01] LABS: BASOPHILS % (AUTO) 1 % (0-1); EOSINOPHILS % (AUTO) 2 % (1-7); LYMPHOCYTES % (AUTO) 22 % (22-44); MEAN CORPUSCULAR HEMOGLOBIN 29.3 pg (27.0-34.8); MEAN CORPUSCULAR HGB CONC 33.2 g/dL (32.4-35.8); MEAN PLATELET VOLUME 7.8 fL (7.4-10.4); MONOCYTES % (AUTO) 13 % (2-9); NEUTROPHILS % (AUTO) 62 % (42-75); PLATELET COUNT 282 x10^3/uL (130-400); RED BLOOD COUNT 4.24 x10^6/uL (3.82-5.3); RED CELL DISTRIBUTION WIDTH 17.5 % (9.6-15.2)
[2020-02-02 07:02] LABS: HCT (SEDRATE) 37.5 % (34.6-47.8); MD NO
[2020-02-02] MEDS: APIXABAN 5 MG TABLET PO SCH ×2 (10:53→20:39)
[2020-02-02] MEDS: SODIUM CHLORIDE FLUSH 10ML SYR IVF SCH ×2 (10:53→20:40)
[2020-02-02 13:58] VITALS: BP 139/86
[2020-02-02] MEDS: FUROSEMIDE 40 MG/4 ML IV SCH (16:50)
[2020-02-02] MEDS: CEFTRIAXONE PMX 2GM/50ML 50 ML IVPB SCH (16:51)
[2020-02-02] MEDS: INSULIN GLARGINE 100 UNITS/ML, PEN SQ-INSULIN SCH (20:41)
[2020-02-02 20:51] VITALS: BP 97/61
[2020-02-03 01:28] VITALS: BP 110/77
[2020-02-03] MEDS: OXYcodone 5 MG/5 ML ORAL.SOL UDC PO PRN ×2 (02:41→11:24)
[2020-02-03] MEDS: METOPROLOL TARTRATE 25 MG TAB PO SCH (06:02)
[2020-02-03 07:45] VITALS: BP 125/81
[2020-02-03] MEDS: INSULIN LISPRO 100 UNITS/ML, PEN SQ-INSULIN SCH ×2 (08:19→11:21)
[2020-02-03] MEDS: APIXABAN 5 MG TABLET PO SCH (08:20)
[2020-02-03] MEDS: FUROSEMIDE 40 MG/4 ML IV SCH (08:20)
[2020-02-03] MEDS: SODIUM CHLORIDE FLUSH 10ML SYR IVF SCH (08:20)
[2020-02-03 14:49] VITALS: BP 120/77
== END 2020-02-03 16:15 | disposition left against medical advice (07) | DRG 710 ==
LOC: ED 10:44 → SUATTDRO 11:27 → ORIP 12:38 → 4EST 13:32 → CCU 01-24 12:30 → 3N 01-25 19:24 → 4NE 01-26 00:20 → CCU 01-26 09:04 → 4NW 01-28 17:49 → 5SO 01-30 05:45
PROVIDERS: ADMIT Hospitalist; ATTEND Internal Medicine
PROC: 5A2204Z Restoration of Cardiac Rhythm, Single (ICD-10-PCS; 2020-01-21)
PROC: 0T9B70Z Drainage of Bladder with Drainage Device, Via Natural or Artificial Opening (ICD-10-PCS; 2020-01-21)
PROC: 5A1945Z Respiratory Ventilation, 24-96 Consecutive Hours (ICD-10-PCS; 2020-01-26)
PROC: 0BH17EZ Insertion of Endotracheal Airway into Trachea, Via Natural or Artificial Opening (ICD-10-PCS; 2020-01-26)
PROC: 0W9B30Z Drainage of Left Pleural Cavity with Drainage Device, Percutaneous Approach (ICD-10-PCS; 2020-01-26)
PROC: 0BNL4ZZ Release Left Lung, Percutaneous Endoscopic Approach (ICD-10-PCS; principal; 2020-01-26 07:30)
DX: A41.9 Sepsis, unspecified organism (principal); D68.69 Other thrombophilia; E11.65 Type 2 diabetes mellitus with hyperglycemia; E78.5 Hyperlipidemia, unspecified; E83.42 Hypomagnesemia; E87.1 Hypo-osmolality and hyponatremia; E87.2 Acidosis; Z20.828 Contact with and (suspected) exposure to other viral communicable diseases; I50.23 Acute on chronic systolic (congestive) heart failure; J86.9 Pyothorax without fistula; E87.6 Hypokalemia; E88.09 Other disorders of plasma-protein metabolism, not elsewhere classified; F10.239 Alcohol dependence with withdrawal, unspecified; F41.9 Anxiety disorder, unspecified; G93.41 Metabolic encephalopathy; I21.A1 Myocardial infarction type 2; I48.92 Unspecified atrial flutter; I48.20 Chronic atrial fibrillation, unspecified; J18.9 Pneumonia, unspecified organism; I49.5 Sick sinus syndrome; J44.1 Chronic obstructive pulmonary disease with (acute) exacerbation; I11.0 Hypertensive heart disease with heart failure; J96.01 Acute respiratory failure with hypoxia; J96.02 Acute respiratory failure with hypercapnia; K43.5 Parastomal hernia without obstruction or gangrene; N17.0 Acute kidney failure with tubular necrosis; R65.20 Severe sepsis without septic shock; Z59.0 Homelessness; Z79.01 Long term (current) use of anticoagulants; Z86.14 Personal history of Methicillin resistant Staphylococcus aureus infection; Z88.0 Allergy status to penicillin; Z88.1 Allergy status to other antibiotic agents; Z90.710 Acquired absence of both cervix and uterus; Z95.0 Presence of cardiac pacemaker; Z99.11 Dependence on respirator [ventilator] status; Z82.49 Family history of ischemic heart disease and other diseases of the circulatory system; Z83.3 Family history of diabetes mellitus; Z89.021 Acquired absence of right finger(s)
CPT/HCPCS: 36415; 36600; 71045; 71275; 74018; 74176; 80048; 80053; 80061; 80307; 81001; 82247; 82803; 82962; 83605; 83615; 83735; 83880; 84100; 84132; 84145; 84439; 84443; 84478; 84484; 85025; 85379; 85520; 85610; 85651; 86140; 86480; 87015; 87040; 87070; 87075; 87081; 87102; 87116; 87176; 87205; 87206; 88304; 88305; 88312; 88341; 88342; 93005; 94002; 94003; 94640; 96374; 96375; 99291; C1729; G0378; J0171; J0456; J0696; J1100; J1644; J1815; J1885; J1940; J2405; J2704; J3010; J3370; J3411; J3480; Q0162; Q9967; J0360; J2060; J2270; J2370; J2920; J3475; J7030; J7040; J7050; Q0177; U0003

== ENCOUNTER 2020-02-08 09:56 | Inpatient (IN) | payer MEDICAID ==
[~2020-02-08] VITALS: Ht 170.2 cm; Wt 91.0 kg
[~2020-02-08 09:56] MED LIST changes: -CLIN300C8 PO; +CLIN300C9 PO
[2020-02-08] MEDS ORDERED: CEFTRIAXONE PMX 1GM/50ML 50 ML IVPB ONE (10:30)
[2020-02-08] MEDS ORDERED: SODIUM CHLORIDE FLUSH 10ML SYR IVF ONE (10:30)
[2020-02-08] MEDS ORDERED: SODIUM CHLORIDE 0.9% 1,000ML IVBOLUS ONE (10:30)
[2020-02-08] MEDS ORDERED: METOPROLOL 1 MG/ML, 5ML IVPush ONE (10:30)
[2020-02-08] MEDS ORDERED: METOPROLOL 1 MG/ML, 5ML ONE (10:35)
[2020-02-08] MEDS ORDERED: CEFTRIAXONE PMX 1GM/50ML 50 ML ONE (10:35)
--- NOTE | 2020-02-08 11:07 | NUR ---
METOPROLOL HELD DUE TO HOTN, PROVIDER AWARE, WILL REASSESS
--- NOTE | 2020-02-08 11:07 | NUR ---
PT BIB [facility] FOR [facility] COLOSTOMY BAG RUPTURE. WHILE TRANSPORTED TO ROOM PT. C/O NAUSEA, CHEST TIGHTNESS, SOB. HOTN ON ARRIVAL. MONITORS CONNECTED, EKG COMPLETE. SIGNIFICANT OTHER AT BEDSIDE, WARM BLANKET PROVIDED.
--- NOTE | 2020-02-08 11:09 | NUR ---
PT. WAS ASKED TO REMOVE HOME CONTAINER FROM POSSESSION. PT AGITATED WHEN ASKED NOT TO DRINK FLUIDS AT THIS TIME. CONTINUES WITH AGITATION STATING "I'LL JUST LEAVE". RN CONTINUED WITH IV START WHILE COMMUNICATING WITH PT. IN CALM TONE. SIGNIFICANT OTHER AT BEDSIDE, REMINDED NUMEROUS TIMES TO KEEP MASK ON. HOSPITAL MASK PROVIDED.
[2020-02-08 11:12] LABS: BASOPHILS % (AUTO) 1 % (0-1); EOSINOPHILS % (AUTO) 10 % (1-7); LYMPHOCYTES % (AUTO) 24 % (22-44); MEAN CORPUSCULAR HEMOGLOBIN 29.8 pg (27.0-34.8); MEAN CORPUSCULAR HGB CONC 33.6 g/dL (32.4-35.8); MEAN PLATELET VOLUME 7.8 fL (7.4-10.4); MONOCYTES % (AUTO) 7 % (2-9); NEUTROPHILS % (AUTO) 58 % (42-75); PLATELET COUNT 255 x10^3/uL (130-400); RED BLOOD COUNT 3.97 x10^6/uL (3.82-5.3); RED CELL DISTRIBUTION WIDTH 17.4 % (9.6-15.2)
[2020-02-08 11:25] LABS: ALBUMIN 2.9 g/dL (3.4-5.0); ANION GAP 9 mmol/L (5-15); CALCIUM 8.3 mg/dL (8.5-10.1); CHLORIDE 106 mmol/L (98-107)
[2020-02-08 11:26] LABS: MD NO
[2020-02-08 11:29] LABS: ALANINE AMINOTRANSFERASE 31 U/L (12-78); ALKALINE PHOSPHATASE 111 U/L (45-117); BILIRUBIN,TOTAL 0.6 mg/dL (0.2-1.0); CREATININE 0.84 mg/dL (0.55-1.02); TOTAL PROTEIN 7.2 g/dL (6.4-8.2)
[2020-02-08] MEDS ORDERED: OMNIPAQUE 350 MG/ML, 75ML BOTTLE ONE (12:05)
--- NOTE | 2020-02-08 12:08 | NUR ---
TASK RN: MADE AWARE OF PT BP
[2020-02-08] MEDS ORDERED: SODIUM CHLORIDE 0.9% 1,000 ML IV ONE (13:00)
--- NOTE | 2020-02-08 15:15 | NUR ---
HOSPITALIST AT BEDSIDE DISCUSSING PLAN OF CARE. OSTOMY CARE DONE. WAFER AND BAG CHANGED
[2020-02-08] MEDS ORDERED: ENOXAPARIN 40 MG/0.4 ML SQ SCH (16:30)
[2020-02-08] MEDS ORDERED: LABETALOL 5MG/ML, 20ML IVPush PRN (16:30)
[2020-02-08] MEDS ORDERED: BUTALB/APAP/CAFFEINE 50MG/325MG/40MG PO PRN (16:30)
[2020-02-08] MEDS ORDERED: LORazepam 1MG TABLET PO PRN ×2 (16:30)
[2020-02-08] MEDS ORDERED: ONDANSETRON 2MG/ML, 2ML IVPush PRN (16:30)
[2020-02-08] MEDS ORDERED: LORazepam 2 MG/ML, 1ML IV PRN ×5 (16:30)
[2020-02-08] MEDS ORDERED: GUAIFENESIN/DM 200-20MG, 10ML UDC PO PRN (16:30)
[2020-02-08] MEDS ORDERED: ENALAPRILAT 1.25 MG/ML, 2ML IVPush PRN (16:30)
[2020-02-08] MEDS ORDERED: ONDANSETRON ODT 4 MG PO PRN (16:30)
[2020-02-08] MEDS ORDERED: LACTATED RINGERS 1,000 ML IVBOLUS ONE (17:00)
[2020-02-08] MEDS ORDERED: ALBUTEROL HFA 90 MCG/SPRAY INH PRN (17:00)
[2020-02-08] MEDS ORDERED: LORazepam 2 MG/ML, 1ML ONE (17:43)
--- NOTE | 2020-02-08 18:15 | NUR ---
REPORT GIVEN TO ERICA GORMAN
[2020-02-08 19:52] VITALS: BP 102/72
[2020-02-08] MEDS: ATORVASTATIN 40 MG TABLET PO SCH (21:00)
[2020-02-08] MEDS: INSULIN LISPRO 100 UNITS/ML, PEN SQ-INSULIN SCH (21:00)
[2020-02-08] MEDS: METOPROLOL TARTRATE 50 MG TAB PO SCH (21:00)
[2020-02-08] MEDS: MELATONIN 5 MG TABLET PO SCH (21:00)
[2020-02-08] MEDS: APIXABAN 5 MG TABLET PO SCH (21:00)
[2020-02-08] MEDS: NICOTINE 21 MG/24 HR PATCH.TD24 TD SCH (21:02)
[2020-02-08] MEDS: BACLOFEN 10 MG TABLET PO PRN (23:08)
[2020-02-08] MEDS: CEFTRIAXONE PMX 1GM/50ML 50 ML IV SCH (23:51)
[2020-02-09 00:19] VITALS: BP 118/77
[2020-02-09] MEDS: BUTALB/APAP/CAFFEINE 50MG/325MG/40MG PO PRN ×2 (02:10→07:48)
[2020-02-09 06:18] LABS: BASOPHILS % (AUTO) 1 % (0-1); EOSINOPHILS % (AUTO) 15 % (1-7); LYMPHOCYTES % (AUTO) 36 % (22-44); MEAN CORPUSCULAR HEMOGLOBIN 30.2 pg (27.0-34.8); MEAN CORPUSCULAR HGB CONC 33.5 g/dL (32.4-35.8); MEAN PLATELET VOLUME 7.8 fL (7.4-10.4); MONOCYTES % (AUTO) 8 % (2-9); NEUTROPHILS % (AUTO) 41 % (42-75); PLATELET COUNT 212 x10^3/uL (130-400); RED CELL DISTRIBUTION WIDTH 17.5 % (9.6-15.2)
[2020-02-09] MEDS: OMEPRAZOLE 20 MG CAPSULE.DR PO SCH (06:18)
[2020-02-09] MEDS: ASPIRIN 325 MG TABLET EC PO SCH (06:18)
[2020-02-09 06:21] LABS: MD NO
[2020-02-09 06:31] LABS: ALBUMIN 2.7 g/dL (3.4-5.0); ANION GAP 4 mmol/L (5-15); CHLORIDE 105 mmol/L (98-107)
[2020-02-09 06:43] LABS: ALANINE AMINOTRANSFERASE 27 U/L (12-78); ALKALINE PHOSPHATASE 103 U/L (45-117); BILIRUBIN,TOTAL 0.3 mg/dL (0.2-1.0); CREATININE 0.65 mg/dL (0.55-1.02); TOTAL PROTEIN 6.9 g/dL (6.4-8.2)
[2020-02-09] MEDS: METOPROLOL TARTRATE 50 MG TAB PO SCH ×2 (07:48→21:00)
[2020-02-09] MEDS: APIXABAN 5 MG TABLET PO SCH ×2 (07:48→21:00)
[2020-02-09] MEDS: LORazepam 0.5MG TABLET PO PRN ×2 (07:49→13:04)
[2020-02-09] MEDS: INSULIN LISPRO 100 UNITS/ML, PEN SQ-INSULIN SCH ×4 (08:02→21:00)
[2020-02-09] MEDS: SENNA/DOCUSATE TABLET PO SCH (08:06)
[2020-02-09] MEDS: ACETAMINOPHEN 325 MG TABLET PO PRN (08:23)
[2020-02-09 08:29] VITALS: BP 114/74
[2020-02-09 08:41] VITALS: BP 96/65
[2020-02-09] MEDS ORDERED: LISINOPRIL 10 MG TABLET PO SCH (09:00)
[2020-02-09] MEDS ORDERED: NICOTINE 21 MG/24 HR PATCH.TD24 TD SCH (09:00)
[2020-02-09] MEDS: MAGNESIUM OXIDE 400 MG TABLET PO SCH (10:43)
[2020-02-09] MEDS: DIGOXIN 0.25 MG TABLET PO SCH (10:43)
[2020-02-09] MEDS: CEFTRIAXONE PMX 1GM/50ML 50 ML IV SCH (11:20)
[2020-02-09 12:58] VITALS: BP 101/66
[2020-02-09] MEDS: BACLOFEN 10 MG TABLET PO PRN ×2 (12:58→21:00)
[2020-02-09] MEDS: LORazepam 1MG TABLET PO PRN ×2 (17:01→21:00)
[2020-02-09] MEDS: CEFAZOLIN PMX 2GM/50ML 50 ML IVPB SCH (17:01)
[2020-02-09 19:04] VITALS: BP 134/80
[2020-02-09] MEDS: MELATONIN 5 MG TABLET PO SCH (21:00)
[2020-02-09] MEDS: ATORVASTATIN 40 MG TABLET PO SCH (21:00)
[2020-02-09] MEDS: NICOTINE 21 MG/24 HR PATCH.TD24 TD SCH (21:00)
[2020-02-10] MEDS: CEFAZOLIN PMX 2GM/50ML 50 ML IVPB SCH ×3 (01:00→16:15)
[2020-02-10 04:59] VITALS: BP 150/95
[2020-02-10] MEDS: OMEPRAZOLE 20 MG CAPSULE.DR PO SCH (06:19)
[2020-02-10] MEDS: ASPIRIN 325 MG TABLET EC PO SCH (06:19)
[2020-02-10] MEDS: INSULIN LISPRO 100 UNITS/ML, PEN SQ-INSULIN SCH ×4 (07:00→22:05)
[2020-02-10 07:07] VITALS: BP 144/90
[2020-02-10] MEDS: MAGNESIUM OXIDE 400 MG TABLET PO SCH (07:51)
[2020-02-10] MEDS: APIXABAN 5 MG TABLET PO SCH ×2 (07:51→22:00)
[2020-02-10] MEDS: SENNA/DOCUSATE TABLET PO SCH (07:52)
[2020-02-10] MEDS: METOPROLOL TARTRATE 50 MG TAB PO SCH ×2 (07:52→22:00)
[2020-02-10] MEDS: DIGOXIN 0.25 MG TABLET PO SCH (07:52)
[2020-02-10] MEDS: NICOTINE 21 MG/24 HR PATCH.TD24 TD SCH (07:52)
[2020-02-10] MEDS: BUTALB/APAP/CAFFEINE 50MG/325MG/40MG PO PRN (08:01)
[2020-02-10] MEDS: LORazepam 1MG TABLET PO PRN ×3 (08:02→18:18)
[2020-02-10] MEDS: ACETAMINOPHEN 325 MG TABLET PO PRN ×2 (11:29→18:18)
[2020-02-10 14:29] VITALS: BP 133/89
[2020-02-10 19:29] VITALS: BP 150/77
[2020-02-10] MEDS: ATORVASTATIN 40 MG TABLET PO SCH (22:00)
[2020-02-10] MEDS: MELATONIN 5 MG TABLET PO SCH (22:00)
[2020-02-10] MEDS: KETOROLAC 30 MG/1 ML IVPush SCH (22:05)
[2020-02-11 00:19] VITALS: BP 129/82
[2020-02-11] MEDS: CEFAZOLIN PMX 2GM/50ML 50 ML IVPB SCH ×3 (00:32→16:31)
[2020-02-11] MEDS: KETOROLAC 30 MG/1 ML IVPush SCH ×2 (03:53→09:40)
[2020-02-11] MEDS: INSULIN LISPRO 100 UNITS/ML, PEN SQ-INSULIN SCH ×4 (06:24→22:16)
[2020-02-11] MEDS: ASPIRIN 325 MG TABLET EC PO SCH (06:24)
[2020-02-11] MEDS: OMEPRAZOLE 20 MG CAPSULE.DR PO SCH (06:24)
[2020-02-11 06:59] VITALS: BP 141/91
[2020-02-11 07:43] LABS: BASOPHILS % (AUTO) 1 % (0-1); EOSINOPHILS % (AUTO) 16 % (1-7); LYMPHOCYTES % (AUTO) 39 % (22-44); MEAN CORPUSCULAR HGB CONC 32.7 g/dL (32.4-35.8); MEAN PLATELET VOLUME 8.1 fL (7.4-10.4); MONOCYTES % (AUTO) 7 % (2-9); NEUTROPHILS % (AUTO) 36 % (42-75); PLATELET COUNT 216 x10^3/uL (130-400); RED BLOOD COUNT 3.59 x10^6/uL (3.82-5.3); RED CELL DISTRIBUTION WIDTH 17.8 % (9.6-15.2)
[2020-02-11 07:48] LABS: MD NO
[2020-02-11] MEDS: SENNA/DOCUSATE TABLET PO SCH (08:28)
[2020-02-11] MEDS: MAGNESIUM OXIDE 400 MG TABLET PO SCH (08:29)
[2020-02-11] MEDS: METOPROLOL TARTRATE 50 MG TAB PO SCH ×2 (08:29→21:07)
[2020-02-11] MEDS: APIXABAN 5 MG TABLET PO SCH ×2 (08:29→21:07)
[2020-02-11] MEDS: NICOTINE 21 MG/24 HR PATCH.TD24 TD SCH (08:29)
[2020-02-11] MEDS: DIGOXIN 0.25 MG TABLET PO SCH (08:29)
[2020-02-11 11:12] LABS: ANION GAP 5 mmol/L (5-15); CALCIUM 8.4 mg/dL (8.5-10.1); CHLORIDE 109 mmol/L (98-107); CREATININE 0.65 mg/dL (0.55-1.02)
[2020-02-11] MEDS: BUTALB/APAP/CAFFEINE 50MG/325MG/40MG PO PRN (11:12)
[2020-02-11] MEDS ORDERED: HYDROmorphone 1 MG/ML, 1ML INJ IV PRN (12:30)
[2020-02-11 12:45] VITALS: BP 157/93
[2020-02-11 14:45] LABS: OCCULT BLOOD NEGATIVE (NEGATIVE)
[2020-02-11] MEDS: OXYcodone IR 5MG TABLET PO PRN ×2 (15:27→21:08)
[2020-02-11] MEDS ORDERED: MAGNESIUM SULFATE PMX 4GM/100M 100 ML IVPB ONE (18:30)
[2020-02-11 19:57] VITALS: BP 168/97
[2020-02-11] MEDS ORDERED: INSULIN GLARGINE 100 UNITS/ML, PEN SQ-INSULIN SCH (21:00)
[2020-02-11] MEDS: MELATONIN 5 MG TABLET PO SCH (21:07)
[2020-02-11] MEDS: ATORVASTATIN 40 MG TABLET PO SCH (21:07)
[2020-02-12 00:07] VITALS: BP 164/98
[2020-02-12] MEDS: CEFAZOLIN PMX 2GM/50ML 50 ML IVPB SCH ×3 (01:22→17:08)
[2020-02-12] MEDS: OXYcodone IR 5MG TABLET PO PRN ×5 (01:23→22:35)
[2020-02-12] MEDS: OMEPRAZOLE 20 MG CAPSULE.DR PO SCH (05:55)
[2020-02-12] MEDS: ASPIRIN 325 MG TABLET EC PO SCH (05:55)
[2020-02-12 06:10] LABS: BASOPHILS % (AUTO) 1 % (0-1); EOSINOPHILS % (AUTO) 16 % (1-7); LYMPHOCYTES % (AUTO) 22 % (22-44); MEAN CORPUSCULAR HEMOGLOBIN 30.5 pg (27.0-34.8); MEAN CORPUSCULAR HGB CONC 33.2 g/dL (32.4-35.8); MEAN PLATELET VOLUME 7.4 fL (7.4-10.4); MONOCYTES % (AUTO) 6 % (2-9); NEUTROPHILS % (AUTO) 55 % (42-75); PLATELET COUNT 210 x10^3/uL (130-400); RED BLOOD COUNT 3.47 x10^6/uL (3.82-5.3)
[2020-02-12] MEDS: ALBUTEROL-IPRATROPIUM MDI INH INH PRN ×2 (06:11→19:45)
[2020-02-12 06:20] VITALS: BP 150/94
[2020-02-12 06:24] LABS: MD NO
[2020-02-12 06:27] LABS: ALBUMIN 2.6 g/dL (3.4-5.0); ANION GAP 4 mmol/L (5-15); CALCIUM 7.8 mg/dL (8.5-10.1); CHLORIDE 105 mmol/L (98-107)
[2020-02-12 06:38] LABS: ALANINE AMINOTRANSFERASE 15 U/L (12-78); ALKALINE PHOSPHATASE 93 U/L (45-117); BILIRUBIN,TOTAL 0.2 mg/dL (0.2-1.0); CREATININE 0.63 mg/dL (0.55-1.02); TOTAL PROTEIN 6.4 g/dL (6.4-8.2)
[2020-02-12] MEDS: INSULIN LISPRO 100 UNITS/ML, PEN SQ-INSULIN SCH ×4 (07:00→20:21)
[2020-02-12] MEDS: MAGNESIUM OXIDE 400 MG TABLET PO SCH (08:22)
[2020-02-12] MEDS: METOPROLOL TARTRATE 50 MG TAB PO SCH ×2 (08:22→19:47)
[2020-02-12] MEDS: APIXABAN 5 MG TABLET PO SCH ×2 (08:22→19:47)
[2020-02-12] MEDS: DIGOXIN 0.25 MG TABLET PO SCH (08:22)
[2020-02-12] MEDS: NICOTINE 21 MG/24 HR PATCH.TD24 TD SCH (08:23)
[2020-02-12] MEDS: SENNA/DOCUSATE TABLET PO SCH (08:23)
[2020-02-12] MEDS: MULTIVITAMIN 1 TABLET PO SCH (11:28)
[2020-02-12] MEDS: THIAMINE 100MG TABLET PO SCH (11:29)
[2020-02-12 12:50] VITALS: BP 139/85
[2020-02-12] MEDS: FOLIC ACID 5 MG/ML SQ SCH (14:27)
[2020-02-12] MEDS: LORazepam 1MG TABLET PO PRN (16:25)
[2020-02-12 19:34] VITALS: BP 146/94
[2020-02-12] MEDS: ATORVASTATIN 40 MG TABLET PO SCH (19:47)
[2020-02-12] MEDS: MELATONIN 5 MG TABLET PO SCH (19:48)
[2020-02-12] MEDS: INSULIN GLARGINE 100 UNITS/ML, PEN SQ-INSULIN SCH (20:19)
[2020-02-13 00:06] VITALS: BP 151/86
[2020-02-13] MEDS: CEFAZOLIN PMX 2GM/50ML 50 ML IVPB SCH ×3 (01:18→16:38)
[2020-02-13] MEDS: OXYcodone IR 5MG TABLET PO PRN ×5 (02:44→20:40)
[2020-02-13] MEDS: ACETAMINOPHEN 325 MG TABLET PO PRN ×2 (02:44→06:40)
[2020-02-13] MEDS: OMEPRAZOLE 20 MG CAPSULE.DR PO SCH (06:39)
[2020-02-13] MEDS: INSULIN LISPRO 100 UNITS/ML, PEN SQ-INSULIN SCH ×4 (06:45→20:48)
[2020-02-13 07:05] VITALS: BP 157/82
[2020-02-13] MEDS: THIAMINE 100MG TABLET PO SCH (08:37)
[2020-02-13] MEDS: METOPROLOL TARTRATE 50 MG TAB PO SCH ×2 (08:37→20:40)
[2020-02-13] MEDS: APIXABAN 5 MG TABLET PO SCH ×2 (08:37→20:40)
[2020-02-13] MEDS: MULTIVITAMIN 1 TABLET PO SCH (08:37)
[2020-02-13] MEDS: MAGNESIUM OXIDE 400 MG TABLET PO SCH (08:37)
[2020-02-13] MEDS: DIGOXIN 0.25 MG TABLET PO SCH (08:37)
[2020-02-13] MEDS: SENNA/DOCUSATE TABLET PO SCH (08:38)
[2020-02-13] MEDS: NICOTINE 21 MG/24 HR PATCH.TD24 TD SCH (08:38)
[2020-02-13] MEDS: FOLIC ACID 5 MG/ML SQ SCH (10:08)
[2020-02-13 13:30] VITALS: BP 166/89
[2020-02-13 19:26] VITALS: BP 150/82
[2020-02-13] MEDS: ATORVASTATIN 40 MG TABLET PO SCH (20:40)
[2020-02-13] MEDS: MELATONIN 5 MG TABLET PO SCH (20:40)
[2020-02-13] MEDS: INSULIN GLARGINE 100 UNITS/ML, PEN SQ-INSULIN SCH (20:48)
[2020-02-14] MEDS: OXYcodone IR 5MG TABLET PO PRN ×5 (00:30→21:32)
[2020-02-14] MEDS: CEFAZOLIN PMX 2GM/50ML 50 ML IVPB SCH ×3 (00:30→16:30)
[2020-02-14 01:30] VITALS: BP 156/82
[2020-02-14] MEDS: OMEPRAZOLE 20 MG CAPSULE.DR PO SCH (06:28)
[2020-02-14] MEDS: INSULIN LISPRO 100 UNITS/ML, PEN SQ-INSULIN SCH ×4 (06:32→21:52)
[2020-02-14 06:50] VITALS: BP 161/79
[2020-02-14 06:55] LABS: BASOPHILS % (AUTO) 1 % (0-1); EOSINOPHILS % (AUTO) 11 % (1-7); LYMPHOCYTES % (AUTO) 30 % (22-44); MEAN CORPUSCULAR HEMOGLOBIN 29.9 pg (27.0-34.8); MEAN CORPUSCULAR HGB CONC 33.4 g/dL (32.4-35.8); MEAN PLATELET VOLUME 7.8 fL (7.4-10.4); MONOCYTES % (AUTO) 11 % (2-9); NEUTROPHILS % (AUTO) 48 % (42-75); PLATELET COUNT 187 x10^3/uL (130-400); RED BLOOD COUNT 3.59 x10^6/uL (3.82-5.3); RED CELL DISTRIBUTION WIDTH 17.7 % (9.6-15.2)
[2020-02-14 07:02] LABS: CALCIUM 8.9 mg/dL (8.5-10.1)
[2020-02-14 07:16] LABS: ALANINE AMINOTRANSFERASE 10 U/L (12-78); ALBUMIN 2.7 g/dL (3.4-5.0); ALKALINE PHOSPHATASE 98 U/L (45-117); BILIRUBIN,TOTAL 0.4 mg/dL (0.2-1.0); CREATININE 0.56 mg/dL (0.55-1.02)
[2020-02-14 07:27] LABS: CHLORIDE 98 mmol/L (98-107)
[2020-02-14 07:28] LABS: ANION GAP 4 mmol/L (5-15)
[2020-02-14] MEDS: THIAMINE 100MG TABLET PO SCH (08:59)
[2020-02-14] MEDS: NICOTINE 21 MG/24 HR PATCH.TD24 TD SCH (08:59)
[2020-02-14] MEDS: MULTIVITAMIN 1 TABLET PO SCH (09:00)
[2020-02-14] MEDS: APIXABAN 5 MG TABLET PO SCH ×2 (09:00→21:33)
[2020-02-14] MEDS: DIGOXIN 0.25 MG TABLET PO SCH (09:00)
[2020-02-14] MEDS: SENNA/DOCUSATE TABLET PO SCH (09:00)
[2020-02-14] MEDS: MAGNESIUM OXIDE 400 MG TABLET PO SCH (09:00)
[2020-02-14] MEDS: METOPROLOL TARTRATE 50 MG TAB PO SCH ×2 (09:00→21:33)
[2020-02-14 09:32] LABS: MD SCAN
[2020-02-14] MEDS: LEVOTHYROXINE 25 MCG TABLET PO SCH (10:00)
[2020-02-14] MEDS: FOLIC ACID 5 MG/ML SQ SCH (10:56)
[2020-02-14] MEDS: VENLAFAXINE XR 37.5MG CAP.ER.24H PO SCH (11:54)
[2020-02-14 12:30] VITALS: BP 137/85
[2020-02-14] MEDS: ACETAMINOPHEN 325 MG TABLET PO PRN (16:41)
[2020-02-14 19:52] VITALS: BP 142/82
[2020-02-14] MEDS: MELATONIN 5 MG TABLET PO SCH (21:33)
[2020-02-14] MEDS: ATORVASTATIN 40 MG TABLET PO SCH (21:33)
[2020-02-14] MEDS: INSULIN GLARGINE 100 UNITS/ML, PEN SQ-INSULIN SCH (21:51)
[2020-02-14] MEDS: BUTALB/APAP/CAFFEINE 50MG/325MG/40MG PO PRN (23:21)
[2020-02-15] MEDS: CEFAZOLIN PMX 2GM/50ML 50 ML IVPB SCH ×3 (00:59→17:39)
[2020-02-15 02:05] VITALS: BP 101/64
[2020-02-15] MEDS: OMEPRAZOLE 20 MG CAPSULE.DR PO SCH (06:11)
[2020-02-15] MEDS: LEVOTHYROXINE 25 MCG TABLET PO SCH (06:11)
[2020-02-15] MEDS: OXYcodone IR 5MG TABLET PO PRN ×4 (06:11→21:26)
[2020-02-15 06:45] VITALS: BP 119/75
[2020-02-15] MEDS: INSULIN LISPRO 100 UNITS/ML, PEN SQ-INSULIN SCH ×4 (07:00→21:25)
[2020-02-15] MEDS: SENNA/DOCUSATE TABLET PO SCH (09:00)
[2020-02-15] MEDS: APIXABAN 5 MG TABLET PO SCH ×2 (09:13→21:27)
[2020-02-15] MEDS: MAGNESIUM OXIDE 400 MG TABLET PO SCH (09:13)
[2020-02-15] MEDS: THIAMINE 100MG TABLET PO SCH (09:13)
[2020-02-15] MEDS: FOLIC ACID 5 MG/ML SQ SCH (09:14)
[2020-02-15] MEDS: MULTIVITAMIN 1 TABLET PO SCH (09:15)
[2020-02-15] MEDS: NICOTINE 21 MG/24 HR PATCH.TD24 TD SCH (09:15)
[2020-02-15] MEDS: DIGOXIN 0.25 MG TABLET PO SCH (09:16)
[2020-02-15] MEDS: METOPROLOL TARTRATE 50 MG TAB PO SCH ×2 (09:16→21:27)
[2020-02-15] MEDS: VENLAFAXINE XR 37.5MG CAP.ER.24H PO SCH (09:16)
[2020-02-15 12:54] VITALS: BP 114/67
[2020-02-15 20:07] VITALS: BP 152/96
[2020-02-15] MEDS: INSULIN GLARGINE 100 UNITS/ML, PEN SQ-INSULIN SCH (21:24)
[2020-02-15] MEDS: ATORVASTATIN 40 MG TABLET PO SCH (21:26)
[2020-02-15] MEDS: MELATONIN 5 MG TABLET PO SCH (21:26)
[2020-02-16] MEDS: CEFAZOLIN PMX 2GM/50ML 50 ML IVPB SCH ×3 (01:49→16:27)
[2020-02-16 03:18] VITALS: BP 148/88
[2020-02-16] MEDS: OXYcodone IR 5MG TABLET PO PRN ×4 (05:45→20:02)
[2020-02-16] MEDS: LEVOTHYROXINE 25 MCG TABLET PO SCH (05:45)
[2020-02-16 06:54] VITALS: BP 150/88
[2020-02-16] MEDS: INSULIN LISPRO 100 UNITS/ML, PEN SQ-INSULIN SCH ×4 (07:16→20:03)
[2020-02-16] MEDS: NICOTINE 21 MG/24 HR PATCH.TD24 TD SCH (07:46)
[2020-02-16] MEDS: MAGNESIUM OXIDE 400 MG TABLET PO SCH (07:46)
[2020-02-16] MEDS: APIXABAN 5 MG TABLET PO SCH ×2 (07:46→20:01)
[2020-02-16] MEDS: OMEPRAZOLE 20 MG CAPSULE.DR PO SCH (07:46)
[2020-02-16] MEDS: DIGOXIN 0.25 MG TABLET PO SCH (07:46)
[2020-02-16] MEDS: SENNA/DOCUSATE TABLET PO SCH (07:47)
[2020-02-16] MEDS: MULTIVITAMIN 1 TABLET PO SCH (07:47)
[2020-02-16] MEDS: METOPROLOL TARTRATE 50 MG TAB PO SCH ×2 (07:47→20:02)
[2020-02-16] MEDS: THIAMINE 100MG TABLET PO SCH (07:47)
[2020-02-16] MEDS: VENLAFAXINE XR 37.5MG CAP.ER.24H PO SCH (07:47)
[2020-02-16] MEDS: FOLIC ACID 5 MG/ML SQ SCH (09:24)
[2020-02-16 13:02] VITALS: BP 132/82
[2020-02-16 19:57] VITALS: BP 154/94
[2020-02-16] MEDS: MELATONIN 5 MG TABLET PO SCH (20:01)
[2020-02-16] MEDS: INSULIN GLARGINE 100 UNITS/ML, PEN SQ-INSULIN SCH (20:02)
[2020-02-16] MEDS: ATORVASTATIN 40 MG TABLET PO SCH (20:02)
[2020-02-17 00:36] VITALS: BP 146/85
[2020-02-17] MEDS: CEFAZOLIN PMX 2GM/50ML 50 ML IVPB SCH ×3 (00:38→16:03)
[2020-02-17] MEDS: OXYcodone IR 5MG TABLET PO PRN ×5 (00:40→20:09)
[2020-02-17] MEDS: LEVOTHYROXINE 25 MCG TABLET PO SCH (04:28)
[2020-02-17 05:49] LABS: BASOPHILS % (AUTO) 1 % (0-1); EOSINOPHILS % (AUTO) 6 % (1-7); LYMPHOCYTES % (AUTO) 32 % (22-44); MEAN CORPUSCULAR HEMOGLOBIN 29.8 pg (27.0-34.8); MEAN CORPUSCULAR HGB CONC 33.3 g/dL (32.4-35.8); MONOCYTES % (AUTO) 12 % (2-9); NEUTROPHILS % (AUTO) 48 % (42-75); PLATELET COUNT 257 x10^3/uL (130-400); RED BLOOD COUNT 3.68 x10^6/uL (3.82-5.3); RED CELL DISTRIBUTION WIDTH 16.9 % (9.6-15.2)
[2020-02-17 05:58] LABS: MD NO
[2020-02-17 05:59] LABS: ANION GAP 3 mmol/L (5-15); C-REACTIVE PROTEIN, QUANT 0.79 mg/dL (0.02-0.49); CALCIUM 9.3 mg/dL (8.5-10.1); CHLORIDE 95 mmol/L (98-107); CREATININE 0.59 mg/dL (0.55-1.02)
[2020-02-17] MEDS: OMEPRAZOLE 20 MG CAPSULE.DR PO SCH (06:04)
[2020-02-17 06:30] VITALS: BP 162/103
[2020-02-17] MEDS: INSULIN LISPRO 100 UNITS/ML, PEN SQ-INSULIN SCH ×4 (07:21→20:06)
[2020-02-17] MEDS: THIAMINE 100MG TABLET PO SCH (09:30)
[2020-02-17] MEDS: DIGOXIN 0.25 MG TABLET PO SCH (09:30)
[2020-02-17] MEDS: VENLAFAXINE XR 37.5MG CAP.ER.24H PO SCH (09:30)
[2020-02-17] MEDS: METOPROLOL TARTRATE 50 MG TAB PO SCH ×2 (09:30→20:09)
[2020-02-17] MEDS: MAGNESIUM OXIDE 400 MG TABLET PO SCH (09:30)
[2020-02-17] MEDS: APIXABAN 5 MG TABLET PO SCH ×2 (09:31→20:09)
[2020-02-17] MEDS: SENNA/DOCUSATE TABLET PO SCH (09:31)
[2020-02-17] MEDS: MULTIVITAMIN 1 TABLET PO SCH (09:31)
[2020-02-17] MEDS: NICOTINE 21 MG/24 HR PATCH.TD24 TD SCH (09:31)
[2020-02-17] MEDS: FOLIC ACID 5 MG/ML SQ SCH (10:23)
[2020-02-17 12:30] VITALS: BP 151/86
[2020-02-17 18:52] VITALS: BP 159/87
[2020-02-17] MEDS: MELATONIN 5 MG TABLET PO SCH (20:09)
[2020-02-17] MEDS: ATORVASTATIN 40 MG TABLET PO SCH (20:09)
[2020-02-17] MEDS: INSULIN GLARGINE 100 UNITS/ML, PEN SQ-INSULIN SCH (20:10)
[2020-02-18] VITALS (7 sets, daily range): BP systolic 148–181; BP diastolic 75–102
[2020-02-18] MEDS: CEFAZOLIN PMX 2GM/50ML 50 ML IVPB SCH ×3 (00:32→16:40)
[2020-02-18] MEDS: OXYcodone IR 5MG TABLET PO PRN ×5 (00:35→20:01)
[2020-02-18] MEDS: LEVOTHYROXINE 25 MCG TABLET PO SCH (05:25)
[2020-02-18] MEDS: OMEPRAZOLE 20 MG CAPSULE.DR PO SCH (05:25)
[2020-02-18] MEDS: INSULIN LISPRO 100 UNITS/ML, PEN SQ-INSULIN SCH ×4 (07:00→19:56)
[2020-02-18] MEDS: MAGNESIUM OXIDE 400 MG TABLET PO SCH (09:14)
[2020-02-18] MEDS: VENLAFAXINE XR 37.5MG CAP.ER.24H PO SCH (09:14)
[2020-02-18] MEDS: THIAMINE 100MG TABLET PO SCH (09:14)
[2020-02-18] MEDS: SENNA/DOCUSATE TABLET PO SCH (09:14)
[2020-02-18] MEDS: DIGOXIN 0.25 MG TABLET PO SCH (09:15)
[2020-02-18] MEDS: APIXABAN 5 MG TABLET PO SCH ×2 (09:15→19:55)
[2020-02-18] MEDS: METOPROLOL TARTRATE 50 MG TAB PO SCH ×2 (09:15→19:56)
[2020-02-18] MEDS: NICOTINE 21 MG/24 HR PATCH.TD24 TD SCH (09:16)
[2020-02-18] MEDS: MULTIVITAMIN 1 TABLET PO SCH (09:18)
[2020-02-18] MEDS: FOLIC ACID 5 MG/ML SQ SCH (09:52)
[2020-02-18] MEDS: CEPHALEXIN 500 MG CAPSULE PO SCH (19:55)
[2020-02-18] MEDS: MELATONIN 5 MG TABLET PO SCH (19:55)
[2020-02-18] MEDS: ATORVASTATIN 40 MG TABLET PO SCH (19:55)
[2020-02-18] MEDS: INSULIN GLARGINE 100 UNITS/ML, PEN SQ-INSULIN SCH (20:03)
[2020-02-19] MEDS: OXYcodone IR 5MG TABLET PO PRN ×5 (01:17→20:45)
[2020-02-19 01:18] VITALS: BP 165/94
[2020-02-19] MEDS: OMEPRAZOLE 20 MG CAPSULE.DR PO SCH (04:36)
[2020-02-19] MEDS: LEVOTHYROXINE 25 MCG TABLET PO SCH (04:36)
[2020-02-19 07:52] VITALS: BP 129/66
[2020-02-19] MEDS: METOPROLOL TARTRATE 50 MG TAB PO SCH ×2 (08:32→20:44)
[2020-02-19] MEDS: SENNA/DOCUSATE TABLET PO SCH (08:32)
[2020-02-19] MEDS: MULTIVITAMIN 1 TABLET PO SCH (08:32)
[2020-02-19] MEDS: THIAMINE 100MG TABLET PO SCH (08:32)
[2020-02-19] MEDS: CEPHALEXIN 500 MG CAPSULE PO SCH ×3 (08:33→20:44)
[2020-02-19] MEDS: DIGOXIN 0.25 MG TABLET PO SCH (08:33)
[2020-02-19] MEDS: MAGNESIUM OXIDE 400 MG TABLET PO SCH (08:33)
[2020-02-19] MEDS: APIXABAN 5 MG TABLET PO SCH ×2 (08:33→20:43)
[2020-02-19] MEDS: NICOTINE 21 MG/24 HR PATCH.TD24 TD SCH (08:34)
[2020-02-19] MEDS: VENLAFAXINE XR 37.5MG CAP.ER.24H PO SCH (08:34)
[2020-02-19] MEDS: INSULIN LISPRO 100 UNITS/ML, PEN SQ-INSULIN SCH ×4 (08:35→21:00)
[2020-02-19] MEDS: FOLIC ACID 5 MG/ML SQ SCH (09:59)
[2020-02-19 13:11] VITALS: BP 145/85
[2020-02-19 20:38] VITALS: BP 190/102
[2020-02-19] MEDS: MELATONIN 5 MG TABLET PO SCH (20:44)
[2020-02-19] MEDS: ACETAMINOPHEN 325 MG TABLET PO PRN (20:44)
[2020-02-19] MEDS: ATORVASTATIN 40 MG TABLET PO SCH (20:44)
[2020-02-19] MEDS: INSULIN GLARGINE 100 UNITS/ML, PEN SQ-INSULIN SCH (21:35)
[2020-02-20 01:31] VITALS: BP 153/94
[2020-02-20] MEDS: OXYcodone IR 5MG TABLET PO PRN ×3 (04:33→13:39)
[2020-02-20 07:00] VITALS: BP 154/91
[2020-02-20] MEDS: INSULIN LISPRO 100 UNITS/ML, PEN SQ-INSULIN SCH ×3 (07:00→16:02)
[2020-02-20] MEDS: LEVOTHYROXINE 25 MCG TABLET PO SCH (07:02)
[2020-02-20] MEDS: OMEPRAZOLE 20 MG CAPSULE.DR PO SCH (07:02)
[2020-02-20] MEDS: SENNA/DOCUSATE TABLET PO SCH (09:00)
[2020-02-20] MEDS: CEPHALEXIN 500 MG CAPSULE PO SCH ×2 (09:05→16:04)
[2020-02-20] MEDS: METOPROLOL TARTRATE 50 MG TAB PO SCH (09:05)
[2020-02-20] MEDS: DIGOXIN 0.25 MG TABLET PO SCH (09:06)
[2020-02-20] MEDS: APIXABAN 5 MG TABLET PO SCH (09:06)
[2020-02-20] MEDS: MULTIVITAMIN 1 TABLET PO SCH (09:06)
[2020-02-20] MEDS: MAGNESIUM OXIDE 400 MG TABLET PO SCH (09:06)
[2020-02-20] MEDS: NICOTINE 21 MG/24 HR PATCH.TD24 TD SCH (09:07)
[2020-02-20] MEDS ORDERED: FOLIC ACID 1 MG TABLET PO SCH (10:00)
[2020-02-20] MEDS: VENLAFAXINE XR 37.5MG CAP.ER.24H PO SCH (11:11)
[2020-02-20] MEDS: THIAMINE 100MG TABLET PO SCH (11:11)
[2020-02-20] MEDS ORDERED: CEPH-376 PO (11:19)
[2020-02-20] MEDS ORDERED: ATOR40TA78 PO (11:19)
[2020-02-20] MEDS ORDERED: OMEP-110 PO (11:19)
[2020-02-20] MEDS ORDERED: FLUT1BLS9 INH (11:19)
[2020-02-20] MEDS ORDERED: DIGO250T3 PO (11:19)
[2020-02-20] MEDS ORDERED: INSU100V8 SQ (11:19)
[2020-02-20] MEDS ORDERED: METO50TA6 PO (11:19)
[2020-02-20] MEDS ORDERED: APIX5TAB PO (11:19)
[2020-02-20] MEDS ORDERED: VENL37.52 PO (11:19)
[2020-02-20] MEDS ORDERED: ALBU6.7H8 INH (11:19)
[2020-02-20] MEDS ORDERED: IPRA4AER INH (11:19)
[2020-02-20 12:37] VITALS: BP 137/79
[2020-02-20] MEDS ORDERED: LEVO25TA2 PO (17:16)
== END 2020-02-20 17:18 | disposition home or self-care (01) | DRG 133 ==
LOC: ED 10:56 → EDIP 12:56 → 4NW 19:38
PROVIDERS: ADMIT Hospitalist; ATTEND Internal Medicine
DX: J96.01 Acute respiratory failure with hypoxia (principal); D68.59 Other primary thrombophilia; E03.9 Hypothyroidism, unspecified; E10.65 Type 1 diabetes mellitus with hyperglycemia; E44.0 Moderate protein-calorie malnutrition; Z68.31 Body mass index [BMI] 31.0-31.9, adult; E78.5 Hyperlipidemia, unspecified; E83.51 Hypocalcemia; F17.210 Nicotine dependence, cigarettes, uncomplicated; F32.9 Major depressive disorder, single episode, unspecified; F41.9 Anxiety disorder, unspecified; G43.909 Migraine, unspecified, not intractable, without status migrainosus; G89.29 Other chronic pain; I11.0 Hypertensive heart disease with heart failure; I48.91 Unspecified atrial fibrillation; I49.5 Sick sinus syndrome; I50.32 Chronic diastolic (congestive) heart failure; J18.9 Pneumonia, unspecified organism; J44.0 Chronic obstructive pulmonary disease with (acute) lower respiratory infection; K21.9 Gastro-esophageal reflux disease without esophagitis; K43.5 Parastomal hernia without obstruction or gangrene; K50.90 Crohn's disease, unspecified, without complications; I95.9 Hypotension, unspecified; F15.10 Other stimulant abuse, uncomplicated; K63.1 Perforation of intestine (nontraumatic); Z59.0 Homelessness; Z79.01 Long term (current) use of anticoagulants; Z79.4 Long term (current) use of insulin; Z85.828 Personal history of other malignant neoplasm of skin; Z87.01 Personal history of pneumonia (recurrent); Z90.710 Acquired absence of both cervix and uterus; Z91.19 Patient's noncompliance with other medical treatment and regimen; Z95.0 Presence of cardiac pacemaker; Z99.81 Dependence on supplemental oxygen; Z90.49 Acquired absence of other specified parts of digestive tract; Z88.0 Allergy status to penicillin; Z88.1 Allergy status to other antibiotic agents
CPT/HCPCS: 36415; 71046; 71260; 80048; 80053; 80162; 82272; 82962; 83036; 83605; 83735; 84100; 84145; 84439; 84443; 84481; 85025; 85651; 86140; 87040; 93005; 96374; 96375; 99285; G0378; J0690; J0696; J1885; Q0162; Q9967; J1815; J2060; J3475; J7030

== ENCOUNTER 2020-04-03 22:01 | Emergency (ER) | payer MEDICAID ==
[~2020-04-03] VITALS: Ht 170.2 cm; Wt 87.0 kg
[~2020-04-03 22:01] MED LIST changes: +CEPH-376 PO; -ESCI10TA PO; +ESCI10TA97 PO; +LEVO25TA2 PO; +VENL37.52 PO
--- NOTE | 2020-04-03 22:08 | NUR ---
NIL X 1
[2020-04-03 22:19] VITALS: BP 184/88
--- NOTE | 2020-04-03 23:31 | NUR ---
NIL X 1
--- NOTE | 2020-04-03 23:50 | NUR ---
NIL X 3
== END 2020-04-03 23:53 | disposition left against medical advice (07) ==
LOC: ED 23:00
DX: R10.9 Unspecified abdominal pain (principal); Z53.21 Procedure and treatment not carried out due to patient leaving prior to being seen by health care provider

== ENCOUNTER 2020-04-14 17:10 | Emergency (ER) | payer MEDICAID ==
[~2020-04-14] VITALS: Ht 170.2 cm; Wt 91.9 kg
--- NOTE | 2020-04-14 17:45 | NUR ---
pt in room . states she thinks she has "carpal tunnel.
--- NOTE | 2020-04-14 18:31 | NUR ---
pt in bed eating [employer].
--- NOTE | 2020-04-14 18:46 | NUR ---
pt and friend at bedside wanted to change own ostomy. given supplies
[2020-04-14 19:37] VITALS: BP 122/62
== END 2020-04-14 19:52 | disposition home or self-care (01) ==
LOC: ED 19:01
DX: G89.29 Other chronic pain (principal); M79.641 Pain in right hand; M25.531 Pain in right wrist; R05 Cough; E11.9 Type 2 diabetes mellitus without complications; J44.9 Chronic obstructive pulmonary disease, unspecified; I48.91 Unspecified atrial fibrillation; I25.2 Old myocardial infarction; K21.9 Gastro-esophageal reflux disease without esophagitis; I11.0 Hypertensive heart disease with heart failure; I50.9 Heart failure, unspecified; Z85.828 Personal history of other malignant neoplasm of skin
CPT/HCPCS: 29125; 99284

== ENCOUNTER 2020-06-25 05:12 | Inpatient (IN) | payer MEDICAID ==
[~2020-06-25] VITALS: Ht 170.2 cm; Wt 85.0 kg
[~2020-06-25 05:12] MED LIST changes: +NAPR-872 PO; -NAPR250T6 PO; +SULF-23 PO; -SULF1TAB24 PO
[2020-06-25] MEDS ORDERED: DILTIAZEM 5 MG/ML, 5ML ONE (05:22)
--- NOTE | 2020-06-25 05:25 | NUR ---
PT BIBA FROM [facility] [address] FOR CP, ONSET ~444. PT GIVEN 324MG ASA, 100MCG FENT, 1NTG, 4MG ZOFRAN BY EMS ENROUTE. PT IN AFIB ON ARRIVAL TO ED, IN 160'S. PT DROWSY, PLACED ON NC BY EMS, PLACED ON VENTI MASK D/T CONTINUED LOW SPO2. PT STATES SHE HAS HX OF AFIB "I LIVE LIKE THIS" BUT NON COMPLIANT C RX. PT HAS PIV TO LAC. PT RATES PAIN 8/10, NON RADIATING. AT , WILL MONITOR FOR ORDERS.
[2020-06-25] MEDS ORDERED: DILTIAZEM 5 MG/ML, 5ML IV ONE (05:30)
[2020-06-25] MEDS ORDERED: SODIUM CHLORIDE FLUSH 10ML SYR IVF ONE (05:30)
[2020-06-25 05:58] LABS: BASOPHILS % (AUTO) 1 % (0-1); EOSINOPHILS % (AUTO) 2 % (1-7); LYMPHOCYTES % (AUTO) 22 % (22-44); MEAN CORPUSCULAR HEMOGLOBIN 26.2 pg (27.0-34.8); MEAN PLATELET VOLUME 7.2 fL (7.4-10.4); MONOCYTES % (AUTO) 7 % (2-9); NEUTROPHILS % (AUTO) 68 % (42-75); PLATELET COUNT 224 x10^3/uL (130-400); RED BLOOD COUNT 4.06 x10^6/uL (3.82-5.3); RED CELL DISTRIBUTION WIDTH 17.6 % (9.6-15.2)
[2020-06-25 05:59] LABS: MD NO
[2020-06-25 06:06] LABS: ALANINE AMINOTRANSFERASE 16 U/L (12-78); ALBUMIN 3.2 g/dL (3.4-5.0); ANION GAP 8 mmol/L (5-15); CALCIUM 8.1 mg/dL (8.5-10.1); CHLORIDE 102 mmol/L (98-107)
[2020-06-25 06:22] LABS: ALKALINE PHOSPHATASE 118 U/L (45-117); BILIRUBIN,TOTAL 0.5 mg/dL (0.2-1.0); TOTAL PROTEIN 7.4 g/dL (6.4-8.2); TROPONIN I < 0.015 ng/mL (0.000-0.045)
--- NOTE | 2020-06-25 07:13 | NUR ---
PT ASLEEP WITH RESPIRATIONS EVEN AND UNLABORED. VSS. REPORT FROM ROBEL BROOKS RN.
--- NOTE | 2020-06-25 07:14 | NUR ---
DR. DWYER AT BEDSIDE. PT 83 ON ROOM AIR.
[2020-06-25] MEDS ORDERED: SODIUM CHLORIDE FLUSH 10ML SYR IVF PRN (07:30)
--- NOTE | 2020-06-25 07:37 | NUR ---
PT UP TO BSC. URINE DRUG SCREEN COLLECTED AND WALKED DOWN TO LAB.
[2020-06-25 07:55] LABS: AMPHETAMINE SCREEN, URINE Positive (Negative); BARBITURATE SCREEN, URINE Negative (Negative); BENZODIAZEPINE SCREEN, URINE Negative (Negative); CANNABINOID SCREEN, URINE Negative (Negative); COCAINE SCREEN, URINE Negative (Negative); METHADONE SCREEN, URINE Negative (Negative); OPIATE SCREEN, URINE Negative (Negative)
--- NOTE | 2020-06-25 08:04 | NUR ---
PT SITTING UP ASLEEP. RESPIRATIONS EVEN AND UNLABORED. SR ON MONITOR. VSS. NADN.
--- NOTE | 2020-06-25 08:39 | NUR ---
REPORT GIVEN TO DIANE GORMAN AT BEDSIDE. PT BROUGHT UP TO CARD TELE VIA GURNEY WITH ALL BELONGINGS AND . ON ASIC DESIGN ENGINEER.
[2020-06-25 08:42] VITALS: BP 106/71
[2020-06-25] MEDS ORDERED: ALBUTEROL HFA 90 MCG/SPRAY INH PRN (09:30)
[2020-06-25] MEDS ORDERED: ALBUTEROL-IPRATROPIUM MDI INH INH PRN (09:30)
[2020-06-25] MEDS ORDERED: ONDANSETRON 2MG/ML, 2ML IVPush PRN (09:30)
[2020-06-25] MEDS ORDERED: ONDANSETRON ODT 4 MG PO PRN (09:30)
[2020-06-25] MEDS ORDERED: ACETAMINOPHEN 325 MG TABLET PO PRN (09:30)
[2020-06-25 10:00] LABS: TROPONIN I < 0.015 ng/mL (0.000-0.045)
[2020-06-25 14:11] VITALS: BP 119/79
[2020-06-25] MEDS ORDERED: CARVEDILOL 6.25 MG TABLET ONE (15:00)
[2020-06-25 15:34] LABS: TROPONIN I < 0.015 ng/mL (0.000-0.045)
[2020-06-25] MEDS: CARVEDILOL 6.25 MG TABLET PO SCH (17:28)
[2020-06-25 19:49] VITALS: BP 114/78
[2020-06-25] MEDS ORDERED: ATORVASTATIN 40 MG TABLET PO SCH (21:00)
[2020-06-25] MEDS: APIXABAN 5 MG TABLET PO SCH (23:06)
[2020-06-26 01:18] VITALS: BP 111/80
[2020-06-26] MEDS ORDERED: LEVOTHYROXINE 25 MCG TABLET PO SCH (06:00)
[2020-06-26 06:05] LABS: BASOPHILS % (AUTO) 1 % (0-1); EOSINOPHILS % (AUTO) 3 % (1-7); LYMPHOCYTES % (AUTO) 24 % (22-44); MEAN CORPUSCULAR HEMOGLOBIN 25.8 pg (27.0-34.8); MEAN CORPUSCULAR HGB CONC 31.9 g/dL (32.4-35.8); MEAN PLATELET VOLUME 7.3 fL (7.4-10.4); MONOCYTES % (AUTO) 7 % (2-9); NEUTROPHILS % (AUTO) 66 % (42-75); PLATELET COUNT 217 x10^3/uL (130-400); RED CELL DISTRIBUTION WIDTH 17.4 % (9.6-15.2)
[2020-06-26 06:06] LABS: MD NO
[2020-06-26 06:18] LABS: ALBUMIN 2.9 g/dL (3.4-5.0); ANION GAP 4 mmol/L (5-15); CALCIUM 8.3 mg/dL (8.5-10.1); CHLORIDE 100 mmol/L (98-107)
[2020-06-26 06:24] LABS: ALANINE AMINOTRANSFERASE 17 U/L (12-78); ALKALINE PHOSPHATASE 116 U/L (45-117); BILIRUBIN,TOTAL 0.5 mg/dL (0.2-1.0); CREATININE 0.56 mg/dL (0.55-1.02); TOTAL PROTEIN 6.9 g/dL (6.4-8.2)
[2020-06-26] MEDS: CARVEDILOL 6.25 MG TABLET PO SCH (06:42)
[2020-06-26 06:56] VITALS: BP 95/62
[2020-06-26] MEDS: APIXABAN 5 MG TABLET PO SCH (08:55)
[2020-06-26] MEDS ORDERED: VENLAFAXINE XR 37.5MG CAP.ER.24H PO SCH (09:00)
[2020-06-26] MEDS ORDERED: CARV6.2512 PO (11:05)
[2020-06-26 14:26] VITALS: BP 102/72
== END 2020-06-26 15:02 | disposition home or self-care (01) | DRG 133 ==
LOC: ED 05:44 → EDIP 07:31 → 5SO 08:36
PROVIDERS: ADMIT Internal Medicine; ATTEND Internal Medicine
DX: J96.01 Acute respiratory failure with hypoxia (principal); I50.33 Acute on chronic diastolic (congestive) heart failure; I48.20 Chronic atrial fibrillation, unspecified; J44.1 Chronic obstructive pulmonary disease with (acute) exacerbation; K50.90 Crohn's disease, unspecified, without complications; E11.9 Type 2 diabetes mellitus without complications; I11.0 Hypertensive heart disease with heart failure; E03.9 Hypothyroidism, unspecified; F10.20 Alcohol dependence, uncomplicated; F15.90 Other stimulant use, unspecified, uncomplicated; F17.210 Nicotine dependence, cigarettes, uncomplicated; I25.10 Atherosclerotic heart disease of native coronary artery without angina pectoris; I25.2 Old myocardial infarction; Z79.01 Long term (current) use of anticoagulants; Z85.828 Personal history of other malignant neoplasm of skin; Z90.710 Acquired absence of both cervix and uterus; Z91.19 Patient's noncompliance with other medical treatment and regimen; Z93.3 Colostomy status
CPT/HCPCS: 36415; 36600; 71045; 80053; 80162; 80307; 80320; 82803; 83036; 83690; 83735; 83880; 84439; 84443; 84484; 85025; 93005; 96374; G0378; G0480

== ENCOUNTER 2020-07-11 21:58 | Emergency (ER) | payer MEDICAID ==
[~2020-07-11] VITALS: Ht 170.2 cm; Wt 100.0 kg
--- NOTE | 2020-07-11 22:02 | NUR ---
NIL X 1
--- NOTE | 2020-07-11 22:10 | NUR ---
TRIAGED PT AT THIS TIME
[2020-07-11] MEDS ORDERED: ALBUTEROL SULFATE 2.5MG/0.5ML ONE (22:52)
[2020-07-11] MEDS ORDERED: ALBUTEROL SULFATE 2.5 MG/3 ML NPPB ONE (23:00)
[2020-07-11 23:04] LABS: BASOPHILS % (AUTO) 1 % (0-1); EOSINOPHILS % (AUTO) 1 % (1-7); LYMPHOCYTES % (AUTO) 22 % (22-44); MD NO; MEAN CORPUSCULAR HEMOGLOBIN 25.7 pg (27.0-34.8); MEAN CORPUSCULAR HGB CONC 32.4 g/dL (32.4-35.8); MEAN PLATELET VOLUME 7.1 fL (7.4-10.4); MONOCYTES % (AUTO) 8 % (2-9); NEUTROPHILS % (AUTO) 68 % (42-75); PLATELET COUNT 230 x10^3/uL (130-400); RED CELL DISTRIBUTION WIDTH 18.3 % (9.6-15.2)
[2020-07-11 23:11] LABS: ALANINE AMINOTRANSFERASE 13 U/L (12-78); ALBUMIN 3.6 g/dL (3.4-5.0); ANION GAP 6 mmol/L (5-15); CALCIUM 8.4 mg/dL (8.5-10.1); CHLORIDE 103 mmol/L (98-107); CREATININE 0.69 mg/dL (0.55-1.02)
[2020-07-11 23:14] LABS: ALKALINE PHOSPHATASE 139 U/L (45-117); BILIRUBIN,TOTAL 0.6 mg/dL (0.2-1.0); TOTAL PROTEIN 7.9 g/dL (6.4-8.2)
[2020-07-11 23:27] VITALS: BP 151/111
--- NOTE | 2020-07-11 23:31 | NUR ---
PT PROVIDED COLOSTOMY SUPPLIES
== END 2020-07-12 00:05 | disposition home or self-care (01) ==
LOC: ED 23:02
DX: J44.1 Chronic obstructive pulmonary disease with (acute) exacerbation (principal); R10.84 Generalized abdominal pain; Z72.9 Problem related to lifestyle, unspecified; R00.0 Tachycardia, unspecified; I11.0 Hypertensive heart disease with heart failure; I50.9 Heart failure, unspecified; I25.10 Atherosclerotic heart disease of native coronary artery without angina pectoris; I25.2 Old myocardial infarction; K21.9 Gastro-esophageal reflux disease without esophagitis; I48.91 Unspecified atrial fibrillation; E11.9 Type 2 diabetes mellitus without complications; F17.200 Nicotine dependence, unspecified, uncomplicated
CPT/HCPCS: 36415; 71045; 80053; 83690; 85025; 94640; 99284; J7613

== ENCOUNTER 2020-08-03 23:49 | Emergency (ER) | payer MEDICAID ==
[~2020-08-03] VITALS: Ht 162.6 cm; Wt 90.0 kg
[~2020-08-03 23:49] MED LIST changes: -ARIP10TA15 PO; +ARIP10TA54 PO
--- NOTE | 2020-08-03 23:55 | NUR ---
nil x 1
--- NOTE | 2020-08-04 00:07 | NUR ---
nil x2
[2020-08-04 00:29] VITALS: BP 145/71
[2020-08-04] MEDS ORDERED: ALBUTEROL SULFATE 2.5 MG/3 ML NPPB ONE (02:30)
--- NOTE | 2020-08-04 02:33 | NUR ---
provided with two sets of 2 3/4 ostomy two piece set ups. patient/spouse applying
[2020-08-04] MEDS ORDERED: ALBUTEROL SULFATE 2.5 MG/3 ML ONE (02:39)
== END 2020-08-04 03:40 | disposition home or self-care (01) ==
LOC: ED 08-04 03:29
DX: J44.1 Chronic obstructive pulmonary disease with (acute) exacerbation (principal); F15.10 Other stimulant abuse, uncomplicated; K94.23 Gastrostomy malfunction; F17.210 Nicotine dependence, cigarettes, uncomplicated; Z72.9 Problem related to lifestyle, unspecified; I11.0 Hypertensive heart disease with heart failure; I50.9 Heart failure, unspecified; E11.9 Type 2 diabetes mellitus without complications; K21.9 Gastro-esophageal reflux disease without esophagitis; I25.10 Atherosclerotic heart disease of native coronary artery without angina pectoris; J44.9 Chronic obstructive pulmonary disease, unspecified; I48.91 Unspecified atrial fibrillation; I25.2 Old myocardial infarction; K50.90 Crohn's disease, unspecified, without complications; Z88.0 Allergy status to penicillin; Z88.1 Allergy status to other antibiotic agents; Z85.828 Personal history of other malignant neoplasm of skin
CPT/HCPCS: 94640; 99283; 99406; J7512; J7613

== ENCOUNTER 2020-08-07 14:04 | Emergency (ER) | payer MEDICAID ==
[~2020-08-07] VITALS: Ht 170.2 cm; Wt 87.0 kg
[2020-08-07] MEDS ORDERED: DEXAMETHASONE 4 MG TABLET PO ONE (14:30)
[2020-08-07] MEDS ORDERED: PLEASE ENTER HEIGHT AND WEIGHT MC SCH (15:00)
[2020-08-07] MEDS ORDERED: ALBUTEROL SULFATE 2.5 MG/3 ML NPPB ONE (15:30)
[2020-08-07] MEDS ORDERED: DEXAMETHASONE 4 MG TABLET ONE (15:42)
[2020-08-07] MEDS ORDERED: ALBUTEROL SULFATE 2.5 MG/3 ML ONE (15:42)
--- NOTE | 2020-08-07 16:00 | NUR ---
PT STATES HAS HAD SOB AND RAN OUT OF COLOSTOMY SUPPLIES. PT STATES SMOKES A PACK A A DAY AND METH DAILY. PT GIVEN BREATHING TREATMENT AND BREATHING BETTER. PT COUGHING UP PHLEM COLOR OF CLEAR.
[2020-08-07 16:54] VITALS: BP 130/72
--- NOTE | 2020-08-07 16:58 | NUR ---
Patientgiven discharge instructions and they have confirmed that they understand the instructions. Patient ambulatory with steady gait. No questions at time of discharge.
== END 2020-08-07 17:10 | disposition home or self-care (01) ==
LOC: ED 16:00
DX: J44.1 Chronic obstructive pulmonary disease with (acute) exacerbation (principal); Z76.0 Encounter for issue of repeat prescription; I11.0 Hypertensive heart disease with heart failure; I50.9 Heart failure, unspecified; I25.2 Old myocardial infarction; I48.91 Unspecified atrial fibrillation; K21.9 Gastro-esophageal reflux disease without esophagitis; E11.9 Type 2 diabetes mellitus without complications
CPT/HCPCS: 71045; 99283

== ENCOUNTER 2020-08-16 17:44 | Emergency (ER) | payer MEDICAID ==
[~2020-08-16] VITALS: Ht 170.2 cm; Wt 90.0 kg
--- NOTE | 2020-08-16 17:53 | NUR ---
CALL X 1, NO ANSWER
[2020-08-16 17:59] VITALS: BP 152/88
--- NOTE | 2020-08-16 19:36 | NUR ---
called central supply...will attempt to locate supplies & bring to er.
== END 2020-08-16 20:24 | disposition home or self-care (01) ==
LOC: ED 20:00
DX: Z93.3 Colostomy status (principal); Z76.0 Encounter for issue of repeat prescription
CPT/HCPCS: 99281

== ENCOUNTER 2020-08-25 12:45 | Emergency (ER) | payer MEDICAID ==
[~2020-08-25] VITALS: Ht 170.2 cm; Wt 97.6 kg
[2020-08-25 13:42] LABS: BASOPHILS % (AUTO) 1 % (0-1); EOSINOPHILS % (AUTO) 1 % (1-7); LYMPHOCYTES % (AUTO) 16 % (22-44); MEAN CORPUSCULAR HEMOGLOBIN 25.3 pg (27.0-34.8); MEAN CORPUSCULAR HGB CONC 32.6 g/dL (32.4-35.8); MEAN PLATELET VOLUME 7.6 fL (7.4-10.4); MONOCYTES % (AUTO) 6 % (2-9); NEUTROPHILS % (AUTO) 77 % (42-75); PLATELET COUNT 262 x10^3/uL (130-400); RED BLOOD COUNT 4.59 x10^6/uL (3.82-5.3); RED CELL DISTRIBUTION WIDTH 19.7 % (9.6-15.2)
[2020-08-25 13:54] LABS: ALANINE AMINOTRANSFERASE 22 U/L (12-78); ALBUMIN 3.4 g/dL (3.4-5.0); ANION GAP 10 mmol/L (5-15); CALCIUM 7.9 mg/dL (8.5-10.1); CHLORIDE 98 mmol/L (98-107); CREATININE 0.72 mg/dL (0.55-1.02)
[2020-08-25 13:58] LABS: ALKALINE PHOSPHATASE 153 U/L (45-117); BILIRUBIN,TOTAL 0.9 mg/dL (0.2-1.0); TOTAL PROTEIN 7.5 g/dL (6.4-8.2); TROPONIN I 0.024 ng/mL (0.000-0.045)
--- NOTE | 2020-08-25 15:35 | NUR ---
safe and vault mechanic: attempted to move patient from lobby to room, no answer in lobby
--- NOTE | 2020-08-25 15:54 | NUR ---
manager scientific: pt from lobby to room via WC
--- NOTE | 2020-08-25 16:23 | NUR ---
PT TO ROOM 35 W/ C/O CP AND ARM PAIN STARTED THIS AM AND PT ALSO IS REQUESTING BREATHING TX. STATES SHE HAS HX COPD. PT STATES SHE IS MAINLY HERE FOR OSTOMY CARE AND SUPPLIES. SUPPLIES ORDERED FROM [facility]. PT REST[facility] MONITORS APPLIED. VSS.
[2020-08-25] MEDS ORDERED: POTASSIUM CHLORIDE 20 MEQ TAB.ER.PRT PO ONE (16:30)
[2020-08-25] MEDS ORDERED: ALBUTEROL/IPRATROPIUM 2.5MG/0.5MG, 3 ML ONE (16:44)
[2020-08-25] MEDS ORDERED: POTASSIUM CHLORIDE 20 MEQ TAB.ER.PRT ONE (16:44)
[2020-08-25 16:59] VITALS: BP 133/64
[2020-08-25] MEDS ORDERED: ALBUTEROL/IPRATROPIUM 2.5MG/0.5MG, 3 ML NPPB ONE (17:00)
--- NOTE | 2020-08-25 17:00 | NUR ---
PT RESTING ON ADITHYA. NADN. CAOS. AWARE OF POC FOR DC AND IS AGREEABLE.
--- NOTE | 2020-08-25 17:25 | NUR ---
PT PROVIDED W/ AT HOME OSTOMY SUPPLIES.
== END 2020-08-25 17:58 | disposition home or self-care (01) ==
LOC: ED 13:49
DX: E87.6 Hypokalemia (principal); R10.9 Unspecified abdominal pain; R07.9 Chest pain, unspecified; R06.2 Wheezing; I48.91 Unspecified atrial fibrillation; I10 Essential (primary) hypertension; E11.9 Type 2 diabetes mellitus without complications; I25.10 Atherosclerotic heart disease of native coronary artery without angina pectoris; J44.9 Chronic obstructive pulmonary disease, unspecified; K21.9 Gastro-esophageal reflux disease without esophagitis; I25.2 Old myocardial infarction; F17.200 Nicotine dependence, unspecified, uncomplicated
CPT/HCPCS: 36415; 71045; 80053; 84484; 85025; 93005; 94640; 99285

== ENCOUNTER 2020-08-29 21:34 | Emergency (ER) | payer MEDICAID ==
--- NOTE | 2020-08-29 21:54 | NUR ---
NIL AT THIS TIME
--- NOTE | 2020-08-29 23:09 | NUR ---
PT C/O OF LOWER ABDOMINAL PAIN. PT STATES SHE IS OUT OF SUPPLIES FOR OSTOMY. ATTACHED TO MONITORS. VSS. BREATHING LABORED. BED IN LOW POSITION, RAILS ENGAGED. CALL LIGHT ON LAP. SPOUSE MELINDA OLGUINEPIFANIO.
--- NOTE | 2020-08-29 23:34 | NUR ---
CALLED HOUSE SUSAN FOR SECOND TIME. LEFT6 A MESSAGE EARLIER. WAS TOLD SHE WOULD BRING OSTOMY KIT TO ME FROM [facility] FOR PT.
[2020-08-30 00:08] VITALS: BP 158/80
--- NOTE | 2020-08-30 00:10 | NUR ---
PERFORMINGH OSTOMY KIT PROCEDURE ON PT. SIZE 37
--- NOTE | 2020-08-30 00:11 | NUR ---
CLEANSED TO PROTOCOL.
--- NOTE | 2020-08-30 01:12 | NUR ---
LATE ENTRY. Patient/Caregiver given discharge instructions and they have confirmed that they understand the instructions. Patient wheelchaired out by spouse. NAD, all questions answered appropriately, denies additional needs at this time. No personal belongings left in room after discharge.
== END 2020-08-30 01:14 | disposition home or self-care (01) ==
LOC: ED 23:03
DX: Z76.0 Encounter for issue of repeat prescription (principal); I25.2 Old myocardial infarction; E11.65 Type 2 diabetes mellitus with hyperglycemia; I11.0 Hypertensive heart disease with heart failure; I50.9 Heart failure, unspecified; I48.91 Unspecified atrial fibrillation; K21.9 Gastro-esophageal reflux disease without esophagitis; J44.9 Chronic obstructive pulmonary disease, unspecified; I25.10 Atherosclerotic heart disease of native coronary artery without angina pectoris; K50.90 Crohn's disease, unspecified, without complications
CPT/HCPCS: 99281

== ENCOUNTER 2020-09-01 15:51 | Emergency (ER) | payer MEDICAID ==
[~2020-09-01] VITALS: Ht 170.2 cm; Wt 97.0 kg
--- NOTE | 2020-09-01 16:09 | NUR ---
pt in room changing into hospital gown.
--- NOTE | 2020-09-01 16:13 | NUR ---
pt states she is at the ER today for colostomy supplies and a breathing treatment.
[2020-09-01] MEDS ORDERED: ALBUTEROL/IPRATROPIUM 2.5MG/0.5MG, 3 ML NEB ONE (16:30)
[2020-09-01] MEDS ORDERED: ALBUTEROL/IPRATROPIUM 2.5MG/0.5MG, 3 ML ONE (16:59)
[2020-09-01 17:26] VITALS: BP 144/81
== END 2020-09-01 17:56 | disposition home or self-care (01) ==
LOC: ED 16:11
DX: J44.9 Chronic obstructive pulmonary disease, unspecified (principal); Z43.3 Encounter for attention to colostomy; R06.2 Wheezing; I10 Essential (primary) hypertension; F17.210 Nicotine dependence, cigarettes, uncomplicated; Z72.9 Problem related to lifestyle, unspecified
CPT/HCPCS: 94640; 99283

== ENCOUNTER 2020-09-04 11:52 | Inpatient (IN) | payer MEDICAID ==
[~2020-09-04] VITALS: Ht 170.2 cm; Wt 109.7 kg
--- NOTE | 2020-09-04 12:04 | NUR ---
PT ON ROADS KENNY IN WHEELCHAIR PER [facility] AND SATINF IN THE HIGH 70% O2 SAT. PT HAS C/O SOB. PT HAS HX OF COPD. PT IN AFIB RHYTHM AT ER TRIAGE. PT A/O X4. PT GIVEN 2.5MG ALBUTEROL AND 125MG SOLUMEDRAL ENROUTE BY EMS.
[2020-09-04] MEDS ORDERED: ALBUTEROL/IPRATROPIUM 2.5MG/0.5MG, 3 ML ONE (12:10)
--- NOTE | 2020-09-04 12:10 | NUR ---
RT AT BS FOR BREATHING TX
[2020-09-04] MEDS ORDERED: ALBUTEROL/IPRATROPIUM 2.5MG/0.5MG, 3 ML NEB ONE (12:30)
[2020-09-04] MEDS ORDERED: SODIUM CHLORIDE 0.9% 1,000 ML IV ONE (12:30)
[2020-09-04] MEDS ORDERED: SODIUM CHLORIDE 0.9% 1,000ML IVBOLUS ONE (12:30)
[2020-09-04] MEDS ORDERED: ALBUTEROL/IPRATROPIUM 2.5MG/0.5MG, 3 ML NPPB PRN (12:30)
--- NOTE | 2020-09-04 12:35 | NUR ---
PT UNABLE TO VOID AT THIS TIME FOR URINE SAMPLE
--- NOTE | 2020-09-04 12:41 | NUR ---
XRAY AT BS
[2020-09-04 12:50] LABS: BASOPHILS % (AUTO) 1 % (0-1); EOSINOPHILS % (AUTO) 1 % (1-7); LYMPHOCYTES % (AUTO) 12 % (22-44); MEAN CORPUSCULAR HEMOGLOBIN 25.2 pg (27.0-34.8); MEAN PLATELET VOLUME 7.4 fL (7.4-10.4); MONOCYTES % (AUTO) 6 % (2-9); NEUTROPHILS % (AUTO) 81 % (42-75); PLATELET COUNT 233 x10^3/uL (130-400); RED BLOOD COUNT 3.95 x10^6/uL (3.82-5.3)
--- NOTE | 2020-09-04 13:00 | NUR ---
PT RESTING COMFORTABLY ON GURNEY, RESPIRATIONS EVEN AND UNLABORED. NADN/VSS. CALL LIGHT WITHIN REACH
[2020-09-04 13:02] LABS: ALANINE AMINOTRANSFERASE 17 U/L (12-78); ALBUMIN 3.2 g/dL (3.4-5.0); ANION GAP 5 mmol/L (5-15); CALCIUM 8.2 mg/dL (8.5-10.1); CHLORIDE 101 mmol/L (98-107); CREATININE 0.68 mg/dL (0.55-1.02)
[2020-09-04 13:06] LABS: ALKALINE PHOSPHATASE 136 U/L (45-117); BILIRUBIN,TOTAL 0.8 mg/dL (0.2-1.0); TOTAL PROTEIN 7.3 g/dL (6.4-8.2); TROPONIN I < 0.015 ng/mL (0.000-0.045)
[2020-09-04] MEDS ORDERED: FUROSEMIDE 40 MG/4 ML IV ONE (13:30)
[2020-09-04] MEDS ORDERED: FUROSEMIDE 40 MG/4 ML ONE (13:55)
--- NOTE | 2020-09-04 14:03 | NUR ---
IN ROOM TO FIND PT O2 SAT OF 82 ON 6 LPM MASK. PT PLACED ON 15 LPM NRB AND MD BROUGHT TO ROOM. LUNG SOUNDS CLEAR AND PT ABLE TO SPEAK IN FULL SENTENCES. NO RESPIRATORY DISTRESS NOTED BUT PT O2 SAT OF 93 ON 15 LPM NRB
[2020-09-04 14:16] LABS: ACETONE, SERUM Negative (Negative)
--- NOTE | 2020-09-04 14:17 | NUR ---
RT AT BS
[2020-09-04] MEDS ORDERED: NITROGLYCERIN OINT 2%, 1GM TP ONE ×2 (14:29→14:37)
--- NOTE | 2020-09-04 14:29 | NUR ---
RT AT BS. PT PLACED ON OPTIFLOW
--- NOTE | 2020-09-04 14:52 | NUR ---
RT NOTIFIED, PT SPO2 89% ON OPTIFLOW. RT STATED THAT SPO2 OF 89% IS IDEAL FOR THE PT.
[2020-09-04 15:23] LABS: C-REACTIVE PROTEIN, QUANT 2.9 mg/dL (0.02-0.49)
--- NOTE | 2020-09-04 15:29 | NUR ---
Pt to be admitted to CCU, room 548. Report called to
[2020-09-04] MEDS ORDERED: LABETALOL 5MG/ML, 20ML IVPush PRN (15:30)
[2020-09-04] MEDS ORDERED: DOCUSATE 100 MG CAPSULE PO PRN (15:30)
[2020-09-04] MEDS ORDERED: hydrALAzine 20 MG/ML, 1ML IVPush PRN (15:30)
[2020-09-04] MEDS ORDERED: DILTIAZEM 5 MG/ML, 5ML ONE (15:53)
[2020-09-04] MEDS ORDERED: DILTIAZEM 5 MG/ML, 5ML IVPush ONE (16:00)
[2020-09-04] MEDS ORDERED: THIAMINE 200 MG in SODIUM CHLORIDE 0.9% 50 ML IV ONE (16:00)
[2020-09-04] MEDS ORDERED: ALBUTEROL-IPRATROPIUM MDI INH INH PRN (16:30)
[2020-09-04 16:59] LABS: MICROSCOPIC NOT IND
[2020-09-04 17:33] LABS: AMPHETAMINE SCREEN, URINE Positive (Negative); BARBITURATE SCREEN, URINE Negative (Negative); BENZODIAZEPINE SCREEN, URINE Negative (Negative); CANNABINOID SCREEN, URINE Negative (Negative); COCAINE SCREEN, URINE Negative (Negative); METHADONE SCREEN, URINE Negative (Negative); OPIATE SCREEN, URINE Negative (Negative)
[2020-09-04] MEDS: FUROSEMIDE 20 MG/2 ML IV SCH (17:55)
[2020-09-04] MEDS: methylPREDNISolone SOD SUCC 40 MG/ML IVPush SCH ×2 (17:55→20:23)
[2020-09-04] MEDS: CARVEDILOL 12.5 MG TABLET PO SCH (17:55)
[2020-09-04] MEDS: INSULIN LISPRO 100 UNITS/ML, PEN SQ-INSULIN SCH ×2 (18:02→20:34)
[2020-09-04] MEDS: ALBUTEROL/IPRATROPIUM 2.5MG/0.5MG, 3 ML NPPB SCH (18:25)
[2020-09-04] MEDS ORDERED: ALBUTEROL/IPRATROPIUM 2.5MG/0.5MG, 3 ML NPPB SCH (19:00)
[2020-09-04] MEDS: LISINOPRIL 10 MG TABLET PO SCH (20:20)
[2020-09-04] MEDS: APIXABAN 5 MG TABLET PO SCH (20:20)
[2020-09-04] MEDS: DOXYCYCLINE 100MG TABLET PO SCH (20:20)
[2020-09-04] MEDS: CEFTRIAXONE 2 GM in DEXTROSE 5% 50 ML IVPB SCH (20:20)
[2020-09-04] MEDS: SODIUM CHLORIDE FLUSH 10ML SYR IVF SCH (20:20)
[2020-09-04] MEDS: ATORVASTATIN 40 MG TABLET PO SCH (20:20)
[2020-09-04] MEDS ORDERED: BUDESONIDE 0.5 MG/2 ML INHA INH SCH (21:00)
[2020-09-05] MEDS: methylPREDNISolone SOD SUCC 40 MG/ML IVPush SCH ×4 (03:47→23:49)
[2020-09-05 04:37] LABS: BASOPHILS % (AUTO) 0 % (0-1); EOSINOPHILS % (AUTO) 0 % (1-7); LYMPHOCYTES % (AUTO) 7 % (22-44); MEAN CORPUSCULAR HEMOGLOBIN 25.2 pg (27.0-34.8); MEAN CORPUSCULAR HGB CONC 32.1 g/dL (32.4-35.8); MEAN PLATELET VOLUME 7.7 fL (7.4-10.4); MONOCYTES % (AUTO) 2 % (2-9); NEUTROPHILS % (AUTO) 92 % (42-75); PLATELET COUNT 214 x10^3/uL (130-400); RED BLOOD COUNT 3.96 x10^6/uL (3.82-5.3); RED CELL DISTRIBUTION WIDTH 19.3 % (9.6-15.2)
[2020-09-05 04:46] LABS: ANION GAP 4 mmol/L (5-15); CALCIUM 7.7 mg/dL (8.5-10.1); CHLORIDE 99 mmol/L (98-107); CREATININE 0.66 mg/dL (0.55-1.02)
[2020-09-05] MEDS: OMEPRAZOLE 20 MG CAPSULE.DR PO SCH (05:36)
[2020-09-05] MEDS: CARVEDILOL 12.5 MG TABLET PO SCH ×2 (05:36→16:20)
[2020-09-05] MEDS: LEVOTHYROXINE 25 MCG TABLET PO SCH (05:37)
[2020-09-05] MEDS: GUAIFENESIN/COD200MG-20MG/10ML LIQUID PO PRN (05:41)
[2020-09-05] MEDS: FUROSEMIDE 20 MG/2 ML IV SCH ×2 (06:33→16:20)
[2020-09-05] MEDS: BUDESONIDE 0.5 MG/2 ML INHA NPPB SCH (06:40)
[2020-09-05] MEDS: ALBUTEROL/IPRATROPIUM 2.5MG/0.5MG, 3 ML NPPB SCH ×4 (06:40→18:55)
[2020-09-05] MEDS: INSULIN LISPRO 100 UNITS/ML, PEN SQ-INSULIN SCH ×6 (08:34→21:33)
[2020-09-05] MEDS: IRON SUCROSE COMPLEX 100MG/5ML IV SCH (08:34)
[2020-09-05] MEDS: LISINOPRIL 10 MG TABLET PO SCH (08:35)
[2020-09-05] MEDS: VENLAFAXINE XR 37.5MG CAP.ER.24H PO SCH (08:35)
[2020-09-05] MEDS: DOXYCYCLINE 100MG TABLET PO SCH ×2 (08:35→21:31)
[2020-09-05] MEDS: APIXABAN 5 MG TABLET PO SCH ×2 (08:36→21:31)
[2020-09-05] MEDS: SODIUM CHLORIDE FLUSH 10ML SYR IVF SCH ×2 (08:36→21:34)
[2020-09-05] MEDS ORDERED: INSULIN GLARGINE 100 UNITS/ML, PEN SQ-INSULIN SCH ×3 (09:00→21:00)
[2020-09-05 14:30] VITALS: BP 133/85
[2020-09-05 16:24] VITALS: BP 115/71
[2020-09-05 20:05] VITALS: BP 102/71
[2020-09-05] MEDS: ATORVASTATIN 40 MG TABLET PO SCH (21:31)
[2020-09-05] MEDS: CEFTRIAXONE 2 GM in DEXTROSE 5% 50 ML IVPB SCH (23:40)
[2020-09-06 00:27] VITALS: BP 109/69
[2020-09-06 05:18] VITALS: BP 142/85
[2020-09-06] MEDS: OMEPRAZOLE 20 MG CAPSULE.DR PO SCH (05:22)
[2020-09-06] MEDS: CARVEDILOL 12.5 MG TABLET PO SCH ×2 (05:22→16:39)
[2020-09-06] MEDS: LEVOTHYROXINE 25 MCG TABLET PO SCH (05:23)
[2020-09-06 06:12] LABS: ANION GAP 5 mmol/L (5-15); CHLORIDE 97 mmol/L (98-107)
[2020-09-06 06:14] LABS: CREATININE 0.65 mg/dL (0.55-1.02)
[2020-09-06] MEDS: ALBUTEROL/IPRATROPIUM 2.5MG/0.5MG, 3 ML NPPB SCH ×4 (07:00→20:00)
[2020-09-06] MEDS: BUDESONIDE 0.5 MG/2 ML INHA NPPB SCH (07:07)
[2020-09-06] MEDS: INSULIN LISPRO 100 UNITS/ML, PEN SQ-INSULIN SCH ×7 (08:13→22:19)
[2020-09-06] MEDS: methylPREDNISolone SOD SUCC 40 MG/ML IVPush SCH (08:15)
[2020-09-06] MEDS: DOXYCYCLINE 100MG TABLET PO SCH ×2 (08:15→22:18)
[2020-09-06] MEDS: APIXABAN 5 MG TABLET PO SCH ×2 (08:15→22:18)
[2020-09-06] MEDS: IRON SUCROSE COMPLEX 100MG/5ML IV SCH (08:15)
[2020-09-06] MEDS: FUROSEMIDE 20 MG/2 ML IV SCH ×2 (08:15→16:39)
[2020-09-06] MEDS: LISINOPRIL 10 MG TABLET PO SCH (08:15)
[2020-09-06] MEDS: VENLAFAXINE XR 37.5MG CAP.ER.24H PO SCH (08:15)
[2020-09-06] MEDS: SODIUM CHLORIDE FLUSH 10ML SYR IVF SCH ×2 (08:16→22:21)
[2020-09-06] MEDS: GUAIFENESIN/COD200MG-20MG/10ML LIQUID PO PRN (09:06)
[2020-09-06] MEDS: INSULIN GLARGINE 100 UNITS/ML, PEN SQ-INSULIN SCH ×2 (09:07→22:20)
[2020-09-06] MEDS: ACETAMINOPHEN 325 MG TABLET PO PRN ×2 (09:07→22:33)
[2020-09-06 09:46] VITALS: BP 134/86
[2020-09-06] MEDS: OXYcodone IR 5MG TABLET PO PRN (11:42)
[2020-09-06 14:00] VITALS: BP 135/75
[2020-09-06 20:21] VITALS: BP 107/75
[2020-09-06] MEDS: ATORVASTATIN 40 MG TABLET PO SCH (22:18)
[2020-09-07 01:15] VITALS: BP 121/66
[2020-09-07] MEDS: OXYcodone IR 5MG TABLET PO PRN ×3 (01:20→21:49)
[2020-09-07] MEDS: methylPREDNISolone SOD SUCC 40 MG/ML IVPush SCH ×2 (03:16→16:30)
[2020-09-07] MEDS: OMEPRAZOLE 20 MG CAPSULE.DR PO SCH (05:45)
[2020-09-07] MEDS: CARVEDILOL 12.5 MG TABLET PO SCH ×2 (05:45→16:31)
[2020-09-07] MEDS: LEVOTHYROXINE 25 MCG TABLET PO SCH (05:46)
[2020-09-07 05:47] VITALS: BP 144/90
[2020-09-07 06:03] LABS: ANION GAP 3 mmol/L (5-15); CALCIUM 7.9 mg/dL (8.5-10.1); CHLORIDE 97 mmol/L (98-107); CREATININE 0.74 mg/dL (0.55-1.02)
[2020-09-07] MEDS: BUDESONIDE 0.5 MG/2 ML INHA NPPB SCH (06:27)
[2020-09-07] MEDS: ALBUTEROL/IPRATROPIUM 2.5MG/0.5MG, 3 ML NPPB SCH ×4 (06:27→20:00)
[2020-09-07] MEDS: INSULIN LISPRO 100 UNITS/ML, PEN SQ-INSULIN SCH ×5 (07:00→21:39)
[2020-09-07 07:55] VITALS: BP 108/71
[2020-09-07] MEDS: IRON SUCROSE COMPLEX 100MG/5ML IV SCH ×2 (08:15→11:53)
[2020-09-07] MEDS: APIXABAN 5 MG TABLET PO SCH ×2 (08:16→21:39)
[2020-09-07] MEDS: VENLAFAXINE XR 37.5MG CAP.ER.24H PO SCH (08:16)
[2020-09-07] MEDS: LISINOPRIL 10 MG TABLET PO SCH (08:16)
[2020-09-07] MEDS: DOXYCYCLINE 100MG TABLET PO SCH ×2 (08:16→21:39)
[2020-09-07] MEDS: SODIUM CHLORIDE FLUSH 10ML SYR IVF SCH ×2 (08:17→21:00)
[2020-09-07] MEDS: FUROSEMIDE 20 MG/2 ML IV SCH (08:17)
[2020-09-07] MEDS ORDERED: INSULIN GLARGINE 100 UNITS/ML, PEN SQ-INSULIN SCH (09:00)
[2020-09-07] MEDS: INSULIN GLARGINE 100 UNITS/ML, PEN SQ-INSULIN SCH ×2 (11:15→21:38)
[2020-09-07 13:04] VITALS: BP 112/63
[2020-09-07 19:52] VITALS: BP 137/88
[2020-09-07] MEDS: MELATONIN 5 MG TABLET PO PRN (21:39)
[2020-09-07] MEDS: ATORVASTATIN 40 MG TABLET PO SCH (21:39)
[2020-09-07] MEDS: ACETAMINOPHEN 325 MG TABLET PO PRN (21:50)
[2020-09-07] MEDS ORDERED: NICOTINE 21 MG/24 HR PATCH.TD24 ONE (22:04)
[2020-09-07] MEDS: NICOTINE 21 MG/24 HR PATCH.TD24 TD SCH (22:12)
[2020-09-08] MEDS: methylPREDNISolone SOD SUCC 40 MG/ML IVPush SCH ×2 (03:39→14:57)
[2020-09-08 03:44] VITALS: BP 99/67
[2020-09-08] MEDS: ACETAMINOPHEN 325 MG TABLET PO PRN ×3 (03:56→12:29)
[2020-09-08] MEDS: OXYcodone IR 5MG TABLET PO PRN ×5 (03:57→20:34)
[2020-09-08 05:26] VITALS: BP 135/92
[2020-09-08] MEDS: LEVOTHYROXINE 25 MCG TABLET PO SCH (06:00)
[2020-09-08] MEDS: CARVEDILOL 12.5 MG TABLET PO SCH ×2 (06:06→17:48)
[2020-09-08] MEDS: OMEPRAZOLE 20 MG CAPSULE.DR PO SCH (06:06)
[2020-09-08] MEDS: ALBUTEROL/IPRATROPIUM 2.5MG/0.5MG, 3 ML NPPB SCH ×4 (06:54→19:40)
[2020-09-08] MEDS: BUDESONIDE 0.5 MG/2 ML INHA NPPB SCH (06:54)
[2020-09-08 07:24] VITALS: BP 132/89
[2020-09-08] MEDS: INSULIN LISPRO 100 UNITS/ML, PEN SQ-INSULIN SCH ×4 (08:08→20:35)
[2020-09-08] MEDS: IRON SUCROSE COMPLEX 100MG/5ML IV SCH (08:09)
[2020-09-08] MEDS: INSULIN GLARGINE 100 UNITS/ML, PEN SQ-INSULIN SCH ×2 (08:09→20:36)
[2020-09-08] MEDS: APIXABAN 5 MG TABLET PO SCH ×2 (08:10→20:34)
[2020-09-08] MEDS: DOXYCYCLINE 100MG TABLET PO SCH ×2 (08:10→20:34)
[2020-09-08] MEDS: LISINOPRIL 10 MG TABLET PO SCH (08:10)
[2020-09-08] MEDS: VENLAFAXINE XR 37.5MG CAP.ER.24H PO SCH (08:11)
[2020-09-08] MEDS: SODIUM CHLORIDE FLUSH 10ML SYR IVF SCH ×2 (08:11→20:36)
[2020-09-08] MEDS ORDERED: FUROSEMIDE 20 MG/2 ML IV SCH (09:00)
[2020-09-08 13:37] VITALS: BP 128/86
[2020-09-08 19:01] VITALS: BP 111/77
[2020-09-08] MEDS: ATORVASTATIN 40 MG TABLET PO SCH (20:34)
[2020-09-08] MEDS: MELATONIN 5 MG TABLET PO PRN (20:34)
[2020-09-09] MEDS: OXYcodone IR 5MG TABLET PO PRN ×5 (00:55→20:58)
[2020-09-09 01:21] VITALS: BP 147/89
[2020-09-09] MEDS: methylPREDNISolone SOD SUCC 40 MG/ML IVPush SCH (03:24)
[2020-09-09 04:57] VITALS: BP 157/117
[2020-09-09] MEDS: LEVOTHYROXINE 25 MCG TABLET PO SCH (05:01)
[2020-09-09] MEDS: CARVEDILOL 12.5 MG TABLET PO SCH ×2 (05:01→17:57)
[2020-09-09] MEDS: OMEPRAZOLE 20 MG CAPSULE.DR PO SCH (05:02)
[2020-09-09 07:13] VITALS: BP 148/98
[2020-09-09 07:34] LABS: ANION GAP 6 mmol/L (5-15); CHLORIDE 97 mmol/L (98-107)
[2020-09-09 07:41] LABS: CREATININE 0.77 mg/dL (0.55-1.02)
[2020-09-09] MEDS: INSULIN LISPRO 100 UNITS/ML, PEN SQ-INSULIN SCH ×4 (07:42→21:00)
[2020-09-09] MEDS: NICOTINE 21 MG/24 HR PATCH.TD24 TD SCH (07:43)
[2020-09-09] MEDS: DOXYCYCLINE 100MG TABLET PO SCH (07:43)
[2020-09-09] MEDS: ACETAMINOPHEN 325 MG TABLET PO PRN (07:43)
[2020-09-09] MEDS: APIXABAN 5 MG TABLET PO SCH ×2 (07:44→20:58)
[2020-09-09] MEDS: FUROSEMIDE 40 MG TABLET PO SCH (07:44)
[2020-09-09] MEDS: LISINOPRIL 10 MG TABLET PO SCH (07:44)
[2020-09-09] MEDS: VENLAFAXINE XR 37.5MG CAP.ER.24H PO SCH (07:46)
[2020-09-09] MEDS: SODIUM CHLORIDE FLUSH 10ML SYR IVF SCH ×2 (07:49→21:00)
[2020-09-09] MEDS: ALBUTEROL/IPRATROPIUM 2.5MG/0.5MG, 3 ML NPPB SCH ×4 (08:00→19:12)
[2020-09-09] MEDS ORDERED: INSULIN GLARGINE 100 UNITS/ML, PEN SQ-INSULIN SCH (09:00)
[2020-09-09] MEDS: GUAIFENESIN/COD200MG-20MG/10ML LIQUID PO PRN (10:28)
[2020-09-09] MEDS: BUDESONIDE 0.5 MG/2 ML INHA NPPB SCH ×2 (10:35→14:35)
[2020-09-09] MEDS ORDERED: MAGNESIUM SULFATE PMX 4GM/100M 100 ML ONE (12:27)
[2020-09-09] MEDS ORDERED: AMIODARONE 200 MG TABLET PO ONE (12:30)
[2020-09-09] MEDS ORDERED: MAGNESIUM SULFATE PMX 4GM/100M 100 ML IVPB ONE (12:30)
[2020-09-09 14:27] VITALS: BP 108/81
[2020-09-09 20:18] VITALS: BP 119/74
[2020-09-09 20:50] VITALS: BP 125/86
[2020-09-09] MEDS: AMIODARONE 200 MG TABLET PO SCH (20:58)
[2020-09-09] MEDS: ATORVASTATIN 40 MG TABLET PO SCH (20:58)
[2020-09-09] MEDS: MELATONIN 5 MG TABLET PO PRN (20:58)
[2020-09-09] MEDS: INSULIN GLARGINE 100 UNITS/ML, PEN SQ-INSULIN SCH (21:00)
[2020-09-10 02:08] VITALS: BP 133/86
[2020-09-10] MEDS: OXYcodone IR 5MG TABLET PO PRN ×5 (02:25→22:20)
[2020-09-10 05:11] LABS: ANION GAP 1 mmol/L (5-15); CALCIUM 8.3 mg/dL (8.5-10.1); CHLORIDE 96 mmol/L (98-107)
[2020-09-10 05:13] LABS: CREATININE 0.66 mg/dL (0.55-1.02)
[2020-09-10 05:31] VITALS: BP 134/100
[2020-09-10] MEDS: CARVEDILOL 12.5 MG TABLET PO SCH ×2 (05:35→17:59)
[2020-09-10] MEDS: LEVOTHYROXINE 25 MCG TABLET PO SCH (05:35)
[2020-09-10] MEDS: OMEPRAZOLE 20 MG CAPSULE.DR PO SCH (05:35)
[2020-09-10] MEDS ORDERED: MAGNESIUM SULFATE PMX 4GM/100M 100 ML IVPB ONE (06:30)
[2020-09-10] MEDS: ALBUTEROL/IPRATROPIUM 2.5MG/0.5MG, 3 ML NPPB SCH ×4 (07:40→21:00)
[2020-09-10 08:30] VITALS: BP 110/75
[2020-09-10] MEDS: INSULIN GLARGINE 100 UNITS/ML, PEN SQ-INSULIN SCH ×2 (08:43→20:19)
[2020-09-10] MEDS: INSULIN LISPRO 100 UNITS/ML, PEN SQ-INSULIN SCH ×4 (08:43→20:19)
[2020-09-10] MEDS: SODIUM CHLORIDE FLUSH 10ML SYR IVF SCH ×2 (08:44→20:22)
[2020-09-10] MEDS: FUROSEMIDE 40 MG TABLET PO SCH (08:44)
[2020-09-10] MEDS: GUAIFENESIN/COD200MG-20MG/10ML LIQUID PO PRN (08:44)
[2020-09-10] MEDS: VENLAFAXINE XR 37.5MG CAP.ER.24H PO SCH (08:45)
[2020-09-10] MEDS: AMIODARONE 200 MG TABLET PO SCH ×2 (08:45→20:20)
[2020-09-10] MEDS: LISINOPRIL 10 MG TABLET PO SCH (08:45)
[2020-09-10] MEDS: ACETAMINOPHEN 325 MG TABLET PO PRN ×4 (08:45→22:20)
[2020-09-10] MEDS: APIXABAN 5 MG TABLET PO SCH ×2 (08:45→20:19)
[2020-09-10] MEDS: NICOTINE 21 MG/24 HR PATCH.TD24 TD SCH (08:46)
[2020-09-10 14:00] VITALS: BP 132/79
[2020-09-10 19:31] VITALS: BP 149/86
[2020-09-10] MEDS: ATORVASTATIN 40 MG TABLET PO SCH (20:19)
[2020-09-11 00:42] VITALS: BP 143/85
[2020-09-11] MEDS: GUAIFENESIN/COD200MG-20MG/10ML LIQUID PO PRN (03:05)
[2020-09-11] MEDS: OXYcodone IR 5MG TABLET PO PRN ×3 (03:15→22:10)
[2020-09-11 05:19] VITALS: BP 156/106
[2020-09-11] MEDS: LEVOTHYROXINE 25 MCG TABLET PO SCH (05:21)
[2020-09-11] MEDS: CARVEDILOL 12.5 MG TABLET PO SCH ×2 (05:21→18:32)
[2020-09-11] MEDS: OMEPRAZOLE 20 MG CAPSULE.DR PO SCH (05:21)
[2020-09-11 05:32] LABS: BASOPHILS % (AUTO) 0 % (0-1); EOSINOPHILS % (AUTO) 1 % (1-7); LYMPHOCYTES % (AUTO) 15 % (22-44); MEAN CORPUSCULAR HEMOGLOBIN 25.9 pg (27.0-34.8); MEAN CORPUSCULAR HGB CONC 31.9 g/dL (32.4-35.8); MEAN PLATELET VOLUME 7.6 fL (7.4-10.4); MONOCYTES % (AUTO) 7 % (2-9); NEUTROPHILS % (AUTO) 77 % (42-75); PLATELET COUNT 202 x10^3/uL (130-400); RED BLOOD COUNT 4.31 x10^6/uL (3.82-5.3); RED CELL DISTRIBUTION WIDTH 20.7 % (9.6-15.2)
[2020-09-11 05:36] LABS: CALCIUM 8.3 mg/dL (8.5-10.1); CHLORIDE 96 mmol/L (98-107)
[2020-09-11 05:37] LABS: CREATININE 0.73 mg/dL (0.55-1.02)
[2020-09-11 05:42] LABS: ANION GAP 2 mmol/L (5-15)
[2020-09-11] MEDS ORDERED: MAGNESIUM SULFATE PMX 2GM/50ML 50 ML IV ONE (06:30)
[2020-09-11] MEDS: ALBUTEROL/IPRATROPIUM 2.5MG/0.5MG, 3 ML NPPB SCH ×4 (07:45→20:00)
[2020-09-11] MEDS: BUDESONIDE 0.5 MG/2 ML INHA NPPB SCH ×2 (07:45→13:55)
[2020-09-11 08:12] VITALS: BP 142/95
[2020-09-11] MEDS: INSULIN LISPRO 100 UNITS/ML, PEN SQ-INSULIN SCH ×4 (08:34→22:11)
[2020-09-11] MEDS: INSULIN GLARGINE 100 UNITS/ML, PEN SQ-INSULIN SCH ×2 (08:34→22:12)
[2020-09-11] MEDS: AMIODARONE 200 MG TABLET PO SCH ×2 (08:35→22:10)
[2020-09-11] MEDS: VENLAFAXINE XR 37.5MG CAP.ER.24H PO SCH (08:35)
[2020-09-11] MEDS: LISINOPRIL 10 MG TABLET PO SCH (08:35)
[2020-09-11] MEDS: NICOTINE 21 MG/24 HR PATCH.TD24 TD SCH (08:35)
[2020-09-11] MEDS: APIXABAN 5 MG TABLET PO SCH ×2 (08:36→22:10)
[2020-09-11] MEDS: SODIUM CHLORIDE FLUSH 10ML SYR IVF SCH ×2 (08:36→22:10)
[2020-09-11] MEDS: FUROSEMIDE 40 MG TABLET PO SCH (08:37)
[2020-09-11] MEDS: ACETAMINOPHEN 325 MG TABLET PO PRN ×2 (09:08→22:09)
[2020-09-11 14:00] VITALS: BP 138/72
[2020-09-11 19:39] VITALS: BP 116/82
[2020-09-11] MEDS: ATORVASTATIN 40 MG TABLET PO SCH (22:10)
[2020-09-11] MEDS: MELATONIN 5 MG TABLET PO PRN (22:10)
[2020-09-12 01:48] VITALS: BP 119/72
[2020-09-12] MEDS: ONDANSETRON 2MG/ML, 2ML IVPush PRN ×2 (04:10→17:37)
[2020-09-12] MEDS: ACETAMINOPHEN 325 MG TABLET PO PRN ×2 (04:11→17:47)
[2020-09-12] MEDS: LEVOTHYROXINE 25 MCG TABLET PO SCH (06:00)
[2020-09-12 06:05] VITALS: BP 115/81
[2020-09-12] MEDS: OMEPRAZOLE 20 MG CAPSULE.DR PO SCH (06:10)
[2020-09-12] MEDS: CARVEDILOL 12.5 MG TABLET PO SCH ×2 (06:10→16:56)
[2020-09-12] MEDS: ALBUTEROL/IPRATROPIUM 2.5MG/0.5MG, 3 ML NPPB SCH ×4 (06:50→19:14)
[2020-09-12] MEDS: INSULIN LISPRO 100 UNITS/ML, PEN SQ-INSULIN SCH ×4 (08:05→21:50)
[2020-09-12] MEDS: LISINOPRIL 10 MG TABLET PO SCH (09:32)
[2020-09-12] MEDS: VENLAFAXINE XR 37.5MG CAP.ER.24H PO SCH (09:32)
[2020-09-12] MEDS: NICOTINE 21 MG/24 HR PATCH.TD24 TD SCH (09:32)
[2020-09-12] MEDS: APIXABAN 5 MG TABLET PO SCH ×2 (09:32→21:47)
[2020-09-12] MEDS: AMIODARONE 200 MG TABLET PO SCH ×2 (09:32→21:47)
[2020-09-12] MEDS: FUROSEMIDE 40 MG TABLET PO SCH (09:33)
[2020-09-12] MEDS: INSULIN GLARGINE 100 UNITS/ML, PEN SQ-INSULIN SCH ×2 (09:33→21:49)
[2020-09-12] MEDS: SODIUM CHLORIDE FLUSH 10ML SYR IVF SCH ×2 (09:34→21:54)
[2020-09-12 13:06] VITALS: BP 111/70
[2020-09-12] MEDS: OXYcodone IR 5MG TABLET PO PRN ×2 (17:47→21:48)
[2020-09-12 19:31] VITALS: BP 132/84
[2020-09-12 21:45] VITALS: BP 121/83
[2020-09-12] MEDS: MELATONIN 5 MG TABLET PO PRN (21:47)
[2020-09-12] MEDS: ATORVASTATIN 40 MG TABLET PO SCH (21:47)
[2020-09-13 01:24] VITALS: BP 130/89
[2020-09-13] MEDS: ACETAMINOPHEN 325 MG TABLET PO PRN ×2 (01:32→19:56)
[2020-09-13 05:37] VITALS: BP 127/81
[2020-09-13] MEDS: CARVEDILOL 12.5 MG TABLET PO SCH ×2 (05:37→17:10)
[2020-09-13] MEDS: OXYcodone IR 5MG TABLET PO PRN (05:38)
[2020-09-13] MEDS: LEVOTHYROXINE 25 MCG TABLET PO SCH (05:38)
[2020-09-13] MEDS: OMEPRAZOLE 20 MG CAPSULE.DR PO SCH (05:38)
[2020-09-13] MEDS: ALBUTEROL/IPRATROPIUM 2.5MG/0.5MG, 3 ML NPPB SCH ×4 (06:44→21:30)
[2020-09-13] MEDS: BUDESONIDE 0.5 MG/2 ML INHA NPPB SCH (06:45)
[2020-09-13] MEDS: SODIUM CHLORIDE FLUSH 10ML SYR IVF SCH ×2 (08:21→19:48)
[2020-09-13] MEDS: INSULIN LISPRO 100 UNITS/ML, PEN SQ-INSULIN SCH ×4 (08:21→19:55)
[2020-09-13] MEDS: AMIODARONE 200 MG TABLET PO SCH ×2 (08:22→19:57)
[2020-09-13] MEDS: LISINOPRIL 10 MG TABLET PO SCH (08:22)
[2020-09-13] MEDS: INSULIN GLARGINE 100 UNITS/ML, PEN SQ-INSULIN SCH ×2 (08:22→19:56)
[2020-09-13] MEDS: VENLAFAXINE XR 37.5MG CAP.ER.24H PO SCH (08:23)
[2020-09-13] MEDS: NICOTINE 21 MG/24 HR PATCH.TD24 TD SCH (08:23)
[2020-09-13] MEDS: APIXABAN 5 MG TABLET PO SCH ×2 (08:23→19:56)
[2020-09-13] MEDS: FUROSEMIDE 40 MG TABLET PO SCH (08:23)
[2020-09-13 11:19] VITALS: BP 87/52
[2020-09-13 12:57] VITALS: BP 121/62
[2020-09-13 18:42] VITALS: BP 121/68
[2020-09-13] MEDS: MELATONIN 5 MG TABLET PO PRN (19:56)
[2020-09-13] MEDS: ATORVASTATIN 40 MG TABLET PO SCH (19:57)
[2020-09-14 01:21] VITALS: BP_SYST 117; BP_SYST 121; BP_DIAS 62; BP_DIAS 68
[2020-09-14 06:00] VITALS: BP 135/90
[2020-09-14] MEDS: LEVOTHYROXINE 25 MCG TABLET PO SCH (06:00)
[2020-09-14] MEDS: CARVEDILOL 12.5 MG TABLET PO SCH (06:26)
[2020-09-14] MEDS: OMEPRAZOLE 20 MG CAPSULE.DR PO SCH (06:26)
[2020-09-14] MEDS: ACETAMINOPHEN 325 MG TABLET PO PRN (06:26)
[2020-09-14 07:03] VITALS: BP 121/76
[2020-09-14] MEDS: INSULIN LISPRO 100 UNITS/ML, PEN SQ-INSULIN SCH ×2 (08:44→12:17)
[2020-09-14] MEDS ORDERED: INSULIN GLARGINE 100 UNITS/ML, PEN SQ-INSULIN ONE (09:00)
[2020-09-14] MEDS: AMIODARONE 200 MG TABLET PO SCH (09:15)
[2020-09-14] MEDS: LISINOPRIL 10 MG TABLET PO SCH (09:16)
[2020-09-14] MEDS: NICOTINE 21 MG/24 HR PATCH.TD24 TD SCH (09:16)
[2020-09-14] MEDS: VENLAFAXINE XR 37.5MG CAP.ER.24H PO SCH (09:16)
[2020-09-14] MEDS: APIXABAN 5 MG TABLET PO SCH (09:16)
[2020-09-14] MEDS: FUROSEMIDE 40 MG TABLET PO SCH (09:16)
[2020-09-14] MEDS: SODIUM CHLORIDE FLUSH 10ML SYR IVF SCH (09:22)
[2020-09-14] MEDS ORDERED: INSULIN LISPRO 100 UNITS/ML, PEN SQ-INSULIN SCH (11:30)
[2020-09-14] MEDS ORDERED: ALBUTEROL/IPRATROPIUM 2.5MG/0.5MG, 3 ML NPPB SCH (11:30)
[2020-09-14] MEDS: BUDESONIDE 0.5 MG/2 ML INHA NPPB SCH (11:45)
[2020-09-14 13:17] VITALS: BP 139/91
[2020-09-15] MEDS ORDERED: INSULIN GLARGINE 100 UNITS/ML, PEN SQ-INSULIN SCH (09:00)
== END 2020-09-14 14:56 | disposition left against medical advice (07) | DRG 133 ==
LOC: ED 12:11 → EDIP 14:37 → CCU 16:06 → 4WST 09-05 11:55
PROVIDERS: ADMIT Hospitalist; ATTEND Hospitalist
PROC: 5A0935A Assistance with Respiratory Ventilation, Less than 24 Consecutive Hours, High Flow/Velocity Cannula (ICD-10-PCS; principal; 2020-09-04)
PROC: 5A0935A Assistance with Respiratory Ventilation, Less than 24 Consecutive Hours, High Flow/Velocity Cannula (ICD-10-PCS; 2020-09-06)
DX: J96.01 Acute respiratory failure with hypoxia (principal); I50.33 Acute on chronic diastolic (congestive) heart failure; I49.5 Sick sinus syndrome; I27.20 Pulmonary hypertension, unspecified; E11.65 Type 2 diabetes mellitus with hyperglycemia; I08.1 Rheumatic disorders of both mitral and tricuspid valves; I11.0 Hypertensive heart disease with heart failure; J96.02 Acute respiratory failure with hypercapnia; J44.1 Chronic obstructive pulmonary disease with (acute) exacerbation; K50.90 Crohn's disease, unspecified, without complications; Z20.822 Contact with and (suspected) exposure to COVID-19; I48.20 Chronic atrial fibrillation, unspecified; K21.9 Gastro-esophageal reflux disease without esophagitis; I25.10 Atherosclerotic heart disease of native coronary artery without angina pectoris; E03.9 Hypothyroidism, unspecified; E78.5 Hyperlipidemia, unspecified; F15.10 Other stimulant abuse, uncomplicated; D64.9 Anemia, unspecified; Z53.29 Procedure and treatment not carried out because of patient's decision for other reasons; Z59.0 Homelessness; Z95.0 Presence of cardiac pacemaker; Z88.0 Allergy status to penicillin; Z88.1 Allergy status to other antibiotic agents; Z82.49 Family history of ischemic heart disease and other diseases of the circulatory system; Z90.710 Acquired absence of both cervix and uterus; Z89.021 Acquired absence of right finger(s); Z79.899 Other long term (current) drug therapy
CPT/HCPCS: 36415; 36600; 84145; 96361; 96374; 99283; 99291; J7626; 71045; 80048; 80053; 80307; 81003; 82010; 82140; 82728; 82803; 82947; 82962; 83036; 83540; 83550; 83605; 83615; 83735; 83880; 84100; 84484; 85025; 85379; 86140; 87070; 87081; 87147; 87205; 93005; 94640; G0378; J0696; J1756; J1940; J2405; J3411; U0005; J1815; J2920; J3475; J7030; J7512; U0003

== ENCOUNTER 2020-09-21 19:46 | Emergency (ER) | payer MEDICAID ==
[~2020-09-21] VITALS: Ht 170.2 cm; Wt 99.0 kg
--- NOTE | 2020-09-21 19:53 | NUR ---
PT IN RESTROOM WHEN CALLED BACK TO TRIAGE X2
[2020-09-21 19:57] VITALS: BP 152/80
[2020-09-21] MEDS ORDERED: ALBUTEROL/IPRATROPIUM 2.5MG/0.5MG, 3 ML NPPB ONE (20:00)
== END 2020-09-21 22:49 | disposition left against medical advice (07) ==
LOC: ED 22:43
DX: M25.511 Pain in right shoulder (principal); R06.02 Shortness of breath; R94.31 Abnormal electrocardiogram [ECG] [EKG]
CPT/HCPCS: 71045; 93005; 99284

== ENCOUNTER 2020-10-16 00:58 | Inpatient (IN) | payer MEDICAID ==
[~2020-10-16] VITALS: Ht 170.2 cm; Wt 110.5 kg
--- NOTE | 2020-10-16 03:45 | NUR ---
PT WHEELED TO ROOM 18 AT THIS TIME. CARE ASSUMED. PT HARD TO UNDERSTAND. APPEARS TO BE UNDER THE INFLUENCE. PT REPORTS SHE'S HERE FOR MORE COLOSTOMY BAGS.
[2020-10-16] MEDS ORDERED: DILTIAZEM 5 MG/ML, 5ML ONE (04:22)
[2020-10-16] MEDS ORDERED: methylPREDNISolone SOD SUCC 125 MG/2 ML ONE (04:22)
[2020-10-16] MEDS ORDERED: ALBUTEROL/IPRATROPIUM 2.5MG/0.5MG, 3 ML ONE (04:22)
[2020-10-16] MEDS ORDERED: SODIUM CHLORIDE FLUSH 10ML SYR IVF ONE (04:30)
[2020-10-16] MEDS ORDERED: SODIUM CHLORIDE 0.9% 1,000ML IVBOLUS ONE (04:30)
[2020-10-16] MEDS ORDERED: ALBUTEROL/IPRATROPIUM 2.5MG/0.5MG, 3 ML NPPB ONE (04:30)
[2020-10-16] MEDS ORDERED: methylPREDNISolone SOD SUCC 125 MG/2 ML IV ONE (04:30)
[2020-10-16] MEDS ORDERED: DILTIAZEM 5 MG/ML, 5ML IVPush ONE (04:30)
--- NOTE | 2020-10-16 04:47 | NUR ---
PT SWABBED FOR COVID 19 AND WALKED TO LAB
[2020-10-16 05:01] LABS: BASOPHILS % (AUTO) 1 % (0-1); EOSINOPHILS % (AUTO) 1 % (1-7); LYMPHOCYTES % (AUTO) 16 % (22-44); MEAN CORPUSCULAR HEMOGLOBIN 26.9 pg (27.0-34.8); MEAN CORPUSCULAR HGB CONC 32.6 g/dL (32.4-35.8); MEAN PLATELET VOLUME 8.2 fL (7.4-10.4); MONOCYTES % (AUTO) 9 % (2-9); NEUTROPHILS % (AUTO) 74 % (42-75); PLATELET COUNT 262 x10^3/uL (130-400); RED BLOOD COUNT 4.53 x10^6/uL (3.82-5.3); RED CELL DISTRIBUTION WIDTH 22.1 % (9.6-15.2)
--- NOTE | 2020-10-16 05:02 | NUR ---
NOTIFIED PROVIDER OF PT STILL AFIB RVR. SEE EMAR FOR NEW ORDERS
[2020-10-16 05:08] LABS: INTERNATIONAL NORMALIZED RATIO 1.07 (0.93-1.1); PROTHROMBIN TIME 11.4 Seconds (9.6-11.5)
[2020-10-16 05:11] LABS: CHLORIDE 102 mmol/L (98-107)
[2020-10-16 05:28] LABS: ANISOCYTOSIS 1+
[2020-10-16 05:29] LABS: <PLATELET ESTIMATE> ADEQUATE; <PLT MORPHOLOGY> NORMAL PLT MORPH; MICROCYTOSIS 1+; OVALOCYTES 1+
[2020-10-16] MEDS ORDERED: DILTIAZEM 125 MG in SODIUM CHLORIDE 0.9% 100 ML IV SCH (05:30)
[2020-10-16 05:33] LABS: SPHEROCYTES 1+
[2020-10-16 05:38] LABS: ALANINE AMINOTRANSFERASE 28 U/L (12-78); ALBUMIN 3.5 g/dL (3.4-5.0); ALKALINE PHOSPHATASE 94 U/L (45-117); ANION GAP 9 mmol/L (5-15); BILIRUBIN,TOTAL 0.8 mg/dL (0.2-1.0); CALCIUM 9.1 mg/dL (8.5-10.1); CREATININE 0.84 mg/dL (0.55-1.02); TOTAL PROTEIN 7.8 g/dL (6.4-8.2); TROPONIN I < 0.015 ng/mL (0.000-0.045)
[2020-10-16] MEDS ORDERED: FUROSEMIDE 40 MG/4 ML ONE (05:59)
[2020-10-16] MEDS ORDERED: FUROSEMIDE 40 MG/4 ML IV ONE (06:00)
[2020-10-16] MEDS ORDERED: POTASSIUM CHLORIDE 20 MEQ TAB.ER.PRT ONE (06:29)
[2020-10-16] MEDS ORDERED: POTASSIUM CHLORIDE 20 MEQ TAB.ER.PRT PO ONE (06:30)
--- NOTE | 2020-10-16 06:39 | NUR ---
PT WAITING COLOSTOMY BAG. PT SLEEPING.
[2020-10-16] MEDS ORDERED: LORazepam 2 MG/ML, 1ML IVPush PRN (07:00)
[2020-10-16] MEDS ORDERED: TEMPLATE NON-FORMULARY MED. (Ipratropium/Albuterol Sulfate (Combivent Respimat Inhal Spray INH PRN (07:00)
--- NOTE | 2020-10-16 07:01 | NUR ---
CARE TRANSFERED. REPORT GIVEN TO SHERIF SCANLON
[2020-10-16] MEDS: POTASSIUM CHLORIDE 20 MEQ TAB.ER.PRT PO SCH ×3 (07:31→17:15)
[2020-10-16] MEDS ORDERED: DEXAMETHASONE 4 MG/ML, 1ML ONE (07:37)
[2020-10-16] MEDS ORDERED: OMEPRAZOLE 20 MG CAPSULE.DR ONE (07:37)
[2020-10-16] MEDS ORDERED: APIXABAN 5 MG TABLET ONE (07:37)
[2020-10-16] MEDS ORDERED: ASCORBIC ACID 500 MG TABLET ONE (07:38)
[2020-10-16] MEDS ORDERED: ZINC SULFATE 220 MG CAPSULE ONE (07:38)
[2020-10-16] MEDS ORDERED: METOPROLOL TARTRATE 50 MG TAB ONE (07:38)
[2020-10-16] MEDS ORDERED: NICOTINE 21 MG/24 HR PATCH.TD24 ONE (07:38)
[2020-10-16] MEDS ORDERED: GUAIFENESIN ER 600 MG TABLET ONE (07:38)
[2020-10-16] MEDS ORDERED: CHOLECALCIFEROL 1,000 UNIT TABLET ONE (07:38)
[2020-10-16 07:43] LABS: C-REACTIVE PROTEIN, QUANT 5.9 mg/dL (0.02-0.49)
[2020-10-16] MEDS: METOPROLOL TARTRATE 50 MG TAB PO SCH ×2 (08:23→17:16)
[2020-10-16] MEDS: ASCORBIC ACID 500 MG TABLET PO SCH ×2 (08:24→17:16)
[2020-10-16] MEDS: APIXABAN 5 MG TABLET PO SCH ×2 (08:26→22:07)
[2020-10-16] MEDS: DEXAMETHASONE 4 MG/ML, 1ML IVPush SCH (08:26)
[2020-10-16] MEDS: GUAIFENESIN ER 600 MG TABLET PO SCH ×2 (08:27→22:07)
[2020-10-16] MEDS: NICOTINE 21 MG/24 HR PATCH.TD24 TD SCH (08:28)
[2020-10-16] MEDS: ZINC SULFATE 220 MG CAPSULE PO SCH (08:28)
[2020-10-16] MEDS: CHOLECALCIFEROL 1,000 UNIT TABLET PO SCH (08:28)
[2020-10-16] MEDS: VENLAFAXINE XR 37.5MG CAP.ER.24H PO SCH (08:31)
--- NOTE | 2020-10-16 08:34 | NUR ---
RPT TO BIANCA RN PT TO GO TO RM 503. NEW COLOSTOMY BAG PLACED AND PT AM MEDICATIONS GIVEN NOTED. DILT GTT INFUSING W/O DIFFICULTY AT 10ML/HR. MEAL TRAY PROVIDED
[2020-10-16 08:58] VITALS: BP 123/81
[2020-10-16] MEDS ORDERED: SALMETEROL INH SCH (09:00)
[2020-10-16] MEDS ORDERED: OMEPRAZOLE 20 MG CAPSULE.DR PO SCH (09:00)
[2020-10-16] MEDS ORDERED: FLUTICASONE PROPIONATE INH SCH (09:00)
[2020-10-16] MEDS ORDERED: [UNRECOGNIZED DRUG - OTHER] INH SCH (09:00)
[2020-10-16] MEDS: ALBUTEROL-IPRATROPIUM MDI INH INH SCH ×3 (10:36→22:06)
[2020-10-16] MEDS ORDERED: LORazepam 2 MG/ML, 1ML IV PRN ×5 (11:00)
[2020-10-16] MEDS ORDERED: ACETAMINOPHEN 325 MG TABLET PO PRN (11:00)
[2020-10-16] MEDS ORDERED: LORazepam 0.5MG TABLET PO PRN (11:00)
[2020-10-16] MEDS ORDERED: LORazepam 1MG TABLET PO PRN ×2 (11:00)
[2020-10-16] MEDS ORDERED: THIAMINE 200 MG in DEXTROSE 5% 50 ML IVPB ONE (11:00)
[2020-10-16 11:33] LABS: BASOPHILS % (AUTO) 0 % (0-1); EOSINOPHILS % (AUTO) 0 % (1-7); LYMPHOCYTES % (AUTO) 5 % (22-44); MEAN CORPUSCULAR HEMOGLOBIN 26.6 pg (27.0-34.8); MEAN CORPUSCULAR HGB CONC 31.9 g/dL (32.4-35.8); MEAN PLATELET VOLUME 8.3 fL (7.4-10.4); MONOCYTES % (AUTO) 1 % (2-9); NEUTROPHILS % (AUTO) 94 % (42-75); PLATELET COUNT 321 x10^3/uL (130-400); RED BLOOD COUNT 4.61 x10^6/uL (3.82-5.3); RED CELL DISTRIBUTION WIDTH 21.5 % (9.6-15.2)
[2020-10-16 11:46] LABS: ALBUMIN 3.7 g/dL (3.4-5.0); ANION GAP 10 mmol/L (5-15); CALCIUM 8.4 mg/dL (8.5-10.1); CHLORIDE 100 mmol/L (98-107)
[2020-10-16 11:48] LABS: ALANINE AMINOTRANSFERASE 30 U/L (12-78); ALKALINE PHOSPHATASE 103 U/L (45-117); BILIRUBIN,TOTAL 1.1 mg/dL (0.2-1.0); CREATININE 1.13 mg/dL (0.55-1.02)
[2020-10-16] MEDS ORDERED: FOLIC ACID 1 MG TABLET PO ONE (12:00)
[2020-10-16] MEDS ORDERED: THIAMINE 100MG TABLET PO ONE (12:00)
[2020-10-16] MEDS ORDERED: FOLIC ACID 5 MG/ML IM ONE (12:00)
[2020-10-16] MEDS: INSULIN LISPRO 100 UNITS/ML, PEN SQ-INSULIN SCH ×3 (13:01→22:07)
[2020-10-16 14:59] VITALS: BP 110/71
[2020-10-16 20:28] VITALS: BP 136/100
[2020-10-16] MEDS: INSULIN GLARGINE 100 UNITS/ML, PEN SQ-INSULIN SCH (22:08)
[2020-10-16] MEDS: ATORVASTATIN 40 MG TABLET PO SCH (22:08)
[2020-10-16] MEDS: LORazepam 1MG TABLET PO PRN (22:49)
[2020-10-17] MEDS: LORazepam 1MG TABLET PO PRN ×3 (01:02→20:42)
[2020-10-17 01:54] VITALS: BP 109/75
[2020-10-17 05:13] LABS: BASOPHILS % (AUTO) 0 % (0-1); EOSINOPHILS % (AUTO) 0 % (1-7); LYMPHOCYTES % (AUTO) 7 % (22-44); MEAN CORPUSCULAR HEMOGLOBIN 26.5 pg (27.0-34.8); MEAN CORPUSCULAR HGB CONC 31.9 g/dL (32.4-35.8); MEAN PLATELET VOLUME 8.4 fL (7.4-10.4); MONOCYTES % (AUTO) 3 % (2-9); NEUTROPHILS % (AUTO) 90 % (42-75); PLATELET COUNT 253 x10^3/uL (130-400); RED BLOOD COUNT 4.31 x10^6/uL (3.82-5.3); RED CELL DISTRIBUTION WIDTH 22.3 % (9.6-15.2)
[2020-10-17 05:21] LABS: ALANINE AMINOTRANSFERASE 29 U/L (12-78); ALBUMIN 3.3 g/dL (3.4-5.0); ANION GAP 8 mmol/L (5-15); CALCIUM 8.8 mg/dL (8.5-10.1); CHLORIDE 104 mmol/L (98-107)
[2020-10-17 05:24] LABS: ALKALINE PHOSPHATASE 89 U/L (45-117); BILIRUBIN,TOTAL 0.7 mg/dL (0.2-1.0); TOTAL PROTEIN 7.5 g/dL (6.4-8.2)
[2020-10-17 06:47] VITALS: BP 136/75
[2020-10-17] MEDS: LEVOTHYROXINE 25 MCG TABLET PO SCH (09:10)
[2020-10-17] MEDS: VENLAFAXINE XR 37.5MG CAP.ER.24H PO SCH (09:10)
[2020-10-17] MEDS: INSULIN LISPRO 100 UNITS/ML, PEN SQ-INSULIN SCH ×4 (09:10→20:41)
[2020-10-17] MEDS: METOPROLOL TARTRATE 50 MG TAB PO SCH ×2 (09:11→16:28)
[2020-10-17] MEDS: GUAIFENESIN ER 600 MG TABLET PO SCH ×2 (09:11→19:52)
[2020-10-17] MEDS: MULTIVITAMINS/MINERALS TABLET PO SCH (09:11)
[2020-10-17] MEDS: CHOLECALCIFEROL 1,000 UNIT TABLET PO SCH (09:11)
[2020-10-17] MEDS: POTASSIUM CHLORIDE 20 MEQ TAB.ER.PRT PO SCH ×3 (09:11→15:53)
[2020-10-17] MEDS: OMEPRAZOLE 20 MG CAPSULE.DR PO SCH (09:11)
[2020-10-17] MEDS: FUROSEMIDE 20 MG TABLET PO SCH (09:12)
[2020-10-17] MEDS: NICOTINE 21 MG/24 HR PATCH.TD24 TD SCH (09:12)
[2020-10-17] MEDS: APIXABAN 5 MG TABLET PO SCH ×2 (09:12→19:53)
[2020-10-17] MEDS: DEXAMETHASONE 4 MG/ML, 1ML IVPush SCH (09:12)
[2020-10-17] MEDS: ZINC SULFATE 220 MG CAPSULE PO SCH (09:12)
[2020-10-17] MEDS: ASCORBIC ACID 500 MG TABLET PO SCH ×2 (09:12→15:53)
[2020-10-17] MEDS: ALBUTEROL-IPRATROPIUM MDI INH INH SCH ×4 (09:13→19:53)
[2020-10-17 13:57] VITALS: BP 105/72
[2020-10-17] MEDS: ATORVASTATIN 40 MG TABLET PO SCH (19:52)
[2020-10-17 19:55] VITALS: BP 128/87
[2020-10-17] MEDS: INSULIN GLARGINE 100 UNITS/ML, PEN SQ-INSULIN SCH (20:42)
[2020-10-18 01:36] VITALS: BP 106/72
[2020-10-18] MEDS: METOPROLOL TARTRATE 50 MG TAB PO SCH (05:41)
[2020-10-18] MEDS: LEVOTHYROXINE 25 MCG TABLET PO SCH (05:42)
[2020-10-18] MEDS: ALBUTEROL-IPRATROPIUM MDI INH INH SCH ×3 (05:42→12:22)
[2020-10-18 05:55] LABS: BASOPHILS % (AUTO) 0 % (0-1); EOSINOPHILS % (AUTO) 0 % (1-7); LYMPHOCYTES % (AUTO) 9 % (22-44); MEAN CORPUSCULAR HEMOGLOBIN 26.6 pg (27.0-34.8); MEAN PLATELET VOLUME 8.2 fL (7.4-10.4); MONOCYTES % (AUTO) 5 % (2-9); NEUTROPHILS % (AUTO) 86 % (42-75); PLATELET COUNT 293 x10^3/uL (130-400); RED BLOOD COUNT 4.06 x10^6/uL (3.82-5.3); RED CELL DISTRIBUTION WIDTH 22.7 % (9.6-15.2)
[2020-10-18 06:08] LABS: ANION GAP 7 mmol/L (5-15); CALCIUM 8.6 mg/dL (8.5-10.1); CHLORIDE 101 mmol/L (98-107); CREATININE 1.08 mg/dL (0.55-1.02)
[2020-10-18 07:51] VITALS: BP 101/59
[2020-10-18] MEDS: APIXABAN 5 MG TABLET PO SCH (08:48)
[2020-10-18] MEDS: OMEPRAZOLE 20 MG CAPSULE.DR PO SCH (08:48)
[2020-10-18] MEDS: NICOTINE 21 MG/24 HR PATCH.TD24 TD SCH (08:48)
[2020-10-18] MEDS: VENLAFAXINE XR 37.5MG CAP.ER.24H PO SCH (08:48)
[2020-10-18] MEDS: GUAIFENESIN ER 600 MG TABLET PO SCH (08:48)
[2020-10-18] MEDS: DEXAMETHASONE 4 MG/ML, 1ML IVPush SCH (08:49)
[2020-10-18] MEDS: INSULIN LISPRO 100 UNITS/ML, PEN SQ-INSULIN SCH ×2 (08:49→12:11)
[2020-10-18] MEDS: POTASSIUM CHLORIDE 20 MEQ TAB.ER.PRT PO SCH ×2 (08:49→12:14)
[2020-10-18] MEDS: MULTIVITAMINS/MINERALS TABLET PO SCH (08:50)
[2020-10-18] MEDS: FUROSEMIDE 20 MG TABLET PO SCH (08:50)
[2020-10-18] MEDS ORDERED: ENOXAPARIN 40 MG/0.4 ML SQ SCH (09:00)
[2020-10-18] MEDS ORDERED: VENL37.52 PO (12:27)
[2020-10-18] MEDS ORDERED: METO-95 PO (12:27)
[2020-10-18] MEDS ORDERED: ALBU6.7H8 INH (12:27)
[2020-10-18] MEDS ORDERED: FLUT1BLS9 INH (12:27)
[2020-10-18] MEDS ORDERED: IPRA4AER INH (12:27)
[2020-10-18] MEDS ORDERED: OMEP-110 PO (12:27)
[2020-10-18] MEDS ORDERED: APIX5TAB PO (12:27)
[2020-10-18] MEDS ORDERED: ATOR40TA78 PO (12:27)
[2020-10-18] MEDS ORDERED: LEVO25TA2 PO (12:27)
[2020-10-18] MEDS ORDERED: PRED20TA PO (15:47)
== END 2020-10-18 17:06 | disposition home or self-care (01) | DRG 140 ==
LOC: ED 03:24 → EDIP 06:15 → 5SO 08:41 → EDIP 08:42 → 5SO 08:56
PROVIDERS: ADMIT Internal Medicine; ATTEND Family Medicine
DX: J44.1 Chronic obstructive pulmonary disease with (acute) exacerbation (principal); J96.21 Acute and chronic respiratory failure with hypoxia; I50.42 Chronic combined systolic (congestive) and diastolic (congestive) heart failure; I11.0 Hypertensive heart disease with heart failure; E11.9 Type 2 diabetes mellitus without complications; F10.20 Alcohol dependence, uncomplicated; F17.200 Nicotine dependence, unspecified, uncomplicated; F20.9 Schizophrenia, unspecified; I25.10 Atherosclerotic heart disease of native coronary artery without angina pectoris; I25.2 Old myocardial infarction; I48.91 Unspecified atrial fibrillation; K50.90 Crohn's disease, unspecified, without complications; Z20.822 Contact with and (suspected) exposure to COVID-19; Z59.0 Homelessness; Z63.8 Other specified problems related to primary support group; Z85.828 Personal history of other malignant neoplasm of skin; Z91.14 Patient's other noncompliance with medication regimen; K21.9 Gastro-esophageal reflux disease without esophagitis
CPT/HCPCS: 36415; 71045; 80048; 80053; 82962; 83605; 83615; 83735; 83880; 84100; 84484; 85025; 85379; 85610; 85730; 86140; 87040; 93005; 96365; 96375; G0378; J1100; J1940; U0005; J1815; J2930; J7030; U0003